=== PATIENT | female | born 1965 | race Caucasian/White ===

== ENCOUNTER 2021-01-29 20:25 | Emergency (ER) | payer MEDICARE, MEDICAID, SELFPAY ==
--- NOTE | ~2021-01-29 | XR_ITS ---
EXAMINATION: PORTABLE CHEST 1 VIEW CLINICAL INFORMATION: AMS . COMPARISON: 10/31/2015. TECHNIQUE: Portable frontal view of the chest was obtained. FINDINGS: Left-sided chest port is seen with the tip near the expected cavoatrial junction. Lungs are well expanded. No superimposed focal infiltrate, effusion, edema, or pneumothorax. Prominent skinfold incidentally noted. Cardiac and mediastinal silhouettes within normal limits for size. No acute bony abnormality. XR/XR chest 1V IMPRESSION: Left-sided chest port. No acute airspace disease.
--- NOTE | ~2021-01-29 | CT_ITS ---
EXAMINATION: CT HEAD WITHOUT CONTRAST CLINICAL INFORMATION: Altered mental status COMPARISON: 09/22/2016 TECHNIQUE: Contiguous axial imaging was performed from the skull base to vertex without intravenous administration of contrast. This CT examination was performed using dose optimization techniques as appropriate, variously including the following: *Automated exposure control *Adjustment of mA and/or kV according to patient size (this includes techniques or standardized protocols for targeted exams where dose is matched to indication/reason for exam; i.e. extremities or head) *Use of iterative reconstruction technique DLP: 642 mGy-cm FINDINGS: There is no evidence of acute intracranial hemorrhage or territorial infarction. No abnormal mass effect or midline shift is seen. Trejo to white matter differentiation is well preserved. No extra-axial fluid collections are identified. The ventricles are normal in size. There is no abnormal attenuation within the brain parenchyma. The osseous structures and soft tissues are normal. The mastoid air cells and visualized portions of the paranasal sinuses are well aerated. CT/CT head/brain wo con IMPRESSION: No acute intracranial pathology.
--- NOTE | 2021-01-29 20:41 | ECG_ITS ---
Test Reason : AMS Blood Pressure : / mmHG Vent. Rate : 067 BPM Atrial Rate : 067 BPM P-R Int : 166 ms QRS Dur : 086 ms QT Int : 470 ms P-R-T Axes : 060 -05 044 degrees QTc Int : 496 ms Normal sinus rhythm Prolonged QT Abnormal ECG When compared with ECG of 22-SEP-2016 12:59, Vent. rate has decreased BY 39 BPM Referred By: Alma Lopes Electronically Signed By:PAIGE EVANGELISTA MD
[2021-01-29 20:43] VITALS: BP 125/74; PULSE 77; RESP 12; TEMP 36.3; O2SAT 99; BMI 29.9
--- NOTE | 2021-01-29 20:44 | ED.AMS ---
HPI - Altered Mental Status General Chief Complaint: Psychiatric Symptoms Stated Complaint: crisis Time Seen by Provider: 01/29/21 20:38 Source: EMS Mode of arrival: EMS Limitations: altered mental status History of Present Illness HPI narrative: EMS states they were called for possible seizure, patient was sitting on the toilet with just a bra on speaking in 1 word answers then became agitated per EMS she was given 6mg IV versed for agitation, found to have BS of 62 given 8mL of D10 - at this time on arrival to the ED she is somnolent and difficult to arouse, no trauma noted, review of records show hx of significant neuropsychiatric history with similar presentations in the past MD complaint: other (per EMS called for possible seizure activity) Onset (ago): unknown Severity: severe Consistency of symptoms: unknown Context: history of similar presentation Associated symptoms: denies other symptoms Treatments prior to arrival: glucose and other (IV versed 6mg) Related Data Home Medications Medication Instructions Recorded Confirmed albuterol sulfate 2 puff PO Q6H PRN 01/29/21 01/29/21 cholestyramine (with sugar) 4 g PO BID 01/29/21 01/29/21 citalopram 2 tab PO DAILY 01/29/21 01/29/21 cyclobenzaprine 1 tab PO BID PRN 01/29/21 01/29/21 dextroamphetamine-amphetamine 1 tab PO BID 01/29/21 01/29/21 levetiracetam 250 mg PO TID 01/29/21 01/29/21 ondansetron HCl 1 tab PO TID PRN 01/29/21 01/29/21 oxycodone 1 tab PO QID PRN 01/29/21 01/29/21 sumatriptan succinate 100 mg PO DAILY MRX1 PRN 01/29/21 01/29/21 Allergies Allergy/AdvReac Type Severity Reaction Status Date / Time bee pollen [Bee Stings] Allergy Mild ANAPHYLAXIS Unverified 03/27/20 15:06 codeine [Codeine] Allergy Mild ANAPHYLAXIS Unverified 03/27/20 15:06 Penicillins Allergy Mild UNKNOWN Unverified 03/27/20 15:06 bee stings Allergy Unknown anaphylaxis Uncoded 09/02/11 00:00 Codeine Phosphate Allergy Unknown stomach Uncoded 09/02/11 00:00 upset Penicillin Allergy Unknown anaphylaxis Uncoded 09/02/11 00:00 Review of Systems Review of Systems: ROS unable to be obtained due to altered mental status PMFSH Past Medical History Source: old records reviewed Medical History (Updated 01/30/21 @ 00:44 by Alma Lopes DO) Asthma Breast cancer Depression Factor V deficiency HTN (hypertension) Migraines Polysubstance abuse Seizure Uterine cancer Von Willebrand disease Surgical History (Updated 01/29/21 @ 20:50 by Alma Lopes DO) H/O gastric bypass History of hysterectomy Social History Social History (Updated 01/29/21 @ 20:50 by Alma Lopes DO) Patient Tobacco Use Status: Current everyday Tobacco user Patient : No Physical Exam Vital Signs: Vital Signs: Last Vital Signs Temp 97.4 F 01/29/21 20:43 Pulse 67 01/29/21 22:23 Resp 10 L 01/29/21 22:23 BP 137/80 01/29/21 22:23 Pulse Ox 99 01/29/21 22:23 Body Mass Index 29.9 Appearance: Somnolent difficult to arouse, moderate acute distress Eyes: Pupils equal, round and reactive to light. no nystagmus, sluggish ENT: Pharynx normal. Neck: Normal inspection. Neck supple. CVS: Normal heart rate and rhythm. Pulses normal. Respiratory: No respiratory distress. Breath sounds normal. Abdomen: Soft and nontender. Skin: Skin warm and dry. Normal skin color. Normal skin turgor. Extremities: No lower extremity edema. No calf ttp Neuro: due to degree of somnolence unable to participate in exam Course Course Course Narrative: patient still very sedated VS stable patient with stable VS still very sleepy from prehospital versed, signed out to Dr. Fernandes pending metabolization and recheck of AMS MDM - Altered Mental Status MDM Narrative Medical decision making narrative: 56 yo female with hx of neuropsychiatric history, polysubstance abuse, asthma, seizures, von willebrand at this time unsure what event occured prior to arrival will need labs, UA, CT head for ICH, close respiratory monitoring on end tidal patient given 6mg of versed for agitation, review of EMR notes hx of similar episodes in the past and then deep sedation following IV medications, dispo per reuslts and findings. Lab Data Result diagrams: 01/29/21 21:42 01/29/21 21:42 Labs: Lab Results 01/29/21 01/29/21 01/29/21 Range/Units 21:15 21:41 21:42 WBC 7.5 (4.8-10.8) X10*3/uL RBC 4.00 L (4.20-5.50) X10*6/uL Hgb 12.8 (12.0-16.0) g/dl Hct 38.2 (37-47) % MCV 95.5 (80-98) fL MCH 32.0 (27.0-33.0) pg MCHC 33.5 (31.0-35.0) g/dl RDW 13.3 (11.0-16.0) % Plt Count 143 L (160-400) X10*3/uL MPV 10.8 (9.4-12.3) fL Immature Gran % (Auto) 0.4 (0.0-0.4) % Neut % (Auto) 66.4 (45-73) % Lymph % (Auto) 27.0 (20-40) % [place] % (Auto) 6.1 (2-11) % Eos % (Auto) 0.0 (0-4) % Baso % (Auto) 0.1 (0-2) % Lymph # (Auto) 2.0 (1.2-4.9) X10*3/uL [place] # (Auto) 0.5 (0.1-1.2) X10*3/uL Eos # (Auto) 0.0 (0.0-0.4) X10*3/uL Baso # (Auto) 0.0 (0.0-0.2) X10*3/uL Abs Immat Gran (auto) 0.03 (0.00-0.03) X10*3/uL Absolute Neuts (auto) 5.0 (2.0-8.3) X10*3/uL Absolute Nucleated RBC 0.000 (0.0-0.012) X10*3/uL Nucleated RBC % (auto) 0.0 (0.0-0.2) /100WBC PT (9.9-13.0) SEC INR (0.9-1.1) APTT (24.1-38.0) SEC VBG pH (7.32-7.43) VBG pCO2 mmHg VBG pO2 mmHg VBG HCO3 (22-26) mmol/L VBG O2 Saturation % VBG Base Excess mmol/L Sodium (135-145) mmol/L Potassium (3.3-5.1) mmol/L Chloride (96-108) mmol/L Carbon Dioxide (22-29) mmol/L Anion Gap (12-20) BUN (9-16) mg/dL Creatinine (0.5-1.4) mg/dL Estim Creat Clear Calc Estimated GFR POC Glucose 86 (60-115) mg/dL Random Glucose (60-115) mg/dL Calcium (8.4-10.2) mg/dL Magnesium (1.6-2.6) mg/dL Total Bilirubin (0.0-1.0) mg/dL Direct Bilirubin (0.0-0.5) mg/dL AST (5-31) U/L ALT (0-31) U/L Alkaline Phosphatase (39-117) U/L Ammonia 20 (13-55) umol/L Total Creatine Kinase (26-140) U/L Troponin I High Sens (<3.5-17.0) ng/L Total Protein (6.5-8.0) g/dL Albumin (3.5-5.0) g/dL Lipase (8-78) U/L TSH (0.32-4.0) uIU/mL Urine Color Urine Appearance Urine pH (5.0-8.0) Ur Specific [place] (1.005-1.025) Urine Protein (NEG-TRACE) MG/DL Urine Glucose (UA) (NEG) MG/DL Urine Ketones (NEG) MG/DL Urine Blood (NEG) Urine Nitrite (NEG) Ur Leukocyte Esterase (NEG) Salicylates (15-30) mg/dL Urine Opiates Screen (Not Detect) Acetaminophen (<30) mcg/mL Ur Barbiturates Screen (Not Detect) Ur Phencyclidine Scrn (Not Detect) Ur Amphetamines Screen (Not Detect) U Benzodiazepines Scrn (Not Detect) Urine Cocaine Screen (Not Detect) U Marijuana (THC) Screen (Not Detect) Ethyl Alcohol mg/dL COVID-19 (YOLIS) (Negative) COVID-19 Clin Com 01/29/21 01/29/21 01/29/21 Range/Units 21:42 21:42 21:42 WBC (4.8-10.8) X10*3/uL RBC (4.20-5.50) X10*6/uL Hgb (12.0-16.0) g/dl Hct (37-47) % MCV (80-98) fL MCH (27.0-33.0) pg MCHC (31.0-35.0) g/dl RDW (11.0-16.0) % Plt Count (160-400) X10*3/uL MPV (9.4-12.3) fL Immature Gran % (Auto) (0.0-0.4) % Neut % (Auto) (45-73) % Lymph % (Auto) (20-40) % [place] % (Auto) (2-11) % Eos % (Auto) (0-4) % Baso % (Auto) (0-2) % Lymph # (Auto) (1.2-4.9) X10*3/uL [place] # (Auto) (0.1-1.2) X10*3/uL Eos # (Auto) (0.0-0.4) X10*3/uL Baso # (Auto) (0.0-0.2) X10*3/uL Abs Immat Gran (auto) (0.00-0.03) X10*3/uL Absolute Neuts (auto) (2.0-8.3) X10*3/uL Absolute Nucleated RBC (0.0-0.012) X10*3/uL Nucleated RBC % (auto) (0.0-0.2) /100WBC PT 11.8 (9.9-13.0) SEC INR 1.0 (0.9-1.1) APTT 58.9 H (24.1-38.0) SEC VBG pH (7.32-7.43) VBG pCO2 mmHg VBG pO2 mmHg VBG HCO3 (22-26) mmol/L VBG O2 Saturation % VBG Base Excess mmol/L Sodium 142 (135-145) mmol/L Potassium 3.9 (3.3-5.1) mmol/L Chloride 112 H (96-108) mmol/L Carbon Dioxide 19 L (22-29) mmol/L Anion Gap 15 (12-20) BUN 30 H (9-16) mg/dL Creatinine 1.87 H (0.5-1.4) mg/dL Estim Creat Clear Calc 35.4 Estimated GFR 28 POC Glucose (60-115) mg/dL Random Glucose 80 (60-115) mg/dL Calcium 9.2 (8.4-10.2) mg/dL Magnesium 1.9 (1.6-2.6) mg/dL Total Bilirubin 0.4 (0.0-1.0) mg/dL Direct Bilirubin 0.2 (0.0-0.5) mg/dL AST 29 (5-31) U/L ALT 17 (0-31) U/L Alkaline Phosphatase 114 (39-117) U/L Ammonia (13-55) umol/L Total Creatine Kinase 193 H (26-140) U/L Troponin I High Sens 9.8 (<3.5-17.0) ng/L Total Protein 6.2 L (6.5-8.0) g/dL Albumin 4.2 (3.5-5.0) g/dL Lipase 11 (8-78) U/L TSH 1.39 (0.32-4.0) uIU/mL Urine Color Urine Appearance Urine pH (5.0-8.0) Ur Specific [place] (1.005-1.025) Urine Protein (NEG-TRACE) MG/DL Urine Glucose (UA) (NEG) MG/DL Urine Ketones (NEG) MG/DL Urine Blood (NEG) Urine Nitrite (NEG) Ur Leukocyte Esterase (NEG) Salicylates 8.1 L (15-30) mg/dL Urine Opiates Screen (Not Detect) Acetaminophen 3 (<30) mcg/mL Ur Barbiturates Screen (Not Detect) Ur Phencyclidine Scrn (Not Detect) Ur Amphetamines Screen (Not Detect) U Benzodiazepines Scrn (Not Detect) Urine Cocaine Screen (Not Detect) U Marijuana (THC) Screen (Not Detect) Ethyl Alcohol mg/dL COVID-19 (YOLIS) (Negative) COVID-19 Clin Com 01/29/21 01/29/21 01/29/21 Range/Units 21:42 21:42 21:43 WBC (4.8-10.8) X10*3/uL RBC (4.20-5.50) X10*6/uL Hgb (12.0-16.0) g/dl Hct (37-47) % MCV (80-98) fL MCH (27.0-33.0) pg MCHC (31.0-35.0) g/dl RDW (11.0-16.0) % Plt Count (160-400) X10*3/uL MPV (9.4-12.3) fL Immature Gran % (Auto) (0.0-0.4) % Neut % (Auto) (45-73) % Lymph % (Auto) (20-40) % [place] % (Auto) (2-11) % Eos % (Auto) (0-4) % Baso % (Auto) (0-2) % Lymph # (Auto) (1.2-4.9) X10*3/uL [place] # (Auto) (0.1-1.2) X10*3/uL Eos # (Auto) (0.0-0.4) X10*3/uL Baso # (Auto) (0.0-0.2) X10*3/uL Abs Immat Gran (auto) (0.00-0.03) X10*3/uL Absolute Neuts (auto) (2.0-8.3) X10*3/uL Absolute Nucleated RBC (0.0-0.012) X10*3/uL Nucleated RBC % (auto) (0.0-0.2) /100WBC PT (9.9-13.0) SEC INR (0.9-1.1) APTT (24.1-38.0) SEC VBG pH 7.26 L (7.32-7.43) VBG pCO2 39 mmHg VBG pO2 93 mmHg VBG HCO3 18 L (22-26) mmol/L VBG O2 Saturation 94.0 % VBG Base Excess -8.3 mmol/L Sodium (135-145) mmol/L Potassium (3.3-5.1) mmol/L Chloride (96-108) mmol/L Carbon Dioxide (22-29) mmol/L Anion Gap (12-20) BUN (9-16) mg/dL Creatinine (0.5-1.4) mg/dL Estim Creat Clear Calc Estimated GFR POC Glucose (60-115) mg/dL Random Glucose (60-115) mg/dL Calcium (8.4-10.2) mg/dL Magnesium (1.6-2.6) mg/dL Total Bilirubin (0.0-1.0) mg/dL Direct Bilirubin (0.0-0.5) mg/dL AST (5-31) U/L ALT (0-31) U/L Alkaline Phosphatase (39-117) U/L Ammonia (13-55) umol/L Total Creatine Kinase (26-140) U/L Troponin I High Sens (<3.5-17.0) ng/L Total Protein (6.5-8.0) g/dL Albumin (3.5-5.0) g/dL Lipase (8-78) U/L TSH (0.32-4.0) uIU/mL Urine Color Urine Appearance Urine pH (5.0-8.0) Ur Specific [place] (1.005-1.025) Urine Protein (NEG-TRACE) MG/DL Urine Glucose (UA) (NEG) MG/DL Urine Ketones (NEG) MG/DL Urine Blood (NEG) Urine Nitrite (NEG) Ur Leukocyte Esterase (NEG) Salicylates (15-30) mg/dL Urine Opiates Screen (Not Detect) Acetaminophen (<30) mcg/mL Ur Barbiturates Screen (Not Detect) Ur Phencyclidine Scrn (Not Detect) Ur Amphetamines Screen (Not Detect) U Benzodiazepines Scrn (Not Detect) Urine Cocaine Screen (Not Detect) U Marijuana (THC) Screen (Not Detect) Ethyl Alcohol < 10 mg/dL COVID-19 (YOLIS) Negative (Negative) COVID-19 Clin Com See Note 01/29/21 01/29/21 Range/Units 22:59 22:59 WBC (4.8-10.8) X10*3/uL RBC (4.20-5.50) X10*6/uL Hgb (12.0-16.0) g/dl Hct (37-47) % MCV (80-98) fL MCH (27.0-33.0) pg MCHC (31.0-35.0) g/dl RDW (11.0-16.0) % Plt Count (160-400) X10*3/uL MPV (9.4-12.3) fL Immature Gran % (Auto) (0.0-0.4) % Neut % (Auto) (45-73) % Lymph % (Auto) (20-40) % [place] % (Auto) (2-11) % Eos % (Auto) (0-4) % Baso % (Auto) (0-2) % Lymph # (Auto) (1.2-4.9) X10*3/uL [place] # (Auto) (0.1-1.2) X10*3/uL Eos # (Auto) (0.0-0.4) X10*3/uL Baso # (Auto) (0.0-0.2) X10*3/uL Abs Immat Gran (auto) (0.00-0.03) X10*3/uL Absolute Neuts (auto) (2.0-8.3) X10*3/uL Absolute Nucleated RBC (0.0-0.012) X10*3/uL Nucleated RBC % (auto) (0.0-0.2) /100WBC PT (9.9-13.0) SEC INR (0.9-1.1) APTT (24.1-38.0) SEC VBG pH (7.32-7.43) VBG pCO2 mmHg VBG pO2 mmHg VBG HCO3 (22-26) mmol/L VBG O2 Saturation % VBG Base Excess mmol/L Sodium (135-145) mmol/L Potassium (3.3-5.1) mmol/L Chloride (96-108) mmol/L Carbon Dioxide (22-29) mmol/L Anion Gap (12-20) BUN (9-16) mg/dL Creatinine (0.5-1.4) mg/dL Estim Creat Clear Calc Estimated GFR POC Glucose (60-115) mg/dL Random Glucose (60-115) mg/dL Calcium (8.4-10.2) mg/dL Magnesium (1.6-2.6) mg/dL Total Bilirubin (0.0-1.0) mg/dL Direct Bilirubin (0.0-0.5) mg/dL AST (5-31) U/L ALT (0-31) U/L Alkaline Phosphatase (39-117) U/L Ammonia (13-55) umol/L Total Creatine Kinase (26-140) U/L Troponin I High Sens (<3.5-17.0) ng/L Total Protein (6.5-8.0) g/dL Albumin (3.5-5.0) g/dL Lipase (8-78) U/L TSH (0.32-4.0) uIU/mL Urine Color YELLOW Urine Appearance CLEAR Urine pH 6.0 (5.0-8.0) Ur Specific [place] 1.015 (1.005-1.025) Urine Protein NEG (NEG-TRACE) MG/DL Urine Glucose (UA) NEG (NEG) MG/DL Urine Ketones 5 (NEG) MG/DL Urine Blood NEG (NEG) Urine Nitrite NEG (NEG) Ur Leukocyte Esterase NEG (NEG) Salicylates (15-30) mg/dL Urine Opiates Screen Not Detected (Not Detect) Acetaminophen (<30) mcg/mL Ur Barbiturates Screen Not Detected (Not Detect) Ur Phencyclidine Scrn Not Detected (Not Detect) Ur Amphetamines Screen POSITIVE H (Not Detect) U Benzodiazepines Scrn POSITIVE H (Not Detect) Urine Cocaine Screen Not Detected (Not Detect) U Marijuana (THC) Screen Not Detected (Not Detect) Ethyl Alcohol mg/dL COVID-19 (YOLIS) (Negative) COVID-19 Clin Com ECG Data ECG #1: Attestation: I personally reviewed and interpreted this ECG as follows: ECG interpretation date: 01/29/21 ECG interpretation time: 22:08 Interpretation: Rate: 67 Rhythm: NSR [place]: left Normal P waves. Normal XAVIER. Normal QRS complex. ST T wave : normal no JUANY qTC: prolonged prior studies: no acute ischemia The study has been interpreted contemporaneously by me. . Discharge Plan Discharge Clinical Impression: Acute alteration in mental status, ROBEL (acute kidney injury) Prescriptions: No Action cyclobenzaprine 10 mg tablet 1 tab PO BID PRN (Reason: Spasms) RF: 0 citalopram 10 mg tablet 2 tab PO DAILY RF: 0 sumatriptan succinate 100 mg tablet 100 mg PO DAILY MRX1 PRN (Reason: Headache) RF: 0 ondansetron HCl 8 mg tablet 1 tab PO TID PRN (Reason: nausea/vomiting) RF: 0 dextroamphetamine-amphetamine 10 mg tablet 1 tab PO BID RF: 0 oxycodone 15 mg tablet 1 tab PO QID PRN (Reason: pain) RF: 0 levetiracetam 250 mg tablet 250 mg PO TID RF: 0 albuterol sulfate 90 mcg/actuation HFA aerosol inhaler 2 puff PO Q6H PRN (Reason: wheezing) RF: 0 cholestyramine (with sugar) 4 gram powder 4 g PO BID RF: 0
[2021-01-29 21:18] LABS: Glucose, Whole Blood 86 mg/dL (60-115)
[2021-01-29] MEDS: 0.9 % Sodium Chloride 1,000 ML 999 ML IVCONT (21:46)
[2021-01-29 21:48] LABS: MANUAL DIFF FLAG NO
[2021-01-29 21:50] LABS: Venous Blood Gas Refer to POC result
[2021-01-29 21:51] LABS: Basophils Percent Auto 0.1 % (0-2); Hematocrit 38.2 % (37-47); Hemoglobin 12.8 g/dl (12.0-16.0); Imm Gran Abs Auto 0.03 X10*3/uL (0.00-0.03); Imm Gran Pct Auto 0.4 % (0.0-0.4); Mean Corpuscular HGB Conc 33.5 g/dl (31.0-35.0); Mean Corpuscular Volume 95.5 fL (80-98); Mean Platelet Volume 10.8 fL (9.4-12.3); Monocytes Absolute Auto 0.5 X10*3/uL (0.1-1.2); Monocytes Percent Auto 6.1 % (2-11); Neutrophils Percent Auto 66.4 % (45-73); Platelet Count 143 X10*3/uL (160-400); Red Cell Distribution Width 13.3 % (11.0-16.0); White Blood Count 7.5 X10*3/uL (4.8-10.8)
[2021-01-29 21:52] LABS: VBG Base Excess -8.3 mmol/L; VBG HCO3 18 mmol/L (22-26); VBG pCO2 39 mmHg; VBG pH 7.26 (7.32-7.43); VBG pO2 93 mmHg
[2021-01-29 21:59] LABS: Prothrombin Time 11.8 SEC (9.9-13.0)
[2021-01-29 22:02] LABS: Partial Thromboplastin Time 58.9 SEC (24.1-38.0)
[2021-01-29 22:07] LABS: COVID-19 Test Negative (Negative); IDNOW Serial# 9DD0AD1C
--- NOTE | 2021-01-29 22:17 | PHA.MEDREC ---
Pharmacy Consult ? Medication Reconciliation Pharmacy has completed the medication reconciliation. Patient could not be aroused. Medication reconciliation done using pharmacy history, son, and RX bottles
[2021-01-29 22:20] LABS: Ethanol < 10 mg/dL
[2021-01-29 22:23] VITALS: BP 137/80; PULSE 67; RESP 10; O2SAT 99
[2021-01-29 22:25] LABS: Acetaminophen LAB 3 mcg/mL (<30); Alanine Aminotransferase 17 U/L (0-31); Albumin Level 4.2 g/dL (3.5-5.0); Alkaline Phosphatase 114 U/L (39-117); Anion Gap 15 (12-20); Aspartate Amino Transferase 29 U/L (5-31); Bilirubin Direct 0.2 mg/dL (0.0-0.5); Bilirubin Total 0.4 mg/dL (0.0-1.0); Blood Urea Nitrogen 30 mg/dL (9-16); Calcium 9.2 mg/dL (8.4-10.2); Carbon Dioxide 19 mmol/L (22-29); Chloride 112 mmol/L (96-108); Creatinine Clr Calc Pharmacy 35.4; Estimated Glomerular Filt Rate 28; Glucose Random 80 mg/dL (60-115); Lipase 11 U/L (8-78); Magnesium 1.9 mg/dL (1.6-2.6); Potassium 3.9 mmol/L (3.3-5.1); Sodium 142 mmol/L (135-145); Total Protein 6.2 g/dL (6.5-8.0); Troponin-I High Sensitivity 9.8 ng/L (<3.5-17.0)
[2021-01-29 22:30] LABS: Ammonia 20 umol/L (13-55)
[2021-01-29 22:43] LABS: TSH reflex Free T4 1.39 uIU/mL (0.32-4.0)
[2021-01-29 23:04] LABS: Salicylate 8.1 mg/dL (15-30)
[2021-01-29 23:12] LABS: Glucose Urine UA NEG (NEG); Leukocyte Esterase Urine NEG (NEG); Nitrite Urine NEG (NEG); Specific Gravity - Urine 1.015 (1.005-1.025); Urine Blood NEG (NEG); Urine Ketones 5 MG/DL (NEG); Urine Protein NEG (NEG-TRACE)
[2021-01-29 23:13] LABS: Appearance Urine CLEAR; Color Urine YELLOW
[2021-01-29 23:38] LABS: Amphetamine Screen Urine POSITIVE (Not Detect); Barbiturates, Urine Not Detected (Not Detect); Benzodiazepines Screen Urine POSITIVE (Not Detect); Cannabinoid Screen Urine Not Detected (Not Detect); Cocaine Screen Urine Not Detected (Not Detect); Opiate Screen Urine Not Detected (Not Detect); Phencyclidine Screen Urine Not Detected (Not Detect)
[2021-01-30 01:00] LABS: Glucose, Whole Blood 118 mg/dL (60-115)
--- NOTE | 2021-01-30 01:22 | PC.NURSE ---
pts son Jeronimo ([phone]) called for an update on his mother. this nurse let him know that we are continuously monitoring her status and vital signs and are awaiting for some of the lab results to come back but otherwise she is sleeping and in stable condition. Jeronimo requests a phone call with any updates or changes in status. he has no other questions or comments at this time.
[2021-01-30 02:39] VITALS: BP 176/94; PULSE 60; RESP 12; O2SAT 100
--- NOTE | 2021-01-30 02:54 | PC.NURSE ---
bp 176/94 notified no new orders at this time
[2021-01-30 04:12] LABS: Anion Gap 15 (12-20); Blood Urea Nitrogen 26 mg/dL (9-16); Carbon Dioxide 19 mmol/L (22-29); Chloride 114 mmol/L (96-108); Creatinine Clr Calc Pharmacy 44.5; Estimated Glomerular Filt Rate 36; Glucose Random 64 mg/dL (60-115); Potassium 3.9 mmol/L (3.3-5.1); Sodium 144 mmol/L (135-145)
[2021-01-30 05:03] VITALS: BP 189/95; PULSE 56; RESP 14; O2SAT 100
--- NOTE | 2021-01-30 05:04 | PC.NURSE ---
bp 189/95 (Dom) aware, no new orders at this time.
--- NOTE | 2021-01-30 05:11 | PC.NURSE ---
pt intermittently waking up and groaning/shouting out, not verbalizing anything or saying any specific words. pt unable to provide verbal response to nurse when asked questions regarding her pain or when assessing orientation status. pt will rock back and forth in bed while groaning and then settle back down and fall asleep. MD Lopez) notified. pt is asleep again at this time. call pelletier in reach.
[2021-01-30 05:45] VITALS: BP 145/82; PULSE 76; RESP 19; O2SAT 100
--- NOTE | 2021-01-30 06:59 | PC.NURSE ---
report taken from phyllis galdamez pt here for ?seizure activity at home, per family pt recieved blood transfusion yesterday morning. 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 pt has remained unable to formulate clear thoughts while in the er, has been intermittently showing labile movements throughout er stay. pt appears to be lying in stretcher, moaning. rr even/unlabored wctm for dc needs.
[2021-01-30] MEDS: levETIRAcetam 250 MG TABLET PO (09:28)
[2021-01-30] MEDS: Amphetamine Mixed Salts 10 MG TABLET PO (09:28)
[2021-01-30] MEDS: Escitalopram Oxalate 10 MG TABLET PO (09:29)
--- NOTE | 2021-01-30 10:40 | MHC.CARE ---
CARE Team attempted to completed assessment on Pt. Pt was orientated to person only. CARE Team contacted Pts son Jeronimo to obtain collateral information. Jeronimo reported he contacted EMS after his mother had what appeared to be a seizure. 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 Pts normal basic line functioning is like any other person . Pt has neurologist through [facility] and recently underwent significant testing. He reported he believes she is medication compliant. 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 Pt has recently had a kidney infection and is unsure if antibotics have been completed or outcotme? Pt had chronic pain and is followed by a pain management clinic - Dr. Nicolas Arechiga in [place]. Pt has a history of [facility]PLOC admission 20 plus years ago. Pts son does not have concerns at this time that it is psychiatrically related. CARE Team informed attending RN and Provider of this information. CARE Team will not have further intervention at this time pending provider review of medical records from [facility] and [facility].
--- NOTE | 2021-01-30 10:48 | PC.NURSE ---
son called and wanted clients neurologist in [place] updated Nancy Lopez [phone] or [phone]
[2021-01-30] MEDS: LORazepam 0.5 MG TABLET 2 MG PO (11:07)
[2021-01-30] MEDS: Haloperidol Lactate 5 MG/ML VIAL IM (15:17)
[2021-01-30] MEDS: LORazepam 2 MG/ML VIAL IM (15:17)
[2021-01-30 16:36] VITALS: RESP 17
--- NOTE | 2021-01-30 20:53 | MHC.CARE ---
Bedsearch Note: Clinical packet faxed to the following facilities for review [facility] ~ ph: [phone] fax: [phone] [facility] ~ ph: [phone] fax: [phone] [facility] ~ ph: [phone] fax: [phone] [facility] ~ ph: [phone] fax: [phone] [facility] ~ ph: [phone] fax: [phone]
--- NOTE | 2021-01-30 21:14 | PC.NURSE ---
Cholestyramine unavailable in ED Pyxis. This RN contacted Pharmacy to bring medication. Will administer medication upon arrival.
[2021-01-31 01:25] VITALS: BP 127/91; PULSE 87; RESP 20; TEMP 36.2; O2SAT 99
--- NOTE | 2021-01-31 01:47 | PC.NURSE ---
Spoke with patient's son (Jeronimo). Given update on patient's condition. Just prior to phone call from son, pt was standing in doorway appearing confused, stated I'm cold and given warm blanket. Pt redirected to bed without issue.
--- NOTE | 2021-01-31 06:51 | PC.NURSE ---
Patient woke around 6am and was a bit restless, pacing and standing in hallway. A&Ox3, remains confused; I want to go home , reminded of why she is here and the plan for a bed search. Patient remained calm and cooperative. Tends to keep eyes closed when standing needing reminders to keep eyes open as remains a fall risk. Denies pain. Will continue to monitor.
[2021-01-31 08:00] VITALS: BP 166/92; PULSE 63; RESP 16; TEMP 36.3; O2SAT 98
--- NOTE | 2021-01-31 09:46 | PC.NURSE ---
Tentative plan per care team to d/c pt home after talking with pt and pt's son.
[2021-01-31] MEDS: Escitalopram Oxalate 10 MG TABLET PO (10:19)
[2021-01-31] MEDS: Amphetamine Mixed Salts 10 MG TABLET PO (10:19)
[2021-02-05 11:12] LABS: Levetiracetam Keppra 38.3 mcg/mL (12.0-46.0)
== END 2021-01-31 10:50 | disposition home or self-care (01) ==
PROVIDERS: Emergency Medicine; Physician Assistant Medical; Emergency Provider Emergency Medicine Emergency Medical Services
DX: F33.1 Major depressive disorder, recurrent, moderate (principal); N17.9 Acute kidney failure, unspecified; D68.0 Von Willebrand disease; D68.51 Activated protein C resistance; I10 Essential (primary) hypertension; Z20.822 Contact with and (suspected) exposure to COVID-19; Z79.899 Other long term (current) drug therapy
CPT/HCPCS: 36415; 70450; 71045; 80048; 80076; 80143; 80177; 80179; 80307; 81003; 82077; 82140; 82550; 82803; 82947; 83690; 83735; 84443; 84484; 85025; 85610; 85730; 87635; 93005; 96372; 99285; J2060

== ENCOUNTER 2023-01-05 09:59 | Outpatient (RCR) | payer MEDICARE, MEDICAID, SELFPAY | END 2023-01-05 23:59 | disposition home or self-care (01) | LOC: HO.PHPA 09:59 | PROVIDERS: Visit Provider Psychiatry & Neurology Psychiatry | DX: F33.1 Major depressive disorder, recurrent, moderate (principal); F42.9 Obsessive-compulsive disorder, unspecified; F43.10 Post-traumatic stress disorder, unspecified; F11.21 Opioid dependence, in remission; F14.21 Cocaine dependence, in remission | CPT/HCPCS: 90791 ==

== ENCOUNTER → 2023-02-03 09:28 | Outpatient (BNV) | payer MEDICARE, MEDICAID, SELFPAY | PROVIDERS: Visit Provider Psychiatry & Neurology Psychiatry | DX: F43.10 Post-traumatic stress disorder, unspecified (principal) | CPT/HCPCS: 90792 ==

== ENCOUNTER 2023-02-04 09:15 | Outpatient (RCR) | payer MEDICARE, MEDICAID, SELFPAY ==
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
--- NOTE | 2023-02-07 09:30 | HO.PHP ---
I called and left a message for the client to call as she did not come in . I requested a call back.
--- NOTE | 2023-02-07 09:52 | HO.PHP ---
I called Shaista the client emergency contact and left a message re clients absence and not returning call. I requested a return call .
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
--- NOTE | 2023-02-09 11:07 | HO.PHP ---
On 02/07/23 Terrie called stating that she is sorry she didn't call and informed us that she was at [facility] being assessed for inpt.
--- NOTE | 2023-02-09 11:11 | HO.PHP ---
I called the clients phone re check on inpatient status. I could not leave a message because her mail box was full.
--- NOTE | 2023-02-09 11:22 | HO.PHP ---
On 02/08/23 I spoke with the clients personal lines appraiser , Nataliya Tsang. She informed me that the client was admitted inpatient at [facility].
== END 2023-02-04 23:59 | disposition admitted as inpatient to this hospital (09) ==
LOC: HO.PHPA 09:15
PROVIDERS: Visit Provider Psychiatry & Neurology Psychiatry
DX: F43.10 Post-traumatic stress disorder, unspecified (principal); Z79.899 Other long term (current) drug therapy
CPT/HCPCS: 90791; 90853

== ENCOUNTER → 2023-04-29 11:45 | Outpatient (BNV) | payer MEDICARE, MEDICAID, SELFPAY | PROVIDERS: Visit Provider Psychiatry & Neurology Psychiatry | DX: F43.10 Post-traumatic stress disorder, unspecified (principal); F33.2 Major depressive disorder, recurrent severe without psychotic features | CPT/HCPCS: 90792; 99213; 99499 ==

== ENCOUNTER 2023-05-06 14:23 | Outpatient (REF) | payer MEDICARE, MEDICAID, SELFPAY ==
[2023-05-06 15:27] LABS: Amphetamine Screen Urine Not Detected (Not Detect); Barbiturates, Urine Not Detected (Not Detect); Benzodiazepines Screen Urine Not Detected (Not Detect); Cannabinoid Screen Urine Not Detected (Not Detect); Cocaine Screen Urine Not Detected (Not Detect); Fentanyl, urine Not Detected (Not Detect); Opiate Screen Urine POSITIVE (Not Detect); Phencyclidine Screen Urine Not Detected (Not Detect)
== END 2023-05-06 14:24 | disposition home or self-care (01) ==
LOC: HO.LNP 14:23
PROVIDERS: Visit Provider Psychiatry & Neurology Psychiatry
DX: F11.20 Opioid dependence, uncomplicated (principal); F14.21 Cocaine dependence, in remission
CPT/HCPCS: 80307

== ENCOUNTER 2023-05-23 11:45 | Outpatient (RCR) | payer MEDICARE, MEDICAID, SELFPAY ==
[2023-04-28 10:46] VITALS: BP 77/59; PULSE 60; TEMP 36.8
[2023-04-28 10:54] VITALS: BMI 23.0
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
--- NOTE | 2023-04-29 08:20 | HO.PHP ---
The clients case was reviewed and opened in treatment team.
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
--- NOTE | 2023-05-02 09:38 | PC.NURSE ---
Jayda did not show up to the program this morning. I called her and she stated she is not coming in today as she has a migraine headache. She reports VNA services for medication management started on Tuesday and the VNA nurse is coming to see her today also. She plans on coming to the program Tomorrow.
--- NOTE | 2023-05-06 12:50 | HO.PHP ---
PHP [facility] and med management for Liana.
--- NOTE | 2023-05-06 15:10 | HO.PHPPROGNO ---
Subjective Subjective Date of Service: 05/06/23 Reason For Visit: anxiety,depression,PTSD Interim History: Patient seen for follow-up. Wants to discuss whether medication is effective. She reports she is not having her best day, got triggered yesterday in groups. It becomes apparent to her at times that she is still struggling with anxiety, depression and it frustrated her that her medications arent helping her feel better and feeling like whats' the point of taking them and whether they are doing any good. Sleep has also been disrupted, both due to nightmares and chronic pain. She continues on Seoquel 50 mg qhs for sleep, she also has 25 mg BID prn however blood pressures have been running low and she is scheduled to followup with her community providers regarding the hypotension. For now we wont make any changes with the Serouqel, for same reasons, she also can not take prazosin) Instead will focus on general sleep hygiene and mitigating symptoms contributing to poor sleep. Namely anxiety, PTSD. She has felt the duloxetine had been helpful but never felt fully treated. She denies any AE at 90 mg qd (she takes regularly in mary AM) and is open to increasing dose to 120 mg and will split dose (60 mg BID). to target ongoing depressive sx, anxiety and sx of PTSD. Denies any thoughts of harming herself or others. No agitation or psychosis. Medication Compliance: Yes Side effects from medications: No Mental Status Exam Mental Status Exam Narrative: Patient Appearance: Well Grooomed Patient Orientation: Person, Place, Time and Situation Level of Consciousness: Awake and Alert Patient Behavior: Appropriate, Cooperative and Good Eye Contact Mood Description: Depressed and Anxious Affect Description: Appropriate and Anxious Patient Cognition Impaired: No Ability to Follow Directions: Excellent Speech Pattern: Spontaneous Speech Memory Description: Intact Hallucinations: None Delusions: Not Present Thought Process: no evidence of disorganization or poverty Thought Content: Circumstantial, ruminative Judgement: Good Diagnostics Vital Signs (24Hr): BMI result Body Mass Index 23.0 Assessment & Plan Assessment & Plan (1) Complex posttraumatic stress disorder: Status: Acute Code(s): F43.10 - Post-traumatic stress disorder, unspecified (2) Major depressive disorder in partial remission: Status: Acute Code(s): F32.4 - Major depressive disorder, single episode, in partial remission Patient educated on: diagnosis and medication risk/benefits Informed Consent: understands Reason for contiued partial hosp. stay Substantial Risk for: inability to function and med/psych decompensation Certification I certify that partial hospital treatment is medically necessary due to the symptoms and problems resulting from the patient's mental illness and the failure to treat the patient at the partial hospital level of care would likely result in the patient requiring inpatient psychiatric care which could not be prevented at a less intensive level of care. Total time managing care of this patient today __30__ minutes. Discharge Plan Discharge Attending provider: Beth Briones Medications: No Action ondansetron HCl 8 mg tablet 1 tab PO TID PRN (Reason: nausea/vomiting) albuterol sulfate 90 mcg/actuation HFA aerosol inhaler 2 puff PO Q6H PRN (Reason: wheezing) quetiapine 25 mg tablet 25 mg PO BID Patient Comments: Patient stated she takes prn. She stated her prescriber is aware. quetiapine 25 mg tablet 50 mg PO BEDTIME Rx Instructions: 2 tabs at HS. loperamide 2 mg capsule 2 mg PO Q4H PRN (Reason: diarrhea) duloxetine 30 mg capsule,delayed release(DR/EC) 30 mg PO DAILY duloxetine 60 mg capsule,delayed release(DR/EC) 60 mg PO DAILY multivitamin Tablet 1 tab PO DAILY cetirizine 10 mg tablet 10 mg PO DAILY sumatriptan succinate 100 mg tablet 100 mg PO DAILY PRN (Reason: Migraine Headache) clonazepam 0.5 mg tablet 0.5 mg PO BID PRN (Reason: anxiety) oxycodone 15 mg tablet 15 mg PO 5XD Patient Comments: Patient stated takes prn. bumetanide 0.5 mg tablet 0.5 mg PO BID omeprazole 20 mg capsule,delayed release(DR/EC) 20 mg PO DAILY epinephrine 0.3 mg/0.3 mL auto-injector 0.3 mg IM ONCE levetiracetam 1,000 mg tablet 1,000 mg PO BID
--- NOTE | 2023-05-11 00:58 | HO.PHPPROGNO ---
Subjective Subjective Date of Service: 05/10/23 Reason For Visit: anxiety,depression,PTSD Interim History: Patient seen today for follow-up. Reporting continued issues with sleep, getting out of control . Feels it is affecting her anxiety and stress tolerance. Also poor sleep making it harder to appreciate any mood changes. She has an appointment tomorrow to meet with her operating systems programmer for work-up involving issues with low blood pressures. She agrees to speak with her operating systems programmer regarding potential change from quetiapine to olanzapine to better address sleep and perhaps mood as well. She will see if he has any reservations about this plan. I am hoping she will be more sensitive to the olanzapine, which may provider more benefit at a lower dose than the equivalent dose on Seroquel which she has grown more tolerant of. She denies any thoughts of giving up on life, no thoughts harming self or others at this time. No AH or VH. Medication Compliance: Yes Side effects from medications: No Attending Groups: Yes Mental Status Exam Mental Status Exam Narrative: Patient alert and oriented. In no acute distress. Patient Appearance: Well Grooomed, adentulous Level of Consciousness: Awake and Alert Patient Behavior: Appropriate, Cooperative and Good Eye Contact Mood Description: Depressed and Anxious Affect Description: Appropriate and Anxious Patient Cognition Impaired: No Ability to Follow Directions: Excellent Speech Pattern: Spontaneous Speech Memory Description: Intact Hallucinations: None Delusions: Not Present Thought Process: no evidence of disorganization or poverty Thought Content: Circumstantial, ruminative Judgement: Good Insight: good Diagnostics Vital Signs (24Hr): BMI result Body Mass Index 23.0 Assessment & Plan Assessment & Plan (1) Major depressive disorder in partial remission: Status: Acute Code(s): F32.4 - Major depressive disorder, single episode, in partial remission (2) Complex posttraumatic stress disorder: Status: Acute Code(s): F43.10 - Post-traumatic stress disorder, unspecified Plan will continue medications without changes and plan to follow up later in the week to revisit sleep issues, once she has met with operating systems programmer for follow-up re hypotension Patient educated on: diagnosis and medication risk/benefits Informed Consent: understands Reason for contiued partial hosp. stay Substantial Risk for: med/psych decompensation Certification I certify that partial hospital treatment is medically necessary due to the symptoms and problems resulting from the patient's mental illness and the failure to treat the patient at the partial hospital level of care would likely result in the patient requiring inpatient psychiatric care which could not be prevented at a less intensive level of care. Total time managing care of this patient today __30__ minutes. Discharge Plan Discharge Attending provider: Beth Briones Medications: No Action ondansetron HCl 8 mg tablet 1 tab PO TID PRN (Reason: nausea/vomiting) albuterol sulfate 90 mcg/actuation HFA aerosol inhaler 2 puff PO Q6H PRN (Reason: wheezing) quetiapine 25 mg tablet 25 mg PO BID Patient Comments: Patient stated she takes prn. She stated her prescriber is aware. quetiapine 25 mg tablet 50 mg PO BEDTIME Rx Instructions: 2 tabs at HS. loperamide 2 mg capsule 2 mg PO Q4H PRN (Reason: diarrhea) duloxetine 30 mg capsule,delayed release(DR/EC) 30 mg PO DAILY duloxetine 60 mg capsule,delayed release(DR/EC) 60 mg PO DAILY multivitamin Tablet 1 tab PO DAILY cetirizine 10 mg tablet 10 mg PO DAILY sumatriptan succinate 100 mg tablet 100 mg PO DAILY PRN (Reason: Migraine Headache) clonazepam 0.5 mg tablet 0.5 mg PO BID PRN (Reason: anxiety) oxycodone 15 mg tablet 15 mg PO 5XD Patient Comments: Patient stated takes prn. bumetanide 0.5 mg tablet 0.5 mg PO BID omeprazole 20 mg capsule,delayed release(DR/EC) 20 mg PO DAILY epinephrine 0.3 mg/0.3 mL auto-injector 0.3 mg IM ONCE levetiracetam 1,000 mg tablet 1,000 mg PO BID
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
--- NOTE | 2023-05-11 15:20 | PC.NURSE ---
Jayda called and stated she went to complete the scheduled cardiac stress test however when she got there she was told that she needed to do the test in the hospital as they want her to do a nuclear stress test. She stated her BP at cardiac was 68/62 which is good for her. She also stated she told them she thinks she had a seizure in her sleep last night as she was incontinent of urine. She also reports she was having PTSD flashbacks last night at 3 am. She stated her BUN and creatinine are, daya high and she has an appointment tomorrow to complete more lab work and complete an EEG and other cardiac tests. She stated she is waiting for the hospital to call her with the date of the nuclear stress test. She stated she would be leaving the program early to get the tests.
[2023-05-12 11:04] VITALS: BP 108/70; PULSE 74
--- NOTE | 2023-05-12 11:09 | PC.NURSE ---
BP 108/70 P 74. Patient stated she was not feeling well this morning and her son called an ambulance. Jayda stated she got into an argument with her son this morning as she did not want him to call an ambulance however she stated she did not feel well. She stated she received IV fluids in the hospital. Stated she feels better physically. Stated she can only have 2 liters of fluids a day d/t her kidney and cardiac issues. Dr Briones is aware. Dr Briones is also aware that patient stated 2 nights ago she thinks she had a seizure as she woke up incontinent. She also stated she was struggling with PTSD sxs at 3 am that morning.
--- NOTE | 2023-05-12 22:29 | HO.PHPPROGNO ---
Subjective Subjective Date of Service: 05/12/23 Reason For Visit: anxiety,depression,PTSD Interim History: Patient seen for follow-up today. Last seen on 05/10. She had a cardiology appointment yesterday and said she would mention the plan to change to olanzapine which her provider was reportedly agreeable with. She is eager to start on this as sleep has been poor, and really has been struggling, on account of PTSD. She's been overwhelmed by constant flashbacks and traumatic re-experiencing associated with a strong sensory component which has been particularly unnerving, and is getting easily triggered by scents in the environment and mundane tactile provocations (sleeve rubbing against her arm). I cant stand being in my skin . She is more anxious and labile today, became momentarily tearful during the encounter, but was able to self-regulate. The remainder of our discussion she provided medical updates. Claims Associate reportedly did not know what to make of her low blood pressures and she said they mentioned having her see an production painter about this, but did not know specifically for what. 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 She suspects this may be contributing to seizures, as she had reportedly experienced a seizure the night before last. She will be needing to follow up with neurology and will be getting an EEG and then undergoing a nuclear stress test, as she was unable to undergo the stress test yesterday as planned because plywood layup line core layer realized there was a potential interaction between the pharmacological agents used for stress testing and her antiepileptic meds. She is mostly upset she says that now she has virtually no chance of getting her drivers license back. Relays how powerless she feels and just further pushes into a state feeling she has no control over what life I have left . She says she would be okay if something happened and she ceased to exist, she notes that she is not afraid to and that she has all her affairs in order, her son's care is all set for the future. She just adds that she could never do anything to take her life because she could not do that to her son who would be devastated she says if she ever took her life. she therefore will continue to have thoughts of dying but denies any intention or plan, saying she never will consider this an option because of the burden of guilt it would heap upon her son. Medication Compliance: Yes Side effects from medications: No Mental Status Exam Mental Status Exam Narrative: Patient alert and oriented. In no acute distress. Patient Appearance: Well Grooomed, adentulous Level of Consciousness: Awake and Alert Patient Behavior: Appropriate, Cooperative and Good Eye Contact Mood Description: Depressed and Anxious Affect Description: Appropriate and Anxious Patient Cognition Impaired: No Ability to Follow Directions: Excellent Speech Pattern: Spontaneous Speech Memory Description: Intact Hallucinations: None Delusions: Not Present Thought Process: no evidence of disorganization or poverty Thought Content: Circumstantial, ruminative Judgement: fair but adequate Insight: intact Diagnostics Vital Signs (24Hr): Vital Signs - 24 hr 05/12/23 11:04 Pulse Rate 74 Blood Pressure 108/70 BMI result Body Mass Index 23.0 Assessment & Plan Assessment & Plan (1) Major depressive disorder in partial remission: Status: Acute Code(s): F32.4 - Major depressive disorder, single episode, in partial remission (2) Complex posttraumatic stress disorder: Status: Acute Code(s): F43.10 - Post-traumatic stress disorder, unspecified Assessment and Plan: We discuss switching off Seroquel and starting Zyprexa to better address sleep and target anxiety, PTSD, mood. Plan start olanzapine 2.5 mg this evening at 6pm take another 2.5 mg olanzapine at bedtime (unless already tired enough to sleep) duloxetine increased to 60 mg BID refills also sent for Klonopin (discussed concerns/ risks for sedation with concurrent BZD and ZYprexa) pt will not take together this evneing Patient educated on: diagnosis and medication risk/benefits Informed Consent: understands Reason for contiued partial hosp. stay Substantial Risk for: harm to self, inability to function, rapid decompensation and med/psych decompensation Certification I certify that partial hospital treatment is medically necessary due to the symptoms and problems resulting from the patient's mental illness and the failure to treat the patient at the partial hospital level of care would likely result in the patient requiring inpatient psychiatric care which could not be prevented at a less intensive level of care. Total time managing care of this patient today _40___ minutes. Discharge Plan Discharge Attending provider: Beth Briones Medications: New olanzapine 5 mg tablet See Rx Instructions .ROUTE .COMPLEX Qty: 30 0RF Rx Instructions: 5 mg orally ; take 1 tablet po qHS; 1/2 tablet po BID PRN agitation Changed clonazepam 0.5 mg tablet 0.5 mg PO TID PRN (Reason: anxiety) 10 Days Qty: 30 0RF duloxetine 60 mg capsule,delayed release(DR/EC) 60 mg PO BID 15 Days Qty: 30 0RF Discontinued quetiapine 25 mg tablet 25 mg PO BID Patient Comments: Patient stated she takes prn. She stated her prescriber is aware. quetiapine 25 mg tablet 50 mg PO BEDTIME Rx Instructions: 2 tabs at HS. duloxetine 30 mg capsule,delayed release(DR/EC) 30 mg PO DAILY No Action ondansetron HCl 8 mg tablet 1 tab PO TID PRN (Reason: nausea/vomiting) albuterol sulfate 90 mcg/actuation HFA aerosol inhaler 2 puff PO Q6H PRN (Reason: wheezing) loperamide 2 mg capsule 2 mg PO Q4H PRN (Reason: diarrhea) multivitamin Tablet 1 tab PO DAILY cetirizine 10 mg tablet 10 mg PO DAILY sumatriptan succinate 100 mg tablet 100 mg PO DAILY PRN (Reason: Migraine Headache) oxycodone 15 mg tablet 15 mg PO 5XD Patient Comments: Patient stated takes prn. bumetanide 0.5 mg tablet 0.5 mg PO BID omeprazole 20 mg capsule,delayed release(DR/EC) 20 mg PO DAILY epinephrine 0.3 mg/0.3 mL auto-injector 0.3 mg IM ONCE levetiracetam 1,000 mg tablet 1,000 mg PO BID Stand Alone Forms: Patient Portal Discharge page
--- NOTE | 2023-05-13 09:43 | HO.PHP ---
Late entry: [facility] staff member followed up with Liana if she completed the [employer] paperwork for her to fax for OP therapy and med provider. Liana disclosed that she forgot it at home and will bring it in tomorrow. [facility] staff member was receptive.
--- NOTE | 2023-05-13 09:55 | PC.NURSE ---
Addendum entered by Melissa Fernandes RN 05/13/23 10:03: Kirk also stated his mother was incontinent of urine. Kirk stated he is quadriplegic. Original Note: Liana did not show up to the program this morning. I called Liana and her son Jeronimo answered the phone who stated he was going to call us. He stated his mother had another seizure last night. He stated his mother is, wiped out and not coherent and usually presents this way after a seizure. He stated his MANUFACTURING TEAM MEMBER Jina is also there and she moved his mother to the living room couch and are going to call an ambulance. I spoke to Meliza and she also stated Liana's current presentation is not unusual after a seizure. They report she is breathing. Dr Briones also present during the conversation. I told Kirk to keep us posted. Kirk called back and asked who his mother uses for a VNA as he wanted to give the ambulance drivers a list of her medications. I told him I think it is [facility]. He stated she has a new medication however he stated she did not start the new medication yet (Zyprexa). I have a release of information to speak to Jeronimo and started to give him a list written down by his MANUFACTURING TEAM MEMBER however the ambulance showed up to the home and I spoke to the lease purchase truck driver and provided him with a medication list. team otr truck driver stated that she has a pulse and is breathing and they will be transporting her to the hospital.
--- NOTE | 2023-05-16 09:25 | PC.NURSE ---
Liana stated she was admitted to the ICU over the weekend. She stated she was dx with Psychogenic Seizures and dehydration. She stated she was not coherent. She stated she has multiple tests scheduled for May 27, 2023 and has a f/u appointment with Dr Araujo in a week. BP 106/73 P 71. Requested she bring in a copy of her discharge paperwork from the hospital. Dr Briones is aware.
[2023-05-16 09:33] VITALS: BP 106/73; PULSE 71
--- NOTE | 2023-05-16 13:17 | HO.PHPPROGNO ---
Subjective Subjective Date of Service: 05/16/23 Reason For Visit: anxiety,depression,PTSD Diagnostics Vital Signs (24Hr): Vital Signs - 24 hr 05/16/23 09:33 Pulse Rate 71 Blood Pressure 106/73 BMI result Body Mass Index 23.0 Assessment & Plan Certification I certify that partial hospital treatment is medically necessary due to the symptoms and problems resulting from the patient's mental illness and the failure to treat the patient at the partial hospital level of care would likely result in the patient requiring inpatient psychiatric care which could not be prevented at a less intensive level of care. Total time managing care of this patient today ____ minutes. Discharge Plan Discharge Attending provider: Beth Briones Medications: New olanzapine 5 mg tablet See Rx Instructions .ROUTE .COMPLEX Qty: 30 0RF Rx Instructions: 5 mg orally ; take 1 tablet po qHS; 1/2 tablet po BID PRN agitation Changed clonazepam 0.5 mg tablet 0.5 mg PO TID PRN (Reason: anxiety) 10 Days Qty: 30 0RF duloxetine 60 mg capsule,delayed release(DR/EC) 60 mg PO BID 15 Days Qty: 30 0RF Discontinued quetiapine 25 mg tablet 25 mg PO BID Patient Comments: Patient stated she takes prn. She stated her prescriber is aware. quetiapine 25 mg tablet 50 mg PO BEDTIME Rx Instructions: 2 tabs at HS. duloxetine 30 mg capsule,delayed release(DR/EC) 30 mg PO DAILY No Action ondansetron HCl 8 mg tablet 1 tab PO TID PRN (Reason: nausea/vomiting) albuterol sulfate 90 mcg/actuation HFA aerosol inhaler 2 puff PO Q6H PRN (Reason: wheezing) loperamide 2 mg capsule 2 mg PO Q4H PRN (Reason: diarrhea) multivitamin Tablet 1 tab PO DAILY cetirizine 10 mg tablet 10 mg PO DAILY sumatriptan succinate 100 mg tablet 100 mg PO DAILY PRN (Reason: Migraine Headache) oxycodone 15 mg tablet 15 mg PO 5XD Patient Comments: Patient stated takes prn. bumetanide 0.5 mg tablet 0.5 mg PO BID omeprazole 20 mg capsule,delayed release(DR/EC) 20 mg PO DAILY epinephrine 0.3 mg/0.3 mL auto-injector 0.3 mg IM ONCE levetiracetam 1,000 mg tablet 1,000 mg PO BID Stand Alone Forms: Patient Portal Discharge page
--- NOTE | 2023-05-16 15:59 | HO.PHP ---
[facility] staff member faxed over the referral for OP therapy and a med provider appointment through [facility] for Liana. PHP staff member is awaiting on a scheduled intake date.
--- NOTE | 2023-05-16 17:47 | P.EN_ITS ---
Event Note Date of Service: 05/16/23 Event Note: Telephone check in with patient today as telemedicine visit not an option due to staffing availability. Jayda returned to the program today since having the latest seizure Tuesday morning. Was hospitalized over the weekend, admitted to ICU. 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 Today she is normotensive 106/73. P71. Jayda continues to experience acute PTSD symptoms, nightmares, high anxiety/hypervigilence, flashbacks. She recalls waking at 4am Tuesday from a nightmare, prior to seizure. She is aware PTSD likely causing pseudoseizures. She started on olanzapine last night, taking 1/2 tablet (=2.5 mg) in evening and repeating another 2.5 mg at bedtime as per our plan. She denies any adverse effects so far, she slept her usual 4 hours (same as she did on the 75 mg of Ser oquel). Did not feel sedated this AM so she took another 2.5 mg. She can not say for sure if it is helping with anxiety, but at least she notes not feeling sedated, and she says this is despite being very tired from being in the hospital. She notes also being sore all over from the fall and seizure. We also review fluid parameters and recommendations by med providers. She is still being held on the higher dose of diuretic until her swelling/fluid retention is reduced, and then dose will be returned. 2L water restriction is still in place, but is allowed to increase water intake so long as she is not having more swelling. She relays it is a difficult balance to strike between maintaining her blood pressure and not causes significant water retention/swelling with SIADH/ESRD. She denies restricting water for any other reason than medical, and although she says she has passive SI she says she would not intentionally mismanage her fluid intake. She states she is happy to be back at the program and is agreeable to increasing the olanzapine tonight to see if we can better manage anxiety and sleep. Plan to take 2.5 mg in evening and take 5 mg at bedtime. If she is not sedated in the morning, she can continue with 2.5 mg in Am prn anxiety/agitation. Will follow up tomorrow. Time Spent With Patient Time: Total time managing care of this patient today ____ minutes.
--- NOTE | 2023-05-17 08:30 | HO.PHP ---
[facility] staff member contacted [facility]'s insurance [employer] to explore an extension. [facility] staff member is awaiting a response.
--- NOTE | 2023-05-17 11:45 | HO.PHP ---
[facility] staff member met with Liana and explored if she would be okay with her disclosing the medical reasons as to why she missed services to her insurance company. Liana gave consent to give the insurance company details. Liana disclosed that she found out yesterday when she met with her nurse, that she may be taking medication wrong, which could have led to the seizures. Liana voiced that they did not find anything in her system that would have led to the cardiac issues so she is uncertain if medication played a role. [facility] staff explored if she was intentionally taking medication wrong. Liana disclosed that she was not and voiced that she has a VNA and her son provides her medication in a lock box. Liana voiced that she needs the medication list to be more clear around doses. [facility] staff was receptive. Liana expressed feeling anxious around not having a provider. [facility] staff contacted [employer] with Liana and left a message. [facility] staff member is awaiting a call back.
[2023-05-17 12:29] VITALS: BP 109/70; PULSE 66
--- NOTE | 2023-05-17 13:00 | HO.PHP ---
Liana informed the clinician that she received a phone call from [facility], in which they informed her it is a 4 to 6 week wait. Liana expressed concerns around how long the wait time is. [facility] staff member voiced that she can place a referral for medication to [facility] while she waits for an OP therapist through [facility]. Liana was receptive.
--- NOTE | 2023-05-17 14:15 | HO.PHP ---
[facility] staff received a VM from Francesca, through [employer]. [facility] staff returned Francesca's call, in which she provided an intake appointment through [facility] on May 24, 2023 at 2:30 PM. Francesca disclosed that it is at the [place] location and she be no longer then a month wait for the services since they prioritize hospital discharges. [facility] staff member was receptive. Francesca voiced that Liana cannot be in the partial program for that appointment and would need to be discharged. [facility] staff member was receptive and voiced she will relay to Liana.
--- NOTE | 2023-05-17 14:30 | HO.PHP ---
[facility] staff member informed Liana of her conversation with [facility] since she was anxious about the appointment. Liana was receptive and voiced that she is okay with discharging from [facility] on May 23, 2023 so she can attend this appointment. [facility] staff member was receptive. Liana disclosed she is going to contact [facility] for transportation to that appointment and follow up with her insurance to drop [employer] from her medicare plan. [facility] staff was receptive.
--- NOTE | 2023-05-17 14:40 | HO.PHPPROGNO ---
Subjective Subjective Date of Service: 05/17/23 Reason For Visit: anxiety,depression,PTSD Interim History: Patient seen for follow up. She reports being pleased that she was able to sleep over 5 hours, deeply. DId not get woken by nightmares, felt refreshed upon waking. Was able to tolerate taking another 2.5 mg this morning, and feels the additoin 2.5 mg in the evneing (as it is getting dark) is helpful in managing some of the anxiety/hypervigilence/flashbacks associated with nighttime. She reports mood is better but currently is worried about getting discharged because she does not have any current treaters and could be a number of weeks before she sees a therapist and psych provider. She says her PCP is not comfortable managing psych meds. She also said her visiting nurse noted she has limited prn clonazepam, although she has just started into the 14 day bottle I sent last week. She has been tolerating 2.5 mg olanzapine during the day and hopefully this will better manage the anxiety, and cut down on need for the clonazepam. We agree she can bump up the HS dose of olanzapine to 7.5 to see if there's room to improve sleep and symptoms, will dose to allow for flexibility of HS dose. Will continue 2.5 mg BID (AM and 1800). Denies any thoughts of harming self, denies SI. Medication Compliance: Yes Side effects from medications: No Mental Status Exam Mental Status Exam Narrative: Patient alert and oriented. In no acute distress. Patient Appearance: Well groomed, adentulous Level of Consciousness: Awake and Alert Patient Behavior: Appropriate, Cooperative and Good Eye Contact Mood Description: Anxious Affect Description: Full range, reactive, without tearfulness or lability, congruent Patient Cognition Impaired: No Ability to Follow Directions: Excellent Speech Pattern: Spontaneous Speech Memory Description: Intact Hallucinations: None Delusions: Not Present Thought Process: linear, coherent Thought Content: future-oriented, relevant to stressors, No h/h/SI Judgment: fair but adequate Insight: intact Diagnostics Vital Signs (24Hr): Vital Signs - 24 hr 05/17/23 12:29 Pulse Rate 66 Blood Pressure 109/70 BMI result Body Mass Index 23.0 Assessment & Plan Assessment & Plan (1) Complex posttraumatic stress disorder: Status: Acute Code(s): F43.10 - Post-traumatic stress disorder, unspecified (2) Major depressive disorder in partial remission: Qualifiers: Major depression recurrence: recurrent Qualified Code(s): F33.41 - Major depressive disorder, recurrent, in partial remission Status: Acute Code(s): F32.4 - Major depressive disorder, single episode, in partial remission Plan continue in PHP increase olanzapine to flex 5-7.5 mg qHS as directed continue olanzapine 2.5 mg BID prn (in AM and 1700) incr duloxetine to 60 mg BID (pt hasnt been able to access 120 mg dose until new rx written for visiting rn, has been at 90 mg/d) continue other medications Patient educated on: diagnosis and medication risk/benefits Informed Consent: understands Reason for contiued partial hosp. stay Substantial Risk for: med/psych decompensation Certification I certify that partial hospital treatment is medically necessary due to the symptoms and problems resulting from the patient's mental illness and the failure to treat the patient at the partial hospital level of care would likely result in the patient requiring inpatient psychiatric care which could not be prevented at a less intensive level of care. Total time managing care of this patient today _30___ minutes. Discharge Plan Discharge Attending provider: Beth Briones Medications: New olanzapine 2.5 mg tablet 2.5 mg PO BID PRN (Reason: anxiety, agitation) 14 Days Qty: 28 0RF Changed clonazepam 0.5 mg tablet 0.5 mg PO TID PRN (Reason: anxiety) 10 Days Qty: 30 0RF olanzapine 5 mg tablet 5 - 7.5 mg PO BEDTIME 14 Days Qty: 21 0RF Rx Instructions: as directed duloxetine 60 mg capsule,delayed release(DR/EC) 60 mg PO BID 15 Days Qty: 30 0RF Discontinued quetiapine 25 mg tablet 25 mg PO BID Patient Comments: Patient stated she takes prn. She stated her prescriber is aware. quetiapine 25 mg tablet 50 mg PO BEDTIME Rx Instructions: 2 tabs at HS. duloxetine 30 mg capsule,delayed release(DR/EC) 30 mg PO DAILY No Action ondansetron HCl 8 mg tablet 1 tab PO TID PRN (Reason: nausea/vomiting) albuterol sulfate 90 mcg/actuation HFA aerosol inhaler 2 puff PO Q6H PRN (Reason: wheezing) loperamide 2 mg capsule 2 mg PO Q4H PRN (Reason: diarrhea) multivitamin Tablet 1 tab PO DAILY cetirizine 10 mg tablet 10 mg PO DAILY sumatriptan succinate 100 mg tablet 100 mg PO DAILY PRN (Reason: Migraine Headache) oxycodone 15 mg tablet 15 mg PO 5XD Patient Comments: Patient stated takes prn. bumetanide 0.5 mg tablet 0.5 mg PO BID omeprazole 20 mg capsule,delayed release(DR/EC) 20 mg PO DAILY epinephrine 0.3 mg/0.3 mL auto-injector 0.3 mg IM ONCE levetiracetam 1,000 mg tablet 1,000 mg PO BID Stand Alone Forms: Patient Portal Discharge page
--- NOTE | 2023-05-18 12:45 | HO.PHP ---
[facility] staff member met with Liana to explore if she is comfortable with a male completing the intake assessment for her. Liana disclosed that she is not comfortable with talking about the trauma with him but is open to reviewing the family dynamics and the basic information. [facility] staff assessed if Liana would be okay with her providing the intake assessment from here so they can review the trauma. Liana disclosed that she is okay with that, just is not comfortable with discussing with a male due to that being a trigger. [facility] staff was receptive.
--- NOTE | 2023-05-18 13:15 | HO.PHP ---
[facility] staff contacted Francesca from [employer] asking if there was a female to complete the intake, Francesca mentioned that they only have a male who completes the hospital discharage intakes. PHP staff explored if she could fax over our assessment so he can review Liana's trauma history since she is not comfortable discussing with a male. Francesca disclosed that she understands and encouraged the PHP staff member to contact the main line and speak to the individual completing the intake. [facility] staff member was receptive. [facility] staff member contacted the main line but was unable to get through. A message was left. [facility] staff member is awaiting a call back.
--- NOTE | 2023-05-19 13:32 | HO.PHP ---
PHP staff met with Liana after group three due to her expressing concerns around family dynamics. Liana expressed that her brother and sister law did not notify her that they were coming to her home today. Liana was emotional around feeling like she was not being respected due to them not communicating this to her after 5 months of not speaking to one another. PHP staff member explored if Liana spoke about this in the first group. Liana disclosed that she did a little but needed to further process, not within a group setting. [facility] staff was receptive and actively listened to Liana. [facility] staff member provided support and empathized with Liana. PHP staff voiced if she is not ready to engage in a conversation due to not being in the right head space, to inform them that if they try. Liana was receptive. Liana talked about her past mistakes and trauma. Liana disclosed that she has the support of her mother and son. Liana stated if her brother and sister in law are at her home, she is going to take space and remove herself from the situation by going to her room.Liana voiced she will be able to have a conversation such as how are you but if they push for information on what she is doing for treatment, she does not want to do that. PHP staff was receptive and expressed that it is okay to set boundaries if she is not ready. Liana was in agreement. PHP staff explored safety. Liana voiced that she has SI without a plan or intent. Liana voiced that she will be safe and process in group tomorrow what the outcome was. PHP staff was receptive.
[2023-05-20 10:30] VITALS: BP 106/70; PULSE 65
--- NOTE | 2023-05-20 22:13 | P.PNPSP_ITS ---
Subjective Subjective Date of Service: 05/20/23 Reason For Visit: anxiety,depression,PTSD Interim History: Jayda reports improvements in sleep with olanzapine (she consolidated evening and HS doses =7.5 mg at bedtime). Slept a solid 5+ hours and says she is feeling better and rested . Continues with 2.5 mg dose olanzapine in the AM and feels her anxiety and PTSD symptoms are much more manageable. She is also alotted an additional 2.5 mg PRN for agitaiton, sleep. She would like to continue at these doses for now without change, and will see if she needs to utilize any prn dosing over the weekend before sending refills prior to discharge next week. She denies any suicidal ideation. Feeling more hopeful now with feeling she is better able to function and tolerate stressors with PTSD sx better managed. Remains normotensive, still complaining of LLE swelling, WIll be following up with providers next week. She denies any acute issues or concerns. Medication Compliance: Yes Side effects from medications: No Attending Groups: Yes Review of Systems Acute medical concerns: No Mental Status Exam Mental Status Exam Narrative: Patient alert and oriented. In no acute distress. Patient Appearance: Well groomed, adentulous Level of Consciousness: Awake and Alert Patient Behavior: Appropriate, Cooperative and Good Eye Contact Mood Description: Better , Less anxious, less depressed Affect Description: Full range, reactive, without tearfulness or lability, congruent Patient Cognition Impaired: No Ability to Follow Directions: Excellent Speech Pattern: Spontaneous Speech Memory Description: Intact Hallucinations: None Delusions: Not Present Thought Process: linear, coherent Thought Content: future-oriented, relevant to stressors, No h/h/SI Judgment: fair but adequate Insight: intact Diagnostics Vital Signs (24Hr): Vital Signs - 24 hr 05/20/23 10:30 Pulse Rate 65 Blood Pressure 106/70 BMI result Body Mass Index 23.0 Assessment & Plan Assessment & Plan (1) Complex posttraumatic stress disorder: Status: Acute Code(s): F43.10 - Post-traumatic stress disorder, unspecified (2) Major depressive disorder, recurrent severe without psychotic features: Status: Acute Code(s): F33.2 - Major depressive disorder, recurrent severe without psychotic features Plan continue Zyprexa at 7.5 mg at bedtime continue Zyprexa 2.5 mg qAM prn continue continue other regular medications continue in PHP Patient educated on: diagnosis, medication risk/benefits and substance abuse Informed Consent: understands Reason for contiued partial hosp. stay Substantial Risk for: rapid decompensation and med/psych decompensation Certification I certify that partial hospital treatment is medically necessary due to the symptoms and problems resulting from the patient's mental illness and the f ailure to treat the patient at the partial hospital level of care would likely result in the patient requiring inpatient psychiatric care which could not be prevented at a less intensive level of care. Total time managing care of this patient today __30__ minutes. Discharge Plan Discharge Attending provider: Beth Briones Medications: New olanzapine 2.5 mg tablet 2.5 mg PO BID PRN (Reason: anxiety, agitation) 14 Days Qty: 28 0RF Changed clonazepam 0.5 mg tablet 0.5 mg PO TID PRN (Reason: anxiety) 10 Days Qty: 30 0RF olanzapine 5 mg tablet 5 - 7.5 mg PO BEDTIME 14 Days Qty: 21 0RF Rx Instructions: as directed duloxetine 60 mg capsule,delayed release(DR/EC) 60 mg PO BID 15 Days Qty: 30 0RF Discontinued quetiapine 25 mg tablet 25 mg PO BID Patient Comments: Patient stated she takes prn. She stated her prescriber is aware. quetiapine 25 mg tablet 50 mg PO BEDTIME Rx Instructions: 2 tabs at HS. duloxetine 30 mg capsule,delayed release(DR/EC) 30 mg PO DAILY No Action ondansetron HCl 8 mg tablet 1 tab PO TID PRN (Reason: nausea/vomiting) albuterol sulfate 90 mcg/actuation HFA aerosol inhaler 2 puff PO Q6H PRN (Reason: wheezing) loperamide 2 mg capsule 2 mg PO Q4H PRN (Reason: diarrhea) multivitamin Tablet 1 tab PO DAILY cetirizine 10 mg tablet 10 mg PO DAILY sumatriptan succinate 100 mg tablet 100 mg PO DAILY PRN (Reason: Migraine Headache) oxycodone 15 mg tablet 15 mg PO 5XD Patient Comments: Patient stated takes prn. bumetanide 0.5 mg tablet 0.5 mg PO BID omeprazole 20 mg capsule,delayed release(DR/EC) 20 mg PO DAILY epinephrine 0.3 mg/0.3 mL auto-injector 0.3 mg IM ONCE levetiracetam 1,000 mg tablet 1,000 mg PO BID Stand Alone Forms: Patient Portal Discharge page
--- NOTE | 2023-05-23 09:46 | P.PNPSP_ITS ---
Subjective Subjective Date of Service: 05/23/23 Reason For Visit: anxiety,depression,PTSD Interim History: This is is a follow-up visit with Terrie. She is being discharged today. She states that the program was quite helpful to her, giving her some new tools and insight. She has tolerated switching off the Seroquel and onto Zyprexa. She reports benefitting from the Zyprexa in terms of mood, anxiety and sleep and is satisfied with medication changes. She denies any adverse effects. She has been getting a solid 5 hours of continuous, undisrupted sleep, with additional hours outside of this. She appears brighter, more energetic and feels more optimistic about managing the road ahead of her. She is currently in the process of being set up with a new therapist and psych provider through [facility]. She currently has [facility] at her home q other day whokeep her medications in a lock box aside from the 2 days of meds given at a time. She is feeling stable. Denies any hopelessness or SI. She is needing refills on most of her medications this month, as it is expected she will not be scheduled to see a new provider until next month. She can call back once she gets her appointment date if she will be needing further refill beyond the 30 days sent today. Medication Compliance: Yes Side effects from medications: No Attending Groups: Yes Review of Systems Acute medical concerns: No Mental Status Exam Mental Status Exam Narrative: Patient alert and oriented. In no acute distress. Patient Appearance: Well groomed, adentulous Level of Consciousness: Awake and Alert Patient Behavior: Appropriate, Cooperative and Good Eye Contact Mood Description: Better , Less anxious, less depressed Affect Description: Full range, reactive, without tearfulness or lability, congruent Patient Cognition Impaired: No Ability to Follow Directions: Excellent Speech Pattern: Spontaneous Speech Memory Description: Intact Hallucinations: None Delusions: Not Present Thought Process: linear, coherent Thought Content: future-oriented, relevant to stressors, No h/h/SI Judgment: fair but adequate Insight: intact Diagnostics Vital Signs (24Hr): BMI result Body Mass Index 23.0 Assessment & Plan Assessment & Plan (1) Complex posttraumatic stress disorder: Status: Acute Code(s): F43.10 - Post-traumatic stress disorder, unspecified (2) Major depressive disorder, recurrent severe without psychotic features: Status: Acute Code(s): F33.2 - Major depressive disorder, recurrent severe without psychotic features Plan [facility] from [facility] Continue olanzapine 2.5 mg qAM Continue olanzapine 2.5 mg qd in afternoon Continue olanzapine 7.5 mg qHS May take an additional 2.5 mg dose PRN agitation, sleep continue other regular medications will defer further medication management to new OP provider Patient educated on: diagnosis and medication risk/benefits Informed Consent: understands Reason for contiued partial hosp. stay Substantial Risk for: stable for discharge Certification I certify that partial hospital treatment is medically necessary due to the symptoms and problems resulting from the patient's mental illness and the failure to treat the patient at the partial hospital level of care would likely result in the patient requiring inpatient psychiatric care which could not be prevented at a less intensive level of care. Total time managing care of this patient today __30__ minutes. Discharge Plan Discharge Attending provider: Beth Briones Medications: Continued ondansetron HCl 8 mg tablet 1 tab PO TID PRN (Reason: nausea/vomiting) albuterol sulfate 90 mcg/actuation HFA aerosol inhaler 2 puff PO Q6H PRN (Reason: wheezing) loperamide 2 mg capsule 2 mg PO Q4H PRN (Reason: diarrhea) multivitamin Tablet 1 tab PO DAILY cetirizine 10 mg tablet 10 mg PO DAILY sumatriptan succinate 100 mg tablet 100 mg PO DAILY PRN (Reason: Migraine Headache) oxycodone 15 mg tablet 15 mg PO 5XD Patient Comments: Patient stated takes prn. omeprazole 20 mg capsule,delayed release(DR/EC) 20 mg PO DAILY epinephrine 0.3 mg/0.3 mL auto-injector 0.3 mg IM ONCE levetiracetam 1,000 mg tablet 1,000 mg PO BID Changed olanzapine 5 mg tablet 7.5 - 10 mg PO BEDTIME 30 Days Qty: 60 0RF Rx Instructions: take 1.5 tablet po qHS; take 1/2 tablet po qd PRN agitation, sleep olanzapine 2.5 mg tablet 2.5 mg PO BID 30 Days Qty: 60 0RF Rx Instructions: take 1 tablet po daily in AM and 1 tablet po daily in afternoon - hold for sedation Discontinued quetiapine 25 mg tablet 25 mg PO BID Patient Comments: Patient stated she takes prn. She stated her prescriber is aware. quetiapine 25 mg tablet 50 mg PO BEDTIME Rx Instructions: 2 tabs at HS. duloxetine 30 mg capsule,delayed release(DR/EC) 30 mg PO DAILY duloxetine 60 mg capsule,delayed release(DR/EC) 60 mg PO DAILY clonazepam 0.5 mg tablet 0.5 mg PO BID PRN (Reason: anxiety) No Action bumetanide 0.5 mg tablet 0.5 mg PO BID 30 Days Qty: 60 5RF clonazepam 0.5 mg tablet 0.5 mg PO BID PRN (Reason: anxiety) duloxetine 60 mg capsule,delayed release(DR/EC) 60 mg PO BID midodrine 2.5 mg tablet 2.5 mg PO BID 30 Days Qty: 60 3RF Rx Instructions: do not give last dose of day after 6PM or within 4 hrs of bedtime bumetanide 0.5 mg tablet 0.5 mg PO BID 30 Days Qty: 60 3RF Stand Alone Forms: Patient Portal Discharge page Patient Education: Post Traumatic Stress Disorder (DC)
--- NOTE | 2023-05-23 16:01 | HO.PHP ---
PHP staff member reached out to Francesca from [facility] to inform her that she never received a call back from [facility]. [facility] staff member voiced that Liana discharged from the program today and was hoping to speak with him. [facility] staff is awaiting a call back from Francesca since this was left in a VM.
--- NOTE | 2023-06-10 14:08 | PC.NURSE ---
Liana called and stated she has an appointment with a new prescriber Dr. Benítez from [facility] on June 21, 2023 and is going to run out of Zyprexa 7.5 mg QHS and 2.5 mg BID and Cymbalta 60 mg BID on Tuesday. She asked if Dr. Briones could fill the medications until her appointment. She stated she is doing well however feeling stressed as she does not want to run out of these medications. I will review with Dr. Briones for refills.
== END 2023-05-23 23:59 | disposition home or self-care (01) ==
LOC: HO.PHPA 11:45
PROVIDERS: Visit Provider Psychiatry & Neurology Psychiatry
DX: F43.10 Post-traumatic stress disorder, unspecified (principal); F32.4 Major depressive disorder, single episode, in partial remission; Z79.899 Other long term (current) drug therapy
CPT/HCPCS: 90791; 90853

== ENCOUNTER 2023-06-01 09:46 | Outpatient (AMB) | payer MEDICARE, MEDICAID, SELFPAY ==
--- NOTE | 2023-06-01 09:49 | HO.NEPHOV ---
HPI HPI Comments History of Present Illness Details I had the privilege of seeing Jayda for her chronic kidney disease. Her seizures are better controlled . She had been having significant pedal edema forcing her to take high-dose Bumex with resultant improvement. At that time her serum creatinine has gone up. She has reduced her Bumex dose to 0.5 mg twice daily. Her breast cancer is closely monitored by [facility]. She is not on any new medications. She denies any chest pain, shortness of breath, nausea, vomiting, diarrhea, weight gain, orthopnea or paroxysmal nocturnal dyspnea. She is not taking any nonsteroidal anti-inflammatory medications. She has been having orthostatic symptoms. She has history of atrial fibrillation which has been under control. [facility] Medical History (Updated 06/03/23 @ 20:13 by Marbin Dowd MD) Seizure disorder History of prolonged Q-T interval on ECG Psychogenic nonepileptic seizure CKD (chronic kidney disease) stage 3, GFR 30-59 ml/min COPD (chronic obstructive pulmonary disease) GERD (gastroesophageal reflux disease) Port-A-Cath in place Malabsorption Compression fracture of C3 vertebra Self-catheterizes urinary bladder Neuropathy SIADH (syndrome of inappropriate ADH production) Chronic anemia Enlarged liver Enlarged heart History of atrial fibrillation Polysubstance abuse Von Willebrand disease Factor V deficiency Depression Uterine cancer Breast cancer Migraines Asthma Seizure Surgical History H/O knee surgery Hx of cholecystectomy History of hysterectomy H/O gastric bypass Household Members: Children Alcohol intake: unknown Patient Tobacco Use Status: Current someday Tobacco user Tobacco use type: Cigarette Vital Signs 06/01/23 09:52 Height 5 ft 3 in Weight 145 lb 2 oz BMI 25.7 BP 110/80 Blood Pressure Location Rt brachial Position Sitting Physical Exam Vital Signs: Last Vital Signs BP 110/80 06/01/23 09:52 BMI result Body Mass Index 25.7 Const General: comfortable and no acute distress Orientation/consciousness: patient oriented x3 HEENT Head: Yes normocephalic Mouth: Normal oral and palatal mucosa present Eyes EOM: EOMs intact bilaterally Neck Neck: Yes supple Resp Auscultation: clear to auscultation bilaterally Cardio Jugular venous distension: no JVD Rate: regular rate GI Palpation (GI): Soft to palpation Auscultation: normal bowel sounds General: Yes no CVA tenderness Back/Spine/Pelvis Back: no CVA tenderness Skin General skin exam: no rashes or lesions noted Neuro General: patient oriented x3 and moves all extremities Assessment & Plan Assessment & Plan (1) CKD (chronic kidney disease) stage 3, GFR 30-59 ml/min: Code(s): N18.30 - Chronic kidney disease, stage 3 unspecified Qualifiers: Chronic kidney disease stage 3 subtype: stage 3a (GFR 45-59) Qualified Code(s): N18.31 - Chronic kidney disease, stage 3a (2) Orthostatic hypotension: Code(s): I95.1 - Orthostatic hypotension Plan Jayda has a chronic kidney disease but recently had ROBEL following excessive diuresis. Her serum creatinine had gone up at that time. Her volume status got optimized and her dose of Bumex has been reduced to 0.5 mg twice daily. She is not consuming excess salt. She has been having orthostatic symptoms. I asked her not to take excessive diuretics. I started her on midodrine 2.5 mg twice daily. She is avoiding nonsteroidal anti-inflammatory medications. She should maintain good hydration. I asked her to repeat blood work soon. She will be seen in office in follow-up in a few weeks. Time spent for patient encounter, retrieval of data and documentation 29 minutes. Orders: Orders Electrolytes 06/01/23 I95.1 - Orthostatic hypotension, N18.30 - Chronic kidney disease, stage 3 unspecified Creatinine 06/01/23 I95.1 - Orthostatic hypotension, N18.30 - Chronic kidney disease, stage 3 unspecified Blood Urea Nitrogen 06/01/23 I95.1 - Orthostatic hypotension, N18.30 - Chronic kidney disease, stage 3 unspecified Calcium 06/01/23 I95.1 - Orthostatic hypotension, N18.30 - Chronic kidney disease, stage 3 unspecified Cortisol Random 06/01/23 I95.1 - Orthostatic hypotension, N18.30 - Chronic kidney disease, stage 3 unspecified Medications: New midodrine do not give last dose of day after 6PM or within 4 hrs of bedtime 2.5 mg PO BID 30 days 60 tabs 3RF bumetanide 0.5 mg PO BID 30 days 60 tabs 3RF Coding Level of Care Code Est Pt Level 4 (88954) Diagnoses Stage 3a chronic kidney disease N18.31 Chronic kidney disease stage 3 subtype: stage 3a (GFR 45-59) Orthostatic hypotension I95.1
[2023-06-01 09:52] VITALS: BP 110/80; BMI 25.7
== END 2023-06-01 10:31 | disposition home or self-care (01) ==
PROVIDERS: PCP Family Medicine; Visit Provider Internal Medicine Nephrology
DX: N18.31 Chronic kidney disease, stage 3a (principal); I95.1 Orthostatic hypotension
CPT/HCPCS: 99214

== ENCOUNTER → 2023-06-01 09:46 | Outpatient (BNVA) | payer MEDICARE, MEDICAID, SELFPAY | PROVIDERS: PCP Family Medicine; Visit Provider Internal Medicine Nephrology | DX: I95.1 Orthostatic hypotension (principal); N18.31 Chronic kidney disease, stage 3a | CPT/HCPCS: 99212 ==

== ENCOUNTER 2023-06-06 08:55 | Outpatient (REF) | payer MEDICARE, MEDICAID, SELFPAY | END 2023-06-06 08:56 | disposition home or self-care (01) | LOC: HO.LAB 08:55 | PROVIDERS: PCP Family Medicine; Visit Provider Internal Medicine Nephrology | DX: Z13.89 Encounter for screening for other disorder (principal) ==

== ENCOUNTER 2023-07-01 15:28 | Emergency (ER) | payer MEDICARE, MEDICAID, SELFPAY ==
--- NOTE | ~2023-07-01 | XR_ITS ---
EXAMINATION: XR CHEST CLINICAL INFORMATION: Altered mental status COMPARISON: Chest x-ray January 29, 2021 TECHNIQUE: Frontal portable view of the chest was obtained. 1710 hours FINDINGS: Central port catheter tip in superior vena cava at the cavoatrial junction. No change position since prior study January 29, 2021. Lungs normally aerated. No pulmonary vascular congestion. No pleural effusion or pneumothorax. The heart size is normal. Cardiac mediastinal contours are normal XR/XR chest 1V IMPRESSION: No acute abnormality of chest.
--- NOTE | ~2023-07-01 | CT_ITS ---
CT HEAD WITHOUT CONTRAST CLINICAL INFORMATION: Headache. COMPARISON: CT head 12/30/2020. TECHNIQUE: Contiguous axial imaging was performed from the skull base to vertex without intravenous administration of contrast. This CT examination was performed using dose optimization techniques as appropriate, variously including the following: *Automated exposure control *Adjustment of mA and/or kV according to patient size (this includes techniques or standardized protocols for targeted exams where dose is matched to indication/reason for exam; i.e. extremities or head) *Use of iterative reconstruction technique FINDINGS: No definite acute intracranial findings with assessment limited by motion despite repeating the head CT. There is no intracranial hemorrhage, hydrocephalus, extra-axial surface collection, midline shift, or other herniation pattern. Trejo to white matter differentiation is diffusely maintained without evidence of an evolved acute territorial infarct. The basilar cisterns are preserved. No significant soft tissue abnormality. No acute osseous abnormality. The paranasal sinuses and the mastoid air cells are well aerated. CT/CT head/brain wo IV con IMPRESSION: No definite acute intracranial findings with assessment limited by motion despite repeating the head CT.
--- NOTE | ~2023-07-01 | CT_ITS ---
EXAMINATION: CT ABDOMEN AND PELVIS WITHOUT CONTRAST CLINICAL INFORMATION: Right lower quadrant pain COMPARISON: None available. TECHNIQUE: Multidetector volumetric imaging was performed from the superior aspect of the liver through the pubic symphysis. Sagittal and coronal reformatted images were obtained on the technologist's workstation. This CT examination was performed using dose optimization techniques as appropriate, variously including the following: *Automated exposure control *Adjustment of mA and/or kV according to patient size (this includes techniques or standardized protocols for targeted exams where dose is matched to indication/reason for exam; i.e. extremities or head) *Use of iterative reconstruction technique DLP: 560 mGy-cm FINDINGS: LUNG BASES: The visualized lung bases are unremarkable. LIVER, GALLBLADDER, AND BILIARY TREE: The liver is normal in size, shape, and attenuation. No focal hepatic lesion or biliary ductal dilatation is present. The gallbladder has been surgically removed. PANCREAS: Unremarkable. SPLEEN: Unremarkable. ADRENAL GLANDS: Unremarkable. KIDNEYS AND URETERS: The kidneys are normal in size, shape, and attenuation. There is a 2 mm radiopaque stone upper pole left kidney. No additional radiopaque calculi are hydronephrosis. No perinephric stranding. BLADDER: Unremarkable. GASTROINTESTINAL TRACT: There is scattered stool and gas seen throughout the colon without distention. The small bowel loops are normal caliber. There are likely gastric bypass surgical changes in the left epigastric region There is nonsegmental mild mural thickening of rectal wall. The perirectal soft tissues are normal. Appendix is not visualized. No inflammatory process seen in either. ABDOMINAL WALL: No significant hernia is appreciated. LYMPH NODES: Normal. VASCULAR: Abdominal aorta is normal caliber. No aneurysmal dilatation seen. PELVIC VISCERA: There is no free air or free fluid. Scattered stool is seen in the redundant sigmoid colon. OSSEOUS STRUCTURES: No aggressive lytic or sclerotic process seen. Grade 1 anterolisthesis L4-L5 is noted. CT/CT abdomen pelvis wo IV con IMPRESSION: 1. No acute intra-abdominal process seen. 2. Nonobstructive 2 mm radiopaque stone upper pole left kidney. 3. Mild constipation. Fleischner guidelines were followed.
[2023-07-01 15:22] VITALS: BP 00/00; PULSE 70; RESP 16; TEMP 36.9; O2SAT 95; BMI 21.6
[2023-07-01 15:55] VITALS: BP 105/88; PULSE 78
[2023-07-01 16:05] LABS: Glucose, Whole Blood 69 mg/dL (60-115)
--- NOTE | 2023-07-01 16:08 | ECG_ITS ---
Test Reason : AMS Blood Pressure : / mmHG Vent. Rate : 086 BPM Atrial Rate : 086 BPM P-R Int : 144 ms QRS Dur : 076 ms QT Int : 394 ms P-R-T Axes : 081 -42 042 degrees QTc Int : 471 ms Normal sinus rhythm Possible Left atrial enlargement Left axis deviation Low voltage QRS Inferior infarct , age undetermined Abnormal ECG When compared with ECG of 29-JAN-2021 21:49, No significant change was found Referred By: Berta Unger Electronically Signed By:PAIGE EVANGELISTA MD
--- NOTE | 2023-07-01 16:08 | PC.NURSE ---
pt extremely figity having a hard time staying still on the stretcher, respirations even and unlabored, pt's pupil dilated at about 3mm and slow to respond to light, pt is answering questions to her best ability, pt is not sure what year it is where she is, pt is reporting having a headache, abd pain and diarrhea that started today, pt denies using any substance, denies taking extra medications, does not drink alcohol per pt. pt is not sure why she is acting like this, vs stable at this time, pt changed over and belongings secured
--- NOTE | 2023-07-01 16:11 | ED_ITS ---
HPI - General Adult General Chief complaint: Overdose Stated complaint: OD COMBATIVE AMS Time Seen by Provider: 07/01/23 16:03 Source: patient and RN notes reviewed Mode of arrival: ambulatory Limitations: no limitations History of Present Illness HPI narrative: This is a 58-year-old female, with a past medical history asthma, breast cancer, factor 5 deficiency, hypertension, migraines, poly substance abuse, seizure disorder, and von Willebrand's disease, presenting to the emergency department via EMS for altered mental status. Per EMS report patient was unresponsive and was assumed to be an overdose, was given Narcan by EMS and became responsive. EMS reports seizure-like activity during the call. Patient reports to the emergency room, unable to report why she is currently here. She is only able to report that she is having abdominal pain and a headache. She is alert and oriented x1 MD complaint: Altered mental status Relieving factors: none Exacerbating factors: none Treatments prior to arrival: none Related Data Home Medications Medication Instructions Recorded Confirmed albuterol sulfate 90 mcg/actuation 2 puff PO Q6H PRN wheezing 01/29/21 04/28/23 aerosol inhaler ondansetron HCl 8 mg tablet 1 tab PO TID PRN nausea/vomiting 01/29/21 04/28/23 cetirizine 10 mg tablet 10 mg PO DAILY 04/28/23 04/28/23 epinephrine 0.3 mg/0.3 mL 0.3 mg IM ONCE anaphylaxis 04/28/23 04/28/23 injection, auto-injector levetiracetam 1,000 mg tablet 1,000 mg PO BID 04/28/23 04/28/23 loperamide 2 mg capsule 2 mg PO Q4H PRN diarrhea 04/28/23 04/28/23 multivitamin 1 tab PO DAILY 04/28/23 04/28/23 omeprazole 20 mg capsule,delayed 20 mg PO DAILY 04/28/23 04/28/23 release oxycodone 15 mg tablet 15 mg PO 5XD 04/28/23 04/28/23 sumatriptan succinate 100 mg tablet 100 mg PO DAILY PRN Migraine 04/28/23 04/28/23 Headache clonazepam 0.5 mg tablet 0.5 mg PO BID PRN anxiety 06/01/23 Previous Rx's Medication Instructions Recorded bumetanide 0.5 mg tablet 0.5 mg PO BID 30 days #60 tabs 05/27/23 bumetanide 0.5 mg tablet 0.5 mg PO BID 30 days #60 tabs 06/01/23 midodrine 2.5 mg tablet 2.5 mg PO BID 30 days #60 tabs 06/01/23 duloxetine 60 mg capsule,delayed 60 mg PO BID #60 caps 06/10/23 release olanzapine 2.5 mg tablet 2.5 mg PO BID 30 days #60 tabs 06/10/23 olanzapine 5 mg tablet 7.5 - 10 mg (1.5 - 2 x 5 mg) PO 06/10/23 BEDTIME 30 days #60 tabs Allergies Allergy/AdvReac Type Severity Reaction Status Date / Time bee pollen [Bee Stings] Allergy Mild ANAPHYLAXIS Verified 06/01/23 09:54 codeine [Codeine] Allergy Mild ANAPHYLAXIS Verified 06/01/23 09:54 Penicillins Allergy Mild UNKNOWN Verified 06/01/23 09:54 aspirin [ASA] Allergy Unknown Verified 06/01/23 09:54 ciprofloxacin [From Cipro] Allergy Rash Verified 06/01/23 09:54 Iodinated Contrast Media Allergy Hives Verified 06/01/23 09:54 [Contrast Dye] latex Allergy Rash Verified 06/01/23 09:54 macadamia nut Allergy Anaphylaxis Verified 06/01/23 09:54 Sulfa (Sulfonamide Allergy Anaphylaxis Verified 06/01/23 09:54 Antibiotics) sulfamethoxazole Allergy Anaphylaxis Verified 06/01/23 09:54 [From Bactrim] trimethoprim [From Bactrim] Allergy Anaphylaxis Verified 06/01/23 09:54 bee stings Allergy Unknown anaphylaxis Uncoded 09/02/11 00:00 Codeine Phosphate Allergy Unknown stomach Uncoded 09/02/11 00:00 upset Penicillin Allergy Unknown anaphylaxis Uncoded 09/02/11 00:00 Review of Systems 2 Review of Systems: Yes all other systems are reviewed and are negative Constitutional: Constitutional: Reports as per HPI Neurologic: Reports confusion Psychiatric: Psychiatric: Reports confusion PMFSH Past Medical History Attestation statement: The following information was validated with the patient. Medical History Seizure disorder History of prolonged Q-T interval on ECG Psychogenic nonepileptic seizure CKD (chronic kidney disease) stage 3, GFR 30-59 ml/min COPD (chronic obstructive pulmonary disease) GERD (gastroesophageal reflux disease) Port-A-Cath in place Malabsorption Compression fracture of C3 vertebra Self-catheterizes urinary bladder Neuropathy SIADH (syndrome of inappropriate ADH production) Chronic anemia Enlarged liver Enlarged heart History of atrial fibrillation Polysubstance abuse Von Willebrand disease Factor V deficiency Depression Uterine cancer Breast cancer Migraines Asthma Seizure Surgical History H/O knee surgery Hx of cholecystectomy History of hysterectomy H/O gastric bypass Social History Social History Household Members: Children Alcohol intake: unknown Patient Tobacco Use Status: Current someday Tobacco user Tobacco use type: Cigarette Smoked in Last 30 Days: No Use of substances other than those prescribed or required for medical reasons: No Advance Directives: No Advance Directives Information Provided: No Patient : No Physical Exam ED Vital Signs: Vital Signs - 24 hr 07/01/23 15:22 07/01/23 15:55 07/01/23 18:21 Temperature 98.5 F 98.0 F Pulse Rate 70 78 87 Respiratory Rate 16 13 Blood Pressure 00/00 L 105/88 123/79 Pulse Oximetry 95 99 Oxygen Delivery Method Room Air Room Air 07/01/23 20:23 07/01/23 22:25 Temperature 98.2 F 97.6 F Pulse Rate 74 92 Respiratory Rate 12 14 Blood Pressure 111/73 131/91 H Pulse Oximetry 99 97 Oxygen Delivery Method Room Air Room Air BMI result Body Mass Index 21.6 Const General: comfortable and confusion Orientation/consciousness: confusion Limitations: no limitations [facility] Head: Yes normal to inspection, Yes normocephalic and Yes atraumatic Ears: hearing grossly normal bilaterally General nose exam: Normal external nose present Face and sinus: Yes normal facial exam Mouth: Normal oral and palatal mucosa present, oropharynx normal and moist mucous membranes Throat: Yes posterior oropharynx normal Eyes Other: Dilated pupils bilaterally, responsive and equal General: appearance normal, both eyes and all related structures Eyelids: Yes eyelids normal Conjunctivae: conjunctivae normal Sclerae: sclerae normal Pupils: Equal, round and reactive pupils present EOM: EOMs intact bilaterally Neck Neck: Yes normal visual inspection, Yes full ROM and Yes no lymphadenopathy Lymphatic: no lymphadenopathy noted Chest Chest palpation & inspection: normal inspection of the chest Resp Effort & Inspection: normal respiratory effort and able to speak in complete sentences Auscultation: clear to auscultation bilaterally, no crackles, no rales, no rhonchi and no wheezes Cardio Rate: regular rate Rhythm: regular rhythm Heart sounds: S1 normal heart sound present and S2 normal heart sound present GI Other: Abdomen is soft with diffuse tenderness throughout, with guarding. No rebound Inspection: Yes normal to inspection Skin General skin exam: no rashes or lesions noted Trauma: no lacerations or abrasions Wounds: no wounds Neuro General: moves all extremities and confusion Cranial nerves: Yes CN's II-XII intact bilaterally and Yes Equal, round and reactive pupils present Cognition (Neuro): normal cognition Gait exam (Neuro): Normal gait present Motor exam (neuro): 5/5 motor strength present throughout and Pronator motor function not present Coordination: [id number] test normal Romberg Test: Negative Extrem General: Yes normal to inspection Right upper extremity: normal to inspection Left upper extremity: normal to inspection Right lower extremity: normal to inspection Left lower extremity: normal to inspection Course Reevaluation(s) Reevaluation #1: CT head unremarkable. Patient has no leukocytosis, stable H&H, chemistry within normal limits, BUN elevated at 33, which appears to be at her baseline. Creatinine improved since her last visit. Patient was re-evaluated and she is currently alert and oriented x3. A believes that she had a seizure and was in a postictal state upon arrival. I do not suspect a drug overdose. Her urine came back positive for oxycodone and benzodiazepines, which she is currently prescribed. She denies, alcohol or drug use. She does have issues with word finding. She states that this is very consistent with her postictal state. She believes that she had a seizure. She is unable to report to me what happened today however patient is neurologically intact other than problems with word finding. Will continue to monitor. Time: 19:21 Reevaluation #2: Patient alert and oriented, does have trouble with word finding which she states last for several hours after having a seizure. I discussed this with my attending physician, Dr. Fernandes/ Patient only reporting headache, patient typically takes oxycodone 15 mg 3 times a day. This is confirmed by her prescription monitoring site. Will medicate with oxycodone 15 mg. Time: 21:25 Reevaluation #3: Patient ambulatory, word-finding difficulty has since resolved. Requesting to be discharged. She is eating, drinking, neurologically intact. Discussed workup with patient she understands agrees with plan. Patient stable for discharge. Medications Administered Discontinued Medications Generic Name Dose Route Start Last Admin Trade Name Jorge Alberto PRN Reason Stop Dose Admin Sodium Chloride 1,000 mls @ 999 mls/hr 07/01/23 19:36 07/01/23 22:35 Ns IV 07/01/23 20:36 Infused .Q1H1M ONE Infusion Oxycodone HCl 15 mg 07/01/23 21:25 07/01/23 22:20 Oxycodone Hcl Immed Release 15 Mg Tablet PO 07/01/23 21:26 15 mg ONCE ONE Administration Medical Decision Making Medical Decision Making MDM Narrative: 58-year-old female, with a past medical history asthma, breast cancer, factor 5 deficiency, hypertension, migraines, poly substance abuse, seizure disorder, and von Willebrand's disease, presenting to the ER via EMS after being found ?unresponsive by EMS, assumed to be an overdose. She was given Narcan by EMS became responsive. On arrival, BP 105/88, vitals within limits. Patient is alert and oriented x1. She appears confused, will not answer questions appropriately. When asked if anything was bothering her she reports her head but is unable to expand on any certain details regarding her head pain. She is nontoxic appearing however refusing to answer questions Plan: Labs, EKG, chest x-ray, UA, CT head Differential Diagnosis Differential Diagnoses: The differential diagnosis associated with the presentation includes Altered mental status, substance abuse, ICH, subdural hematoma, Admission/Observation Consideration of admission/observation: Escalation of care including admission/observation considered Patient would have been admitted to the hospital had her work up had any findings where hospital admission was appropriate and her clinical presentation warranted hospital admission. Lab Data MDM Lab Attestation statement: I reviewed the patient's lab results. See above course 07/01/23 16:26 07/01/23 16:26 Labs: Lab Results 07/01/23 07/01/23 07/01/23 Range/Units 15:58 16:26 16:39 WBC 7.3 (4.8-10.8) X10*3/uL RBC 4.50 (4.20-5.50) X10*6/uL Hgb 14.6 (12.0-16.0) g/dl Hct 43.9 (37.0-47.0) % MCV 97.6 (80.0-98.0) fL MCH 32.4 (27.0-33.0) pg MCHC 33.3 (31.0-35.0) g/dl RDW 12.9 (11.0-16.0) % Plt Count 189 (160-400) X10*3/uL MPV 10.0 (9.4-12.3) fL Immature Gran % (Auto) 0.4 (0.0-0.4) % Neut % (Auto) 73.1 H (45-73) % Lymph % (Auto) 20.8 (20-40) % [place] % (Auto) 5.7 (2-11) % Eos % (Auto) 0.0 (0-4) % Baso % (Auto) 0.0 (0-2) % Lymph # (Auto) 1.5 (1.2-4.9) X10*3/uL [place] # (Auto) 0.4 (0.1-1.2) X10*3/uL Eos # (Auto) 0.0 (0.0-0.4) X10*3/uL Baso # (Auto) 0.0 (0.0-0.2) X10*3/uL Abs Immat Gran (auto) 0.03 (0.00-0.03) X10*3/uL Absolute Neuts (auto) 5.4 (2.0-8.3) x10*3/uL Absolute Nucleated RBC 0.000 (0.0-0.012) X10*3/uL Nucleated RBC % (auto) 0.0 (0.0-0.2) /100WBC Sodium 143 (135-145) mmol/L Potassium 3.4 (3.3-5.1) mmol/L Chloride 106 (96-108) mmol/L Carbon Dioxide 26 (22-29) mmol/L Anion Gap 14 (12-20) BUN 33 H (9-16) mg/dL Creatinine 1.19 (0.5-1.4) mg/dL Estim Creat Clear Calc 46.3 Estimated GFR 47 POC Glucose 69 (60-115) mg/dL Random Glucose 92 (60-115) mg/dL Lactic Acid 0.9 (0.5-2.0) mmol/L Calcium 9.5 (8.4-10.2) mg/dL Magnesium 2.3 (1.6-2.6) mg/dL Total Bilirubin 0.6 (0.0-1.0) mg/dL Direct Bilirubin 0.3 (0.0-0.5) mg/dL AST 30 (5-31) U/L ALT 32 H (0-31) U/L Alkaline Phosphatase 132 H (39-117) U/L Ammonia 23 (13-55) umol/L Troponin I High Sens 3.5 (<3.5-17.0) ng/L Total Protein 6.6 (6.5-8.0) g/dL Albumin 4.1 (3.5-5.0) g/dL Lipase 15 (8-78) U/L Urine Color Yellow Urine Appearance Clear Urine pH 5.5 (5.0-9.0) Ur Specific [place] 1.015 (1.005-1.025) Urine Protein Negative (Neg-Trace) mg/dL Urine Glucose (UA) Negative (Negative) mg/dL Urine Ketones Negative (Negative) mg/dL Urine Blood Negative (Negative) Urine Nitrite Negative (Negative) Ur Leukocyte Esterase Trace H (Negative) Urine RBC 0-2 (0-2) /HPF Urine WBC 0-5 (0-5) /HPF Ur Squamous Epith Cells 0-2 (0-2) /HPF Urine Bacteria None Seen (None Seen) Hyaline Casts 0-2 (0-2) /LPF Urine Opiates Screen POSITIVE H (Not Detect) Urine Fentanyl Screen Not Detected (Not Detect) Ur Barbiturates Screen Not Detected (Not Detect) Ur Phencyclidine Scrn Not Detected (Not Detect) Ur Amphetamines Screen Not Detected (Not Detect) U Benzodiazepines Scrn POSITIVE H (Not Detect) Urine Cocaine Screen Not Detected (Not Detect) U Marijuana (THC) Screen Not Detected (Not Detect) Ethyl Alcohol < 10 mg/dL Influenza Type A (PCR) NEGATIVE (Negative) Influenza Type B (PCR) NEGATIVE (Negative) RSV RNA Qual (PCR) NEGATIVE (Negative) SARS-CoV-2 RNA (RT-PCR) NEGATIVE (Negative) Radiology Impression Discussion of test interpretation with radiology: I have reviewed the radiologist's reading. External Record Review External record reviewed: Inpatient record, Office record, Outpatient record, Prior outpatient labs, Prior outpatient radiology, Primary care record and Outside ED record Critical Care Time Critical Care Time Critical Care Time: Yes Total Critical Care Time: 35 Attestation: I have personally provided critical care time exclusive of time spent on separately billable procedures. Time includes review of lab data, radiology results, discussion with consultants, and monitoring for potential decompensation. Intervention performed as documented. Discharge Plan Discharge Clinical Impression: Post-ictal state, Post-ictal aphasia, Seizure disorder Patient Disposition: Home, Self-Care Instructions: Recurrent Seizures in Adults (ED) Additional Instructions: You were seen in the emergency department today. Your head CT was normal. Your chest x-ray was normal. Your abdomen and pelvis CT showed some mild constipation otherwise normal. You likely had a seizure today and were in a postictal state. Your workup today was reassuring. Please follow-up with your neurologist next week. If any new or worsening symptoms occur including but not limited to worsening headaches, seizure-like activity, chest pain or shortness of breath, please return for re-evaluation. Prescriptions: No Action bumetanide 0.5 mg tablet 0.5 mg PO BID 30 Days Qty: 60 5RF ondansetron HCl 8 mg tablet 1 tab PO TID PRN (Reason: nausea/vomiting) albuterol sulfate 90 mcg/actuation HFA aerosol inhaler 2 puff PO Q6H PRN (Reason: wheezing) loperamide 2 mg capsule 2 mg PO Q4H PRN (Reason: diarrhea) multivitamin Tablet 1 tab PO DAILY cetirizine 10 mg tablet 10 mg PO DAILY sumatriptan succinate 100 mg tablet 100 mg PO DAILY PRN (Reason: Migraine Headache) oxycodone 15 mg tablet 15 mg PO 5XD Patient Comments: Patient stated takes prn. omeprazole 20 mg capsule,delayed release(DR/EC) 20 mg PO DAILY epinephrine 0.3 mg/0.3 mL auto-injector 0.3 mg IM ONCE levetiracetam 1,000 mg tablet 1,000 mg PO BID olanzapine 5 mg tablet 7.5 - 10 mg PO BEDTIME 30 Days Qty: 60 0RF Rx Instructions: take 1.5 tablet po qHS; take 1/2 tablet po qd PRN agitation, sleep olanzapine 2.5 mg tablet 2.5 mg PO BID 30 Days Qty: 60 0RF Rx Instructions: take 1 tablet po daily in AM and 1 tablet po daily in afternoon - hold for sedation duloxetine 60 mg capsule,delayed release(DR/EC) 60 mg PO BID Qty: 60 0RF clonazepam 0.5 mg tablet 0.5 mg PO BID PRN (Reason: anxiety) midodrine 2.5 mg tablet 2.5 mg PO BID 30 Days Qty: 60 3RF Rx Instructions: do not give last dose of day after 6PM or within 4 hrs of bedtime bumetanide 0.5 mg tablet 0.5 mg PO BID 30 Days Qty: 60 3RF Interventions: ED Discharge Assessment Last Done: 07/01/23 22:36 Discharge Date/Time: 07/01/23 22:36
[2023-07-01 16:33] LABS: MANUAL DIFF FLAG NO
[2023-07-01 16:37] LABS: Hematocrit 43.9 % (37.0-47.0); Hemoglobin 14.6 g/dl (12.0-16.0); Imm Gran Abs Auto 0.03 X10*3/uL (0.00-0.03); Imm Gran Pct Auto 0.4 % (0.0-0.4); Lymphocytes Absolute Auto 1.5 X10*3/uL (1.2-4.9); Lymphocytes Percent Auto 20.8 % (20-40); Mean Corpuscular HGB Conc 33.3 g/dl (31.0-35.0); Mean Corpuscular Hemoglobin 32.4 pg (27.0-33.0); Mean Corpuscular Volume 97.6 fL (80.0-98.0); Monocytes Absolute Auto 0.4 X10*3/uL (0.1-1.2); Monocytes Percent Auto 5.7 % (2-11); Neutrophils Absolute Auto 5.4 x10*3/uL (2.0-8.3); Neutrophils Percent Auto 73.1 % (45-73); Platelet Count 189 X10*3/uL (160-400); Red Cell Distribution Width 12.9 % (11.0-16.0); White Blood Count 7.3 X10*3/uL (4.8-10.8)
[2023-07-01 16:46] LABS: Appearance Urine Clear; Color Urine Yellow; Glucose Urine UA Negative (Negative); Leukocyte Esterase Urine Trace (Negative); Nitrite Urine Negative (Negative); PH 5.5 (5.0-9.0); Specific Gravity - Urine 1.015 (1.005-1.025); UMIC TRIGGER UACC YES; Urine Blood Negative (Negative); Urine Ketones Negative (Negative); Urine Protein Negative (Neg-Trace)
[2023-07-01 16:48] LABS: Bacteria Urine None Seen (None Seen); Hyaline Casts Urine 0-2 /LPF (0-2); RBC Urine 0-2 /HPF (0-2); Squamous Epithelial Cell Urine 0-2 /HPF (0-2); WBC Urine 0-5 /HPF (0-5)
[2023-07-01 16:49] LABS: Ammonia 23 umol/L (13-55)
--- NOTE | 2023-07-01 16:49 | MHC.EDTECH ---
This pct attempted to obtain an EKG but wasnt able to obtain an EKG due to patients excessive restless condition. RN Aware marilin PSachi luther
[2023-07-01 16:51] LABS: Amphetamine Screen Urine Not Detected (Not Detect); Barbiturates, Urine Not Detected (Not Detect); Benzodiazepines Screen Urine POSITIVE (Not Detect); Cannabinoid Screen Urine Not Detected (Not Detect); Cocaine Screen Urine Not Detected (Not Detect); Fentanyl, urine Not Detected (Not Detect); Opiate Screen Urine POSITIVE (Not Detect); Phencyclidine Screen Urine Not Detected (Not Detect)
[2023-07-01 16:53] LABS: Alanine Aminotransferase 32 U/L (0-31); Albumin Level 4.1 g/dL (3.5-5.0); Alkaline Phosphatase 132 U/L (39-117); Anion Gap 14 (12-20); Aspartate Amino Transferase 30 U/L (5-31); Bilirubin Direct 0.3 mg/dL (0.0-0.5); Bilirubin Total 0.6 mg/dL (0.0-1.0); Blood Urea Nitrogen 33 mg/dL (9-16); Calcium 9.5 mg/dL (8.4-10.2); Carbon Dioxide 26 mmol/L (22-29); Chloride 106 mmol/L (96-108); Creatinine Clr Calc Pharmacy 46.3; Estimated Glomerular Filt Rate 47; Glucose Random 92 mg/dL (60-115); Lactic Acid 0.9 mmol/L (0.5-2.0); Lipase 15 U/L (8-78); Magnesium 2.3 mg/dL (1.6-2.6); Potassium 3.4 mmol/L (3.3-5.1); Sodium 143 mmol/L (135-145); Total Protein 6.6 g/dL (6.5-8.0)
[2023-07-01 16:55] LABS: Ethanol < 10 mg/dL
--- NOTE | 2023-07-01 16:55 | MHC.EDTECH ---
This pct attempted to draw labs but due to patients current condition its unsafe to draw labs RN Aware
[2023-07-01 17:00] LABS: Troponin-I High Sensitivity 3.5 ng/L (<3.5-17.0)
[2023-07-01 17:13] LABS: Influenza A PCR NEGATIVE (Negative); Influenza B PCR NEGATIVE (Negative); Resp Syncy Virus RNA Qual PCR NEGATIVE (Negative); SARS COV2 PCR INHOUSE NEGATIVE (Negative)
--- NOTE | 2023-07-01 17:30 | PC.NURSE ---
spoke with son and he reports that his mother had a seizure on the stretcher right when EMS was getting her, pt has hx of seizures, pt is typical alert and oriented at baseline per her son
[2023-07-01 18:21] VITALS: BP 123/79; PULSE 87; RESP 13; TEMP 36.7; O2SAT 99
--- NOTE | 2023-07-01 18:30 | PC.NURSE ---
pt is doing better, able to rest peacefully and requesting food, still reporting a headache and neck pain
[2023-07-01 20:23] VITALS: BP 111/73; PULSE 74; RESP 12; TEMP 36.8; O2SAT 99
[2023-07-01] MEDS: 0.9 % Sodium Chloride 1,000 ML 999 ML IV (20:32)
--- NOTE | 2023-07-01 20:59 | PC.NURSE ---
Pt aox3. Unsure of todays date. Aware of self, place, and situation. Reports h/a and abd pain, 02/17. Pending Ct scan results. Pts son, Jeronimo, called for an update. Jeronimo updated per pts verbal request.
[2023-07-01] MEDS: oxyCODONE HCl Immed Release 15 MG TABLET PO (22:20)
[2023-07-01 22:25] VITALS: BP 131/91; PULSE 92; RESP 14; TEMP 36.4; O2SAT 97
== END 2023-07-01 22:36 | disposition home or self-care (01) ==
PROVIDERS: Physician Assistant Medical; Emergency Provider Internal Medicine
DX: G40.802 Other epilepsy, not intractable, without status epilepticus (principal); Z20.822 Contact with and (suspected) exposure to COVID-19; Z20.828 Contact with and (suspected) exposure to other viral communicable diseases; F19.10 Other psychoactive substance abuse, uncomplicated; N18.30 Chronic kidney disease, stage 3 unspecified; J44.9 Chronic obstructive pulmonary disease, unspecified; I48.91 Unspecified atrial fibrillation; D68.51 Activated protein C resistance; D68.00 Von Willebrand disease, unspecified; F17.210 Nicotine dependence, cigarettes, uncomplicated; Z85.3 Personal history of malignant neoplasm of breast; Z85.42 Personal history of malignant neoplasm of other parts of uterus; Z98.84 Bariatric surgery status; Z79.899 Other long term (current) drug therapy
CPT/HCPCS: 0241U; 70450; 71045; 74176; 80048; 80076; 80307; 81001; 82140; 82947; 83605; 83690; 83735; 84484; 85025; 87040; 93005; 96360; 96361; 99285

== ENCOUNTER → 2023-07-01 16:08 | Outpatient (BNV) | payer MEDICARE, MEDICAID, SELFPAY | PROVIDERS: Emergency Provider Internal Medicine; Visit Provider Internal Medicine Cardiovascular Disease | DX: R41.82 Altered mental status, unspecified (principal) | CPT/HCPCS: 93010 ==

== ENCOUNTER 2023-08-02 15:44 | Emergency (ER) | payer MEDICARE, MEDICAID, SELFPAY ==
[2023-08-02 16:06] VITALS: BP 117/79; PULSE 70; RESP 18; TEMP 36.1; O2SAT 99; BMI 24.7
--- NOTE | 2023-08-02 16:08 | ED.SEIZURE ---
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, breast cancer in remission, history of substance abuse, chronic pain on oxycodone, anxiety/PTSD with frequent seizures in the past last seizure was 2 weeks ago today patient had headache as usual took sumatriptan morning prior to arrival she had a seizure generalized tonic-clonic lasted for 5 minutes without any significant injury or seizure patient complaining of headache on the right which is usual for her patient feels sleepy and tired no injury no tongue bite patient feels nauseated postictal patient was having slightly slurred/scanning speech but on arrival patient is back to normal no focal deficit patient has CT scan month ago which was negative Related Data Home Medications Medication Instructions Recorded Confirmed albuterol sulfate 90 mcg/actuation 2 puff PO Q6H PRN wheezing 01/29/21 04/28/23 aerosol inhaler ondansetron HCl 8 mg tablet 1 tab PO TID PRN nausea/vomiting 01/29/21 04/28/23 cetirizine 10 mg tablet 10 mg PO DAILY 04/28/23 04/28/23 epinephrine 0.3 mg/0.3 mL 0.3 mg IM ONCE anaphylaxis 04/28/23 04/28/23 injection, auto-injector levetiracetam 1,000 mg tablet 1,000 mg PO BID 04/28/23 04/28/23 loperamide 2 mg capsule 2 mg PO Q4H PRN diarrhea 04/28/23 04/28/23 multivitamin 1 tab PO DAILY 04/28/23 04/28/23 omeprazole 20 mg capsule,delayed 20 mg PO DAILY 04/28/23 04/28/23 release oxycodone 15 mg tablet 15 mg PO 5XD 04/28/23 04/28/23 sumatriptan succinate 100 mg tablet 100 mg PO DAILY PRN Migraine 04/28/23 04/28/23 Headache clonazepam 0.5 mg tablet 0.5 mg PO BID PRN anxiety 06/01/23 Previous Rx's Medication Instructions Recorded bumetanide 0.5 mg tablet 0.5 mg PO BID 30 days #60 tabs 05/27/23 bumetanide 0.5 mg tablet 0.5 mg PO BID 30 days #60 tabs 06/01/23 midodrine 2.5 mg tablet 2.5 mg PO BID 30 days #60 tabs 06/01/23 duloxetine 60 mg capsule,delayed 60 mg PO BID #60 caps 06/10/23 release olanzapine 2.5 mg tablet 2.5 mg PO BID 30 days #60 tabs 06/10/23 olanzapine 5 mg tablet 7.5 - 10 mg (1.5 - 2 x 5 mg) PO 06/10/23 BEDTIME 30 days #60 tabs Allergies Allergy/AdvReac Type Severity Reaction Status Date / Time bee pollen [Bee Stings] Allergy Mild ANAPHYLAXIS Verified 06/01/23 09:54 codeine [Codeine] Allergy Mild ANAPHYLAXIS Verified 06/01/23 09:54 Penicillins Allergy Mild UNKNOWN Verified 06/01/23 09:54 aspirin [ASA] Allergy Unknown Verified 06/01/23 09:54 ciprofloxacin [From Cipro] Allergy Rash Verified 06/01/23 09:54 Iodinated Contrast Media Allergy Hives Verified 06/01/23 09:54 [Contrast Dye] latex Allergy Rash Verified 06/01/23 09:54 macadamia nut Allergy Anaphylaxis Verified 06/01/23 09:54 Sulfa (Sulfonamide Allergy Anaphylaxis Verified 06/01/23 09:54 Antibiotics) sulfamethoxazole Allergy Anaphylaxis Verified 06/01/23 09:54 [From Bactrim] trimethoprim [From Bactrim] Allergy Anaphylaxis Verified 06/01/23 09:54 bee stings Allergy Unknown anaphylaxis Uncoded 09/02/11 00:00 Codeine Phosphate Allergy Unknown stomach Uncoded 09/02/11 00:00 upset Penicillin Allergy Unknown anaphylaxis Uncoded 09/02/11 00:00 Review of Systems Review of Systems: Yes all other systems are reviewed and are negative PMFSH Past Medical History Medical History Seizure disorder History of prolonged Q-T interval on ECG Psychogenic nonepileptic seizure CKD (chronic kidney disease) stage 3, GFR 30-59 ml/min COPD (chronic obstructive pulmonary disease) GERD (gastroesophageal reflux disease) Port-A-Cath in place Malabsorption Compression fracture of C3 vertebra Self-catheterizes urinary bladder Neuropathy SIADH (syndrome of inappropriate ADH production) Chronic anemia Enlarged liver Enlarged heart History of atrial fibrillation Polysubstance abuse Von Willebrand disease Factor V deficiency Depression Uterine cancer Breast cancer Migraines Asthma Seizure Surgical History H/O knee surgery Hx of cholecystectomy History of hysterectomy H/O gastric bypass Social History Social History Household Members: Children Alcohol intake: unknown Patient Tobacco Use Status: Current someday Tobacco user Tobacco use type: Cigarette Smoked in Last 30 Days: Yes Use of substances other than those prescribed or required for medical reasons: No Advance Directives: No Advance Directives Information Provided: Yes Physical Exam Vital Signs: Vital Signs: Last Vital Signs Temp 96.9 F 08/02/23 16:06 Pulse 70 08/02/23 16:06 Resp 18 08/02/23 16:06 BP 117/79 08/02/23 16:06 Pulse Ox 99 08/02/23 16:06 O2 Del Method Room Air 08/02/23 16:06 BMI result Body Mass Index 24.7 Appearance: Alert. Oriented X3. No acute distress. Eyes: PERRLA, No Nystagmus ENT: Pharynx normal. Oral Mucosa moist no tongue bite no temporal artery tenderness Neck: Normal inspection. Neck supple. CVS: Normal heart rate and rhythm. Pulses normal. Respiratory: No respiratory distress. Equal air entry bilateral, no wheezing/rales/rhonchi Abdomen: Soft and nontender. Bowel sounds are present, no mass palpable, no CVA tenderness Skin: Skin warm and dry. Normal skin color. Normal skin turgor. Extremities: No lower extremity edema. No calf tenderness Neuro: Oriented X 3. No motor deficit. No sensory deficit.No cerebellar signs , cranial nerves II-XII intact normal speech NIH Stroke Scale Internal: Initial- Upon Arrival Level of Consciousness: Alert Level of Consciousness Questions: Answers both questions correctly Level of Consciousness Commands: Performs both tasks correctly Best Gaze: Normal Visual: No visual loss Facial Palsy: Normal Motor Arm (Right): No drift Motor Arm (Left): No drift Motor Leg (Right): No drift Motor Leg (Left): No drift Limb Ataxia: Absent Sensory: Normal Best Language: No aphasia Dysarthia: Normal Extinction and Inattention: No abnormality Score: 0 Course Course Course Narrative: RME: 58 year-old F w/ PMHx seizures, depression, SIADH, Von Willebrand's, factor 5, CKD, GERD, asthma presenting to the ED c/o speech difficulty/slurred speech, word-finding issues, difficulty ambulating, difficulty opening left eye x before arrival, unknown exact time. Patient does have history of seizures and believes she may have had a seizure [employer]ED [employer], denies head trauma or LOC Stroke protocol inititated, patient brought back to main ED Full HPI, ROS and PE to be performed by primary ED provider. Medications Administered Discontinued Medications Generic Name Dose Route Start Last Admin Trade Name Freq PRN Reason Stop Dose Admin Levetiracetam 1,000 mg 08/02/23 17:01 08/02/23 17:09 Levetiracetam 1,000 Mg Tablet PO 08/02/23 17:02 1,000 mg ONCE ONE Administration Lorazepam 2 mg 08/02/23 16:45 08/02/23 17:11 Lorazepam 1 Mg Tablet PO 08/02/23 16:46 2 mg ONCE ONE Administration Ondansetron HCl 4 mg 08/02/23 16:45 08/02/23 17:11 Ondansetron Odt 4 Mg Tab.Rapdis TRANSLINGU 08/02/23 16:46 4 mg ONCE ONE Administration Oxycodone HCl 10 mg 08/02/23 16:45 08/02/23 17:10 Oxycodone Hcl Immed Release 5 Mg Tablet PO 08/02/23 16:46 10 mg ONCE ONE Administration Medical Decision Making Medical Decision Making [facility] Narrative: Patient with migraine headaches with seizure disorder comes here with post seizure episode with postictal confusion improved during stay in the ER ambulatory no signs of CVA discharge patient home Lab Data [facility] Lab Attestation statement: I reviewed the patient's lab results. 08/02/23 16:56 08/02/23 16:56 Labs: Lab Results 08/02/23 Range/Units 16:56 WBC 4.6 L (4.8-10.8) X10*3/uL RBC 4.20 (4.20-5.50) X10*6/uL Hgb 13.6 (12.0-16.0) g/dl Hct 41.0 (37.0-47.0) % MCV 97.6 (80.0-98.0) fL MCH 32.4 (27.0-33.0) pg MCHC 33.2 (31.0-35.0) g/dl RDW 12.5 (11.0-16.0) % Plt Count 153 L (160-400) X10*3/uL MPV 10.0 (9.4-12.3) fL Immature Gran % (Auto) 0.4 (0.0-0.4) % Neut % (Auto) 62.4 (45-73) % Lymph % (Auto) 28.3 (20-40) % [place] % (Auto) 8.9 (2-11) % Eos % (Auto) 0.0 (0-4) % Baso % (Auto) 0.0 (0-2) % Lymph # (Auto) 1.3 (1.2-4.9) X10*3/uL [place] # (Auto) 0.4 (0.1-1.2) X10*3/uL Eos # (Auto) 0.0 (0.0-0.4) X10*3/uL Baso # (Auto) 0.0 (0.0-0.2) X10*3/uL Abs Immat Gran (auto) 0.02 (0.00-0.03) X10*3/uL Absolute Neuts (auto) 2.9 (2.0-8.3) x10*3/uL Absolute Nucleated RBC 0.000 (0.0-0.012) X10*3/uL Nucleated RBC % (auto) 0.0 (0.0-0.2) /100WBC PT 11.1 (11.1-13.3) SEC INR 0.9 (0.9-1.1) Sodium 144 (135-145) mmol/L Potassium 3.9 (3.3-5.1) mmol/L Chloride 107 (96-108) mmol/L Carbon Dioxide 28 (22-29) mmol/L Anion Gap 13 (12-20) BUN 39 H (9-16) mg/dL Creatinine 1.31 (0.5-1.4) mg/dL Estim Creat Clear Calc 40.3 Estimated GFR 42 Random Glucose 115 (60-115) mg/dL Calcium 8.9 D (8.4-10.2) mg/dL Total Bilirubin 0.3 (0.0-1.0) mg/dL AST 35 H (5-31) U/L ALT 36 H (0-31) U/L Alkaline Phosphatase 116 (39-117) U/L Total Protein 6.4 L (6.5-8.0) g/dL Albumin 3.9 (3.5-5.0) g/dL Discharge Plan Discharge Clinical Impression: Seizure disorder, Headache, migraine Patient Disposition: Home, Self-Care Instructions: Migraine Headache (ED), Epilepsy (ED) Additional Instructions: Continue taking medication as prescribed by your neurologist and PCP Follow-up as outpatient with your neurologist Prescriptions: No Action bumetanide 0.5 mg tablet 0.5 mg PO BID 30 Days Qty: 60 5RF ondansetron HCl 8 mg tablet 1 tab PO TID PRN (Reason: nausea/vomiting) albuterol sulfate 90 mcg/actuation HFA aerosol inhaler 2 puff PO Q6H PRN (Reason: wheezing) loperamide 2 mg capsule 2 mg PO Q4H PRN (Reason: diarrhea) multivitamin Tablet 1 tab PO DAILY cetirizine 10 mg tablet 10 mg PO DAILY sumatriptan succinate 100 mg tablet 100 mg PO DAILY PRN (Reason: Migraine Headache) oxycodone 15 mg tablet 15 mg PO 5XD Patient Comments: Patient stated takes prn. omeprazole 20 mg capsule,delayed release(DR/EC) 20 mg PO DAILY epinephrine 0.3 mg/0.3 mL auto-injector 0.3 mg IM ONCE levetiracetam 1,000 mg tablet 1,000 mg PO BID olanzapine 5 mg tablet 7.5 - 10 mg PO BEDTIME 30 Days Qty: 60 0RF Rx Instructions: take 1.5 tablet po qHS; take 1/2 tablet po qd PRN agitation, sleep olanzapine 2.5 mg tablet 2.5 mg PO BID 30 Days Qty: 60 0RF Rx Instructions: take 1 tablet po daily in AM and 1 tablet po daily in afternoon - hold for sedation duloxetine 60 mg capsule,delayed release(DR/EC) 60 mg PO BID Qty: 60 0RF clonazepam 0.5 mg tablet 0.5 mg PO BID PRN (Reason: anxiety) midodrine 2.5 mg tablet 2.5 mg PO BID 30 Days Qty: 60 3RF Rx Instructions: do not give last dose of day after 6PM or within 4 hrs of bedtime bumetanide 0.5 mg tablet 0.5 mg PO BID 30 Days Qty: 60 3RF Interventions: ED Discharge Assessment Last Done: 08/02/23 18:32 Discharge Date/Time: 08/02/23 18:32
--- NOTE | 2023-08-02 16:11 | ECG_ITS ---
Test Reason : SEIZURE Blood Pressure : / mmHG Vent. Rate : 059 BPM Atrial Rate : 059 BPM P-R Int : 128 ms QRS Dur : 082 ms QT Int : 478 ms P-R-T Axes : -04 -04 027 degrees QTc Int : 473 ms Sinus bradycardia Otherwise normal ECG When compared with ECG of 01-JUL-2023 18:25, No significant change was found Referred By: Maico Taylor Electronically Signed By:Axel Balbuena
[2023-08-02 17:00] LABS: MANUAL DIFF FLAG NO
[2023-08-02 17:02] LABS: Hemoglobin 13.6 g/dl (12.0-16.0); Imm Gran Abs Auto 0.02 X10*3/uL (0.00-0.03); Imm Gran Pct Auto 0.4 % (0.0-0.4); Lymphocytes Absolute Auto 1.3 X10*3/uL (1.2-4.9); Lymphocytes Percent Auto 28.3 % (20-40); Mean Corpuscular HGB Conc 33.2 g/dl (31.0-35.0); Mean Corpuscular Hemoglobin 32.4 pg (27.0-33.0); Mean Corpuscular Volume 97.6 fL (80.0-98.0); Monocytes Absolute Auto 0.4 X10*3/uL (0.1-1.2); Monocytes Percent Auto 8.9 % (2-11); Neutrophils Absolute Auto 2.9 x10*3/uL (2.0-8.3); Neutrophils Percent Auto 62.4 % (45-73); Platelet Count 153 X10*3/uL (160-400); Red Cell Distribution Width 12.5 % (11.0-16.0); White Blood Count 4.6 X10*3/uL (4.8-10.8)
[2023-08-02] MEDS: levETIRAcetam 1,000 MG TABLET 1000 MG PO (17:09)
[2023-08-02] MEDS: oxyCODONE HCl Immed Release 5 MG TABLET 10 MG PO (17:10)
[2023-08-02] MEDS: Ondansetron ODT 4 MG TAB.RAPDIS TRANSLINGU (17:11)
[2023-08-02] MEDS: LORazepam 1 MG TABLET 2 MG PO (17:11)
--- NOTE | 2023-08-02 17:13 | PC.NURSE ---
pt alert, oriented. Reporting 8/10 headache post seizure.pt reports that they had a seizure this afternoon. Hx of seizures. Now, pt is back to baseline, but reports photophobia with headache. seizure precautions in place. Per Dr. Sosa, no IV line is needed at this time - PO meds given per SEP. Pt SALESPERSON JEWELRY at bedside. Labs and EKG done. plan of care ongoing
[2023-08-02 17:14] LABS: INTERNATIONAL NORM RATIO 0.9 (0.9-1.1); Prothrombin Time 11.1 SEC (11.1-13.3)
[2023-08-02 17:16] LABS: Alanine Aminotransferase 36 U/L (0-31); Albumin Level 3.9 g/dL (3.5-5.0); Alkaline Phosphatase 116 U/L (39-117); Anion Gap 13 (12-20); Aspartate Amino Transferase 35 U/L (5-31); Bilirubin Total 0.3 mg/dL (0.0-1.0); Blood Urea Nitrogen 39 mg/dL (9-16); Calcium 8.9 mg/dL (8.4-10.2); Carbon Dioxide 28 mmol/L (22-29); Chloride 107 mmol/L (96-108); Creatinine Clr Calc Pharmacy 40.3; Estimated Glomerular Filt Rate 42; Glucose Random 115 mg/dL (60-115); Potassium 3.9 mmol/L (3.3-5.1); Sodium 144 mmol/L (135-145); Total Protein 6.4 g/dL (6.5-8.0)
== END 2023-08-02 18:32 | disposition home or self-care (01) ==
PROVIDERS: Physician Assistant; Emergency Provider Internal Medicine; PCP Family Medicine
DX: G40.909 Epilepsy, unspecified, not intractable, without status epilepticus (principal); G43.909 Migraine, unspecified, not intractable, without status migrainosus; I48.91 Unspecified atrial fibrillation
CPT/HCPCS: 36415; 80053; 85025; 85610; 93005; 99283; 99284

== ENCOUNTER → 2023-08-02 16:11 | Outpatient (BNV) | payer MEDICARE, MEDICAID, SELFPAY | PROVIDERS: Emergency Provider Internal Medicine; PCP Family Medicine; Visit Provider Internal Medicine Cardiovascular Disease | DX: R00.1 Bradycardia, unspecified (principal) | CPT/HCPCS: 93010 ==

== ENCOUNTER 2023-08-03 09:37 | Outpatient (AMB) | payer MEDICARE, MEDICAID, SELFPAY ==
[2023-08-03 09:42] VITALS: BP 120/82; PULSE 94; O2SAT 96; BMI 28.3
--- NOTE | 2023-08-03 09:42 | HO.NEPHOV ---
HPI HPI Comments History of Present Illness Details I had the privilege of seeing Jayda for her chronic kidney disease. Her seizures are better controlled . She had been having significant pedal edema forcing her to take high-dose Bumex with resultant improvement. At that time her serum creatinine has gone up. She has reduced her Bumex dose to 0.5 mg twice daily. Her breast cancer is closely monitored by [facility]. She is not on any new medications. She denies any chest pain, shortness of breath, nausea, vomiting, diarrhea, weight gain, orthopnea or paroxysmal nocturnal dyspnea. She is not taking any nonsteroidal anti-inflammatory medications. She had orthostatic symptoms which has improved on midodrine. She has history of atrial fibrillation which has been under control. She had a seizure and was kept in hospital last night. She is going to have knee surgery. [facility] Medical History (Updated 08/03/23 @ 10:02 by Marbin Dowd MD) Orthostatic hypotension Seizure disorder History of prolonged Q-T interval on ECG Psychogenic nonepileptic seizure CKD (chronic kidney disease) stage 3, GFR 30-59 ml/min COPD (chronic obstructive pulmonary disease) GERD (gastroesophageal reflux disease) Port-A-Cath in place Malabsorption Compression fracture of C3 vertebra Self-catheterizes urinary bladder Neuropathy SIADH (syndrome of inappropriate ADH production) Chronic anemia Enlarged liver Enlarged heart History of atrial fibrillation Polysubstance abuse Von Willebrand disease Factor V deficiency Depression Uterine cancer Breast cancer Migraines Asthma Seizure Surgical History H/O knee surgery Hx of cholecystectomy History of hysterectomy H/O gastric bypass Social History Household Members: Children Alcohol intake: unknown Patient Tobacco Use Status: Current someday Tobacco user Tobacco use type: Cigarette Vital Signs 08/03/23 09:42 Height 5 ft 2 in Weight 155 lb BMI 28.3 BP 120/82 Blood Pressure Location Lt brachial Position Sitting Pulse 94 Pulse Source Pulse Oximeter Pulse Oximetry (%) 96 Oxygen Delivery Method Room Air Physical Exam Vital Signs: Last Vital Signs Pulse 94 08/03/23 09:42 BP 120/82 08/03/23 09:42 Pulse Ox 96 08/03/23 09:42 Oxygen Delivery Method Room Air 08/03/23 09:42 BMI result Body Mass Index 28.3 Const General: comfortable and no acute distress Orientation/consciousness: patient oriented x3 HEENT Head: Yes normocephalic Mouth: Normal oral and palatal mucosa present Eyes EOM: EOMs intact bilaterally Neck Neck: Yes supple Resp Auscultation: clear to auscultation bilaterally Cardio Jugular venous distension: no JVD Rate: regular rate GI Palpation (GI): Soft to palpation Auscultation: normal bowel sounds General: Yes no CVA tenderness Back/Spine/Pelvis Back: no CVA tenderness Skin General skin exam: no rashes or lesions noted Neuro General: patient oriented x3 and moves all extremities Extrem General: Yes no pedal edema Assessment & Plan Assessment & Plan (1) CKD (chronic kidney disease) stage 3, GFR 30-59 ml/min: Code(s): N18.30 - Chronic kidney disease, stage 3 unspecified Qualifiers: Chronic kidney disease stage 3 subtype: stage 3a (GFR 45-59) Qualified Code(s): N18.31 - Chronic kidney disease, stage 3a (2) Orthostatic hypotension: Code(s): I95.1 - Orthostatic hypotension Plan Jayda has a chronic kidney disease but has H/O recurrent ROBEL following excessive diuresis. Her serum creatinine is stable now. Her volume status got optimized and is on Bumex 0.5 mg twice daily. She is not consuming excess salt. I asked her not to take excessive diuretics. She should continue on midodrine 2.5 mg twice daily. She is avoiding nonsteroidal anti-inflammatory medications. She should maintain good hydration. I asked her to repeat blood work soon. She will be seen in office in follow-up Coding Level of Care Code Est Pt Level 3 (45584) Diagnoses Stage 3a chronic kidney disease N18.31 Chronic kidney disease stage 3 subtype: stage 3a (GFR 45-59) Orthostatic hypotension I95.1 Results Reviewed Nephrology Results: Hgb 13.6 g/dl (12.0-16.0) 08/02/23 WBC 4.6 X10*3/uL (4.8-10.8) L 08/02/23 Plt Count 153 X10*3/uL (160-400) L 08/02/23 Sodium 144 mmol/L (135-145) 08/02/23 Potassium 3.9 mmol/L (3.3-5.1) 08/02/23 Chloride 107 mmol/L (96-108) 08/02/23 Carbon Dioxide 28 mmol/L (22-29) 08/02/23 BUN 39 mg/dL (9-16) H 08/02/23 Creatinine 1.31 mg/dL (0.5-1.4) 08/02/23 Calcium 8.9 mg/dL (8.4-10.2) 08/02/23 Urine Protein Negative mg/dL (Neg-Trace) 07/01/23
== END 2023-08-03 10:16 | disposition home or self-care (01) ==
PROVIDERS: Visit Provider Internal Medicine Nephrology
DX: N18.31 Chronic kidney disease, stage 3a (principal); I95.1 Orthostatic hypotension
CPT/HCPCS: 99213

== ENCOUNTER → 2023-08-03 09:37 | Outpatient (BNVA) | payer MEDICARE, MEDICAID, SELFPAY | PROVIDERS: Visit Provider Internal Medicine Nephrology | DX: I95.1 Orthostatic hypotension (principal); N18.31 Chronic kidney disease, stage 3a | CPT/HCPCS: 99212 ==

== ENCOUNTER 2023-09-05 14:20 | Inpatient (IN) | payer MEDICARE, MEDICAID, SELFPAY ==
[2023-09-05] VITALS (8 sets, daily range): BP systolic 86–144; BP diastolic 48–76; PULSE 48–86; RESP 14–18; TEMP 35.7–37; O2SAT 96–100; BMI 26.0
--- NOTE | ~2023-09-05 | CT_ITS ---
EXAMINATION: CT HEAD WITHOUT CONTRAST CT CERVICAL SPINE WITHOUT CONTRAST CLINICAL INFORMATION: Head injury and neck pain. COMPARISON: Head CT from 07/01/2023. TECHNIQUE: Contiguous axial imaging was performed from the skullbase to vertex without intravenous administration of contrast. Multidetector helical imaging was performed through the cervical spine. This CT examination was performed using dose optimization techniques as appropriate, variously including the following: *Automated exposure control *Adjustment of mA and/or kV according to patient size (this includes techniques or standardized protocols for targeted exams where dose is matched to indication/reason for exam; i.e. extremities or head) *Use of iterative reconstruction technique DLP: 1214 mGy-cm. FINDINGS: HEAD: There is no evidence of acute intracranial hemorrhage or territorial infarction. No abnormal mass effect or midline shift is seen. Trejo to white matter differentiation is well preserved. No extra-axial fluid collections are identified. The ventricles are normal in size. Brain parenchymal attenuation is normal. The osseous structures and soft tissues are normal. The mastoid air cells and visualized portions of the paranasal sinuses are well aerated. CERVICAL SPINE: No acute fracture is identified in the cervical spine. There is a mild rightward curvature of the cervical spine. Prominent endplate Schmorl's nodes with sclerotic changes noted at the C3-C4 level where there is a mild anterolisthesis and moderate to severe facet arthropathy. Moderate to severe central canal stenosis evident at the C3-C4 level with left foraminal narrowing. Moderate loss of disc height with disc-osteophyte complexes noted at the C5-C6 and C6-C7 levels. The atlantoaxial articulation is normally maintained. The paraspinal soft tissues are normal. The lung apices are clear. CT/CT cervical spine wo IV con IMPRESSION: 1. No acute intracranial pathology. 2. No evidence of acute cervical spine traumatic injury. Moderate to severe central canal stenosis and mild anterolisthesis at the C3-C4 level; correlate for any myelopathic symptoms. Moderate spondylitic changes at the C5-C6 and C6-C7 levels.
--- NOTE | ~2023-09-05 | XR_ITS ---
EXAMINATION: XR CHEST CLINICAL INFORMATION: Chest pain. COMPARISON: Chest radiograph 07/01/2023. TECHNIQUE: Frontal view of the chest was obtained. FINDINGS: Left-sided chest port with the tip projecting at the level of the superior cavoatrial junction. No focal airspace opacities, pleural effusion or pneumothorax. Normal heart size. No acute osseous findings. Visualized upper abdomen is within normal limits. XR/XR chest 1V IMPRESSION: No acute cardiopulmonary findings.
--- NOTE | 2023-09-05 14:57 | PC.NURSE ---
Pt presents to ED from home via EMS. EMS reports pt coming from home, family noticed she was confused today and then was not responding appropriately. Family noticed two of her oxyxodone (10mg each) and 1 clonazepam was missing. They called for EMS due to decrease in responsiveness. Pt also has hx of seizures and family is unsure if she had one today, none witnessed. Pt presents as only responsive to painful stimuli. Airway patent, breathing even and unlabored, skin slightly pale, dry. Pt placed on bedside monitoring manager, sinus bradycardia with brief periods into the 40s. BP noted to be low in the 80s systolic. MD notified and at bedside.
--- NOTE | 2023-09-05 15:13 | ECG_ITS ---
Test Reason : ALTERED MENTAL Blood Pressure : / mmHG Vent. Rate : 055 BPM Atrial Rate : 055 BPM P-R Int : 124 ms QRS Dur : 076 ms QT Int : 494 ms P-R-T Axes : 005 001 040 degrees QTc Int : 472 ms Sinus bradycardia Otherwise normal ECG When compared with ECG of 02-AUG-2023 17:06, No significant change was found Referred By: Meagan Hmailton Electronically Signed By:MARITZA TEJADA
--- NOTE | 2023-09-05 15:15 | PC.NURSE ---
Pt able to respond to some questions for brief period. Pt reports pain in her head. Pt denies taking any pills today, drug/alcohol use, SI or HI. Pt then goes back to sleep, stops answering questions. notified. IV established in right AC 20G. Pt medicated per SEP.
[2023-09-05 15:19] LABS: Glucose, Whole Blood 75 mg/dL (60-115)
--- NOTE | 2023-09-05 15:22 | ED_ITS ---
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 Presents today with altered mental status question took an extra pill. Patient denies any suicidal homicidal ideations. Normally is on Keppra. Has frequent seizures. History of depression. Denies any recreational drug use today. History of gastric bypass history of cholecystectomy in the past Related Data Home Medications Medication Instructions Recorded Confirmed albuterol sulfate 90 mcg/actuation 2 puff PO Q6H PRN wheezing 01/29/21 04/28/23 aerosol inhaler ondansetron HCl 8 mg tablet 1 tab PO TID PRN nausea/vomiting 01/29/21 04/28/23 cetirizine 10 mg tablet 10 mg PO DAILY 04/28/23 04/28/23 epinephrine 0.3 mg/0.3 mL 0.3 mg IM ONCE anaphylaxis 04/28/23 04/28/23 injection, auto-injector levetiracetam 1,000 mg tablet 1,000 mg PO BID 04/28/23 04/28/23 loperamide 2 mg capsule 2 mg PO Q4H PRN diarrhea 04/28/23 04/28/23 multivitamin 1 tab PO DAILY 04/28/23 04/28/23 omeprazole 20 mg capsule,delayed 20 mg PO DAILY 04/28/23 04/28/23 release sumatriptan succinate 100 mg tablet 100 mg PO DAILY PRN Migraine 04/28/23 04/28/23 Headache clonazepam 0.5 mg tablet 0.5 mg PO BID PRN anxiety 06/01/23 bumetanide 0.5 mg tablet 2 mg PO DAILY PRN 08/03/23 cephalexin 500 mg capsule 500 mg PO QID 08/03/23 olanzapine 5 mg tablet 5 mg PO BEDTIME 08/03/23 oxycodone 10 mg tablet 10 mg PO 08/03/23 Previous Rx's Medication Instructions Recorded bumetanide 0.5 mg tablet 0.5 mg PO BID 30 days #60 tabs 05/27/23 midodrine 2.5 mg tablet 2.5 mg PO BID 30 days #60 tabs 06/01/23 duloxetine 60 mg capsule,delayed 60 mg PO BID #60 caps 06/10/23 release olanzapine 2.5 mg tablet 2.5 mg PO BID 30 days #60 tabs 06/10/23 Allergies Allergy/AdvReac Type Severity Reaction Status Date / Time bee pollen [Bee Stings] Allergy Mild ANAPHYLAXIS Verified 08/03/23 09:44 codeine [Codeine] Allergy Mild ANAPHYLAXIS Verified 08/03/23 09:44 Penicillins Allergy Mild UNKNOWN Verified 08/03/23 09:44 aspirin [ASA] Allergy Unknown Verified 08/03/23 09:44 ciprofloxacin [From Cipro] Allergy Rash Verified 08/03/23 09:44 Iodinated Contrast Media Allergy Hives Verified 08/03/23 09:44 [Contrast Dye] latex Allergy Rash Verified 08/03/23 09:44 macadamia nut Allergy Anaphylaxis Verified 08/03/23 09:44 Sulfa (Sulfonamide Allergy Anaphylaxis Verified 08/03/23 09:44 Antibiotics) sulfamethoxazole Allergy Anaphylaxis Verified 08/03/23 09:44 [From Bactrim] trimethoprim [From Bactrim] Allergy Anaphylaxis Verified 08/03/23 09:44 bee stings Allergy Unknown anaphylaxis Uncoded 09/02/11 00:00 Codeine Phosphate Allergy Unknown stomach Uncoded 09/02/11 00:00 upset Penicillin Allergy Unknown anaphylaxis Uncoded 09/02/11 00:00 Review of Systems 2 Review of Systems: No fever no chills Yes all other systems are reviewed and are negative PMFSH Past Medical History Attestation statement: The following information was validated with the patient. Medical History Orthostatic hypotension Seizure disorder History of prolonged Q-T interval on ECG Psychogenic nonepileptic seizure CKD (chronic kidney disease) stage 3, GFR 30-59 ml/min COPD (chronic obstructive pulmonary disease) GERD (gastroesophageal reflux disease) Port-A-Cath in place Malabsorption Compression fracture of C3 vertebra Self-catheterizes urinary bladder Neuropathy SIADH (syndrome of inappropriate ADH production) Chronic anemia Enlarged liver Enlarged heart History of atrial fibrillation Polysubstance abuse Von Willebrand disease Factor V deficiency Depression Uterine cancer Breast cancer Migraines Asthma Seizure Surgical History H/O knee surgery Hx of cholecystectomy History of hysterectomy H/O gastric bypass Social History Social History Household Members: Children Unable to assess alcohol history related to: Unknown Alcohol intake: unknown Patient Tobacco Use Status: Current someday Tobacco user Tobacco use type: Cigarette Use of substances other than those prescribed or required for medical reasons: Unable to respond Advance Directives: No Advance Directives Information Provided: No Physical Exam ED Vital Signs: Vital Signs - 24 hr 09/05/23 14:59 09/05/23 15:04 09/05/23 16:29 Temperature 96.3 F L 96.3 F L Pulse Rate 49 L 50 50 Respiratory Rate 16 16 16 Blood Pressure 86/63 L 86/53 L 108/68 Pulse Oximetry 97 97 99 Oxygen Delivery Method Room Air Room Air Room Air 09/05/23 17:01 09/05/23 19:24 Temperature 98.6 F Pulse Rate 48 L 60 Respiratory Rate 16 15 Blood Pressure 86/48 L 95/59 L Pulse Oximetry 98 99 Oxygen Delivery Method Room Air Room Air BMI result Body Mass Index 26.0 Appearance: Lethargic but arousable to painful stimuli. Eyes: Pupils equal, round and reactive to light. There were not pinpoint. ENT: Pharynx normal. Neck: Normal inspection. Neck supple. No lymph nodes noted. No crepitus CVS: Normal heart rate and rhythm. Pulses normal. Normal S1 and S2 Respiratory: No respiratory distress. Breath sounds normal. No Wheezing. No rales Abdomen: Soft and nontender. No rigidity. No distention. good BS x4 Skin: Skin warm and dry. Normal skin color. Normal skin turgor. Extremities: No lower extremity edema. Neurovascular intact to all extremities. No Lacerations. No Rash Neuro: Lethargic but following simple commands after painful stimuli. No motor deficit. No sensory deficit. Moving all extermities. Medications Administered Discontinued Medications Generic Name Dose Route Start Last Admin Trade Name Freq PRN Reason Stop Dose Admin Sodium Chloride 1,000 mls @ 999 mls/hr 09/05/23 15:15 09/05/23 18:04 Ns IV 09/05/23 16:15 Infused .Q1H1M TAMARA Infusion Sodium Chloride 2,130 mls @ 2,130 mls/hr 09/05/23 17:41 09/05/23 21:23 Ns 30 ml/kg infuse over 1 hr (2130 ml) 09/05/23 18:40 Infused IV Infusion .Q1H STA Levofloxacin 500 mg in 100 mls @ 100 mls/hr 09/05/23 18:51 09/05/23 20:21 Levaquin IV 09/05/23 19:50 Infused ONCE ONE Infusion Medical Decision Making Medical Decision Making [facility] Narrative: Patient presented today with lethargy weakness. Question took 2 oxy per family. Patient however did not look opioid overdose. Pupils were not pinpoint. Patient was breathing spontaneously was somewhat lethargic. Very slow to respond. But localizes to pain. Patient's sugar was normal there is no evidence for hypoglycemia. CT scan of the head and C-spine were negative. There has no evidence for bleeding there is no evidence for fracture there is no evidence for traumatic injury of the neck. Patient's aspirin and Tylenol levels were negative there is no evidence for overdose. Patient did not give us a urine. Had a low blood pressure. We gave patient 30 cc/kilos IV fluids. Two nurses attempted to obtain a urine unfortunately patient very combative did not want to give a urine sample did not want to be cath. we were unsuccessful to obtain the urine. Nevertheless cultures were obtained. Lactate was normal. Blood pressure came up to 105/70. Lethargy became less. Although patient is still very slow to respond. Will admit patient overnight for observation. Question postictal state she denies any suicidal homicidal ideations. She claims compliance with her medications including Keppra 1000 mg twice a day. Her VBG showed no CO2 retention. There is no evidence for infection. No evidence for sepsis. Differential Diagnosis Differential Diagnoses: The differential diagnosis associated with the presentation includes Elevated CO2, hypoglycemia, intracranial bleed, mass, electrolyte disturbance Consult Healthcare Provider Management of the patient was discussed with: Hospitalist Lab Data [facility] Lab Attestation statement: I reviewed the patient's lab results. 09/05/23 15:35 09/05/23 15:35 Labs: Lab Results 09/05/23 09/05/23 09/05/23 Range/Units 15:15 15:35 15:38 WBC 5.2 (4.8-10.8) X10*3/uL RBC 4.10 L (4.20-5.50) X10*6/uL Hgb 13.1 (12.0-16.0) g/dl Hct 40.5 (37.0-47.0) % MCV 98.8 H (80.0-98.0) fL MCH 32.0 (27.0-33.0) pg MCHC 32.3 (31.0-35.0) g/dl RDW 12.0 (11.0-16.0) % Plt Count 156 L (160-400) X10*3/uL MPV 10.3 (9.4-12.3) fL Immature Gran % (Auto) 0.4 (0.0-0.4) % Neut % (Auto) 63.7 (45-73) % Lymph % (Auto) 27.5 (20-40) % Johnston % (Auto) 8.4 (2-11) % Eos % (Auto) 0.0 (0-4) % Baso % (Auto) 0.0 (0-2) % Lymph # (Auto) 1.4 (1.2-4.9) X10*3/uL Johnston # (Auto) 0.4 (0.1-1.2) X10*3/uL Eos # (Auto) 0.0 (0.0-0.4) X10*3/uL Baso # (Auto) 0.0 (0.0-0.2) X10*3/uL Abs Immat Gran (auto) 0.02 (0.00-0.03) X10*3/uL Absolute Neuts (auto) 3.3 (2.0-8.3) x10*3/uL Absolute Nucleated RBC 0.000 (0.0-0.012) X10*3/uL Nucleated RBC % (auto) 0.0 (0.0-0.2) /100WBC ESR 16 (0-20) MM/HR VBG pH 7.36 (7.32-7.43) VBG pCO2 51 mmHg VBG pO2 47 mmHg VBG HCO3 29 H (22-26) mmol/L VBG O2 Saturation 69.0 % VBG Base Excess 2.8 mmol/L Sodium 144 (135-145) mmol/L Potassium 4.2 (3.3-5.1) mmol/L Chloride 109 H (96-108) mmol/L Carbon Dioxide 27 (22-29) mmol/L Anion Gap 12 (12-20) BUN 28 H (9-16) mg/dL Creatinine 1.29 (0.5-1.4) mg/dL Estim Creat Clear Calc 46.9 Estimated GFR 42 POC Glucose 75 (60-115) mg/dL Random Glucose 84 (60-115) mg/dL Lactic Acid (0.5-2.0) mmol/L Calcium 9.1 (8.4-10.2) mg/dL Magnesium 2.3 (1.6-2.6) mg/dL Total Bilirubin 0.5 (0.0-1.0) mg/dL Direct Bilirubin 0.2 (0.0-0.5) mg/dL AST 32 H (5-31) U/L ALT 26 (0-31) U/L Alkaline Phosphatase 116 (39-117) U/L Troponin I High Sens < 2.7 (<3.5-17.0) ng/L Total Protein 6.2 L (6.5-8.0) g/dL Albumin 3.8 (3.5-5.0) g/dL Salicylates < 5.0 L (15-30) mg/dL Acetaminophen < 3 (<30) mcg/mL 09/05/23 Range/Units 18:53 WBC (4.8-10.8) X10*3/uL RBC (4.20-5.50) X10*6/uL Hgb (12.0-16.0) g/dl Hct (37.0-47.0) % MCV (80.0-98.0) fL MCH (27.0-33.0) pg MCHC (31.0-35.0) g/dl RDW (11.0-16.0) % Plt Count (160-400) X10*3/uL MPV (9.4-12.3) fL Immature Gran % (Auto) (0.0-0.4) % Neut % (Auto) (45-73) % Lymph % (Auto) (20-40) % Johnston % (Auto) (2-11) % Eos % (Auto) (0-4) % Baso % (Auto) (0-2) % Lymph # (Auto) (1.2-4.9) X10*3/uL Johnston # (Auto) (0.1-1.2) X10*3/uL Eos # (Auto) (0.0-0.4) X10*3/uL Baso # (Auto) (0.0-0.2) X10*3/uL Abs Immat Gran (auto) (0.00-0.03) X10*3/uL Absolute Neuts (auto) (2.0-8.3) x10*3/uL Absolute Nucleated RBC (0.0-0.012) X10*3/uL Nucleated RBC % (auto) (0.0-0.2) /100WBC ESR (0-20) MM/HR VBG pH (7.32-7.43) VBG pCO2 mmHg VBG pO2 mmHg VBG HCO3 (22-26) mmol/L VBG O2 Saturation % VBG Base Excess mmol/L Sodium (135-145) mmol/L Potassium (3.3-5.1) mmol/L Chloride (96-108) mmol/L Carbon Dioxide (22-29) mmol/L Anion Gap (12-20) BUN (9-16) mg/dL Creatinine (0.5-1.4) mg/dL Estim Creat Clear Calc Estimated GFR POC Glucose (60-115) mg/dL Random Glucose (60-115) mg/dL Lactic Acid 1.7 (0.5-2.0) mmol/L Calcium (8.4-10.2) mg/dL Magnesium (1.6-2.6) mg/dL Total Bilirubin (0.0-1.0) mg/dL Direct Bilirubin (0.0-0.5) mg/dL AST (5-31) U/L ALT (0-31) U/L Alkaline Phosphatase (39-117) U/L Troponin I High Sens (<3.5-17.0) ng/L Total Protein (6.5-8.0) g/dL Albumin (3.5-5.0) g/dL Salicylates (15-30) mg/dL Acetaminophen (<30) mcg/mL Independent Interpretation I performed an independent interpretation of an: EKG (Sinus pattern heart rate is 50 GA QRS QTC normal there has no acute ST segment elevation) and CT Scan (CT scan of the head was grossly negative) Radiology Impression Discussion of test interpretation with radiology: I have reviewed the radiologist's reading. External Record Review External record reviewed: Inpatient record Chronic Conditions Seizure Social Determinants Patient?s care significantly limited by Social Determinants of Health including: Problems related to primary support group Critical Care Time Critical Care Time Critical Care Time: Yes Total Critical Care Time: 40 Attestation: I have personally provided 40 minutes of critical care time exclusive of time spent on separately billable procedures. ?Time includes review of lab data, radiology results, discussion with consultants, and monitoring for potential decompensation. ?Interventions were performed as documented above Discharge Plan Discharge Clinical Impression: Altered mental state Patient Disposition: Admitted As Inpatient Prescriptions: No Action bumetanide 0.5 mg tablet 0.5 mg PO BID 30 Days Qty: 60 5RF ondansetron HCl 8 mg tablet 1 tab PO TID PRN (Reason: nausea/vomiting) albuterol sulfate 90 mcg/actuation HFA aerosol inhaler 2 puff PO Q6H PRN (Reason: wheezing) loperamide 2 mg capsule 2 mg PO Q4H PRN (Reason: diarrhea) multivitamin Tablet 1 tab PO DAILY cetirizine 10 mg tablet 10 mg PO DAILY sumatriptan succinate 100 mg tablet 100 mg PO DAILY PRN (Reason: Migraine Headache) omeprazole 20 mg capsule,delayed release(DR/EC) 20 mg PO DAILY epinephrine 0.3 mg/0.3 mL auto-injector 0.3 mg IM ONCE levetiracetam 1,000 mg tablet 1,000 mg PO BID olanzapine 2.5 mg tablet 2.5 mg PO BID 30 Days Qty: 60 0RF Rx Instructions: take 1 tablet po daily in AM and 1 tablet po daily in afternoon - hold for sedation duloxetine 60 mg capsule,delayed release(DR/EC) 60 mg PO BID Qty: 60 0RF clonazepam 0.5 mg tablet 0.5 mg PO BID PRN (Reason: anxiety) midodrine 2.5 mg tablet 2.5 mg PO BID 30 Days Qty: 60 3RF Rx Instructions: do not give last dose of day after 6PM or within 4 hrs of bedtime bumetanide 0.5 mg tablet 2 mg PO DAILY PRN olanzapine 5 mg tablet 5 mg PO BEDTIME oxycodone 10 mg tablet 10 mg PO cephalexin 500 mg capsule 500 mg PO QID
[2023-09-05] MEDS: 0.9 % Sodium Chloride 1,000 ML 999 ML IV (15:36)
[2023-09-05 15:39] LABS: MANUAL DIFF FLAG NO
[2023-09-05 15:44] LABS: VBG Base Excess 2.8 mmol/L; VBG HCO3 29 mmol/L (22-26); VBG pCO2 51 mmHg; VBG pH 7.36 (7.32-7.43); VBG pO2 47 mmHg
[2023-09-05 15:46] LABS: Hematocrit 40.5 % (37.0-47.0); Hemoglobin 13.1 g/dl (12.0-16.0); Imm Gran Abs Auto 0.02 X10*3/uL (0.00-0.03); Imm Gran Pct Auto 0.4 % (0.0-0.4); Lymphocytes Absolute Auto 1.4 X10*3/uL (1.2-4.9); Lymphocytes Percent Auto 27.5 % (20-40); Mean Corpuscular HGB Conc 32.3 g/dl (31.0-35.0); Mean Corpuscular Volume 98.8 fL (80.0-98.0); Mean Platelet Volume 10.3 fL (9.4-12.3); Monocytes Absolute Auto 0.4 X10*3/uL (0.1-1.2); Monocytes Percent Auto 8.4 % (2-11); Neutrophils Absolute Auto 3.3 x10*3/uL (2.0-8.3); Neutrophils Percent Auto 63.7 % (45-73); Platelet Count 156 X10*3/uL (160-400); White Blood Count 5.2 X10*3/uL (4.8-10.8)
[2023-09-05 15:49] LABS: Venous Blood Gas Refer to POC result
[2023-09-05 15:57] LABS: Acetaminophen LAB < 3 mcg/mL (<30); Alanine Aminotransferase 26 U/L (0-31); Albumin Level 3.8 g/dL (3.5-5.0); Alkaline Phosphatase 116 U/L (39-117); Aspartate Amino Transferase 32 U/L (5-31); Bilirubin Direct 0.2 mg/dL (0.0-0.5); Bilirubin Total 0.5 mg/dL (0.0-1.0); Calcium 9.1 mg/dL (8.4-10.2); Magnesium 2.3 mg/dL (1.6-2.6); Salicylate < 5.0 mg/dL (15-30); Total Protein 6.2 g/dL (6.5-8.0)
--- NOTE | 2023-09-05 16:04 | PC.NURSE ---
Son called: reports that pt was acting confused this morning and then they found her unresponsive on the couch so they called for EMS. Son reports 2 oxy and 1 clonazepam were missing from her med box today. Son reports that pt has taken 2 oxy in the past and this has never happened before. Family unsure if she had a seizure.
[2023-09-05 16:05] LABS: Troponin-I High Sensitivity < 2.7 ng/L (<3.5-17.0)
[2023-09-05 16:27] LABS: Erythrocyte Sedimentation Rate 16 MM/HR (0-20)
--- NOTE | 2023-09-05 17:16 | PC.NURSE ---
Pt taken to CT scan.
[2023-09-05 17:51] LABS: Anion Gap 12 (12-20)
[2023-09-05 17:53] LABS: Blood Urea Nitrogen 28 mg/dL (9-16); Carbon Dioxide 27 mmol/L (22-29); Chloride 109 mmol/L (96-108); Creatinine Clr Calc Pharmacy 46.9; Estimated Glomerular Filt Rate 42; Glucose Random 84 mg/dL (60-115); Potassium 4.2 mmol/L (3.3-5.1); Sodium 144 mmol/L (135-145)
--- NOTE | 2023-09-05 18:34 | PC.NURSE ---
Attempted to obtain cultures, and straight cath for urine, pt started rolling aruond dislodging 2 needles, 1 set of cultures obtained, this RN/another RN/tech attempted straight cath, however patient began screaming, clamping legs closed, staff attempted multiple times, but patient began kicking, and rolling around. Provider aware of attempts/ Per provider, give patient a chance to calm down, attempted getting lactic, if unable to obtain second set of cultures provider okay, and to attempt straight cath again to obtain urine.
[2023-09-05 19:10] LABS: Lactic Acid 1.7 mmol/L (0.5-2.0)
[2023-09-05] MEDS: levoFLOXacin/D5W 500 MG/100 ML PIGGYBACK 100 MG IV (19:21)
--- NOTE | 2023-09-05 19:23 | PC.NURSE ---
report received from previous RN pt not meeting sepsis criteria at this time, upon care of pt provider made aware of blood pressure.per provider pt does not meet sepsis criteria at this time. pt afebrile nsr on monitor.
--- NOTE | 2023-09-05 19:23 | PC.NURSE ---
this rn assumed care of pt. pt alert to touch at this time. Provider aware of antibiotic administration after failed attempts on blood cultures, one set obtained. pt unable to provider urine sample at this time, pt clamping legs closed when touched. provoder aware at this time. provider aware of blood pressure.
--- NOTE | 2023-09-05 21:23 | PC.NURSE ---
pt removed both IV access at this time, pt bed linens changed, pt repositioned in bed.
--- NOTE | 2023-09-05 21:24 | PC.NURSE ---
late entry-pt non compliant with care at this time, pt removing tele leads and blood pressure cuff. attempts to reobtain iv access at this time.
--- NOTE | 2023-09-05 21:36 | PC.NURSE ---
camera placed for pt safety at this time.
--- NOTE | 2023-09-05 21:43 | P.HPHOSP_ITS ---
History of Present Illness Date of Service: 09/05/23 Attending physician on admission: Ambar Charles Chief Complaint: ams 58-year-old female with history of epileptic seizure disorder, migraines, history of breast cancer, GERD, bipolar disorder, opiate dependence on oxycodone, chronic pain syndrome, CKD stage 3 presented to the ED earlier today via EMS due to altered mental status. Patient is very tearful and is a limited historian. Discussed with patient's son, Jeronimo, with whom she lives who reports that upon waking this morning the patient seemed confused and questioned whether she was postictal. However, denies witnessing any seizure events. He states her medications are managed by [facility] and she received medication sleeve this morning. He did check medications sleeve and reports 2 tablets of oxycodone and clonazepam were missing. He denies any knowledge of any other controlled substance or illicit substance use currently but does have a history of abusing other's controlled substances including her son's. Since arrival, patient has been hypotension with sbp in the 80s improved to 114/72 on admission with IVF though patient does remain encephalopathic. HR also initially low in the high 40s, improved to 86 on admission. No leukocytosis. Renal function baseline, electrolyte levels normal. Lactic acid 1.7. Troponin below detectable limits. VBG reassuring with pH 7.36, pCO2 51, bicarb 29. Acetaminophen and salicylate levels but low detectable limit. Urine tox screen and UA/UC ordered and pending, patient refusing urine at this time. CXR negative for any acute cardiopulmonary abnormality. Head CT negative for any acute intracranial pathology. CT cervical spine negative for any acute osseous abnormality but shows moderate to severe central canal stenosis and mild anterolisthesis at the C3-4 level. In the ED, given 2.1L IVF and empirically treated with 500mg levaquin. Review of Systems 2 Review of Systems: Yes Unobtainable due to mental status [facility] Medical History Orthostatic hypotension Seizure disorder History of prolonged Q-T interval on ECG Psychogenic nonepileptic seizure CKD (chronic kidney disease) stage 3, GFR 30-59 ml/min COPD (chronic obstructive pulmonary disease) GERD (gastroesophageal reflux disease) Port-A-Cath in place Malabsorption Compression fracture of C3 vertebra Self-catheterizes urinary bladder Neuropathy SIADH (syndrome of inappropriate ADH production) Chronic anemia Enlarged liver Enlarged heart History of atrial fibrillation Polysubstance abuse Von Willebrand disease Factor V deficiency Depression Uterine cancer Breast cancer Migraines Asthma Seizure Surgical History H/O knee surgery Hx of cholecystectomy History of hysterectomy H/O gastric bypass Social History Household Members: Children Unable to assess alcohol history related to: Unknown Alcohol intake: unknown Patient Tobacco Use Status: Current someday Tobacco user Tobacco use type: Cigarette Use of substances other than those prescribed or required for medical reasons: Unable to respond Advance Directives: No Advance Directives Information Provided: No Meds Allergies Allergy/AdvReac Type Severity Reaction Status Date / Time bee pollen [Bee Stings] Allergy Mild ANAPHYLAXIS Verified 08/03/23 09:44 codeine [Codeine] Allergy Mild ANAPHYLAXIS Verified 08/03/23 09:44 Penicillins Allergy Mild UNKNOWN Verified 08/03/23 09:44 aspirin [ASA] Allergy Unknown Verified 08/03/23 09:44 ciprofloxacin [From Cipro] Allergy Rash Verified 08/03/23 09:44 Iodinated Contrast Media Allergy Hives Verified 08/03/23 09:44 [Contrast Dye] latex Allergy Rash Verified 08/03/23 09:44 macadamia nut Allergy Anaphylaxis Verified 08/03/23 09:44 Sulfa (Sulfonamide Allergy Anaphylaxis Verified 08/03/23 09:44 Antibiotics) sulfamethoxazole Allergy Anaphylaxis Verified 08/03/23 09:44 [From Bactrim] trimethoprim [From Bactrim] Allergy Anaphylaxis Verified 08/03/23 09:44 bee stings Allergy Unknown anaphylaxis Uncoded 09/02/11 00:00 Codeine Phosphate Allergy Unknown stomach Uncoded 09/02/11 00:00 upset Penicillin Allergy Unknown anaphylaxis Uncoded 09/02/11 00:00 Active Medications: Current Medications Acetaminophen (Acetaminophen 325 Mg Tablet) 650 mg PO Q6H PRN PRN Reason: Pain, Mild (Pain Scale 1-3) Enoxaparin Sodium (Enoxaparin Sodium 40 Mg/0.4 Ml Syringe) 40 mg SUBCUT Q24H TAMARA Sodium Chloride (Ns) 1,000 mls @ 100 mls/hr IVCONT .Q10H TAMARA Ondansetron HCl (Ondansetron Hcl 4 Mg/2 Ml Vial) 4 mg IVPUSH Q8H PRN PRN Reason: Nausea and Vomiting Senna (Sennosides 8.6 Mg Tablet) 17.2 mg PO BEDTIME PRN PRN Reason: Constipation Sodium Chloride (0.9 % Sodium Chloride Flush 3 Ml Syringe) 3 [facility] Medications Medication Instructions Recorded Confirmed Last Taken Type albuterol sulfate 90 mcg/actuation 2 puff PO Q6H PRN wheezing 01/29/21 04/28/23 Unknown History aerosol inhaler ondansetron HCl 8 mg tablet 1 tab PO TID PRN nausea/vomiting 01/29/21 04/28/23 04/28/23 06:30 History cetirizine 10 mg tablet 10 mg PO DAILY 04/28/23 04/28/23 04/28/23 06:30 History epinephrine 0.3 mg/0.3 mL 0.3 mg IM ONCE anaphylaxis 04/28/23 04/28/23 Unknown History injection, auto-injector levetiracetam 1,000 mg tablet 1,000 mg PO BID 04/28/23 04/28/23 04/28/23 06:30 History loperamide 2 mg capsule 2 mg PO Q4H PRN diarrhea 04/28/23 04/28/23 04/28/23 06:30 History multivitamin 1 tab PO DAILY 04/28/23 04/28/23 04/28/23 06:30 History omeprazole 20 mg capsule,delayed 20 mg PO DAILY 04/28/23 04/28/23 04/28/23 06:30 History release sumatriptan succinate 100 mg tablet 100 mg PO DAILY PRN Migraine 04/28/23 04/28/23 Unknown History Headache clonazepam 0.5 mg tablet 0.5 mg PO BID PRN anxiety 06/01/23 Unknown History bumetanide 0.5 mg tablet 2 mg PO DAILY PRN 08/03/23 Unknown History cephalexin 500 mg capsule 500 mg PO QID 08/03/23 Unknown History olanzapine 5 mg tablet 5 mg PO BEDTIME 08/03/23 Unknown History oxycodone 10 mg tablet 10 mg PO 08/03/23 Unknown History Physical Exam 2 Vital Signs and Narrative: Vital Signs: Last Vital Signs Temp 98.6 F 09/05/23 19:24 Pulse 60 09/05/23 19:24 Resp 15 09/05/23 19:24 BP 95/59 L 09/05/23 19:24 Pulse Ox 99 09/05/23 19:24 O2 Del Method Room Air 09/05/23 19:24 BMI result Body Mass Index 26.0 Constitutional - Awake and Alert, No apparent distress Eyes - PERRLA Cardiovascular - S1S2, RRR, No edema Respiratory - Normal lung expansion, Normal respiratory effort, No respiratory distress, CTA bilaterally Gastrointestinal - suprapubic distention with ttp, +BS; No rebound or guarding Extremities - no calf tenderness bilaterally, no swelling Skin - Warm/Dry Neurological - Alert & oriented to self, knows she is in the hospital and whom she lives with, not participating in CN exam but PERRLA, 5/5 strength bue and ble Results Labs 09/05/23 15:35 09/05/23 15:35 Labs: Laboratory Results - last 24 hr 09/05/23 09/05/23 09/05/23 15:15 15:35 15:38 MCV 98.8 H MCH 32.0 MCHC 32.3 RDW 12.0 Plt Count 156 L MPV 10.3 Immature Gran % (Auto) 0.4 Neut % (Auto) 63.7 Lymph % (Auto) 27.5 [place] % (Auto) 8.4 Eos % (Auto) 0.0 Baso % (Auto) 0.0 Lymph # (Auto) 1.4 [place] # (Auto) 0.4 Eos # (Auto) 0.0 Baso # (Auto) 0.0 Abs Immat Gran (auto) 0.02 Absolute Neuts (auto) 3.3 Absolute Nucleated RBC 0.000 Nucleated RBC % (auto) 0.0 ESR 16 VBG pH 7.36 VBG pCO2 51 VBG pO2 47 VBG HCO3 29 H VBG O2 Saturation 69.0 VBG Base Excess 2.8 Anion Gap 12 Estim Creat Clear Calc 46.9 Estimated GFR 42 POC Glucose 75 Random Glucose 84 Lactic Acid Calcium 9.1 Magnesium 2.3 Total Bilirubin 0.5 Direct Bilirubin 0.2 AST 32 H ALT 26 Alkaline Phosphatase 116 Troponin I High Sens < 2.7 Total Protein 6.2 L Albumin 3.8 Salicylates < 5.0 L Acetaminophen < 3 09/05/23 18:53 MCV MCH MCHC RDW Plt Count MPV Immature Gran % (Auto) Neut % (Auto) Lymph % (Auto) [place] % (Auto) Eos % (Auto) Baso % (Auto) Lymph # (Auto) [place] # (Auto) Eos # (Auto) Baso # (Auto) Abs Immat Gran (auto) Absolute Neuts (auto) Absolute Nucleated RBC Nucleated RBC % (auto) ESR VBG pH VBG pCO2 VBG pO2 VBG HCO3 VBG O2 Saturation VBG Base Excess Anion Gap Estim Creat Clear Calc Estimated GFR POC Glucose Random Glucose Lactic Acid 1.7 Calcium Magnesium Total Bilirubin Direct Bilirubin AST ALT Alkaline Phosphatase Troponin I High Sens Total Protein Albumin Salicylates Acetaminophen Imaging Radiologist's Impressions: Impressions Chest X-Ray 09/05/23 16:24 IMPRESSION: No acute cardiopulmonary findings. Cervical Spine CT 09/05/23 17:49 IMPRESSION: 1. No acute intracranial pathology. 2. No evidence of acute cervical spine traumatic injury. Moderate to severe central canal stenosis and mild anterolisthesis at the C3-C4 level; correlate for any myelopathic symptoms. Moderate spondylitic changes at the C5-C6 and C6-C7 levels. Head CT 09/05/23 17:49 IMPRESSION: 1. No acute intracranial pathology. 2. No evidence of acute cervical spine traumatic injury. Moderate to severe central canal stenosis and mild anterolisthesis at the C3-C4 level; correlate for any myelopathic symptoms. Moderate spondylitic changes at the C5-C6 and C6-C7 levels. Assessment and Plan (1) Altered mental state: Status: Acute (2) Hypotension: Status: Acute Plan 58-year-old female with history of epileptic seizure disorder, migraines, history of breast cancer, GERD, bipolar disorder, opiate dependence on oxycodone, chronic pain syndrome, copd, CKD stage 3 admitted for acute toxic metabolic encephalopathy and hypotension # acute toxic metabolic encephalopathy -likely secondary to medication use including oxycodone and clonazepam. Reportedly took 2 oxycodone (20mg total and clonazepam prior to worsening ams per son) -head CT negative for acute intracranial abnormality. No evidence of infection at this time, though ua/uc remains pending due to pt refusal, but no sepsis/sirs -urine tox screen pending -Hold sedating medications -monitor mentation #Acute hypotension- resolved on admission following IVF -likely 2/2 narcotic/benzo coadministration/possible OD, less likely seizure. No sepsis/or other sirs criteria #Continue IVF -continue midodrine -montior bp closely #Epileptic seizure disorder -continue keppra #Bipolar disorder -continue mood stabilizers #COPD -no acute exacerbation -albuterol p.r.n. # CKD stage 3 -renal function baseline DVT prophylaxis-Lovenox Med Rec pending Full code Patient requires inpatient stay at least 2 midnights for further management of acute toxic metabolic encephalopathy and hypotension Quality Stroke Does the patient have a stroke diagnosis?: No VTE Prior VTE?: No VTE Risk Level:: Medical - moderate - high VTE Device Contraindication: Treatment Not Indicated VTE Drug Contraindication: N/A - Med Ordered
--- NOTE | 2023-09-05 21:47 | MHC.EDTECH ---
Patient inc total bed changed and repositioned
[2023-09-05] MEDS: 0.9 % Sodium Chloride 1,000 ML 100 ML IVCONT (22:26)
--- NOTE | 2023-09-05 22:26 | PC.NURSE ---
22G placed in left upper arm.
--- NOTE | 2023-09-05 23:00 | PC.NURSE ---
pt bladder scanned for 910ML at this time, pt attempting to use bedpan.
[2023-09-05] MEDS: Midodrine HCl 2.5 MG TABLET PO (23:11)
[2023-09-05] MEDS: Enoxaparin Sodium 40 MG/0.4 ML SYRINGE SUBCUT (23:11)
[2023-09-05] MEDS: levETIRAcetam 1,000 MG TABLET 1000 MG PO (23:11)
--- NOTE | 2023-09-05 23:12 | PC.NURSE ---
pt medicated per sep, tolerated well with applesauce.
--- NOTE | 2023-09-05 23:17 | PC.NURSE ---
pt voided 800ml of yellow urine on bedside commode, urine sample obtained.
--- NOTE | 2023-09-05 23:25 | PC.NURSE ---
Assumed care of pt at 2310. Pt alert and oriented X2, groggy and slow to respond. Pt able to get up with assist and use the commode. output 800ml. urine sent to lab. pt given call pelletier and verbalized understanding of how to use. Plan of care ongoing.
[2023-09-05 23:30] LABS: Appearance Urine Clear; Color Urine Yellow; Glucose Urine UA Negative (Negative); Leukocyte Esterase Urine Moderate (2+) (Negative); Nitrite Urine Negative (Negative); PH 5.5 (5.0-9.0); UMIC TRIGGER UACC YES; Urine Blood Trace (Negative); Urine Ketones Negative (Negative); Urine Protein Negative (Neg-Trace)
[2023-09-05 23:32] LABS: Bacteria Urine None Seen (None Seen); Squamous Epithelial Cell Urine 0-2 /HPF (0-2); UACC Culture Trigger YES
[2023-09-05 23:42] LABS: Amphetamine Screen Urine Not Detected (Not Detect); Barbiturates, Urine Not Detected (Not Detect); Benzodiazepines Screen Urine Not Detected (Not Detect); Cannabinoid Screen Urine Not Detected (Not Detect); Cocaine Screen Urine Not Detected (Not Detect); Fentanyl, urine Not Detected (Not Detect); Opiate Screen Urine Not Detected (Not Detect); Phencyclidine Screen Urine Not Detected (Not Detect)
--- NOTE | 2023-09-06 00:10 | PC.NURSE ---
PVR 460ml, notified. Per hold off on straight cath at this time and will continue to monitor.
[2023-09-06 04:22] VITALS: BP 141/96; PULSE 77; RESP 16; TEMP 36.3; O2SAT 98
--- NOTE | 2023-09-06 04:38 | PC.NURSE ---
This sign writer hand assumed care of this Pt at 0300. Pt A&O to self, needs prompt to answer questions. Pt one assist to bedside commode. Pt reports inablilty to void at this time. Bladder scan results >844 mL, Pt refused straight cath. Dr. Charles made aware, no new orders at this time. Plan of care on going.
[2023-09-06 05:21] LABS: MANUAL DIFF FLAG NO
[2023-09-06 05:28] LABS: Hematocrit 36.9 % (37.0-47.0); Hemoglobin 11.8 g/dl (12.0-16.0); Imm Gran Abs Auto 0.01 X10*3/uL (0.00-0.03); Imm Gran Pct Auto 0.3 % (0.0-0.4); Lymphocytes Absolute Auto 1.2 X10*3/uL (1.2-4.9); Lymphocytes Percent Auto 33.9 % (20-40); Mean Platelet Volume 10.7 fL (9.4-12.3); Monocytes Absolute Auto 0.3 X10*3/uL (0.1-1.2); Monocytes Percent Auto 9.4 % (2-11); Neutrophils Absolute Auto 2.1 x10*3/uL (2.0-8.3); Neutrophils Percent Auto 56.4 % (45-73); Platelet Count 141 X10*3/uL (160-400); Red Blood Count 3.69 X10*6/uL (4.20-5.50); White Blood Count 3.6 X10*3/uL (4.8-10.8)
[2023-09-06 05:39] LABS: Anion Gap 10 (12-20); Blood Urea Nitrogen 23 mg/dL (9-16); Calcium 8.3 mg/dL (8.4-10.2); Carbon Dioxide 24 mmol/L (22-29); Chloride 116 mmol/L (96-108); Creatinine Clr Calc Pharmacy 59.3; Estimated Glomerular Filt Rate 56; Glucose Random 85 mg/dL (60-115); Potassium 3.7 mmol/L (3.3-5.1); Sodium 146 mmol/L (135-145)
--- NOTE | 2023-09-06 06:03 | PC.NURSE ---
Pt one assist to bedside commode, Pt voided 600 mL.
[2023-09-06 06:23] VITALS: BP 121/55; PULSE 64; RESP 16; TEMP 36.4; O2SAT 100
--- NOTE | 2023-09-06 07:33 | MHC.EDTECH ---
pt was assisted to bathroom after stating she needed to make a bowel movement, rn aware
[2023-09-06] MEDS: 0.9 % Sodium Chloride 1,000 ML 100 ML IVCONT (07:46)
--- NOTE | 2023-09-06 07:46 | PC.NURSE ---
pt reports I know they think I overdosed, but I can tell how my speech is that I definitely had a seizure .
--- NOTE | 2023-09-06 08:15 | PC.NURSE ---
pt c/o migraine and back pain as well as nausea and diarrhea - tiger connect sent to Dr. Jansen requesting Imodium and home med Oxycodone 10mg.
--- NOTE | 2023-09-06 08:35 | MHC.EDTECH ---
pt was 1 assisted to bathroom in attempts to void stool
--- NOTE | 2023-09-06 09:37 | PHA.MEDREC ---
Pharmacy Consult ? Medication Reconciliation Pharmacy has completed the medication reconciliation. Called patients Son Jeronimo who said he gave a list to the excellence specialist, however it looks like the excellence specialist did not give us this list. I went to change patients room for the list when the patient asked me what I was looking for. I explained the situation and she said she could name her medications. Although patient is here for AMS she was an excellent historian. Patient knew her medications, doses, frequencies and indications without any guidance. OF NOTE: patient says she grazes instead of taking meals and will take her omeprazole 3 to 4 times a day depending on her grazing (patient has gastic sleeve). She also states she takes loperamide TAMARA and not PRN as she consistently has diarrhea. She also stated she takes her zofran every day about three times a day also depending on her grazing
--- NOTE | 2023-09-06 09:57 | MHC.EDTECH ---
pt was assisted to bathroom to void stool
[2023-09-06] MEDS: oxyCODONE HCl Immed Release 5 MG TABLET 10 MG PO ×2 (10:04→16:50)
[2023-09-06] MEDS: ondansetron HCL 4 MG/2 ML VIAL IVPUSH ×2 (10:05→20:15)
[2023-09-06] MEDS: levETIRAcetam 1,000 MG TABLET 1000 MG PO ×2 (10:05→20:18)
[2023-09-06 10:08] VITALS: BP 131/81; PULSE 66; RESP 16; TEMP 36.6; O2SAT 100
--- NOTE | 2023-09-06 10:37 | PC.NURSE ---
called pharmacy for med not available in pyxis
--- NOTE | 2023-09-06 10:38 | PC.NURSE ---
pts RR soft 9-11RR/min, pt resting comfortably in bed, awake and talking with this RN - pt in NAD. O2 on RA 97%
[2023-09-06] MEDS: Midodrine HCl 2.5 MG TABLET PO ×2 (11:02→20:18)
[2023-09-06] MEDS: Loperamide HCl 2 MG CAPSULE PO ×3 (13:23→20:18)
[2023-09-06] MEDS: DULoxetine HCl 60 MG CAPSULE.DR PO ×2 (13:23→20:18)
--- NOTE | 2023-09-06 13:32 | HO.PM.IMPN ---
Subjective Subjective Date of Service: 09/06/23 Interval History: Feeling better awake alert answering questions appropriately but feels not completely back to baseline complaining of right-sided headache,, back pain, knee pain, asking for oxycodone, feels that she might had a seizure that caused confusion, no nausea, no vomiting, no lightheadedness, no dizziness. Review of Systems All other system reviewed and negative. Physical Exam Vital Signs: Vital Signs: Last Vital Signs Temp 97.9 F 09/06/23 10:08 Pulse 66 09/06/23 10:08 Resp 16 09/06/23 10:08 BP 131/81 09/06/23 10:08 Pulse Ox 100 09/06/23 10:08 O2 Del Method Room Air 09/06/23 10:08 BMI result Body Mass Index 26.0 Const: Other: General awake alert x3, in no acute distress. Neck supple no JVD. CVS regular rate rhythm, Respiratory lungs clear to auscultation, no respiratory distress, no wheeze, no rhonchi. Gastrointestinal abdomen soft, non tender, bowel sounds audible, no no guarding , no rigidity. Extremities no edema. Neuro non focal Skin no rash Psych appropriate affect Objective Data Active Medications Acetaminophen (Acetaminophen 325 Mg Tablet) 650 mg PO Q6H PRN PRN Reason: Pain, Mild (Pain Scale 1-3) Albuterol Sulfate (Albuterol Sulfate 90 Mcg 8 Gm Inhaler) 1 puff INHALE RQ4H PRN PRN Reason: dyspnea Bumetanide (Bumetanide 1 Mg Tablet) 0.5 mg PO BID [facility]; Protocol Clonazepam (Clonazepam 0.5 Mg Tablet) 0.5 mg PO BID PRN PRN Reason: anxiety Duloxetine HCl (Duloxetine Hcl 60 Mg Capsule.Dr) 60 mg PO BID [facility] Last Admin: 09/06/23 13:23 Dose: 60 mg Documented By: EMMA Enoxaparin Sodium (Enoxaparin Sodium 40 Mg/0.4 Ml Syringe) 40 mg SUBCUT Q24H [facility] Last Admin: 09/05/23 23:11 Dose: 40 mg Documented By: ROC Levetiracetam (Levetiracetam 1,000 Mg Tablet) 1,000 mg PO BID [facility] Last Admin: 09/06/23 10:05 Dose: 1,000 mg Documented By: EMMA Loperamide HCl (Loperamide Hcl 2 Mg Capsule) 2 mg PO QID [facility] Last Admin: 09/06/23 13:23 Dose: 2 mg Documented By: EMMA Midodrine (Midodrine Hcl 2.5 Mg Tablet) 2.5 mg PO BID [facility] Last Admin: 09/06/23 11:02 Dose: 2.5 mg Documented By: EMMA Montelukast Sodium (Montelukast Sodium 10 Mg Tablet) 10 mg PO DAILY [facility] Multivitamins/Vitamin C (Multivitamin Tablet) 1 tab PO DAILY [facility] Olanzapine (Olanzapine 2.5 Mg Tablet) 2.5 mg PO TID [facility] Olanzapine (Olanzapine 5 Mg Tablet) 5 mg PO BEDTIME [facility] Ondansetron HCl (Ondansetron Hcl 4 Mg/2 Ml Vial) 4 mg IVPUSH Q8H PRN PRN Reason: Nausea and Vomiting Last Admin: 09/06/23 10:05 Dose: 4 mg Documented By: EMMA Oxycodone HCl (Oxycodone Hcl Immed Release 5 Mg Tablet) 10 mg PO Q6H PRN PRN Reason: Pain, Moderate(Pain Scale 4-6) Last Admin: 09/06/23 10:04 Dose: 10 mg Documented By: EMMA Senna (Sennosides 8.6 Mg Tablet) 17.2 mg PO BEDTIME PRN PRN Reason: Constipation Sodium Chloride (0.9 % Sodium Chloride Flush 3 Ml Syringe) 3 ml IVFLUSH QSHIFT [facility] Last Admin: 09/06/23 07:46 Dose: Not Given Documented By: EMMA Non-Admin Reason: IV Running Sumatriptan Succinate (Sumatriptan Succinate 100 Mg Tablet) 100 mg PO DAILY PRN PRN Reason: Migraine Headache Labs 09/06/23 04:46 09/06/23 04:46 Labs: Laboratory Results - last 24 hr 09/05/23 09/05/23 09/05/23 15:15 15:35 15:38 MCV 98.8 H MCH 32.0 MCHC 32.3 RDW 12.0 Plt Count 156 L MPV 10.3 Immature Gran % (Auto) 0.4 Neut % (Auto) 63.7 Lymph % (Auto) 27.5 [place] % (Auto) 8.4 Eos % (Auto) 0.0 Baso % (Auto) 0.0 Lymph # (Auto) 1.4 [place] # (Auto) 0.4 Eos # (Auto) 0.0 Baso # (Auto) 0.0 Abs Immat Gran (auto) 0.02 Absolute Neuts (auto) 3.3 Absolute Nucleated RBC 0.000 Nucleated RBC % (auto) 0.0 ESR 16 VBG pH 7.36 VBG pCO2 51 VBG pO2 47 VBG HCO3 29 H VBG O2 Saturation 69.0 VBG Base Excess 2.8 Anion Gap 12 Estim Creat Clear Calc 46.9 Estimated GFR 42 POC Glucose 75 Random Glucose 84 Lactic Acid Calcium 9.1 Magnesium 2.3 Total Bilirubin 0.5 Direct Bilirubin 0.2 AST 32 H ALT 26 Alkaline Phosphatase 116 Troponin I High Sens < 2.7 Total Protein 6.2 L Albumin 3.8 Urine Color Urine Appearance Urine pH Ur Specific [place] Urine Protein Urine Glucose (UA) Urine Ketones Urine Blood Urine Nitrite Ur Leukocyte Esterase Urine RBC Urine WBC Ur Squamous Epith Cells Urine Bacteria Hyaline Casts Salicylates < 5.0 L Urine Opiates Screen Urine Fentanyl Screen Acetaminophen < 3 Ur Barbiturates Screen Ur Phencyclidine Scrn Ur Amphetamines Screen U Benzodiazepines Scrn Urine Cocaine Screen U Marijuana (THC) Screen 09/05/23 09/05/23 09/06/23 18:53 23:19 04:46 MCV 100.0 H MCH 32.0 MCHC 32.0 RDW 12.0 Plt Count 141 L MPV 10.7 Immature Gran % (Auto) 0.3 Neut % (Auto) 56.4 Lymph % (Auto) 33.9 [place] % (Auto) 9.4 Eos % (Auto) 0.0 Baso % (Auto) 0.0 Lymph # (Auto) 1.2 [place] # (Auto) 0.3 Eos # (Auto) 0.0 Baso # (Auto) 0.0 Abs Immat Gran (auto) 0.01 Absolute Neuts (auto) 2.1 Absolute Nucleated RBC 0.000 Nucleated RBC % (auto) 0.0 ESR VBG pH VBG pCO2 VBG pO2 VBG HCO3 VBG O2 Saturation VBG Base Excess Anion Gap 10 L Estim Creat Clear Calc 59.3 Estimated GFR 56 POC Glucose Random Glucose 85 Lactic Acid 1.7 Calcium 8.3 L D Magnesium Total Bilirubin Direct Bilirubin AST ALT Alkaline Phosphatase Troponin I High Sens Total Protein Albumin Urine Color Yellow Urine Appearance Clear Urine pH 5.5 Ur Specific [place] 1.010 Urine Protein Negative Urine Glucose (UA) Negative Urine Ketones Negative Urine Blood Trace H Urine Nitrite Negative Ur Leukocyte Esterase Moderate (2+) H Urine RBC 3-5 H Urine WBC 6-10 H Ur Squamous Epith Cells 0-2 Urine Bacteria None Seen Hyaline Casts 3-5 Salicylates Urine Opiates Screen Not Detected Urine Fentanyl Screen Not Detected Acetaminophen Ur Barbiturates Screen Not Detected Ur Phencyclidine Scrn Not Detected Ur Amphetamines Screen Not Detected U Benzodiazepines Scrn Not Detected Urine Cocaine Screen Not Detected U Marijuana (THC) Screen Not Detected Assessment and Plan (1) Hypotension: Status: Acute (2) Altered mental state: Status: Acute (3) CKD (chronic kidney disease) stage 3, GFR 30-59 ml/min: Status: Acute Plan 58-year-old female with history of epileptic seizure disorder, migraines, history of breast cancer, GERD, bipolar disorder, opiate dependence on oxycodone, chronic pain syndrome, copd, CKD stage 3 admitted for acute toxic metabolic encephalopathy and hypotension # acute toxic metabolic encephalopathy -resolved patient awake alert answering questions appropriately, but still feels not at her baseline. Symptoms likely secondary to medication use including oxycodone and clonazepam. Reportedly took 2 oxycodone (20mg total and clonazepam prior to worsening ams per son) But as per patient she feels she might had a seizure. -head CT negative for acute intracranial abnormality. No evidence of infection at this time,UA neg,no sepsis/sirs -urine tox screen neg. -no seizure-like activity noted continue antiepileptics # mild acute hypernatremia and hyperchloremia due to IV normal saline recommend by mouth fluids monitor BMP #Acute hypotension- resolved on admission following IVF -likely 2/2 narcotic/benzo coadministration, and being on diuretics, No sepsis/or other sirs criteria -continue midodrine -montior bp closely # chronic pain/history of migraine resume home dose of oxycodone and Imitrex. #Epileptic seizure disorder -continue keppra, seizure precautions, no seizure-like activity noted since admission. #Bipolar disorder -resume mood stabilizers #COPD -no acute exacerbation, continue albuterol p.r.n. # CKD stage 3 -renal function baseline DVT prophylaxis-Lovenox Full code Patient requires continued hospitalization for further management of acute toxic metabolic encephalopathy and hypotension. Quality Stroke Does the patient have a stroke diagnosis?: No VTE Prior VTE?: No VTE Risk Level:: Medical - moderate - high VTE Device Contraindication: Treatment Not Indicated VTE Drug Contraindication: N/A - Med Ordered
[2023-09-06 14:04] VITALS: BP 157/94; PULSE 70; RESP 18; TEMP 37; O2SAT 96
--- NOTE | 2023-09-06 14:25 | MHC.CM.PN ---
IMM 09/06/23, Pt lives with her son, she has 41 hours of TELECOMMUNICATIONS CONSULTANT assistance from [facility], and [facility] to set up her medications. Her son, Anderson is her HCP, form to be completed here. She has a walker, shower seat, bars, ramp (for son who uses W/C). PCP is; Ailin Araujo. Pt. is able to get transport home upon DC. CM to follow and assist with DC plan.
--- NOTE | 2023-09-06 14:51 | PC.NURSE ---
PT VOIDED 300CCS URINE. ORAL FLUIDS CONTINUE TO BE PUSHED
--- NOTE | 2023-09-06 15:07 | PC.NURSE ---
Patient transitioned to overflow bed, fluids encouraged per provider order, patient voided x 1 1A to BR w/ walker. Resting comfortably in bed at this time.
[2023-09-06] MEDS: SUMAtriptan succinate 100 MG TABLET PO (15:34)
[2023-09-06] MEDS: OLANZapine 2.5 MG TABLET PO ×2 (15:35→20:18)
--- NOTE | 2023-09-06 16:27 | MHC.EDTECH ---
pt was walked from bed to bathroom with walker assistance and a steady gait
[2023-09-06 18:23] VITALS: BMI 26.0
[2023-09-06 18:51] VITALS: BP 165/80; PULSE 65; RESP 18; TEMP 36.4; O2SAT 95
[2023-09-06 19:18] VITALS: BP 137/70; PULSE 65; RESP 18; TEMP 36.7; O2SAT 97
[2023-09-06] MEDS: Bumetanide 1 MG TABLET 0.5 MG PO (20:18)
[2023-09-06] MEDS: OLANZapine 5 MG TABLET PO (20:18)
[2023-09-06] MEDS: clonazePAM 0.5 MG TABLET PO (20:23)
[2023-09-06] MEDS: Enoxaparin Sodium 40 MG/0.4 ML SYRINGE SUBCUT (22:34)
[2023-09-06] MEDS: Heparin Sodium,Porcine Flush 50 UNITS/5 ML SYRINGE IVFLUSH (22:34)
[2023-09-07] MEDS: oxyCODONE HCl Immed Release 5 MG TABLET 10 MG PO ×3 (00:56→12:27)
[2023-09-07] MEDS: Acetaminophen 325 MG TABLET 650 MG PO ×2 (00:56→06:50)
[2023-09-07 03:01] VITALS: BP 98/64; PULSE 51; RESP 18; TEMP 36.4; O2SAT 98
[2023-09-07 05:37] LABS: Hematocrit 35.8 % (37.0-47.0); Hemoglobin 11.6 g/dl (12.0-16.0); Mean Corpuscular HGB Conc 32.4 g/dl (31.0-35.0); Mean Corpuscular Volume 98.6 fL (80.0-98.0); Mean Platelet Volume 10.5 fL (9.4-12.3); Platelet Count 126 X10*3/uL (160-400); Red Blood Count 3.63 X10*6/uL (4.20-5.50); Red Cell Distribution Width 11.9 % (11.0-16.0); White Blood Count 3.8 X10*3/uL (4.8-10.8)
[2023-09-07 05:51] LABS: Anion Gap 10 (12-20); Blood Urea Nitrogen 18 mg/dL (9-16); Calcium 8.5 mg/dL (8.4-10.2); Carbon Dioxide 24 mmol/L (22-29); Chloride 114 mmol/L (96-108); Creatinine Clr Calc Pharmacy 53.6; Estimated Glomerular Filt Rate 49; Glucose Random 84 mg/dL (60-115); Potassium 3.8 mmol/L (3.3-5.1); Sodium 144 mmol/L (135-145)
[2023-09-07] MEDS: clonazePAM 0.5 MG TABLET PO ×2 (06:50→12:27)
[2023-09-07 07:32] VITALS: BP 120/80; PULSE 60; RESP 17; TEMP 35.9; O2SAT 96
[2023-09-07] MEDS: 0.9 % Sodium Chloride Flush 3 ML SYRINGE IVFLUSH (07:48)
[2023-09-07] MEDS: DULoxetine HCl 60 MG CAPSULE.DR PO (07:50)
[2023-09-07] MEDS: Montelukast Sodium 10 MG TABLET PO (07:50)
[2023-09-07] MEDS: OLANZapine 2.5 MG TABLET PO (07:50)
[2023-09-07] MEDS: Heparin Sodium,Porcine Flush 50 UNITS/5 ML SYRINGE IVFLUSH (07:50)
[2023-09-07] MEDS: Loperamide HCl 2 MG CAPSULE PO ×2 (07:50→12:27)
[2023-09-07] MEDS: Multivitamin TABLET 1 TAB PO (07:50)
[2023-09-07] MEDS: levETIRAcetam 1,000 MG TABLET 1000 MG PO (07:51)
[2023-09-07] MEDS: Midodrine HCl 2.5 MG TABLET PO (07:51)
--- NOTE | 2023-09-07 09:23 | PM.DS ---
DS: Providers Provider Date of Service: 09/07/23 Date of admission: 09/05/23 21:39 Primary care physician: Ailin Araujo MD DS: Diagnosis Discharge Diagnosis (1) Hypotension: Status: Acute (2) Altered mental state: Status: Acute (3) CKD (chronic kidney disease) stage 3, GFR 30-59 ml/min: Status: Acute DS: Summary Hospital Course Hospital Course: History of presenting illness: Date of Service: 09/05/23 Attending physician on admission: Ambar Charles Chief Complaint: ams 58-year-old female with history of epileptic seizure disorder, migraines, history of breast cancer, GERD, bipolar disorder, opiate dependence on oxycodone, chronic pain syndrome, CKD stage 3 presented to the ED earlier today via EMS due to altered mental status. Patient is very tearful and is a limited historian. Discussed with patient's son, Jeronimo, with whom she lives who reports that upon waking this morning the patient seemed confused and questioned whether she was postictal. However, denies witnessing any seizure events. He states her medications are managed by [facility] and she received medication sleeve this morning. He did check medications sleeve and reports 2 tablets of oxycodone and clonazepam were missing. He denies any knowledge of any other controlled substance or illicit substance use currently but does have a history of abusing other's controlled substances including her son's. Since arrival, patient has been hypotension with sbp in the 80s improved to 114/72 on admission with IVF though patient does remain encephalopathic. HR also initially low in the high 40s, improved to 86 on admission. No leukocytosis. Renal function baseline, electrolyte levels normal. Lactic acid 1.7. Troponin below detectable limits. VBG reassuring with pH 7.36, pCO2 51, bicarb 29. Acetaminophen and salicylate levels but low detectable limit. Urine tox screen and UA/UC ordered and pending, patient refusing urine at this time. CXR negative for any acute cardiopulmonary abnormality. Head CT negative for any acute intracranial pathology. CT cervical spine negative for any acute osseous abnormality but shows moderate to severe central canal stenosis and mild anterolisthesis at the C3-4 level. In the ED, given 2.1L IVF and empirically treated with 500mg levaquin. Hospital course: 58-year-old female with history of epileptic seizure disorder, migraines, history of breast cancer, GERD, bipolar disorder, opiate dependence on oxycodone, chronic pain syndrome, copd, CKD stage 3 admitted for acute toxic metabolic encephalopathy and hypotension. # acute toxic metabolic encephalopathy resolved was likely secondary to medication use including oxycodone and clonazepam, reportedly took 2 oxycodone 20 mg total and clonazepam prior to worsening mental status, patient now awake alert answering question appropriately, no seizure-like activity noted, head CT negative for acute intracranial abnormality, no evidence of infection, UA negative, no sepsis no sirs, urine toxicology screen, negative recommend to continue antiepileptics, also noted to have hypotension treated with IV fluid history of chronic hypotension on midodrine dose of Bumex reduced to 0.5 mg daily, case discussed with patient's primary outer diameter grinder tool Dr. Gardiner who agreed with the plan, patient is on Bumex due to chronic leg edema. # mild acute hypernatremia and hyperchloremia due to IV normal saline , improved. # chronic pain/history of migraine recommend to resume home dose of oxycodone and Imitrex. #Epileptic seizure disorder -continue home medications. #Bipolar disorder -continue mood stabilizers #COPD -no acute exacerbation, continue albuterol p.r.n. # CKD stage 3 enjoys-renal function baseline Time Attestation Discharge coordination time: Greater than 30 minutes Quality: Safe Use of Opioids Does Pt have an Active Cancer Diagnosis on the Problem List?: No Quality: Stroke Does the patient have a stroke diagnosis?: No Physical Exam Vital Signs: Vital Signs: Last Vital Signs Temp 96.6 F L 09/07/23 07:32 Pulse 60 09/07/23 07:32 Resp 17 09/07/23 07:32 BP 120/80 09/07/23 07:32 Pulse Ox 96 09/07/23 07:32 O2 Del Method Room Air 09/07/23 07:32 BMI result Body Mass Index 26.0 Const: Other: General awake alert x3, in no acute distress. Neck supple no JVD. CVS regular rate rhythm, Respiratory lungs clear to auscultation, no respiratory distress, no wheeze, no rhonchi. Gastrointestinal abdomen soft, non tender, bowel sounds audible, no guarding , no rigidity. Extremities no edema. Neuro non focal Skin no rash Psych appropriate affect DS: Data Data Completed and Pending Labs on day of discharge: Laboratory Results - last 24 hr 09/07/23 05:25 WBC 3.8 L RBC 3.63 L Hgb 11.6 L Hct 35.8 L MCV 98.6 H MCH 32.0 MCHC 32.4 RDW 11.9 Plt Count 126 L MPV 10.5 Absolute Nucleated RBC 0.000 Nucleated RBC % (auto) 0.0 Sodium 144 Potassium 3.8 Chloride 114 H Carbon Dioxide 24 Anion Gap 10 L BUN 18 H Creatinine 1.13 Estim Creat Clear Calc 53.6 Estimated GFR 49 Random Glucose 84 Calcium 8.5 Preliminary micro results at discharge 09/05/23 18:19 Blood Culture - Preliminary Blood - Venous No growth after 24 hours. Discharge Plan Discharge Anticipated Discharge Date/Time: 09/07/23 09:21 Patient Disposition: Home Health Service Discharge Diagnosis: Acute toxic metabolic encephalopathy Referrals: Physician,Unknown J [Physician] - 1 Week Discharge Medications: New bumetanide 0.5 mg tablet 0.5 mg PO DAILY Qty: 90 0RF Continued ondansetron HCl 8 mg tablet 1 tab PO TID PRN (Reason: nausea/vomiting) loperamide 2 mg capsule 2 mg PO QID multivitamin Tablet 1 tab PO DAILY cetirizine 10 mg tablet 10 mg PO DAILY sumatriptan succinate 100 mg tablet 100 mg PO DAILY PRN (Reason: Migraine Headache) omeprazole 20 mg capsule,delayed release(DR/EC) 20 mg PO TID-QID PRN (Reason: meal grazing) epinephrine 0.3 mg/0.3 mL auto-injector 0.3 mg IM ONCE levetiracetam 1,000 mg tablet 1,000 mg PO BID duloxetine 60 mg capsule,delayed release(DR/EC) 60 mg PO BID Qty: 60 0RF olanzapine 2.5 mg tablet 2.5 mg PO TID montelukast 10 mg tablet 10 mg PO DAILY albuterol sulfate 90 mcg/actuation HFA aerosol inhaler 1 puff inhalation Q4H PRN (Reason: dyspnea) clonazepam 0.5 mg tablet 0.5 mg PO BID PRN (Reason: anxiety) midodrine 2.5 mg tablet 2.5 mg PO BID 30 Days Qty: 60 3RF Rx Instructions: do not give last dose of day after 6PM or within 4 hrs of bedtime olanzapine 5 mg tablet 5 mg PO BEDTIME oxycodone 10 mg tablet 10 mg PO 5XD Changed bumetanide 0.5 mg tablet 0.5 mg PO DAILY 30 Days Qty: 60 5RF Discharge Orders: Discharge Order (Routine); Ordered 09/07/23 Ordered By: Marciano Jansen Diet: Advance to usual diet Activity on Discharge: As tolerated Stand Alone Forms: Patient Portal Discharge page Care Plan Goals: Acute toxic metabolic encephalopathy resolved Hypotension decrease dose of Bumex to 0.5 mg daily Health Concerns: Chronic pain Epileptic seizures Plan of Treatment: Outpatient follow-up with primary care physician and Nephrology Assessment: As above
--- NOTE | 2023-09-07 09:53 | MHC.CM.PN ---
pt dcd home with resumption of servies
--- NOTE | 2023-09-07 09:55 | MHC.CM.PN ---
pt lives with is indepedent has a ride home dc plan home no services
== END 2023-09-07 12:31 | disposition home health service (06) | DRG 917 ==
LOC: HO.ED 21:33 → HO.EDOVER 22:10 → HO.S3 09-06 15:37
PROVIDERS: Admitting Provider Physician Assistant; Emergency Provider Emergency Medicine Emergency Medical Services; PCP Family Medicine; Visit Provider Hospitalist
DX: T40.2X1A Poisoning by other opioids, accidental (unintentional), initial encounter (principal); G92.8 Other toxic encephalopathy; D68.51 Activated protein C resistance; F11.20 Opioid dependence, uncomplicated; E87.0 Hyperosmolality and hypernatremia; T42.4X1A Poisoning by benzodiazepines, accidental (unintentional), initial encounter; E87.8 Other disorders of electrolyte and fluid balance, not elsewhere classified; F17.210 Nicotine dependence, cigarettes, uncomplicated; J44.9 Chronic obstructive pulmonary disease, unspecified; I95.2 Hypotension due to drugs; G40.909 Epilepsy, unspecified, not intractable, without status epilepticus; F31.9 Bipolar disorder, unspecified; N18.30 Chronic kidney disease, stage 3 unspecified; G89.4 Chronic pain syndrome; Z71.6 Tobacco abuse counseling; Z79.899 Other long term (current) drug therapy
CPT/HCPCS: 0241U; 36415; 70450; 71045; 72125; 80048; 80076; 80143; 80177; 80179; 80307; 81001; 82310; 82607; 82746; 82803; 82947; 83605; 83735; 83880; 84443; 84484; 85025; 85027; 85652; 86140; 87040; 87086; 93005; 99285; J1642; J1650; J1885; J1953; J1956; J2405; J2997; J7120

== ENCOUNTER → 2023-09-05 15:13 | Outpatient (BNV) | payer MEDICARE, MEDICAID, SELFPAY | PROVIDERS: Admitting Provider Physician Assistant; Emergency Provider Emergency Medicine Emergency Medical Services; PCP Family Medicine; Visit Provider Internal Medicine | DX: R00.1 Bradycardia, unspecified (principal) | CPT/HCPCS: 93010 ==

== ENCOUNTER → 2023-09-05 15:42 | Outpatient (BNV) | payer MEDICARE, MEDICAID, SELFPAY | PROVIDERS: Emergency Provider Emergency Medicine Emergency Medical Services; Visit Provider Physician Assistant | DX: I95.9 Hypotension, unspecified (principal); R41.82 Altered mental status, unspecified; N18.31 Chronic kidney disease, stage 3a | CPT/HCPCS: 99223; 99233; 99238 ==

== ENCOUNTER 2023-09-09 20:52 | Inpatient (IN) | payer MEDICARE, MEDICAID, SELFPAY ==
--- NOTE | ~2023-09-09 | CT_ITS ---
EXAMINATION: CT HEAD WITHOUT CONTRAST CLINICAL INFORMATION: Altered mental status COMPARISON: 09/05/2023 TECHNIQUE: Contiguous axial imaging was performed from the skull base to vertex without intravenous administration of contrast. This CT examination was performed using dose optimization techniques as appropriate, variously including the following: *Automated exposure control *Adjustment of mA and/or kV according to patient size (this includes techniques or standardized protocols for targeted exams where dose is matched to indication/reason for exam; i.e. extremities or head) *Use of iterative reconstruction technique DLP: 642 mGy-cm FINDINGS: There is no evidence of acute intracranial hemorrhage or territorial infarction. No abnormal mass-effect or midline shift is seen. Trejo to white matter differentiation is well preserved. No extra-axial fluid collections are identified. The ventricles are normal in size. There is no abnormal attenuation within the brain parenchyma. The osseous structures and soft tissues are normal. The mastoid air cells and visualized portions of the paranasal sinuses are well-aerated. CT/CT head/brain wo IV con IMPRESSION: No acute intracranial pathology.
[2023-09-09 21:06] VITALS: BP 110/76; BP 121/61; PULSE 50; PULSE 57; RESP 12; O2SAT 100; O2SAT 99; BMI 26.6
--- NOTE | 2023-09-09 21:13 | ECG_ITS ---
Test Reason : OVERDOSE Blood Pressure : / mmHG Vent. Rate : 057 BPM Atrial Rate : 057 BPM P-R Int : 128 ms QRS Dur : 088 ms QT Int : 468 ms P-R-T Axes : 058 018 034 degrees QTc Int : 455 ms Sinus bradycardia Low voltage QRS Borderline ECG When compared with ECG of 05-SEP-2023 15:14, No significant change was found Referred By: Arun Nava Electronically Signed By:MARITZA TEJADA
--- NOTE | 2023-09-09 21:49 | ED.GENADULT ---
HPI - General Adult General Chief complaint: Overdose Stated complaint: MED REACTION Time Seen by Provider: 09/09/23 21:11 History of Present Illness HPI narrative: The patient is a 58-year-old woman with a complex medical and psychiatric history. She has a history of seizure-like episodes and has had extensive evaluations for these. She has had evaluations at [facility] as well as hospitals in [place]. She is on levetiracetam. According to her son with whom she lives when she was last in [place] she was told that she has a seizure disorder related to her trauma history. I think she likely has a history nonepileptic seizures. She also has a history of multiple presentations to multiple emergency rooms for altered mental status. She also has a history of psychiatric hospitalizations. According to her son the patient had been doing pretty well for a couple of months recently although she came to the hospital here on TuesdaySeptember 05 with hospitalized because of altered mental status. She was kept in the hospital for 2 days and discharged. The patient has had multiple similar hospitalizations in the past. According to the son the patient did well yesterday at home and seemed reasonably well this morning. However this afternoon at around 04:30 he says that she and the son had a stressful conversation about complex family dynamics that the patient found very upsetting. At around 17:00 the son thought that the patient seemed somewhat unsteady on her feet and confused. At that point the son encouraged her to come to the hospital for evaluation but the patient insisted she was fine. At around 20:00 the son checked on her and found her unresponsive and called an ambulance. Visiting nurses come to the home 3 times a week to deliver the patient's medications. The patient's medications are in a lock box and the son controls the patient has access to her medications. The patient is grab both oxycodone and clonazepam on a regular basis. The son does not feel the patient has any access to these medications and therefore she he does not feel she can overdose on her own medications. Additionally he does not feel that she has had any opportunity to obtain drugs from the street. There is no report of any fever. Related Data Home Medications Medication Instructions Recorded Confirmed ondansetron HCl 8 mg tablet 1 tab PO TID PRN nausea/vomiting 01/29/21 09/09/23 cetirizine 10 mg tablet 10 mg PO DAILY 04/28/23 09/09/23 epinephrine 0.3 mg/0.3 mL 0.3 mg IM ONCE anaphylaxis 04/28/23 09/09/23 injection, auto-injector levetiracetam 1,000 mg tablet 1,000 mg PO BID 04/28/23 09/09/23 loperamide 2 mg capsule 2 mg PO QID diarrhea 04/28/23 09/09/23 multivitamin 1 tab PO DAILY 04/28/23 09/09/23 omeprazole 20 mg capsule,delayed 20 mg PO TID-QID PRN meal grazing 04/28/23 09/09/23 release sumatriptan succinate 100 mg tablet 100 mg PO DAILY PRN Migraine 04/28/23 09/09/23 Headache clonazepam 0.5 mg tablet 0.5 mg PO BID PRN anxiety 06/01/23 09/09/23 olanzapine 5 mg tablet 5 mg PO BEDTIME 08/03/23 09/09/23 oxycodone 10 mg tablet 10 mg PO 5XD 08/03/23 09/09/23 albuterol sulfate 90 mcg/actuation 1 puff inhalation Q4H PRN dyspnea 09/06/23 09/09/23 aerosol inhaler montelukast 10 mg tablet 10 mg PO DAILY 09/06/23 09/09/23 olanzapine 2.5 mg tablet 2.5 mg PO TID 09/06/23 09/09/23 Previous Rx's Medication Instructions Recorded midodrine 2.5 mg tablet 2.5 mg PO BID 30 days #60 tabs 06/01/23 duloxetine 60 mg capsule,delayed 60 mg PO BID #60 caps 06/10/23 release bumetanide 0.5 mg tablet 0.5 mg PO DAILY #90 tabs 09/07/23 Allergies Allergy/AdvReac Type Severity Reaction Status Date / Time bee pollen [Bee Stings] Allergy Mild ANAPHYLAXIS Verified 08/03/23 09:44 codeine [Codeine] Allergy Mild ANAPHYLAXIS Verified 08/03/23 09:44 Penicillins Allergy Mild UNKNOWN Verified 08/03/23 09:44 aspirin [ASA] Allergy Unknown Verified 08/03/23 09:44 ciprofloxacin [From Cipro] Allergy Rash Verified 08/03/23 09:44 Iodinated Contrast Media Allergy Hives Verified 08/03/23 09:44 [Contrast Dye] latex Allergy Rash Verified 08/03/23 09:44 macadamia nut Allergy Anaphylaxis Verified 08/03/23 09:44 Sulfa (Sulfonamide Allergy Anaphylaxis Verified 08/03/23 09:44 Antibiotics) sulfamethoxazole Allergy Anaphylaxis Verified 08/03/23 09:44 [From Bactrim] trimethoprim [From Bactrim] Allergy Anaphylaxis Verified 08/03/23 09:44 bee stings Allergy Unknown anaphylaxis Uncoded 09/02/11 00:00 Codeine Phosphate Allergy Unknown stomach Uncoded 09/02/11 00:00 upset Penicillin Allergy Unknown anaphylaxis Uncoded 09/02/11 00:00 Review of Systems Review of Systems: Yes Unobtainable due to mental status PMFSH Past Medical History Medical History Orthostatic hypotension Seizure disorder History of prolonged Q-T interval on ECG Psychogenic nonepileptic seizure CKD (chronic kidney disease) stage 3, GFR 30-59 ml/min COPD (chronic obstructive pulmonary disease) GERD (gastroesophageal reflux disease) Port-A-Cath in place Malabsorption Compression fracture of C3 vertebra Self-catheterizes urinary bladder Neuropathy SIADH (syndrome of inappropriate ADH production) Chronic anemia Enlarged liver Enlarged heart History of atrial fibrillation Polysubstance abuse Von Willebrand disease Factor V deficiency Depression Uterine cancer Breast cancer Migraines Asthma Seizure Surgical History H/O knee surgery Hx of cholecystectomy History of hysterectomy H/O gastric bypass Social History Social History Household Members: Children Household Members Other:: One son Housing: House Housing Other:: House has ramps Do you presently have visiting nurse or other home services: Yes ([place] 3 days/week; also has lashawn) Unable to assess alcohol history related to: Unknown Alcohol intake: unknown Comment: [phone] Patient Tobacco Use Status: Current everyday Tobacco user Tobacco use type: Cigarette Cigarettes Per Day: 2 Advance Directives: No Advance Directives Information Provided: Yes Patient : No service: No Physical Exam ED Vital Signs: Vital Signs - 24 hr 09/09/23 21:06 09/10/23 00:18 Temperature 97.9 F Pulse Rate 57 51 Respiratory Rate 12 12 Blood Pressure 121/61 111/59 L Pulse Oximetry 100 99 Oxygen Delivery Method Room Air Room Air BMI result Body Mass Index 26.6 Const Other: The patient is a 50-year-old woman who looks quite chronically ill. She is somnolent and unresponsive to verbal stimuli. She grimaces in response to painful stimuli. She is breathing spontaneously. HENMT Other: No facial asymmetry. Patient is edentulous. Eyes Other: Pupils are small but not pinpoint. Conjunctivae are clear Neck Other: Neck is supple, no JVD Resp Other: Breath sounds clear and equal. No increased work of breathing. She has some sonorous breathing. Cardio Rate: bradycardic Rhythm: regular rhythm Heart sounds: S1 normal heart sound present and S2 normal heart sound present GI Other: Abdomen is soft and not apparently tender Skin Other: Skin is dry and unremarkable Neuro Other: The patient is somnolent and unresponsive to verbal stimuli. She grimaces in response to painful stimuli. Pupils are small but not pinpoint. Face is symmetrical and she grimaces symmetrically. Her extremities seem quite limp but when her hand was dropped on her face the hand hit her face very slowly. Tone is symmetrical. The patient is quite somnolent and unresponsive but the some degree this seems volitional. Nursing staff attempted to obtain a catheterized urine but the patient Extrem Other: No calf swelling or tenderness, no asymmetry Medications Administered Generic Name Dose Route Start Last Admin Trade Name Freq PRN Reason Stop Dose Admin Enoxaparin Sodium 40 mg 09/10/23 00:30 09/10/23 01:13 Enoxaparin Sodium 40 Mg/0.4 Ml Syringe SUBCUT Not Given BEDTIME TAMARA Discontinued Medications Generic Name Dose Route Start Last Admin Trade Name Freq PRN Reason Stop Dose Admin Sodium Chloride 1,000 mls @ 999 mls/hr 09/09/23 21:45 09/09/23 23:44 Ns IV 09/09/23 22:45 Infused .Q1H1M TAMARA Infusion Levetiracetam 1,000 mg in 100 mls @ 400 mls/hr 09/10/23 00:30 09/10/23 01:11 Keppra IV 09/10/23 00:44 400 mls/hr ONCE ONE Administration Medical Decision Making Medical Decision Making MDM Narrative: The patient is a very complex patient well known to me from multiple previous emergency room visits at [facility] in [place] with the patient is often brought for similar presentations. She has had multiple evaluations for possible seizures. According to her son with whom I spoke on the phone the latest evaluation by a [place] neurologist is that she has seizure-like activity related to psychological trauma. So she likely has nonepileptic seizures. She is on levetiracetam. It is hard to know whether her presentation tonight is entirely psychogenic or whether there is some other component to her unresponsiveness. Labs show a mild acute kidney injury. She has a mild respiratory acidosis. She is bradycardic and mildly hypotensive. These findings would probably be more consistent with drug misuse then a completely psychogenic presentation. She was given IV fluids. She will be admitted to the hospitalist service for further evaluation and monitoring. Lab Data 09/09/23 21:57 09/09/23 21:57 Labs: Lab Results 09/09/23 09/09/23 09/09/23 Range/Units 21:57 21:58 22:02 WBC 4.6 L (4.8-10.8) X10*3/uL RBC 3.79 L (4.20-5.50) X10*6/uL Hgb 12.3 (12.0-16.0) g/dl Hct 37.8 (37.0-47.0) % MCV 99.7 H (80.0-98.0) fL MCH 32.5 (27.0-33.0) pg MCHC 32.5 (31.0-35.0) g/dl RDW 12.1 (11.0-16.0) % Plt Count 129 L (160-400) X10*3/uL MPV 10.6 (9.4-12.3) fL Immature Gran % (Auto) 0.2 (0.0-0.4) % Neut % (Auto) 59.7 (45-73) % Lymph % (Auto) 31.4 (20-40) % [place] % (Auto) 8.7 (2-11) % Eos % (Auto) 0.0 (0-4) % Baso % (Auto) 0.0 (0-2) % Lymph # (Auto) 1.4 (1.2-4.9) X10*3/uL [place] # (Auto) 0.4 (0.1-1.2) X10*3/uL Eos # (Auto) 0.0 (0.0-0.4) X10*3/uL Baso # (Auto) 0.0 (0.0-0.2) X10*3/uL Abs Immat Gran (auto) 0.01 (0.00-0.03) X10*3/uL Absolute Neuts (auto) 2.7 (2.0-8.3) x10*3/uL Absolute Nucleated RBC 0.000 (0.0-0.012) X10*3/uL Nucleated RBC % (auto) 0.0 (0.0-0.2) /100WBC VBG pH 7.31 L (7.32-7.43) VBG pCO2 57 mmHg VBG pO2 45 mmHg VBG HCO3 29 H (22-26) mmol/L VBG O2 Saturation 72.0 % VBG Base Excess 2.3 mmol/L Sodium 145 (135-145) mmol/L Potassium 4.3 (3.3-5.1) mmol/L Chloride 110 H (96-108) mmol/L Carbon Dioxide 28 (22-29) mmol/L Anion Gap 11 L (12-20) BUN 30 H (9-16) mg/dL Creatinine 1.51 H (0.5-1.4) mg/dL Estim Creat Clear Calc 42.0 Estimated GFR 35 Random Glucose 90 (60-115) mg/dL Lactic Acid 0.6 (0.5-2.0) mmol/L Calcium 9.2 D (8.4-10.2) mg/dL Magnesium 2.3 (1.6-2.6) mg/dL Total Bilirubin 0.4 (0.0-1.0) mg/dL Direct Bilirubin 0.1 (0.0-0.5) mg/dL AST 31 (5-31) U/L ALT 25 (0-31) U/L Alkaline Phosphatase 112 (39-117) U/L Troponin I High Sens < 2.7 (<3.5-17.0) ng/L C-Reactive Protein 0.37 (< or = 0.50) mg/dL B-Natriuretic Peptide 87 (<100) pg/mL Total Protein 6.1 L (6.5-8.0) g/dL Albumin 3.8 (3.5-5.0) g/dL Salicylates < 5.0 L (15-30) mg/dL Acetaminophen < 3 (<30) mcg/mL Ethyl Alcohol < 10 mg/dL Influenza Type A (PCR) NEGATIVE (Negative) Influenza Type B (PCR) NEGATIVE (Negative) RSV RNA Qual (PCR) NEGATIVE (Negative) SARS-CoV-2 RNA (RT-PCR) NEGATIVE (Negative) Critical Care Time Critical Care Time Critical Care Time: Yes Total Critical Care Time: 45 Attestation: The patient was critically ill with a high probability of imminent or life-threatening deterioration. ?I spent greater than 30 minutes of discontinuous time evaluating the patient, delivering critical care at the bedside, discussing evaluating data with consultants. ?Critical care time does not include time spent performing separately billable procedures or teaching. ?Time spent performing critical care with 45 minutes. Discharge Plan Discharge Clinical Impression: Altered mental status Patient Disposition: Admitted As Inpatient
--- NOTE | 2023-09-09 21:49 | PHA.MEDREC ---
Pharmacy Consult ? Medication Reconciliation Pharmacy has completed the medication reconciliation. Patient just discharged two days ago on 09/07/23. Utilized discharge summary for med rec. Casie Jackson, AngelD
[2023-09-09 22:06] LABS: MANUAL DIFF FLAG NO
[2023-09-09 22:08] LABS: Venous Blood Gas Refer to POC result
[2023-09-09 22:08] LABS: VBG Base Excess 2.3 mmol/L; VBG HCO3 29 mmol/L (22-26); VBG pCO2 57 mmHg; VBG pH 7.31 (7.32-7.43); VBG pO2 45 mmHg
[2023-09-09 22:09] LABS: Hematocrit 37.8 % (37.0-47.0); Hemoglobin 12.3 g/dl (12.0-16.0); Imm Gran Abs Auto 0.01 X10*3/uL (0.00-0.03); Imm Gran Pct Auto 0.2 % (0.0-0.4); Lymphocytes Absolute Auto 1.4 X10*3/uL (1.2-4.9); Lymphocytes Percent Auto 31.4 % (20-40); Mean Corpuscular HGB Conc 32.5 g/dl (31.0-35.0); Mean Corpuscular Hemoglobin 32.5 pg (27.0-33.0); Mean Corpuscular Volume 99.7 fL (80.0-98.0); Mean Platelet Volume 10.6 fL (9.4-12.3); Monocytes Absolute Auto 0.4 X10*3/uL (0.1-1.2); Monocytes Percent Auto 8.7 % (2-11); Neutrophils Absolute Auto 2.7 x10*3/uL (2.0-8.3); Neutrophils Percent Auto 59.7 % (45-73); Platelet Count 129 X10*3/uL (160-400); Red Blood Count 3.79 X10*6/uL (4.20-5.50); Red Cell Distribution Width 12.1 % (11.0-16.0); White Blood Count 4.6 X10*3/uL (4.8-10.8)
[2023-09-09] MEDS: 0.9 % Sodium Chloride 1,000 ML 999 ML IV (22:14)
[2023-09-09 22:21] LABS: Lactic Acid 0.6 mmol/L (0.5-2.0)
[2023-09-09 22:25] LABS: Ethanol < 10 mg/dL
[2023-09-09 22:26] LABS: Alanine Aminotransferase 25 U/L (0-31); Albumin Level 3.8 g/dL (3.5-5.0); Alkaline Phosphatase 112 U/L (39-117); Anion Gap 11 (12-20); Aspartate Amino Transferase 31 U/L (5-31); Bilirubin Direct 0.1 mg/dL (0.0-0.5); Bilirubin Total 0.4 mg/dL (0.0-1.0); Blood Urea Nitrogen 30 mg/dL (9-16); C Reactive Protein 0.37 mg/dL (< or = 0.50); Calcium 9.2 mg/dL (8.4-10.2); Carbon Dioxide 28 mmol/L (22-29); Chloride 110 mmol/L (96-108); Estimated Glomerular Filt Rate 35; Glucose Random 90 mg/dL (60-115); Magnesium 2.3 mg/dL (1.6-2.6); Potassium 4.3 mmol/L (3.3-5.1); Sodium 145 mmol/L (135-145); Total Protein 6.1 g/dL (6.5-8.0)
[2023-09-09 22:29] LABS: Acetaminophen LAB < 3 mcg/mL (<30); Salicylate < 5.0 mg/dL (15-30)
[2023-09-09 22:34] LABS: Troponin-I High Sensitivity < 2.7 ng/L (<3.5-17.0)
[2023-09-09 22:40] LABS: B Type Natriuretic Peptide 87 pg/mL (<100)
[2023-09-09 22:46] LABS: Influenza A PCR NEGATIVE (Negative); Influenza B PCR NEGATIVE (Negative); Resp Syncy Virus RNA Qual PCR NEGATIVE (Negative); SARS COV2 PCR INHOUSE NEGATIVE (Negative)
--- NOTE | 2023-09-09 23:25 | PC.NURSE ---
Addendum entered by Soraya Case RN 09/09/23 23:43: Hallie BOYER attempted with no success. aware Original Note: Attempted to straight cath to obtain urine, bladder scan showed >400mL. I was unsuccessful in catheterizing. Will find another nurse.
[2023-09-10] VITALS (10 sets, daily range): BP systolic 83–154; BP diastolic 51–74; PULSE 49–65; RESP 11–20; TEMP 36.4–36.9; O2SAT 95–100
--- NOTE | 2023-09-10 00:30 | PM.IMHP ---
History of Present Illness Date of Service: 09/10/23 Chief Complaint: Altered mentation This is a 58-year-old female with pertinent history of bipolar disorder, seizure disorder, ?PNES, gastroesophageal reflux disease, chronic pain syndrome with chronic opioid use, migraine who was brought to the emergency department for evaluation of altered mentation. Patient is only grimacing to painful stimulus and unable to provide any history at the time of my evaluation. Patient has had multiple ER visits for altered mentation and multiple psychiatric hospitalizations. She was recently admitted on 09/05 with acute toxic metabolic encephalopathy likely in the setting of oxycodone and clonazepam use and discharged on 09/07. History obtained from ER provider, chart review and son. As per the son, the patient had a stressful conversation on the day of presentation with the son and patient was upset as a result of it. Subsequently later in the day, patient seemed confused. The son checked on her at night and she was unresponsive. The son does not know if the patient took extra pain medications. Unable to obtain review of systems. Review of Systems Review of Systems: Yes Unobtainable due to mental status PMFSH Medical History Orthostatic hypotension Seizure disorder History of prolonged Q-T interval on ECG Psychogenic nonepileptic seizure CKD (chronic kidney disease) stage 3, GFR 30-59 ml/min COPD (chronic obstructive pulmonary disease) GERD (gastroesophageal reflux disease) Port-A-Cath in place Malabsorption Compression fracture of C3 vertebra Self-catheterizes urinary bladder Neuropathy SIADH (syndrome of inappropriate ADH production) Chronic anemia Enlarged liver Enlarged heart History of atrial fibrillation Polysubstance abuse Von Willebrand disease Factor V deficiency Depression Uterine cancer Breast cancer Migraines Asthma Seizure Surgical History H/O knee surgery Hx of cholecystectomy History of hysterectomy H/O gastric bypass Social History Household Members: Children Household Members Other:: One son Housing: House Housing Other:: House has ramps Do you presently have visiting nurse or other home services: Yes ([place] 3 days/week; also has lashawn) Unable to assess alcohol history related to: Unknown Alcohol intake: unknown Comment: 352 Patient Tobacco Use Status: Current everyday Tobacco user Tobacco use type: Cigarette Cigarettes Per Day: 2 service: No Meds Allergies Allergy/AdvReac Type Severity Reaction Status Date / Time bee pollen [Bee Stings] Allergy Mild ANAPHYLAXIS Verified 08/03/23 09:44 codeine [Codeine] Allergy Mild ANAPHYLAXIS Verified 08/03/23 09:44 Penicillins Allergy Mild UNKNOWN Verified 08/03/23 09:44 aspirin [ASA] Allergy Unknown Verified 08/03/23 09:44 ciprofloxacin [From Cipro] Allergy Rash Verified 08/03/23 09:44 Iodinated Contrast Media Allergy Hives Verified 08/03/23 09:44 [Contrast Dye] latex Allergy Rash Verified 08/03/23 09:44 macadamia nut Allergy Anaphylaxis Verified 08/03/23 09:44 Sulfa (Sulfonamide Allergy Anaphylaxis Verified 08/03/23 09:44 Antibiotics) sulfamethoxazole Allergy Anaphylaxis Verified 08/03/23 09:44 [From Bactrim] trimethoprim [From Bactrim] Allergy Anaphylaxis Verified 08/03/23 09:44 bee stings Allergy Unknown anaphylaxis Uncoded 09/02/11 00:00 Codeine Phosphate Allergy Unknown stomach Uncoded 09/02/11 00:00 upset Penicillin Allergy Unknown anaphylaxis Uncoded 09/02/11 00:00 Home Medications Medication Instructions Recorded Confirmed Last Taken Type ondansetron HCl 8 mg tablet 1 tab PO TID PRN nausea/vomiting 01/29/21 09/09/23 04/28/23 06:30 History cetirizine 10 mg tablet 10 mg PO DAILY 04/28/23 09/09/23 04/28/23 06:30 History epinephrine 0.3 mg/0.3 mL 0.3 mg IM ONCE anaphylaxis 04/28/23 09/09/23 Unknown History injection, auto-injector levetiracetam 1,000 mg tablet 1,000 mg PO BID 04/28/23 09/09/23 04/28/23 06:30 History loperamide 2 mg capsule 2 mg PO QID diarrhea 04/28/23 09/09/23 04/28/23 06:30 History multivitamin 1 tab PO DAILY 04/28/23 09/09/23 04/28/23 06:30 History omeprazole 20 mg capsule,delayed 20 mg PO TID-QID PRN meal grazing 04/28/23 09/09/23 04/28/23 06:30 History release sumatriptan succinate 100 mg tablet 100 mg PO DAILY PRN Migraine 04/28/23 09/09/23 Unknown History Headache clonazepam 0.5 mg tablet 0.5 mg PO BID PRN anxiety 06/01/23 09/09/23 Unknown History olanzapine 5 mg tablet 5 mg PO BEDTIME 08/03/23 09/09/23 Unknown History oxycodone 10 mg tablet 10 mg PO 5XD 08/03/23 09/09/23 Unknown History albuterol sulfate 90 mcg/actuation 1 puff inhalation Q4H PRN dyspnea 09/06/23 09/09/23 Unknown History aerosol inhaler montelukast 10 mg tablet 10 mg PO DAILY 09/06/23 09/09/23 Unknown History olanzapine 2.5 mg tablet 2.5 mg PO TID 09/06/23 09/09/23 Unknown History Physical Exam Vital Signs and Narrative: Vital Signs: Last Vital Signs Temp 97.9 F 09/10/23 00:18 Pulse 51 09/10/23 00:18 Resp 12 09/10/23 00:18 BP 111/59 L 09/10/23 00:18 Pulse Ox 99 09/10/23 00:18 O2 Del Method Room Air 09/10/23 00:18 BMI result Body Mass Index 26.6 Middle-aged female lying in bed in no distress Neck supple, no JVD Regular rate and rhythm, S1-S2 heard Regular breath sounds bilaterally, no wheezing or crackles appreciated Abdomen soft nontender, no guarding, no rigidity Patient is asleep and only grimacing to painful stimulus, not eye opening to painful stimulus, unable to open eyes as she has them tightly shut No pedal edema Results Labs 09/09/23 21:57 09/09/23 21:57 Labs: Laboratory Results - last 24 hr 09/09/23 09/09/23 09/09/23 21:57 21:58 22:02 MCV 99.7 H MCH 32.5 MCHC 32.5 RDW 12.1 Plt Count 129 L MPV 10.6 Immature Gran % (Auto) 0.2 Neut % (Auto) 59.7 Lymph % (Auto) 31.4 [place] % (Auto) 8.7 Eos % (Auto) 0.0 Baso % (Auto) 0.0 Lymph # (Auto) 1.4 [place] # (Auto) 0.4 Eos # (Auto) 0.0 Baso # (Auto) 0.0 Abs Immat Gran (auto) 0.01 Absolute Neuts (auto) 2.7 Absolute Nucleated RBC 0.000 Nucleated RBC % (auto) 0.0 VBG pH 7.31 L VBG pCO2 57 VBG pO2 45 VBG HCO3 29 H VBG O2 Saturation 72.0 VBG Base Excess 2.3 Anion Gap 11 L Estim Creat Clear Calc 42.0 Estimated GFR 35 Random Glucose 90 Lactic Acid 0.6 Calcium 9.2 D Magnesium 2.3 Total Bilirubin 0.4 Direct Bilirubin 0.1 AST 31 ALT 25 Alkaline Phosphatase 112 Troponin I High Sens < 2.7 C-Reactive Protein 0.37 B-Natriuretic Peptide 87 Total Protein 6.1 L Albumin 3.8 Salicylates < 5.0 L Acetaminophen < 3 Ethyl Alcohol < 10 Influenza Type A (PCR) NEGATIVE Influenza Type B (PCR) NEGATIVE RSV RNA Qual (PCR) NEGATIVE SARS-CoV-2 RNA (RT-PCR) NEGATIVE Imaging Radiologist's Impressions: Impressions Head CT 09/09/23 23:50 IMPRESSION: No acute intracranial pathology. Assessment and Plan (1) Altered mental state: Status: Acute (2) Acute kidney injury: Status: Acute Plan This is a 58-year-old female with pertinent history of bipolar disorder, seizure disorder, ?PNES, gastroesophageal reflux disease, chronic pain syndrome with chronic opioid use, migraine who was brought to the emergency department for evaluation of altered mentation. #. Acute encephalopathy, likely toxic in the setting of medication use versus psychogenic: Similar admission previously thought to be due to oxycodone and clonazepam use. ?history of PNES. CT head without any acute abnormality. UA including UDS pending. Supportive care for now, monitor mentation. Consider EEG and Neurology consult if mentation does not improve #. Acute kidney injury: Resuscitating with IV crystalloids. Monitor creatinine and urine output. Avoid nephrotoxins, hold Bumex #. Seizure disorder: On Keppra #. Bipolar disorder: Resume home mood stabilizers once mentation improves and patient is able to take p.o. #. Chronic pain syndrome on chronic opiates Med rec pending DVT prophylaxis: Lovenox Full code Admit as inpatient and will require two night minimum hospital stay for close monitoring of mentation in a patient with acute encephalopathy, monitoring of kidney function (as above), which is not possible in a lesser acute setting. Quality Stroke Does the patient have a stroke diagnosis?: No VTE Prior VTE?: No VTE Risk Level:: Medical - moderate - high VTE Device Contraindication: Treatment Not Indicated VTE Drug Contraindication: N/A - Med Ordered
[2023-09-10] MEDS: levETIRAcetam in NaCl (iso-os) 1,000 MG/100 ML PIGGYBACK 400 MG IV (01:11)
[2023-09-10] MEDS: Lactated Ringers 1,000 ML 999 ML IV (02:16)
--- NOTE | 2023-09-10 04:37 | PC.NURSE ---
Pt remains asleep and minimally responsive. Pt is admitted at this time, 20g IV in the left AC that is in tact and patent. Pt waiting for bed assignment
--- NOTE | 2023-09-10 05:58 | PC.NURSE ---
This RN went into pt's room to disconnect an IV, pt's eyes appeared slightly open. Pt jumped at my touch, but when I spoke to her, she did not answer and her eyes stayed closed. Spoke with pt's son who was asking for updates. Informed son that she is being admitted, she is still minimally responsive, and she has gotten iv fluids for ROBEL.
[2023-09-10 08:26] LABS: MANUAL DIFF FLAG NO
[2023-09-10 08:29] LABS: Basophils Percent Auto 0.2 % (0-2); Hemoglobin 13.7 g/dl (12.0-16.0); Imm Gran Abs Auto 0.02 X10*3/uL (0.00-0.03); Imm Gran Pct Auto 0.4 % (0.0-0.4); Lymphocytes Absolute Auto 1.8 X10*3/uL (1.2-4.9); Lymphocytes Percent Auto 39.5 % (20-40); Mean Corpuscular HGB Conc 31.1 g/dl (31.0-35.0); Mean Corpuscular Hemoglobin 32.2 pg (27.0-33.0); Mean Corpuscular Volume 103.3 fL (80.0-98.0); Mean Platelet Volume 10.6 fL (9.4-12.3); Monocytes Absolute Auto 0.6 X10*3/uL (0.1-1.2); Monocytes Percent Auto 12.4 % (2-11); Neutrophils Absolute Auto 2.1 x10*3/uL (2.0-8.3); Neutrophils Percent Auto 47.5 % (45-73); Platelet Count 114 X10*3/uL (160-400); Red Blood Count 4.26 X10*6/uL (4.20-5.50); Red Cell Distribution Width 12.4 % (11.0-16.0); White Blood Count 4.5 X10*3/uL (4.8-10.8)
[2023-09-10 08:45] LABS: Anion Gap 14 (12-20); Blood Urea Nitrogen 24 mg/dL (9-16); Carbon Dioxide 21 mmol/L (22-29); Chloride 114 mmol/L (96-108); Creatinine Clr Calc Pharmacy 58.1; Estimated Glomerular Filt Rate 52; Glucose Random 71 mg/dL (60-115); Potassium 4.3 mmol/L (3.3-5.1); Sodium 145 mmol/L (135-145)
[2023-09-10] MEDS: Multivitamin TABLET 1 TAB PO (09:00)
[2023-09-10] MEDS: Montelukast Sodium 10 MG TABLET PO (09:00)
[2023-09-10] MEDS: levETIRAcetam 1,000 MG TABLET 1000 MG PO ×2 (09:00→20:05)
[2023-09-10] MEDS: OLANZapine 2.5 MG TABLET PO ×3 (09:01→20:05)
[2023-09-10] MEDS: Midodrine HCl 2.5 MG TABLET PO ×2 (09:01→17:20)
--- NOTE | 2023-09-10 09:05 | PC.NURSE ---
this RN resumed care of pt at this time. pt responds to verbal stimuli at this time. alert and oriented to name only. when responding to questions, her only response is, nida. pt passed nursing swallow screen prior to medication administration. pt swallowed whole pills w/ water w/o any complications. pt seemingly distraught/lethargic/confused. pt continuously mumbling w/ eyes closed. pt able to hold cup of water and position cup to her lips and take a sip independently. no sob/wob noted. pt positioned upright to promote patent airway. respirations even and unlabored. pt waiting for bed assignment. call pelletier placed within reach.
--- NOTE | 2023-09-10 10:52 | MHC.CM.PN ---
PT UNABLE TO PARTICIPATE IN ASSESSMENT DUE TO AMS CM CALLED PTS SON, [place] [phone] HE REPORTS SHE LIVES IN THE HOME WITH HIM SHE HAS MANAGER OF CHANGE DAILY AND EXCEL VNA FOR USP PT USES A WALKER AND TUB BENCH, THERE ARE ALSO GRAB BARS AND A W/C RAMP AT THE HOME THE SON IS DISABLED WELL PT DOES NOT HAVE A HCP, CM WILL OFFER ONCE PTS MENTATION IMPROVES PCP: CORRINA HAMLIN IMM DELIVERED DCP: HOME [facility]ME [facility] VS WITH HOME PT [facility] HOME HEALTH OR FAMILY TO TRANSPORT
--- NOTE | 2023-09-10 10:59 | PC.NURSE ---
vss and up to date at this time. nsr on the playground monitor. pt non responsive to verbal stimuli but responds to sternal rub appropriately. pt still alert and oriented to self only. not responding to questions appropriately. pt continues to mumble at this time in response to questions. no sob/wob noted. respirations remain even and unlabored. call pelletier placed within reach.
--- NOTE | 2023-09-10 11:22 | HO.PM.IMPN ---
Subjective Subjective Date of Service: 09/10/23 Review of Systems Review of Systems: Yes Unobtainable due to mental condition Physical Exam Vital Signs: Vital Signs: Last Vital Signs Temp 98.0 F 09/10/23 10:57 Pulse 63 09/10/23 10:57 Resp 12 09/10/23 10:57 BP 116/68 09/10/23 10:57 Pulse Ox 95 09/10/23 10:57 O2 Del Method Room Air 09/10/23 10:57 BMI result Body Mass Index 26.6 obtunded, non cooperative, lungs clears, RRR Objective Data Active Medications Acetaminophen (Acetaminophen 325 Mg Tablet) 650 mg PO Q6H PRN PRN Reason: Pain, Mild (Pain Scale 1-3) Acetaminophen (Acetaminophen Supp 650 Mg Supp.Rect) 650 mg OR Q6H PRN PRN Reason: Pain, Mild (Pain Scale 1-3) Enoxaparin Sodium (Enoxaparin Sodium 40 Mg/0.4 Ml Syringe) 40 mg SUBCUT BEDTIME [facility] Last Admin: 09/10/23 01:13 Dose: Not Given Documented By: MACHO Non-Admin Reason: Med Not Available Levetiracetam (Levetiracetam 1,000 Mg Tablet) 1,000 mg PO BID [facility] Last Admin: 09/10/23 09:00 Dose: 1,000 mg Documented By: JENNIFER Midodrine (Midodrine Hcl 2.5 Mg Tablet) 2.5 mg PO BIDAC [facility] Last Admin: 09/10/23 09:01 Dose: 2.5 mg Documented By: JENNIFER Montelukast Sodium (Montelukast Sodium 10 Mg Tablet) 10 mg PO DAILY [facility] Last Admin: 09/10/23 09:00 Dose: 10 mg Documented By: JENNIFER Multivitamins/Vitamin C (Multivitamin Tablet) 1 tab PO DAILY [facility] Last Admin: 09/10/23 09:00 Dose: 1 tab Documented By: JENNIFER Olanzapine (Olanzapine 2.5 Mg Tablet) 2.5 mg PO TID [facility] Last Admin: 09/10/23 09:01 Dose: 2.5 mg Documented By: JENNIFER Olanzapine (Olanzapine 5 Mg Tablet) 5 mg PO BEDTIME [facility] Ondansetron HCl (Ondansetron Hcl 4 Mg/2 Ml Vial) 4 mg IVPUSH Q8H PRN PRN Reason: Nausea and Vomiting Sodium Chloride (0.9 % Sodium Chloride Flush 3 Ml Syringe) 3 ml IVFLUSH QSHIFT TAMARA Last Admin: 09/10/23 08:02 Dose: Not Given Documented By: JENNIFER Non-Admin Reason: Patient Asleep Labs 09/10/23 08:22 09/10/23 08:22 Labs: Laboratory Results - last 24 hr 09/09/23 09/09/23 09/09/23 21:57 21:58 22:02 MCV 99.7 H MCH 32.5 MCHC 32.5 RDW 12.1 Plt Count 129 L MPV 10.6 Immature Gran % (Auto) 0.2 Neut % (Auto) 59.7 Lymph % (Auto) 31.4 [place] % (Auto) 8.7 Eos % (Auto) 0.0 Baso % (Auto) 0.0 Lymph # (Auto) 1.4 [place] # (Auto) 0.4 Eos # (Auto) 0.0 Baso # (Auto) 0.0 Abs Immat Gran (auto) 0.01 Absolute Neuts (auto) 2.7 Absolute Nucleated RBC 0.000 Nucleated RBC % (auto) 0.0 VBG pH 7.31 L VBG pCO2 57 VBG pO2 45 VBG HCO3 29 H VBG O2 Saturation 72.0 VBG Base Excess 2.3 Anion Gap 11 L Estim Creat Clear Calc 42.0 Estimated GFR 35 Random Glucose 90 Lactic Acid 0.6 Calcium 9.2 D Magnesium 2.3 Total Bilirubin 0.4 Direct Bilirubin 0.1 AST 31 ALT 25 Alkaline Phosphatase 112 Troponin I High Sens < 2.7 C-Reactive Protein 0.37 B-Natriuretic Peptide 87 Total Protein 6.1 L Albumin 3.8 Salicylates < 5.0 L Acetaminophen < 3 Ethyl Alcohol < 10 Influenza Type A (PCR) NEGATIVE Influenza Type B (PCR) NEGATIVE RSV RNA Qual (PCR) NEGATIVE SARS-CoV-2 RNA (RT-PCR) NEGATIVE 09/10/23 08:22 MCV 103.3 H MCH 32.2 MCHC 31.1 RDW 12.4 Plt Count 114 L MPV 10.6 Immature Gran % (Auto) 0.4 Neut % (Auto) 47.5 Lymph % (Auto) 39.5 [place] % (Auto) 12.4 H Eos % (Auto) 0.0 Baso % (Auto) 0.2 Lymph # (Auto) 1.8 [place] # (Auto) 0.6 Eos # (Auto) 0.0 Baso # (Auto) 0.0 Abs Immat Gran (auto) 0.02 Absolute Neuts (auto) 2.1 Absolute Nucleated RBC 0.000 Nucleated RBC % (auto) 0.0 VBG pH VBG pCO2 VBG pO2 VBG HCO3 VBG O2 Saturation VBG Base Excess Anion Gap 14 Estim Creat Clear Calc 58.1 Estimated GFR 52 Random Glucose 71 Lactic Acid Calcium 9.0 Magnesium Total Bilirubin Direct Bilirubin AST ALT Alkaline Phosphatase Troponin I High Sens C-Reactive Protein B-Natriuretic Peptide Total Protein Albumin Salicylates Acetaminophen Ethyl Alcohol Influenza Type A (PCR) Influenza Type B (PCR) RSV RNA Qual (PCR) SARS-CoV-2 RNA (RT-PCR) Assessment and Plan (1) Altered mental status: Status: Acute Plan 58F PMH bipolar, seizure disorder, gerd, chronic pain, opiate dependence, presented with ams Acute toxic metabolic encephalopathy Possible medication use versus acute psychiatric illness Holding opiates, monitor Hypotension Due to meds, not sepsis Continue midodrine Acute kidney injury on CKD 2 Back to baseline Seizure disorder Keppra Bipolar Olanzapine DVT prophylaxis with Lovenox Full Code reason for continued hospitalization: Not at baseline mental status Quality Stroke Does the patient have a stroke diagnosis?: No VTE Prior VTE?: No VTE Risk Level:: Medical - moderate - high VTE Device Contraindication: Treatment Not Indicated VTE Drug Contraindication: N/A - Med Ordered
[2023-09-10 12:01] LABS: Thyroid Stimulating Hormone 1.43 uIU/mL (0.32-4.0)
--- NOTE | 2023-09-10 12:05 | PC.NURSE ---
report given to MERLIN Us in overflow at this time.
[2023-09-10 12:14] LABS: Folate 14.3 ng/mL (> or = 4.0); Vitamin B12 972 pg/mL (200-900)
--- NOTE | 2023-09-10 12:21 | MHC.EDTECH ---
Patient given new edis and repositioned
[2023-09-10] MEDS: ondansetron HCL 4 MG/2 ML VIAL IVPUSH (14:43)
[2023-09-10] MEDS: Acetaminophen 325 MG TABLET 650 MG PO (14:44)
--- NOTE | 2023-09-10 14:49 | MHC.EDTECH ---
Patient used commode
[2023-09-10 14:54] LABS: Appearance Urine Clear; Color Urine Yellow; Glucose Urine UA Negative (Negative); Leukocyte Esterase Urine Trace (Negative); Nitrite Urine Negative (Negative); Specific Gravity - Urine 1.015 (1.005-1.025); UMIC TRIGGER UACC YES; Urine Blood Negative (Negative); Urine Ketones Negative (Negative); Urine Protein Negative (Neg-Trace)
[2023-09-10 15:01] LABS: Amphetamine Screen Urine Not Detected (Not Detect); Barbiturates, Urine Not Detected (Not Detect); Benzodiazepines Screen Urine Not Detected (Not Detect); Cannabinoid Screen Urine Not Detected (Not Detect); Cocaine Screen Urine Not Detected (Not Detect); Fentanyl, urine Not Detected (Not Detect); Opiate Screen Urine POSITIVE (Not Detect); Phencyclidine Screen Urine Not Detected (Not Detect)
[2023-09-10 16:49] LABS: Bacteria Urine None Seen (None Seen); Hyaline Casts Urine 0-2 /LPF (0-2); RBC Urine 0-2 /HPF (0-2); Squamous Epithelial Cell Urine 0-2 /HPF (0-2); WBC Urine 0-5 /HPF (0-5)
[2023-09-10] MEDS: 0.9 % Sodium Chloride Flush 3 ML SYRINGE IVFLUSH (17:19)
[2023-09-10] MEDS: oxyCODONE HCl Immed Release 5 MG TABLET PO ×2 (18:18→23:55)
[2023-09-10] MEDS: OLANZapine 5 MG TABLET PO (20:05)
[2023-09-10] MEDS: Enoxaparin Sodium 40 MG/0.4 ML SYRINGE SUBCUT (20:07)
[2023-09-10] MEDS: Ketorolac Tromethamine 15 MG/ML VIAL IM (21:19)
[2023-09-10] MEDS: Alteplase Cath Clear 2 MG/2 ML VIAL INTRACATH (22:07)
--- NOTE | 2023-09-10 23:27 | PC.NURSE ---
Nurses attempted peripheral IV previous shift unsuccessful, Pt has a L side Port-a-cath placed four years ago last time access was a week ago per patient. Md order to access port attempted once no return with 3/4 inch needle tolerated well, ED nurse attempted a second time with 1 inch needle tolerated well no return. order a one time dose 2mg alteplase, checked for return 30 min later no blood return. Dr. Charles notified. awaiting orders.
[2023-09-11 02:10] VITALS: BP 120/59; PULSE 64; RESP 16
[2023-09-11] MEDS: clonazePAM 0.5 MG TABLET PO (02:23)
[2023-09-11 03:53] VITALS: BP 100/60; PULSE 82; RESP 16; TEMP 36.1; O2SAT 93
[2023-09-11] MEDS: oxyCODONE HCl Immed Release 5 MG TABLET PO ×2 (04:14→10:30)
[2023-09-11 04:53] VITALS: RESP 16
--- NOTE | 2023-09-11 06:42 | PC.NURSE ---
contacted this night at 0022 via [employer] because patient repeatedly asking for oxycodone and IV Morphine. MD replied Morning team told to avoid opioids as she came in with encephalopathic due to opioids so cant give her Patient requested another MD and ultimately I messaged prepared foods supervisor and both she and MD saw patient who at that point wanted to leave AMA. Klonopin ordered and given as well as a one time dose at 0400 of 5mg oxy.
[2023-09-11 06:53] VITALS: BP 121/77; PULSE 58; RESP 17; TEMP 36.6; O2SAT 98
[2023-09-11] MEDS: Multivitamin TABLET 1 TAB PO (08:01)
[2023-09-11] MEDS: OLANZapine 2.5 MG TABLET PO (08:01)
[2023-09-11] MEDS: Midodrine HCl 2.5 MG TABLET PO (08:01)
[2023-09-11] MEDS: Montelukast Sodium 10 MG TABLET PO (08:01)
[2023-09-11] MEDS: levETIRAcetam 1,000 MG TABLET 1000 MG PO (08:01)
--- NOTE | 2023-09-11 09:02 | P.DS_ITS ---
DS: Providers Provider Date of Service: 09/11/23 Date of admission: 09/10/23 00:38 Primary care physician: Unknown Physician DS: Diagnosis Discharge Diagnosis (1) Altered mental status: Status: Acute DS: Summary Hospital Course Hospital Course: from initial hpi: 58-year-old female with pertinent history of bipolar disorder, seizure disorder, ?PNES, gastroesophageal reflux disease, chronic pain syndrome with chronic opioid use, migraine who was brought to the emergency department for evaluation of altered mentation. Patient is only grimacing to painful stimulus and unable to provide any history at the time of my evaluation. Patient has had multiple ER visits for altered mentation and multiple psychiatric hospitalizations. She was recently admitted on 09/05 with acute toxic metabolic encephalopathy likely in the setting of oxycodone and clonazepam use and discharged on 09/07. History obtained from ER provider, chart review and son. As per the son, the patient had a stressful conversation on the day of presentation with the son and patient was upset as a result of it. Subsequently later in the day, patient seemed confused. The son checked on her at night and she was unresponsive. The son does not know if the patient took extra pain medications. Unable to obtain review of systems. hospital course: Patient was admitted for acute toxic metabolic encephalopathy likely due to opiate and benzodiazepine unintentional overdose. These were held and patient's mental status returned to baseline. Patient was educated on medication compliance and avoiding extra doses. Her hypotension resolved. Her acute kidney injury on CKD 2 resolved. For seizure disorder was continued on Keppra. For bipolar was continued on olanzapine. Patient is back to baseline and will be discharged home. Time Attestation Discharge coordination time: Greater than 30 minutes Quality: Safe Use of Opioids Does Pt have an Active Cancer Diagnosis on the Problem List?: No Quality: Stroke Does the patient have a stroke diagnosis?: No Physical Exam Vital Signs: Vital Signs: Last Vital Signs Temp 98 F 09/11/23 06:53 Pulse 58 09/11/23 06:53 Resp 17 09/11/23 06:53 BP 121/77 09/11/23 06:53 Pulse Ox 98 09/11/23 06:53 O2 Del Method Room Air 09/11/23 06:53 BMI result Body Mass Index 26.6 General: AO X 3, no acute distress Resp: CTA bilateral, no accessory muscles used CVS: S1,S2,RRR GI: soft, non tender, non distended Neuro: motor grossly intact, alert Psych: appropriate affect, appropriate insight DS: Data Data Completed and Pending Labs on day of discharge: Laboratory Results - last 24 hr 09/09/23 09/10/23 09/10/23 21:58 08:22 14:43 Vitamin B12 972 H Folate 14.3 TSH 1.43 Urine Color Yellow Urine Appearance Clear Urine pH 6.0 Ur Specific [place] 1.015 Urine Protein Negative Urine Glucose (UA) Negative Urine Ketones Negative Urine Blood Negative Urine Nitrite Negative Ur Leukocyte Esterase Trace H Urine RBC 0-2 Urine WBC 0-5 Ur Squamous Epith Cells 0-2 Urine Bacteria None Seen Hyaline Casts 0-2 Urine Opiates Screen POSITIVE H Urine Fentanyl Screen Not Detected Ur Barbiturates Screen Not Detected Ur Phencyclidine Scrn Not Detected Ur Amphetamines Screen Not Detected U Benzodiazepines Scrn Not Detected Urine Cocaine Screen Not Detected U Marijuana (THC) Screen Not Detected Discharge Plan Discharge Anticipated Discharge Date/Time: 09/11/23 09:00 Patient Disposition: Home, Self-Care Discharge Diagnosis: unintentional overdose, [place] Referrals: Physician,Unknown J [Primary Care Provider] - 1 Week Discharge Medications: Continued ondansetron HCl 8 mg tablet 1 tab PO TID PRN (Reason: nausea/vomiting) loperamide 2 mg capsule 2 mg PO QID multivitamin Tablet 1 tab PO DAILY cetirizine 10 mg tablet 10 mg PO DAILY sumatriptan succinate 100 mg tablet 100 mg PO DAILY PRN (Reason: Migraine Headache) omeprazole 20 mg capsule,delayed release(DR/EC) 20 mg PO TID-QID PRN (Reason: meal grazing) epinephrine 0.3 mg/0.3 mL auto-injector 0.3 mg IM ONCE levetiracetam 1,000 mg tablet 1,000 mg PO BID duloxetine 60 mg capsule,delayed release(DR/EC) 60 mg PO BID Qty: 60 0RF olanzapine 2.5 mg tablet 2.5 mg PO TID montelukast 10 mg tablet 10 mg PO DAILY albuterol sulfate 90 mcg/actuation HFA aerosol inhaler 1 puff inhalation Q4H PRN (Reason: dyspnea) bumetanide 0.5 mg tablet 0.5 mg PO DAILY Qty: 90 0RF clonazepam 0.5 mg tablet 0.5 mg PO BID PRN (Reason: anxiety) midodrine 2.5 mg tablet 2.5 mg PO BID 30 Days Qty: 60 3RF Rx Instructions: do not give last dose of day after 6PM or within 4 hrs of bedtime olanzapine 5 mg tablet 5 mg PO BEDTIME oxycodone 10 mg tablet 10 mg PO 5XD Discharge Orders: Discharge Order (Routine); Ordered 09/11/23 Ordered By: Terry Ladd Diet: Advance to usual diet Activity on Discharge: As tolerated Stand Alone Forms: Patient Portal Discharge page Care Plan Goals: avoid episodes Health Concerns: medication abuse Plan of Treatment: only take meds as prescribed Assessment: see above
--- NOTE | 2023-09-11 09:31 | MHC.CM.PN ---
pt is being dcd today called [employer] answering service and faxed dc summary
--- NOTE | 2023-09-11 11:53 | PC.NURSE ---
Unable to flush chest port w heparin flush. MD Ladd aware. Deaccesed port. Per Pt, will follow up outpatient w her oncology clinic regarding port.
[2023-09-14 10:31] LABS: Levetiracetam Keppra 58.1 mcg/mL (6.0-46.0)
== END 2023-09-11 12:27 | disposition home health service (06) | DRG 917 ==
LOC: HO.ED 09-10 01:00 → HO.EDOVER 09-10 01:05 → HO.S3 09-10 16:25
PROVIDERS: Admitting Provider Student in an Organized Health Care Education/Training Program; Emergency Provider Emergency Medicine; PCP Family Medicine; Visit Provider Internal Medicine
DX: T42.4X1A Poisoning by benzodiazepines, accidental (unintentional), initial encounter (principal); G92.8 Other toxic encephalopathy; N17.9 Acute kidney failure, unspecified; T40.601A Poisoning by unspecified narcotics, accidental (unintentional), initial encounter; N18.2 Chronic kidney disease, stage 2 (mild); I95.2 Hypotension due to drugs; G40.909 Epilepsy, unspecified, not intractable, without status epilepticus; G89.4 Chronic pain syndrome; F31.9 Bipolar disorder, unspecified; Z20.822 Contact with and (suspected) exposure to COVID-19; Z91.041 Radiographic dye allergy status; Z91.040 Latex allergy status; Z79.899 Other long term (current) drug therapy
CPT/HCPCS: 0241U; 36415; 70450; 80048; 80076; 80143; 80177; 80179; 80307; 81001; 82607; 82746; 82803; 83605; 83735; 83880; 84443; 84484; 85025; 86140; 93005; 99285; J1650; J1885; J1953; J2405; J2997; J7120

== ENCOUNTER → 2023-09-09 21:13 | Outpatient (BNV) | payer MEDICARE, MEDICAID, SELFPAY | PROVIDERS: Admitting Provider Student in an Organized Health Care Education/Training Program; Emergency Provider Emergency Medicine; Visit Provider Internal Medicine | DX: R00.1 Bradycardia, unspecified (principal) | CPT/HCPCS: 93010 ==

== ENCOUNTER → 2023-09-10 00:37 | Outpatient (BNV) | payer MEDICARE, MEDICAID, SELFPAY | PROVIDERS: Emergency Provider Emergency Medicine; Visit Provider Student in an Organized Health Care Education/Training Program | DX: R41.82 Altered mental status, unspecified (principal) | CPT/HCPCS: 99222; 99238; 99499 ==

== ENCOUNTER 2023-10-14 14:38 | Emergency (ER) | payer MEDICARE, MEDICAID, SELFPAY ==
[2023-10-14 14:50] VITALS: BP 144/88; PULSE 86; O2SAT 98
--- NOTE | 2023-10-14 14:53 | ED_ITS ---
HPI - Seizure General Chief Complaint: General Medical Stated Complaint: SEIZURE Time Seen by Provider: 10/14/23 14:50 Source: patient Mode of arrival: ambulatory Limitations: no limitations History of Present Illness HPI Narrative: 58-year-old female past medical history of seizures on Keppra bipolar disorder psychogenic nonepileptic seizures gases have reflux disease chronic pain syndrome chronic opioid abuse migraines has been admitted for altered mental status as well as acute kidney injury within the past month. Presents emergency department after she states she had a seizure. She states she has had a psychogenic non well as regular seizures and has a migraine. MD complaint: seizure and possible seizure Related Data Home Medications ?Medication ?Instructions ?Recorded ?Confirmed ondansetron HCl 8 mg tablet 1 tab PO TID PRN nausea/vomiting 01/29/21 09/09/23 cetirizine 10 mg tablet 10 mg PO DAILY 04/28/23 09/09/23 epinephrine 0.3 mg/0.3 mL 0.3 mg IM ONCE anaphylaxis 04/28/23 09/09/23 injection, auto-injector levetiracetam 1,000 mg tablet 1,000 mg PO BID 04/28/23 09/09/23 loperamide 2 mg capsule 2 mg PO QID diarrhea 04/28/23 09/09/23 multivitamin 1 tab PO DAILY 04/28/23 09/09/23 omeprazole 20 mg capsule,delayed 20 mg PO TID-QID PRN meal grazing 04/28/23 09/09/23 release sumatriptan succinate 100 mg tablet 100 mg PO DAILY PRN Migraine 04/28/23 09/09/23 Headache clonazepam 0.5 mg tablet 0.5 mg PO BID PRN anxiety 06/01/23 09/09/23 olanzapine 5 mg tablet 5 mg PO BEDTIME 08/03/23 09/09/23 oxycodone 10 mg tablet 10 mg PO 5XD 08/03/23 09/09/23 albuterol sulfate 90 mcg/actuation 1 puff inhalation Q4H PRN dyspnea 09/06/23 09/09/23 aerosol inhaler montelukast 10 mg tablet 10 mg PO DAILY 09/06/23 09/09/23 olanzapine 2.5 mg tablet 2.5 mg PO TID 09/06/23 09/09/23 Previous Rx's ?Medication ?Instructions ?Recorded duloxetine 60 mg capsule,delayed 60 mg PO BID #60 caps 06/10/23 release bumetanide 0.5 mg tablet 0.5 mg PO DAILY #90 tabs 09/07/23 midodrine 2.5 mg tablet 2.5 mg PO BID #60 tabs 09/28/23 Allergies Allergy/AdvReac Type Severity Reaction Status Date / Time bee pollen [Bee Stings] Allergy Mild ANAPHYLAXIS Verified 10/14/23 15:00 codeine [Codeine] Allergy Mild ANAPHYLAXIS Verified 10/14/23 15:00 Penicillins Allergy Mild UNKNOWN Verified 10/14/23 15:00 aspirin [ASA] Allergy Unknown Verified 10/14/23 15:00 ciprofloxacin [From Cipro] Allergy Rash Verified 10/14/23 15:00 Iodinated Contrast Media Allergy Hives Verified 10/14/23 15:00 [Contrast Dye] latex Allergy Rash Verified 10/14/23 15:00 macadamia nut Allergy Anaphylaxis Verified 10/14/23 15:00 Sulfa (Sulfonamide Allergy Anaphylaxis Verified 10/14/23 15:00 Antibiotics) sulfamethoxazole Allergy Anaphylaxis Verified 10/14/23 15:00 [From Bactrim] trimethoprim [From Bactrim] Allergy Anaphylaxis Verified 08/03/23 09:44 bee stings Allergy Unknown anaphylaxis Uncoded 09/02/11 00:00 Codeine Phosphate Allergy Unknown stomach Uncoded 09/02/11 00:00 upset Penicillin Allergy Unknown anaphylaxis Uncoded 09/02/11 00:00 Review of Systems 2 Review of Systems: Review of systems: General: Patient denies any fever chills recent illness or falls Musculoskeletal: Denies back pain or body aches or other injuries HEENT: denies headache, runny nose, ear pain Respiratory: denies shortness of breath, cough Cardiovascular: no chest pain or palpitations : denies dysuria, frequency Abdomen: no nausea vomiting denies abdominal pain Extremities: no swelling, no pain Skin: no diaphoresis Yes all other systems are reviewed and are negative PMFSH Past Medical History Medical History Orthostatic hypotension Seizure disorder History of prolonged Q-T interval on ECG Psychogenic nonepileptic seizure CKD (chronic kidney disease) stage 3, GFR 30-59 ml/min COPD (chronic obstructive pulmonary disease) GERD (gastroesophageal reflux disease) Port-A-Cath in place Malabsorption Compression fracture of C3 vertebra Self-catheterizes urinary bladder Neuropathy SIADH (syndrome of inappropriate ADH production) Chronic anemia Enlarged liver Enlarged heart History of atrial fibrillation Polysubstance abuse Von Willebrand disease Factor V deficiency Depression Uterine cancer Breast cancer Migraines Asthma Seizure Surgical History H/O knee surgery Hx of cholecystectomy History of hysterectomy H/O gastric bypass Social History Social History Household Members: Children Household Members Other:: One son Housing: House Housing Other:: House has ramps Do you presently have visiting nurse or other home services: Yes ([facility] services 3x/week, [employer]IOUS ACTIVITIES DIRECTOR 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) Unable to assess alcohol history related to: Unknown Alcohol intake: unknown Comment: 352 Patient Tobacco Use Status: Current someday Tobacco user Tobacco use type: Cigarette Cigarettes Per Day: 2 e-Cigarette/Vaping Use: Never Used Advance Directives: No Advance Directives Information Provided: No service: No Physical Exam 2 Vital Signs: Vital Signs: Last Vital Signs Temp 98.0 F 10/14/23 14:58 Pulse 87 10/14/23 14:58 Resp 16 10/14/23 14:58 BP 120/71 10/14/23 14:58 Pulse Ox 94 10/14/23 14:58 O2 Del Method Room Air 10/14/23 14:58 BMI result Body Mass Index 30.7 Neurological exam: CN II- XII tested. Patient is alert and oriented to person place and time. Patient has no dysphagia or dysarthia, denies good vision in all four vision [place] no nystagmus on exam, good strength to upper and lower extremities with normal reflexes to brachioradialis, wrist, patella and achilles. Negative romberg, good finger to nose and heel to jackson. General: Well-appearing well-nourished in no signs of distress HEENT: Normocephalic atraumatic Neck: No signs of JVD, no masses no tenderness or lymphadenopathy Cardiovascular: Regular rate and rhythm Respiratory: Clear to auscultation bilaterally Abdomen: Soft nontender no masses Extremities: Normal pedal pulses no signs of edema Skin: Dry warm no rashes Back: No tenderness full ROM Course Reevaluation(s) Reevaluation #1: Patient sleeping comfortably in the room I did arouse her she states she is feeling much better and just wants to go home. Labs were all normal patient does have slight ROBEL but is baseline for the patient. Medications Administered Discontinued Medications Generic Name Dose Route Start Last Admin Trade Name Juliusq PRN Reason Stop Dose Admin Acetaminophen 975 mg 10/14/23 15:03 10/14/23 15:49 Acetaminophen 325 Mg Tablet PO 10/14/23 15:04 975 mg ONCE ONE Administration Diphenhydramine HCl 25 mg 10/14/23 15:03 10/14/23 15:48 Diphenhydramine Hcl 50 Mg/Ml Vial IVPUSH 10/14/23 15:04 25 mg ONCE ONE Administration Haloperidol Lactate 5 mg 10/14/23 15:03 10/14/23 15:48 Haloperidol Lactate 5 Mg/Ml Vial IVPUSH 10/14/23 15:04 5 mg STAT STA Administration Sodium Chloride 1,000 mls @ 999 mls/hr 10/14/23 15:00 10/14/23 15:03 Ns IV 10/14/23 16:00 999 mls/hr .Q1H1M TAMARA Administration Lorazepam 1 mg 10/14/23 15:03 10/14/23 15:48 Lorazepam 2 Mg/Ml Vial IVPUSH 10/14/23 15:04 1 mg ONCE ONE Administration Medical Decision Making Medical Decision Making [facility] Narrative: I will check labs patient has headache he recently I will check labs if the patient fluids and reassess I will give patient Haldol Tylenol Benadryl fluids Differential Diagnosis Differential Diagnoses: The differential diagnosis associated with the presentation includes Seizure psychogenic now only 2 seizures dehydration status mentioned bipolar electrolyte hyperglycemia I will Admission/Observation Consideration of admission/observation: Escalation of care including admission/observation considered Lab Data [facility] Lab Attestation statement: I reviewed the patient's lab results. 10/14/23 15:45 10/14/23 15:45 Labs: Lab Results 10/14/23 Range/Units 15:45 WBC 7.4 (4.8-10.8) X10*3/uL RBC 3.79 L (4.20-5.50) X10*6/uL Hgb 12.3 (12.0-16.0) g/dl Hct 37.9 (37.0-47.0) % MCV 100.0 H (80.0-98.0) fL MCH 32.5 (27.0-33.0) pg MCHC 32.5 (31.0-35.0) g/dl RDW 12.8 (11.0-16.0) % Plt Count 155 L D (160-400) X10*3/uL MPV 10.0 (9.4-12.3) fL Immature Gran % (Auto) 0.1 (0.0-0.4) % Neut % (Auto) 73.9 H (45-73) % Lymph % (Auto) 18.9 L (20-40) % [place] % (Auto) 7.1 (2-11) % Eos % (Auto) 0.0 (0-4) % Baso % (Auto) 0.0 (0-2) % Lymph # (Auto) 1.4 (1.2-4.9) X10*3/uL [place] # (Auto) 0.5 (0.1-1.2) X10*3/uL Eos # (Auto) 0.0 (0.0-0.4) X10*3/uL Baso # (Auto) 0.0 (0.0-0.2) X10*3/uL Abs Immat Gran (auto) 0.01 (0.00-0.03) X10*3/uL Absolute Neuts (auto) 5.4 (2.0-8.3) x10*3/uL Absolute Nucleated RBC 0.000 (0.0-0.012) X10*3/uL Nucleated RBC % (auto) 0.0 (0.0-0.2) /100WBC Sodium 142 (135-145) mmol/L Potassium 4.0 (3.3-5.1) mmol/L Chloride 115 H (96-108) mmol/L Carbon Dioxide 20 L (22-29) mmol/L Anion Gap 11 L (12-20) BUN 30 H (9-16) mg/dL Creatinine 1.41 H (0.5-1.4) mg/dL Estim Creat Clear Calc 43.1 Estimated GFR 38 Random Glucose 103 (60-115) mg/dL Lactic Acid 0.9 (0.5-2.0) mmol/L Calcium 8.8 (8.4-10.2) mg/dL Total Bilirubin 0.3 (0.0-1.0) mg/dL Direct Bilirubin 0.2 (0.0-0.5) mg/dL AST 23 (5-31) U/L ALT 24 (0-31) U/L Alkaline Phosphatase 119 H (39-117) U/L Total Protein 6.2 L (6.5-8.0) g/dL Albumin 3.9 (3.5-5.0) g/dL Lipase 32 (8-78) U/L Ethyl Alcohol < 10 mg/dL Independent Interpretation I performed an independent interpretation of an: EKG and Rhythm Strip Interpretation: Rate 70 normal sinus rhythm normal intervals no signs of ischemia unchanged from previous SC intervals normal QT intervals normal there is no right bundle-branch block and V1 or V2 concerning for Brugada syndrome there are no Q-waves or LVH concerning for HOCM and there is no epsilon wave suggest right ventricular arrhythmogenic hypertrophy External Record Review External record reviewed: Inpatient record and Office record Chronic Conditions Bipolar disorder psychogenic nonepileptic seizures versus seizure disorder GERD chronic pain syndrome with chronic opioid use and migraines Discharge Plan Discharge Clinical Impression: Psychogenic nonepileptic seizure, Headache Patient Disposition: Home, Self-Care Instructions: Acute Headache (DC) Additional Instructions: You were seen today for a headache and seizure. You had labs checked and regular medications. Please call follow-up with her doctor if you have any other concerns please do not hesitate to come back to the emergency department. Prescriptions: No Action midodrine 2.5 mg tablet 2.5 mg PO BID Qty: 60 3RF ondansetron HCl 8 mg tablet 1 tab PO TID PRN (Reason: nausea/vomiting) loperamide 2 mg capsule 2 mg PO QID multivitamin Tablet 1 tab PO DAILY cetirizine 10 mg tablet 10 mg PO DAILY sumatriptan succinate 100 mg tablet 100 mg PO DAILY PRN (Reason: Migraine Headache) omeprazole 20 mg capsule,delayed release(DR/EC) 20 mg PO TID-QID PRN (Reason: meal grazing) epinephrine 0.3 mg/0.3 mL auto-injector 0.3 mg IM ONCE levetiracetam 1,000 mg tablet 1,000 mg PO BID duloxetine 60 mg capsule,delayed release(DR/EC) 60 mg PO BID Qty: 60 0RF olanzapine 2.5 mg tablet 2.5 mg PO TID montelukast 10 mg tablet 10 mg PO DAILY albuterol sulfate 90 mcg/actuation HFA aerosol inhaler 1 puff inhalation Q4H PRN (Reason: dyspnea) bumetanide 0.5 mg tablet 0.5 mg PO DAILY Qty: 90 0RF clonazepam 0.5 mg tablet 0.5 mg PO BID PRN (Reason: anxiety) olanzapine 5 mg tablet 5 mg PO BEDTIME oxycodone 10 mg tablet 10 mg PO 5XD Print Language: Khmer
--- NOTE | 2023-10-14 14:56 | ECG_ITS ---
Test Reason : SEIZURE Blood Pressure : / mmHG Vent. Rate : 070 BPM Atrial Rate : 070 BPM P-R Int : 126 ms QRS Dur : 076 ms QT Int : 416 ms P-R-T Axes : 045 -12 020 degrees QTc Int : 449 ms Normal sinus rhythm Normal ECG When compared with ECG of 09-SEP-2023 21:28, No significant change was found Referred By: Marvin Nunez Electronically Signed By:PAIGE EVANGELISTA MD
[2023-10-14 14:58] VITALS: BP 120/71; PULSE 87; RESP 16; TEMP 36.7; O2SAT 94; BMI 30.7
[2023-10-14] MEDS: 0.9 % Sodium Chloride 1,000 ML 999 ML IV (15:03)
[2023-10-14] MEDS: diphenhydrAMINE HCL 50 MG/ML VIAL 25 MG IVPUSH (15:48)
[2023-10-14] MEDS: Haloperidol Lactate 5 MG/ML VIAL IVPUSH (15:48)
[2023-10-14] MEDS: LORazepam 2 MG/ML VIAL 1 MG IVPUSH (15:48)
[2023-10-14] MEDS: Acetaminophen 325 MG TABLET 975 MG PO (15:49)
[2023-10-14 15:51] LABS: MANUAL DIFF FLAG NO
--- NOTE | 2023-10-14 15:51 | PC.NURSE ---
alert and oriented, respirations even and unlabored. patient ambulated to bathroom using walker with strong, steady gait. labs obtained and sent, urine obtained and sent. medicated per the MAR with first liter of fluids infusing. call pelletier within reach.
[2023-10-14 15:55] LABS: Hematocrit 37.9 % (37.0-47.0); Hemoglobin 12.3 g/dl (12.0-16.0); Imm Gran Abs Auto 0.01 X10*3/uL (0.00-0.03); Imm Gran Pct Auto 0.1 % (0.0-0.4); Lymphocytes Absolute Auto 1.4 X10*3/uL (1.2-4.9); Lymphocytes Percent Auto 18.9 % (20-40); Mean Corpuscular HGB Conc 32.5 g/dl (31.0-35.0); Mean Corpuscular Hemoglobin 32.5 pg (27.0-33.0); Monocytes Absolute Auto 0.5 X10*3/uL (0.1-1.2); Monocytes Percent Auto 7.1 % (2-11); Neutrophils Absolute Auto 5.4 x10*3/uL (2.0-8.3); Neutrophils Percent Auto 73.9 % (45-73); Platelet Count 155 X10*3/uL (160-400); Red Blood Count 3.79 X10*6/uL (4.20-5.50); Red Cell Distribution Width 12.8 % (11.0-16.0); White Blood Count 7.4 X10*3/uL (4.8-10.8)
[2023-10-14 16:09] LABS: Lactic Acid 0.9 mmol/L (0.5-2.0)
[2023-10-14 16:10] LABS: Ethanol < 10 mg/dL
[2023-10-14 16:14] LABS: Alanine Aminotransferase 24 U/L (0-31); Albumin Level 3.9 g/dL (3.5-5.0); Alkaline Phosphatase 119 U/L (39-117); Anion Gap 11 (12-20); Aspartate Amino Transferase 23 U/L (5-31); Bilirubin Direct 0.2 mg/dL (0.0-0.5); Bilirubin Total 0.3 mg/dL (0.0-1.0); Blood Urea Nitrogen 30 mg/dL (9-16); Calcium 8.8 mg/dL (8.4-10.2); Carbon Dioxide 20 mmol/L (22-29); Chloride 115 mmol/L (96-108); Creatinine Clr Calc Pharmacy 43.1; Estimated Glomerular Filt Rate 38; Glucose Random 103 mg/dL (60-115); Lipase 32 U/L (8-78); Sodium 142 mmol/L (135-145); Total Protein 6.2 g/dL (6.5-8.0)
[2023-10-14 16:52] VITALS: BP 120/71; PULSE 87; RESP 16; TEMP 36.7; O2SAT 94
[2023-10-14 18:16] LABS: Amphetamine Screen Urine POSITIVE (Not Detect); Barbiturates, Urine Not Detected (Not Detect); Benzodiazepines Screen Urine Not Detected (Not Detect); Cannabinoid Screen Urine Not Detected (Not Detect); Cocaine Screen Urine Not Detected (Not Detect); Fentanyl, urine Not Detected (Not Detect); Opiate Screen Urine POSITIVE (Not Detect); Phencyclidine Screen Urine Not Detected (Not Detect)
== END 2023-10-14 17:21 | disposition home or self-care (01) ==
PROVIDERS: Emergency Provider Student in an Organized Health Care Education/Training Program; PCP Family Medicine
DX: F44.5 Conversion disorder with seizures or convulsions (principal); R51.9 Headache, unspecified; N18.30 Chronic kidney disease, stage 3 unspecified; J45.909 Unspecified asthma, uncomplicated; Z79.899 Other long term (current) drug therapy; Z88.1 Allergy status to other antibiotic agents; Z88.2 Allergy status to sulfonamides; Z88.5 Allergy status to narcotic agent
CPT/HCPCS: 36415; 80048; 80076; 80307; 83605; 83690; 85025; 93005; 96374; 96375; 99284; 99285; J1200; J1630; J2060

== ENCOUNTER → 2023-10-14 14:56 | Outpatient (BNV) | payer MEDICARE, MEDICAID, SELFPAY | PROVIDERS: Emergency Provider Student in an Organized Health Care Education/Training Program; PCP Family Medicine; Visit Provider Internal Medicine Cardiovascular Disease | DX: G40.909 Epilepsy, unspecified, not intractable, without status epilepticus (principal) | CPT/HCPCS: 93010 ==

== ENCOUNTER 2023-11-09 13:29 | Outpatient (AMB) | payer MEDICARE, MEDICAID, SELFPAY ==
--- NOTE | 2023-11-09 13:35 | HO.NEPHOV ---
Vital Signs 11/09/23 13:38 Height 5 ft 3 in Weight 162 lb 8 oz BMI 28.8 BP 88/60 L Blood Pressure Location Rt brachial Position Sitting Pulse 99 Pulse Source Pulse Oximeter Pulse Oximetry (%) 95 Oxygen Delivery Method Room Air Intake Visit Reasons: 3 month follow up/ Confirmed Central Lab Technician Required: No Accompanied by: Self / Same As Patient Allergies bee pollen [Bee Stings] Allergy (Mild, Verified 11/09/23 13:41) ANAPHYLAXIS codeine [Codeine] Allergy (Mild, Verified 11/09/23 13:41) ANAPHYLAXIS Penicillins Allergy (Mild, Verified 11/09/23 13:41) UNKNOWN aspirin [ASA] Allergy (Verified 11/09/23 13:41) Unknown ciprofloxacin [From Cipro] Allergy (Verified 11/09/23 13:41) Rash Iodinated Contrast Media [Contrast Dye] Allergy (Verified 11/09/23 13:41) Hives latex Allergy (Verified 11/09/23 13:41) Rash macadamia nut Allergy (Verified 11/09/23 13:41) Anaphylaxis Sulfa (Sulfonamide Antibiotics) Allergy (Verified 11/09/23 13:41) Anaphylaxis sulfamethoxazole [From Bactrim] Allergy (Verified 11/09/23 13:41) Anaphylaxis trimethoprim [From Bactrim] Allergy (Verified 11/09/23 13:41) Anaphylaxis bee stings Allergy (Unknown, Uncoded 09/02/11 00:00) anaphylaxis Codeine Phosphate Allergy (Unknown, Uncoded 09/02/11 00:00) stomach upset Penicillin Allergy (Unknown, Uncoded 09/02/11 00:00) anaphylaxis HPI Comments Details: I had the privilege of seeing Jayda for her chronic kidney disease. Her seizures are better controlled . She had been having significant pedal edema forcing her to take high-dose Bumex with resultant improvement. She remains on Bumex dose 0.5 mg twice daily. Her breast cancer is closely monitored by [facility]. She is not on any new medications. She denies any chest pain, shortness of breath, nausea, vomiting, diarrhea, weight gain, orthopnea or paroxysmal nocturnal dyspnea. She is not taking any nonsteroidal anti-inflammatory medications. She had orthostatic symptoms which has improved on midodrine. She has history of atrial fibrillation which has been under control. She had a seizure and was kept in hospital last night. She had right knee surgery. [facility] Medical History Orthostatic hypotension Seizure disorder History of prolonged Q-T interval on ECG Psychogenic nonepileptic seizure CKD (chronic kidney disease) stage 3, GFR 30-59 ml/min COPD (chronic obstructive pulmonary disease) GERD (gastroesophageal reflux disease) Port-A-Cath in place Malabsorption Compression fracture of C3 vertebra Self-catheterizes urinary bladder Neuropathy SIADH (syndrome of inappropriate ADH production) Chronic anemia Enlarged liver Enlarged heart History of atrial fibrillation Polysubstance abuse Von Willebrand disease Factor V deficiency Depression Uterine cancer Breast cancer Migraines Asthma Seizure Surgical History H/O knee surgery Hx of cholecystectomy History of hysterectomy H/O gastric bypass Social History Household Members: Children Household Members Other:: One son Housing: House Housing Other:: House has ramps Do you presently have visiting nurse or other home services: Yes ([facility] services 3x/week, [employer] OF [employer]ISING 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) Unable to assess alcohol history related to: Unknown Alcohol intake: unknown Comment: 352 Patient Tobacco Use Status: Current someday Tobacco user Tobacco use type: Cigarette Cigarettes Per Day: 2 e-Cigarette/Vaping Use: Never Used service: No Physical Exam Vital Signs: Last Vital Signs Pulse 99 11/09/23 13:38 BP 88/60 L 11/09/23 13:38 Pulse Ox 95 11/09/23 13:38 Oxygen Delivery Method Room Air 11/09/23 13:38 BMI result Body Mass Index 28.8 Const General: comfortable and no acute distress Orientation/consciousness: patient oriented x3 HEENT Head: Yes normocephalic Mouth: Normal oral and palatal mucosa present Eyes EOM: EOMs intact bilaterally Neck Neck: Yes supple Resp Auscultation: clear to auscultation bilaterally Cardio Jugular venous distension: no JVD Rate: regular rate GI Palpation (GI): Soft to palpation Auscultation: normal bowel sounds General: Yes no CVA tenderness Back/Spine/Pelvis Back: no CVA tenderness Skin General skin exam: no rashes or lesions noted Neuro General: patient oriented x3 and moves all extremities Extrem General: Yes no pedal edema Results Reviewed Nephrology Results: Hgb 12.3 g/dl (12.0-16.0) 10/14/23 WBC 7.4 X10*3/uL (4.8-10.8) 10/14/23 Plt Count 155 X10*3/uL (160-400) L 10/14/23 Sodium 142 mmol/L (135-145) 10/14/23 Potassium 4.0 mmol/L (3.3-5.1) 10/14/23 Chloride 115 mmol/L (96-108) H 10/14/23 Carbon Dioxide 20 mmol/L (22-29) L 10/14/23 BUN 30 mg/dL (9-16) H 10/14/23 Creatinine 1.41 mg/dL (0.5-1.4) H 10/14/23 Calcium 8.8 mg/dL (8.4-10.2) 10/14/23 Urine Protein Negative mg/dL (Neg-Trace) 09/10/23 Assessment & Plan Assessment & Plan (1) Acute kidney injury: Code(s): N17.9 - Acute kidney failure, unspecified Category: Medical (2) Orthostatic hypotension: Code(s): I95.1 - Orthostatic hypotension Category: Medical (3) CKD stage 3a, GFR 45-59 ml/min: Code(s): N18.31 - Chronic kidney disease, stage 3a Category: Medical Plan Jayda has a chronic kidney disease but has H/O recurrent ROBEL following excessive diuresis. She had ROBEL but her serum creatinine is better now. Her volume status got optimized and is on Bumex 0.5 mg twice daily. She is not consuming excess salt. I asked her not to take excessive diuretics. I increased her midodrine to 5 mg twice daily. She is avoiding nonsteroidal anti-inflammatory medications. She should maintain good hydration. I asked her to repeat blood work soon. She will be seen in office in follow-up Orders: Orders Blood Urea Nitrogen Today N17.9 - Acute kidney failure, unspecified, N18.31 - Chronic kidney disease, stage 3a Creatinine Today N17.9 - Acute kidney failure, unspecified, N18.31 - Chronic kidney disease, stage 3a Calcium Today N17.9 - Acute kidney failure, unspecified, N18.31 - Chronic kidney disease, stage 3a Electrolytes Today N17.9 - Acute kidney failure, unspecified, N18.31 - Chronic kidney disease, stage 3a Medications: Changed From midodrine 2.5 mg PO BID 60 tabs 3RF To midodrine 5 mg PO BID 60 tabs 5RF Coding Level of Care Code Est Pt Level 4 (02278) Diagnoses Acute kidney injury N17.9 Orthostatic hypotension I95.1 CKD stage 3a, GFR 45-59 ml/min N18.31
[2023-11-09 13:38] VITALS: BP 88/60; PULSE 99; O2SAT 95; BMI 28.8
== END 2023-11-09 14:13 | disposition home or self-care (01) ==
PROVIDERS: Visit Provider Internal Medicine Nephrology
DX: N17.9 Acute kidney failure, unspecified (principal); I95.1 Orthostatic hypotension; N18.31 Chronic kidney disease, stage 3a
CPT/HCPCS: 99214

== ENCOUNTER → 2023-11-09 13:29 | Outpatient (BNVA) | payer MEDICARE, MEDICAID, SELFPAY | PROVIDERS: Visit Provider Internal Medicine Nephrology | DX: N17.9 Acute kidney failure, unspecified (principal); R56.9 Unspecified convulsions; I95.1 Orthostatic hypotension; N18.31 Chronic kidney disease, stage 3a | CPT/HCPCS: 99212 ==

== ENCOUNTER 2023-12-08 18:21 | Inpatient (IN) | payer MEDICARE, MEDICAID, SELFPAY ==
--- NOTE | ~2023-12-08 | CT_ITS ---
EXAMINATION: CT HEAD WITHOUT CONTRAST CLINICAL INFORMATION: Unresponsive. COMPARISON: CT head dated 09/09/2023. TECHNIQUE: Contiguous axial imaging was performed from the skull base to vertex without intravenous administration of contrast. This CT examination was performed using dose optimization techniques as appropriate, variously including the following: *Automated exposure control *Adjustment of mA and/or kV according to patient size (this includes techniques or standardized protocols for targeted exams where dose is matched to indication/reason for exam; i.e. extremities or head) *Use of iterative reconstruction technique DLP: 649 mGy-cm FINDINGS: There is no acute intracranial hemorrhage. There is no evidence of acute/subacute cerebral or cerebellar infarction. There is no midline shift or mass effect. There is no extra-axial fluid collection. There is probable mild small vessel ischemic change. The ventricles are normal in size. The orbits are symmetric and within normal limits. The calvarium is intact. The paranasal sinuses are clear. There are very small inferior mastoid air cell effusions bilaterally. CT/CT head/brain wo IV con IMPRESSION: No acute intracranial pathology.
[2023-12-08 18:37] VITALS: BP 101/62; BP 116/82; PULSE 88; PULSE 90; RESP 20; TEMP 37.2; O2SAT 96; O2SAT 98; BMI 25.0
--- NOTE | 2023-12-08 18:58 | ECG_ITS ---
Test Reason : AMS Blood Pressure : / mmHG Vent. Rate : 056 BPM Atrial Rate : 056 BPM P-R Int : 160 ms QRS Dur : 082 ms QT Int : 478 ms P-R-T Axes : 058 -13 065 degrees QTc Int : 461 ms Sinus bradycardia Otherwise normal ECG When compared with ECG of 14-OCT-2023 15:12, No significant change was found Referred By: Lucina Fernandes Electronically Signed By:MARITZA TEJADA
--- NOTE | 2023-12-08 19:05 | ED_ITS ---
HPI - Altered Mental Status General Chief Complaint: Altered Mental Status Stated Complaint: AMS X 30 MINS, HX EPILEPSY, ?SEIZURE Time Seen by Provider: 12/08/23 18:57 Source: EMS Mode of arrival: EMS Limitations: altered mental status History of Present Illness ED Provider: Dr. Lucina Fernandes HPI narrative: Patient comes to the emergency room via ambulance from home. According to EMS, the patient's son who is the patient's healthcare proxy and candy catcher reported that the patient was acting strange, walking around, pacing. Patient states that the patient usually accident way after having a seizure. There was no witnessed seizure today. When patient arrived to the emergency room, patient is sleeping, difficult to arouse, vitals stable. Reviewing patient's past medical records. Patient has presented several times to the ED in a similar way. Usually secondary to acute toxic metabolic encephalopathy secondary to opiate and benzodiazepine unintentional overdose Related Data Home Medications ?Medication ?Instructions ?Recorded ?Confirmed ondansetron HCl 8 mg tablet 1 tab PO TID PRN nausea/vomiting 01/29/21 09/09/23 cetirizine 10 mg tablet 10 mg PO DAILY 04/28/23 09/09/23 epinephrine 0.3 mg/0.3 mL 0.3 mg IM ONCE anaphylaxis 04/28/23 09/09/23 injection, auto-injector levetiracetam 1,000 mg tablet 1,000 mg PO BID 04/28/23 09/09/23 loperamide 2 mg capsule 2 mg PO QID diarrhea 04/28/23 09/09/23 multivitamin 1 tab PO DAILY 04/28/23 09/09/23 omeprazole 20 mg capsule,delayed 20 mg PO TID-QID PRN meal grazing 04/28/23 09/09/23 release sumatriptan succinate 100 mg tablet 100 mg PO DAILY PRN Migraine 04/28/23 09/09/23 Headache clonazepam 0.5 mg tablet 0.5 mg PO BID PRN anxiety 06/01/23 09/09/23 olanzapine 5 mg tablet 5 mg PO BEDTIME 08/03/23 09/09/23 oxycodone 10 mg tablet 10 mg PO 5XD 08/03/23 09/09/23 albuterol sulfate 90 mcg/actuation 1 puff inhalation Q4H PRN dyspnea 02/27/24 03/01/24 aerosol inhaler montelukast 10 mg tablet 10 mg PO DAILY 09/06/23 09/09/23 olanzapine 2.5 mg tablet 2.5 mg PO TID 09/06/23 09/09/23 bumetanide 0.5 mg tablet 2 mg PO BID 11/09/23 Previous Rx's ?Medication ?Instructions ?Recorded duloxetine 60 mg capsule,delayed 60 mg PO BID #60 caps 06/10/23 release midodrine 5 mg tablet 5 mg PO BID #60 tabs 11/09/23 Allergies Allergy/AdvReac Type Severity Reaction Status Date / Time bee pollen [Bee Stings] Allergy Mild ANAPHYLAXIS Verified 12/08/23 18:40 codeine [Codeine] Allergy Mild ANAPHYLAXIS Verified 11/09/23 13:41 Penicillins Allergy Mild UNKNOWN Verified 11/09/23 13:41 aspirin [ASA] Allergy Unknown Verified 11/09/23 13:41 ciprofloxacin [From Cipro] Allergy Rash Verified 11/09/23 13:41 Iodinated Contrast Media Allergy Hives Verified 11/09/23 13:41 [Contrast Dye] latex Allergy Rash Verified 11/09/23 13:41 macadamia nut Allergy Anaphylaxis Verified 11/09/23 13:41 Sulfa (Sulfonamide Allergy Anaphylaxis Verified 11/09/23 13:41 Antibiotics) sulfamethoxazole Allergy Anaphylaxis Verified 11/09/23 13:41 [From Bactrim] trimethoprim [From Bactrim] Allergy Anaphylaxis Verified 11/09/23 13:41 bee stings Allergy Unknown anaphylaxis Uncoded 09/02/11 00:00 Codeine Phosphate Allergy Unknown stomach Uncoded 09/02/11 00:00 upset Penicillin Allergy Unknown anaphylaxis Uncoded 09/02/11 00:00 Review of Systems 2 Review of Systems: Yes Unobtainable due to mental condition and Unobtainable due to mental status PMFSH Past Medical History Medical History Hypotension Orthostatic hypotension Seizure disorder History of prolonged Q-T interval on ECG Psychogenic nonepileptic seizure CKD (chronic kidney disease) stage 3, GFR 30-59 ml/min COPD (chronic obstructive pulmonary disease) GERD (gastroesophageal reflux disease) Port-A-Cath in place Malabsorption Compression fracture of C3 vertebra Self-catheterizes urinary bladder Neuropathy SIADH (syndrome of inappropriate ADH production) Chronic anemia Enlarged liver Enlarged heart History of atrial fibrillation Polysubstance abuse Von Willebrand disease Factor V deficiency Depression Uterine cancer Breast cancer Migraines Asthma Seizure Surgical History H/O knee surgery Hx of cholecystectomy History of hysterectomy H/O gastric bypass Social History Social History Household Members: Children Household Members Other:: One son Housing: House Housing Other:: House has ramps Do you presently have visiting nurse or other home services: Yes ([facility] services 3x/week, [employer] 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) Unable to assess alcohol history related to: Unknown Alcohol intake: unknown Comment: 352 Patient Tobacco Use Status: Current someday Tobacco user Tobacco use type: Cigarette Cigarettes Per Day: 2 e-Cigarette/Vaping Use: Never Used Advance Directives: No Advance Directives Information Provided: No service: No Physical Exam ED Vital Signs: Vital Signs - 24 hr 12/08/23 18:37 12/08/23 21:08 12/08/23 23:10 Temperature 98.9 F 98.1 F Pulse Rate 88 50 50 Respiratory Rate 20 18 18 Blood Pressure 101/62 133/72 120/71 Pulse Oximetry 96 99 98 Oxygen Delivery Method Room Air Room Air Room Air BMI result Body Mass Index 25.0 Const Other: Appearance: Somnolent, difficult to arouse, stable vitals Eyes: Pinpoint pupils bilaterally, round and reactive to light. ENT: Pharynx normal. Neck: Normal inspection. Neck supple. No lymph nodes noted. No crepitus CVS: Normal heart rate and rhythm. Pulses normal. Normal S1 and S2 Respiratory: No respiratory distress. Breath sounds normal. No Wheezing. No rales Abdomen: Soft and nontender. No rigidity. No distention. Skin: Skin warm and dry. Normal skin color. Normal skin turgor. Extremities: No lower extremity edema. No Lacerations. No Rash Neuro: Unable to participate in cranial nerve assessment Psych: Unresponsive Course Course Course Narrative: -patient has history of multiple similar presentations secondary to acute toxic metabolic encephalopathy due to opiate and benzodiazepine overdose -patient may be postictal. -vital stable, patient going to CAT scan now -all labs and imaging pending Medical Decision Making Medical Decision Making MDM Narrative: -my interpretation of CT scan of the head: No acute abnormality, no bleeding. -my interpretation of labs, normal hematology, chemistry shows slightly bumped creatinine, urine toxicology positive for opiates, oxycodone, amphetamines -given the patient's labs, I do not suspect that the patient had a seizure and is postictal, patient states likely secondary to medication overdose. -my interpretation of head CT negative for intracranial bleed -patient wakes up with IV placements and straight cath -I discussed the patient with Dr. Kimball from the medicine team, patient being accepted Differential Diagnosis Differential Diagnoses: The differential diagnosis associated with the presentation includes (Encephalopathy, UTI, accidental drug overdose) Admission/Observation Consideration of admission/observation: Escalation of care including admission/observation considered Consult Healthcare Provider Management of the patient was discussed with: Hospitalist Lab Data MDM Lab Attestation statement: I reviewed the patient's lab results. 12/08/23 19:44 12/08/23 19:44 Labs: Lab Results 12/08/23 12/08/23 12/09/23 Range/Units 19:44 19:48 00:30 WBC 7.8 (4.8-10.8) X10*3/uL RBC 4.34 (4.20-5.50) X10*6/uL Hgb 13.8 (12.0-16.0) g/dl Hct 41.5 (37.0-47.0) % MCV 95.6 (80.0-98.0) fL MCH 31.8 (27.0-33.0) pg MCHC 33.3 (31.0-35.0) g/dl RDW 12.7 (11.0-16.0) % Plt Count 171 (160-400) X10*3/uL MPV 10.5 (9.4-12.3) fL Immature Gran % (Auto) 0.1 (0.0-0.4) % Neut % (Auto) 72.0 (45-73) % Lymph % (Auto) 20.9 (20-40) % [place] % (Auto) 6.9 (2-11) % Eos % (Auto) 0.0 (0-4) % Baso % (Auto) 0.1 (0-2) % Lymph # (Auto) 1.6 (1.2-4.9) X10*3/uL [place] # (Auto) 0.5 (0.1-1.2) X10*3/uL Eos # (Auto) 0.0 (0.0-0.4) X10*3/uL Baso # (Auto) 0.0 (0.0-0.2) X10*3/uL Abs Immat Gran (auto) 0.01 (0.00-0.03) X10*3/uL Absolute Neuts (auto) 5.6 (2.0-8.3) x10*3/uL Absolute Nucleated RBC 0.000 (0.0-0.012) X10*3/uL Nucleated RBC % (auto) 0.0 (0.0-0.2) /100WBC PT 11.8 (11.1-13.3) SEC INR 1.0 (0.9-1.1) VBG pH 7.37 (7.32-7.43) VBG pCO2 55 mmHg VBG pO2 39 mmHg VBG HCO3 32 H (22-26) mmol/L VBG O2 Saturation 64.0 % VBG Base Excess 5.3 mmol/L Sodium 146 H (135-145) mmol/L Potassium 4.4 (3.3-5.1) mmol/L Chloride 106 (96-108) mmol/L Carbon Dioxide 27 (22-29) mmol/L Anion Gap 17 (12-20) BUN 25 H (9-16) mg/dL Creatinine 1.56 H (0.5-1.4) mg/dL Estim Creat Clear Calc 35.4 Estimated GFR 34 Random Glucose 119 H (60-115) mg/dL Lactic Acid 1.2 (0.5-2.0) mmol/L Calcium 10.1 D (8.4-10.2) mg/dL Magnesium 2.1 (1.6-2.6) mg/dL Total Bilirubin 0.4 (0.0-1.0) mg/dL Direct Bilirubin 0.2 (0.0-0.5) mg/dL AST 28 (5-31) U/L ALT 18 (0-31) U/L Alkaline Phosphatase 144 H (39-117) U/L Ammonia 19 (13-55) umol/L Troponin I High Sens 4.4 D (<3.5-17.0) ng/L Total Protein 7.1 (6.5-8.0) g/dL Albumin 4.3 (3.5-5.0) g/dL TSH 1.36 (0.32-4.0) uIU/mL Urine Color Yellow Urine Appearance Clear Urine pH 5.5 (5.0-9.0) Ur Specific [place] 1.010 (1.005-1.025) Urine Protein Negative (Neg-Trace) mg/dL Urine Glucose (UA) Negative (Negative) mg/dL Urine Ketones Negative (Negative) mg/dL Urine Blood Trace H (Negative) Urine Nitrite Negative (Negative) Ur Leukocyte Esterase Moderate (2+) H (Negative) Urine RBC 0-2 (0-2) /HPF Urine WBC 0-5 (0-5) /HPF Ur Squamous Epith Cells 0-2 (0-2) /HPF Urine Bacteria None Seen (None Seen) Hyaline Casts 3-5 (0-2) /LPF Urine Opiates Screen POSITIVE H (Not Detect) Ur Buprenorphine Scrn Not Detected (Not Detect) ng/mL Ur Oxycodone Screen Positive H (Not Detect) ng/mL Urine Methadone Screen Not Detected (Not Detect) ng/mL Urine Fentanyl Screen Not Detected (Not Detect) Ur Barbiturates Screen Not Detected (Not Detect) Ur Phencyclidine Scrn Not Detected (Not Detect) Ur Amphetamines Screen POSITIVE H (Not Detect) U Benzodiazepines Scrn Not Detected (Not Detect) Urine Cocaine Screen Not Detected (Not Detect) U Marijuana (THC) Screen Not Detected (Not Detect) Ethyl Alcohol < 10 mg/dL Independent Interpretation I performed an independent interpretation of an: CT Scan Radiology Impression Discussion of test interpretation with radiology: I have reviewed the radiologist's reading. Radiologist Impression: FINDINGS: There is no acute intracranial hemorrhage. There is no evidence of acute/subacute cerebral or cerebellar infarction. There is no midline shift or mass effect. There is no extra-axial fluid collection. There is probable mild small vessel ischemic change. The ventricles are normal in size. The orbits are symmetric and within normal limits. The calvarium is intact. The paranasal sinuses are clear. There are very small inferior mastoid air cell effusions bilaterally. CT/CT head/brain wo IV con IMPRESSION: No acute intracranial pathology. Critical Care Time Critical Care Time Critical Care Time: Yes Total Critical Care Time: 60 Attestation: I have personally provided critical care time. Time includes review of lab data, radiology results, discussion with consultants, and monitoring for potential decompensation. Intervention performed as documented. Discharge Plan Discharge Clinical Impression: Encephalopathy, Accidental medication overdose Patient Disposition: Admitted As Inpatient Prescriptions: No Action ondansetron HCl 8 mg tablet 1 tab PO TID PRN (Reason: nausea/vomiting) loperamide 2 mg capsule 2 mg PO QID multivitamin Tablet 1 tab PO DAILY cetirizine 10 mg tablet 10 mg PO DAILY sumatriptan succinate 100 mg tablet 100 mg PO DAILY PRN (Reason: Migraine Headache) omeprazole 20 mg capsule,delayed release(DR/EC) 20 mg PO TID-QID PRN (Reason: meal grazing) epinephrine 0.3 mg/0.3 mL auto-injector 0.3 mg IM ONCE levetiracetam 1,000 mg tablet 1,000 mg PO BID duloxetine 60 mg capsule,delayed release(DR/EC) 60 mg PO BID Qty: 60 0RF olanzapine 2.5 mg tablet 2.5 mg PO TID montelukast 10 mg tablet 10 mg PO DAILY albuterol sulfate 90 mcg/actuation HFA aerosol inhaler 1 puff inhalation Q4H PRN (Reason: dyspnea) clonazepam 0.5 mg tablet 0.5 mg PO BID PRN (Reason: anxiety) olanzapine 5 mg tablet 5 mg PO BEDTIME oxycodone 10 mg tablet 10 mg PO 5XD bumetanide 0.5 mg tablet 2 mg PO BID midodrine 5 mg tablet 5 mg PO BID Qty: 60 5RF Print Language: Georgian
[2023-12-08 19:50] LABS: MANUAL DIFF FLAG NO
--- NOTE | 2023-12-08 19:54 | PC.NURSE ---
20g RAC. pt awake for blood work
[2023-12-08 19:56] LABS: VBG Base Excess 5.3 mmol/L; VBG HCO3 32 mmol/L (22-26); VBG pCO2 55 mmHg; VBG pH 7.37 (7.32-7.43); VBG pO2 39 mmHg
[2023-12-08 19:57] LABS: Venous Blood Gas Refer to POC result
[2023-12-08 20:01] LABS: Ammonia 19 umol/L (13-55); Basophils Percent Auto 0.1 % (0-2); Hematocrit 41.5 % (37.0-47.0); Hemoglobin 13.8 g/dl (12.0-16.0); Imm Gran Abs Auto 0.01 X10*3/uL (0.00-0.03); Imm Gran Pct Auto 0.1 % (0.0-0.4); Lymphocytes Absolute Auto 1.6 X10*3/uL (1.2-4.9); Lymphocytes Percent Auto 20.9 % (20-40); Mean Corpuscular HGB Conc 33.3 g/dl (31.0-35.0); Mean Corpuscular Hemoglobin 31.8 pg (27.0-33.0); Mean Corpuscular Volume 95.6 fL (80.0-98.0); Mean Platelet Volume 10.5 fL (9.4-12.3); Monocytes Absolute Auto 0.5 X10*3/uL (0.1-1.2); Monocytes Percent Auto 6.9 % (2-11); Neutrophils Absolute Auto 5.6 x10*3/uL (2.0-8.3); Platelet Count 171 X10*3/uL (160-400); Red Blood Count 4.34 X10*6/uL (4.20-5.50); Red Cell Distribution Width 12.7 % (11.0-16.0); White Blood Count 7.8 X10*3/uL (4.8-10.8)
[2023-12-08 20:03] LABS: Lactic Acid 1.2 mmol/L (0.5-2.0)
[2023-12-08 20:13] LABS: Prothrombin Time 11.8 SEC (11.1-13.3)
[2023-12-08 20:15] LABS: Troponin-I High Sensitivity 4.4 ng/L (<3.5-17.0)
[2023-12-08 20:19] LABS: Alanine Aminotransferase 18 U/L (0-31); Albumin Level 4.3 g/dL (3.5-5.0); Alkaline Phosphatase 144 U/L (39-117); Anion Gap 17 (12-20); Aspartate Amino Transferase 28 U/L (5-31); Bilirubin Direct 0.2 mg/dL (0.0-0.5); Bilirubin Total 0.4 mg/dL (0.0-1.0); Blood Urea Nitrogen 25 mg/dL (9-16); Calcium 10.1 mg/dL (8.4-10.2); Carbon Dioxide 27 mmol/L (22-29); Chloride 106 mmol/L (96-108); Creatinine Clr Calc Pharmacy 35.4; Estimated Glomerular Filt Rate 34; Ethanol < 10 mg/dL; Glucose Random 119 mg/dL (60-115); Magnesium 2.1 mg/dL (1.6-2.6); Potassium 4.4 mmol/L (3.3-5.1); Sodium 146 mmol/L (135-145); Total Protein 7.1 g/dL (6.5-8.0)
[2023-12-08 20:29] LABS: TSH reflex Free T4 1.36 uIU/mL (0.32-4.0)
[2023-12-08 21:08] VITALS: BP 133/72; PULSE 50; RESP 18; O2SAT 99
[2023-12-08 23:10] VITALS: BP 120/71; PULSE 50; RESP 18; TEMP 36.7; O2SAT 98
[2023-12-09] VITALS (7 sets, daily range): BP systolic 105–179; BP diastolic 71–100; PULSE 57–93; RESP 14–20; TEMP 36.2–37; O2SAT 94–97
[2023-12-09 00:36] LABS: Appearance Urine Clear; Color Urine Yellow; Glucose Urine UA Negative (Negative); Leukocyte Esterase Urine Moderate (2+) (Negative); Nitrite Urine Negative (Negative); PH 5.5 (5.0-9.0); UMIC TRIGGER UACC YES; Urine Blood Trace (Negative); Urine Ketones Negative (Negative); Urine Protein Negative (Neg-Trace)
[2023-12-09 00:47] LABS: Bacteria Urine None Seen (None Seen); RBC Urine 0-2 /HPF (0-2); Squamous Epithelial Cell Urine 0-2 /HPF (0-2); WBC Urine 0-5 /HPF (0-5)
[2023-12-09 00:57] LABS: Amphetamine Screen Urine POSITIVE (Not Detect); Barbiturates, Urine Not Detected (Not Detect); Benzodiazepines Screen Urine Not Detected (Not Detect); Buprenorphine Scr Not Detected (Not Detect); Cannabinoid Screen Urine Not Detected (Not Detect); Cocaine Screen Urine Not Detected (Not Detect); Fentanyl, urine Not Detected (Not Detect); Methadone Screen, Urine Not Detected (Not Detect); Opiate Screen Urine POSITIVE (Not Detect); Oxycodone Screen Urine Positive (Not Detect); Phencyclidine Screen Urine Not Detected (Not Detect)
[2023-12-09] MEDS: 0.9 % Sodium Chloride 1,000 ML 999 ML IVCONT (01:20)
--- NOTE | 2023-12-09 01:37 | P.HPHOSP_ITS ---
History of Present Illness Date of Service: 12/09/23 Attending physician on admission: Karen Partida Chief Complaint: Altered mental status Liana Krishnamurthy is a 58 years old woman has past medical history significant for bipolar disorder, seizure disorder, polysubstance abuse, depression, asthma, GERD, chronic pain syndrome, chronic opiate use and migraine was brought to the emergency department via EMS after the patient's son noted the patient was acting strange, walking around and pacing. HPI was obtained from ED provider and chart review. No seizure activity was reported. Patient has been hospitalized multiple occasions with diagnosis of toxic encephalopathy secondary to overdoses including benzodiazepine and oxycodone. She also has had multiple hospitalization due to multiple psychiatric issues. In the ED, she was found to have normal vital signs. Blood workup is remarkable for normal CBC. There is hyponatremia 146. There are no other electrolyte imbalances. Mildly C level is not available. Creatinine is 1.56 (prior 1.41) and BUN 25. LFTs are normal except for elevated alk-phos at 144. Troponin is 4.4. UA showed trace blood, leukocyte esterase moderate with normal WBC. Toxicology is positive for opiates, oxycodone and amphetamines. Head CT scan showed no acute intracranial abnormality. ED tx: NS 1 L bolus Review of Systems 2 Review of Systems: Yes Unobtainable due to mental status PMFSH Medical History Hypotension Orthostatic hypotension Seizure disorder History of prolonged Q-T interval on ECG Psychogenic nonepileptic seizure CKD (chronic kidney disease) stage 3, GFR 30-59 ml/min COPD (chronic obstructive pulmonary disease) GERD (gastroesophageal reflux disease) Port-A-Cath in place Malabsorption Compression fracture of C3 vertebra Self-catheterizes urinary bladder Neuropathy SIADH (syndrome of inappropriate ADH production) Chronic anemia Enlarged liver Enlarged heart History of atrial fibrillation Polysubstance abuse Von Willebrand disease Factor V deficiency Depression Uterine cancer Breast cancer Migraines Asthma Seizure Surgical History H/O knee surgery Hx of cholecystectomy History of hysterectomy H/O gastric bypass Social History Household Members: Children Household Members Other:: One son Housing: House Housing Other:: House has ramps Do you presently have visiting nurse or other home services: Yes (VNA services 3x/week, [employer] 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) Unable to assess alcohol history related to: Unknown Alcohol intake: unknown Comment: 352 Patient Tobacco Use Status: Current someday Tobacco user Tobacco use type: Cigarette Cigarettes Per Day: 2 e-Cigarette/Vaping Use: Never Used Advance Directives: No Advance Directives Information Provided: No service: No Meds Allergies Allergy/AdvReac Type Severity Reaction Status Date / Time bee pollen [Bee Stings] Allergy Mild ANAPHYLAXIS Verified 12/08/23 18:40 codeine [Codeine] Allergy Mild ANAPHYLAXIS Verified 11/09/23 13:41 Penicillins Allergy Mild UNKNOWN Verified 11/09/23 13:41 aspirin [ASA] Allergy Unknown Verified 11/09/23 13:41 ciprofloxacin [From Cipro] Allergy Rash Verified 11/09/23 13:41 Iodinated Contrast Media Allergy Hives Verified 11/09/23 13:41 [Contrast Dye] latex Allergy Rash Verified 11/09/23 13:41 macadamia nut Allergy Anaphylaxis Verified 11/09/23 13:41 Sulfa (Sulfonamide Allergy Anaphylaxis Verified 11/09/23 13:41 Antibiotics) sulfamethoxazole Allergy Anaphylaxis Verified 11/09/23 13:41 [From Bactrim] trimethoprim [From Bactrim] Allergy Anaphylaxis Verified 11/09/23 13:41 bee stings Allergy Unknown anaphylaxis Uncoded 09/02/11 00:00 Codeine Phosphate Allergy Unknown stomach Uncoded 09/02/11 00:00 upset Penicillin Allergy Unknown anaphylaxis Uncoded 09/02/11 00:00 Active Medications: Current Medications Heparin Sodium (Porcine) (Heparin Sodium,Porcine 5,000 Unit/Ml Vial) 5,000 unit SUBCUT Q8H TAMARA Sodium Chloride (Ns) 1,000 mls @ 100 mls/hr IVCONT .Q10H TAMARA Sodium Chloride (0.9 % Sodium Chloride Flush 3 Ml Syringe) 3 ml IVFLUSH QSHIFT [facility] Home Medications ?Medication ?Instructions ?Recorded ?Confirmed ?Last Taken ?Type ondansetron HCl 8 mg tablet 1 tab PO TID PRN nausea/vomiting 01/29/21 09/09/23 04/28/23 06:30 History cetirizine 10 mg tablet 10 mg PO DAILY 04/28/23 09/09/23 04/28/23 06:30 History epinephrine 0.3 mg/0.3 mL 0.3 mg IM ONCE anaphylaxis 04/28/23 09/09/23 Unknown History injection, auto-injector levetiracetam 1,000 mg tablet 1,000 mg PO BID 04/28/23 09/09/23 04/28/23 06:30 History loperamide 2 mg capsule 2 mg PO QID diarrhea 04/28/23 09/09/23 04/28/23 06:30 History multivitamin 1 tab PO DAILY 04/28/23 09/09/23 04/28/23 06:30 History omeprazole 20 mg capsule,delayed 20 mg PO TID-QID PRN meal grazing 04/28/23 09/09/23 04/28/23 06:30 History release sumatriptan succinate 100 mg tablet 100 mg PO DAILY PRN Migraine 04/28/23 09/09/23 Unknown History Headache clonazepam 0.5 mg tablet 0.5 mg PO BID PRN anxiety 06/01/23 09/09/23 Unknown History olanzapine 5 mg tablet 5 mg PO BEDTIME 08/03/23 09/09/23 Unknown History oxycodone 10 mg tablet 10 mg PO 5XD 08/03/23 09/09/23 Unknown History albuterol sulfate 90 mcg/actuation 1 puff inhalation Q4H PRN dyspnea 09/06/23 09/09/23 Unknown History aerosol inhaler montelukast 10 mg tablet 10 mg PO DAILY 09/06/23 09/09/23 Unknown History olanzapine 2.5 mg tablet 2.5 mg PO TID 09/06/23 09/09/23 Unknown History bumetanide 0.5 mg tablet 2 mg PO BID 11/09/23 Unknown History Physical Exam 2 Vital Signs and Narrative: Vital Signs: Last Vital Signs Temp 98.1 F 12/08/23 23:10 Pulse 50 12/08/23 23:10 Resp 18 12/08/23 23:10 BP 120/71 12/08/23 23:10 Pulse Ox 98 12/08/23 23:10 O2 Del Method Room Air 12/08/23 23:10 BMI result Body Mass Index 25.0 Constitutional - Lethargic, responsive to sternum rub. HEENT - Atraumatic head. Heart - Bradycardia, regular rhythm. No murmur. Lungs - Normal lung expansion, Normal respiratory effort, No respiratory distress, CTA bilaterally Abdomen - NT / ND; +BS; No rebound or guarding Extremities - no calf tenderness bilaterally, no swelling. Musculoskeletal - Normal inspection, normal ROM Skin - Warm/Dry. No open wounds Neurological - Lethargic, no facial droop. Psychological - No agitation. Results Labs 12/08/23 19:44 12/08/23 19:44 Labs: Laboratory Results - last 24 hr 12/08/23 12/08/23 12/09/23 19:44 19:48 00:30 MCV 95.6 MCH 31.8 MCHC 33.3 RDW 12.7 Plt Count 171 MPV 10.5 Immature Gran % (Auto) 0.1 Neut % (Auto) 72.0 Lymph % (Auto) 20.9 [place] % (Auto) 6.9 Eos % (Auto) 0.0 Baso % (Auto) 0.1 Lymph # (Auto) 1.6 [place] # (Auto) 0.5 Eos # (Auto) 0.0 Baso # (Auto) 0.0 Abs Immat Gran (auto) 0.01 Absolute Neuts (auto) 5.6 Absolute Nucleated RBC 0.000 Nucleated RBC % (auto) 0.0 PT 11.8 INR 1.0 VBG pH 7.37 VBG pCO2 55 VBG pO2 39 VBG HCO3 32 H VBG O2 Saturation 64.0 VBG Base Excess 5.3 Anion Gap 17 Estim Creat Clear Calc 35.4 Estimated GFR 34 Random Glucose 119 H Lactic Acid 1.2 Calcium 10.1 D Magnesium 2.1 Total Bilirubin 0.4 Direct Bilirubin 0.2 AST 28 ALT 18 Alkaline Phosphatase 144 H Ammonia 19 Troponin I High Sens 4.4 D Total Protein 7.1 Albumin 4.3 TSH 1.36 Urine Color Yellow Urine Appearance Clear Urine pH 5.5 Ur Specific [place] 1.010 Urine Protein Negative Urine Glucose (UA) Negative Urine Ketones Negative Urine Blood Trace H Urine Nitrite Negative Ur Leukocyte Esterase Moderate (2+) H Urine RBC 0-2 Urine WBC 0-5 Ur Squamous Epith Cells 0-2 Urine Bacteria None Seen Hyaline Casts 3-5 Urine Opiates Screen POSITIVE H Ur Buprenorphine Scrn Not Detected Ur Oxycodone Screen Positive H Urine Methadone Screen Not Detected Urine Fentanyl Screen Not Detected Ur Barbiturates Screen Not Detected Ur Phencyclidine Scrn Not Detected Ur Amphetamines Screen POSITIVE H U Benzodiazepines Scrn Not Detected Urine Cocaine Screen Not Detected U Marijuana (THC) Screen Not Detected Ethyl Alcohol < 10 Imaging Radiologist's Impressions: Impressions Head CT 12/08/23 19:23 IMPRESSION: No acute intracranial pathology. Assessment and Plan (1) Toxic encephalopathy: Status: Acute (2) Acute kidney injury: Status: Acute Plan Liana Krishnamurthy is a 58 y/o woman admitted with: * Decreased level of consciousness likely toxic encephalopathy due to clonazepam, oxycodone, amphetamine + other psych meds + mild hypernatremia. Admit to hospitalist service. NPO. Neuro checks every 4 hours. Aspiration and fall precautions. * Mild hypernatremia. Likely secondary to poor injected of free water. Start IV fluids with D5. Continue to monitor Na+ level. * Acute on chronic renal failure. Likely secondary to poor p.o. intake due to decreased level of consciousness. Continue IV fluids. Continue to monitor renal function. Avoid nephrotoxic agents. * Polysubstance abuse. Urine drug screen positive for opiates, oxycodone, amphetamine. Addiction medicine consult. * Seizure disorder. Continue Keppra. * Bipolar disorder. Restart home medication once mental status improves. * Chronic pain syndrome on chronic abuse. Oxycodone on hold due to decreased level of consciousness. Tylenol IV as needed. * Asthma. Not in acute exacerbation. DuoNeb nebs as needed. DVT prophylaxis: Heparin Code status: Full Patient will need hospitalization for at least 2 midnights for acute encephalopathy treatment for close monitoring of neurological status and evaluation by addiction Medicine. Quality Stroke Does the patient have a stroke diagnosis?: No VTE Prior VTE?: No VTE Risk Level:: Medical - moderate - high VTE Device Contraindication: Treatment Not Indicated VTE Drug Contraindication: N/A - Med Ordered
[2023-12-09] MEDS: Dextrose 5 % and 0.45 % NaCl 1,000 ML 80 ML IVCONT (03:10)
[2023-12-09 05:52] LABS: Basophils Percent Auto 0.1 % (0-2); Hematocrit 37.8 % (37.0-47.0); Hemoglobin 12.2 g/dl (12.0-16.0); Imm Gran Abs Auto 0.02 X10*3/uL (0.00-0.03); Imm Gran Pct Auto 0.2 % (0.0-0.4); Lymphocytes Absolute Auto 2.6 X10*3/uL (1.2-4.9); Lymphocytes Percent Auto 32.4 % (20-40); MANUAL DIFF FLAG SCAN; Mean Corpuscular HGB Conc 32.3 g/dl (31.0-35.0); Mean Corpuscular Hemoglobin 31.5 pg (27.0-33.0); Mean Corpuscular Volume 97.7 fL (80.0-98.0); Mean Platelet Volume 10.7 fL (9.4-12.3); Monocytes Absolute Auto 1.8 X10*3/uL (0.1-1.2); Monocytes Percent Auto 21.9 % (2-11); Neutrophils Absolute Auto 3.6 x10*3/uL (2.0-8.3); Neutrophils Percent Auto 45.4 % (45-73); Platelet Count 133 X10*3/uL (160-400); Red Blood Count 3.87 X10*6/uL (4.20-5.50); Red Cell Distribution Width 12.8 % (11.0-16.0); SCAN SMEAR FLAG 1
[2023-12-09 06:12] LABS: SLIDE REVIEW VERIFIED
[2023-12-09 06:20] LABS: Alanine Aminotransferase 13 U/L (0-31); Albumin Level 3.5 g/dL (3.5-5.0); Alkaline Phosphatase 120 U/L (39-117); Anion Gap 15 (12-20); Aspartate Amino Transferase 19 U/L (5-31); Bilirubin Total 0.4 mg/dL (0.0-1.0); Blood Urea Nitrogen 24 mg/dL (9-16); Calcium 9.3 mg/dL (8.4-10.2); Carbon Dioxide 20 mmol/L (22-29); Chloride 113 mmol/L (96-108); Creatinine Clr Calc Pharmacy 47.9; Estimated Glomerular Filt Rate 48; Glucose Random 103 mg/dL (60-115); Magnesium 2.2 mg/dL (1.6-2.6); Potassium 4.1 mmol/L (3.3-5.1); Sodium 144 mmol/L (135-145)
--- NOTE | 2023-12-09 06:23 | PC.NURSE ---
pt continues to rst quietly with eyes closed, breathing even and unlabored. no apparent distress noted at this time. pt on monitor, VSS
--- NOTE | 2023-12-09 08:47 | MHC.CM.PN ---
Patient is here with Toxic Encephalopathy; CM spoke with Son/Jeronimo @ [phone] and addressed IMM with him (original will be mailed certified letter to Jeronimo and a copy will be placed on the chart). Patient lives in a house with her Son and she uses a cane to assist with mobility. Patient has a [employer] 22 hours/week(Jeronimo has a BAKER HEAD as well,for himself)and she is active with [facility]. Home/resume said services is the goal and CM has initiated and will follow for dc planning. Per Jeronimo, Patient's Sister/Yael is the HCP but Patient has been wanting to change the Agent to him(a new HCP may be able to be completed with improvement in Patient's MS).PCP is Dr. Ailin Araujo. CM will follow.
--- NOTE | 2023-12-09 09:34 | PHA.MEDREC ---
Pharmacy Consult ? Medication Reconciliation Pharmacy has completed the medication reconciliation. spoke with patients son over the phone. He confirmed her medications with a list he has from home. He reports that the patient takes oxycodone 10mg TID scheduled along with another 2 tablets throughout the day prn for breakthrough pain (prescription directions say 5x/day). Patients son confirmed she is taking loperamide q4h scheduled (what it says on his list) and she has history of this as a prescription last picked up 03/2023 (can also be OTC). Patients son was unsure about the cetirizine however since it is on her previous med recs, discharges, and has claims from 03/2023, I will keep as prn. He also confirmed omeprazole 20mg once daily.
[2023-12-09] MEDS: Heparin Sodium,Porcine 5,000 UNIT/ML VIAL 5000 UNIT SUBCUT (11:26)
[2023-12-09 11:59] LABS: ABG Base Excess 0.3 mmol/L; ABG HCO3 23 mmol/L (22-26); ABG pCO2 34 mmHg (32-45); ABG pH 7.44 (7.35-7.45); ABG pO2 88 mmHg (83-108)
--- NOTE | 2023-12-09 12:36 | PM.EVENT ---
Event Note Date of Service: 12/09/23 Event Note: Seen and examined this morning Follow-up for toxic metabolic encephalopathy presumed secondary to unintentional drug overdose Patient with multiple recent admissions for the same Patient remains confused, opens eyes intermittently, follows simple commands intermittently. Intermittently moaning, not answering questions. Brain CT with no acute intracranial pathology, ammonia, renal function, LFTs normal, TSH within normal limits. Moving all extremities, ABG without CO2 retention No seizure activity Continue home seizure medications Psych consult ? primary psych issue Unclear why on Eliquis, will continue for now Will change Keppra to IV to avoid missing doses Currently NPO, bedside swallow eval when more awake Continue neuro checks, aspiration, seizure precautions If no improvement will consider Neurology evaluation Time Spent With Patient Time: Total time managing care of this patient today ____ minutes.
[2023-12-09 13:09] LABS: ABG Refer to POC result
[2023-12-09] MEDS: LORazepam 2 MG/ML VIAL 1 MG IVPUSH ×2 (15:10→20:53)
--- NOTE | 2023-12-09 15:12 | P.CNPS_ITS ---
History of Present Illness Date of Service: 12/09/2023 Chief Complaint: Decreased level of consciousness Reason for Consult: recurrent overdoses, depression Requesting physician: Melanie Sharif Discussed with referring provider: Yes Sources of Information: patient interviewed and chart reviewed HPI Narrative: Patient is a 58 year old woman with past medical history significant for bipolar disorder, seizure disorder, polysubstance abuse, depression, asthma, GERD, chronic pain syndrome, chronic opiate use and migraine was brought to the emergency department via EMS after the patient's son noted the patient was acting strange, walking around and pacing. Psychiatric consult for: recurrent overdoses, depression Patient laying in bed wearing hospital edis; pt observed restless in bed without undergarments. RN reported staff attempting to cover patient with blanket, but patient removing blankets. T/W called out patient's name numerous times; pt turning frequently in bed with eyes closed. Would not respond to directions or name being called by T/W offset plate preparation supervisor. Moaning frequently. Discussed case with SHAMA Thomas; T/W and Ms. Sharif contacted patient's son via phone, who reported patient usually acts this way after having a seizure . Pt's son reports, pt has VNA and lock box, which makes it not likely that she took more medications than she is supposed to . Past Psychiatric History: pt is prescribed: Klonopin, duloxetine and zyprexa. hx of substance abuse. One prior psychiatric hospitalization and outpatient treatment. Medical Evaluation Reviewed: Yes Review of Systems Constitutional: Reports as per HPI Eyes: Reports as per HPI Reports as per HPI Cardiovascular: Reports as per HPI Respiratory: Reports as per HPI Gastrointestinal: Reports as per HPI Genitourinary: Reports as per HPI Musculoskeletal: Reports as per HPI Skin/Breast: Reports as per HPI Reports as per HPI Psychiatric: Reports as per HPI Endocrine: Reports as per HPI Hematologic/Lymphatic: Reports as per HPI Allergic/Immunologic: Reports as per HPI [facility] Medical History (Updated 12/09/23 @ 16:07 by Lori Rowan NP) Altered mental state Hypotension Orthostatic hypotension Seizure disorder History of prolonged Q-T interval on ECG Psychogenic nonepileptic seizure CKD (chronic kidney disease) stage 3, GFR 30-59 ml/min COPD (chronic obstructive pulmonary disease) GERD (gastroesophageal reflux disease) Port-A-Cath in place Malabsorption Compression fracture of C3 vertebra Self-catheterizes urinary bladder Neuropathy SIADH (syndrome of inappropriate ADH production) Chronic anemia Enlarged liver Enlarged heart History of atrial fibrillation Polysubstance abuse Von Willebrand disease Factor V deficiency Depression Uterine cancer Breast cancer Migraines Asthma Seizure Surgical History H/O knee surgery Hx of cholecystectomy History of hysterectomy H/O gastric bypass Family History: unable to assess Social History: unable to assess Substance History: unable to assess Trauma History: unable to assess Diagnostics Vital Signs (24Hr): Vital Signs - 24 hr 12/08/23 18:37 12/08/23 21:08 12/08/23 23:10 Temperature 98.9 F 98.1 F Pulse Rate 88 50 50 Respiratory Rate 20 18 18 Blood Pressure 101/62 133/72 120/71 Pulse Oximetry 96 99 98 Oxygen Delivery Method Room Air Room Air Room Air 12/09/23 04:31 12/09/23 08:00 12/09/23 11:40 Temperature 97.6 F 97.2 F 97.5 F Pulse Rate 57 64 63 Respiratory Rate 14 20 20 Blood Pressure 113/71 105/85 147/89 H Pulse Oximetry 97 94 95 Oxygen Delivery Method Room Air Room Air Room Air BMI result Body Mass Index 25.0 Labs 12/09/23 05:40 12/09/23 05:40 Labs: Laboratory Results - last 48 hr 12/08/23 12/08/23 12/09/23 19:44 19:48 00:30 WBC 7.8 RBC 4.34 Hgb 13.8 Hct 41.5 MCV 95.6 MCH 31.8 MCHC 33.3 RDW 12.7 Plt Count 171 MPV 10.5 Immature Gran % (Auto) 0.1 Neut % (Auto) 72.0 Lymph % (Auto) 20.9 [place] % (Auto) 6.9 Eos % (Auto) 0.0 Baso % (Auto) 0.1 Lymph # (Auto) 1.6 [place] # (Auto) 0.5 Eos # (Auto) 0.0 Baso # (Auto) 0.0 Abs Immat Gran (auto) 0.01 Absolute Neuts (auto) 5.6 Absolute Nucleated RBC 0.000 Nucleated RBC % (auto) 0.0 Smear Tech's Comments PT 11.8 INR 1.0 O2 Saturation ABG pH at Pt Temp ABG pCO2 at Pt Temp ABG pO2 at Pt Temp ABG HCO3 ABG Base Excess (Actual) VBG pH 7.37 VBG pCO2 55 VBG pO2 39 VBG HCO3 32 H VBG O2 Saturation 64.0 VBG Base Excess 5.3 Sodium 146 H Potassium 4.4 Chloride 106 Carbon Dioxide 27 Anion Gap 17 BUN 25 H Creatinine 1.56 H Estim Creat Clear Calc 35.4 Estimated GFR 34 Random Glucose 119 H Lactic Acid 1.2 Calcium 10.1 D Magnesium 2.1 Total Bilirubin 0.4 Direct Bilirubin 0.2 AST 28 ALT 18 Alkaline Phosphatase 144 H Ammonia 19 Troponin I High Sens 4.4 D Total Protein 7.1 Albumin 4.3 TSH 1.36 Urine Color Yellow Urine Appearance Clear Urine pH 5.5 Ur Specific [place] 1.010 Urine Protein Negative Urine Glucose (UA) Negative Urine Ketones Negative Urine Blood Trace H Urine Nitrite Negative Ur Leukocyte Esterase Moderate (2+) H Urine RBC 0-2 Urine WBC 0-5 Ur Squamous Epith Cells 0-2 Urine Bacteria None Seen Hyaline Casts 3-5 Urine Opiates Screen POSITIVE H Ur Buprenorphine Scrn Not Detected Ur Oxycodone Screen Positive H Urine Methadone Screen Not Detected Urine Fentanyl Screen Not Detected Ur Barbiturates Screen Not Detected Ur Phencyclidine Scrn Not Detected Ur Amphetamines Screen POSITIVE H U Benzodiazepines Scrn Not Detected Urine Cocaine Screen Not Detected U Marijuana (THC) Screen Not Detected Ethyl Alcohol < 10 12/09/23 12/09/23 05:40 11:51 WBC 8.0 RBC 3.87 L Hgb 12.2 Hct 37.8 MCV 97.7 MCH 31.5 MCHC 32.3 RDW 12.8 Plt Count 133 L MPV 10.7 Immature Gran % (Auto) 0.2 Neut % (Auto) 45.4 Lymph % (Auto) 32.4 [place] % (Auto) 21.9 H Eos % (Auto) 0.0 Baso % (Auto) 0.1 Lymph # (Auto) 2.6 [place] # (Auto) 1.8 H Eos # (Auto) 0.0 Baso # (Auto) 0.0 Abs Immat Gran (auto) 0.02 Absolute Neuts (auto) 3.6 Absolute Nucleated RBC 0.000 Nucleated RBC % (auto) 0.0 Smear Tech's Comments VERIFIED PT INR O2 Saturation 96.0 ABG pH at Pt Temp 7.44 ABG pCO2 at Pt Temp 34 ABG pO2 at Pt Temp 88 ABG HCO3 23 ABG Base Excess (Actual) 0.3 VBG pH VBG pCO2 VBG pO2 VBG HCO3 VBG O2 Saturation VBG Base Excess Sodium 144 Potassium 4.1 Chloride 113 H Carbon Dioxide 20 L Anion Gap 15 BUN 24 H Creatinine 1.15 Estim Creat Clear Calc 47.9 Estimated GFR 48 Random Glucose 103 Lactic Acid Calcium 9.3 D Magnesium 2.2 Total Bilirubin 0.4 Direct Bilirubin AST 19 ALT 13 Alkaline Phosphatase 120 H Ammonia Troponin I High Sens Total Protein 6.0 L Albumin 3.5 TSH Urine Color Urine Appearance Urine pH Ur Specific [place] Urine Protein Urine Glucose (UA) Urine Ketones Urine Blood Urine Nitrite Ur Leukocyte Esterase Urine RBC Urine WBC Ur Squamous Epith Cells Urine Bacteria Hyaline Casts Urine Opiates Screen Ur Buprenorphine Scrn Ur Oxycodone Screen Urine Methadone Screen Urine Fentanyl Screen Ur Barbiturates Screen Ur Phencyclidine Scrn Ur Amphetamines Screen U Benzodiazepines Scrn Urine Cocaine Screen U Marijuana (THC) Screen Ethyl Alcohol Imaging Radiology Impressions: ITS Impressions Head CT 12/08/23 19:23 IMPRESSION: No acute intracranial pathology. Mental Status Exam Mental Status Exam Narrative: Pt presents restless, observed turning frequently in bed with eyes closed. Would not respond to directions or name being called by T/W offset plate preparation supervisor. Moaning frequently. Patient Appearance: Disheveled Level of Consciousness: Sedated and Restless Patient Behavior: Restless and Poor Eye Contact Affect Description: Constricted Ability to Follow Directions: Poor Medications Medications Current Medications Albuterol Sulfate (Albuterol Sulfate (0.083%) 2.5 Mg/3 Ml Vial.Neb) 2.5 mg INHALE Q2H PRN PRN Reason: Shortness of Breath/Wheezing Albuterol Sulfate (Albuterol Sulfate 90 Mcg 8 Gm Inhaler) 1 puff INHALE RQ4H PRN PRN Reason: dyspnea Apixaban (Apixaban 2.5 Mg Tablet) 2.5 mg PO BID [facility] Last Admin: 12/09/23 13:42 Dose: Not Given Bumetanide (Bumetanide 1 Mg Tablet) 0.5 mg PO BID TAMARA; Protocol Dextrose/Sodium Chloride (D51/2ns) 1,000 mls @ 80 mls/hr IVCONT .[id number] [facility] Last Infusion: 12/09/23 13:16 Dose: 0 mls/hr Levetiracetam (Keppra) 1,000 mg in 100 mls @ 400 mls/hr IV Q12H [facility] Loratadine (Loratadine 10 Mg Tablet) 10 mg PO DAILY PRN PRN Reason: allergies Midodrine (Midodrine Hcl 5 Mg Tablet) 5 mg PO BID [facility] Montelukast Sodium (Montelukast Sodium 10 Mg Tablet) 10 mg PO DAILY [facility] Multivitamins/Vitamin C (Multivitamin Tablet) 1 tab PO DAILY [facility] Omeprazole (Omeprazole 20 Mg Capsule.Dr) 20 mg PO DAILY@0630 [facility] Sodium Chloride (0.9 % Sodium Chloride Flush 3 Ml Syringe) 3 ml IVFLUSH QSHIFT [facility] Last Admin: 12/09/23 07:32 Dose: Not Given Allergies Allergies Allergy/AdvReac Type Severity Reaction Status Date / Time bee pollen [Bee Stings] Allergy Mild ANAPHYLAXIS Verified 12/08/23 18:40 codeine [Codeine] Allergy Mild ANAPHYLAXIS Verified 11/09/23 13:41 Penicillins Allergy Mild UNKNOWN Verified 11/09/23 13:41 aspirin [ASA] Allergy Unknown Verified 11/09/23 13:41 ciprofloxacin [From Cipro] Allergy Rash Verified 11/09/23 13:41 Iodinated Contrast Media Allergy Hives Verified 11/09/23 13:41 [Contrast Dye] latex Allergy Rash Verified 11/09/23 13:41 macadamia nut Allergy Anaphylaxis Verified 11/09/23 13:41 Sulfa (Sulfonamide Allergy Anaphylaxis Verified 11/09/23 13:41 Antibiotics) sulfamethoxazole Allergy Anaphylaxis Verified 11/09/23 13:41 [From Bactrim] trimethoprim [From Bactrim] Allergy Anaphylaxis Verified 11/09/23 13:41 bee stings Allergy Unknown anaphylaxis Uncoded 09/02/11 00:00 Codeine Phosphate Allergy Unknown stomach Uncoded 09/02/11 00:00 upset Penicillin Allergy Unknown anaphylaxis Uncoded 09/02/11 00:00 Assessment & Plan Assessment & Plan (1) Altered mental state: Status: Acute Code(s): R41.82 - Altered mental status, unspecified Plan Psychiatric consult for: recurrent overdoses, depression Patient laying in bed wearing [facility]; pt observed restless in bed without undergarments. RN reported staff attempting to cover patient with blanket, but patient removing blankets. T/W called out patient's name numerous times; pt turning frequently in bed with eyes closed. Would not respond to directions or name being called by T/W offset plate preparation supervisor. Moaning frequently. Discussed case with SHAMA Thomas; T/W and Ms. Sharif contacted patient's son via phone, who reported patient usually acts this way after having a seizure . Pt's son reports, pt has VNA and lock box, which makes it not likely that she took more medications than she is supposed to . Recommdations: -Consult neurology to control seizure activity/neurology management -Continue psychiatric home medications once pt's mental status improves/ etiology of delirium is better understood. Total time managing care of this patient today _30___ minutes. Patient educated on: other (unable to educate d/t mental status.)
--- NOTE | 2023-12-09 15:24 | MHC.RECOVRN ---
Received Addiction Medicine consult for polysubstance use. Chart reviewed. Per triage note, per EMS - pt from home. Hx of seizure disorder. Lives with son who is marketing administrator. Son says that he did not witness a seizure but pt has been acting how she does when she is postictal. Pt is confused, altered, not answering questions. EMS says she was walking around apartment not answering squestions or obeying commands. Upon evaluation, pt admitted for toxic encephalopathy and ROBEL. Pts UDS positive for opiates, oxycodone, amphetamines. Per [facility], pt is prescribed oxycodone. Spoke with pts RN who informed t/w pt is still not opening her eyes or answering questions. Will continue to follow.
--- NOTE | 2023-12-09 15:54 | PC.NURSE ---
Pt observed to be becoming agitated and restless. At around 1300, pt began tossing and turning in bed, crying and moaning. Pt not following commands or answering questions. Pt noted to be soiled at this time and a full bed change was completed. Pt remained restless in bed and crying. Pt got up and began pacin around room twice, crying, not following commands. Pt guided back to bed and provider notified with findings. New orders obtained for psych and neuro consults, 1:1 sitter, and IV ativan. Ativan administered and sitter at bedside. Pt quietly resting in bed with equal and unlabored respirations. No other concerns at this time.
[2023-12-09] MEDS: levETIRAcetam in NaCl (iso-os) 1,000 MG/100 ML PIGGYBACK 400 MG IV (16:42)
[2023-12-09] MEDS: 0.9 % Sodium Chloride Flush 3 ML SYRINGE IVFLUSH (16:47)
[2023-12-09] MEDS: LORazepam 2 MG/ML VIAL 0.5 MG IVPUSH (17:03)
[2023-12-10] VITALS (7 sets, daily range): BP systolic 114–145; BP diastolic 56–85; PULSE 68–95; RESP 17–20; TEMP 36.4–37.2; O2SAT 98–100
[2023-12-10] MEDS: OLANZapine 10 MG VIAL 5 MG IM (01:49)
[2023-12-10] MEDS: 0.9 % Sodium Chloride Flush 3 ML SYRINGE IVFLUSH ×4 (01:52→20:00)
--- NOTE | 2023-12-10 02:17 | PM.EVENT ---
Event Note Date of Service: 12/10/23 Event Note: 8:18 PM - Contacted by nursing to notify pt is very restless, agitated, kicking and moaning . Ativan 1 mg IV given. Patient is NPO. 1:17 AM - Ativan IV did not help much with restlessness. IV access is not working -missed evening Keppra. New IV will be obtained once patient calms down. 1:45 AM - Patient is very restless. Eyes clenched shut. Moaning. No seizure activity noted by nursing. No facial droop or obvious focal weakness. Patient does not seems to be on opiate withdrawals. Olanzapine 5 mg IM ordered (pt is on olanzapine at home). Fall precautions active. Sitter at bedside. Time Spent With Patient Time: Total time managing care of this patient today ____ minutes.
[2023-12-10 02:25] LABS: Glucose, Whole Blood 78 mg/dL (60-115)
[2023-12-10] MEDS: OLANZapine 10 MG VIAL 7.5 MG IM (03:47)
[2023-12-10 07:03] LABS: Hematocrit 39.6 % (37.0-47.0); Mean Corpuscular HGB Conc 32.8 g/dl (31.0-35.0); Mean Corpuscular Hemoglobin 31.7 pg (27.0-33.0); Mean Corpuscular Volume 96.6 fL (80.0-98.0); Mean Platelet Volume 11.1 fL (9.4-12.3); Platelet Count 133 X10*3/uL (160-400); Red Cell Distribution Width 12.4 % (11.0-16.0); White Blood Count 6.5 X10*3/uL (4.8-10.8)
[2023-12-10 07:08] LABS: Anion Gap 17 (12-20); Blood Urea Nitrogen 16 mg/dL (9-16); Calcium 9.6 mg/dL (8.4-10.2); Carbon Dioxide 17 mmol/L (22-29); Chloride 116 mmol/L (96-108); Creatinine Clr Calc Pharmacy 68.9; Estimated Glomerular Filt Rate > 60; Glucose Random 96 mg/dL (60-115); Potassium 3.8 mmol/L (3.3-5.1); Sodium 146 mmol/L (135-145)
[2023-12-10] MEDS: levETIRAcetam in NaCl (iso-os) 1,000 MG/100 ML PIGGYBACK 400 MG IV ×2 (10:22→23:36)
--- NOTE | 2023-12-10 10:32 | HO.PM.IMPN ---
Subjective Subjective Date of Service: 12/10/23 Interval History: Seen and examined this morning For toxic metabolic encephalopathy Patient received multiple doses of IV benzos in IM Zyprexa overnight due to ongoing agitation This morning patient is calm, remains confused but able to answer some simple questions and follow some basic commands Unable to provide full review of systems Physical Exam Vital Signs: Vital Signs: Last Vital Signs Temp 97.6 F 12/10/23 08:00 Pulse 87 12/10/23 08:00 Resp 20 12/10/23 08:00 BP 145/85 H 12/10/23 08:00 Pulse Ox 98 12/10/23 08:00 O2 Del Method Room Air 12/10/23 08:00 BMI result Body Mass Index 25.0 Const: Other: constitutionalPatient observed resting in bed, less agitated/restless this morning. Opens eyes intermittently, answers her name. when her eyes are closed she squeezes her eyes shut and resists her eyes being opened CV - Heart regular and rate pulm-lungs clear, no respiratory distress breathing easy and nonlabored Musculoskeletal-patient is able to move all 4 extremities; well healed scar right knee Neuro-difficult to assess but patient is moving all 4 extremities, face is symmetrical, no focal neurological deficits are appreciated Objective Data Active Medications Albuterol Sulfate (Albuterol Sulfate (0.083%) 2.5 Mg/3 Ml Vial.Neb) 2.5 mg INHALE Q2H PRN PRN Reason: Shortness of Breath/Wheezing Albuterol Sulfate (Albuterol Sulfate 90 Mcg 8 Gm Inhaler) 1 puff INHALE RQ4H PRN PRN Reason: dyspnea Apixaban (Apixaban 2.5 Mg Tablet) 2.5 mg PO BID [facility] Last Admin: 12/10/23 09:25 Dose: Not Given Documented By: JESUS ALBERTO Non-Admin Reason: NPO/ wont cooperate to take medications po Bumetanide (Bumetanide 1 Mg Tablet) 0.5 mg PO BID [facility]; Protocol Last Admin: 12/10/23 09:25 Dose: Not Given Documented By: JESUS ALBERTO Non-Admin Reason: NPO/ wont cooperate to take medications po Dextrose/Sodium Chloride (D51/2ns) 1,000 mls @ 80 mls/hr IVCONT .[id number] [facility] Last Infusion: 12/10/23 09:53 Dose: 0 mls/hr Documented By: JESUS ALBERTO Levetiracetam (Keppra) 1,000 mg in 100 mls @ 400 mls/hr IV Q12H [facility] Last Admin: 12/10/23 10:22 Dose: 400 mls/hr Documented By: JESUS ALBERTO Loratadine (Loratadine 10 Mg Tablet) 10 mg PO DAILY PRN PRN Reason: allergies Midodrine (Midodrine Hcl 5 Mg Tablet) 5 mg PO BID [facility] Last Admin: 12/10/23 09:26 Dose: Not Given Documented By: JESUS ALBERTO Non-Admin Reason: NPO/ wont cooperate to take medications po Montelukast Sodium (Montelukast Sodium 10 Mg Tablet) 10 mg PO DAILY [facility] Last Admin: 12/10/23 09:26 Dose: Not Given Documented By: JESUS ALBERTO Non-Admin Reason: NPO/ wont cooperate to take medications po Multivitamins/Vitamin C (Multivitamin Tablet) 1 tab PO DAILY [facility] Last Admin: 12/10/23 09:26 Dose: Not Given Documented By: JESUS ALBERTO Non-Admin Reason: NPO/ wont cooperate to take medications po Omeprazole (Omeprazole 20 Mg Capsule.Dr) 20 mg PO DAILY@0630 [facility] Last Admin: 12/10/23 09:25 Dose: Not Given Documented By: JESUS ALBERTO Non-Admin Reason: NPO/ wont cooperate to take medications po Sodium Chloride (0.9 % Sodium Chloride Flush 3 Ml Syringe) 3 ml IVFLUSH QSHIFT [facility] Last Admin: 12/10/23 09:22 Dose: 3 ml Documented By: JESUS ALBERTO Labs 12/10/23 06:38 12/10/23 06:38 Labs: Laboratory Results - last 24 hr 12/09/23 12/10/23 12/10/23 11:51 00:53 06:38 MCV 96.6 MCH 31.7 MCHC 32.8 RDW 12.4 Plt Count 133 L MPV 11.1 Absolute Nucleated RBC 0.000 Nucleated RBC % (auto) 0.0 O2 Saturation 96.0 ABG pH at Pt Temp 7.44 ABG pCO2 at Pt Temp 34 ABG pO2 at Pt Temp 88 ABG HCO3 23 ABG Base Excess (Actual) 0.3 Anion Gap 17 Estim Creat Clear Calc 68.9 Estimated GFR > 60 POC Glucose 78 Random Glucose 96 Calcium 9.6 Microbiology Microbiology Results: Microbiology 12/08/23 19:48 Blood Culture - Preliminary Blood - Venous No growth after 24 hours. 12/08/23 19:48 Blood Culture - Preliminary Blood - Venous No growth after 24 hours. Assessment and Plan (1) Toxic encephalopathy: Status: Acute Plan Liana Krishnamurthy is a 58 y/o woman with history of bipolar disorder, seizure disorder, polysubstance abuse, depression, asthma, GERD, chronic pain syndrome, migraine, chronic opiate use we initially presented to the emergency department after the patient's son noticed she was acting strange, pacing and then became minimally responsive, she was admitted due to presumed overdose toxic encephalopathy. marginally better this am tox screen + for benzos, oxycodone, amphetamine Per son, patient's medications are locked box and she does not have access to them, but she is not Brain CT negative, LFTs, ammonia, renal function, TSH within normal limits No focal neurological deficits afebrile Son says that agitation sometimes occurs in postictal state for the patient, however patient was not witnessed to have any seizure activity in the emergency department or since admission. ?primary psychiatric issue Kejameel changed to IV for consistent administration Unable to take baseline psychiatric medications as she has NPO and not awake enough to safely take po Continue neuro checks, aspiration precautions Neurology consult pending Mild hypernatremia. decreased free water intake due to encephalopathy continue IV fluids with D5. Continue to monitor Na+ level. Pyuria No bacteria seen, less likely UTI Unable to assess for symptoms Follow urine culture Acute on chronic renal failure. resolved with IVF Polysubstance abuse. Urine drug screen positive for opiates, oxycodone, amphetamine. Addiction medicine consult when more awake Status post right total knee arthroplasty 11/02 at [facility] per records from [facility] on Eliquis 2.5 mg b.i.d. for 30 days for DVT prophylaxis - should've ended 12/03 Seizure disorder Kejameel changed to IV as unable to take po Seizure precautions Bipolar disorder. Unable to take p.o. Psych following Chronic pain syndrome on chronic abuse. Oxycodone on hold due to decreased level of consciousness. Tylenol IV as needed. Asthma. Not in acute exacerbation. DuoNeb nebs as needed. DVT prophylaxis: lovenox Code status: Full Patient requires ongoing inpatient hospitalization for acute encephalopathy treatment for close monitoring of neurological status and evaluation by neurology, psychology Quality Stroke Does the patient have a stroke diagnosis?: No VTE Prior VTE?: No VTE Risk Level:: Medical - moderate - high VTE Device Contraindication: Treatment Not Indicated VTE Drug Contraindication: N/A - Med Ordered
--- NOTE | 2023-12-10 10:52 | P.CNNE_ITS ---
History of Present Illness Data of Consult Service Date: 12/10/23 Primary Care Provider: Ailin Araujo MD [facility] Reason for consult: Seizure disorder 58 years old woman with longstanding history of behavioral disorder and seizure disorder. First seizure happened in 2013 after which she was admitted at [facility] [place]. She also had history of substance abuse and was admitted in hospital this time with change in behavior and possibility of seizure disorder but no obvious convulsion was noted. She has received significant amount of sedation because of agitation last night and was unable to provide any history. Review of Systems 2 Review of Systems: Could not be done with her [facility] Past Medical History Medical History (Updated 12/09/23 @ 16:07 by Lori Rowan NP) Altered mental state Hypotension Orthostatic hypotension Seizure disorder History of prolonged Q-T interval on ECG Psychogenic nonepileptic seizure CKD (chronic kidney disease) stage 3, GFR 30-59 ml/min COPD (chronic obstructive pulmonary disease) GERD (gastroesophageal reflux disease) Port-A-Cath in place Malabsorption Compression fracture of C3 vertebra Self-catheterizes urinary bladder Neuropathy SIADH (syndrome of inappropriate ADH production) Chronic anemia Enlarged liver Enlarged heart History of atrial fibrillation Polysubstance abuse Von Willebrand disease Factor V deficiency Depression Uterine cancer Breast cancer Migraines Asthma Seizure Surgical History Surgical History H/O knee surgery Hx of cholecystectomy History of hysterectomy H/O gastric bypass Social History Social History Household Members: Spouse Household Members Other:: One son Housing: Unknown / Unable to assess Housing Other:: House has ramps Unable to assess alcohol history related to: Unknown Alcohol intake: unknown Comment: 1:1 sitter Patient Tobacco Use Status: Tobacco use Unknown Tobacco use type: Cigarette Cigarettes Per Day: 2 e-Cigarette/Vaping Use: Never Used service: No Meds Allergies Allergy/AdvReac Type Severity Reaction Status Date / Time bee pollen [Bee Stings] Allergy Mild ANAPHYLAXIS Verified 12/08/23 18:40 codeine [Codeine] Allergy Mild ANAPHYLAXIS Verified 11/09/23 13:41 Penicillins Allergy Mild UNKNOWN Verified 11/09/23 13:41 aspirin [ASA] Allergy Unknown Verified 11/09/23 13:41 ciprofloxacin [From Cipro] Allergy Rash Verified 11/09/23 13:41 Iodinated Contrast Media Allergy Hives Verified 11/09/23 13:41 [Contrast Dye] latex Allergy Rash Verified 11/09/23 13:41 macadamia nut Allergy Anaphylaxis Verified 11/09/23 13:41 Sulfa (Sulfonamide Allergy Anaphylaxis Verified 11/09/23 13:41 Antibiotics) sulfamethoxazole Allergy Anaphylaxis Verified 11/09/23 13:41 [From Bactrim] trimethoprim [From Bactrim] Allergy Anaphylaxis Verified 11/09/23 13:41 bee stings Allergy Unknown anaphylaxis Uncoded 09/02/11 00:00 Codeine Phosphate Allergy Unknown stomach Uncoded 09/02/11 00:00 upset Penicillin Allergy Unknown anaphylaxis Uncoded 09/02/11 00:00 Active Medications: Current Medications Albuterol Sulfate (Albuterol Sulfate (0.083%) 2.5 Mg/3 Ml Vial.Neb) 2.5 mg INHALE Q2H PRN PRN Reason: Shortness of Breath/Wheezing Albuterol Sulfate (Albuterol Sulfate 90 Mcg 8 Gm Inhaler) 1 puff INHALE RQ4H PRN PRN Reason: dyspnea Apixaban (Apixaban 2.5 Mg Tablet) 2.5 mg PO BID [facility] Last Admin: 12/10/23 09:25 Dose: Not Given Bumetanide (Bumetanide 1 Mg Tablet) 0.5 mg PO BID [facility]; Protocol Last Admin: 12/10/23 09:25 Dose: Not Given Duloxetine HCl (Duloxetine Hcl 60 Mg Capsule.Dr) 60 mg PO BID [facility] Dextrose/Sodium Chloride (D51/2ns) 1,000 mls @ 80 mls/hr IVCONT .[id number] [facility] Last Infusion: 12/10/23 09:53 Dose: 0 mls/hr Levetiracetam (Keppra) 1,000 mg in 100 mls @ 400 mls/hr IV Q12H [facility] Last Admin: 12/10/23 10:22 Dose: 400 mls/hr Loratadine (Loratadine 10 Mg Tablet) 10 mg PO DAILY PRN PRN Reason: allergies Midodrine (Midodrine Hcl 5 Mg Tablet) 5 mg PO BID [facility] Last Admin: 12/10/23 09:26 Dose: Not Given Montelukast Sodium (Montelukast Sodium 10 Mg Tablet) 10 mg PO DAILY [facility] Last Admin: 12/10/23 09:26 Dose: Not Given Multivitamins/Vitamin C (Multivitamin Tablet) 1 tab PO DAILY [facility] Last Admin: 12/10/23 09:26 Dose: Not Given Olanzapine (Olanzapine 2.5 Mg Tablet) 2.5 mg PO TID [facility] Olanzapine (Olanzapine 5 Mg Tablet) 5 mg PO BEDTIME [facility] Omeprazole (Omeprazole 20 Mg Capsule.Dr) 20 mg PO DAILY@0630 [facility] Last Admin: 12/10/23 09:25 Dose: Not Given Sodium Chloride (0.9 % Sodium Chloride Flush 3 Ml Syringe) 3 ml IVFLUSH QSHIFT [facility] Last Admin: 12/10/23 09:22 Dose: 3 ml Home Medications ?Medication ?Instructions ?Recorded ?Confirmed ?Last Taken ?Type ondansetron HCl 8 mg tablet 1 tab PO TID PRN nausea/vomiting 01/29/21 12/09/23 04/28/23 06:30 History cetirizine 10 mg tablet 10 mg PO DAILY PRN allergies 04/28/23 12/09/23 04/28/23 06:30 History epinephrine 0.3 mg/0.3 mL 0.3 mg IM ONCE PRN anaphylaxis 04/28/23 12/09/23 Unknown History injection, auto-injector levetiracetam 1,000 mg tablet 1,000 mg PO BID 04/28/23 12/09/23 04/28/23 06:30 History loperamide 2 mg capsule 2 mg PO Q4H diarrhea 04/28/23 12/09/23 04/28/23 06:30 History multivitamin 1 tab PO DAILY 04/28/23 12/09/23 04/28/23 06:30 History omeprazole 20 mg capsule,delayed 20 mg PO DAILY meal grazing 04/28/23 12/09/23 04/28/23 06:30 History release sumatriptan succinate 100 mg tablet 100 mg PO DAILY PRN Migraine 04/28/23 12/09/23 Unknown History Headache clonazepam 0.5 mg tablet 0.5 mg PO BID PRN anxiety 06/01/23 12/09/23 Unknown History olanzapine 5 mg tablet 5 mg PO BEDTIME 08/03/23 12/09/23 Unknown History oxycodone 10 mg tablet 10 mg PO BID PRN Breakthrough Pain 08/03/23 12/09/23 Unknown History albuterol sulfate 90 mcg/actuation 1 puff inhalation Q4H PRN dyspnea 09/06/23 12/09/23 Unknown History aerosol inhaler montelukast 10 mg tablet 10 mg PO DAILY 09/06/23 12/09/23 Unknown History olanzapine 2.5 mg tablet 2.5 mg PO TID 09/06/23 12/09/23 Unknown History bumetanide 0.5 mg tablet 0.5 mg PO BID 11/09/23 12/09/23 Unknown History apixaban 2.5 mg tablet (Eliquis) 2.5 mg PO BID 12/09/23 12/09/23 Unknown History oxycodone 10 mg tablet 10 mg PO TID 12/09/23 12/09/23 Unknown History Physical Exam 2 Vital Signs: Vital Signs: Last Vital Signs Temp 97.6 F 12/10/23 08:00 Pulse 87 12/10/23 08:00 Resp 20 12/10/23 08:00 BP 145/85 H 12/10/23 08:00 Pulse Ox 98 12/10/23 08:00 O2 Del Method Room Air 12/10/23 08:00 BMI result Body Mass Index 25.0 Neuro: Other: Deeply asleep and I was unable to wake her up. She was resisting to eye opening. There was no abnormal posturing. Deep tendon reflexes were trace to absent. Exam was limited. Results Labs 12/10/23 06:38 12/10/23 06:38 Labs: Short CBC 12/10/23 Range/Units 06:38 WBC 6.5 (4.8-10.8) X10*3/uL Hgb 13.0 (12.0-16.0) g/dl Hct 39.6 (37.0-47.0) % Plt Count 133 L (160-400) X10*3/uL BMP 12/10/23 06:38 Sodium 146 H Potassium 3.8 Chloride 116 H Carbon Dioxide 17 L BUN 16 Creatinine 0.[address] revealed mild cortical atrophy. Microbiology Microbiology Results: Microbiology 12/08/23 19:48 Blood - Venous Blood Culture - Preliminary No growth after 24 hours. 12/08/23 19:48 Blood - Venous Blood Culture - Preliminary No growth after 24 hours. Assessment and Plan (1) Encephalopathy: Status: Acute 58 years old woman with complex underlying neuropsychiatric history. She had a generalized convulsion in 2013 after her son had a diving accident. She was admitted [facility] [place] and then continued to take anticonvulsant. Previously, there was no EEG evidence of seizure disorder. Her present admission to this hospital likely is from multifactorial etiologies including polydrug exposure and behavioral disease. Seizure disorder seems unlikely to be the main factor at this time. An EEG can be done to rule out any possibility of epileptic encephalopathy. Otherwise main issue is behavioral and drug abuse. Procedures Date of Service Date of Service: 12/10/23
[2023-12-10] MEDS: Enoxaparin Sodium 40 MG/0.4 ML SYRINGE SUBCUT (12:21)
--- NOTE | 2023-12-10 12:38 | MHC.RECOVRN ---
Went to [phone] to in response to request for Addiction Medicine consult for polysubstance use. Pt had a lot of behavioral issues last night per nurse MERLIN Conley and received multiple doses of sedating medication. Pt is currently not waking to voice or touch per nurse. T/W will attempt visit tomorrow.
[2023-12-10] MEDS: Dextrose 5 % and 0.45 % NaCl 1,000 ML 80 ML IVCONT (15:22)
[2023-12-10] MEDS: OLANZapine 2.5 MG TABLET PO ×2 (15:22→19:52)
[2023-12-10] MEDS: Acetaminophen 325 MG TABLET 650 MG PO ×2 (16:08→22:03)
[2023-12-10] MEDS: DULoxetine HCl 60 MG CAPSULE.DR PO (19:52)
[2023-12-10] MEDS: OLANZapine 5 MG TABLET PO (19:52)
[2023-12-10] MEDS: Bumetanide 1 MG TABLET 0.5 MG PO (19:52)
[2023-12-10] MEDS: Midodrine HCl 5 MG TABLET PO (20:00)
[2023-12-10] MEDS: SUMAtriptan succinate 50 MG TABLET PO (21:07)
[2023-12-11 04:00] VITALS: BP 129/64; PULSE 86; RESP 18; TEMP 36.2; O2SAT 97
[2023-12-11] MEDS: Omeprazole 20 MG CAPSULE.DR PO (06:08)
[2023-12-11 08:00] VITALS: BP 117/71; PULSE 72; RESP 20; TEMP 37.1; O2SAT 98
[2023-12-11] MEDS: DULoxetine HCl 60 MG CAPSULE.DR PO (08:11)
[2023-12-11] MEDS: Midodrine HCl 5 MG TABLET PO (08:11)
[2023-12-11 08:12] VITALS: BP 117/71
[2023-12-11] MEDS: OLANZapine 2.5 MG TABLET PO (08:12)
[2023-12-11] MEDS: Bumetanide 1 MG TABLET 0.5 MG PO (08:12)
[2023-12-11] MEDS: Montelukast Sodium 10 MG TABLET PO (08:12)
[2023-12-11] MEDS: Multivitamin TABLET 1 TAB PO (08:12)
[2023-12-11] MEDS: 0.9 % Sodium Chloride Flush 3 ML SYRINGE IVFLUSH (08:14)
--- NOTE | 2023-12-11 10:12 | P.DS_ITS ---
DS: Providers Provider Date of Service: 12/11/23 Date of admission: 12/09/23 01:35 Date of discharge: 12/11/23 Primary care physician: Ailin Araujo MD Consults: 12/09/23 02:58 Addiction Medicine Routine Consulting Provider: Addiction Covering Reason for consultation: Polysubstance abuse Has provider been notified: No 12/09/23 11:00 Consult to Psychiatry Routine Consulting Provider: Psych Covering Reason for consultation: recurrent overdoses, depression Has provider been notified: No 12/09/23 14:31 Consult for Sitter Routine Reason for consultation: safety Has provider been notified: No 12/09/23 14:38 Consult to Neurology Routine Consulting Provider: [facility] Reason for consultation: agitation ?seizur related Has provider been notified: No Attending physician on discharge: Wing Sosa Discharging clinician: Melanie Sharif DS: Diagnosis Discharge Diagnosis (1) Toxic encephalopathy: Status: Acute DS: Summary Hospital Course Hospital Course: From H&P on the day of admission Liana Krishnamurthy is a 58 years old woman has past medical history significant for bipolar disorder, seizure disorder, polysubstance abuse, depression, asthma, GERD, chronic pain syndrome, chronic opiate use and migraine was brought to the emergency department via EMS after th e patient's son noted the patient was acting strange, walking around and pacing. HPI was obtained from ED provider and chart review. No seizure activity was reported. Patient has been hospitalized multiple occasions with diagnosis of toxic encephalopathy secondary to overdoses including benzodiazepine and oxycodone. She also has had multiple hospitalization due to multiple psychiatric issues. In the ED, she was found to have normal vital signs. Blood workup is remarkable for normal CBC. There is hyponatremia 146. There are no other electrolyte imbalances. Mildly C level is not available. Creatinine is 1.56 (prior 1.41) and BUN 25. LFTs are normal except for elevated alk-phos at 144. Troponin is 4.4. UA showed trace blood, leukocyte esterase moderate with normal WBC. Toxicology is positive for opiates, oxycodone and amphetamines. Head CT scan showed no acute intracranial abnormality. ED tx: NS 1 L bolus toxic encephalopathy tox screen + for benzos, oxycodone, amphetamine. Was initially thought encephalopathy was due to over-medication with patient taking too much medication. Per son, patient's medications are locked box and she does not have access to them. Full work up including Brain CT negative, LFTs, ammonia, renal function, and TSH were all within normal limits.She did not have any focal neurological deficits, she remained afebrile. After discussion with her Son he said sometimes agitation occurs in postictal and she does reportedly have history of nonepileptic seizure in addition to epileptic seizures, however the patient was not witnessed to have any seizure activity in the emergency department or since admission. Her Keppra was changed to IV for consistent administration. She was seen by Neurology who did not feel that this represented any primary neurological or epileptic condition. Patient was initially very agitated and restless and was noted to ambulate in her room crying. Following that she slept for 12+ hours after which time she woke up awake and alert. She states that on the day prior to discharge she had her 1st exposure therapy session. This seems to have been a trigger for this event and her behavior could represent a stress induced dissociative state. She is now awake, alert, oriented, tolerating a regular diet and requesting to be discharged home. She has a follow[facility]up appointment with [facility] tomorrow. Time Attestation Discharge Coordination Time (in mins): 35 Quality: Safe Use of Opioids Does Pt have an Active Cancer Diagnosis on the Problem List?: No Quality: Stroke Does the patient have a stroke diagnosis?: No Physical Exam Vital Signs: Vital Signs: Last Vital Signs Temp 98.8 F 12/11/23 08:00 Pulse 72 12/11/23 08:00 Resp 20 12/11/23 08:00 BP 117/71 12/11/23 08:12 Pulse Ox 98 12/11/23 08:00 O2 Del Method Room Air 12/11/23 08:00 BMI result Body Mass Index 25.0 Const: General: cooperative, comfortable, no acute distress, alert and awake Nutritional Appearance: average body habitus Orientation/consciousness: patient oriented x3 Resp: Effort & Inspection: normal respiratory effort, able to speak in complete sentences, no respiratory distress and no use of accessory muscles Neuro: General: patient oriented x3, moves all extremities and CN's II-XI intact bilaterally Extrem: General: Yes no pedal edema DS: Data Data Completed and Pending Labs on day of discharge: Preliminary micro results at discharge 12/08/23 19:48 Blood Culture - Preliminary Blood - Venous No growth after 48 hours. 12/08/23 19:48 Blood Culture - Preliminary Blood - Venous No growth after 48 hours. Discharge Plan Discharge Anticipated Discharge Date/Time: 12/11/23 10:27 Patient Disposition: Home, Self-Care Discharge Diagnosis: Encephalopathy Referrals: Ailin Araujo MD [Primary Care Provider] - 1 Week Discharge Medications: Continued ondansetron HCl 8 mg tablet 1 tab PO TID PRN (Reason: nausea/vomiting) loperamide 2 mg capsule 2 mg PO Q4H multivitamin Tablet 1 tab PO DAILY cetirizine 10 mg tablet 10 mg PO DAILY PRN (Reason: allergies) sumatriptan succinate 100 mg tablet 100 mg PO DAILY PRN (Reason: Migraine Headache) omeprazole 20 mg capsule,delayed release(DR/EC) 20 mg PO DAILY epinephrine 0.3 mg/0.3 mL auto-injector 0.3 mg IM ONCE PRN (Reason: anaphylaxis) levetiracetam 1,000 mg tablet 1,000 mg PO BID duloxetine 60 mg capsule,delayed release(DR/EC) 60 mg PO BID Qty: 60 0RF oxycodone 10 mg tablet 10 mg PO TID olanzapine 2.5 mg tablet 2.5 mg PO TID montelukast 10 mg tablet 10 mg PO DAILY albuterol sulfate 90 mcg/actuation HFA aerosol inhaler 1 puff inhalation Q4H PRN (Reason: dyspnea) clonazepam 0.5 mg tablet 0.5 mg PO BID PRN (Reason: anxiety) olanzapine 5 mg tablet 5 mg PO BEDTIME oxycodone 10 mg tablet 10 mg PO BID PRN (Reason: Breakthrough Pain) bumetanide 0.5 mg tablet 0.5 mg PO BID midodrine 5 mg tablet 5 mg PO BID Qty: 60 5RF Discontinued Eliquis 2.5 mg tablet 2.5 mg PO BID Discharge Orders: Discharge Order (Routine); Ordered 12/11/23 Ordered By: Melanie Sharif Activity on Discharge: As tolerated Stand Alone Forms: Patient Portal Discharge page Print Language: Georgian Care Plan Goals: See below Health Concerns: Encephalopathy Plan of Treatment: Eliquis dose stopped as completed DVT prophylaxis following right knee surgery in October, was prescribed for 30 days and ended at end of November. Follow-up with psychiatric provider as scheduled Follow-up with PCP as needed Assessment: See discharge summary
[2023-12-11] MEDS: levETIRAcetam 1,000 MG TABLET 1000 MG PO (10:17)
[2023-12-11] MEDS: Enoxaparin Sodium 40 MG/0.4 ML SYRINGE SUBCUT (10:17)
[2023-12-11] MEDS: Loperamide HCl 2 MG CAPSULE PO (10:21)
[2023-12-11] MEDS: oxyCODONE HCl Immed Release 5 MG TABLET 10 MG PO (10:25)
[2023-12-11 10:26] LABS: Anion Gap 13 (12-20); Blood Urea Nitrogen 13 mg/dL (9-16); Calcium 9.6 mg/dL (8.4-10.2); Carbon Dioxide 21 mmol/L (22-29); Chloride 113 mmol/L (96-108); Creatinine Clr Calc Pharmacy 59.3; Estimated Glomerular Filt Rate > 60; Glucose Random 124 mg/dL (60-115); Potassium 3.8 mmol/L (3.3-5.1); Sodium 143 mmol/L (135-145)
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
--- NOTE | 2023-12-11 10:58 | MHC.CM.PN ---
Pt has been medically cleared for DC, she will go home via her [employer] PROF[employer] to transport her and resume her [employer] FIN[employer] and [facility]
[2023-12-11 11:15] VITALS: BP 108/65; PULSE 64; RESP 20; TEMP 36.8; O2SAT 96
--- NOTE | 2023-12-11 14:04 | MHC.RECOVRN ---
Met with pt in 461 after consult placed to Addiction Medicine for polysubstance use. ?Chart review completed and received report from floor nurse Yael. ? Pt BIBA. H/O seizure disorder and living with son who is her ethologist and says that pt. was acting like she had just had a seizure. She was confused, altered, not answering questions and EMS stated she was walking around apt. not responding to questions or answering commands. Pt was pt admitted for toxic encephalopathy and ROBEL. Pt sitting up in bed awake and alert. mental status has returned to baseline following the increased sedation the last few days. ? Pt reports that she is active in recovery and has been since last fall. She attends meetings regularly, has a sponsor and has a therapist she sees regularly. ? She denies misuse of prescribed meds and reports that they are locked up and she only has access to what her visiting nurse gives her. She does have multiple medical and mental health conditions that could have possibly contributed to the change in mental status. Educated pt. on resources available and she declined need for further resources at this time. Pt denies questions or concerns for t/w and denies need for follow up at this time.
== END 2023-12-11 14:16 | disposition home or self-care (01) | DRG 917 ==
LOC: HO.ED 12-09 01:37 → HO.EDOVER 12-09 01:42 → HO.IMC 12-09 07:30
PROVIDERS: Admitting Provider Internal Medicine; Emergency Provider Emergency Medicine; PCP Family Medicine; Visit Provider Physician Assistant Medical
DX: T42.4X1A Poisoning by benzodiazepines, accidental (unintentional), initial encounter (principal); G92.8 Other toxic encephalopathy; E87.0 Hyperosmolality and hypernatremia; T40.2X1A Poisoning by other opioids, accidental (unintentional), initial encounter; F19.10 Other psychoactive substance abuse, uncomplicated; F31.9 Bipolar disorder, unspecified; G40.909 Epilepsy, unspecified, not intractable, without status epilepticus; G89.4 Chronic pain syndrome; J45.909 Unspecified asthma, uncomplicated; Z91.410 Personal history of adult physical and sexual abuse; Z98.84 Bariatric surgery status; Z79.899 Other long term (current) drug therapy
CPT/HCPCS: 36415; 36600; 70450; 80048; 80053; 80076; 80307; 81001; 82140; 82803; 82947; 83605; 83735; 84443; 84484; 85025; 85027; 85610; 87040; 87086; 93005; 99285; J1642; J1644; J1650; J1953; J2060; J2359

== ENCOUNTER → 2023-12-08 18:58 | Outpatient (BNV) | payer MEDICARE, MEDICAID, SELFPAY | PROVIDERS: Admitting Provider Internal Medicine; Emergency Provider Emergency Medicine; PCP Family Medicine; Visit Provider Internal Medicine | DX: R00.1 Bradycardia, unspecified (principal) | CPT/HCPCS: 93010 ==

== ENCOUNTER → 2023-12-09 01:35 | Outpatient (BNV) | payer MEDICARE, MEDICAID, SELFPAY | PROVIDERS: Admitting Provider Internal Medicine; Emergency Provider Emergency Medicine; PCP Family Medicine; Visit Provider Internal Medicine | DX: G92.9 Unspecified toxic encephalopathy (principal) | CPT/HCPCS: 99223; 99232; 99239; 99499 ==

== ENCOUNTER → 2023-12-09 01:35 | Outpatient (BNV) | payer MEDICARE, MEDICAID, SELFPAY | PROVIDERS: Admitting Provider Internal Medicine; Emergency Provider Emergency Medicine; PCP Family Medicine; Visit Provider Psychiatry & Neurology Neurology | DX: G93.40 Encephalopathy, unspecified (principal) | CPT/HCPCS: 99222 ==

== ENCOUNTER → 2023-12-09 01:35 | Outpatient (BNV) | payer MEDICARE, MEDICAID, SELFPAY | PROVIDERS: Admitting Provider Internal Medicine; Emergency Provider Emergency Medicine; PCP Family Medicine; Visit Provider Registered Nurse | DX: F31.32 Bipolar disorder, current episode depressed, moderate (principal); R41.82 Altered mental status, unspecified | CPT/HCPCS: 99222; 99499 ==

== ENCOUNTER 2024-02-10 13:56 | Outpatient (AMB) | payer MEDICARE, MEDICAID, SELFPAY ==
--- NOTE | 2024-02-10 14:01 | HO.NEPHOV ---
Vital Signs 02/10/24 14:03 Height 5 ft 5 in Weight 150 lb 2 oz BMI 25.0 BP 104/70 Blood Pressure Location Rt brachial Position Sitting Pulse 103 H Pulse Source Pulse Oximeter Pulse Oximetry (%) 96 Oxygen Delivery Method Room Air Intake Visit Reasons: ROBEL SOSA Cyber Operator Required: No Accompanied by: Self / Same As Patient Allergies bee pollen [Bee Stings] Allergy (Mild, Verified 02/10/24 14:05) ANAPHYLAXIS codeine [Codeine] Allergy (Mild, Verified 02/10/24 14:05) ANAPHYLAXIS Penicillins Allergy (Mild, Verified 02/10/24 14:05) UNKNOWN aspirin [ASA] Allergy (Verified 02/10/24 14:05) Unknown ciprofloxacin [From Cipro] Allergy (Verified 02/10/24 14:05) Rash Iodinated Contrast Media [Contrast Dye] Allergy (Verified 02/10/24 14:05) Hives latex Allergy (Verified 02/10/24 14:05) Rash macadamia nut Allergy (Verified 02/10/24 14:05) Anaphylaxis Sulfa (Sulfonamide Antibiotics) Allergy (Verified 02/10/24 14:05) Anaphylaxis sulfamethoxazole [From Bactrim] Allergy (Verified 02/10/24 14:05) Anaphylaxis trimethoprim [From Bactrim] Allergy (Verified 02/10/24 14:05) Anaphylaxis bee stings Allergy (Unknown, Uncoded 09/02/11 00:00) anaphylaxis Codeine Phosphate Allergy (Unknown, Uncoded 09/02/11 00:00) stomach upset Penicillin Allergy (Unknown, Uncoded 09/02/11 00:00) anaphylaxis HPI Comments Details: I had the privilege of seeing Jayda for her chronic kidney disease. Her seizures are better controlled . She had been having significant pedal edema forcing her to take high-dose Bumex with resultant improvement. She remains on Bumex dose 0.5 mg twice daily. Her breast cancer is closely monitored by [facility]. She is not on any new medications. She denies any chest pain, shortness of breath, nausea, vomiting, diarrhea, weight gain, orthopnea or paroxysmal nocturnal dyspnea. She is not taking any nonsteroidal anti-inflammatory medications. She had orthostatic symptoms which has improved on midodrine. She has history of atrial fibrillation which has been under control. [facility] Medical History (Updated 12/19/23 @ 00:01 by Suzie Hernandez) Accidental medication overdose Altered mental state Hypotension Orthostatic hypotension Seizure disorder History of prolonged Q-T interval on ECG Psychogenic nonepileptic seizure CKD (chronic kidney disease) stage 3, GFR 30-59 ml/min COPD (chronic obstructive pulmonary disease) GERD (gastroesophageal reflux disease) Port-A-Cath in place Malabsorption Compression fracture of C3 vertebra Self-catheterizes urinary bladder Neuropathy SIADH (syndrome of inappropriate ADH production) Chronic anemia Enlarged liver Enlarged heart History of atrial fibrillation Polysubstance abuse Von Willebrand disease Factor V deficiency Depression Uterine cancer Breast cancer Migraines Asthma Seizure Surgical History H/O knee surgery Hx of cholecystectomy History of hysterectomy H/O gastric bypass Social History Household Members: Spouse Household Members Other:: One son Housing: Unknown / Unable to assess Housing Other:: House has ramps Unable to assess alcohol history related to: Unknown Alcohol intake: unknown Comment: 1:1 Sitter at bedside Patient Tobacco Use Status: Tobacco use Unknown Tobacco use type: Cigarette Cigarettes Per Day: 2 e-Cigarette/Vaping Use: Never Used service: No Review of Systems Const All systems reviewed & are unremarkable except as noted in HPI and below Physical Exam Vital Signs: Last Vital Signs Pulse 103 H 02/10/24 14:03 BP 104/70 02/10/24 14:03 Pulse Ox 96 02/10/24 14:03 Oxygen Delivery Method Room Air 02/10/24 14:03 BMI result Body Mass Index 25.0 Const General: comfortable and no acute distress Orientation/consciousness: patient oriented x3 HEENT Head: Yes normocephalic Mouth: Normal oral and palatal mucosa present Eyes EOM: EOMs intact bilaterally Neck Neck: Yes supple Resp Auscultation: clear to auscultation bilaterally Cardio Jugular venous distension: no JVD Rate: regular rate GI Palpation (GI): Soft to palpation Auscultation: normal bowel sounds General: Yes no CVA tenderness Back/Spine/Pelvis Back: no CVA tenderness Skin General skin exam: no rashes or lesions noted Neuro General: patient oriented x3 and moves all extremities Extrem General: Yes no pedal edema Results Reviewed Nephrology Results: Hgb 13.0 g/dl (12.0-16.0) 12/10/23 WBC 6.5 X10*3/uL (4.8-10.8) 12/10/23 Plt Count 133 X10*3/uL (160-400) L 12/10/23 Sodium 143 mmol/L (135-145) 12/11/23 Potassium 3.8 mmol/L (3.3-5.1) 12/11/23 Chloride 113 mmol/L (96-108) H 12/11/23 Carbon Dioxide 21 mmol/L (22-29) L 12/11/23 BUN 13 mg/dL (9-16) 12/11/23 Creatinine 0.93 mg/dL (0.5-1.4) 12/11/23 Calcium 9.6 mg/dL (8.4-10.2) 12/11/23 Urine Protein Negative mg/dL (Neg-Trace) 12/09/23 Assessment & Plan Assessment & Plan (1) Orthostatic hypotension: Code(s): I95.1 - Orthostatic hypotension Category: Medical (2) CKD stage 3a, GFR 45-59 ml/min: Code(s): N18.31 - Chronic kidney disease, stage 3a Category: Medical Plan Jayda has a chronic kidney disease but has H/O recurrent ROBEL following excessive diuresis. She had ROBEL but her serum creatinine is better & stable. Her volume status got optimized and is on Bumex 0.5 mg twice daily. She can have 2 mg if needed if she has excess swelling while on Bumex 0.5 mg bid. She is not consuming excess salt. I asked her not to take excessive diuretics. She can continue midodrine 5 mg twice daily. She is avoiding nonsteroidal anti-inflammatory medications. She should maintain good hydration. I asked her to repeat blood work soon. She will be seen in office in follow-up Orders: Orders Creatinine Today I95.1 - Orthostatic hypotension, N18.31 - Chronic kidney disease, stage 3a Blood Urea Nitrogen Today I95.1 - Orthostatic hypotension, N18.31 - Chronic kidney disease, stage 3a Electrolytes Today I95.1 - Orthostatic hypotension, N18.31 - Chronic kidney disease, stage 3a Calcium Today I95.1 - Orthostatic hypotension, N18.31 - Chronic kidney disease, stage 3a Medications: New bumetanide 0.5 mg PO BID 90 days 180 tabs 3RF Coding Level of Care Code Est Pt Level 4 (66574) Diagnoses Orthostatic hypotension I95.1 CKD stage 3a, GFR 45-59 ml/min N18.31
[2024-02-10 14:03] VITALS: BP 104/70; PULSE 103; O2SAT 96; BMI 25.0
== END 2024-02-10 14:30 | disposition home or self-care (01) ==
PROVIDERS: PCP Family Medicine; Visit Provider Internal Medicine Nephrology
DX: I95.1 Orthostatic hypotension (principal); N18.31 Chronic kidney disease, stage 3a
CPT/HCPCS: 99214

== ENCOUNTER → 2024-02-10 13:56 | Outpatient (BNVA) | payer MEDICARE, MEDICAID, SELFPAY | PROVIDERS: PCP Family Medicine; Visit Provider Internal Medicine Nephrology | DX: I95.1 Orthostatic hypotension (principal); N18.31 Chronic kidney disease, stage 3a | CPT/HCPCS: 99212 ==

== ENCOUNTER 2024-05-08 14:24 | Outpatient (REF) | payer MEDICARE, MEDICAID, SELFPAY ==
--- NOTE | ~2024-05-08 | XR_ITS ---
EXAMINATION: XR SHOULDER, LEFT CLINICAL INFORMATION: Pain COMPARISON: None available. TECHNIQUE: AP external rotation, Grashey, scapular Y, and axillary views of the left shoulder. FINDINGS: The bones and soft tissues are normal. No fracture. Glenohumeral and acromioclavicular alignment is anatomic with normal joint space. No abnormal soft tissue calcifications. Tunneled left-sided chest port with attention to the superior vena cava. Visualized left lung is clear. XR/XR shoulder LT min 2V IMPRESSION: Unremarkable left shoulder. Electronically signed by: Ana Pavon MD 05/08/2024 05:03 PM EDT
== END 2024-05-08 14:25 | disposition home or self-care (01) ==
LOC: HO.XRAY 14:24
PROVIDERS: PCP Family Medicine; Visit Provider Physical Medicine & Rehabilitation
DX: M25.512 Pain in left shoulder (principal)
CPT/HCPCS: 73030

== ENCOUNTER 2024-05-16 10:44 | Outpatient (AMB) | payer MEDICARE, MEDICAID, SELFPAY ==
--- NOTE | 2024-05-16 10:54 | HO.NEPHOV ---
Vital Signs 05/16/24 10:56 Height 5 ft 5 in Weight 154 lb 6 oz BMI 25.7 BP 120/80 Blood Pressure Location Lt brachial Position Sitting Intake Visit Reasons: ROBEL-Conf Automation Analyst Required: No Accompanied by: Self / Same As Patient Allergies bee pollen [Bee Stings] Allergy (Mild, Verified 05/16/24 10:56) ANAPHYLAXIS codeine [Codeine] Allergy (Mild, Verified 05/16/24 10:56) ANAPHYLAXIS Penicillins Allergy (Mild, Verified 05/16/24 10:56) UNKNOWN aspirin [ASA] Allergy (Verified 05/16/24 10:56) Unknown ciprofloxacin [From Cipro] Allergy (Verified 05/16/24 10:56) Rash Iodinated Contrast Media [Contrast Dye] Allergy (Verified 05/16/24 10:56) Hives latex Allergy (Verified 05/16/24 10:56) Rash macadamia nut Allergy (Verified 05/16/24 10:56) Anaphylaxis Sulfa (Sulfonamide Antibiotics) Allergy (Verified 05/16/24 10:56) Anaphylaxis sulfamethoxazole [From Bactrim] Allergy (Verified 05/16/24 10:56) Anaphylaxis trimethoprim [From Bactrim] Allergy (Verified 05/16/24 10:56) Anaphylaxis bee stings Allergy (Unknown, Uncoded 09/02/11 00:00) anaphylaxis Codeine Phosphate Allergy (Unknown, Uncoded 09/02/11 00:00) stomach upset Penicillin Allergy (Unknown, Uncoded 09/02/11 00:00) anaphylaxis HPI Comments Details: Jayda was seen for her chronic kidney disease. Her seizures are better controlled . She remains on Bumex dose 0.5 mg twice daily. Her breast cancer is closely monitored by [facility]. She is not on any new medications. She denies any chest pain, shortness of breath, nausea, vomiting, diarrhea, weight gain, orthopnea or paroxysmal nocturnal dyspnea. She is not taking any nonsteroidal anti-inflammatory medications. She had orthostatic symptoms which has improved on midodrine. She has history of atrial fibrillation which has been under control [facility] Medical History (Updated 12/19/23 @ 00:01 by Background Daemon) Accidental medication overdose Altered mental state Hypotension Orthostatic hypotension Seizure disorder History of prolonged Q-T interval on ECG Psychogenic nonepileptic seizure CKD (chronic kidney disease) stage 3, GFR 30-59 ml/min COPD (chronic obstructive pulmonary disease) GERD (gastroesophageal reflux disease) Port-A-Cath in place Malabsorption Compression fracture of C3 vertebra Self-catheterizes urinary bladder Neuropathy SIADH (syndrome of inappropriate ADH production) Chronic anemia Enlarged liver Enlarged heart History of atrial fibrillation Polysubstance abuse Von Willebrand disease Factor V deficiency Depression Uterine cancer Breast cancer Migraines Asthma Seizure Surgical History H/O knee surgery Hx of cholecystectomy History of hysterectomy H/O gastric bypass Social History Household Members: Spouse Household Members Other:: One son Housing: Unknown / Unable to assess Housing Other:: House has ramps Unable to assess alcohol history related to: Unknown Alcohol intake: unknown Comment: 1:1 Sitter at bedside Patient Tobacco Use Status: Tobacco use Unknown Tobacco use type: Cigarette Cigarettes Per Day: 2 e-Cigarette/Vaping Use: Never Used service: No Review of Systems Const All systems reviewed & are unremarkable except as noted in HPI and below Physical Exam Vital Signs: Last Vital Signs BP 120/80 05/16/24 10:56 BMI result Body Mass Index 25.7 Const General: comfortable and no acute distress Orientation/consciousness: patient oriented x3 HEENT Head: Yes normocephalic Mouth: Normal oral and palatal mucosa present Eyes EOM: EOMs intact bilaterally Neck Neck: Yes supple Resp Auscultation: clear to auscultation bilaterally Cardio Jugular venous distension: no JVD Rate: regular rate GI Palpation (GI): Soft to palpation Auscultation: normal bowel sounds General: Yes no CVA tenderness Back/Spine/Pelvis Back: no CVA tenderness Skin General skin exam: no rashes or lesions noted Neuro General: patient oriented x3 and moves all extremities Extrem General: Yes no pedal edema Assessment & Plan Assessment & Plan (1) CKD stage 3a, GFR 45-59 ml/min: Code(s): N18.31 - Chronic kidney disease, stage 3a Category: Medical (2) Orthostatic hypotension: Code(s): I95.1 - Orthostatic hypotension Category: Medical Plan Jayda has chronic kidney disease but has H/O recurrent ROBEL following excessive diuresis. Her serum creatinine is better & stable. Her volume status got optimized and is on Bumex 0.5 mg twice daily. She can have 2 mg if needed if she has excess swelling while on Bumex 0.5 mg bid. She is not consuming excess salt. I asked her not to take excessive diuretics. She can continue midodrine 5 mg twice daily. She is avoiding nonsteroidal anti-inflammatory medications. She should maintain good hydration. I asked her to repeat blood work soon. She will be seen in office in follow-up Orders: Orders Creatinine 4 Months I95.1 - Orthostatic hypotension, N18.31 - Chronic kidney disease, stage 3a Blood Urea Nitrogen 4 Months I95.1 - Orthostatic hypotension, N18.31 - Chronic kidney disease, stage 3a Electrolytes 4 Months I95.1 - Orthostatic hypotension, N18.31 - Chronic kidney disease, stage 3a Calcium 4 Months I95.1 - Orthostatic hypotension, N18.31 - Chronic kidney disease, stage 3a Medications: Refilled bumetanide 0.5 mg PO BID 90 days 180 tabs 3RF midodrine 5 mg PO BID 60 tabs 11RF Coding Level of Care Code Est Pt Level 4 (69951) Diagnoses CKD stage 3a, GFR 45-59 ml/min N18.31 Orthostatic hypotension I95.1
[2024-05-16 10:56] VITALS: BP 120/80; BMI 25.7
== END 2024-05-16 11:28 | disposition home or self-care (01) ==
LOC: HO.HKA 10:45
PROVIDERS: PCP Family Medicine; Visit Provider Internal Medicine Nephrology
DX: N18.31 Chronic kidney disease, stage 3a (principal); I95.1 Orthostatic hypotension
CPT/HCPCS: 99214

== ENCOUNTER → 2024-05-16 10:44 | Outpatient (BNVA) | payer MEDICARE, MEDICAID, SELFPAY | PROVIDERS: PCP Family Medicine; Visit Provider Internal Medicine Nephrology | DX: N18.31 Chronic kidney disease, stage 3a (principal); I95.1 Orthostatic hypotension; Z79.899 Other long term (current) drug therapy | CPT/HCPCS: 99212 ==

== ENCOUNTER 2024-08-30 11:46 | Emergency (ER) | payer MEDICARE, MEDICAID, SELFPAY ==
[2024-08-30 13:15] VITALS: BP 132/82; PULSE 58; O2SAT 97
[2024-08-30 13:16] VITALS: BP 131/79; PULSE 59; RESP 18; TEMP 36.9; O2SAT 98; BMI 28.8
[2024-08-30 13:26] LABS: Glucose, Whole Blood 86 mg/dL (60-115)
--- NOTE | 2024-08-30 13:52 | PC.NURSE ---
Pt. left AMA without notifying. This RN was notified by a bystander EMS personnel that pt. walked out and stated that she is leaving.
--- OUTSIDE RECORDS SUMMARY | 2024-08-30 14:56 | XMS_ITS | Continuity of Care Document ---
Author Organization [facility] [place] Address [address] [place] [id number]- Care Team Providers Care Sales Office Coordinator Name Role Phone Van [place], Ailin Pyle Primary Care Physician [place] [facility] [place]): [place]18[place] 08/17/24 [facility] [address] [place] [id number] Attending Physician: Parth Srinivasan Admitting Physician: Parth Srinivasan Referring Physician: Parth Srinivasan Encounter Type: Triage Allergies, Adverse Reactions, Alerts Substance Criticality Severity Reaction Reaction Severity Status codeine itchy with codeine alone Active penicillin Unable to assess criticality Persistent Severe anaphylaxis Active aspirin Unable to assess criticality Persistent Moderate Von Willebrand Active sulfa drugs anaphylaxis Active Depakote Drug-induced liver injury Active Contrast Dye itchy Active Latex rash Active Bee Stings Active Nuts 1 macadamia nuts cause anaphylaxis Active 1macadamia nuts Immunizations Given and Recorded Vaccine Date Status Refusal Reason SARS-CoV-2(COVID-19)mRNA-LNP vac([id number]) 05/25/24 Recorded SARS-CoV-2(COVID-19)mRNA-LNP vac([id number]) 05/06/23 Recorded influenza virus vaccine, inactivated 04/19/24 Give n influenza virus vaccine, inactivated 1 04/20/23 Gi kamar influenza virus vaccine, inactivated 04/03/22 Gregorio rded influenza virus vaccine, inactivated 2 05/20/21 Gi kamar influenza virus vaccine, inactivated 3 04/12/19 Gi kamar influenza virus vaccine, inactivated 04/17/18 Gregorio rded influenza virus vaccine, inactivated 4 06/10/17 Gi kamar influenza virus vaccine, inactivated 04/03/16 Gregorio rded influenza virus vaccine, inactivated 04/17/15 Give n influenza virus vaccine, inactivated 04/15/14 Give n influenza virus vaccine, inactivated 5 04/10/13 Gi kamar influenza virus vaccine, inactivated 03/28/13 Gregorio rded influenza virus vaccine, inactivated 04/24/12 Gregorio rded influenza virus vaccine, inactivated 04/14/11 Gregorio rded tetanus/diphtheria/pertussis, acel(Tdap) 04/19/22 Recorded tetanus/diphtheria/pertussis, acel(Tdap) 02/06/14 Given [id number] 12y+ bivalent booster vax 04/03/22 Recorded SARS-CoV-2 mRNA ([id number]) vax 11/25/21 Recorded SARS-CoV-2 (COVID-19) mRNA BNT-162b2 vac 06/24/21 Recorded SARS-CoV-2 (COVID-19) mRNA BNT-162b2 vac 10/15/20 Recorded SARS-CoV-2 (COVID-19) mRNA BNT-162b2 vac 09/24/20 Recorded Influenza Virus Vaccine (oldterm) 6 06/18/20 Recor ded pneumococcal 23-valent vaccine 04/03/14 Given 1Result Comment: [facility] [id number] 2Result Comment: [facility] [id number] 3Result Comment: [facility]# [id number] 4Result Comment: [06/10/2017] [facility]# [id number] 5Result Comment: [02/06/2014] Received Octaviano 6Result Comment: in cis Medications acetaminophen 325 mg oral tablet 650 mg, By Mouth, Every 6 hours, May take OTC not to exceed 3000 mg/day, Refills 0, Maintenance, 11/04/23 9:34:00 AM EDT, Partial fill upon patient request if the prescription is for a schedule II opioid drug. Start Date: 11/04/23 Status: Ordered Repeat number: 1 acetaminophen-butalbital 325 mg-50 mg oral tablet See Instructions, PRN as needed, 1 tablet By Mouth Every 6 hours as needed not to exceed 6 tablets/day, # 90 tablet, 1 Refills, Maintenance, 08/06/24 3:11:00 PM EST, Tablet, [facility] #[id number], Partial fill upon patient request if the prescription is for a schedule II opioid drug., 1 tabletBy Mouth Every 6 hours as needed ; not to exceed 6 tablets/day,PRN:as needed, 160, cm, 08/01/24 11:48:00 EST, Height, 67.9, kg, 04/19/24 13:50:00 EDT, Dry Weight Start Date: 08/06/24 Status: Ordered Quantity: 90.0 Unit: tablet Repeat number: 2 Indication: Migraine, unspecified, not intractable, without status migrainosus bumetanide 0.5 mg oral tablet 0.5 mg, 1, tablet, By Mouth, 2 times a day, Refills 0, Maintenance, 06/13/24 10:26:00 AM EST, Partial fill upon patient request if the prescription is for a schedule II opioid drug. Start Date: 06/13/24 Status: Ordered Repeat number: 1 clonazePAM 0.5 mg oral tablet 1 tablet = 0.5 mg, By Mouth, 2 times a day, PRN Anxiety, # 56 tablet, 0 Refills, Maintenance, 02/23/24 6:15:00 PM EDT, Tablet, [facility] #[id number], Partial fill upon patient request if the prescription is for a schedule II opioid drug., 160, cm, 02/23/24 13:31:00 EDT, Height, 67.5, kg, 02/23/24 13:31:00 EDT, Dry Weight Start Date: 02/23/24 Stop Date: 03/22/24 Status: Ordered Quantity: 56.0 Unit: tablet Repeat number: 1 duloxetine 60 mg oral enteric coated capsule 1 capsule = 60 mg, By Mouth, 2 times a day, # 180 capsule, 3 Refills, Maintenance, 12/14/25 4:39:00 PM EDT, EC Capsule, [facility] #[id number], Partial fill upon patient request if the prescription is for a schedule II opioid drug., 160, cm, 02/27/24 16:01:00 EDT, Height, 67.5, kg, 02/23/24 13:31 :00 EDT, Dry Weight Start Date: 12/14/25 Stop Date: 12/09/26 Status: Ordered Quantity: 180.0 Unit: capsule Repeat number: 4 EPINEPHrine 0.3 mg injectable solution = 0.3 mg, Intramuscular, Once, As needed for life threatening allergic reaction, # 1 each, 1 Refills, Soft Stop, 12/04/21 4:48:00 PM EDT, [facility] #[id number], dispense autoinjector, 160, cm, 12/04/21 16:21:00 EDT, Height, 55.4, kg, 10/13/21 10:10:00 EDT, Dry Weight Start Date: 12/04/21 Status: Ordered Quantity: 1.0 Unit: each Repeat number: 2 escitalopram 10 mg oral tablet 1 tablet = 10 mg, By Mouth, Daily, # 30 tablet, 5 Refills, Maintenance, 01/03/24 10:27:00 AM EDT, Tablet, Partial fill upon patient request if the prescription is for a schedule II opioid drug. Start Date: 01/03/24 Status: Ordered Quantity: 30.0 Unit: tablet Repeat number: 1 levETIRAcetam 500 mg oral tablet 2 tablet, By Mouth, 2 times a day, # 360 tablet, 1 Refills, Maintenance, 03/16/24 3:12:00 PM EDT, [facility] #[id number], 160, cm, 02/27/24 16:01:00 EDT, Height, 67.5, kg, 02/23/24 13:31:00 EDT, Dry Weight Start Date: 03/16/24 Stop Date: 09/12/24 Status: Ordered Quantity: 360.0 Unit: tablet Repeat number: 2 loperamide 2 mg oral capsule 1, capsule, By Mouth, Every 4 hours, PRN, # 180 capsule, Refills 0, Maintenance, NEEDED FOR LOOSE STOOLS, 04/03/24 7:49:00 PM EDT, Route to Pharmacy Electronically, [facility] #[id number], 160, cm, 02/27/24 16:01:00 EDT, Height, 67.5, kg, 02/23/24 13:31:00 EDT, Dry Weight Start Date: 04/03/24 Status: Ordered Quantity: 180.0 Unit: capsule Repeat number: 1 midodrine 2.5 mg oral tablet 5 mg, 2, tablet, By Mouth, 2 times a day, Refills 0, Maintenance, 10/27/23 9:46:00 AM EDT, Partial fill upon patient request if the prescription is for a schedule II opioid drug. Start Date: 10/27/23 Status: Ordered Repeat number: 1 montelukast 10 mg oral tablet 1, tablet, By Mouth, Daily, # 90 tablet, Refills 1, Maintenance, 03/29/24 11:25:00 AM EDT, Route to Pharmacy Electronically, [facility] #[id number], 160, cm, 02/27/24 16:01:00 EDT, Height, 67.5, kg, 02/23/24 13:31:00 EDT, Dry Weight Start Date: 03/29/24 Status: Ordered Quantity: 90.0 Unit: tablet Repeat number: 1 olanzapine 5 mg oral tablet 2.5 mg, 0.5, tablet, By Mouth, 2 times a day, # 30 tablet, Refills 0, Maintenance, 11/13/23 5:31:00 AM EDT, Partial fill upon patient request if the prescription is for a schedule II opioid drug. Start Date: 11/13/23 Status: Ordered Quantity: 30.0 Unit: tablet Repeat number: 1 omeprazole 20 mg oral enteric coated capsule 1 capsule, By Mouth, Daily, # 90 capsule, 0 Refills, Maintenance, 07/16/24 8:49:00 PM EST, [facility] #[id number], 160, cm, 06/13/24 10:24:00 EST, Height, 67.9, kg, 04/19/24 13:50:00 EDT, Dry Weight Start Date: 07/16/24 Status: Ordered Quantity: 90.0 Unit: capsule Repeat number: 1 ondansetron 8 mg oral tablet 1 tablet = 8 mg, By Mouth, 3 times a day, for 30 days, # 90 tablet, 5 Refills, Acute 10/16/24 2:04:00PM EDT, 04/19/24 2:04:00 PM EDT, Tablet, [facility] #[id number], Partial fill upon patient request if the prescription is for a schedule II opioid drug., 160, cm, 04/19/24 13:50:00 EDT, Height, 67.9, kg, 04/19/24 13:50:00 EDT, Dry Weight Start Date: 04/19/24 Stop Date: 10/16/24 Status: Ordered Quantity: 90.0 Unit: tablet Repeat number: 6 oxyCODONE 10 mg oral tablet 1 tablet = 10 mg, By Mouth, Every 6 hours, 0 Refills, Maintenance, 06/13/24 10:24:00 AM EST, Partialfill upon patient request if the prescription is for a schedule II opioid drug. Start Date: 06/13/24 Status: Ordered Repeat number: 1 SUMAtriptan 100 mg oral tablet See Instructions, PRN for migraine headache, 1 tablet By Mouth prn for migraine ROLLE may repeat dose in 2 hours if needed, # 9 tablet, 11 Refills, Maintenance, 04/06/23 8:42:00 AM EDT, Tablet, [email or web address] #[id number], Partial fill upon patient request if the prescription is for a schedule II opioid drug., 160, cm, 03/28/23 15:23:00 EDT, Height, 61.5, kg, 03/31/23 16:59:00 EDT, Dry Weight Start Date: 04/06/23 Status: Ordered Quantity: 9.0 Unit: tablet Repeat number: 12 Problem List Condition Confirmation Course Effective Dates Status H ealth Status Informant Altered mental status Confirmed Active Anemia Confirmed Active Anxiety Confirmed Active Asthma Confirmed Active ADHD (attention deficit hyperactivity disorder) Confirmed Active UTI (urinary tract infection) due to Enterococcus Confirmed Active Benign Mammary Dysplasia, Unspecified Confirmed Active Bipolar disease, chronic Confirmed Active Body dysmorphic disorder Confirmed Active Chronic kidney disease, stage 3b 1 Confirmed Active Chronic low back pain Confirmed Active Chronic obstructive pulmonary disease (COPD) Confirmed Active Chronic pain Confirmed Active Clostridium difficile colitis Confirmed Active Depression Confirmed Active Opiate analgesic use agreement exists Confirmed 04/07/17 Active Controlled substance agreement signed Confirmed 12/31/20 Active Eating disorder Confirmed Active Edentulous Confirmed Active History of clavicle fracture Confirmed Active Esophageal reflux disease Confirmed Active Grand mal seizure Confirmed Active History of breast cancer Confirmed Active S/P total knee arthroplasty Confirmed Active Hypertension Confirmed Active Hyponatremia Confirmed Active Malabsorption syndrome Confirmed Active Malabsorption syndrome Confirmed Active Cervical dystonia Confirmed Active Hypotension Confirmed Active Esophageal cancer Confirmed Active Laryngeal cancer Confirmed Active Migraines Confirmed Active Greater saphenous vein incompetence (per Cardiol) Confirmed Active Hypoglycemia after GI (gastrointestinal) surgery Confirmed Active Post traumatic stress disorder (PTSD) Confirmed Active Renal failure Confirmed Active Seizure Confirmed Active 1Per chart review meeting GFR criteria Social History Social History Type Response Smoking Status Former smoker, quit more than 30 days ago entered on: 06/21/18 Sex Sex Representation Female (finding) Laboratory * Monika Tracey: PERFORM Event Display: Laboratory Results Scanned Authored Date: Patient Care team information Care Team Personnel Name: Nichole Hammer Position: [facility] Onco RN Member Role: Primary Care Nurse Name: Hallie Francisco RN Position: [facility] RN Member Role: Primary Care Nurse Name: Ailin Araujo MD Position: [facility] Physician - Primary Care Member Role: PCP Address: [address] [place] [id number]- Telecom: Name: Enid Stein RN Position: [facility] RN Member Role: Primary Care Nurse Name: Danuta Canela RN Position: [facility] ED RN W/OE and Tasks Member Role: Primary Care Nurse Name: Francisca Galicia RN Position: [facility] RN Member Role: Primary Care Nurse Name: Marbin Dowd MD Position: [facility] Renal MD Member Role: Lifetime Consulting Physician Address: [address] [place] [address] [id number] [facility] [place] [address]- Telecom: Name: Ashleigh Appiah RN Position: [facility] RN Member Role: Primary Care Nurse Name: Zehra Bledsoe RN Position: [facility] RN Member Role: Primary Care Nurse Name: Loren Hatch RN Position: [facility] RN Member Role: Primary Care Nurse Name: Francisco Trevino RN Position: [facility] RN Member Role: Primary Care Nurse Name: Radha Tesfaye NP Position: [facility] Associate Professional Member Role: Primary Care Nurse Address: [address] [place] [address]- [place] Telecom: Name: Shabnam Diaz RN Position: [facility] RN Member Role: Primary Care Nurse Name: Hoa Melgar MD Position: [facility] LIME VAT TENDER MD Member Role: Lifetime LIME VAT TENDER Physician Address: [address] [facility] [place] [address]- [place] Telecom: Name: Inge Chavira RN Position: [facility] RN Member Role: Primary Care Nurse Name: Salina Whitney RN Position: [facility] Onco RN Member Role: Primary Care Nurse Name: Geri Gavin RN Position: [facility] [place] Member Role: Primary Care Nurse Name: Joan Kelly RN Position: [facility] RN Member Role: Primary Care Nurse Name: Melanie Lopez RN Position: [facility] RN Member Role: Primary Care Nurse Name: Danielle Garcia RN Position: [facility] RN Supv Member Role: Primary Care Nurse Name: Angelika Guajardo RN Position: [facility] AMB Nurse Member Role: Primary Care Nurse Name: Tamela Short RN Position: [facility] RN Member Role: Primary Care Nurse Name: Willard Vazquez RN Position: [facility] Onco RN Member Role: Primary Care Nurse Name: Orlando Persaud MD Position: [facility] Renal MD Member Role: Lifetime Consulting Physician Address: [address] [facility] [address] [facility] [place] [address]- [place] Telecom: Name: Nicolas Burnett RN Position: [facility] RN Member Role: Primary Care Nurse Name: Ailin Reeves RN Position: [facility] RN Member Role: Primary Care Nurse Name: Sandra Villalta RN Position: [facility] [place] Member Role: Primary Care Nurse Care Team Related Persons Name: MAIK RODRIGEZ Name: ORLANDO EUCEDA Name: JOANNA EUCEDA Name: AILIN EUCEDA Name: LAMONTE EUCEDA Name: SHANNAN AGUILLON Insurance Providers Guarantor name: BRIANDA EUCEDA Health Plan Information #: 1 Payer: MEDICARE PART B OUTPT Member Number: NA Policy Number: NA Group Number: NA Health Plan Information #: 2 Payer: [facility] Member Number: NA Policy Number: NA Group Number: NA
== END 2024-08-30 13:55 | disposition left against medical advice (07) ==
PROVIDERS: Emergency Provider Emergency Medicine
DX: R56.9 Unspecified convulsions (principal)
CPT/HCPCS: 82947; 85610; 99281

== ENCOUNTER 2024-09-12 10:52 | Outpatient (AMB) | payer MEDICARE, MEDICAID, SELFPAY ==
--- NOTE | 2024-09-12 10:59 | HO.NEPHOV_ITS ---
Vital Signs 09/12/24 11:03 Height 5 ft 3 in Weight 156 lb 2 oz BMI 27.7 BP 110/78 Blood Pressure Location Rt brachial Position Sitting Pulse 81 Pulse Source Pulse Oximeter Pulse Oximetry (%) 97 Oxygen Delivery Method Room Air Intake Visit Reasons: 4mon follow up-Conf w/service Donor Relations Officer Required: No Accompanied by: Self / Same As Patient Allergies bee pollen [Bee Stings] Allergy (Mild, Verified 09/12/24 11:02) ANAPHYLAXIS codeine [Codeine] Allergy (Mild, Verified 09/12/24 11:02) ANAPHYLAXIS Penicillins Allergy (Mild, Verified 09/12/24 11:02) UNKNOWN aspirin [ASA] Allergy (Verified 09/12/24 11:02) Unknown ciprofloxacin [From Cipro] Allergy (Verified 09/12/24 11:02) Rash Iodinated Contrast Media [Contrast Dye] Allergy (Verified 09/12/24 11:02) Hives latex Allergy (Verified 09/12/24 11:02) Rash macadamia nut Allergy (Verified 09/12/24 11:02) Anaphylaxis Sulfa (Sulfonamide Antibiotics) Allergy (Verified 09/12/24 11:02) Anaphylaxis sulfamethoxazole [From Bactrim] Allergy (Verified 09/12/24 11:02) Anaphylaxis trimethoprim [From Bactrim] Allergy (Verified 09/12/24 11:02) Anaphylaxis bee stings Allergy (Unknown, Uncoded 08/30/24 13:19) anaphylaxis Codeine Phosphate Allergy (Unknown, Uncoded 09/02/11 00:00) stomach upset Penicillin Allergy (Unknown, Uncoded 08/30/24 13:19) anaphylaxis HPI Comments Details: Jayda was seen for her chronic kidney disease. Her seizures had been better controlled but had 3 episodes for seizures last week with fall . She remains on Bumex dose 0.5 mg twice daily. Her breast cancer is closely monitored by [facility]. She is not on any new medications. She denies any chest pain, shortness of breath, nausea, vomiting, diarrhea, weight gain, orthopnea or paroxysmal nocturnal dyspnea. She is not taking any nonsteroidal anti- inflammatory medications. She had orthostatic symptoms which has improved on midodrine. She has history of atrial fibrillation which has been under control [facility] Medical History (Updated 12/19/23 @ 00:01 by Suzie Daemmatias) Accidental medication overdose Altered mental state Hypotension Orthostatic hypotension Seizure disorder History of prolonged Q-T interval on ECG Psychogenic nonepileptic seizure CKD (chronic kidney disease) stage 3, GFR 30-59 ml/min COPD (chronic obstructive pulmonary disease) GERD (gastroesophageal reflux disease) Port-A-Cath in place Malabsorption Compression fracture of C3 vertebra Self-catheterizes urinary bladder Neuropathy SIADH (syndrome of inappropriate ADH production) Chronic anemia Enlarged liver Enlarged heart History of atrial fibrillation Polysubstance abuse Von Willebrand disease Factor V deficiency Depression Uterine cancer Breast cancer Migraines Asthma Seizure Surgical History H/O knee surgery Hx of cholecystectomy History of hysterectomy H/O gastric bypass Social History Household Members: Spouse Household Members Other:: One son Housing: Unknown / Unable to assess Housing Other:: House has ramps Unable to assess alcohol history related to: Unknown Alcohol intake: unknown Comment: 1:1 Sitter at bedside Patient Tobacco Use Status: Tobacco use Unknown Tobacco use type: Cigarette Cigarettes Per Day: 2 e-Cigarette/Vaping Use: Never Used service: No Review of Systems Const All systems reviewed & are unremarkable except as noted in HPI and below Physical Exam Const General: comfortable and no acute distress Orientation/consciousness: patient oriented x3 HEENT Head: Yes normocephalic Mouth: Normal oral and palatal mucosa present Eyes EOM: EOMs intact bilaterally Neck Neck: Yes supple Resp Auscultation: clear to auscultation bilaterally Cardio Jugular venous distension: no JVD Rate: regular rate GI Palpation (GI): Soft to palpation Auscultation: normal bowel sounds General: Yes no CVA tenderness Back/Spine/Pelvis Back: no CVA tenderness Skin General skin exam: no rashes or lesions noted Neuro General: patient oriented x3 and moves all extremities Extrem General: Yes no pedal edema Results Reviewed Nephrology Results: Hgb 13.0 g/dl (12.0-16.0) 12/10/23 WBC 6.5 X10*3/uL (4.8-10.8) 12/10/23 Plt Count 133 X10*3/uL (160-400) L 12/10/23 Sodium 143 mmol/L (135-145) 12/11/23 Potassium 3.8 mmol/L (3.3-5.1) 12/11/23 Chloride 113 mmol/L (96-108) H 12/11/23 Carbon Dioxide 21 mmol/L (22-29) L 12/11/23 BUN 13 mg/dL (9-16) 12/11/23 Creatinine 0.93 mg/dL (0.5-1.4) 12/11/23 Calcium 9.6 mg/dL (8.4-10.2) 12/11/23 Urine Protein Negative mg/dL (Neg-Trace) 12/09/23 Assessment & Plan Assessment & Plan (1) CKD stage 3a, GFR 45-59 ml/min: Code(s): N18.31 - Chronic kidney disease, stage 3a Category: Medical (2) Orthostatic hypotension: Code(s): I95.1 - Orthostatic hypotension Category: Medical Plan Jayda has chronic kidney disease but has H/O recurrent ROBEL following excessive diuresis. Her serum creatinine is better & stable. Her volume status got optimized and is on Bumex 0.5 mg twice daily. She can have 2 mg if needed if she has excess swelling while on Bumex 0.5 mg bid. She is not consuming excess salt. I asked her not to take excessive diuretics. She can continue midodrine 5 mg twice daily. She is avoiding nonsteroidal anti-inflammatory medications. She should maintain good hydration. I asked her to repeat blood work soon. She will be seen in office in follow-up Orders: Orders Blood Urea Nitrogen 4 Months I95.1 - Orthostatic hypotension, N18.31 - Chronic kidney disease, stage 3a Calcium 4 Months I95.1 - Orthostatic hypotension, N18.31 - Chronic kidney disease, stage 3a Creatinine 4 Months I95.1 - Orthostatic hypotension, N18.31 - Chronic kidney disease, stage 3a Electrolytes 4 Months I95.1 - Orthostatic hypotension, N18.31 - Chronic kidney disease, stage 3a Medications: Refilled bumetanide 0.5 mg PO BID 90 days 180 tabs 3RF midodrine 5 mg PO BID 60 tabs 11RF Coding Level of Care Code Est Pt Level 4 (80609) Diagnoses CKD stage 3a, GFR 45-59 ml/min N18.31 Orthostatic hypotension I95.1
[2024-09-12 11:03] VITALS: BP 110/78; PULSE 81; O2SAT 97; BMI 27.7
--- OUTSIDE RECORDS SUMMARY | 2024-09-12 13:02 | XMS_ITS | Clinical Summary ---
Author Organization [employer] Address [address] [place] [address] [address] [place] [address] Care Team Providers Care Electronics Parts Sales Representative Name Role Phone Unavailable Primary Care Provider Unavailabl e Allergies Active Allergy Reactions Criticality Noted Date Comments Sulfamethoxazole-Trimethoprim 2023 Penicillins 12/15/2023 Sulfa Antibiotics 12/15/2023 Medications No known medications Encounters Date Type Department Care Team Description 08/07/2024 Telephone [facility] [address] [place] [address] [id number] Collins Mendiola, FAIZA Currie denture update from Last 3 Months Social History Tobacco Use Types Packs/Day Years Used Date Smoking Tobacco: Never Assessed Comments Unknown Sex and Gender Information Value Date Recorded Sex Assigned at Female 03/01/2023 5:26 PM EDT Legal Sex Female 4:17 PM EDT Gender Identity Female 03/01/2023 5:26 PM EDT Sexual Orientation Straight 03/07/2023 10 :24 AM EDT Plan of Treatment Health Maintenance Due Date Last Done Comments CT Colonography 1965 Colonoscopy 1965 Colorectal Cancer Screening 1965 Dental Oral Exam 1965 Dental Prophylaxis 1965 Dental X-Ray: Bitewings 1965 Dental X-Ray: Full Mouth 1965 Depression Screening 1965 FIT DNA/Cologuard 1965 FIT 1965 FOBT 1965 HIV Screening 1965 Lipid Panel 1965 SDOH Screening 1965 Sigmoidoscopy 1965 Alcohol/Substance Use Screening 1977 Tobacco Screening 1977 Hepatitis C Screening 1983 Pap Smear 1986 Cervical Cancer Screening 1995 HPV/Cotest 1995 Hepatitis B Vaccines (2 of 3 - Hep B Twinrix 3-dose series) 01/17/2013 12/20/2012 Zoster Vaccines (1 of 2) 2015 Pneumococcal Vaccine: 50+ Years (2 of 2 - PCV) 04/03/2015 04/03/2014, 02/23/2000 COVID-19 Vaccine ( - season) 2024 04/03/2022, 06/24/2021, 10/15/2020, Additional history exists Influenza Vaccine (#1) 2024 , 04/03/2022, 05/20/2021, Additional history exists DTaP/Tdap/Td Vaccines (3 - Td or Tdap) 04/19/2032 04/19/2022, 02/06/2014 RSV Patients and Patients Aged 60 years or older (1 - 1-dose 75+ series) 01/09/2040 Hepatitis A Vaccines Aged Out 12/20/2012 No long er eligible based on patient's age to complete this topic HIB Vaccines Aged Out No longer eligi ble based on patient's age to complete this topic HPV Vaccines Aged Out No longer eligi ble based on patient's age to complete this topic IPV Vaccines Aged Out No longer eligi ble based on patient's age to complete this topic Meningococcal Vaccine Aged Out No patrick ming eligible based on patient's age to complete this topic RSV under 20 months Aged Out No longe r eligible based on patient's age to complete this topic Rotavirus Vaccines Aged Out No longer eligible based on patient's age to complete this topic Insurance [facility] MEDICAID STAND ADULT
--- OUTSIDE RECORDS SUMMARY | 2024-09-12 13:02 | XMS_ITS | Encounter Summary ---
Author Organization [employer] [facility] Address [address] [place] [address] 7[address] [place] [address] Care Team Providers Care Breast Worker Name Role Phone Unavailable Primary Care Provider Unavailabl e Reason for Visit * Reason Onset Date Comments Dr. Currie denture update 08/07/2024 Encounter Details Date Type Department Care Team (Late st Contact Info) Description 08/07/2024 Telephone [facility] [address] [place] [id number] Collins Mendiola, BDS [address] [place] [id number] Currie denture update Social History Tobacco Use Types Packs/Day Years Used Date Smoking Tobacco: Never Assessed Comments Unknown Sex and Gender Information Value Date Recorded Sex Assigned at Female 03/01/2023 5:26 PM EDT Legal Sex Female 4:17 PM EDT Gender Identity Female 03/01/2023 5:26 PM EDT Sexual Orientation Straight 03/07/2023 10 :24 AM EDT documented as of this encounter Miscellaneous Notes * Telephone Encounter - Jonna De La Fuente - 08/07/2024 12:21 PM EST Patient calling in to get an update on process for dentures. Per portal patient is not due for new set until 10/2025. She states that provider was going to get in touch with insurance to provide narrative for medical necessity due to being a cancer patient and having lost so much bone. She is unable to use the dentures that she currently has even with adhesive. If you can please follow up with darlene esteves as she would like an update. She understands that currently provider is out of the office DR documented in this encounter Plan of Treatment Not on file documented as of this encounter Visit Diagnoses Not on filedocumented in this encounter
--- OUTSIDE RECORDS SUMMARY | 2024-09-12 13:02 | XMS_ITS | Encounter Summary ---
Author Organization [facility] Address [address] [place] [address] Phone Care Team Providers Care Offset Lithographic Press Setter Name Role Phone Ailin Araujo MD Primary Care Provider [phone] Encounter Details Date Type Department Care Team (Late st Contact Info) Description 04/15/2022 Telephone [facility] [address] [place] [address] Marbin Dowd MD Social History Tobacco Use Types Packs/Day Years Used Date Smoking Tobacco: Former Cigarettes Q uit: 09/02/2013 Smokeless Tobacco: Former Comments:Smoking History Inf o:Every day Alcohol Use Standard Drinks/Week Comments No 0 (1 standard drink = 0.6 oz pur e alcohol) Comments Unknown Sex and Gender Information Value Date Recorded Sex Assigned at Not on file Legal Sex Female 5:05 PM EST Gender Identity Not on file Sexual Orientation Not on file documented as of this encounter Miscellaneous Notes * Telephone Encounter - Aaliyah Partida - 04/15/2022 11:36 AM EDT Pt called to make aware that she missed her appt in March due to being Hospitalized in [place]. A follow up is already scheduled for her. documented in this encounter Plan of Treatment Not on file documented as of this encounter Visit Diagnoses Not on filedocumented in this encounter Care Teams Offset Lithographic Press Setter Relationship Specialty Start Date End Date Ailin Araujo MD [address] [place] [address] PCP - General 07/21/20 documented as of this encounter
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
== END 2024-09-12 11:28 | disposition home or self-care (01) ==
PROVIDERS: PCP Family Medicine; Visit Provider Internal Medicine Nephrology
DX: N18.31 Chronic kidney disease, stage 3a (principal); I95.1 Orthostatic hypotension
CPT/HCPCS: 99214

== ENCOUNTER → 2024-09-12 10:52 | Outpatient (BNVA) | payer MEDICARE, MEDICAID, SELFPAY | PROVIDERS: PCP Family Medicine; Visit Provider Internal Medicine Nephrology | DX: N18.31 Chronic kidney disease, stage 3a (principal); I95.1 Orthostatic hypotension | CPT/HCPCS: 99212 ==

== ENCOUNTER 2024-11-13 13:05 | Outpatient (REF) | payer MEDICARE, MEDICAID, SELFPAY ==
--- NOTE | ~2024-11-13 | XR_ITS ---
CLINICAL HISTORY: PAIN IN LEFT ANKLE Three views of the left ankle. COMPARISON: None FINDINGS: No ankle joint effusion. Small plantar calcaneal spur. Ankle mortise appears symmetric on non-stressed views. Talar dome appears intact. Distal tibia and fibula appear intact. Visualized tarsal bones appear intact. IMPRESSION: 1. No radiographic evidence of acute injury to the left ankle. 2. Plantar calcaneal spur. This document has been electronically signed by: Luigi Zaman MD on 11/14/2024 13:24:12
--- OUTSIDE RECORDS SUMMARY | 2024-11-13 14:21 | XMS_ITS | Clinical Summary ---
Author Organization [facility] Address [address] [place] [phone] Phone Care Team Providers Care Phytopathology Teacher Name Role Phone Ailin Araujo MD Primary Care Provider [phone] Allergies No known active allergies Medications bumetanide (BUMEX) 0.5 mg tablet Take 1 tablet (0.5 mg total) by mouth 2 (two) times a day. Active buPROPion SR (WELLBUTRIN SR) 200 mg 12 hr tablet Take 1 tablet (200 mg total) by mouth 1 (one) time each day in the morning. 5 Active clonazePAM (KlonoPIN) 0.5 mg tablet Take 1 tablet (0.5 mg total) by mouth 2 (two) times a day if needed. for anxiety Active DULoxetine (CYMBALTA) [address] capsule Take 2 capsules (40 mg total) by mouth 1 (one) time each day. 5 Active escitalopram (LEXAPRO) 10 mg tablet Take 1 tablet (10 mg total) by mouth 1 (one) time each day. Active escitalopram (LEXAPRO) 5 mg tablet Take 1 tablet (5 mg total) by mouth 1 (one) time each day. 5 Active levETIRAcetam (KEPPRA) 500 mg tablet Take 2 tablets (1,000 mg total) by mouth 2 times daily. 2 02/25/20 25 Active midodrine (PROAMATINE) 5 mg tablet Take 1 tablet (5 mg total) by mouth 2 (two) times a day. Active montelukast (SINGULAIR) 10 mg tablet Take 1 tablet (10 mg total) by mouth daily. 3 Active omeprazole (PriLOSEC) [address] capsule Take 1 capsule (20 mg total) by mouth 1 (one) time each day. Active oxyCODONE (ROXICODONE) 10 mg immediate release tablet Take 1 tablet (10 mg total) by mouth every 5 (five) hours if needed (breakthrough pain). Active SUMAtriptan (IMITREX) 100 mg tablet Take 1 tablet (100 mg total) by mouth 1 (one) time if needed for migraine. Active butalbitaL-acet aminophen 50-325 mg tablet Take 1 tablet by mouth every 6 (six) hours if needed (migraine). 5 Active albuterol HFA (PROAIR HFA ; PROVENTIL HFA ; VENTOLIN HFA) 90 mcg/actuation inhaler Inhale 1 puff by mouth Every 4 hours as needed. 4 Active loperamide (IMODIUM) 2 mg capsule Take 1 capsule (2 mg total) by mouth 2 times daily as needed. 3 Active ondansetron (ZOFRAN) 8 mg tablet Take 1 tablet (8 mg total) by mouth every 8 (eight) hours if needed for nausea. 4 10/17/19 25 Active Problems Problem Noted Date Diagnosed Date Seizure-like activity ([facility] V24, [facility] V28) 10/01/2024 Encounters Date Type Department Care Team Description 10/01/2024 5:07 PM EDT - 10/03/2024 11:51 AM EDT Hospital Encounter [facility] [address] [place] [phone] Tai Shepard MD Japaridze, Anna, MD Seizure-like activity ([facility] V24, [facility] V28) (Primary Dx) Discharge Disposition: Hospice/Home from Last 3 Months Surgical History Surgery Date Site/Laterality Comments HYSTERECTOMY Medical History Medical History Date Comments Seizure disorder ([facility] V24, [facility] V28) CKD (chronic kidney disease) History of migraine headaches Breast cancer ([facility] V24, [facility] V28) Uterine cancer ([facility] V24, [facility] V28) Asthma Orthostatic hypotension Venous insufficiency History of anemia due to chronic kidney disease Migraine headache PTSD (post-traumatic stress disorder) Bipolar disorder ([facility] V24, [facility] V28) Social History Tobacco Use Types Packs/Day Years Used Date Smoking Tobacco: Never Smokeless Tobacco: Never Tobacco Cessation:Counseling Given: Not Answered Housing Instability Answer Date Recorde d Are you worried that in the next 2 months you may not have stable housing? No 10/02/2024 Food Access & Nutrition Answer Date Rec orded Do you have access to a vari ety of food including fruits and vegetables? Yes 10/02/2024 Access to Healthcare Answer Date Record ed Within the last 3 months, ho w many times did you visit the emergency department for your medical care? 1 10/02/2024 Health Literacy Answer Date Recorded How often do you need to hav e someone help you when you read instructions, pamphlets, or other written material from your doctor or pharmacy? Never 10/02/2024 Caregiver: How often do you need to have someone help you when you read instructions, pamphlets, or other written material from your doctor or pharmacy? Not on file 10/02/2024 Financial Risk Answer Date Recorded How hard is it for you to pa y for the very basics like food, housing, medical care, and air conditioning / heating? Not very hard 10/02/2024 Transportation Answer Date Recorded Has the lack of transportati on kept you from meetings, work, or from getting things needed for daily living? No Has the lack of transportati on kept you from medical appointments or from getting medications? No 10/02/2024 Social Isolation Answer Date Recorded How often do you feel lonely or isolated from th ose around you? Never 10/02/2024 Food Risk Answer Date Recorded Within the past 12 months we worried whether our food would run out before we got money to buy more. Never true 10/02/2024 Within the past 12 months th e food we bought just didn't last and we didn't have money to get more. Never true 10/02/2024 Dependent Care Answer Date Recorded Do you need help finding or paying for care for your loved ones. For example, children's nursery assistant or elderly care for an older adult? No 10/02/2024 Education Answer Date Recorded Do you think completing more education or training, like finishing a GED, going to college, or learning a trade, would be helpful for you? No 10/02/2024 Employment and Income Answer Date Recor ded During the last four weeks, have you been actively looking for work? No 10/02/2024 Living Situation Answer Date Recorded What is your living situation? 0 10/02/2024 Interpersonal Safety Answer Date Record ed Physical Abuse 10/02/2024 Verbal Abuse 10/02/2024 Comments Unknown Sex and Gender Information Value Date Recorded Sex Assigned at Female 10/01/2024 6:01 PM EDT Legal Sex Female 2:21 PM EDT Gender Identity Female 10/01/2024 6:01 PM EDT Sexual Orientation Straight 10/01/2024 6: 01 PM EDT Obstetrics History Last Filed Vital Signs Vital Sign Reading Time Taken Comments Blood Pressure 124/79 10/03/2024 7:29 AM EDT Pulse 59 10/03/2024 7:29 AM EDT Temperature 36.4 ??C (97.6 ??F) 10/03/2024 7:29 AM ED T Respiratory Rate 18 10/03/2024 7:29 AM EDT Oxygen Saturation 99% 10/03/2024 7:29 AM EDT Inhaled Oxygen Concentration - - Weight 62.1 kg (137 lb) 10/01/2024 2:53 PM EDT Height 162.6 cm (5' 4 ) 10/01/2024 2:53 PM EDT Body Mass Index 23.52 10/01/2024 2:53 PM EDT Plan of Treatment Health Maintenance Due Date Last Done Comments Breast Cancer Screening 1965 Zoster Vaccines (1 of 2) 01/09/1984 Cervical Cancer Screening: Pap Smear 1986 Hepatitis A Vaccines (2 of 3 - Hep A Twinrix risk 3-dose series) 01/17/2013 12/20/2012 Hepatitis B Vaccines (2 of 3 - Hep B Twinrix 3-dose series) 01/17/2013 12/20/2012 Pneumococcal Vaccine: 50+ Years (3 of 3 - PCV) 04/03/2015 04/03/2014, 02/23/2000 Pneumococcal Vaccine: Pediatrics (0 to 5 Years) and At-Risk Patients (6 to 64 Years) (3 of 3 - PCV) 04/03/2015 04/03/2014, 02/23/2000 Colorectal Cancer Screening: Colonoscopy 10/02/2024 Depression Screening 10/02/2024 HIV Screening 10/02/2024 Hepatitis C Screening 10/02/2024 Medicare Annual Wellness Visit 10/02/2024 COVID-19 Vaccine (8 - Pfizer risk season) 2024 05/25/2024, 05/06/2023, 04/03/2022, Additional history exists Social Influencers of Health Screening 10/02/2025 10/02/2024 Hypertension/CHF/CAD Annual BMP Blood Test 10/03/2025 10/03/2024, 10/02/2024, 10/01/2024, Additional history exists Cholesterol Screening (Lipid Panel) 01/29/2028 01/28/2023 DTaP,Tdap,and Td Vaccines (3 - Td or Tdap) 04/19/2032 04/19/2022, 02/06/2014 RSV Immunization Adult Patients (1 - 1-dose 75+ series) 01/09/2040 Influenza Vaccine Completed 04/19/2024, , 04/03/2022, Additional history exists HIB Vaccines Aged Out No longer eligi ble based on patient's age to complete this topic HPV Vaccines Aged Out No longer eligi ble based on patient's age to complete this topic IPV Vaccines Aged Out No longer eligi ble based on patient's age to complete this topic MMR Vaccines Aged Out No longer eligi ble based on patient's age to complete this topic Meningococcal ACWY Vaccine Aged Out N o longer eligible based on patient's age to complete this topic Meningococcal B Vaccine Aged Out No l onger eligible based on patient's age to complete this topic RSV Immunization Patients Under 20 months Aged Out No longer eligible based on patient's age to complete this topic Varicella Vaccines Aged Out No longer eligible based on patient's age to complete this topic Procedures Procedure Name Priority Date/Time Associated Diagnosis Comments CBC WITH AUTO DIFFERENTIAL Routine 10/03/2024 5:51 AM EDT CBC AND DIFFERENTIAL Routine 10/03/2024 5:51 AM EDT BASIC METABOLIC PANEL Routine 10/03/2024 5:51 AM EDT XR KNEE 4+ VIEWS BILAT Routine 9:32 AM EDT CBC WITH AUTO DIFFERENTIAL Routine 10/02/2024 5:06 AM EDT BASIC METABOLIC PANEL Routine 10/02/2024 5:06 AM EDT CBC AND DIFFERENTIAL Routine 10/02/2024 5:06 AM EDT POC GLUCOSE STAT 10/01/2024 9:53 PM EDT POCT GLUCOSE BLOOD Routine 10/01/2024 9: 52 PM EDT XR CHEST 1 VIEW STAT 10/01/2024 8:47 PM EDT TREJO URINE CULTURE TUBE STAT 10/01/2024 8:27 PM EDT URINALYSIS WITH REFLEX MICROSCOPIC AND CULTURE STAT 10/01/2024 8:27 PM EDT URINALYSIS WITH REFLEX MICROSCOPIC AND CULTURE STAT 10/01/2024 8:27 PM EDT CULTURE URINE STAT 10/01/2024 8:27 PM EDT TROPONIN I HIGH SENSITIVITY STAT 10/01/2024 8:[address] CERVICAL SPINE WO CONTRAST STAT 10/01/2024 6:[address] MAXILLOFACIAL WO CONTRAST STAT 10/01/2024 6:[address] HEAD WO CONTRAST STAT 10/01/2024 6 :21 PM EDT RESPIRATORY VIRUS PANEL MOLECULAR STUDY STAT 10/01/2024 6:14 PM EDT TROPONIN I HIGH SENSITIVITY STAT 10/01/2024 6:10 PM EDT LACTATE, WITH REFLEX STAT 10/01/2024 6:10 PM EDT CBC WITH AUTO DIFFERENTIAL STAT 10/01/2024 6:08 PM EDT LEVETIRACETAM LEVEL STAT 10/01/2024 6 :08 PM EDT PROLACTIN STAT 10/01/2024 6:08 PM EDT MAGNESIUM STAT 10/01/2024 6:08 PM EDT BASIC METABOLIC PANEL STAT 10/01/2024 6:08 PM EDT CBC AND DIFFERENTIAL STAT 10/01/2024 6:08 PM EDT POCT GLUCOSE BLOOD Routine 10/01/2024 5: 22 PM EDT from Last 3 Months Results * (ABNORMAL) CBC auto differential (10/03/2024 5:51 AM EDT) Only the most recent of3 resultswithin the time period is included. WBC 6.9 4.8 - 10.8 K/mcL LAB HEMETOLOGY METHOD 10/03/2024 6:33 AM EDT [facility] RBC 3.60(L) 3.80 - 4.80 M/mcL LAB HEMETOLOGY METHOD 10/03/2024 6:33 AM EDT [facility] Hemoglobin 11.6 11.5 - 16.0 g/dL LAB HEMETOLOGY METHOD 10/03/2024 6:33 AM EDT [facility] Hematocrit 36.0 35.0 - 47.0 % LAB HEMETOLOGY METHOD 10/03/2024 6:33 AM T [facility] MCV 100.0(H) 79.0 - 98.0 FL LAB HEMETOLOGY METHOD 10/03/2024 6:33 AM [facility] MCH 32.2(H) 27.0 - 32.0 pcg LAB HEMETOLOGY METHOD 10/03/2024 6:33 AM [facility] MCHC 32.2 32.0 - 37.0 g/dL LAB HEMETOLOGY METHOD 10/03/2024 6:33 AM [facility] RDW 13.2 11.0 - 15.0 % LAB HEMETOLOGY METHOD 10/03/2024 6:33 AM [facility] Platelets 157 130 - 400 K/mcL LAB HEMETOLOGY METHOD 10/03/2024 6:33 AM [facility] MPV 10.9 7.0 - 11.0 FL LAB HEMETOLOGY METHOD 10/03/2024 6:33 AM [facility] NRBC 0.0 <1.0 % LAB HEMETOLOGY METHOD 10/03/2024 6:33 AM [facility] NRBC Absolute 0.00 <0.10 K/mcL LAB HEMETOLOGY METHOD 10/03/2024 6:33 AM [facility] Neutrophils Relative 65.9 % LAB HEMETOLOGY METHOD 10/03/2024 6:33 AM [facility] Lymphocytes Relative 26.7 % LAB HEMETOLOGY METHOD 10/03/2024 6:33 AM [facility] Monocytes Relative 7.0 % LAB HEMETOLOGY METHOD 10/03/2024 6:33 AM [facility] Eosinophils Relative 0.0 % LAB HEMETOLOGY METHOD 10/03/2024 6:33 AM [facility] Basophils Relative 0.0 % LAB HEMETOLOGY METHOD 10/03/2024 6:33 AM [facility] Immature Granulocytes Relative 0.4 % LAB HEMETOLOGY METHOD 10/03/2024 6:33 AM EDT [facility] Neutrophils Absolute 4.52 1.50 - 7.00 K/mcL LAB HEMETOLOGY METHOD 10/03/2024 6:33 AM EDT [facility] Lymphocytes Absolute 1.83 1.00 - 5.00 K/mcL LAB HEMETOLOGY METHOD 10/03/2024 6:33 AM EDT [facility] Monocytes Absolute 0.48 0.20 - 1.00 K/mcL LAB HEMETOLOGY METHOD 10/03/2024 6:33 AM EDT [facility] Eosinophils Absolute 0.00 0.00 - 0.50 K/mcL LAB HEMETOLOGY METHOD 10/03/2024 6:33 AM EDT [facility] Basophils Absolute 0.00 0.00 - 0.20 K/mcL LAB HEMETOLOGY METHOD 10/03/2024 6:33 AM EDT [facility] Immature Granulocytes Absolute 0.03 0.00 - 0.03 K/mcL LAB HEMETOLOGY METHOD 10/03/2024 6:33 AM EDT [facility] Blood Venous blood specimen / Unknown Venipuncture / Unknown 10/03/2024 5:51 AM EDT 10/03/2024 6:13 AM EDT us Justina Ramos MD LAB BLOOD ORDERABLES Final Res ult [facility] [address] [place] [address], * (ABNORMAL) Basic metabolic panel (10/03/2024 5:51 AM EDT) Only the most recent of3 resultswithin the time period is included. Sodium 141 133 - 145 mmol/L LAB CHEMISTRY METHOD 10/03/2024 7:09 AM EDT [facility] Potassium 3.6 3.5 - 5.5 mmol/L LAB CHEMISTRY METHOD 10/03/2024 7:09 AM [facility] Chloride 109 96 - 110 mmol/L LAB CHEMISTRY METHOD 10/03/2024 7:09 AM [facility] CO2 28 21 - 32 mmol/L LAB CHEMISTRY METHOD 10/03/2024 7:09 AM [facility] Anion Gap 4 3 - 11 LAB CHEMISTRY METHOD 10/03/2024 7:09 AM [facility] Glucose 84 70 - 100 mg/dL LAB CHEMISTRY METHOD 10/03/2024 7:09 AM [facility] BUN 16 5 - 25 mg/dL LAB CHEMISTRY METHOD 10/03/2024 7:09 AM [facility] Creatinine 1.11(H) 0.50 - 1.10 mg/dL LAB CHEMISTRY METHOD 10/03/2024 7:09 AM [facility] eGFR 57(L) >=60 mL/min/1. 73m2 LAB CHEMISTRY METHOD 10/03/2024 7:09 AM [facility] Comment:Calculation based on the??Chronic Kidney Disease Epidemiology Collaboration (CKD-EPI) equation refit??without adjustment for race. BUN/Creatinine Ratio 14.4 LAB CHEMISTRY METHOD 10/03/2024 7:09 AM [facility] Calcium 8.8 8.5 - 10.5 mg/dL LAB CHEMISTRY METHOD 10/03/2024 7:09 AM [facility] Blood Venous blood specimen / Unknown Venipuncture / Unknown 10/03/2024 5:51 AM EDT 10/03/2024 6:13 AM EDT us Justina Ramos MD LAB BLOOD ORDERABLES Final Res ult [facility] [address] [place] [address], * XR Knee 4+ Views bilat (10/02/2024 9:32 AM EDT) Anatomical Region Laterality Modality Lower Extremities, Knee Bilateral [facility] 10/02/2024 9:34 AM EDT Impressions 10/02/2024 9:36 AM EDT No acute findings. ??Satisfactory appearance following previous bilateral total knee replacement surgery. Code 14287, 00878 -------- FINAL REPORT -------- Dictated By: Rj Melara Dictated Date: 10/02/2024 09:34 ET Assigned Physician: Rj Melara Reviewed and Electronically Signed By: Rj Melara Signed Date: 10/02/2024 09:36 ET Workstation ID: [id number] Transcribed By: Self Edit Transcribed Date: 10/02/2024 09:34 ET Narrative 10/02/2024 9:36 AM EDT HISTORY: The patient is a 59-year-old female with bilateral knee pain following a fall. FINDINGS: AP, lateral, internal rotation, and external rotation views of the right knee, along with AP, lateral, internal rotation, and external rotation views of the left knee, are obtained. ??No prior study is available for comparison. ??This examination demonstrates that the patient has undergone previous bilateral total knee replacement surgery. ??There is good relationship of the prosthetic elements to each other and to the surrounding bony structures. ??There is no radiographic evidence of loosening or infection of the prostheses. There is no fracture or dislocation. ??No joint effusion or other soft tissue abnormality is seen. Procedure Note Rj Melara MD - 10/02/2024 HISTORY: The patient is a 59-year-old female with bilateral knee painfollowing a fall. FINDINGS: AP, lateral, internal rotation, and external rotation views ofthe right knee, along with AP, lateral, internal rotation, and externalrotation views of the left knee, are obtained. No prior study isavailable for comparison. This examination demonstrates that the patienthas undergone previous bilateral total knee replacement surgery. There isgood relationship of the prosthetic elements to each other and to thesurrounding bony structures. There is no radiographic evidence ofloosening or infection of the prostheses. There is no fracture ordislocation. No joint effusion or other soft tissue abnormality isseen. IMPRESSION: No acute findings. Satisfactory appearance following previous bilateraltotal knee replacement surgery. Code 14713, 23723 -------- FINAL REPORT -------- Dictated By: Rj Melara Dictated Date: 10/02/2024 09:34 ET Assigned Physician: Rj Melara Reviewed and Electronically Signed By: Rj Melara Signed Date: 10/02/2024 09:36 ET Workstation ID: [id number] Transcribed By: Self Edit Transcribed Date: 10/02/2024 09:34 ET us Nicolasa Allen TOLL TICKET CLERK IMG XR PROCEDURES Final Result * POCT glucose manually resulted (10/01/2024 9:53 PM EDT) Glucose POC 73 70 - 110 mg/dL Blood Capillary blood specimen / Unknown 10/01/2024 9:53 PM EDT us Luan SESAY POINT OF CARE TEST ENTER/ EDIT ORDERABLES Final Result * POCT Glucose, blood (10/01/2024 9:52 PM EDT) Only the most recent of2 resultswithin the time period is included. Glucose POCT 73 70 - 100 mg/dL 10/01/2024 9:52 PM EDT [facility] Blood Capillary blood specimen / Unknown 10/01/2024 9:52 PM EDT 10/01/2024 9:53 PM EDT Tai Shepard MD LAB POINT OF CARE TEST DOCKED DEVICE UNSOLICITED RESULTS Final Result [facility] [address] [place] [address], [place] [phone] * XR Chest 1 View (10/01/2024 8:47 PM EDT) Anatomical Region Laterality Modality Body Radiographic Erika ging 10/02/2024 9:01 AM EDT Impressions 10/02/2024 9:02 AM EDT Impression: 1. Port-A-Cath well positioned. 2. Lungs grossly clear. Telerad SHAMA ([id number]) -------- FINAL REPORT -------- Dictated By: Jayda Schwartz Dictated Date: 10/02/2024 09:01 ET Assigned Physician: Jayda Schwartz Reviewed and Electronically Signed By: Jayda Schwartz Signed Date: 10/02/2024 09:02 ET Workstation ID: [id number] Transcribed By: Self Edit Transcribed Date: 10/02/2024 09:01 ET Narrative 10/02/2024 9:02 AM EDT History: Syncope. Comparison: No comparison imaging at this institution. Findings: Portable AP upright chest at 8:40 PM. The cardiac silhouette is normal in size. A Port-A-Cath is seen on the left, tip position at the level of the distal SVC. Hilar contours and pulmonary vascularity are within normal limits. The lungs are grossly clear. The costophrenic angles are sharp. Procedure Note Jayda Schwartz MD - 10/02/2024 History: Syncope. Comparison: No comparison imaging at this institution. Findings: Portable AP upright chest at 8:40 PM. The cardiac silhouette is normal insize. A Port-A-Cath is seen on the left, tip position at the level of thedistal SVC. Hilar contours and pulmonary vascularity are within normallimits. The lungs are grossly clear. The costophrenic angles are sharp. IMPRESSION: Impression: 1. Port-A-Cath well positioned. 2. Lungs grossly clear. Telerad SHAMA ([id number]) -------- FINAL REPORT -------- Dictated By: Jayda Schwartz Dictated Date: 10/02/2024 09:01 ET Assigned Physician: Jayda Schwartz Reviewed and Electronically Signed By: Jayda Schwartz Signed Date: 10/02/2024 09:02 ET Workstation ID: [id number] Transcribed By: Self Edit Transcribed Date: 10/02/2024 09:01 ET us Luan SESAY IMG XR PROCEDURES Final R esult * (ABNORMAL) Urinalysis with reflex microscopic and culture (10/01/2024 8:27 PM EDT) Specific [place] Urine 1.019 1.003 - 1.030 LAB URINALYSIS - AUTOMATED METHOD 10/01/2024 9:01 PM [facility] pH, Urine 6.0 5.0 - 8.0 pH LAB URINALYSIS - AUTOMATED METHOD 10/01/2024 9:01 PM [facility] Leukocytes, Urine Small(A) Negative LAB URINALYSIS - AUTOMATED METHOD 10/01/2024 9:01 PM [facility] Nitrite, Urine Negative Negative LAB URINALYSIS - AUTOMATED METHOD 10/01/2024 9:01 PM [facility] Protein, Urine Trace <=Trace mg/dL LAB URINALYSIS - AUTOMATED METHOD 10/01/2024 9:01 PM [facility] Glucose, Urine Negative Negative mg/dL LAB URINALYSIS - AUTOMATED METHOD 10/01/2024 9:01 PM [facility] Ketones, Urine Negative Negative mg/dL LAB URINALYSIS - AUTOMATED METHOD 10/01/2024 9:01 PM [facility] Urobilinogen, Urine 0.2 0.2 - 1.0 mg/dL LAB URINALYSIS - AUTOMATED METHOD 10/01/2024 9:01 PM [facility] Bilirubin, Urine Negative Negative LAB URINALYSIS - AUTOMATED METHOD 10/01/2024 9:01 PM [facility] Blood, Urine Negative Negative LAB URINALYSIS - AUTOMATED METHOD 10/01/2024 9:01 PM [facility] RBC, Urine 1.2 0 - 4 /HPF LAB URINALYSIS - AUTOMATED METHOD 10/01/2024 9:01 PM EDT [facility] WBC, Urine 12.3(H) 0 - 4 /HPF LAB URINALYSIS - AUTOMATED METHOD 10/01/2024 9:01 PM EDT [facility] Squamous Epithelial, Urine 22 0 - 60 /LPF LAB URINALYSIS - AUTOMATED METHOD 10/01/2024 9:01 PM EDT [facility] Bacteria, Urine Negative Negative /HPF LAB URINALYSIS - AUTOMATED METHOD 10/01/2024 9:01 PM EDT [facility] Hyaline Casts, Urine 0.0 0 - 3 /LPF LAB URINALYSIS - AUTOMATED METHOD 10/01/2024 9:01 PM EDT [facility] Urine Urine specimen obtained by clean catch procedure / Unknown Non-blood Collection / Unknown 10/01/2024 8:27 PM EDT 10/01/2024 8:43 PM EDT Luan SESAY LAB URINE ORDERABLES Inna l Result Performing Organization Address City/[facility]/ZIP Co de Phone Number [facility] [address] [place] [address], [place] [phone] * Trejo urine culture tube (10/01/2024 8:27 PM EDT) Extra Tube Hold for add-ons. 10/01/2024 10:02 PM EDT [facility] Comment:Auto resulted. Urine Urine specimen obtained by clean catch procedure / Unknown Non-blood Collection / Unknown 10/01/2024 8:27 PM EDT 10/01/2024 8:43 PM EDT Luan SESAY LAB URINE ORDERABLES Inna l Result [facility] [address] [place] [address], [place] [phone] * Culture urine (10/01/2024 8:27 PM EDT) [facility] Culture, Urine <10,000 cfu/mL Mixed bacterial ciera 10/03/2024 1:19 PM EDT [facility] Urine Urine specimen obtained by clean catch procedure / Unknown Non-blood Collection / Unknown 10/01/2024 8:27 PM EDT 10/01/2024 9:01 PM EDT Luan SESAY LAB MICROBIOLOGY - GENERA L ORDERABLES Final Result Performing Organization Address City/[facility]/ZIP Co de Phone Number [facility] [address] [place] [address], [place] [phone] * Troponin I high sensitivity (NOW and then in 1 hour) (10/01/2024 8:14 PM EDT) Only the most recent of2 resultswithin the time period is included. [facility] High Sensitivity Troponin I 10 <=54 ng/L LAB CHEMISTRY METHOD 10/01/2024 8:45 PM EDT [facility] Blood Venous blood specimen / Unknown Venipuncture / Unknown 10/01/2024 8:14 PM EDT 10/01/2024 8:19 PM EDT Narrative [facility] - 10/01/2024 8:45 PM EDT High levels of biotin in samples may falsely decrease hsTroponin values. ??Use caution when interpreting hsTroponin results in patients taking biotin who exhibit renal impairment (eGFR <60) or in patients taking more than 20 mg/day of biotin. Luan SESAY LAB BLOOD ORDERABLES Inna l Result [facility] [address] [place] [address], [place] [phone] * CT Cervical Spine wo Contrast (10/01/2024 6:21 PM EDT) Anatomical Region Laterality Modality Spine, C-spine Computed Tomogra phy 10/01/2024 6:48 PM EDT Impressions 10/01/2024 6:48 PM EDT Impression: 1. No cervical vertebral fracture or traumatic malalignment. This document has been electronically signed by: Tanner Rodriguez MD on 10/01/2024 18:48:24 Narrative 10/01/2024 6:48 PM EDT INDICATION: ? seizure, found on floor in ED, AMS CT cervical spine without contrast Comparison: None Findings: Normal limited view of the intracranial contents. Soft tissues of the neck are normal. Lung apices are normal. 4 mm anterolisthesis L3 on L4 appears degenerative in nature. Otherwise, maintained vertebral body alignment. No fractures or dislocations. Diffuse degenerative disc disease is present, most significant at C3-4 and C5-7 levels. Bilateral facet arthropathy is present. Procedure Note Tanner Rodriguez MD - 10/01/2024 INDICATION: ? seizure, found on floor in ED, AMS CT cervical spine without contrast Comparison: None Findings: Normal limited view of the intracranial contents. Soft tissues of theneck are normal. Lung apices are normal. 4 mm anterolisthesis L3 on L4 appears degenerative in nature. Otherwise, maintained vertebral body alignment. No fractures or dislocations.Diffuse degenerative disc disease is present, most significant at C3-4 and C5-7 levels. Bilateral facet arthropathy is present. IMPRESSION: Impression: 1. No cervical vertebral fracture or traumatic malalignment. This document has been electronically signed by: Tanner Rodriguez MD on 10/01/2024 18:48:[address] PROCEDURES Final R esult * CT Maxillofacial wo Contrast (10/01/2024 6:21 PM EDT) Anatomical Region Laterality Modality Head and Neck Computed Tomogra phy 10/01/2024 6:51 PM EDT Impressions 10/01/2024 6:51 PM EDT Impression: 1. Unremarkable maxillofacial CT This document has been electronically signed by: Tanner Rodriguez MD on 10/01/2024 18:51:12 Narrative 10/01/2024 6:51 PM EDT INDICATION: ? seizure, found on floor in ED, AMS CT maxillofacial without contrast Comparison: None Findings: No fractures. Paranasal sinuses and mastoid air cells clear. Orbits normal. Temporomandibular joints intact. Visualized intracranial contents are normal. Soft tissues unremarkable Procedure Note Tanner Rodriguez MD - 10/01/2024 INDICATION: ? seizure, found on floor in ED, AMS CT maxillofacial without contrast Comparison: None Findings: No fractures. Paranasal sinuses and mastoid air cells clear. Orbitsnormal. Temporomandibular joints intact. Visualized intracranial contents are normal. Soft tissues unremarkable IMPRESSION: Impression: 1. Unremarkable maxillofacial CT This document has been electronically signed by: Tanner Rodriguez MD on 10/01/2024 18:51:[address] PROCEDURES Final R esult * CT Head wo Contrast (10/01/2024 6:21 PM EDT) Anatomical Region Laterality Modality Head and Neck Computed Tomogra phy 10/01/2024 6:49 PM EDT Impressions 10/01/2024 6:49 PM EDT Impression: 1. No acute intracranial abnormalities. This document has been electronically signed by: Tanner Rodriguez MD on 10/01/2024 18:49:53 Narrative 10/01/2024 6:49 PM EDT INDICATION: ? seizure, found on floor in ED, AMS CT head without contrast Comparison: None Findings: No intracranial mass, midline shift, hydrocephalus, or acute hemorrhage. No CT evidence of acute ischemia. Visualized paranasal sinuses and mastoid air cells normal. Orbits unremarkable. No skull fracture Procedure Note Tanner Rodriguez MD - 10/01/2024 INDICATION: ? seizure, found on floor in ED, AMS CT head without contrast Comparison: None Findings: No intracranial mass, midline shift, hydrocephalus, or acute hemorrhage. No CT evidence of acute ischemia. Visualized paranasal sinuses and mastoid air cells normal. Orbits unremarkable. No skull fracture IMPRESSION: Impression: 1. No acute intracranial abnormalities. This document has been electronically signed by: Tanner Rodriguez MD on 10/01/2024 18:49:[address] PROCEDURES Final R esult * Respiratory virus panel molecular study (10/01/2024 6:14 PM EDT) Adenovirus Detection by PCR Not Detected Not Detected LAB MICROBIOLOGY METHOD 10/01/2024 7:57 PM EDT [facility] Influenza A PCR Not Detected Not Detected LAB MICROBIOLOGY METHOD 10/01/2024 7:57 PM EDT [facility] Influenza B PCR Not Detected Not Detected LAB MICROBIOLOGY METHOD 10/01/2024 7:57 PM EDT [facility] Coronavirus 229E Not Detected Not Detected LAB MICROBIOLOGY METHOD 10/01/2024 7:57 PM EDT [facility] Coronavirus HKU1 Not Detected Not Detected LAB MICROBIOLOGY METHOD 10/01/2024 7:57 PM EDT [facility] Coronavirus OC43 Not Detected Not Detected LAB MICROBIOLOGY METHOD 10/01/2024 7:57 PM EDT [facility] Coronavirus NL63 Not Detected Not Detected LAB MICROBIOLOGY METHOD 10/01/2024 7:57 PM EDT [facility] Parainfluenza Virus 1 Not Detected Not Detected LAB MICROBIOLOGY METHOD 10/01/2024 7:57 PM EDT [facility] Parainfluenza Virus 2 Not Detected Not Detected LAB MICROBIOLOGY METHOD 10/01/2024 7:57 PM EDT [facility] Parainfluenza Virus 3 Not Detected Not Detected LAB MICROBIOLOGY METHOD 10/01/2024 7:57 PM EDT [facility] Parainfluenza Virus 4 Not Detected Not Detected LAB MICROBIOLOGY METHOD 10/01/2024 7:57 PM EDT [facility] RSV PCR Not Detected Not Detected LAB MICROBIOLOGY METHOD 10/01/2024 7:57 PM EDT [facility] Human Metapneumovirus A and B Not Detected Not Detected LAB MICROBIOLOGY METHOD 10/01/2024 7:57 PM EDT [facility] Rhinovirus/Entero virus Not Detected Not Detected LAB MICROBIOLOGY METHOD 10/01/2024 7:57 PM EDT [facility] Bordetella pertussis Not Detected Not Detected LAB MICROBIOLOGY METHOD 10/01/2024 7:57 PM EDT [facility] Bordetella parapertussis Not Detected Not Detected LAB MICROBIOLOGY METHOD 10/01/2024 7:57 PM EDT [facility] Mycoplasma pneumo by PCR Not Detected Not Detected LAB MICROBIOLOGY METHOD 10/01/2024 7:57 PM EDT [facility] Chlamydia pneumoniae Not Detected Not Detected LAB MICROBIOLOGY METHOD 10/01/2024 7:57 PM EDT [facility] SARS COV-2 Not Detected Not Detected LAB MICROBIOLOGY METHOD 10/01/2024 7:57 PM EDT [facility] Swab Both anterior nares / Unknown Non-blood Collection / Unknown 10/01/2024 6:14 PM EDT 10/01/2024 7:02 PM EDT Narrative [facility] - 10/01/2024 7:57 PM EDT Testing was performed using the [employer] Respiratory Pathogen PCR Assay. All results must be correlated with the clinical findings. Results should not be used as the sole basis for diagnosis. False Negative results may occur from the presence of sequence variants in the region targeted by the assay or the presence of inhibitors. Results may be affected by concurrent antiviral/antimicrobial therapy or levels of organisms that are below the limit of detection. us Luan SESAY LAB MICROBIOLOGY - GENERA L ORDERABLES Final Result [facility] [address] [place] [address], * Lactate, with reflex (10/01/2024 6:10 PM EDT) LACTIC ACID 0.5 0.4 - 2.0 mmol/L LAB CHEMISTRY METHOD 10/01/2024 7:31 PM EDT [facility] Blood Venous blood specimen / Unknown Venipuncture / Unknown 10/01/2024 6:10 PM EDT 10/01/2024 7:01 PM EDT Luan Williamson PA LAB BLOOD ORDERABLES Inna l Result Performing Organization Address [facility] de Phone Number [facility] [address] [place] [address], * Prolactin (10/01/2024 6:08 PM EDT) Pathologist [facility] [place] Prolactin 9.80 See Comment ng/mL LAB CHEMISTRY METHOD 10/01/2024 6:57 PM EDT [facility] Comment: Prolactin Reference Ranges (ng/mL) ??Non ?2.2 - ??30.3 ? 8.1 - 347.6 ??Postmenopausal 0.7 - ??31.5 Blood Venous blood specimen / Unknown Venipuncture / Unknown 10/01/2024 6:08 PM EDT 10/01/2024 6:15 PM EDT Adnrew Waldrop DO LAB BLOOD ORDERABLES Final Res ult Performing Organization Address [facility] de Phone Number [facility] [address] [place] [address], * Levetiracetam level (10/01/2024 6:08 PM EDT) Pathologist [facility] [place] Levetiracetam 27.0 3.0 - 60.0 ug/mL 10/04/2024 12:46 PM EDT [facility] Comment: Steady state trough serum or plasma levels following doses of 1000 to 3000 mg/Day: ??3 to 37 ug/mL. The same dosage regimen will typically result in peak levels of 10 to 60 ug/mL, at approximately 1.5 hours post dose. If applicable, any drug confirmation testing reported here was developed and the performance characteristics determined by [facility]. This confirmation testing has not been cleared or approved by the FDA. The laboratory is regulated under CLIA as qualified to perform high-complexity testing. This test is used for patient testing purposes. It should not be regarded as investigational or for research. Test performed at [facility], [address] , [place], [place] ??[address] ? [phone] Francine Murguia MD, PhD - Wood Form Builder Blood Venous blood specimen / Unknown Venipuncture / Unknown 10/01/2024 6:08 PM EDT 10/01/2024 6:15 PM EDT Andrew Waldrop DO LAB BLOOD ORDERABLES Edited Re sult - Final Performing Organization Address [facility]/ZIP Co de Phone Number [facility] [address] [place] [address] * Magnesium (10/01/2024 6:08 PM EDT) Magnesium 1.9 1.9 - 2.6 mg/dL LAB CHEMISTRY METHOD 10/01/2024 6:57 PM EDT [facility] Blood Venous blood specimen / Unknown Venipuncture / Unknown 10/01/2024 6:08 PM EDT 10/01/2024 6:15 PM EDT Andrew Waldrop DO LAB BLOOD ORDERABLES Final Res ult Performing Organization Address City/[facility]/ZIP Co de Phone Number [facility] [address] [place] [address], [place] [phone] from Last 3 Months Insurance MEDICARE MEDICAID - [place] Advance Directives * Full Code - Confirmed (Latest Code Status on File) Date Activated Date Inactivated Comments 10/01/2024 11:36 PM 10/03/2024 1:52 PM This code s tatus was ascertained in the following way: Code status discussion: discussion with patient To update the patient's code status, place a code status order. Do not modify or discontinue any currently active code status orders. Care Teams Phytopathology Teacher Relationship Specialty Start Date End Date Ailin Araujo MD [address] [place] [address], [address] [place] [address] PCP - General Family Medicine 10/01/24
--- OUTSIDE RECORDS SUMMARY | 2024-11-13 14:21 | XMS_ITS | Clinical Summary ---
Author Organization [employer] Address [address] [place] [address] [address] [place] [address] Care Team Providers Care Packing Line Worker Name Role Phone Unavailable Primary Care Provider Unavailabl e Allergies Active Allergy Reactions Criticality Noted Date Comments Sulfamethoxazole-Trimethoprim 2023 Penicillins 12/15/2023 Sulfa Antibiotics 12/15/2023 Medications No known medications Social History Tobacco Use Types Packs/Day Years [...] patient's age to complete this topic Insurance [facility] ST[facility] ADULT
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
--- OUTSIDE RECORDS SUMMARY | 2024-11-13 14:21 | XMS_ITS | Clinical Summary ---
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 Adams at [facility] Immunizations Immunization Administration Dates Next Due H1N1 Inj 04/20/2016 [...] Colorectal Cancer Screening: Sigmoidoscopy 2014 Pneumococcal Vaccine: 50+ Ye ars (3 of 3 - PCV) 04/03/2015 04/03/2014, 02/23/2000 Influenza Vaccine (Season Ended) 2025 04/03/2022, 06/18/2020, 05/06/2003 Pneumococcal Vaccine: Peds ( 0 to 5 Years) and At-Risk Patients (6 to 49 Years) Discontinued 04/03/2014, 02/23/2000 Insurance Medicare Medicaid [place] Care Teams Concrete Plant Laborer Relationship Specialty Start Date End Date Ailin Araujo MD [facility] [place] PCP - General 07/21/20
--- OUTSIDE RECORDS SUMMARY | 2024-11-13 14:21 | XMS_ITS | Encounter Summary ---
Author Organization [employer] Address [address] [place] [address] Care Team Providers Care Medical Imaging Technologist Name Role Phone Unavailable Primary Care Provider Unavailabl e Reason for Visit * Reason Onset Date Comments Dr. Currie denture update 08/07/2024 Encounter Details Date Type Department Care Team (Late st Contact Info) Description 08/07/2024 Telephone [facility] [address] [place] [id number] [address] Mendiola [place] [address] [place] [id number] Currie denture update Social History Tobacco [...]
--- OUTSIDE RECORDS SUMMARY | 2024-11-13 14:21 | XMS_ITS | Encounter Summary ---
Author Organization [facility] Address [address] [place] [address] Phone Care Team Providers Care Line Fixer Name Role Phone Ailin Araujo MD Primary Care Provider [phone] Encounter Details Date Type Department Care Team (Late st Contact Info) Description 04/15/2022 Telephone [facility] [address] [place] [address] Marbin Dowd MD Social History [...] in March due to being Hospital[place]. A follow up is already scheduled for her. documented in this encounter Plan of Treatment Not on file documented as of this encounter Visit Diagnoses Not on filedocumented in this encounter Care Teams Line Fixer Relationship Specialty Start Date End Date Ailin Araujo MD [address] [place] [address] PCP - General 07/21/20 documented as of this encounter
== END 2024-11-13 13:06 | disposition home or self-care (01) ==
LOC: HO.XRAY 13:05
PROVIDERS: PCP Family Medicine; Visit Provider Physical Medicine & Rehabilitation
DX: M25.572 Pain in left ankle and joints of left foot (principal)
CPT/HCPCS: 73600

== ENCOUNTER → 2024-11-13 13:15 | Outpatient (BNV) | payer MEDICARE, MEDICAID, SELFPAY | PROVIDERS: PCP Family Medicine; Visit Provider Radiology Diagnostic Radiology | DX: M77.32 Calcaneal spur, left foot (principal) | CPT/HCPCS: 73600 ==

== ENCOUNTER 2024-11-14 01:05 | Inpatient (IN) | payer MEDICARE, MEDICAID, SELFPAY ==
[2024-11-14] VITALS (14 sets, daily range): BP systolic 81–146; BP diastolic 40–82; PULSE 48–80; RESP 10–18; TEMP 35.7–37.1; O2SAT 93–100; BMI 28.1; BMI 30.1
--- NOTE | 2024-11-14 | ECG_ITS ---
Test Reason : ROCHELLE Blood Pressure : */* mmHG Vent. Rate : 49 BPM Atrial Rate : 49 BPM P-R Int : 160 ms QRS Dur : 78 ms QT Int : 474 ms P-R-T Axes : 26 -5 23 degrees QTcB Int : 428 ms Sinus bradycardia Otherwise normal ECG When compared with ECG of 08-Dec-2023 19:43, No significant change was found Referred By: Generic ED Physician Electronically Signed By: MARITZA TEJADA
--- NOTE | 2024-11-14 | EEG_ITS ---
FINDINGS: The background activity consists of high-voltage 3 Hz delta, occasionally getting up to 4 to 5 Hz with triphasic waves that occurred under frequency of 0.5 Hz in a generalized distribution. At the end of the recording, there is a prolonged paroxysmal high-voltage theta discharge that seems to originate in the left hemisphere and continues with paroxysmal theta at high voltage of 5 Hz in a generalized distribution for about a minute and then goes back into the generalized slowing. No clinical seizure was observed. Patient remains unresponsive throughout the test. Photic stimulation is limited. IMPRESSION: This is an abnormal electroencephalogram due to severe diffuse background slowing with triphasic waves consistent with diffuse encephalopathic process in postictal record. There is one period of prolonged paroxysmal high-voltage theta in a generalized distribution, which appears to be consistent with generalized seizure discharge without any clinical seizures. Clinical correlation is suggested. MD FREDERIC Wray/FROILAN / [id number]
--- NOTE | ~2024-11-14 | XR_ITS ---
CLINICAL HISTORY: alterend mental status, weakness 1 view chest x-ray Comparison: CR/ME/SR - XR CHEST 1V - 09/05/23 16:02 EST Findings: No consolidation or effusion. Heart size is normal. Left internal jugular chest port near the cavoatrial junction again noted. No acute fracture. IMPRESSION: No consolidation. This document has been electronically signed by: Roque Case MD on 11/14/2024 02:11:58
--- NOTE | ~2024-11-14 | CT_ITS ---
CLINICAL HISTORY: altered mental status CT head without contrast Comparison: CT/SR - CT HEAD/BRAIN WO IV CON - 12/08/23 19:13 EDT Findings: No intra-axial mass, midline shift, hydrocephalus, or acute hemorrhage. Mild atrophy like change. The visualized paranasal sinuses and mastoid air cells are normal. Enophthalmos. Orbits otherwise unremarkable. There is no acute fracture. IMPRESSION: 1. No acute intracranial findings. This document has been electronically signed by: Roque Case MD on 11/14/2024 04:24:44
--- NOTE | 2024-11-14 01:22 | ED.GENADULT ---
HPI - General Adult General Chief complaint: Seizure Stated complaint: POSSIBLE FALL/SEIZURE ALTERED/ SHALLOW BREATHS Time Seen by Provider: 11/14/24 01:22 History of Present Illness ED Provider: Brandy RAMSEY narrative: The patient is a 59-year-old female with a very complex past medical history. She lives with her son. Her son is quadriplegic. The patient has a history of multiple episodes of seizure activity. She has been hospitalized multiple times for altered mental status which might be related to prolonged postictal episodes. Additionally the patient has been felt to misuse her prescribed chronic narcotic medications and chronic benzodiazepines. Tonight the patient was brought to the hospital by ambulance after having possibly had a seizure at home. Apparently paramedics were told by the patient's son that the patient had had a seizure. Afterwards the patient seemed confused. She was apparently walking around in circles and then fell onto her buttocks, not striking her head, but lying down on the floor. The patient then was apparently unresponsive in the son called 911. The patient was bradycardic and hypotensive. The son had apparently asked the patient to be brought to [facility] because of the patient's vital signs the paramedics made the decision to bring the patient here instead. Related Data Home Medications ?Medication ?Instructions ?Recorded ?Confirmed ondansetron HCl 8 mg tablet 1 tab PO TID PRN nausea/vomiting 01/29/21 12/09/23 cetirizine 10 mg tablet 10 mg PO DAILY PRN allergies 04/28/23 12/09/23 epinephrine 0.3 mg/0.3 mL 0.3 mg IM ONCE PRN anaphylaxis 04/28/23 12/09/23 injection, auto-injector loperamide 2 mg capsule 2 mg PO Q4H diarrhea 04/28/23 12/09/23 multivitamin 1 tab PO DAILY 04/28/23 12/09/23 omeprazole 20 mg capsule,delayed 20 mg PO DAILY meal grazing 04/28/23 12/09/23 release sumatriptan succinate 100 mg tablet 100 mg PO DAILY PRN Migraine 04/28/23 12/09/23 Headache olanzapine 5 mg tablet 5 mg PO BEDTIME 08/03/23 12/09/23 oxycodone 10 mg tablet 10 mg PO BID PRN Breakthrough Pain 08/03/23 12/09/23 albuterol sulfate 90 mcg/actuation 1 puff inhalation Q4H PRN dyspnea 09/06/23 12/09/23 aerosol inhaler montelukast 10 mg tablet 10 mg PO DAILY 09/06/23 12/09/23 oxycodone 10 mg tablet 10 mg PO TID 12/09/23 12/09/23 apixaban 2.5 mg tablet (Eliquis) 2.5 mg PO BID 02/10/24 cyclobenzaprine 10 mg tablet 10 mg PO TID 02/10/24 escitalopram oxalate 10 mg tablet 10 mg PO DAILY 02/10/24 bupropion HCl 150 mg tablet,12 hr 150 mg PO QAM 09/12/24 sustained-release (Wellbutrin SR) duloxetine 40 mg capsule,delayed 40 mg PO QAM 09/12/24 release levetiracetam 1,000 mg tablet 2,000 mg PO BID 09/12/24 bupropion HCl 300 mg 24 hr tablet, 300 mg PO QAM 11/14/24 11/14/24 extended release acglzxbqli-toqlfnrgjnocw-bsirqvzh cap PO 11/14/24 50 mg-300 mg-40 mg capsule clonazepam 0.5 mg tablet 0.5 mg PO TID PRN anxiety 11/14/24 escitalopram oxalate 5 mg tablet 5 mg PO DAILY 11/14/24 olanzapine 2.5 mg tablet 2.5 mg PO BEDTIME 11/14/24 scopolamine base 1 mg over 3 days 1 patch topical Q3D 11/14/24 transdermal patch Previous Rx's ?Medication ?Instructions ?Recorded bumetanide 0.5 mg tablet 0.5 mg PO BID 90 days #180 tabs 09/12/24 midodrine 5 mg tablet 5 mg PO BID #60 tabs 09/12/24 Allergies Allergy/AdvReac Type Severity Reaction Status Date / Time bee pollen [Bee Stings] Allergy Mild ANAPHYLAXIS Verified 09/12/24 11:02 codeine [Codeine] Allergy Mild ANAPHYLAXIS Verified 11/14/24 01:15 Penicillins Allergy Mild UNKNOWN Verified 11/14/24 01:15 aspirin [ASA] Allergy Unknown Verified 11/14/24 01:15 ciprofloxacin [From Cipro] Allergy Rash Verified 11/14/24 01:15 Iodinated Contrast Media Allergy Hives Verified 11/14/24 01:15 [Contrast Dye] latex Allergy Rash Verified 11/14/24 01:15 macadamia nut Allergy Anaphylaxis Verified 11/14/24 01:15 Sulfa (Sulfonamide Allergy Anaphylaxis Verified 11/14/24 01:15 Antibiotics) sulfamethoxazole Allergy Anaphylaxis Verified 11/14/24 01:15 [From Bactrim] trimethoprim [From Bactrim] Allergy Anaphylaxis Verified 11/14/24 01:15 bee stings Allergy Unknown anaphylaxis Uncoded 11/14/24 01:15 Codeine Phosphate Allergy Unknown stomach Uncoded 11/14/24 01:15 upset Penicillin Allergy Unknown anaphylaxis Uncoded 11/14/24 01:15 Review of Systems Review of Systems: Yes Unobtainable due to mental status PMFSH Past Medical History Medical History (Updated 11/14/24 @ 04:43 by Arun Nava MD) Accidental medication overdose Altered mental state Hypotension Orthostatic hypotension Seizure disorder History of prolonged Q-T interval on ECG Psychogenic nonepileptic seizure CKD (chronic kidney disease) stage 3, GFR 30-59 ml/min COPD (chronic obstructive pulmonary disease) GERD (gastroesophageal reflux disease) Port-A-Cath in place Malabsorption Compression fracture of C3 vertebra Self-catheterizes urinary bladder Neuropathy SIADH (syndrome of inappropriate ADH production) Chronic anemia Enlarged liver Enlarged heart History of atrial fibrillation Polysubstance abuse Von Willebrand disease Factor V deficiency Depression Uterine cancer Breast cancer Migraines Asthma Seizure Surgical History H/O knee surgery Hx of cholecystectomy History of hysterectomy H/O gastric bypass Social History Social History Household Members: Spouse Household Members Other:: One son Housing: Unknown / Unable to assess Housing Other:: House has ramps Unable to assess alcohol history related to: Unknown Alcohol intake: unknown Comment: 1:1 Sitter at bedside Patient Tobacco Use Status: Tobacco use Unknown Tobacco use type: Cigarette Cigarettes Per Day: 2 e-Cigarette/Vaping Use: Never Used Advance Directives: No Advance Directives Information Provided: Yes Do you have a plan to hurt others: No Plan Nutrition Risks: No Nutritional Risk service: No Physical Exam ED Vital Signs: Vital Signs - 24 hr 11/14/24 01:11 11/14/24 01:53 11/14/24 02:41 Temperature 98.4 F Pulse Rate 48 L 49 L 55 Respiratory Rate 17 15 17 Blood Pressure 81/40 L 88/54 L 111/56 L Pulse Oximetry 98 100 100 Oxygen Delivery Method Room Air Room Air Room Air 11/14/24 03:14 11/14/24 03:28 11/14/24 04:09 Temperature 98.4 F Pulse Rate 51 53 52 Respiratory Rate 15 18 18 Blood Pressure 120/82 125/75 107/53 L Pulse Oximetry 100 98 98 Oxygen Delivery Method Room Air Room Air Room Air BMI result Body Mass Index 28.1 Const Other: The patient is a chronically ill-appearing 59-year-old woman who did not respond to verbal stimuli. When I 1st saw her she seemed to be resisting any interactions such as resisting me opening her eyes. She was not speaking. She was sometimes screaming or moaning. HENMT Other: No sign of trauma to the scalp or the face. Face is symmetrical. Airway is clear. Eyes Other: Initially the patient strongly resisted my attempts to open her eyes. This seemed potentially volitional. Later she seemed much more flaccid and I was able to open her eyes without difficulty. She had pupils that were about 3-4 mm in diameter and were equal. Conjunctivae were clear Neck Other: No obvious C-spine step-off. No nuchal rigidity. No adenopathy. Cardio Rate: bradycardic Rhythm: regular rhythm Heart sounds: S1 normal heart sound present and S2 normal heart sound present GI Other: The abdomen was soft and not obviously tender. Skin Other: The skin was dry and unremarkable. Neuro Other: The patient was initially keeping her eyes closed and seemed to possibly be doing this volitionally. She seemed to have symmetrical strength in her extremities. Her face was symmetrical. Tongue midline. At sometime after my initial exam I re-examined the patient and she seemed quite flaccid. I was able to open her eyes bilaterally without difficulty and visualize both of her pupils. Her neck seems supple. She seemed to have symmetrical tone to her extremities. Extrem Other: No deformities to the extremities. No significant peripheral edema. No calf swelling or tenderness or asymmetry. Medications Administered Generic Name Dose Route Start Last Admin Trade Name Freq PRN Reason Stop Dose Admin Apixaban 2.5 mg 11/14/24 09:00 11/14/24 08:03 Apixaban 2.5 Mg Tablet PO Not Given BID [facility] Levetiracetam 1,000 mg in 100 mls @ 400 mls/hr 11/14/24 04:45 11/14/24 05:19 Keppra IV Infused Q12H TAMARA Infusion Sodium Chloride 3 ml 11/14/24 08:00 11/14/24 08:02 0.9 % Sodium Chloride Flush 3 Ml Syringe IVFLUSH 3 ml QSHIFT TAMARA Administration Discontinued Medications Generic Name Dose Route Start Last Admin Trade Name Jorge Alberto PRN Reason Stop Dose Admin Sodium Chloride 1,000 mls @ 999 mls/hr 11/14/24 01:45 11/14/24 02:09 Ns IV 11/14/24 02:45 Infused .Q1H1M TAMARA Infusion Lactated Ringer's 1,000 mls @ 999 mls/hr 11/14/24 02:15 11/14/24 03:36 Lr IV 11/14/24 03:15 Infused .Q1H1M TAMARA Infusion Medical Decision Making Medical Decision Making [facility] Narrative: The patient is a medically complex 59-year-old. She is both medically and behaviorally complex. She has had multiple emergency room visits and hospitalizations over the last few years with a often her flexing presentations. She often presents with a an altered mental status apparently after having had a seizure. It has been unclear whether her seizures are epileptic seizures or functional seizures. She has had several cases of hospitalization for what has been felt to be prolonged postictal phases. Today's presentation is similar to previous presentations. My suspicion for a dangerous process is not very high. The patient had a negative CT of the brain. Other labs, such says her CBC, were unremarkable. Her CBC showed a white count of 6.0, hemoglobin 10.7, and an unremarkable differential. Other labs are largely unremarkable. I suspect this is yet another case of what might be a prolonged postictal phase. She did not seem to have ongoing seizure activity in the emergency room. A head CT is negative. The patient will be admitted to the hospitalist service for further observation and care. Lab Data 11/14/24 05:30 11/14/24 05:30 Labs: Lab Results 11/14/24 11/14/24 11/14/24 Range/Units 01:14 01:37 01:38 WBC 7.2 (4.8-10.8) X10*3/uL RBC 3.55 L (4.20-5.50) X10*6/uL Hgb 11.4 L (12.0-16.0) g/dl Hct 35.3 L (37.0-47.0) % MCV 99.4 H (80.0-98.0) fL MCH 32.1 (27.0-33.0) pg MCHC 32.3 (31.0-35.0) g/dl RDW 12.8 (11.0-16.0) % Plt Count 204 D (160-400) X10*3/uL MPV 10.2 (9.4-12.3) fL Immature Gran % (Auto) 0.1 (0.0-0.4) % Neut % (Auto) 70.7 (45-73) % Lymph % (Auto) 21.5 (20-40) % [place] % (Auto) 7.6 (2-11) % Eos % (Auto) 0.0 (0-4) % Baso % (Auto) 0.1 (0-2) % Lymph # (Auto) 1.6 (1.2-4.9) X10*3/uL [place] # (Auto) 0.6 (0.1-1.2) X10*3/uL Eos # (Auto) 0.0 (0.0-0.4) X10*3/uL Baso # (Auto) 0.0 (0.0-0.2) X10*3/uL Abs Immat Gran (auto) 0.01 (0.00-0.03) X10*3/uL Absolute Neuts (auto) 5.1 (2.0-8.3) x10*3/uL Absolute Nucleated RBC 0.000 (0.0-0.012) X10*3/uL Nucleated RBC % (auto) 0.0 (0.0-0.2) /100WBC PT 10.8 L (10.9-12.4) SEC INR 0.9 (0.9-1.1) VBG pH (7.32-7.43) VBG pCO2 mmHg VBG pO2 mmHg VBG HCO3 (22-26) mmol/L VBG O2 Saturation % VBG Base Excess mmol/L Sodium 146 H (135-145) mmol/L Potassium 5.1 D (3.3-5.1) mmol/L Chloride 113 H (96-108) mmol/L Carbon Dioxide 25 (22-29) mmol/L Anion Gap 13 (12-20) BUN 25 H (9-16) mg/dL Creatinine 1.17 (0.5-1.4) mg/dL Estim Creat Clear Calc 47.3 Estimated GFR 47 POC Glucose 94 (60-115) mg/dL Random Glucose 102 (60-115) mg/dL Calcium 9.0 D (8.4-10.2) mg/dL Magnesium 2.0 (1.6-2.6) mg/dL Total Bilirubin 0.3 (0.0-1.0) mg/dL Direct Bilirubin 0.1 (0.0-0.5) mg/dL AST 30 (5-31) U/L ALT 23 (0-31) U/L Alkaline Phosphatase 150 H (39-117) U/L Total Creatine Kinase 37 (26-140) U/L Troponin I High Sens 3.5 (<3.5-17.0) ng/L C-Reactive Protein 0.37 (< or = 0.50) mg/dL B-Natriuretic Peptide 234 H (<100) pg/mL Total Protein 6.0 L (6.5-8.0) g/dL Albumin 3.8 (3.5-5.0) g/dL Lipase 9 (8-78) U/L Salicylates < 5.0 L (15-30) mg/dL Urine Opiates Screen (Not Detect) Ur Buprenorphine Scrn (Not Detect) ng/mL Ur Oxycodone Screen (Not Detect) ng/mL Urine Methadone Screen (Not Detect) ng/mL Urine Fentanyl Screen (Not Detect) Acetaminophen < 3 (<30) mcg/mL Ur Barbiturates Screen (Not Detect) Ur Phencyclidine Scrn (Not Detect) Ur Amphetamines Screen (Not Detect) U Benzodiazepines Scrn (Not Detect) Urine Cocaine Screen (Not Detect) U Marijuana (THC) Screen (Not Detect) Ethyl Alcohol < 10 mg/dL Influenza Type A (PCR) (Negative) Influenza Type B (PCR) (Negative) RSV RNA Qual (PCR) (Negative) SARS-CoV-2 RNA (RT-PCR) (Negative) 11/14/24 11/14/24 11/14/24 Range/Units 01:39 01:44 02:43 WBC (4.8-10.8) X10*3/uL RBC (4.20-5.50) X10*6/uL Hgb (12.0-16.0) g/dl Hct (37.0-47.0) % MCV (80.0-98.0) fL MCH (27.0-33.0) pg MCHC (31.0-35.0) g/dl RDW (11.0-16.0) % Plt Count (160-400) X10*3/uL MPV (9.4-12.3) fL Immature Gran % (Auto) (0.0-0.4) % Neut % (Auto) (45-73) % Lymph % (Auto) (20-40) % [place] % (Auto) (2-11) % Eos % (Auto) (0-4) % Baso % (Auto) (0-2) % Lymph # (Auto) (1.2-4.9) X10*3/uL [place] # (Auto) (0.1-1.2) X10*3/uL Eos # (Auto) (0.0-0.4) X10*3/uL Baso # (Auto) (0.0-0.2) X10*3/uL Abs Immat Gran (auto) (0.00-0.03) X10*3/uL Absolute Neuts (auto) (2.0-8.3) x10*3/uL Absolute Nucleated RBC (0.0-0.012) X10*3/uL Nucleated RBC % (auto) (0.0-0.2) /100WBC PT (10.9-12.4) SEC INR (0.9-1.1) VBG pH 7.32 (7.32-7.43) VBG pCO2 54 mmHg VBG pO2 26 mmHg VBG HCO3 29 H (22-26) mmol/L VBG O2 Saturation 32.0 % VBG Base Excess 2.3 mmol/L Sodium (135-145) mmol/L Potassium (3.3-5.1) mmol/L Chloride (96-108) mmol/L Carbon Dioxide (22-29) mmol/L Anion Gap (12-20) BUN (9-16) mg/dL Creatinine (0.5-1.4) mg/dL Estim Creat Clear Calc Estimated GFR POC Glucose (60-115) mg/dL Random Glucose (60-115) mg/dL Calcium (8.4-10.2) mg/dL Magnesium (1.6-2.6) mg/dL Total Bilirubin (0.0-1.0) mg/dL Direct Bilirubin (0.0-0.5) mg/dL AST (5-31) U/L ALT (0-31) U/L Alkaline Phosphatase (39-117) U/L Total Creatine Kinase (26-140) U/L Troponin I High Sens (<3.5-17.0) ng/L C-Reactive Protein (< or = 0.50) mg/dL B-Natriuretic Peptide (<100) pg/mL Total Protein (6.5-8.0) g/dL Albumin (3.5-5.0) g/dL Lipase (8-78) U/L Salicylates (15-30) mg/dL Urine Opiates Screen POSITIVE H (Not Detect) Ur Buprenorphine Scrn Not Detected (Not Detect) ng/mL Ur Oxycodone Screen Positive H (Not Detect) ng/mL Urine Methadone Screen Not Detected (Not Detect) ng/mL Urine Fentanyl Screen Not Detected (Not Detect) Acetaminophen (<30) mcg/mL Ur Barbiturates Screen POSITIVE H (Not Detect) Ur Phencyclidine Scrn Not Detected (Not Detect) Ur Amphetamines Screen Not Detected (Not Detect) U Benzodiazepines Scrn Not Detected (Not Detect) Urine Cocaine Screen Not Detected (Not Detect) U Marijuana (THC) Screen Not Detected (Not Detect) Ethyl Alcohol mg/dL Influenza Type A (PCR) NEGATIVE (Negative) Influenza Type B (PCR) NEGATIVE (Negative) RSV RNA Qual (PCR) NEGATIVE (Negative) SARS-CoV-2 RNA (RT-PCR) NEGATIVE (Negative) Discharge Plan Discharge Clinical Impression: Altered mental status, Seizure disorder Patient Disposition: Admitted As Inpatient Interventions: Admission Worksheet (ED) Last Done: 11/14/24 07:10
[2024-11-14 01:24] LABS: Glucose, Whole Blood 94 mg/dL (60-115)
[2024-11-14 01:44] LABS: MANUAL DIFF FLAG NO; Venous Blood Gas Refer to POC result
[2024-11-14 01:45] LABS: Basophils Percent Auto 0.1 % (0-2); Hematocrit 35.3 % (37.0-47.0); Hemoglobin 11.4 g/dl (12.0-16.0); Imm Gran Abs Auto 0.01 X10*3/uL (0.00-0.03); Imm Gran Pct Auto 0.1 % (0.0-0.4); Lymphocytes Absolute Auto 1.6 X10*3/uL (1.2-4.9); Lymphocytes Percent Auto 21.5 % (20-40); Mean Corpuscular HGB Conc 32.3 g/dl (31.0-35.0); Mean Corpuscular Hemoglobin 32.1 pg (27.0-33.0); Mean Corpuscular Volume 99.4 fL (80.0-98.0); Mean Platelet Volume 10.2 fL (9.4-12.3); Monocytes Absolute Auto 0.6 X10*3/uL (0.1-1.2); Monocytes Percent Auto 7.6 % (2-11); Neutrophils Absolute Auto 5.1 x10*3/uL (2.0-8.3); Neutrophils Percent Auto 70.7 % (45-73); Platelet Count 204 X10*3/uL (160-400); Red Blood Count 3.55 X10*6/uL (4.20-5.50); Red Cell Distribution Width 12.8 % (11.0-16.0); White Blood Count 7.2 X10*3/uL (4.8-10.8)
[2024-11-14 01:49] LABS: VBG Base Excess 2.3 mmol/L; VBG HCO3 29 mmol/L (22-26); VBG pCO2 54 mmHg; VBG pH 7.32 (7.32-7.43); VBG pO2 26 mmHg
[2024-11-14] MEDS: 0.9 % Sodium Chloride 1,000 ML 999 ML IV (01:50)
[2024-11-14 01:51] LABS: INTERNATIONAL NORM RATIO 0.9 (0.9-1.1); Prothrombin Time 10.8 SEC (10.9-12.4)
--- NOTE | 2024-11-14 01:51 | PC.NURSE ---
pt biba from home, alert but only to painful stimuli. per ems pt son states pt had a question of seizure episode, reports she laid down on the couch and when she got up she had altered mental status, was walking around in circles and fell on butt. pt was in collar on arrival, removed it at bedside. pt only shouting to painful stimuli. pt changed into gown. 22g placed in left ac, labs obtained, fluids administering. pt sinus radha on tele 48-50bpm. aware of bp and at bedside. seziure precautions on place.
[2024-11-14 02:04] LABS: Alanine Aminotransferase 23 U/L (0-31); Albumin Level 3.8 g/dL (3.5-5.0); Anion Gap 13 (12-20); Aspartate Amino Transferase 30 U/L (5-31); Bilirubin Direct 0.1 mg/dL (0.0-0.5); Bilirubin Total 0.3 mg/dL (0.0-1.0); Blood Urea Nitrogen 25 mg/dL (9-16); C Reactive Protein 0.37 mg/dL (< or = 0.50); Carbon Dioxide 25 mmol/L (22-29); Chloride 113 mmol/L (96-108); Creatinine Clr Calc Pharmacy 47.3; Estimated Glomerular Filt Rate 47; Ethanol < 10 mg/dL; Glucose Random 102 mg/dL (60-115); Lipase 9 U/L (8-78); Potassium 5.1 mmol/L (3.3-5.1); Sodium 146 mmol/L (135-145)
[2024-11-14 02:06] LABS: Troponin-I High Sensitivity 3.5 ng/L (<3.5-17.0)
[2024-11-14 02:06] LABS: B Type Natriuretic Peptide 234 pg/mL (<100)
--- NOTE | 2024-11-14 02:09 | PC.NURSE ---
due to pt labs, stop NS and hang LR at this time.
[2024-11-14] MEDS: Lactated Ringers 1,000 ML 999 ML IV (02:11)
[2024-11-14 02:14] LABS: Alkaline Phosphatase 150 U/L (39-117)
--- NOTE | 2024-11-14 02:30 | PC.NURSE ---
pt iv fluids placed on pressure bag at this time, at bedside.
[2024-11-14 02:40] LABS: Acetaminophen LAB < 3 mcg/mL (<30); Salicylate < 5.0 mg/dL (15-30)
--- NOTE | 2024-11-14 02:43 | PC.NURSE ---
pt straight cath per provider order at this time, pt only able to scream out but is still not speaking in sentences. sample obtained. 800ml dark yellow urine voided.
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
--- OUTSIDE RECORDS SUMMARY | 2024-11-14 02:48 | XMS_ITS | Clinical Summary ---
Author Organization [employer] Address [address] [place] [address] [address] [place] [address] Care Team Providers Care Sales Clerk Name Role Phone Unavailable Primary Care Provider [...] patient's age to complete this topic Insurance [facility] MEDICA[facility] STAND ADULT
--- OUTSIDE RECORDS SUMMARY | 2024-11-14 02:48 | XMS_ITS | Encounter Summary ---
Author Organization [facility] Address [address] [place] [address] Phone Care Team Providers Care Manager Air Name Role Phone Ailin Araujo MD Primary Care Provider [phone] Encounter Details Date Type Department Care Team (Late st Contact Info) Description 04/15/2022 Telephone [facility] [address] [place] [address] Marbin Dowd MD Social History [...] in March due to being Hospitalized in [place]. A follow up is already scheduled for her. documented in this encounter Plan of Treatment Not on file documented as of this encounter Visit Diagnoses Not on filedocumented in this encounter Care Teams Manager Air Relationship Specialty Start Date End Date Ailin Araujo MD [address] [place] [address] PCP - General 07/21/20 documented as of this encounter
--- OUTSIDE RECORDS SUMMARY | 2024-11-14 02:48 | XMS_ITS | Clinical Summary ---
Author Organization [facility] Address [address] [facility] [address] [place] [address] Phone Care Team Providers Care Curb Attendant Name Role Phone Ailin Araujo MD Primary Care Provider [phone] Allergies Active Allergy Reactions Criticality Noted Date [...] day 2 Active epoetin charlie (EPOGEN,PROCRIT ) 72673 UNIT/ML injectionIndica tions:Anemia due to Renal Failure [...] 11/13/2020 Overview (11/13/2020): F/u Dr. Adams at [facility] Immunizations Immunization Administration Dates Next Due H1N1 [...] Medicaid [place] Care Teams Curb Attendant Relationship Specialty Start Date End Date Ailin Araujo MD [facility] [place] [place] PCP - General 07/21/20
--- OUTSIDE RECORDS SUMMARY | 2024-11-14 02:48 | XMS_ITS | Encounter Summary ---
Author Organization [employer] Address [address] [facility] [address] [facility] [address] [place] [address] Care Team Providers Care Solar Energy Advisor Name Role Phone Unavailable Primary Care Provider Unavailabl e Reason for Visit * Reason Onset Date Comments Dr. Currie denture update 08/07/2024 Encounter Details Date Type Department Care Team (Late st Contact Info) Description 08/07/2024 Telephone [facility] DENTAL [address] [place] [id number] [address] Mendiola BDS [address] [place] [phone] Currie denture update Social History Tobacco [...]
[2024-11-14 03:02] LABS: Amphetamine Screen Urine Not Detected (Not Detect); Barbiturates, Urine POSITIVE (Not Detect); Benzodiazepines Screen Urine Not Detected (Not Detect); Buprenorphine Scr Not Detected (Not Detect); Cannabinoid Screen Urine Not Detected (Not Detect); Cocaine Screen Urine Not Detected (Not Detect); Fentanyl, urine Not Detected (Not Detect); Methadone Screen, Urine Not Detected (Not Detect); Opiate Screen Urine POSITIVE (Not Detect); Oxycodone Screen Urine Positive (Not Detect); Phencyclidine Screen Urine Not Detected (Not Detect)
--- NOTE | 2024-11-14 04:31 | P.HPHOSP_ITS ---
History of Present Illness Date of Service: 11/14/24 Attending physician on admission: Ambar Charles Chief Complaint: seizure like activity Patient is a 59-year-old female with a past medical history significant for seizures versus pseudoseizures, CKD 3A, orthostatic hypotension, MDD, complex PTSD, history AFib, who presented to the ED via EMS after her son witnessed a possible seizure. He reported seizure-like activity followed by strange behavior. The patient was walking in circles and fell on her buttocks. She did not strike her head however she was hypotensive and bradycardic when EMS arrived. The patient has been nonresponsive aside from with painful stimuli. Patient is unable to give a history at this time therefore the history is obtained by the ED provider. Per ED note the pt has a very complex past medical history. She lives with her son. Her son is quadriplegic. The patient has a history of multiple episodes of seizure activity. She has been hospitalized multiple times for altered mental status which might be related to prolonged postictal episodes. Additionally the patient has been felt to misuse her prescribed chronic narcotic medications and chronic benzodiazepines. Review of Systems 2 Review of Systems: Yes Unobtainable due to mental condition [facility] Medical History (Updated 11/14/24 @ 04:43 by Arun Nava MD) Accidental medication overdose Altered mental state Hypotension Orthostatic hypotension Seizure disorder History of prolonged Q-T interval on ECG Psychogenic nonepileptic seizure CKD (chronic kidney disease) stage 3, GFR 30-59 ml/min COPD (chronic obstructive pulmonary disease) GERD (gastroesophageal reflux disease) Port-A-Cath in place Malabsorption Compression fracture of C3 vertebra Self-catheterizes urinary bladder Neuropathy SIADH (syndrome of inappropriate ADH production) Chronic anemia Enlarged liver Enlarged heart History of atrial fibrillation Polysubstance abuse Von Willebrand disease Factor V deficiency Depression Uterine cancer Breast cancer Migraines Asthma Seizure Functional capacity: independent ambulation Surgical History H/O knee surgery Hx of cholecystectomy History of hysterectomy H/O gastric bypass Social History Household Members: Spouse Household Members Other:: One son Housing: Unknown / Unable to assess Housing Other:: House has ramps Unable to assess alcohol history related to: Unknown Alcohol intake: unknown Comment: 1:1 Sitter at bedside Patient Tobacco Use Status: Tobacco use Unknown Tobacco use type: Cigarette Cigarettes Per Day: 2 e-Cigarette/Vaping Use: Never Used Advance Directives: No Advance Directives Information Provided: Yes Do you have a plan to hurt others: No Plan service: No Meds Allergies Allergy/AdvReac Type Severity Reaction Status Date / Time bee pollen [Bee Stings] Allergy Mild ANAPHYLAXIS Verified 09/12/24 11:02 codeine [Codeine] Allergy Mild ANAPHYLAXIS Verified 11/14/24 01:15 Penicillins Allergy Mild UNKNOWN Verified 11/14/24 01:15 aspirin [ASA] Allergy Unknown Verified 11/14/24 01:15 ciprofloxacin [From Cipro] Allergy Rash Verified 11/14/24 01:15 Iodinated Contrast Media Allergy Hives Verified 11/14/24 01:15 [Contrast Dye] latex Allergy Rash Verified 11/14/24 01:15 macadamia nut Allergy Anaphylaxis Verified 11/14/24 01:15 Sulfa (Sulfonamide Allergy Anaphylaxis Verified 11/14/24 01:15 Antibiotics) sulfamethoxazole Allergy Anaphylaxis Verified 11/14/24 01:15 [From Bactrim] trimethoprim [From Bactrim] Allergy Anaphylaxis Verified 11/14/24 01:15 bee stings Allergy Unknown anaphylaxis Uncoded 11/14/24 01:15 Codeine Phosphate Allergy Unknown stomach Uncoded 11/14/24 01:15 upset Penicillin Allergy Unknown anaphylaxis Uncoded 11/14/24 01:15 Home Medications ?Medication ?Instructions ?Recorded ?Confirmed ?Last Taken ?Type ondansetron HCl 8 mg tablet 1 tab PO TID PRN nausea/vomiting 01/29/21 12/09/23 04/28/23 06:30 History cetirizine 10 mg tablet 10 mg PO DAILY PRN allergies 04/28/23 12/09/23 04/28/23 06:30 History epinephrine 0.3 mg/0.3 mL 0.3 mg IM ONCE PRN anaphylaxis 04/28/23 12/09/23 Unknown History injection, auto-injector loperamide 2 mg capsule 2 mg PO Q4H diarrhea 04/28/23 12/09/23 04/28/23 06:30 History multivitamin 1 tab PO DAILY 04/28/23 12/09/23 04/28/23 06:30 History omeprazole 20 mg capsule,delayed 20 mg PO DAILY meal grazing 04/28/23 12/09/23 04/28/23 06:30 History release sumatriptan succinate 100 mg tablet 100 mg PO DAILY PRN Migraine 04/28/23 12/09/23 Unknown History Headache clonazepam 0.5 mg tablet 0.5 mg PO BID PRN anxiety 06/01/23 12/09/23 Unknown History olanzapine 5 mg tablet 5 mg PO BEDTIME 08/03/23 12/09/23 Unknown History oxycodone 10 mg tablet 10 mg PO BID PRN Breakthrough Pain 08/03/23 12/09/23 Unknown History albuterol sulfate 90 mcg/actuation 1 puff inhalation Q4H PRN dyspnea 09/06/23 12/09/23 Unknown History aerosol inhaler montelukast 10 mg tablet 10 mg PO DAILY 09/06/23 12/09/23 Unknown History olanzapine 2.5 mg tablet 2.5 mg PO TID 09/06/23 12/09/23 Unknown History oxycodone 10 mg tablet 10 mg PO TID 12/09/23 12/09/23 Unknown History apixaban 2.5 mg tablet (Eliquis) 2.5 mg PO BID 02/10/24 Unknown History cyclobenzaprine 10 mg tablet 10 mg PO TID 02/10/24 Unknown History escitalopram oxalate 10 mg tablet 10 mg PO DAILY 02/10/24 Unknown History bupropion HCl 150 mg tablet,12 hr 150 mg PO QAM 09/12/24 Unknown History sustained-release (Wellbutrin SR) duloxetine 40 mg capsule,delayed 40 mg PO QAM 09/12/24 Unknown History release levetiracetam 1,000 mg tablet 2,000 mg PO BID 09/12/24 Unknown History Physical Exam 2 Vital Signs and Narrative: Vital Signs: Last Vital Signs Temp 98.4 F 11/14/24 04:09 Pulse 52 11/14/24 04:09 Resp 18 11/14/24 04:09 BP 107/53 L 11/14/24 04:09 Pulse Ox 98 11/14/24 04:09 O2 Del Method Room Air 11/14/24 04:09 BMI result Body Mass Index 28.1 General: only responsive to painful stimuli, no acute distress, sleeping Resp: CTA bilaterally CVS: S1, S2, RRR GI: +BS, NT, no distention Skin: Warm, dry Neuro: PERRL, moving all extremities. Extremities: No LE edema Psych: unable to assess Results Labs 11/14/24 01:38 11/14/24 01:38 Labs: Laboratory Results - last 24 hr 11/14/24 11/14/24 11/14/24 01:14 01:37 01:38 MCV 99.4 H MCH 32.1 MCHC 32.3 RDW 12.8 Plt Count 204 D MPV 10.2 Immature Gran % (Auto) 0.1 Neut % (Auto) 70.7 Lymph % (Auto) 21.5 Sierra % (Auto) 7.6 Eos % (Auto) 0.0 Baso % (Auto) 0.1 Lymph # (Auto) 1.6 Sierra # (Auto) 0.6 Eos # (Auto) 0.0 Baso # (Auto) 0.0 Abs Immat Gran (auto) 0.01 Absolute Neuts (auto) 5.1 Absolute Nucleated RBC 0.000 Nucleated RBC % (auto) 0.0 PT 10.8 L INR 0.9 VBG pH VBG pCO2 VBG pO2 VBG HCO3 VBG O2 Saturation VBG Base Excess Anion Gap 13 Estim Creat Clear Calc 47.3 Estimated GFR 47 POC Glucose 94 Random Glucose 102 Calcium 9.0 D Magnesium 2.0 Total Bilirubin 0.3 Direct Bilirubin 0.1 AST 30 ALT 23 Alkaline Phosphatase 150 H Total Creatine Kinase 37 C-Reactive Protein 0.37 B-Natriuretic Peptide 234 H Total Protein 6.0 L Albumin 3.8 Lipase 9 Salicylates < 5.0 L Urine Opiates Screen Ur Buprenorphine Scrn Ur Oxycodone Screen Urine Methadone Screen Urine Fentanyl Screen Acetaminophen < 3 Ur Barbiturates Screen Ur Phencyclidine Scrn Ur Amphetamines Screen U Benzodiazepines Scrn Urine Cocaine Screen U Marijuana (THC) Screen Ethyl Alcohol < 10 11/14/24 11/14/24 01:44 02:43 MCV MCH MCHC RDW Plt Count MPV Immature Gran % (Auto) Neut % (Auto) Lymph % (Auto) Sierra % (Auto) Eos % (Auto) Baso % (Auto) Lymph # (Auto) Sierra # (Auto) Eos # (Auto) Baso # (Auto) Abs Immat Gran (auto) Absolute Neuts (auto) Absolute Nucleated RBC Nucleated RBC % (auto) PT INR VBG pH 7.32 VBG pCO2 54 VBG pO2 26 VBG HCO3 29 H VBG O2 Saturation 32.0 VBG Base Excess 2.3 Anion Gap Estim Creat Clear Calc Estimated GFR POC Glucose Random Glucose Calcium Magnesium Total Bilirubin Direct Bilirubin AST ALT Alkaline Phosphatase Total Creatine Kinase C-Reactive Protein B-Natriuretic Peptide Total Protein Albumin Lipase Salicylates Urine Opiates Screen POSITIVE H Ur Buprenorphine Scrn Not Detected Ur Oxycodone Screen Positive H Urine Methadone Screen Not Detected Urine Fentanyl Screen Not Detected Acetaminophen Ur Barbiturates Screen POSITIVE H Ur Phencyclidine Scrn Not Detected Ur Amphetamines Screen Not Detected U Benzodiazepines Scrn Not Detected Urine Cocaine Screen Not Detected U Marijuana (THC) Screen Not Detected Ethyl Alcohol Assessment and Plan (1) Encephalopathy acute: Status: Acute (2) Seizure: Status: Acute (3) Hyperchloremic metabolic acidosis: Status: Acute (4) CKD stage 3a, GFR 45-59 ml/min: Status: Acute Plan Patient is a 59-year-old female with a past medical history significant for seizures versus pseudoseizures, CKD 3A, orthostatic hypotension, MDD, complex PTSD, history AFib, who presented to the ED via EMS after her son witnessed a possible seizure.Patient is unable to give a history at this time therefore the history is obtained by the ED provider. She has been hospitalized multiple times for altered mental status which might be related to prolonged postictal episodes. Encephalopathy ?breakthrough seizure vs pseudoseizure - no leukocytosis, no fever, no infection identified - chest x-ray negative - head CT negative - EKG with sinus bradycardia - UTox positive for opiates, oxycodone, barbiturates - Keppra level pending - given 2L IVF in ED - contiune keppra 1000mg BID - neuro consult - EEG - admit for observation hyperchloremic metabolic acidosis - secondary to seizure vs psuedoseizure - IVF as above - monitor BMP hx a fib - EKG without a fib - continue eliquis CKD 3a - Cr at baseline hx orthostatic hypotension - hold BP meds, BP currently low - IVF as above - continue midodrine 5mg BID MDD/complex PTSD - continue home meds presumed full code, discuss with pt when alert VTE prophy: eliquis Quality Stroke Does the patient have a stroke diagnosis?: No VTE Prior VTE?: No VTE Risk Level:: Medical - moderate - high VTE Device Contraindication: Treatment Not Indicated VTE Drug Contraindication: N/A - Med Ordered
[2024-11-14] MEDS: levETIRAcetam in NaCl (iso-os) 1,000 MG/100 ML PIGGYBACK 400 MG IV ×2 (05:04→17:16)
[2024-11-14 06:10] LABS: MANUAL DIFF FLAG NO
[2024-11-14 06:16] LABS: Hematocrit 33.1 % (37.0-47.0); Hemoglobin 10.7 g/dl (12.0-16.0); Imm Gran Abs Auto 0.02 X10*3/uL (0.00-0.03); Imm Gran Pct Auto 0.3 % (0.0-0.4); Lymphocytes Absolute Auto 1.4 X10*3/uL (1.2-4.9); Lymphocytes Percent Auto 23.5 % (20-40); Mean Corpuscular HGB Conc 32.3 g/dl (31.0-35.0); Mean Corpuscular Hemoglobin 32.2 pg (27.0-33.0); Mean Corpuscular Volume 99.7 fL (80.0-98.0); Mean Platelet Volume 10.6 fL (9.4-12.3); Monocytes Absolute Auto 0.5 X10*3/uL (0.1-1.2); Monocytes Percent Auto 8.2 % (2-11); Neutrophils Absolute Auto 4.1 x10*3/uL (2.0-8.3); Platelet Count 174 X10*3/uL (160-400); Red Blood Count 3.32 X10*6/uL (4.20-5.50); Red Cell Distribution Width 12.8 % (11.0-16.0)
[2024-11-14 06:27] LABS: Influenza A PCR NEGATIVE (Negative); Influenza B PCR NEGATIVE (Negative); Resp Syncy Virus RNA Qual PCR NEGATIVE (Negative); SARS COV2 PCR INHOUSE NEGATIVE (Negative)
[2024-11-14 06:40] LABS: Anion Gap 12 (12-20); Blood Urea Nitrogen 24 mg/dL (9-16); Calcium 8.6 mg/dL (8.4-10.2); Carbon Dioxide 21 mmol/L (22-29); Chloride 117 mmol/L (96-108); Creatinine Clr Calc Pharmacy 57.1; Estimated Glomerular Filt Rate 59; Glucose Random 88 mg/dL (60-115); Sodium 146 mmol/L (135-145)
[2024-11-14] MEDS: 0.9 % Sodium Chloride Flush 3 ML SYRINGE IVFLUSH ×2 (08:02→17:16)
--- NOTE | 2024-11-14 08:48 | P.CNNE_ITS ---
History of Present Illness Data of Consult Service Date: 11/14/24 Primary Care Provider: Unknown Physician HPI Reason for consult: Possible Sz and abnormal behavior This is a 59-year-old female with a h/o psych disorder, possible seizures versus pseudoseizures, currently on Keppra 2gm bid, , CKD 3A, orthostatic hypotension, MDD, complex PTSD, AFib, who presented to the ED via EMS after her son witnessed a possible seizure. She lives with her son who is quadriplegic. He reported seizure-like activity followed by strange behavior. The patient was walking in circles and fell on her buttocks. She did not strike her head however she was hypotensive and bradycardic when EMS arrived. The patient has been nonresponsive aside from with painful stimuli. Patient is unable to give a history at this time therefore the history is obtained by the ED provider. She has a history of multiple episodes of seizure activity. She has been hospitalized multiple times for altered mental status which might be related to prolonged postictal episodes or psychogenic. Additionally the patient has been felt to misuse her prescribed chronic narcotic medications and chronic benzodiazepines. [facility] Past Medical History Medical History (Updated 11/14/24 @ 04:43 by Arun Nava MD) Accidental medication overdose Altered mental state Hypotension Orthostatic hypotension Seizure disorder History of prolonged Q-T interval on ECG Psychogenic nonepileptic seizure CKD (chronic kidney disease) stage 3, GFR 30-59 ml/min COPD (chronic obstructive pulmonary disease) GERD (gastroesophageal reflux disease) Port-A-Cath in place Malabsorption Compression fracture of C3 vertebra Self-catheterizes urinary bladder Neuropathy SIADH (syndrome of inappropriate ADH production) Chronic anemia Enlarged liver Enlarged heart History of atrial fibrillation Polysubstance abuse Von Willebrand disease Factor V deficiency Depression Uterine cancer Breast cancer Migraines Asthma Seizure Surgical History Surgical History H/O knee surgery Hx of cholecystectomy History of hysterectomy H/O gastric bypass Social History Social History Household Members: Spouse Household Members Other:: One son Housing: Unknown / Unable to assess Housing Other:: House has ramps Unable to assess alcohol history related to: Unknown Alcohol intake: unknown Comment: 1:1 Sitter at bedside Patient Tobacco Use Status: Tobacco use Unknown Tobacco use type: Cigarette Cigarettes Per Day: 2 e-Cigarette/Vaping Use: Never Used Advance Directives: No Advance Directives Information Provided: Yes Do you have a plan to hurt others: No Plan Nutrition Risks: No Nutritional Risk service: No Meds Allergies Allergy/AdvReac Type Severity Reaction Status Date / Time bee pollen [Bee Stings] Allergy Mild ANAPHYLAXIS Verified 09/12/24 11:02 codeine [Codeine] Allergy Mild ANAPHYLAXIS Verified 11/14/24 01:15 Penicillins Allergy Mild UNKNOWN Verified 11/14/24 01:15 aspirin [ASA] Allergy Unknown Verified 11/14/24 01:15 ciprofloxacin [From Cipro] Allergy Rash Verified 11/14/24 01:15 Iodinated Contrast Media Allergy Hives Verified 11/14/24 01:15 [Contrast Dye] latex Allergy Rash Verified 11/14/24 01:15 macadamia nut Allergy Anaphylaxis Verified 11/14/24 01:15 Sulfa (Sulfonamide Allergy Anaphylaxis Verified 11/14/24 01:15 Antibiotics) sulfamethoxazole Allergy Anaphylaxis Verified 11/14/24 01:15 [From Bactrim] trimethoprim [From Bactrim] Allergy Anaphylaxis Verified 11/14/24 01:15 bee stings Allergy Unknown anaphylaxis Uncoded 11/14/24 01:15 Codeine Phosphate Allergy Unknown stomach Uncoded 11/14/24 01:15 upset Penicillin Allergy Unknown anaphylaxis Uncoded 11/14/24 01:15 Active Medications: Current Medications Acetaminophen (Acetaminophen 325 Mg Tablet) 975 mg PO Q6H PRN PRN Reason: Pain, Mild 1-3,fever,headache Apixaban (Apixaban 2.5 Mg Tablet) 2.5 mg PO BID [facility] Last Admin: 11/14/24 08:03 Dose: Not Given Calcium Carbonate (Calcium Carbonate 750 Mg Tab.Chew) 750 mg PO Q4H PRN PRN Reason: Heartburn Levetiracetam (Keppra) 1,000 mg in 100 mls @ 400 mls/hr IV Q12H [facility] Last Infusion: 11/14/24 05:19 Dose: Infused Magnesium Hydroxide (Milk Of Magnesia 30 Ml Oral.Susp) 30 ml PO DAILY PRN PRN Reason: Constipation Melatonin (Melatonin 3 Mg Tablet) 6 mg PO BEDTIME PRN PRN Reason: Insomnia Ondansetron HCl (Ondansetron Hcl 4 Mg/2 Ml Vial) 4 mg IVPUSH Q8H PRN PRN Reason: Nausea and Vomiting Sodium Chloride (0.9 % Sodium Chloride Flush 3 Ml Syringe) [facility] Last Admin: 11/14/24 08:02 Dose: 3 ml Home Medications ?Medication ?Instructions ?Recorded ?Confirmed ?Last Taken ?Type ondansetron HCl 8 mg tablet 1 tab PO TID PRN nausea/vomiting 01/29/21 12/09/23 04/28/23 06:30 History cetirizine 10 mg tablet 10 mg PO DAILY PRN allergies 04/28/23 12/09/23 04/28/23 06:30 History epinephrine 0.3 mg/0.3 mL 0.3 mg IM ONCE PRN anaphylaxis 04/28/23 12/09/23 Unknown History injection, auto-injector loperamide 2 mg capsule 2 mg PO Q4H diarrhea 04/28/23 12/09/23 04/28/23 06:30 History multivitamin 1 tab PO DAILY 04/28/23 12/09/23 04/28/23 06:30 History omeprazole 20 mg capsule,delayed 20 mg PO DAILY meal grazing 04/28/23 12/09/23 04/28/23 06:30 History release sumatriptan succinate 100 mg tablet 100 mg PO DAILY PRN Migraine 04/28/23 12/09/23 Unknown History Headache olanzapine 5 mg tablet 5 mg PO BEDTIME 08/03/23 12/09/23 Unknown History oxycodone 10 mg tablet 10 mg PO BID PRN Breakthrough Pain 08/03/23 12/09/23 Unknown History albuterol sulfate 90 mcg/actuation 1 puff inhalation Q4H PRN dyspnea 09/06/23 12/09/23 Unknown History aerosol inhaler montelukast 10 mg tablet 10 mg PO DAILY 09/06/23 12/09/23 Unknown History oxycodone 10 mg tablet 10 mg PO TID 12/09/23 12/09/23 Unknown History apixaban 2.5 mg tablet (Eliquis) 2.5 mg PO BID 02/10/24 Unknown History cyclobenzaprine 10 mg tablet 10 mg PO TID 02/10/24 Unknown History escitalopram oxalate 10 mg tablet 10 mg PO DAILY 02/10/24 Unknown History bupropion HCl 150 mg tablet,12 hr 150 mg PO QAM 09/12/24 Unknown History sustained-release (Wellbutrin SR) duloxetine 40 mg capsule,delayed 40 mg PO QAM 09/12/24 Unknown History release levetiracetam 1,000 mg tablet 2,000 mg PO BID 09/12/24 Unknown History bupropion HCl 300 mg 24 hr tablet, 300 mg PO QAM 11/14/24 11/14/24 Unknown History extended release [id number] cap PO 11/14/24 Unknown History 50 mg-300 mg-40 mg capsule clonazepam 0.5 mg tablet 0.5 mg PO TID PRN anxiety 11/14/24 Unknown History escitalopram oxalate 5 mg tablet 5 mg PO DAILY 11/14/24 Unknown History olanzapine 2.5 mg tablet 2.5 mg PO BEDTIME 11/14/24 Unknown History scopolamine base 1 mg over 3 days 1 patch topical Q3D 11/14/24 Unknown History transdermal patch Physical Exam 2 Vital Signs: Vital Signs: Last Vital Signs Temp 98.5 F 11/14/24 06:11 Pulse 50 11/14/24 08:04 Resp 14 11/14/24 08:04 BP 112/60 11/14/24 08:04 Pulse Ox 98 11/14/24 08:04 O2 Del Method Room Air 11/14/24 08:04 BMI result Body Mass Index 28.1 Neuro: Other: Limited non focalexam Results Labs 11/14/24 05:30 11/14/24 05:30 Labs: Short CBC 11/14/24 11/14/24 Range/Units 01:38 05:30 WBC 7.2 6.0 (4.8-10.8) X10*3/uL Hgb 11.4 L 10.7 L (12.0-16.0) g/dl Hct 35.3 L 33.1 L (37.0-47.0) % Plt Count 204 D 174 (160-400) X10*3/uL BMP 11/14/24 11/14/24 01:38 05:30 Sodium 146 H 146 H Potassium 5.1 D 4.0 D Chloride 113 H 117 H Carbon Dioxide 25 21 L BUN 25 H 24 H Creatinine 1.17 0.97 Calcium 9.0 D 8.6 Cardiac Enzymes 11/14/24 Range/Units 01:38 Total Creatine Kinase 37 (26-140) U/L Liver Function 11/14/24 Range/Units 01:38 Total Bilirubin 0.3 (0.0-1.0) mg/dL Direct Bilirubin 0.1 (0.0-0.5) mg/dL AST 30 (5-31) U/L ALT 23 (0-31) U/L Alkaline Phosphatase 150 H (39-117) U/L Albumin 3.8 (3.5-5.0) g/dL Assessment and Plan (1) Seizure disorder: Status: Acute Sz vs PNES Recom.: EEG today. Check keppra level for compliance (2) Altered mental status: Status: Acute (3) Orthostatic hypotension: Status: Acute (4) Major depressive disorder, recurrent severe without psychotic features: Status: Acute Procedures Date of Service Date of Service: 11/14/24
--- NOTE | 2024-11-14 10:00 | PC.NURSE ---
Bladder Scanned patient and 437ML Noted in bladder. MD siu made aware. orders for straight cath placed. Pt attempted to be straight cathed and pt was extremely resistant with keeping legs clenched closed. unable to preform sterile or visualize area appropriately. Pt moaning and yelling out but will not follow commands, open eyes or answer questions. Pt pushing RN hands away from tiago area but seems in discomfort when pressing on bladder. put on purwik for time and will continue to monitor. made aware.
--- NOTE | 2024-11-14 10:08 | PC.NURSE ---
patient transported to EEG testing
--- NOTE | 2024-11-14 12:50 | P.PNIM_ITS ---
Subjective Subjective Date of Service: 11/14/24 Review of Systems Review of Systems: Yes Unobtainable due to mental condition Physical Exam 2 Vital Signs: Vital Signs: Last Vital Signs Temp 97.9 F 11/14/24 12:14 Pulse 48 L 11/14/24 12:05 Resp 10 L 11/14/24 12:05 BP 116/70 11/14/24 12:05 Pulse Ox 100 11/14/24 12:05 O2 Del Method Room Air 11/14/24 12:05 BMI result Body Mass Index 28.1 Responds to painful stimuli only, inconsistent responses, actively resisting Marin catheter placement Objective Data Active Medications Acetaminophen (Acetaminophen 325 Mg Tablet) 975 mg PO Q6H PRN PRN Reason: Pain, Mild 1-3,fever,headache Apixaban (Apixaban 2.5 Mg Tablet) 2.5 mg PO BID [facility] Last Admin: 11/14/24 08:03 Dose: Not Given Documented By: ABDIAS Non-Admin Reason: NPO Comments: failed swallow, pt unable to safely swallow at this time. Calcium Carbonate (Calcium Carbonate 750 Mg Tab.Chew) 750 mg PO Q4H PRN PRN Reason: Heartburn Levetiracetam (Keppra) 1,000 mg in 100 mls @ 400 mls/hr IV Q12H [facility] Last Infusion: 11/14/24 05:19 Dose: Infused Documented By: ROC Magnesium Hydroxide (Milk Of Magnesia 30 Ml Oral.Susp) 30 ml PO DAILY PRN PRN Reason: Constipation Melatonin (Melatonin 3 Mg Tablet) 6 mg PO BEDTIME PRN PRN Reason: Insomnia Ondansetron HCl (Ondansetron Hcl 4 Mg/2 Ml Vial) 4 mg IVPUSH Q8H PRN PRN Reason: Nausea and Vomiting Sodium Chloride (0.9 % Sodium Chloride Flush 3 Ml Syringe) 3 ml IVFLUSH QSHIFT [facility] Last Admin: 11/14/24 08:02 Dose: 3 ml Documented By: ABDIAS Labs 11/14/24 05:30 11/14/24 05:30 Labs: Laboratory Results - last 24 hr 11/14/24 11/14/24 11/14/24 01:14 01:37 01:38 MCV 99.4 H MCH 32.1 MCHC 32.3 RDW 12.8 Plt Count 204 D MPV 10.2 Immature Gran % (Auto) 0.1 Neut % (Auto) 70.7 Lymph % (Auto) 21.5 [place] % (Auto) 7.6 Eos % (Auto) 0.0 Baso % (Auto) 0.1 Lymph # (Auto) 1.6 [place] # (Auto) 0.6 Eos # (Auto) 0.0 Baso # (Auto) 0.0 Abs Immat Gran (auto) 0.01 Absolute Neuts (auto) 5.1 Absolute Nucleated RBC 0.000 Nucleated RBC % (auto) 0.0 PT 10.8 L INR 0.9 VBG pH VBG pCO2 VBG pO2 VBG HCO3 VBG O2 Saturation VBG Base Excess Anion Gap 13 Estim Creat Clear Calc 47.3 Estimated GFR 47 POC Glucose 94 Random Glucose 102 Calcium 9.0 D Magnesium 2.0 Total Bilirubin 0.3 Direct Bilirubin 0.1 AST 30 ALT 23 Alkaline Phosphatase 150 H Total Creatine Kinase 37 C-Reactive Protein 0.37 B-Natriuretic Peptide 234 H Total Protein 6.0 L Albumin 3.8 Lipase 9 Salicylates < 5.0 L Urine Opiates Screen Ur Buprenorphine Scrn Ur Oxycodone Screen Urine Methadone Screen Urine Fentanyl Screen Acetaminophen < 3 Ur Barbiturates Screen Ur Phencyclidine Scrn Ur Amphetamines Screen U Benzodiazepines Scrn Urine Cocaine Screen U Marijuana (THC) Screen Ethyl Alcohol < 10 Influenza Type A (PCR) Influenza Type B (PCR) RSV RNA Qual (PCR) SARS-CoV-2 RNA (RT-PCR) 11/14/24 11/14/24 11/14/24 01:39 01:44 02:43 MCV MCH MCHC RDW Plt Count MPV Immature Gran % (Auto) Neut % (Auto) Lymph % (Auto) [place] % (Auto) Eos % (Auto) Baso % (Auto) Lymph # (Auto) [place] # (Auto) Eos # (Auto) Baso # (Auto) Abs Immat Gran (auto) Absolute Neuts (auto) Absolute Nucleated RBC Nucleated RBC % (auto) PT INR VBG pH 7.32 VBG pCO2 54 VBG pO2 26 VBG HCO3 29 H VBG O2 Saturation 32.0 VBG Base Excess 2.3 Anion Gap Estim Creat Clear Calc Estimated GFR POC Glucose Random Glucose Calcium Magnesium Total Bilirubin Direct Bilirubin AST ALT Alkaline Phosphatase Total Creatine Kinase C-Reactive Protein B-Natriuretic Peptide Total Protein Albumin Lipase Salicylates Urine Opiates Screen POSITIVE H Ur Buprenorphine Scrn Not Detected Ur Oxycodone Screen Positive H Urine Methadone Screen Not Detected Urine Fentanyl Screen Not Detected Acetaminophen Ur Barbiturates Screen POSITIVE H Ur Phencyclidine Scrn Not Detected Ur Amphetamines Screen Not Detected U Benzodiazepines Scrn Not Detected Urine Cocaine Screen Not Detected U Marijuana (THC) Screen Not Detected Ethyl Alcohol Influenza Type A (PCR) NEGATIVE Influenza Type B (PCR) NEGATIVE RSV RNA Qual (PCR) NEGATIVE SARS-CoV-2 RNA (RT-PCR) NEGATIVE 11/14/24 05:30 MCV 99.7 H MCH 32.2 MCHC 32.3 RDW 12.8 Plt Count 174 MPV 10.6 Immature Gran % (Auto) 0.3 Neut % (Auto) 68.0 Lymph % (Auto) 23.5 [place] % (Auto) 8.2 Eos % (Auto) 0.0 Baso % (Auto) 0.0 Lymph # (Auto) 1.4 [place] # (Auto) 0.5 Eos # (Auto) 0.0 Baso # (Auto) 0.0 Abs Immat Gran (auto) 0.02 Absolute Neuts (auto) 4.1 Absolute Nucleated RBC 0.000 Nucleated RBC % (auto) 0.0 PT INR VBG pH VBG pCO2 VBG pO2 VBG HCO3 VBG O2 Saturation VBG Base Excess Anion Gap 12 Estim Creat Clear Calc 57.1 Estimated GFR 59 POC Glucose Random Glucose 88 Calcium 8.6 Magnesium Total Bilirubin Direct Bilirubin AST ALT Alkaline Phosphatase Total Creatine Kinase C-Reactive Protein B-Natriuretic Peptide Total Protein Albumin Lipase Salicylates Urine Opiates Screen Ur Buprenorphine Scrn Ur Oxycodone Screen Urine Methadone Screen Urine Fentanyl Screen Acetaminophen Ur Barbiturates Screen Ur Phencyclidine Scrn Ur Amphetamines Screen U Benzodiazepines Scrn Urine Cocaine Screen U Marijuana (THC) Screen Ethyl Alcohol Influenza Type A (PCR) Influenza Type B (PCR) RSV RNA Qual (PCR) SARS-CoV-2 RNA (RT-PCR) Assessment and Plan (1) Complex posttraumatic stress disorder: Status: Acute Plan 59F PMH epileptic and nonepileptic seizures, CKD 3, orthostatic hypotension, mood disorder, paroxysmal AFib presented with altered mental status Acute toxic metabolic encephalopathy Possible psychogenic versus postictal Follow up EEG, continue Keppra Paroxysmal AFib Continue Eliquis Orthostatic hypotension Continue midodrine CKD 3 Stable Mood disorder Restart meds when taking p.o. DVT prophylaxis with Eliquis Full Code reason for continued hospitalization: Still altered Quality Stroke Does the patient have a stroke diagnosis?: No VTE Prior VTE?: No VTE Risk Level:: Medical - moderate - high VTE Device Contraindication: Treatment Not Indicated VTE Drug Contraindication: N/A - Med Ordered
[2024-11-14 14:58] LABS: Appearance Urine Clear; Color Urine Yellow; Glucose Urine UA Negative (Negative); Leukocyte Esterase Urine Trace (Negative); Nitrite Urine Positive (Negative); UMIC TRIGGER UACC YES; Urine Blood Negative (Negative); Urine Ketones Negative (Negative); Urine Protein Trace mg/dL (Neg-Trace)
[2024-11-14 15:00] LABS: Bacteria Urine 4+ (None Seen); Hyaline Casts Urine 0-2 /LPF (0-2); RBC Urine 0-2 /HPF (0-2); Squamous Epithelial Cell Urine 0-2 /HPF (0-2); UACC Culture Trigger YES; WBC Urine 0-5 /HPF (0-5)
--- NOTE | 2024-11-14 15:26 | PC.NURSE ---
patient was able to awake to name/verbal stimuli. patient unable to state year, where she was or sons name but was trying to think but stated Im not sure Patient able to follow neuro assessment commands. equal symmetrical smile and No tongue deviation, +CSM to all four extremities.
--- NOTE | 2024-11-14 15:28 | PC.NURSE ---
pt turning self in bed independently.
--- NOTE | 2024-11-14 16:15 | PHA.MEDREC ---
Pharmacy Consult ? Medication Reconciliation Pharmacy has completed the medication reconciliation. Patient is not responsive, left multiple messages with Primary contact, but no return calls. Used medication claims to confirm. Looks like they switched from Bupropion SR to XL recently. Additionally they used to fill Olanzapine 5mg for bedtime, but since 04/2024 have been filling 2.5mg. The 5mg was removed from list along with Bupropion SR.
--- NOTE | 2024-11-14 16:25 | MHC.CM.PN ---
Pt sound asleep, AMS per record, LM for her son Anderson, awaiting return call
--- NOTE | 2024-11-14 19:11 | PC.NURSE ---
this rn assumed care of pt, pt arousable to verbal stimuli at this time and responsive to name. pt vss, seizure precautions remain in place
--- NOTE | 2024-11-14 19:49 | PC.NURSE ---
pt awake and talking to this rn at this time, pt sitting up in bed, states i do not feel good , this rn explained to pt that she will be moving upstairs to a better bed and out of the er and pt replied okay and was agreeable. pt a&ox2. unsure the situation.
[2024-11-14] MEDS: Midodrine HCl 5 MG TABLET PO (22:05)
[2024-11-14] MEDS: Apixaban 2.5 MG TABLET PO (22:05)
[2024-11-15] VITALS (7 sets, daily range): BP systolic 130–172; BP diastolic 60–90; PULSE 65–80; RESP 16–17; TEMP 36–36.6; O2SAT 97–100
[2024-11-15] MEDS: oxyCODONE HCl Immed Release 5 MG TABLET 10 MG PO ×4 (00:32→21:17)
[2024-11-15] MEDS: SUMAtriptan succinate 100 MG TABLET PO ×2 (00:33→17:02)
[2024-11-15] MEDS: levETIRAcetam in NaCl (iso-os) 1,000 MG/100 ML PIGGYBACK 400 MG IV (05:39)
[2024-11-15 07:44] LABS: MANUAL DIFF FLAG NO
[2024-11-15 07:50] LABS: Hematocrit 37.5 % (37.0-47.0); Imm Gran Abs Auto 0.02 X10*3/uL (0.00-0.03); Imm Gran Pct Auto 0.3 % (0.0-0.4); Lymphocytes Absolute Auto 1.3 X10*3/uL (1.2-4.9); Lymphocytes Percent Auto 19.6 % (20-40); Mean Corpuscular Hemoglobin 31.6 pg (27.0-33.0); Mean Corpuscular Volume 98.7 fL (80.0-98.0); Mean Platelet Volume 10.9 fL (9.4-12.3); Monocytes Absolute Auto 0.4 X10*3/uL (0.1-1.2); Monocytes Percent Auto 6.5 % (2-11); Neutrophils Absolute Auto 4.8 x10*3/uL (2.0-8.3); Neutrophils Percent Auto 73.6 % (45-73); Platelet Count 211 X10*3/uL (160-400); Red Cell Distribution Width 12.6 % (11.0-16.0); White Blood Count 6.6 X10*3/uL (4.8-10.8)
[2024-11-15 08:02] LABS: Anion Gap 12 (12-20); Blood Urea Nitrogen 16 mg/dL (9-16); Calcium 8.9 mg/dL (8.4-10.2); Carbon Dioxide 23 mmol/L (22-29); Chloride 114 mmol/L (96-108); Creatinine Clr Calc Pharmacy 73.4; Estimated Glomerular Filt Rate > 60; Glucose Random 77 mg/dL (60-115); Potassium 3.9 mmol/L (3.3-5.1); Sodium 145 mmol/L (135-145)
--- NOTE | 2024-11-15 08:41 | MHC.CM.PN ---
IMM 11/15/24, Pt. lives with her son, he is a quadriplegic. Pt. has home health services from [facility]: 40 hrs a week, she requires assistance with bathing, and dressing. She has VNA services 3 x a week from [facility], referral sent. For DME, she has a walker, raised toilet seat and grab bars in bathroom. HCP is her son, she will complete form here and it will be added to chart. PCP is Ailin Araujo. Pt. will need assistance with transport home at [place]. DCP: home, resume home care services, CM to follow for DC needs.
[2024-11-15] MEDS: cefTRIAXone sodium 1 GM VIAL IVPUSH (09:02)
[2024-11-15] MEDS: Apixaban 2.5 MG TABLET PO ×2 (09:03→21:15)
[2024-11-15] MEDS: Midodrine HCl 5 MG TABLET PO ×3 (09:03→21:17)
[2024-11-15] MEDS: 0.9 % Sodium Chloride Flush 3 ML SYRINGE IVFLUSH ×3 (09:04→21:19)
--- NOTE | 2024-11-15 09:41 | HO.PM.IMPN ---
Subjective Subjective Date of Service: 11/15/24 Interval History: awake, no complaints Physical Exam Vital Signs: Vital Signs: Last Vital Signs Temp 97.9 F 11/15/24 08:00 Pulse 80 11/15/24 08:00 Resp 17 11/15/24 08:00 BP 130/60 11/15/24 09:13 Pulse Ox 98 11/15/24 08:00 O2 Del Method Room Air 11/15/24 08:00 BMI result Body Mass Index 30.1 General: AO X 3, no acute distress Resp: CTA bilateral, no accessory muscles used CVS: S1,S2,RRR GI: soft, non tender, non distended Neuro: motor grossly intact, alert Psych: appropriate affect, appropriate insight Objective Data Active Medications Acetaminophen (Acetaminophen 325 Mg Tablet) 975 mg PO Q6H PRN PRN Reason: Pain, Mild 1-3,fever,headache Acetaminophen/Butalbital/Caffeine (Butalb/Acetamin/Caff 50/325/40 Tablet) 1 tab PO Q6H PRN PRN Reason: Migraine Headache Albuterol Sulfate (Albuterol Sulfate 90 Mcg 8 Gm Inhaler) 1 puff INHALE Q4H PRN PRN Reason: dyspnea Apixaban (Apixaban 2.5 Mg Tablet) 2.5 mg PO BID [facility] Last Admin: 11/15/24 09:03 Dose: 2.5 mg Documented By: WILLIAN Bupropion HCl (Bupropion Hcl Xl 300 Mg Tab.Er.24h) 300 mg PO DAILY [facility] Calcium Carbonate (Calcium Carbonate 750 Mg Tab.Chew) 750 mg PO Q4H PRN PRN Reason: Heartburn Ceftriaxone Sodium (Ceftriaxone Sodium 1 Gm Vial) 1 gm IVPUSH Q24H [facility] Last Admin: 11/15/24 09:02 Dose: 1 gm Documented By: WILLIAN Clonazepam (Clonazepam 0.5 Mg Tablet) 0.5 mg PO TID PRN PRN Reason: anxiety Cyclobenzaprine HCl (Cyclobenzaprine Hcl 10 Mg Tablet) 10 mg PO TID [facility] Diazepam (Diazepam 10 Mg/2 Ml Cartridge) 5 mg IVPUSH Q6H PRN PRN Reason: agitation Duloxetine HCl (Duloxetine Hcl 20 Mg Capsule.Dr) 40 mg PO DAILY [facility] Escitalopram Oxalate (Escitalopram Oxalate 5 Mg Tablet) 5 mg PO DAILY [facility] Escitalopram Oxalate (Escitalopram Oxalate 10 Mg Tablet) 10 mg PO DAILY [facility] Levetiracetam (Levetiracetam 1,000 Mg Tablet) 2,000 mg PO BID [facility] Loratadine (Loratadine 10 Mg Tablet) 10 mg PO DAILY PRN PRN Reason: allergies Magnesium Hydroxide (Milk Of Magnesia 30 Ml Oral.Susp) 30 ml PO DAILY PRN PRN Reason: Constipation Melatonin (Melatonin 3 Mg Tablet) 6 mg PO BEDTIME PRN PRN Reason: Insomnia Midodrine (Midodrine Hcl 5 Mg Tablet) 5 mg PO TID [facility] Last Admin: 11/15/24 09:03 Dose: 5 mg Documented By: WILLIAN Montelukast Sodium (Montelukast Sodium 10 Mg Tablet) 10 mg PO DAILY [facility] Multivitamins/Vitamin C (Multivitamin Tablet) 1 tab PO DAILY [facility] Olanzapine (Olanzapine 2.5 Mg Tablet) 2.5 mg PO BEDTIME [facility] Omeprazole (Omeprazole 20 Mg Capsule.Dr) 20 mg PO DAILY@0630 [facility] Ondansetron HCl (Ondansetron Hcl 4 Mg/2 Ml Vial) 4 mg IVPUSH Q8H PRN PRN Reason: Nausea and Vomiting Oxycodone HCl (Oxycodone Hcl Immed Release 5 Mg Tablet) 10 mg PO BID PRN PRN Reason: Breakthrough Pain Oxycodone HCl (Oxycodone Hcl Immed Release 5 Mg Tablet) 10 mg PO TID [facility] Sodium Chloride (0.9 % Sodium Chloride Flush 3 Ml Syringe) 3 ml IVFLUSH QSHIFT [facility] Last Admin: 11/15/24 09:04 Dose: 3 ml Documented By: WILLIAN Sumatriptan Succinate (Sumatriptan Succinate 100 Mg Tablet) 100 mg PO DAILY PRN PRN Reason: Migraine Headache Labs 11/15/24 06:56 11/15/24 06:56 Labs: Laboratory Results - last 24 hr 11/14/24 11/15/24 14:42 06:56 MCV 98.7 H MCH 31.6 MCHC 32.0 RDW 12.6 Plt Count 211 MPV 10.9 Immature Gran % (Auto) 0.3 Neut % (Auto) 73.6 H Lymph % (Auto) 19.6 L [place] % (Auto) 6.5 Eos % (Auto) 0.0 Baso % (Auto) 0.0 Lymph # (Auto) 1.3 [place] # (Auto) 0.4 Eos # (Auto) 0.0 Baso # (Auto) 0.0 Abs Immat Gran (auto) 0.02 Absolute Neuts (auto) 4.8 Absolute Nucleated RBC 0.000 Nucleated RBC % (auto) 0.0 Anion Gap 12 Estim Creat Clear Calc 73.4 Estimated GFR > 60 Random Glucose 77 Calcium 8.9 Urine Color Yellow Urine Appearance Clear Urine pH 6.0 Ur Specific [place] 1.020 Urine Protein Trace Urine Glucose (UA) Negative Urine Ketones Negative Urine Blood Negative Urine Nitrite Positive H Ur Leukocyte Esterase Trace H Urine RBC 0-2 Urine WBC 0-5 Ur Squamous Epith Cells 0-2 Urine Bacteria 4+ Hyaline Casts 0-2 Assessment and Plan (1) Complex posttraumatic stress disorder: Status: Acute Plan 59F PMH epileptic and nonepileptic seizures, CKD 3, orthostatic hypotension, mood disorder, paroxysmal AFib presented with altered mental status Acute toxic metabolic encephalopathy due to breakthrough seizure with prolonged postictal perious EEG grossly abnormal now alert d/w neuro, continue keppra 2gm bid, follow up levels if therapeutic - add depakote 500mg bid Paroxysmal AFib Continue Eliquis Orthostatic hypotension holding midodrine -normal bp CKD 3 Stable Mood disorder continue olanxapine, lexapro, sertraline DVT prophylaxis with Eliquis Full Code reason for continued hospitalization: awaaudelia adrianra level Quality Stroke Does the patient have a stroke diagnosis?: No VTE Prior VTE?: No VTE Risk Level:: Medical - moderate - high VTE Device Contraindication: Treatment Not Indicated VTE Drug Contraindication: N/A - Med Ordered
[2024-11-15] MEDS: Montelukast Sodium 10 MG TABLET PO (09:52)
[2024-11-15] MEDS: Omeprazole 20 MG CAPSULE.DR PO (09:53)
[2024-11-15] MEDS: Escitalopram Oxalate 5 MG TABLET PO (09:53)
[2024-11-15] MEDS: buPROPion HCl XL 300 MG TAB.ER.24H PO (09:53)
[2024-11-15] MEDS: Escitalopram Oxalate 10 MG TABLET PO (09:53)
[2024-11-15] MEDS: Multivitamin TABLET 1 TAB PO (09:53)
[2024-11-15] MEDS: Cyclobenzaprine HCl 10 MG TABLET PO ×2 (16:56→21:16)
[2024-11-15] MEDS: levETIRAcetam 1,000 MG TABLET 2000 MG PO (21:16)
[2024-11-15] MEDS: OLANZapine 2.5 MG TABLET PO (21:17)
[2024-11-16] VITALS: BP 123/67; PULSE 62; RESP 18; TEMP 36.2; O2SAT 96
[2024-11-16 03:25] VITALS: BP 121/69; PULSE 57; RESP 18; TEMP 36.2; O2SAT 96
[2024-11-16] MEDS: Omeprazole 20 MG CAPSULE.DR PO (05:39)
[2024-11-16 08:00] VITALS: BP 134/72; PULSE 65; RESP 17; TEMP 36.2; O2SAT 99
[2024-11-16] MEDS: oxyCODONE HCl Immed Release 5 MG TABLET 10 MG PO (08:04)
[2024-11-16] MEDS: Cyclobenzaprine HCl 10 MG TABLET PO (08:05)
[2024-11-16] MEDS: Montelukast Sodium 10 MG TABLET PO (08:06)
[2024-11-16] MEDS: Escitalopram Oxalate 5 MG TABLET PO (08:06)
[2024-11-16] MEDS: Escitalopram Oxalate 10 MG TABLET PO (08:06)
[2024-11-16] MEDS: Midodrine HCl 5 MG TABLET PO (08:06)
[2024-11-16] MEDS: Multivitamin TABLET 1 TAB PO (08:06)
[2024-11-16] MEDS: Apixaban 2.5 MG TABLET PO (08:06)
[2024-11-16] MEDS: DULoxetine HCl 20 MG CAPSULE.DR 40 MG PO (08:06)
[2024-11-16] MEDS: levETIRAcetam 1,000 MG TABLET 2000 MG PO (08:07)
[2024-11-16] MEDS: 0.9 % Sodium Chloride Flush 3 ML SYRINGE IVFLUSH (08:07)
[2024-11-16] MEDS: cefTRIAXone sodium 1 GM VIAL IVPUSH (08:07)
[2024-11-16 08:17] LABS: MANUAL DIFF FLAG NO
[2024-11-16] MEDS: buPROPion HCl XL 300 MG TAB.ER.24H PO (08:18)
[2024-11-16 08:30] LABS: Hematocrit 35.3 % (37.0-47.0); Hemoglobin 11.2 g/dl (12.0-16.0); Imm Gran Abs Auto 0.02 X10*3/uL (0.00-0.03); Imm Gran Pct Auto 0.3 % (0.0-0.4); Lymphocytes Absolute Auto 1.4 X10*3/uL (1.2-4.9); Lymphocytes Percent Auto 19.6 % (20-40); Mean Corpuscular HGB Conc 31.7 g/dl (31.0-35.0); Mean Corpuscular Hemoglobin 31.7 pg (27.0-33.0); Mean Platelet Volume 11.1 fL (9.4-12.3); Monocytes Absolute Auto 0.5 X10*3/uL (0.1-1.2); Monocytes Percent Auto 7.4 % (2-11); Neutrophils Percent Auto 72.7 % (45-73); Platelet Count 188 X10*3/uL (160-400); Red Blood Count 3.53 X10*6/uL (4.20-5.50); Red Cell Distribution Width 12.6 % (11.0-16.0); White Blood Count 6.9 X10*3/uL (4.8-10.8)
[2024-11-16 08:45] LABS: Anion Gap 9 (12-20); Blood Urea Nitrogen 13 mg/dL (9-16); Calcium 8.7 mg/dL (8.4-10.2); Carbon Dioxide 24 mmol/L (22-29); Chloride 113 mmol/L (96-108); Creatinine Clr Calc Pharmacy 71.6; Estimated Glomerular Filt Rate > 60; Glucose Random 93 mg/dL (60-115); Potassium 3.7 mmol/L (3.3-5.1); Sodium 142 mmol/L (135-145)
--- NOTE | 2024-11-16 10:49 | P.DS_ITS ---
DS: Providers Provider Date of Service: 11/16/24 Date of admission: 11/14/24 10:33 Date of discharge: 11/16/24 Primary care physician: Unknown Physician Consults: 11/14/24 04:36 Consult to Neurology Routine Consulting Provider: [facility] Reason for consultation: breakthrough seizure vs pseudoseizure Has provider been notified: No DS: Diagnosis Discharge Diagnosis (1) Complex posttraumatic stress disorder: Status: Acute DS: Summary Hospital Course Hospital Course: from initial hpi: 59-year-old female with a past medical history significant for seizures versus pseudoseizures, CKD 3A, orthostatic hypotension, MDD, complex PTSD, history AFib, who presented to the ED via EMS after her son witnessed a possible seizure. He reported seizure-like activity followed by strange behavior. The patient was walking in circles and fell on her buttocks. She did not strike her head however she was hypotensive and bradycardic when EMS arrived. The patient has been nonresponsive aside from with painful stimuli. Patient is unable to give a history at this time therefore the history is obtained by the ED provider. Per ED note the pt has a very complex past medical history. She lives with her son. Her son is quadriplegic. The patient has a history of multiple episodes of seizure activity. She has been hospitalized multiple times for altered mental status which might be related to prolonged postictal episodes. Additionally the patient has been felt to misuse her prescribed chronic narcotic medications and chronic benzodiazepines. hospital course: Patient was admitted for acute toxic metabolic encephalopathy due to breakthrough seizures with prolonged postictal.. Patient's EEG was grossly abnormal. She eventually woke up and is now back to baseline. Case was discussed with neurology recommended continuing Keppra 2 g b.i.d. and adding Depakote 500 mg b.i.d. assuming Keppra level is therapeutic which are still pending. for paroxysmal AFib was continued on Eliquis. For orthostatic hypotension midodrine was held due to normal blood pressures. For CKD 3 was stable. For mood disorder was continued on olanzapine, Lexapro, sertraline. for uti was treated with rocephin, culture growing gnr and shoould be followed up and adjusted as neccessary, will dc on 5 days ceftin Time Attestation Discharge Coordination Time (in mins): 33 Quality: Safe Use of Opioids Does Pt have an Active Cancer Diagnosis on the Problem List?: No Quality: Stroke Does the patient have a stroke diagnosis?: No Physical Exam Vital Signs: Vital Signs: Last Vital Signs Temp 97.1 F 11/16/24 08:00 Pulse 65 11/16/24 08:00 Resp 17 11/16/24 08:00 BP 134/72 11/16/24 08:00 Pulse Ox 99 11/16/24 08:00 O2 Del Method Room Air 11/16/24 08:00 BMI result Body Mass Index 30.1 General: AO X 3, no acute distress Resp: CTA bilateral, no accessory muscles used CVS: S1,S2,RRR GI: soft, non tender, non distended Neuro: motor grossly intact, alert Psych: appropriate affect, appropriate insight DS: Data Data Completed and Pending Labs on day of discharge: Laboratory Results - last 24 hr 11/16/24 07:22 WBC 6.9 RBC 3.53 L Hgb 11.2 L Hct 35.3 L MCV 100.0 H MCH 31.7 MCHC 31.7 RDW 12.6 Plt Count 188 MPV 11.1 Immature Gran % (Auto) 0.3 Neut % (Auto) 72.7 Lymph % (Auto) 19.6 L [place] % (Auto) 7.4 Eos % (Auto) 0.0 Baso % (Auto) 0.0 Lymph # (Auto) 1.4 [place] # (Auto) 0.5 Eos # (Auto) 0.0 Baso # (Auto) 0.0 Abs Immat Gran (auto) 0.02 Absolute Neuts (auto) 5.0 Absolute Nucleated RBC 0.000 Nucleated RBC % (auto) 0.0 Sodium 142 Potassium 3.7 Chloride 113 H Carbon Dioxide 24 Anion Gap 9 L BUN 13 Creatinine 0.80 Estim Creat Clear Calc 71.6 Estimated GFR > 60 Random Glucose 93 Calcium 8.7 Preliminary micro results at discharge 11/14/24 Unknown Urine Culture - Preliminary Urine clean catch - Clean Catch Midstream Culture in progress. Discharge Plan Discharge Anticipated Discharge Date/Time: 11/16/24 10:31 Patient Disposition: Home, Self-Care Discharge Diagnosis: Seizure Referrals: Physician,Unknown J [Primary Care Provider] - 1 Week Discharge Medications: New divalproex [Depakote] 500 mg tablet,delayed release (DR/EC) 500 mg PO BID Qty: 180 0RF cefuroxime axetil 500 mg tablet 500 mg PO BID Qty: 10 0RF Continued ondansetron HCl 8 mg tablet 1 tab PO TID PRN (Reason: nausea/vomiting) loperamide 2 mg capsule 2 mg PO Q4H multivitamin Tablet 1 tab PO DAILY cetirizine 10 mg tablet 10 mg PO DAILY PRN (Reason: allergies) sumatriptan succinate 100 mg tablet 100 mg PO DAILY PRN (Reason: Migraine Headache) omeprazole 20 mg capsule,delayed release(DR/EC) 20 mg PO DAILY epinephrine 0.3 mg/0.3 mL auto-injector 0.3 mg IM ONCE PRN (Reason: anaphylaxis) levetiracetam 1,000 mg tablet 2,000 mg PO BID oxycodone 10 mg tablet 10 mg PO TID clonazepam 0.5 mg tablet 0.5 mg PO TID PRN (Reason: anxiety) olanzapine 2.5 mg tablet 2.5 mg PO BEDTIME scopolamine base 1 mg over 3 days patch 3 day 1 patch topical Q3D bupropion HCl 300 mg tablet extended release 24 hr 300 mg PO DAILY escitalopram oxalate 5 mg tablet 5 mg PO DAILY [id number] 50-300-40 mg capsule 1 cap PO Q6H PRN (Reason: Migraine Headache) montelukast 10 mg tablet 10 mg PO DAILY albuterol sulfate 90 mcg/actuation HFA aerosol inhaler 1 puff inhalation Q4H PRN (Reason: dyspnea) oxycodone 10 mg tablet 10 mg PO BID PRN (Reason: Breakthrough Pain) duloxetine 40 mg capsule,delayed release(DR/EC) 40 mg PO DAILY bumetanide 0.5 mg tablet 0.5 mg PO BID 90 Days Qty: 180 3RF midodrine 5 mg tablet 5 mg PO BID Qty: 60 11RF cyclobenzaprine 10 mg tablet 10 mg PO TID Eliquis 2.5 mg tablet 2.5 mg PO BID escitalopram oxalate 10 mg tablet 10 mg PO DAILY Discharge Orders: Discharge Order (Routine); Ordered 11/16/24 Ordered By: Terry Ladd Diet: Advance to usual diet Activity on Discharge: As tolerated Stand Alone Forms: Patient Portal Discharge page Print Language: Bengali Care Plan Goals: recovery Health Concerns: seziure Plan of Treatment: added depakote, continue keppra, follow up neuro and keppra levels no driving compelte ceftin course for uti Assessment: see above
--- NOTE | 2024-11-16 10:52 | MHC.CM.PN ---
Pt has been medically cleared for DC, she will go home via [facility] shuttle, plan is self care.
[2024-11-16 12:00] VITALS: BP 130/77; PULSE 71; RESP 17; TEMP 36.2; O2SAT 100
--- NOTE | 2024-11-17 09:49 | P.CDIM_ITS ---
PROVIDER RESPONSE TEXT: To clarify, the appropriate diagnosis supported by the clinical indicators: Hypernatremia: mild QUERY TEXT: PHYSICIAN'S DOCUMENTATION REQUEST Date of Query: 11/15/2024 09:19 AM EDT Patient Name: BRIANDA EUCEDA Admit Date: 11/14/2024 Dear Terry Ladd MD, A review of the medical record indicates additional documentation may be needed. Please review below and update the documentation accordingly. Clinical Indicators: LABS: sodium 146 H 145 IVF Based on the above is there a diagnosis that correlates with these findings? Hypernatremia resolved, possible, suspected etc. Labs indicate a diagnosis of (please specify) Other (explain) Clinically unable to determine (explain) Thank you, Norma Mcgowan, CCS, CDIS Use of terms such as suspected, likely, concern for, or probable (associated with a specific diagnosi s that is being evaluated, monitored, or treated as if it exists) are acceptable and can be coded in the inpatient se tting, when documented at the time of discharge. Please use your independent medical judgment in providing your response. THIS QUERY IS PART OF THE PERMANENT MEDICAL RECORD
[2024-11-17 21:33] LABS: Levetiracetam Keppra 27.1 mcg/mL (6.0-46.0)
== END 2024-11-16 13:30 | disposition home or self-care (01) | DRG 101 ==
LOC: HO.ED 04:43 → HO.EDOVER 04:48 → HO.IMC 19:25
PROVIDERS: Physician Assistant; Admitting Provider Student in an Organized Health Care Education/Training Program; Emergency Provider Emergency Medicine; PCP Family Medicine; Visit Provider Internal Medicine
DX: G40.909 Epilepsy, unspecified, not intractable, without status epilepticus (principal); E87.0 Hyperosmolality and hypernatremia; E87.20 Acidosis, unspecified; F33.2 Major depressive disorder, recurrent severe without psychotic features; I48.0 Paroxysmal atrial fibrillation; N18.31 Chronic kidney disease, stage 3a; F43.10 Post-traumatic stress disorder, unspecified; Z20.822 Contact with and (suspected) exposure to COVID-19; Z79.01 Long term (current) use of anticoagulants; Z79.899 Other long term (current) drug therapy
CPT/HCPCS: 0241U; 36415; 70450; 71045; 73600; 80048; 80076; 80143; 80177; 80179; 80307; 81001; 82550; 82803; 82947; 83690; 83735; 83880; 84484; 85025; 85610; 86140; 87086; 87088; 87186; 93005; 95816; 99222; 99285; J0696; J1953; J7120

== ENCOUNTER → 2024-11-14 01:16 | Outpatient (BNV) | payer MEDICARE, MEDICAID, SELFPAY | PROVIDERS: Admitting Provider Student in an Organized Health Care Education/Training Program; Emergency Provider Emergency Medicine; Visit Provider Internal Medicine | DX: R00.1 Bradycardia, unspecified (principal) | CPT/HCPCS: 93010 ==

== ENCOUNTER → 2024-11-14 01:26 | Outpatient (BNV) | payer MEDICARE, MEDICAID, SELFPAY | PROVIDERS: Emergency Provider Emergency Medicine; Visit Provider Radiology Diagnostic Radiology | DX: R41.82 Altered mental status, unspecified (principal) | CPT/HCPCS: 70450; 71045 ==

== ENCOUNTER → 2024-11-14 04:27 | Outpatient (BNV) | payer MEDICARE, MEDICAID, SELFPAY | PROVIDERS: Admitting Provider Student in an Organized Health Care Education/Training Program; Emergency Provider Emergency Medicine; Visit Provider Psychiatry & Neurology Neurology | DX: G40.909 Epilepsy, unspecified, not intractable, without status epilepticus (principal); R41.82 Altered mental status, unspecified; I95.1 Orthostatic hypotension; F33.2 Major depressive disorder, recurrent severe without psychotic features | CPT/HCPCS: 99222 ==

== ENCOUNTER → 2024-11-14 04:27 | Outpatient (BNV) | payer MEDICARE, MEDICAID, SELFPAY | PROVIDERS: Admitting Provider Student in an Organized Health Care Education/Training Program; Emergency Provider Emergency Medicine; Visit Provider Physician Assistant | DX: F43.10 Post-traumatic stress disorder, unspecified (principal) | CPT/HCPCS: 99223; 99232; 99239; 99499 ==

== ENCOUNTER 2024-12-07 14:08 | Outpatient (AMB) | payer MEDICARE, MEDICAID, SELFPAY ==
--- NOTE | 2024-12-07 14:23 | HO.NEPHOV ---
Vital Signs 12/07/24 14:26 Height 5 ft 2 in Weight 148 lb 4 oz BMI 27.1 BP 140/80 H Blood Pressure Location Rt brachial Position Sitting Pulse 82 Pulse Source Pulse Oximeter Pulse Oximetry (%) 97 Oxygen Delivery Method Room Air Intake Visit Reasons: Discharged from [facility] 11/23/24 Appeals Representative Required: No Accompanied by: Self / Same As Patient Allergies bee pollen [Bee Stings] Allergy (Severe, Verified 12/07/24 14:26) ANAPHYLAXIS codeine [Codeine] Allergy (Severe, Verified 12/07/24 14:26) ANAPHYLAXIS macadamia nut Allergy (Severe, Verified 12/07/24 14:26) Anaphylaxis Penicillins Allergy (Severe, Verified 12/07/24 14:26) Anaphylaxis Sulfa (Sulfonamide Antibiotics) Allergy (Severe, Verified 12/07/24 14:) Anaphylaxis sulfamethoxazole [From Bactrim] Allergy (Severe, Verified 12/07/24 14:26) Anaphylaxis trimethoprim [From Bactrim] Allergy (Severe, Verified 12/07/24 14:26) Anaphylaxis aspirin [ASA] Allergy (Verified 12/07/24 14:26) Unknown ciprofloxacin [From Cipro] Allergy (Verified 12/07/24 14:26) Rash Iodinated Contrast Media [Contrast Dye] Allergy (Verified 12/07/24 14:26) Hives latex Allergy (Verified 12/07/24 14:) Rash HPI Comments Details: Jayda was seen for her chronic kidney disease. Her seizures had been better controlled but had relapse with seizures after she was initiated on wellbutryin . She remains on Bumex dose 0.5 mg twice daily. Her breast cancer is closely monitored by [facility]. She denies any chest pain, shortness of breath, nausea, vomiting, diarrhea, weight gain, orthopnea or paroxysmal nocturnal dyspnea. She is not taking any nonsteroidal anti-inflammatory medications. She had no orthostatic symptoms. Her BP has been high and her midodrine has been put on hold. She has history of atrial fibrillation which has been under control [facility] Medical History (Updated 11/21/24 @ 00:01 by Background Daemon) Accidental medication overdose Altered mental state Hypotension Orthostatic hypotension Seizure disorder History of prolonged Q-T interval on ECG Psychogenic nonepileptic seizure CKD (chronic kidney disease) stage 3, GFR 30-59 ml/min COPD (chronic obstructive pulmonary disease) GERD (gastroesophageal reflux disease) Port-A-Cath in place Malabsorption Compression fracture of C3 vertebra Self-catheterizes urinary bladder Neuropathy SIADH (syndrome of inappropriate ADH production) Chronic anemia Enlarged liver Enlarged heart History of atrial fibrillation Polysubstance abuse Von Willebrand disease Factor V deficiency Depression Uterine cancer Breast cancer Migraines Asthma Seizure Surgical History H/O knee surgery Hx of cholecystectomy History of hysterectomy H/O gastric bypass Social History Household Members: Children Household Members Other:: One son Housing: House Housing Other:: House has ramps Do you presently have visiting nurse or other home services: No Unable to assess alcohol history related to: Unknown Alcohol intake: unknown Comment: 1:1 Sitter at bedside Patient Tobacco Use Status: Never used Tobacco Tobacco use type: Cigarette Cigarettes Per Day: 2 e-Cigarette/Vaping Use: Never Used service: No Review of Systems Const All systems reviewed & are unremarkable except as noted in HPI and below Physical Exam Vital Signs: Last Vital Signs Pulse 82 12/07/24 14:26 BP 140/80 H 12/07/24 14:26 Pulse Ox 97 12/07/24 14:26 Oxygen Delivery Method Room Air 12/07/24 14:26 BMI result Body Mass Index 27.1 Const General: comfortable and no acute distress Orientation/consciousness: patient oriented x3 HEENT Head: Yes normocephalic Mouth: Normal oral and palatal mucosa present Eyes EOM: EOMs intact bilaterally Neck Neck: Yes supple Resp Auscultation: clear to auscultation bilaterally Cardio Jugular venous distension: no JVD Rate: regular rate GI Palpation (GI): Soft to palpation Auscultation: normal bowel sounds General: Yes no CVA tenderness Back/Spine/Pelvis Back: no CVA tenderness Skin General skin exam: no rashes or lesions noted Neuro General: patient oriented x3 and moves all extremities Extrem General: Yes no pedal edema Results Reviewed Nephrology Results: Hgb 11.2 g/dl (12.0-16.0) L 11/16/24 WBC 6.9 X10*3/uL (4.8-10.8) 11/16/24 Plt Count 188 X10*3/uL (160-400) 11/16/24 Sodium 142 mmol/L (135-145) 11/16/24 Potassium 3.7 mmol/L (3.3-5.1) 11/16/24 Chloride 113 mmol/L (96-108) H 11/16/24 Carbon Dioxide 24 mmol/L (22-29) 11/16/24 BUN 13 mg/dL (9-16) 11/16/24 Creatinine 0.80 mg/dL (0.5-1.4) 11/16/24 Calcium 8.7 mg/dL (8.4-10.2) 11/16/24 Urine Protein Trace mg/dL (Neg-Trace) 11/14/24 Assessment & Plan Assessment & Plan (1) CKD stage 3a, GFR 45-59 ml/min: Code(s): N18.31 - Chronic kidney disease, stage 3a Category: Medical Plan Jayda has chronic kidney disease . Her serum creatinine is stable. Her volume status got optimized and is on Bumex 0.5 mg twice daily. She can have 2 mg if needed if she has excess swelling while on Bumex 0.5 mg bid. She is not consuming excess salt. I asked her not to take excessive diuretics. Her midodrine is on hold. I shall consider starting low dose of metoprolol if her BP is high given her H/O A Fib. She is avoiding nonsteroidal anti-inflammatory medications. She should maintain good hydration. I asked her to repeat blood work soon. She will be seen in office in follow-up Orders: Orders Creatinine 1 Month N18.31 - Chronic kidney disease, stage 3a Blood Urea Nitrogen 1 Month N18.31 - Chronic kidney disease, stage 3a Electrolytes 1 Month N18.31 - Chronic kidney disease, stage 3a Coding Level of Care Code Est Pt Level 4 (29233) Diagnoses CKD stage 3a, GFR 45-59 ml/min N18.31
[2024-12-07 14:26] VITALS: BP 140/80; PULSE 82; O2SAT 97; BMI 27.1
== END 2024-12-07 14:45 | disposition home or self-care (01) ==
LOC: HO.HKA 14:09
PROVIDERS: PCP Family Medicine; Visit Provider Internal Medicine Nephrology
DX: N18.31 Chronic kidney disease, stage 3a (principal)
CPT/HCPCS: 99214

== ENCOUNTER → 2024-12-07 14:08 | Outpatient (BNVA) | payer MEDICARE, MEDICAID, SELFPAY | PROVIDERS: PCP Family Medicine; Visit Provider Internal Medicine Nephrology | DX: N18.31 Chronic kidney disease, stage 3a (principal) | CPT/HCPCS: 99212 ==

== ENCOUNTER 2024-12-28 11:02 | Outpatient (REF) | payer MEDICARE, MEDICAID, SELFPAY ==
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
[2024-12-28 12:55] LABS: Anion Gap 13 (12-20); Blood Urea Nitrogen 33 mg/dL (9-16); Calcium 9.7 mg/dL (8.4-10.2); Carbon Dioxide 24 mmol/L (22-29); Chloride 108 mmol/L (96-108); Estimated Glomerular Filt Rate 52; Potassium 4.1 mmol/L (3.3-5.1); Sodium 141 mmol/L (135-145)
== END 2024-12-28 11:03 | disposition home or self-care (01) ==
LOC: HO.LAB 11:02
PROVIDERS: Visit Provider Internal Medicine Nephrology
DX: I95.1 Orthostatic hypotension (principal); N18.31 Chronic kidney disease, stage 3a
CPT/HCPCS: 36415; 80051; 82310; 82565; 84520

== ENCOUNTER 2025-01-16 10:18 | Outpatient (AMB) | payer MEDICARE, MEDICAID, SELFPAY ==
--- OUTSIDE RECORDS SUMMARY | 2025-01-11 23:59 | XMS_ITS | Continuity of Care Document ---
Author Organization [facility] Address [address] [place] [address] [facility] Name Relationship Address Phone ZULAY NIETO unrelated friend Unknown Unavailable LAMAGDELAINE, JOANNA sibling Unknown Unavailab le LAMAGDELAINE, BRIANDA Personal Relationship Unknown Unavailable LAMAGDELAINE, BRIANDA Personal Relationship Unknown Unavailable LAMAGDELAINE, MARYCAROL mother Unknown Unav ailable LAMAGDELAINE, BRIANDA Personal Relationship Unknown Unavailable LAMAGDELAINE, BRIANDA Personal Relationship Unknown Unavailable LAMAGDELAINE, BRIANDA Personal Relationship Unknown Unavailable LAMAGDELAINE, BRIANDA Personal Relationship Unknown Unavailable LAMAGDELAINE, AILIN Lilly mother Unknown Unavail able SICASEY, SAYRA unrelated friend Unknown Unavaila ble PAL, SHANNAN Other Unknown Unavailab le LAMAGDELAINE, BRIANDA Personal Relationship Unknown Unavailable COLON, NITHYA unrelated friend Unknown Unavailable LAMAGDELAINE, ORLANDO child Unknown Unava ilable ELIA, MAIK unrelated friend Unknown Unavail able Care Team Providers Care Buckshot Swage Operator Name Role Phone Van [place], Ailin Pyle Primary Care Physician [phone] Encounter [facility] Date(s): 12/12/24 - 01/11/[address] [address] Encounter Type: Triage Allergies, Adverse Reactions, Alerts Substance Criticality Severity Reaction Reaction Severity Status codeine itchy with codeine alone Active penicillin Unable to assess criticality Persistent Severe anaphylaxis Active aspirin Unable to assess criticality Persistent Moderate Von Willebrand Active sulfa drugs anaphylaxis Active Depakote Drug-induced liver injury Active Bee Stings Active Contrast Dye itchy Active Latex rash Active Nuts 1 macadamia nuts cause anaphylaxis Active 1macadamia nuts Immunizations Given and Recorded Vaccine Date Status Refusal Reason SARS-CoV-2(COVID-19)mRNA-LNP vac(vhe704) 05/25/24 Recorded SARS-CoV-2(COVID-19)mRNA-LNP vac(ymz526) 05/06/23 Recorded influenza virus vaccine, inactivated 04/19/24 [...] acel(Tdap) 04/19/22 Recorded tetanus/diphtheria/pertussis, acel(Tdap) 02/06/14 Given [id number] 12y+ bivalent booster vax 04/03/22 Recorded SARS-CoV-2 mRNA (dvrapek-vjbr-utxgb) vax 11/25/21 Recorded SARS-CoV-2 (COVID-19) mRNA BNT-162b2 vac 06/24/21 Recorded SARS-CoV-2 (COVID-19) mRNA BNT-162b2 vac 10/15/20 Recorded SARS-CoV-2 (COVID-19) mRNA BNT-162b2 vac 09/24/20 Recorded Influenza Virus Vaccine (oldterm) 6 06/18/20 Recor ded pneumococcal 23-valent vaccine 04/03/14 Given 1Result Comment: [facility] [id number] 2Result Comment: [facility] [id number] 3Result Comment: [facility]# [id number] 4Result Comment: [06/10/2017] [facility]# [id number] 5Result Comment: [02/06/2014] Ronald Brumfield 6Result Comment: in cis Medications acetaminophen 325 [...] Refills, Maintenance, 08/06/24 3:11:00 PM EST, Tablet, [facility] #[id number], Partial fill upon patient request if the prescription is for a schedule II opioid drug., 1 tabletBy Mouth Every 6 hours as needed ; not to exceed 6 tablets/day,PRN:as needed, 160, cm, 08/01/24 11:48:00 EST, Height, 67.9, kg, 04/19/24 13:50:00 EDT, Dry Weight Start Date: 08/06/24 Status: Ordered Quantity: 90.0 Unit: tablet Repeat number: 2 Indications: Migraine, unspecified, not intractable, without status migrainosus; bumetanide 0.5 mg oral tablet 0.5 mg, 1, tablet, By Mouth, 2 times a day, Refills 0, Maintenance, 06/13/24 10:26:00 AM EST, Partial fill upon patient request if the prescription is for a schedule II opioid drug. Start Date: 06/13/24 Status: Ordered Repeat number: 1 buPROPion 200 mg/12 hours (SR) oral tablet, extended release 1 tablet = 200 mg, By Mouth, 2 times a day, 0 Refills, Maintenance, 10/16/24 10:37:00 AM EDT, Partialfill upon patient request if the prescription is for a schedule II opioid drug. Start Date: 10/16/24 Status: Ordered Repeat number: 1 clonazePAM 0.5 mg oral tablet 1 tablet = 0.5 mg, By Mouth, 2 times a day, PRN Anxiety, # 56 tablet, 0 Refills, Maintenance, 02/23/24 6:15:00 PM EDT, Tablet, [facility] #[id number], Partial fill upon patient request if the prescription is for a schedule II opioid drug., 160, cm, 02/23/24 13:31:00 EDT, Height, 67.5, kg, 02/23/24 13:31:00 EDT, Dry Weight Start Date: 02/23/24 Stop Date: 03/22/24 Status: Ordered Quantity: 56.0 Unit: tablet Repeat number: 1 Diflucan 150 mg oral tablet 1 tablet = 150 mg, By Mouth, Once, # 1 tablet, 0 Refills, Soft Stop, 11/27/24 11:22:00 AM EDT, Tablet, [facility] #[id number], Partial fill upon patient request if the prescription is for a schedule II opioid drug., 160, cm, 11/27/24 10:54:00 EDT, Height, 67.9, kg, 04/19/24 13:50:00 EDT, Dry Weight Start Date: 11/27/24 Status: Ordered Quantity: 1.0 Unit: tablet Repeat number: 1 DULoxetine 40 mg oral delayed release capsule 1 capsule = 40 mg, By Mouth, Daily, 0 Refills, Maintenance, 10/16/24 10:37:00 AM EDT, Partial fill upon patient request if the prescription is for a schedule II opioid drug. Start Date: 10/16/24 Status: Ordered Repeat number: 1 EPINEPHrine 0.3 mg injectable solution = 0.3 mg, Intramuscular, Once, As needed for life threatening allergic reaction, # 1 each, 1 Refills, Soft Stop, 10/16/24 10:54:00 AM EDT, [facility] #[id number], dispense autoinjector, 160, cm, 10/16/24 10:39:00 EDT, Height, 67.9, kg, 04/19/24 13:50:00 EDT, Dry Weight Start Date: 10/16/24 Status: Ordered Quantity: 1.0 Unit: each Repeat number: 2 escitalopram 10 mg oral tablet 1 tablet = 10 mg, By Mouth, Daily, 0 Refills, Maintenance, 10/16/24 10:38:00 AM EDT, Partial fill upon patient request if the prescription is for a schedule II opioid drug. Start Date: 10/16/24 Status: Ordered Repeat number: 1 escitalopram 5 mg oral tablet 2 tablet = 10 mg, By Mouth, Daily, 0 Refills, Maintenance, 10/16/24 10:38:00 AM EDT, Partial fill upon patient request if the prescription is for a schedule II opioid drug. Start Date: 10/16/24 Status: Ordered Repeat number: 1 levETIRAcetam 500 mg oral tablet 2 tablet, By Mouth, 2 times a day, # 360 tablet, 1 Refills, Maintenance, 11/19/24 6:54:00 PM EDT, [facility] #[id number], 160, cm, 10/16/24 10:39:00 EDT, Height, 67.9, kg, 04/19/24 13:50:00 EDT, Dry Weight Start Date: 11/19/24 Stop Date: 05/18/25 Status: Ordered Quantity: 360.0 Unit: tablet Repeat number: 2 loperamide 2 mg oral capsule 1, capsule, By Mouth, Every 4 hours, PRN, # 30 capsule, Refills 0, Tot. Refills 0, Maintenance, NEEDED FOR LOOSE STOOLS, 12/24/24 1:21:00 PM EDT, Route to Pharmacy Electronically, [facility] #[id number], 160, cm, 11/27/24 12:19:00 EDT, Height, 67.9, kg, 04/19/24 13:50:00 EDT, Dry Weight Start Date: 12/24/24 Status: Ordered Quantity: 30.0 Unit: capsule Repeat number: 1 montelukast 10 mg oral tablet 1, tablet, By Mouth, Daily, # 90 tablet, Refills 1, Tot. Refills 1, Maintenance, 10/08/24 4:04:00 PMEDT, Route to Pharmacy Electronically, [facility] #[id number], 160, cm, 08/01/24 11:48:00 EST,Height, 67.9, kg, 04/19/24 13:50:00 EDT, Dry Weight Start Date: 10/08/24 Status: Ordered Quantity: 90.0 Unit: tablet Repeat number: 2 olanzapine 5 mg oral tablet 2.5 mg, [...] Daily, # 90 capsule, 0 Refills, Maintenance, 10/15/24 3:33:00 PM EDT, [facility] #[id number], 160, cm, 08/01/24 11:48:00 EST, Height, 67.9, kg, 04/19/24 13:50:00 EDT, Dry Weight Start Date: 10/15/24 Status: Ordered Quantity: 90.0 Unit: capsule Repeat number: 1 ondansetron 8 mg oral tablet 1 tablet = 8 mg, By Mouth, 3 times a day, for 30 days, # 90 tablet, 5 Refills, Acute 04/14/25 2:04:00 PM EDT, 10/16/24 2:04:00 PM EDT, Tablet, [facility] #[id number], Partial fill upon patient request if the prescription is for a schedule II opioid drug., 160, cm, 10/16/24 10:39:00 EDT, Height, 67.9, kg, 04/19/24 13:50:00 EDT, Dry Weight Start Date: 10/16/24 Stop Date: 04/14/25 Status: Ordered Quantity: 90.0 Unit: tablet Repeat number: 6 oxyCODONE 10 mg oral tablet 1 tablet = 10 mg, By Mouth, Every 6 hours, 0 Refills, Maintenance, 06/13/24 10:24:00 AM EST, Partialfill upon patient request if the prescription is for a schedule II opioid drug. Start Date: 06/13/24 Status: Ordered Repeat number: 1 scopolamine 1 mg/72 hr transdermal film, extended release See Instructions, 1 patch Every 72 hours, # 5 each, 0 Refills, Maintenance, 10/16/24 6:14:00 PM EDT, [facility] #[id number], Partial fill upon patient request if the prescription is for a scheduleII opioid drug., 1 patch Every 72 hours, 160, cm, 10/16/24 10:39:00 EDT, Height, 67.9, kg, 04/19/2413:50:00 EDT, Dry Weight Start Date: 10/16/24 Status: Ordered Quantity: 5.0 Unit: each Repeat number: 1 SUMAtriptan 100 mg oral tablet See Instructions, PRN for migraine headache, 1 tablet By Mouth prn for migraine ROLLE may repeat dose in 2 hours if needed, # 9 tablet, 11 Refills, Maintenance, 04/06/23 8:42:00 AM EDT, Tablet, [facility] #[id number], Partial fill upon patient request if the [...] Laryngeal cancer Confirmed Active Migraines Confirmed Active Paroxysmal atrial fibrillation Confirmed Active Greater saphenous vein incompetence (per Cardiol) Confirmed Active Hypoglycemia after GI (gastrointestinal) surgery Confirmed Active Post traumatic stress disorder (PTSD) Confirmed Active Renal failure Confirmed Active Seizure Confirmed Active 1Per chart review meeting GFR criteria Social History Social History Type Response Smoking Status Former smoker, quit more than 30 days ago entered on: 06/21/18 Sex Sex Representation Female (finding) Patient Care team information Care Team Personnel Name: Nichole Hammer Position: [facility] Onco RN Member Role: Primary Care Nurse Name: Hallie Francisco RN Position: S RN Member Role: Primary Care Nurse Name: Ailin Araujo MD Position: [facility] Physician - Primary Care Member Role: PCP Address: [address] [place], [place] [address] [address]- [place] Telecom: Name: Enid Stein RN Position: [facility] RN Member Role: Primary Care Nurse Name: Danuta Canela RN Position: [facility] ED RN W/OE and Tasks Member Role: Primary Care Nurse Name: Francisca Galicia RN Position: [facility] RN Member Role: Primary Care Nurse Name: Marbin Dowd MD Position: [facility] Renal MD Member Role: Lifetime Consulting Physician Address: [address] [place] [address] [address] [place] [address]- [place] Telecom: Name: Ashleigh Appiah RN Position: [facility] RN Member Role: Primary Care Nurse Name: Zehra Bledsoe RN Position: [facility] RN Member Role: Primary Care Nurse Name: Loren Hatch RN Position: [facility] RN Member Role: Primary Care Nurse Name: Francisco Trevino RN Position: [facility] RN Member Role: Primary Care Nurse Name: Radha Tesfaye NP Position: [facility] Associate Professional Member Role: Primary Care Nurse Address: [address] [place] [address]- [place] Tele[employer]: Name: Shabnam Diaz RN Position: [facility] RN Member Role: Primary Care Nurse Name: Hoa Melgar MD Position: [facility] INFECTION CONTROL PRACTITIONER MD Member Role: Lifetime INFECTION CONTROL PRACTITIONER Physician Address: [address] [place] [address] [place] [address]- [place] Telecom: Name: Inge Chavira RN Position: [facility] RN Member Role: Primary Care Nurse Name: Salina Whitney RN Position: [facility] Onco RN Member Role: Primary Care Nurse Name: Geri Gavin RN Position: [facility] [place] Aide Member Role: Primary Care Nurse Name: Joan Kelly RN Position: [facility] RN Member Role: Primary Care Nurse Name: Melanie Lopez RN Position: [facility] RN Member Role: Primary Care Nurse Name: Danielle Garcia RN Position: [facility] RN Supv Member Role: Primary Care Nurse Name: Angelika Guajardo RN Position: [facility] AMB Nurse Member Role: Primary Care Nurse Name: Tamela Short RN Position: [facility] RN Member Role: Primary Care Nurse Name: Willard Vazquez RN Position: [facility] Onco RN Member Role: Primary Care Nurse Name: Orlando Persaud MD Position: [facility] Renal MD Member Role: Lifetime Consulting Physician Address: [address] [place], [place] [id number] [facility] [address] Telecom: Name: Nicolas Burnett RN Position: [facility] RN Member Role: Primary Care Nurse Name: Ailin Reeves RN Position: [facility] RN Member Role: Primary Care Nurse Name: Sandra Villalta RN Position: [facility] [place] Aide Member Role: Primary Care Nurse Care Team Related Persons Name: MAIK RODRIGEZ Name: ORLANDO EUCEDA Name: JOANNA EUCEDA Name: AILIN EUCEDA Name: LAMONTE EUCEDA Name: SHANNAN AGUILLON Insurance Providers Guarantor name: BRIANDAAsim EUCEDA Health Plan Information #: 1 Payer: MEDICARE B Payer Identifier: Member Number: [id number] Group Number: Subscriber Identifier: [id number] Relationship to Subscriber: self Coverage Type: NA Coverage Verification Date: NA Telecom: NA Address: Health Plan Information #: 2 [facility] Payer Identifier: Member Number: [id number] Group Number: Subscriber Identifier: [id number] Relationship to Subscriber: self Coverage Type: MEDICAID Coverage Verification Date: Telecom: Address:
[2025-01-16 10:28] VITALS: BP 108/78; PULSE 77; O2SAT 97; BMI 27.4
--- NOTE | 2025-01-16 10:28 | HO.NEPHOV ---
Vital Signs 01/16/25 10:28 Height 5 ft 2 in Weight 150 lb BMI 27.4 BP 108/78 Blood Pressure Location Rt brachial Position Sitting Pulse 77 Pulse Source Pulse Oximeter Pulse Oximetry (%) 97 Oxygen Delivery Method Room Air Intake Visit Reasons: 4 [facility] Room Service Server Required: No Accompanied by: Self / Same As Patient Allergies bee pollen (Bee Stings) Allergy (Severe, Verified 01/16/25 10:30) ANAPHYLAXIS codeine (Codeine) Allergy (Severe, Verified 01/16/25 10:30) ANAPHYLAXIS macadamia nut Allergy (Severe, Verified 01/16/25 10:30) Anaphylaxis Penicillins Allergy (Severe, Verified 01/16/25 10:30) Anaphylaxis Sulfa (Sulfonamide Antibiotics) Allergy (Severe, Verified 01/16/25 10:30) Anaphylaxis sulfamethoxazole (From Bactrim) Allergy (Severe, Verified 01/16/25 10:30) Anaphylaxis trimethoprim (From Bactrim) Allergy (Severe, Verified 01/16/25 10:30) Anaphylaxis aspirin (ASA) Allergy (Verified 01/16/25 10:30) Unknown ciprofloxacin (From Cipro) Allergy (Verified 01/16/25 10:30) Rash Iodinated Contrast Media (Contrast Dye) Allergy (Verified 01/16/25 10:30) Hives latex Allergy (Verified 01/16/25 10:30) Rash HPI Comments Details: Jayda was seen for her chronic kidney disease. Her seizures had been better controlled but had relapse with seizures after she was initiated on wellbutryin . She remains on Bumex dose 0.5 mg twice daily. Her breast cancer is closely monitored by [facility]. She denies any chest pain, shortness of breath, nausea, vomiting, diarrhea, weight gain, orthopnea or paroxysmal nocturnal dyspnea. She is not taking any nonsteroidal anti-inflammatory medications. She had no orthostatic symptoms. Her BP has been high and her midodrine has been put on hold. She has history of atrial fibrillation which has been under control [facility] Medical History (Updated 11/21/24 @ 00:01 by Suzie Hernandez) Accidental medication overdose Altered mental state Hypotension Orthostatic hypotension Seizure disorder History of prolonged Q-T interval on ECG Psychogenic nonepileptic seizure CKD (chronic kidney disease) stage 3, GFR 30-59 ml/min COPD (chronic obstructive pulmonary disease) GERD (gastroesophageal reflux disease) Port-A-Cath in place Malabsorption Compression fracture of C3 vertebra Self-catheterizes urinary bladder Neuropathy SIADH (syndrome of inappropriate ADH production) Chronic anemia Enlarged liver Enlarged heart History of atrial fibrillation Polysubstance abuse Von Willebrand disease Factor V deficiency Depression Uterine cancer Breast cancer Migraines Asthma Seizure Surgical History H/O knee surgery Hx of cholecystectomy History of hysterectomy H/O gastric bypass Social History Household Members: Children Household Members Other:: One son Housing: House Housing Other:: House has ramps Do you presently have visiting nurse or other home services: No Unable to assess alcohol history related to: Unknown Alcohol intake: unknown Comment: 1:1 Sitter at bedside Patient Tobacco Use Status: Never used Tobacco Tobacco use type: Cigarette Cigarettes Per Day: 2 e-Cigarette/Vaping Use: Never Used service: No Review of Systems Const All systems reviewed & are unremarkable except as noted in HPI and below Physical Exam Vital Signs: Last Vital Signs Pulse 77 01/16/25 10:28 BP 108/78 01/16/25 10:28 Pulse Ox 97 01/16/25 10:28 Oxygen Delivery Method Room Air 01/16/25 10:28 BMI result Body Mass Index 27.4 Const General: comfortable and no acute distress Orientation/consciousness: patient oriented x3 HEENT Head: Yes normocephalic Mouth: Normal oral and palatal mucosa present Eyes EOM: EOMs intact bilaterally Neck Neck: Yes supple Resp Auscultation: clear to auscultation bilaterally Cardio Jugular venous distension: no JVD Rate: regular rate GI Palpation (GI): Soft to palpation Auscultation: normal bowel sounds General: Yes no CVA tenderness Back/Spine/Pelvis Back: no CVA tenderness Skin General skin exam: no rashes or lesions noted Neuro General: patient oriented x3 and moves all extremities Extrem General: Yes no pedal edema Results Reviewed Nephrology Results: Hgb, (12.0-16.0) 11.2 g/dl L 11/16/24 WBC, (4.8-10.8) 6.9 X10*3/uL 11/16/24 Plt Count, (160-400) 188 X10*3/uL 11/16/24 Sodium, (135-145) 141 mmol/L 12/28/24 Potassium, (3.3-5.1) 4.1 mmol/L 12/28/24 Chloride, (96-108) 108 mmol/L 12/28/24 Carbon Dioxide, (22-29) 24 mmol/L 12/28/24 BUN, (9-16) 33 mg/dL H 12/28/24 Creatinine, (0.5-1.4) 1.08 mg/dL 12/28/24 Calcium, (8.4-10.2) 9.7 mg/dL Δ 12/28/24 Urine Protein, (Neg-Trace) Trace mg/dL 11/14/24 Assessment & Plan Assessment & Plan (1) CKD stage 3a, GFR 45-59 ml/min: Code(s): N18.31 - Chronic kidney disease, stage 3a Category: Medical (2) Orthostatic hypotension: Code(s): I95.1 - Orthostatic hypotension Category: Medical Plan Jayda has chronic kidney disease . Her serum creatinine is stable. Her volume status got optimized and is on Bumex 0.5 mg twice daily. She can have 2 mg if needed if she has excess swelling while on Bumex 0.5 mg daily. She is not consuming excess salt. I asked her not to take excessive diuretics. Her midodrine is on hold. She is followed by cardiology for H/O A Fib. She is avoiding nonsteroidal anti-inflammatory medications. She should maintain good hydration. I asked her to repeat blood work soon. She will be seen in office in follow-up Orders: Orders Blood Urea Nitrogen 3 Months I95.1 - Orthostatic hypotension, N18.31 - Chronic kidney disease, stage 3a Creatinine 3 Months I95.1 - Orthostatic hypotension, N18.31 - Chronic kidney disease, stage 3a Electrolytes 3 Months I95.1 - Orthostatic hypotension, N18.31 - Chronic kidney disease, stage 3a Coding Level of Care Code Est Pt Level 4 (43410) Diagnoses CKD stage 3a, GFR 45-59 ml/min N18.31 Orthostatic hypotension I95.1
--- OUTSIDE RECORDS SUMMARY | 2025-01-16 11:07 | XMS_ITS | Clinical Summary ---
Author Organization [employer] Address [address] [place] [address] [address] [place] [address] Care Team Providers Care Walnut Dehydrator Operator Name Role Phone Unavailable Primary Care [...] Panel 1965 SDOH Screening 1965 Sigmoidoscopy 1965 Disability Screening 1965 Alcohol/Substance Use Screening 1977 Tobacco Screening 1977 Hepatitis C Screening 1983 Pap Smear 1986 Cervical Cancer Screening 1995 HPV/Cotest 1995 Hepatitis B Vaccines (2 of 3 - Hep B Twinrix 3-dose series) 01/17/2013 12/20/2012 Zoster Vaccines (1 of 2) 2015 Pneumococcal Vaccine: 50+ Years (2 of 2 - PCV) 04/03/2015 04/03/2014, 02/23/2000 COVID-19 Vaccine (5 - season) 2024 04/03/2022, 06/24/2021, 10/15/2020, Additional history exists Influenza Vaccine (#1) 2025 , 04/03/2022, 05/20/2021, Additional history exists DTaP/Tdap/Td [...] patient's age to complete this topic Insurance [facility] STAND ADULT
--- OUTSIDE RECORDS SUMMARY | 2025-01-16 11:07 | XMS_ITS | Clinical Summary ---
Author Organization [facility] Address [address] [place] [id number] Phone Care Team Providers Care Business Librarian Name Role Phone Ailin Araujo MD Primary Care Provider [phone] Allergies No known active allergies Medications bumetanide (BUMEX) 0.5 mg tablet Take 1 tablet (0.5 mg total) by mouth 2 (two) times a day. Active buPROPion SR (WELLBUTRIN SR) 200 mg 12 hr tablet Take 1 tablet (200 mg total) by mouth 1 (one) time each day in the morning. 09/18/2024 Active clonazePAM (KlonoPIN) 0.5 mg tablet Take 1 tablet (0.5 mg total) by mouth 2 (two) times a day if needed. for anxiety Active DULoxetine (CYMBALTA) [address] capsule Take 2 capsules (40 mg total) by mouth 1 (one) time each day. 08/29/2024 Active escitalopram (LEXAPRO) 10 mg tablet Take 1 tablet (10 mg total) by mouth 1 (one) time each day. Active escitalopram (LEXAPRO) 5 mg tablet Take 1 tablet (5 mg total) by mouth 1 (one) time each day. 09/06/2024 Active levETIRAcetam (KEPPRA) 500 mg tablet Take 2 tablets (1,000 mg total) by mouth 2 times daily. 06/17/2022 02/25/20 25 Active midodrine (PROAMATINE) 5 mg tablet Take 1 tablet (5 mg total) by mouth 2 (two) times a day. Active montelukast (SINGULAIR) 10 mg tablet Take 1 tablet (10 mg total) by mouth daily. 02/15/2023 Active omeprazole (PriLOSEC) [address] capsule [...] every 6 (six) hours if needed (migraine). 08/06/2024 Active albuterol HFA (PROAIR HFA ; PROVENTIL HFA ; VENTOLIN HFA) 90 mcg/actuation inhaler Inhale 1 puff by mouth Every 4 hours as needed. 09/25/2013 Active loperamide (IMODIUM) 2 mg capsule Take 1 capsule (2 mg total) by mouth 2 times daily as needed. 02/15/2023 Active Active Problems Problem Noted Date Diagnosed Date Seizure-like activity ([facility] V24, CMS/[facility] V28) 10/01/2024 Surgical History Surgery Date Site/Laterality Comments HYSTERECTOMY Medical History Medical History Date Comments Seizure disorder (CMS/HCC V24, CMS/[facility] V28) CKD (chronic kidney disease) History of migraine headaches Breast cancer (CMS/HCC V24, CMS/HCC V28) Uterine cancer (CMS/HCC V24, CMS/HCC V28) Asthma Orthostatic hypotension Venous insufficiency History of anemia due to chronic kidney disease Migraine headache PTSD (post-traumatic stress disorder) Bipolar disorder (CMS/[facility] V24, CMS/[facility] V28) Social History Tobacco Use Types Packs/Day [...] Record ed Within the last 3 months, sinan silverman many times did you visit the emergency [...] for your loved ones. For example, children's counselor or elderly care for an older adult? [...] 59 10/03/2024 7:29 AM EDT Temperature 36.4 C (97.6 F) 10/03/2024 7:29 AM EDT Respiratory Rate 18 10/03/2024 7:29 AM EDT [...] and At-Risk Patients (6 to 49 Years) (3 of 3 - PCV) 04/03/2015 04/03/2014, 02/23/2000 Colorectal Cancer Screening: Colonoscopy 10/02/2024 Depression Screening 10/02/2024 HIV Screening 10/02/2024 Hepatitis C Screening 10/02/2024 Medicare Annual Wellness Visit 10/02/2024 COVID-19 Vaccine (8 - Pfizer risk season) 2024 05/25/2024, 05/06/2023, 04/03/2022, Additional history exists Social Influencers of Health Screening 10/02/2025 10/02/2024 Hypertension/CHF/CAD Annual BMP Blood Test 11/22/2025 11/22/2024, 10/03/2024, 10/02/2024, Additional history exists Cholesterol Screening (Lipid Panel) [...] Procedure Name Priority Date/Time Associated Diagnosis Comments BASIC METABOLIC PANEL Routine 10/03/2024 5:51 AM EDT from Last 3 Months or Most Recently Relevant to Health Maintenance Insurance MEDICARE [place]ICAID - [place] Advance Directives [...] currently active code status orders. Care Teams Business Librarian Relationship Specialty Start Date End Date Ailin Araujo MD [address] [place] [address], [address] [place] [address] PCP - General Family Medicine 10/01/24
--- OUTSIDE RECORDS SUMMARY | 2025-01-16 11:07 | XMS_ITS | Patient Health Record ---
Author Organization [facility] Address [address] [place] [address] Care Team Providers Care Pump Operator Name Role Phone [place] Ailin Primary Care Provider Lefty Thomas Unavailable [phone] Allergies Allergen (clinical drug ingredient) Drug/Non Drug [...] Active Botox Active Procrit Active Spinal Introducer [id number]/4 Active Tamoxifen Citrate 10 MG Oral; Duration: 30 Active vitamin Active Glucophage Active oxyCODONE HCl 15 MG Oral; Duration: 14 Active Fluconazole 150 MG Oral; Duration: 1 Not-Taking Spiriva HandiHaler 18 MCG Inhalation; Du ration: 30 Not-Taking Insulin Active Glucotrol Active OXcarbazepine 600 MG Oral; Duration: 30 Not-Taking SUMAtriptan Succinate 100 MG Oral; Duration: 30 Not-Takin g Citalopram Hydrobromide 20 MG Oral; Duration: 30 Not-Takin g Benztropine Mesylate 0.5 MG Oral; Duration: 30 Not-Taking Methylphenidate HCl 10 MG Oral; Duration: 30 Not-Taking clonazePAM 1 MG Oral; Duration: 30 Not-Taking Cogentin Active Cyclobenzaprine HCl 10 MG Oral; Duration: 30 Not-Taking Trileptal Active Omeprazole 20 MG Oral; Duration: 30 Not-Taking Cipro 500 MG 1 tablet Orally Twic e a day; Duration: 10 day(s) 09/26/2015 Active CeleXA Active Depakote Active Ibuprofen 800 MG Oral; Duration: 30 Not-Taking KlonoPIN Active Problems Problem Type SNOMED Code ICD Code Onset Dates Problem Status W/U Status Risk Notes Problem Pain in limb (36023055) Pain in unspecified foot (M79.673) Active confirmed Problem Neurological disorder associated with type I diabetes mellitus (681778329) 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 Plan Of Treatment Pending Test Test Name Order Date X ray : Foot, left 2V 06/16/2015 X ray : Foot, right 2V 06/16/2015 [id number] NAIL, 1-5 06/16/2015 [id number] Plate 09/26/2015 [id number]- Debride <25 sq cm 07/14/2015 [id number] SKIN LESIONS, OVER 4 06/16/20 15 [id number] SKIN LESIONS, 2 TO 4 09/26/19 16 Insurance Providers Payer Name Payer Address Payer Phone Subscriber Number Group Number Insured Name Patient Relationship to Insured Coverage Start Date Coverage End Date Medicare [employer] [address] [facility] [place] [address] [phone] [id number] Liana Moser Self - patient is the insured Medical (General) History Medical History History ICD Code Anemia Anxiety Arthritis Back,Hip,and Knee pain Cancer Depression Diabetic Migraines Nerve disease Neuropathy Chicken pox Measles Poor circulation Psychiatric disorder Sciatica Transfusions Seizures Surgical History Surgery Date(Month/Year) hysterectomy lumpectomy cholecystectomy gastric bypass
--- OUTSIDE RECORDS SUMMARY | 2025-01-16 11:07 | XMS_ITS | Encounter Summary ---
Author Organization [facility] Address [address] [place] [address] Phone Care Team Providers Care Automotive Professional Name Role Phone Ailin Araujo MD Primary Care Provider [phone] Encounter Details Date Type Department Care Team (Late st Contact Info) Description 04/15/2022 Telephone [facility] [address] [place] [address] Marbin Dowd MD Social History [...] in March due to being Hospitalized in [place]. A follow up is already scheduled for her. documented in this encounter Plan of Treatment Not on file documented as of this encounter Visit Diagnoses Not on filedocumented in this encounter Care Teams Automotive Professional Relationship Specialty Start Date End Date Ailin Araujo MD [address] [place] [address] PCP - General 07/21/20 documented as of this encounter
== END 2025-01-16 10:48 | disposition home or self-care (01) ==
LOC: HO.HKA 10:18
PROVIDERS: PCP Family Medicine; Visit Provider Internal Medicine Nephrology
DX: N18.31 Chronic kidney disease, stage 3a (principal); I95.1 Orthostatic hypotension
CPT/HCPCS: 99214

== ENCOUNTER → 2025-01-16 10:18 | Outpatient (BNVA) | payer MEDICARE, MEDICAID, SELFPAY | PROVIDERS: PCP Family Medicine; Visit Provider Internal Medicine Nephrology | DX: I95.1 Orthostatic hypotension (principal); N18.31 Chronic kidney disease, stage 3a | CPT/HCPCS: 99212 ==

== ENCOUNTER 2025-04-26 11:39 | Outpatient (AMB) | payer MEDICARE, MEDICAID, SELFPAY ==
--- OUTSIDE RECORDS SUMMARY | 2014-01-03 | XMS_ITS | Encounter Summary ---
Author Organization [facility] Address [address] [place] [address] Phone Care Team Providers Care Community Arts Worker Name Role Phone Unavailable Primary Care Provider Unavailabl e Encounter Details Date Type Department Care Team (Late st Contact Info) Description 01/03/2014 Hospital Encounter [facility] General Imaging [address] [place] [address] Nancy Cardenas MD, MBBS [address] [phone] JUAN [email or web address] Social History Tobacco Use Types Packs/Day Years [...] PM EDT documented as of this encounter Functional Status * Calculated C-SSRS Risk Score (Lifetime/Recent) Answer Date of Assessment Author No Risk Indicated 11/22/2024 12:21 AM EDT Heather Lopez RN * [place] Suicide Severity Rating Scale (Screener/Recent Self-Report) Question Answer Date of Assessment Author 1. Wish to be (Past 1 Month) No 11/22/2024 12:21 AM EDT Heather Lopez RN 2. Non-Specific Active Suicidal Thoughts (Past 1 Month) No 11/22/2024 12:21 AM EDT Heather Lopez RN 6. Suicidal Behavior (Lifetime) No 11/22/2024 12:21 AM EDT Heather Lopez RN 6. Suicidal Behavior (3 Months) Yes 01/07/2023 8:15 PM EDT Erin Siddiqui RN documented as of this encounter Plan of Treatment Upcoming Encounters Date Type Department Care Team (Late st Contact Info) Description 06/03/2025 11:00 AM EST Office Visit [facility] Neurology [address] [place] [address] Natalie Syed FNP 15 [facility], 2nd [place] [address] [email or web address] 12/18/2025 11:30 AM EDT Office Visit [facility] [address] [facility] 3rd Floor, [address] [place] [address] Angelic Cesar DNP 22 [facility], [address] [address] [email or web address] documented as of this encounter Procedures Procedure Name Priority Date/Time Associated Diagnosis Comments CT HEAD OUTSIDE (NO INTERPRETATION) Routine 01/03/2014 12:00 AM EDT documented in this encounter Results * CT Head Outside (No Interpretation) (01/03/2014 12:00 AM EDT) Narrative [facility]G INTERFACES - 01/13/2017 3:47 PM EDT This study is for PACS storage only and not for interpretation. us Nancy Cardenas MD, MAGDALENA IMG OUTSIDE IMAGING W/OUT INTERPRETATION Final Result [facility] IM INTERFACES documented in this encounter Visit Diagnoses [...] It is not the complete legal health record.[facility]
--- OUTSIDE RECORDS SUMMARY | 2014-04-28 | XMS_ITS | Encounter Summary ---
Author Organization [facility] Address [address] [place] [phone] Phone Care Team Providers Care Rate Clerk Passenger Name Role Phone Unavailable Primary Care Provider Unavailabl e Encounter Details Date Type Department Care Team (Late st Contact Info) Description 04/28/2014 Hospital Encounter [facility] General Imaging [address] [place] [address] Nancy Cardenas MD, MBBS [address] [phone] JUAN [email or web address] Social History Tobacco Use Types Packs/Day [...] 12:21 AM EDT Heather Lopez RN * [place] Suicide Severity Rating Scale (Screener/Recent Self-Report) Question [...] Description 06/03/2025 11:00 AM EST Office Visit [facility] Neurology [address] [place] [address] Natalie Syed FNP 15 [facility], 2nd [place] [address] [email or web address] 12/18/2025 11:30 AM EDT Office Visit [facility] [address] [facility] 3rd Floor, [address] [place] [address] Angelic Cesar DNP 22 [facility], [address] [address] [email or web address] documented as of this encounter Procedures Procedure Name Priority Date/Time Associated Diagnosis Comments CT HEAD OUTSIDE (NO INTERPRETATION) Routine 04/28/2014 12:00 AM EDT documented in this encounter Results * CT Head Outside (No Interpretation) (04/28/2014 12:00 AM EDT) Narrative [facility] INTER[facility]AC[facility] - 01/13/2017 3:47 PM EDT This study is for PACS storage only and not for interpretation. us Nancy Cardenas MD, MAGDALENA IMG OUTSIDE IMAGING W/OUT INTERPRETATION Final Result [facility] INTERFACES documented in this encounter Visit [...] It is not the complete legal health record.[facility]
--- OUTSIDE RECORDS SUMMARY | 2015-04-07 | XMS_ITS | Encounter Summary ---
Author Organization [facility] Address [address] [place] [address] Phone Care Team Providers Care Uniformer Name Role Phone Unavailable Primary Care Provider Unavailabl e Encounter Details Date Type Department Care Team (Late st Contact Info) Description 04/07/2015 Hospital Encounter [facility] General Imaging [address] [place] [address] Nancy Cardenas MD, MBBS [address] [phone] JUAN [email or web address] Social History Tobacco Use Types Packs/Day [...] 12:21 AM EDT Heather Lopez RN * [place] Suicide Severity Rating Scale (Screener/Recent Self-Report) Question [...] Description 06/03/2025 11:00 AM EST Office Visit [facility] Neurology 22 [place] [address] Natalie Syed FNP [address] [facility], 2nd [place] [address] [email or web address] 12/18/2025 11:30 AM EDT Office Visit [facility] [address] [facility] 3rd Floor, [address] [place] [address] Angelic Cesar DNP 22 [facility], [address] [address] [email or web address] documented as of this encounter Procedures Procedure Name Priority Date/Time Associated Diagnosis Comments CT HEAD OUTSIDE (NO INTERPRETATION) Routine 04/07/2015 12:00 AM EDT documented in this encounter Results * CT Head Outside (No Interpretation) (04/07/2015 12:00 AM EDT) Narrative [facility] IMG INTERFACES - 01/13/2017 3:46 PM EDT This study is for PACS storage only and not for interpretation. us Nancy Cardenas MD, MAGDALENA IMG OUTSIDE IMAGING W/OUT INTERPRETATION Final Result [facility] IM INTERFACES documented [...]
--- OUTSIDE RECORDS SUMMARY | 2015-11-25 | XMS_ITS | Encounter Summary ---
Author Organization [facility] Address [address] [place] [address] Phone Care Team Providers Care Bindery Helper Name Role Phone Unavailable Primary Care Provider Unavailabl e Encounter Details Date Type Department Care Team (Late st Contact Info) Description 11/25/2015 Hospital Encounter [facility] General Imaging [address] [place] [address] Nancy Cardenas MD, MBBS [address] [phone] JUAN [email or web address] Social History Tobacco Use Types [...] 12:21 AM EDT Heather Lopez RN * [place] Suicide Severity Rating Scale (Screener/Recent Self-Report) Question [...] Description 06/03/2025 11:00 AM EST Office Visit [facility] Neurology 22 [place] [address] Natalie Syed FNP [address] [facility], 2nd [place] [address] [email or web address] 12/18/2025 11:30 AM EDT Office Visit [facility] 22 [facility] 3rd Floor, [address] [place] [address] Angelic Cesar DNP 22 [facility], [address] [address] [email or web address] documented as of this encounter Procedures Procedure Name Priority Date/Time Associated Diagnosis Comments CT HEAD OUTSIDE (NO INTERPRETATION) Routine 11/25/2015 12:00 AM EDT documented in this encounter Results * CT Head Outside (No Interpretation) (11/25/2015 12:00 AM EDT) Narrative [facility] - 01/13/2017 3:46 PM EDT This study is for PACS storage only and not for interpretation. us Nancy Cardenas MD, MAGDALENA IMG OUTSIDE IMAGING W/OUT INTERPRETATION Final Result [facility]AC[facility] documented in this encounter Visit [...] It is not the complete legal health record.[facility]
--- OUTSIDE RECORDS SUMMARY | 2016-01-02 | XMS_ITS | Encounter Summary ---
Author Organization [facility] Address [address] [place] [address] Phone Care Team Providers Care Button Cutter Name Role Phone Unavailable Primary Care Provider Unavailabl e Encounter Details Date Type Department Care Team (Late st Contact Info) Description 01/02/2016 Hospital Encounter [facility] Imaging [address] [place] [address] Nancy Cardenas MD, MBBS [address] [phone] JUAN [email or web address] Social History Tobacco Use Types Packs/Day Years [...] 12:21 AM EDT Heather Lopez RN * [place] Suicide Severity Rating Scale (Screener/Recent Self-Report) Question [...] Description 06/03/2025 11:00 AM EST Office Visit [facility] Neurology 22 [place] [address] Natalie Syed FNP 15 [facility], 2nd [place] [address] [email or web address] 12/18/2025 11:30 AM EDT Office Visit [facility] 22 [facility] 3rd Floor, [address] [place] [address] Angelic Cesar DNP 22 [facility], [address] [address] [email or web address] documented as of this encounter Procedures Procedure Name Priority Date/Time Associated Diagnosis Comments CT HEAD OUTSIDE (NO INTERPRETATION) Routine 01/02/2016 12:00 AM EDT documented in this encounter Results * CT Head Outside (No Interpretation) (01/02/2016 12:00 AM EDT) Narrative [facility] IMG INTERFACES - 01/13/2017 3:46 PM EDT This study is for PACS storage only and not for interpretation. us Nancy Cardenas MD, MAGDALENA IMG OUTSIDE IMAGING W/OUT INTERPRETATION Final Result [facility] IM INTERFACES documented in this encounter Visit [...] It is not the complete legal health record.[facility]
--- OUTSIDE RECORDS SUMMARY | 2016-02-24 | XMS_ITS | Encounter Summary ---
Author Organization [facility] General [facility] Address [address] [place] [address] Phone Care Team Providers Care Urology Surgeon Name Role Phone Unavailable Primary Care Provider Unavailabl e Encounter Details Date Type Department Care Team (Late st Contact Info) Description 02/24/2016 Hospital Encounter [facility] General Imaging [address] [place] [address] Nancy Cardenas MD, MBBS [address] [phone] JUAN [email or web address] Social History Tobacco Use Types Packs/Day [...] 12:21 AM EDT Heather Lopez RN * [place] Suicide Severity Rating Scale (Screener/Recent Self-Report) Question [...] Description 06/03/2025 11:00 AM EST Office Visit [facility] Neurology [address] [place] [address] Natalie Syed FNP 15 [facility], 2nd [place] [address] 12/18/2025 11:30 AM EDT Office Visit [facility] 22 [facility] 3rd Floor, [address] [place] [address] Angelic Cesar DNP 22 [facility], [address] [address] documented as of this encounter Procedures Procedure Name Priority Date/Time Associated Diagnosis Comments CT HEAD OUTSIDE (NO INTERPRETATION) Routine 02/24/2016 12:00 AM EDT documented in this encounter Results * CT Head Outside (No Interpretation) (02/24/2016 12:00 AM EDT) Narrative [facility] [place] - 01/13/2017 3:46 PM EDT This study is for PACS storage only and not for interpretation. us Nancy Cardenas MD, MAGDALENA IMG OUTSIDE IMAGING W/OUT INTERPRETATION Final Result [facility] [place] IM INTERFACES documented [...] It is not the complete legal health record.[facility]
--- OUTSIDE RECORDS SUMMARY | 2016-03-26 | XMS_ITS | Encounter Summary ---
Author Organization [facility] General [facility] Address [address] [place] [address] Phone Care Team Providers Care Director Public Name Role Phone Unavailable Primary Care Provider Unavailabl e Encounter Details Date Type Department Care Team (Late st Contact Info) Description 03/26/2016 Hospital Encounter [facility] General Imaging [address] [place] [address] Nancy Cardenas MD, MBBS [address] [phone] JUAN [email or web address] [email or web address] Social History Tobacco Use Types Packs/Day [...] 12:21 AM EDT Heather Lopez RN * [place] Suicide Severity Rating Scale (Screener/Recent Self-Report) Question [...] Description 06/03/2025 11:00 AM EST Office Visit [facility] Neurology 22 [place] [address] Natalie Syed FNP 15 [facility], 2nd [place] [address] [email or web address] 12/18/2025 11:30 AM EDT Office Visit [facility] 22 [facility] 3rd Floor, [address] [place] [address] Angelic Cesar DNP 22 [facility], [address] [address] [email or web address] documented as of this encounter Procedures Procedure Name Priority Date/Time Associated Diagnosis Comments CT HEAD OUTSIDE (NO INTERPRETATION) Routine 03/26/2016 12:00 AM EDT documented in this encounter Results * CT Head Outside (No Interpretation) (03/26/2016 12:00 AM EDT) Narrative [facility] [place]G INTERFACES - 01/13/2017 3:45 PM EDT This study is for PACS storage only and not for interpretation. us Nancy Cardenas MD, MAGDALENA IMG OUTSIDE IMAGING W/OUT INTERPRETATION Final Result [facility] [place] IM INTERFACES documented in this encounter Visit [...] is not the complete legal health record.[facility]
--- OUTSIDE RECORDS SUMMARY | 2016-03-27 | XMS_ITS | Encounter Summary ---
Author Organization [facility] Address [address] [place] [address] Phone Care Team Providers Care Marble Rubber Name Role Phone Unavailable Primary Care Provider Unavailabl e Encounter Details Date Type Department Care Team (Late st Contact Info) Description 03/27/2016 Hospital Encounter [facility] General Imaging [address] [place] [address] Nancy Cardenas MD, MBBS [address] [phone] JUAN [email or web address] [email or web address] Social History Tobacco Use Types Packs/Day [...] 12:21 AM EDT Heather Lopez RN * [place] Suicide Severity Rating Scale (Screener/Recent Self-Report) Question [...] Description 06/03/2025 11:00 AM EST Office Visit [facility] Neurology [address] [place] [address] Natalie Syed FNP 15 [facility], 2nd [place] [address] [email or web address] 12/18/2025 11:30 AM EDT Office Visit [facility] 22 [facility] 3rd Floor, [address] [place] [address] Angelic Cesar DNP 22 [facility], [address] [address] [email or web address] documented as of this encounter Procedures Procedure Name Priority Date/Time Associated Diagnosis Comments MRI NECK OUTSIDE (NO INTERPRETATION) Routine 03/27/2016 12:00 AM EDT documented in this encounter Results * MRI Neck Outside (No Interpretation) (03/27/2016 12:00 AM EDT) Narrative [facility] [place] [place] [place] - 01/13/2017 3:28 PM EDT This study is for PACS storage only and not for interpretation. us Nancy Cardenas MD, MAGDALENA IMG OUTSIDE IMAGING W/OUT INTERPRETATION Final Result [facility] [place] documented in this encounter Visit [...] It is not the complete legal health record.[facility]
--- OUTSIDE RECORDS SUMMARY | 2016-03-27 00:15 | XMS_ITS | Encounter Summary ---
Author Organization [facility] General [facility] Address [address] [place] [address] Phone Care Team Providers Care System Sales Consultant Name Role Phone Unavailable Primary Care Provider Unavailabl e Encounter Details Date Type Department Care Team (Late st Contact Info) Description 03/27/2016 12:15 AM EDT Hospital Encounter [facility] General Imaging [address] [place] [address] Nancy Cardenas MD, MBBS [address] [phone] JUAN [email or web address] Social History Tobacco Use Types [...] 12:21 AM EDT Heather Lopez RN * [place] Suicide Severity Rating Scale (Screener/Recent Self-Report) Question [...] Description 06/03/2025 11:00 AM EST Office Visit [facility] Neurology [address] [place] [address] Natalie Syed FNP 15 [facility], 2nd [place] [address] [email or web address] 12/18/2025 11:30 AM EDT Office Visit [facility] [address] [place] [address] 3rd [facility], [address] [place] [address] Angelic Cesar DNP [address] [place] [address], [address] [address] [email or web address] documented as of this encounter Procedures Procedure Name Priority Date/Time Associated Diagnosis Comments MRI BRAIN OUTSIDE (NO INTERPRETATION) Routine 03/27/2016 12:15 AM EDT documented in this encounter Results * MRI Brain Outside (No Interpretation) (03/27/2016 12:15 AM EDT) Narrative [facility] [place] - 01/13/2017 3:29 PM EDT This study is for PACS storage only and not for interpretation. us Nancy Cardenas MD, MAGDALENA IMG OUTSIDE IMAGING W/OUT INTERPRETATION Final Result [facility] [place] [facility] [place] documented in [...] It is not the complete legal health record.[facility]
--- OUTSIDE RECORDS SUMMARY | 2020-11-26 13:00 | XMS_ITS | Encounter Summary ---
Author Organization [facility] Address [address] [place] [address] Phone Care Team Providers Care Clerk General Name Role Phone Ailin Araujo MD Primary Care Provider Encounter Details Date Type Department Care Team (Late st Contact Info) Description 11/26/2020 1:00 PM EDT Hospital Encounter [facility] Department of Neurology [address] [facility], [address] [place] [address] Nancy Cardenas MD, MBBS [address] [phone] JUAN [email or web address] Social History Tobacco Use Types Packs/Day [...] 12:21 AM EDT Heather Lopez RN * [place] Suicide Severity Rating Scale (Screener/Recent Self-Report) Question [...] Siddiqui RN documented as of this encounter Progress Notes * Stanley Luevano MD, PhD - 11/29/2020 11:11 AM EDT Images from the original note were not included. Please be advised: This patient is enrolled in a research study: the Study to Assess & Monitor Brain Activity ([facility], PI: Chloé) As part of the study, a small EEG device was placed on top of their head, which can be documented in the LDA Avatar while enrolled. *If the device falls off or is removed for any reason, please put the device in a plastic bag with the date and time it fell off, and place the bagged device in the [facility] collection bin (located in the dirty supply [...] and can be removed with the provided [employer] Remover Wipes (also stocked in the clean supply room, often near stoma supplies). Wipe the edges of the tape and hair todissolve the adhesive and gently free the device. For any urgent questions about the study or device, please page Dr. Luevano via pager [phone]. For any non-urgent questions, please email documented in this encounter Consult Notes * Derek Mei MD - 11/26/2020 1:00 PM EDT EPILEPSY MONITORING UNIT ADMISSION NOTE SERVICE DATE: 11/26/2020 d Patient Information: Liana Krishnamurthy [id number] 55 y.o.female HPI: Liana Krishnamurthy is a [...] had video EEGs, and EMU admission at [facility] during which her EEG was normal. She had several headaches episodes with no EEG correlate, however did not have any of her typical symptoms. At the time shewas started on Zonisamide. She was admitted to the [facility] EMU for characterization of spells. No typical [...] in-between), please page the epilepsy EMU fellow ([phone]) Tuesday to Tuesday and give Lorazepam 2 mg x1. Over the weekend, [place] [phone]. For technical issues related to the [place] [phone]. The above plan was discussed with the attending epileptologist, . Derek Mei MD, Epilepsy Fellow, PGY-5 EMU Consult Pager # [phone] Cosigned by Delisa Burton MD, MPH at 12/09/2020 4:11 PM EDT documented in this encounter Plan of Treatment Upcoming Encounters Date Type Department Care Team (Late st Contact Info) Description 06/03/2025 11:00 AM EST Office Visit [facility] [address] [place] [address] Natalie Syed FNP [address] [facility], 2nd [place] [address] [email or web address] 12/18/2025 11:30 AM EDT Office Visit [facility] 22 [facility] 3rd Floor, [address] [place] [address] Angelic Cesar DNP 22 [facility], [address] [place] [address] [email or web address] documented as of [...] * * * Derek Mei MD, 11/29/20 [facility] Epilepsy Fellow, PGY-5 I (Delisa Esparza) have reviewed this EEG recording with the fellow and edited this final report. Start Date: 11/26/2020 Start Time: 5:18 PM End Date: 12/01/2020 End Time: 8:30 AM * * Result [facility] Nancy Cardenas MD, MBBS NEUROLOGY ORDERABLES Inna stone Result documented in this encounter Visit Diagnoses Diagnosis Convulsions, unspecified convulsion type documented in this encounter Additional Health Concerns Infection Onset Date Last Indicated Resolved Time CoV-Risk 07/20/2023 07/20/2023 07/31/2023 1:22 AM EST CoV-Risk Comment:Per note documentation 06/06/2024 06/06/2024 10:40 AM EST CoV-Risk 08/31/2024 08/31/2024 09/11/2024 1:23 AM EST documented as of this encounter Care Teams Clerk General Relationship Specialty Start Date End Date Ailin Araujo MD [address] [place] [id number] PCP - General Family Medicine 05/13/17 documented as of this encounter Additional Source Comments The information contained in this document represents components of the legal health record. It is not the complete legal health record.[facility]
--- OUTSIDE RECORDS SUMMARY | 2022-09-23 14:35 | XMS_ITS | Encounter Summary ---
Author Organization [facility] Address [address] [place] [address] Phone Care Team Providers Care Laceworker Name Role Phone Ailin Araujo MD Primary Care Provider Encounter Details Date Type Department Care Team (Late st Contact Info) Description 09/23/2022 2:35 PM EDT Hospital Encounter [facility] Department of Neurology [address] [place] [address], [address] [place] [address] Nancy Cardenas MD, MBBS [address] [place] [address] [address] [place] [phone] JUAN [email or web address] Social History Tobacco Use Types Packs/Day Years [...] 12:21 AM EDT Heather Lopez RN * [place] Suicide Severity Rating Scale (Screener/Recent Self-Report) Question [...] Description 06/03/2025 11:00 AM EST Office Visit [facility] Neurology [address] [place] [address] Natalie Syed FNP 15 [facility], 2nd [place] [address] [email or web address] 12/18/2025 11:30 AM EDT Office Visit [facility] [address] [place] [address] Dr 3rd Floor, [address] [place] [address] Angelic Cesar DNP 22 [facility], [address] [address] documented as of this encounter Procedures Procedure Name Priority Date/Time Associated Diagnosis Comments OUTSIDE EEG (WITH INTERPRETATION) Routine 08/10/2022 11:36 AM EST Convulsions, unspecified convulsion type documented in this encounter Results * college and career counselor Use Only-Outside EEG (with Interpretation) (08/10/2022 11:36 AM EST) Anatomical Region Laterality Modality EEG Impressions 09/26/2022 9:31 AM EDT 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 Data was recorded on a 24-channel [employer] EEG recording device with a sampling rate of 200 samples per second/per channel, at impedance levels less than 10 K Ohms. Once the exam was completed, the recording was halted, electrodes carefully removed, and data transferred. INTERMITTENT MONITORING with VIDEO TECHNICAL SUMMARY Long-Term EEG with Video was monitored intermittently by a qualified chemistry technologist for the entirety of the recording; quality check-ins were performed at a minimum of every two hours, checking and documenting real-time data to assure the integrity and quality of the recording (e.g., electrode integrity and impedance), and identify the need for maintenance. For intermittent monitoring, an party coordinator monitored no more than 12 patients concurrently. [...] documented as of this encounter Care Teams Laceworker Relationship Specialty Start Date End Date Ailin Araujo MD [address] [place] [id number] PCP - General Family Medicine 05/13/17 documented as of this encounter Additional Source Comments The information contained in this document represents components of the legal health record. It is not the complete legal health record.[facility]
--- OUTSIDE RECORDS SUMMARY | 2023-07-07 09:23 | XMS_ITS | Encounter Summary ---
Author Organization [facility] Address [address] [employer] [facility] [address] [place] [phone] Phone Care Team Providers Care Controls Designer Name Role Phone Ailin Araujo MD Primary Care Provider Encounter Details Date Type Department Care Team (Late st Contact Info) Description 07/07/2023 8:23 AM EST Hospital Encounter [facility] [address] [place] [address] [phone] Aldair Barrera, SITE ACQUISITION SPECIALIST [address] [place], [place] [phone] [email or web address] Social History Tobacco Use Types Packs/Day Years [...] 12:21 AM EDT Heather Lopez RN * [place] Suicide Severity Rating Scale (Screener/Recent Self-Report) Question Answer Date of Assessment Author 1. Wish to be (Past 1 Month) No 025 12:21 AM EDT Heather Lopez RN 2. Non-Specific Active Suici luis Thoughts (Past 1 Month) No 11/22/2024 12:21 AM EDT Heather Lopez RN 6. Suicidal Behavior (Lifetime) No 12:21 AM EDT Heather Lopez RN documented as of this encounter Plan of Treatment Upcoming Encounters Date Type Department Care Team (Late st Contact Info) Description 06/03/2025 11:00 AM EST Office Visit [facility] [address] [place] [phone] Natalie Syed, NATA [address] [facility], 2nd [place] [address] 12/18/2025 11:30 AM EDT Office Visit [facility] [address] [place] [address] 3rd Floor, [address] [place] [address] Angelic Cesar DNP 22 [facility], [address] [address] documented as of this encounter Procedures Procedure [...] clinician's provided indication for this examination in [facility]: Trauma; hit lateral ankle on Tuesday, Also, has signs of infection. R/O osteomylitis and fracture COMPARISON: None FINDINGS: Lateral ankle soft tissue edema without acute fracture, dislocation, radiopaque foreign body, or erosion. Intact ankle mortise. No ankle joint effusion. Procedure Note Consuelo Haywood MD - 07/07/2023 XR ANKLE 3 OR MORE VIEWS (RIGHT) Referring clinician's provided indication for this examination in [facility]:Trauma; hit lateral ankle on Tuesday, Also, has signs of infection. R/Oosteomylitis and fracture COMPARISON: None FINDINGS: Lateral ankle soft tissue edema without acute fracture, dislocation,radiopaque foreign body, or erosion. Intact ankle mortise. No ankle jointeffusion. IMPRESSION: Lateral ankle soft tissue edema without fracture, dislocation, or evidenceof osteomyelitis. Aldair Barrera [facility] IMG XR LOWER EXTREMITY Final Result documented in this encounter Visit Diagnoses Not on filedocumented in this encounter Additional Health Concerns Infection Onset Date Last Indicated Resolved Time CoV-Risk 07/20/2023 07/20/2023 07/31/2023 1:22 AM EST CoV-Risk Comment:Per note documentation 06/06/2024 06/06/2024 10:40 AM EST CoV-Risk 08/31/2024 08/31/2024 09/11/2024 1:23 AM EST documented as of this encounter Care Teams Controls Designer Relationship Specialty Start Date End Date Ailin Araujo MD [address] [place] [phone] PCP - General Family Medicine 05/13/17 documented as of this encounter Additional Source Comments The information contained in this document represents components of the legal health record. It is not the complete legal health record.[facility]
--- OUTSIDE RECORDS SUMMARY | 2025-04-23 08:45 | XMS_ITS | Encounter Summary ---
Author Organization [facility] Address [address] [facility] [address] [place] [address] Phone Care Team Providers Care Road Cleaner Name Role Phone Ailin Araujo MD Primary Care Provider Reason for Referral * - New Request Specialty Diagnoses / Procedures Referred By Ambar alarcon Referred To Contact Radiology Diagnoses Left leg pain Procedures US Lower Extremity Veins Duplex (Left) Dante Osborn DO [address] [facility] [address] [place] [address] Phone: tel: fax: mailto:[email or web address] Referral ID Status Reason Start Date Expiration Date V isits Requested Visits Authorized [id number] New Request 04/23/2025 1 1 Encounter Details Date Type Department Care Team (Latest Contact Info) Description 04/23/2025 8:45 AM EDT Office Visit [facility] [address] [facility] 3rd Floor, [address] [place] [address] Dante Osborn DO [address] [facility] [address] [place] [address] [email or web address] Varicose veins of bilateral lower extremities with other complications (Primary Dx); Left leg pain; Palpitations; Orthostatic hypotension Social History Tobacco Use Types Packs/Day Years [...] PM EDT documented as of this encounter Last Filed Vital Signs Vital Sign Reading Time Taken Comments Blood Pressure 122/76 04/23/2025 8:49 AM EDT Pulse 90 04/23/2025 8:49 AM EDT Temperature - - Respiratory Rate - - Oxygen Saturation 97% 04/23/2025 8:49 AM EDT Inhaled Oxygen Concentration - - Weight 68.5 kg (151 lb) 04/23/2025 8:49 AM EDT Height 162.6 cm (5' 4.02 ) 04/23/2025 8:49 AM ED T Body Mass Index 25.91 04/23/2025 8:49 AM EDT documented in this encounter Progress Notes * Dante Osborn, - 04/23/2025 8:45 AM EDT History of present illness: I the pleasure of seeing your patient Terrie in the office. As you knowrita is a very pleasant 60-year-old female patient who has signs and symptoms classic for venous insufficiency. She is a CEAP class IV patient. Her left leg has many more symptoms than the right she has pain heaviness and swelling there especially when she walks. This does interfere with her abilityto perform activities of daily living and is despite conservative management with compression for greater than 6 months. I explained risk benefits and alternatives to her regarding a GSV ablation with the VenaSeal system on that left side. She has 10 seconds of reflux on the left and almost 7 on the right she agrees to proceed. We will get this done in the office. She was also having palpitationsbut recent MCT monitor showed no evidence of atrial fibrillation GENERAL ROS: General Negative for:, fever, chills. HEENT Negative for: headache, sore throat, congestion. Cardiovascular Negative for:, chest pain. Respiratory Negative for: cough, shortness of breath. GI/ Negative for: abdominal pain, nausea, vomiting, diarrhea. Musculoskeletal Negative for:, joint pain, muscle pain. Extremities Negative for, edema. Skin Negative for: rash, Negative. Neurological negative for headaches. Psychiatric Negative for, anxiety, depression. Endocrinology negative for: polyuria, polydipsia, polyphagia, weight loss. Discussed importance of leading heart healthy lifestyle with regular exercise of 30 minutes daily, Mediterranean diet, restriction of sodium intake, and maintenance of ideal body weight. Details of office evaluation below. Liana Krishnamurthy is a 60 y.o. female 60 y.o. Varicose veins of bilateral lower extremities with other complications [I83.893] Current Outpatient Medications Medication Sig Dispense Refill Last Dispense albuterol 90 mcg/actuation inhaler Inhale 1 puff into the lungs every 4 (four) hours as needed for shortness of breath/dyspnea. 18 g 0 Unknown (outside pharmacy) ARIPiprazole (ABILIFY) 10 MG disintegrating tablet Take 5 mg by mouth daily. Unknown (patient-reported) bumetanide (BUMEX) 0.5 MG tablet Take 1 tablet (0.5 mg total) by mouth 2 (two) times a day (once inthe morning and once in the afternoon). 60 tablet 1 Unknown (outside pharmacy) hcbpgrswwh-rqxykiztcfalb-obwhpdwh (FIORICET) 50-300-40 mg per capsule Take 1 capsule by mouth as needed. Unknown (patient-reported) clonazePAM (KLONOPIN) 0.5 MG disintegrating tablet Take 1 tablet (0.5 mg total) by mouth 2 (two) times a day as needed. 60 tablet 1 Unknown (outside pharmacy) dextroamphetamine-amphetamine (ADDERALL) 5 mg Tab Take 5 mg by mouth as needed. Unknown (patient-reported) DULoxetine (CYMBALTA) 40 mg capsule Take 40 mg by mouth daily. Unknown (patient-reported) EPINEPHrine 0.3 mg/0.3 mL auto-injector 0.3 mg as needed. Unknown (patient-reported) escitalopram oxalate (LEXAPRO) 10 MG tablet Take 15 mg by mouth daily. Unknown (patient-reported) levETIRAcetam (KEPPRA) 500 MG tablet Take 2.5 tablets (1,250 mg total) by mouth 2 (two) times a day. 150 tablet 2 Unknown (outside pharmacy) loperamide (IMODIUM) 2 mg capsule Take 1 capsule (2 mg total) by mouth 2 (two) times a day as needed for diarrhea. 30 capsule 0 Unknown (outside pharmacy) montelukast (SINGULAIR) 10 mg tablet Take 1 tablet (10 mg total) by mouth every morning. 30 tablet 1 Unknown (outside pharmacy) omeprazole (PRILOSEC) 20 MG capsule Take 1 capsule by mouth every morning. Unknown (patient-reported) ondansetron (ZOFRAN) 8 MG tablet Take 8 mg by mouth 3 (three) times a day. Unknown (patient-reported) oxyCODONE HCl 10 mg Tab take 1 tablet by mouth five times daily Unknown (patient-reported) rimegepant (NURTEC) 75 mg tablet Take 1 tablet (75 mg total) by mouth every other day. 16 tablet 11Unknown (outside pharmacy) SUMAtriptan (IMITREX) 100 MG tablet Take 1 tablet (100 mg total) by mouth daily as needed for migraine. Can repeat dose in 2 hours if needed. Do not exceed 2 doses in a 24 hour period. Max dose 200mg/ day 30 tablet 0 Unknown (outside pharmacy) No current facility-administered medications for this visit. Macadamia nut, Penicillins, Reglan [metoclopramide hcl], Venom-honey bee, Aspirin, Divalproex, Gabapentin, Latex, Metoclopramide, Sulfa (sulfonamide antibiotics), Tizanidine, Codeine, and Iodinated contrast media Past Medical History: Diagnosis Date Anxiety Asthma Bipolar disease, chronic Breast CA Depression Hypertensive disorder PTSD (post-traumatic stress disorder) Renal insufficiency Seizure-like activity EPILEPTIC VS NONEPILEPTIC Substance abuse Past Surgical History: Procedure Laterality Date GASTRIC BYPASS TOTAL KNEE ARTHROPLASTY Left 01/2024 No family history on file. Social History Tobacco Use Smoking status: Some Days Current packs/day: 0.25 Types: Cigarettes Smokeless tobacco: Never Tobacco comments: UPDATE: per pt she quit over 1 yr ago Vaping Use Vaping status: never used Substance Use Topics Alcohol use: Not Currently Drug use: Not Currently Examination BP 122/76 Pulse 90 Ht 162.6 cm (5' 4.02 ) Wt 68.5 kg (151 lb) SpO2 97% BMI 25.91 kg/m?? GENERAL APPEARANCE: NAD. HEENT: NC/AT, EOMI, PERRL, nose clear and TMs WNL. CAROTID UPSTROKE: normal. JVD: normal. HEART SOUNDS: LUNGS: clear to auscultation. ABDOMEN: no hepatomegaly; no hepato-jugular reflux. EXTREMITIES: no leg edema. PERIPHERAL PULSES: intact. NEUROLOGIC: grossly intact. Assessment and Plan: Palpitations I went over her MCT monitor showing no evidence of A-fib Varicose veins of bilateral lower extremities with other complications She is pretty symptomatic from this worse on the left than the right she has 10 seconds of reflux on that left great saphenous vein which we will ablate with the VenaSeal system I will see her after the postintervention ultrasound is performed I explained the risk benefits and alternatives to regarding this Orthostatic hypotension No symptoms of dizziness Dante Osborn DO . 04/23/2025 documented in this encounter Miscellaneous Notes * Assessment & Plan Note - Dante Osborn DO - 04/23/2025 9:05 AM EDT Associated Problem(s): Orthostatic hypotension No symptoms of dizziness * Assessment & Plan Note - Dante Osborn DO - 04/23/2025 9:05 AM EDT Associated Problem(s): Varicose veins of bilateral lower extremities with other complications She is pretty symptomatic from this worse on the left than the right she has 10 seconds of reflux on that left great saphenous vein which we will ablate with the VenaSeal system I will see her after the postintervention ultrasound is performed I explained the risk benefits and alternatives to regarding this * Assessment & Plan Note - Dante Osborn DO - 04/23/2025 9:04 AM EDT Associated Problem(s): Palpitations I went over her MCT monitor showing no evidence of A-fib documented in this encounter Plan of Treatment Upcoming Encounters Date Type Department Care Team (Late st Contact Info) Description 06/03/2025 11:00 AM EST Office Visit [facility] Neurology [address] [place] [address] Natalie Syed FNP [address] [facility], 2nd [place] [address] 12/18/2025 11:30 AM EDT Office Visit [facility] [address] [facility] 3rd Floor, [address] [place] [address] Angelic Cesar DNP [address] [facility], [address] [place] [address] [email or web address] Scheduled Orders Name Type Priority Associated Diagnoses Orde r Schedule US Endovenous Ablation Chemical Adhesive (Left) Vascular Routine Varicose veins of bilateral lower extremities with other complications Expected: 05/24/2025, Expires: 07/24/2025 US Lower Extremity Veins Duplex (Left) Vascular Routine Left leg pain Expected: 07/24/2025, Expires: 01/21/2026 documented as of this encounter Visit Diagnoses Diagnosis Varicose veins of bilateral lower extremities with other complications- Primary Left leg pain Pain in soft tissues of limb Palpitations Orthostatic hypotension documented in this encounter Additional Health Concerns Assessment Noted Time PHQ-9 Depression Total Score: 6 12/15/19 11:48 AM EDT PHQ-2 Depression Total Score: 2 12/15/19 11:48 AM EDT documented as of this encounter Care Teams Road Cleaner Relationship Specialty Start Date End Date Ailin Araujo MD [address] [place] [phone] PCP - General Family Medicine 05/13/17 documented as of this encounter Additional Source Comments The information contained in this document represents components of the legal health record. It is not the complete legal health record.[facility]
--- NOTE | 2025-04-26 11:50 | HO.NEPHOV ---
Vital Signs 04/26/25 11:57 Height 5 ft 2 in Weight 149 lb 2 oz BMI 27.3 BP 98/70 Blood Pressure Location Rt brachial Position Sitting Intake Visit Reasons: Request to be seen sooner, Having cardiology issue Well Drill Operator Helper Cable Tool Required: No Accompanied by: Self / Same As Patient Allergies bee pollen (Bee Stings) Allergy (Severe, Verified 04/26/25 11:57) ANAPHYLAXIS codeine (Codeine) Allergy (Severe, Verified 04/26/25 11:57) ANAPHYLAXIS macadamia nut Allergy (Severe, Verified 04/26/25 11:57) Anaphylaxis Penicillins Allergy (Severe, Verified 04/26/25 11:57) Anaphylaxis Sulfa (Sulfonamide Antibiotics) Allergy (Severe, Verified 04/26/25 11:57) Anaphylaxis sulfamethoxazole (From Bactrim) Allergy (Severe, Verified 04/26/25 11:57) Anaphylaxis trimethoprim (From Bactrim) Allergy (Severe, Verified 04/26/25 11:57) Anaphylaxis aspirin (ASA) Allergy (Verified 04/26/25 11:57) Unknown ciprofloxacin (From Cipro) Allergy (Verified 04/26/25 11:57) Rash Iodinated Contrast Media (Contrast Dye) Allergy (Verified 04/26/25 11:57) Hives latex Allergy (Verified 04/26/25 11:57) Rash HPI Comments Details: Jayda was seen for her chronic kidney disease. Her seizures had been better controlled but had relapse with seizures after she was initiated on wellbutryin which is reasonably controlled now. She remains on Bumex dose 0.5 mg daily as needed . Her breast cancer is closely monitored by [facility]. She denies any chest pain, shortness of breath, nausea, vomiting, diarrhea, weight gain, orthopnea or paroxysmal nocturnal dyspnea. She is not taking any nonsteroidal anti-inflammatory medications. She had no orthostatic symptoms. Her BP has been running low and was not taking her midodrine . She has history of atrial fibrillation which has been under control [facility] Medical History (Updated 11/21/24 @ 00:01 by Suzie Hernandez) Accidental medication overdose Altered mental state Hypotension Orthostatic hypotension Seizure disorder History of prolonged Q-T interval on ECG Psychogenic nonepileptic seizure CKD (chronic kidney disease) stage 3, GFR 30-59 ml/min COPD (chronic obstructive pulmonary disease) GERD (gastroesophageal reflux disease) Port-A-Cath in place Malabsorption Compression fracture of C3 vertebra Self-catheterizes urinary bladder Neuropathy SIADH (syndrome of inappropriate ADH production) Chronic anemia Enlarged liver Enlarged heart History of atrial fibrillation Polysubstance abuse Von Willebrand disease Factor V deficiency Depression Uterine cancer Breast cancer Migraines Asthma Seizure Surgical History H/O knee surgery Hx of cholecystectomy History of hysterectomy H/O gastric bypass Social History Household Members: Children Household Members Other:: One son Housing: House Housing Other:: House has ramps Do you presently have visiting nurse or other home services: No Alcohol intake: unknown Comment: 1:1 Sitter at bedside Patient Tobacco Use Status: Never used Tobacco Tobacco use type: Cigarette Cigarettes Per Day: 2 e-Cigarette/Vaping Use: Never Used service: No Review of Systems Const All systems reviewed & are unremarkable except as noted in HPI and below Physical Exam Vital Signs: Last Vital Signs BP 98/70 04/26/25 11:57 BMI result Body Mass Index 27.3 Const General: comfortable and no acute distress Orientation/consciousness: patient oriented x3 HEENT Head: Yes normocephalic Mouth: Normal oral and palatal mucosa present Eyes EOM: EOMs intact bilaterally Neck Neck: Yes supple Resp Auscultation: clear to auscultation bilaterally Cardio Jugular venous distension: no JVD Rate: regular rate GI Palpation (GI): Soft to palpation Auscultation: normal bowel sounds General: Yes no CVA tenderness Back/Spine/Pelvis Back: no CVA tenderness Skin General skin exam: no rashes or lesions noted Neuro General: patient oriented x3 and moves all extremities Extrem General: Yes no pedal edema Results Reviewed Nephrology Results: Hgb, (12.0-16.0) 11.2 g/dl L 11/16/24 WBC, (4.8-10.8) 6.9 X10*3/uL 11/16/24 Plt Count, (160-400) 188 X10*3/uL 11/16/24 Sodium, (135-145) 141 mmol/L 12/28/24 Potassium, (3.3-5.1) 4.1 mmol/L 12/28/24 Chloride, (96-108) 108 mmol/L 12/28/24 Carbon Dioxide, (22-29) 24 mmol/L 12/28/24 BUN, (9-16) 33 mg/dL H 12/28/24 Creatinine, (0.5-1.4) 1.08 mg/dL 12/28/24 Calcium, (8.4-10.2) 9.7 mg/dL Δ 12/28/24 Urine Protein, (Neg-Trace) Trace mg/dL 11/14/24 Assessment & Plan Assessment & Plan (1) Orthostatic hypotension: Code(s): I95.1 - Orthostatic hypotension Category: Medical (2) CKD stage 3a, GFR 45-59 ml/min: Code(s): N18.31 - Chronic kidney disease, stage 3a Category: Medical Plan Jayda has chronic kidney disease . Her serum creatinine had been stable. Her volume status is good and can have Bumex 0.5 mg daily as on a needed basis. She is not consuming excess salt. I asked her not to take excessive diuretics. I restarted her midodrine at 2.5 mg bid . She is followed by cardiology for H/O A Fib. She is avoiding nonsteroidal anti-inflammatory medications. She should maintain good hydration. I asked her to repeat blood work soon. She will be seen in office in follow-up Orders: Orders Complete Blood Count Auto Diff Today I95.1 - Orthostatic hypotension, N18.31 - Chronic kidney disease, stage 3a Calcium Today I95.1 - Orthostatic hypotension, N18.31 - Chronic kidney disease, stage 3a Electrolytes Today I95.1 - Orthostatic hypotension, N18.31 - Chronic kidney disease, stage 3a Blood Urea Nitrogen Today I95.1 - Orthostatic hypotension, N18.31 - Chronic kidney disease, stage 3a Creatinine Today I95.1 - Orthostatic hypotension, N18.31 - Chronic kidney disease, stage 3a Medications: New midodrine 2.5 mg PO BID 180 tabs 3RF 90 days Coding Level of Care Code Est Pt Level 4 (66266) Diagnoses Orthostatic hypotension I95.1 CKD stage 3a, GFR 45-59 ml/min N18.31
[2025-04-26 11:57] VITALS: BP 98/70; BMI 27.3
--- OUTSIDE RECORDS SUMMARY | 2025-04-26 14:27 | XMS_ITS | Encounter Summary ---
Author Organization [facility] Address [address] [facility] [address] [place] [address] Phone Care Team Providers Care Architectural Modeler Name Role Phone Pcp, Not Required Primary Care Provider Ailin Middleton MD Primary Care Provider Encounter Details Date Type Department Care Team (Late st Contact Info) Description 01/13/2017 Procedure Pass [facility] [address] [place] [address] Social History Tobacco Use Types Packs/Day Years [...] Description 06/03/2025 11:00 AM EST Office Visit [facility] Neurology [address] [place] [address] Yamilet Syedh Meliza, AMMONIUM SULFATE OPERATOR [address] [facility], 2nd [place] [address] 12/18/2025 11:30 AM EDT Office Visit [facility] [address] [facility] 3rd Floor, [address] [place] [address] Angelic Cesar DNP [address] [facility], [address] [place] [address] [email or web address] documented as of this encounter Visit Diagnoses Not on filedocumented in this encounter Additional Health Concerns Infection Onset Date Last Indicated Resolved Time CoV-Risk 07/20/2023 07/20/2023 07/31/2023 1:22 AM EST CoV-Risk Comment:Per note documentation 06/06/2024 06/06/2024 10:40 AM EST CoV-Risk 08/31/2024 08/31/2024 09/11/2024 1:23 AM EST documented as of this encounter Care Teams Architectural Modeler Relationship Specialty Start Date End Date Pcp, Not Required [address] [place] [address] PCP - General 12/31/16 05/12/17 Ailin Araujo MD [address] [place] [address] PCP - General Family Medicine 05/13/17 documented as of this encounter Additional Source Comments The information contained in this document represents components of the legal health record. It is not the complete legal health record.[facility]
--- OUTSIDE RECORDS SUMMARY | 2025-04-26 14:27 | XMS_ITS | Encounter Summary ---
Author Organization [facility] Address [address] [facility] [address] [place] [address] Phone Care Team Providers Care Interventional Technologist Name Role Phone Pcp, Not Required Primary Care Provider Ailin Middleton MD Primary Care Provider Encounter Details Date Type Department Care Team (Late st Contact Info) Description 01/13/2017 Procedure Pass [facility] [address] [place] [address] Social History Tobacco Use Types Packs/Day Years [...] Description 06/03/2025 11:00 AM EST Office Visit [facility] Neurology [address] [place] [address] Yamilet Syedh Meliza, ENTRY LEVEL MACHINE OPERATOR [address] [facility], 2nd [place] [address] 12/18/2025 11:30 AM EDT Office Visit [facility] [address] [facility] 3rd Floor, [address] [place] [address] Angelic Cesar DNP [address] [facility], [address] [place] [address] [email or web address] documented as of this encounter Visit Diagnoses Not on filedocumented in this encounter Additional Health Concerns Infection Onset Date Last Indicated Resolved Time CoV-Risk 07/20/2023 07/20/2023 07/31/2023 1:22 AM EST CoV-Risk Comment:Per note documentation 06/06/2024 06/06/2024 10:40 AM EST CoV-Risk 08/31/2024 08/31/2024 09/11/2024 1:23 AM EST documented as of this encounter Care Teams Interventional Technologist Relationship Specialty Start Date End Date Pcp, Not Required [address] [place] [address] PCP - General 12/31/16 05/12/17 Ailin Araujo MD [address] [place] [address] PCP - General Family Medicine 05/13/17 documented as of this encounter Additional Source Comments The information contained in this document represents components of the legal health record. It is not the complete legal health record.[facility]
--- OUTSIDE RECORDS SUMMARY | 2025-04-26 14:27 | XMS_ITS | Encounter Summary ---
Author Organization [facility] Address [address] [facility] [address] [place] [address] Phone Care Team Providers Care Baseball Winder Name Role Phone Pcp, Not Required Primary Care Provider Ailin Middleton MD Primary Care Provider Encounter Details Date Type Department Care Team (Late st Contact Info) Description 01/13/2017 Procedure Pass [facility] [address] [place] [address] Social History Tobacco Use Types Packs/Day Years [...] 06/03/2025 11:00 AM EST Office Visit [facility]rology [address] [place] [address] Yamilet Syedh Meliza, COKE OV[employer] MASON [address] [facility], 2nd [place] [address] 12/18/2025 11:30 AM EDT Office Visit [facility] [address] [facility] 3rd Floor, [address] [place] [address] Angelic Cesar DNP [address] [facility], [address] [place] [address] [email or web address] documented as of this encounter Visit Diagnoses Not on filedocumented in this encounter Additional Health Concerns Infection Onset Date Last Indicated Resolved Time CoV-Risk 07/20/2023 07/20/2023 07/31/2023 1:22 AM EST CoV-Risk Comment:Per note documentation 06/06/2024 06/06/2024 10:40 AM EST CoV-Risk 08/31/2024 08/31/2024 09/11/2024 1:23 AM EST documented as of this encounter Care Teams Baseball Winder Relationship Specialty Start Date End Date Pcp, Not Required [address] [place] [address] PCP - General 12/31/16 05/12/17 Ailin Araujo MD [address] [place] [address] PCP - General Family Medicine 05/13/17 documented as of this encounter Additional Source Comments The information contained in this document represents components of the legal health record. It is not the complete legal health record.[facility]
--- OUTSIDE RECORDS SUMMARY | 2025-04-26 14:27 | XMS_ITS | Encounter Summary ---
Author Organization [facility] Address [address] [facility] [address] [place] [address] Phone Care Team Providers Care Lav Crewman Name Role Phone Pcp, Not Required Primary Care Provider Ailin Middleton MD Primary Care Provider Encounter Details Date Type Department Care Team (Late st Contact Info) Description 01/13/[address] [facility] [address] [place] [address] Social History Tobacco Use Types Packs/Day Years [...] Description 06/03/2025 11:00 AM EST Office Visit [facility] Neurology [address] [place] [address] Yamilet Syedh Meliza, PEDIATRIC DENTAL ASSISTANT [address] [facility], 2nd [place] [address] 12/18/2025 11:30 AM EDT Office Visit [facility] [address] [facility] 3rd Floor, [address] [place] [address] Angelic Cesar DNP [address] [facility], [address] [place] [address] [email or web address] documented as of this encounter Visit Diagnoses Not on filedocumented in this encounter Additional Health Concerns Infection Onset Date Last Indicated Resolved Time CoV-Risk 07/20/2023 07/20/2023 07/31/2023 1:22 AM EST CoV-Risk Comment:Per note documentation 06/06/2024 06/06/2024 10:40 AM EST CoV-Risk 08/31/2024 08/31/2024 09/11/2024 1:23 AM EST documented as of this encounter Care Teams Lav Crewman Relationship Specialty Start Date End Date Pcp, Not Required [address] [place] [address] PCP - General 12/31/16 05/12/17 Ailin Araujo MD [address] [place] [id number] PCP - General Family Medicine 05/13/17 documented as of this encounter Additional Source Comments The information contained in this document represents components of the legal health record. It is not the complete legal health record.[facility]
--- OUTSIDE RECORDS SUMMARY | 2025-04-26 14:27 | XMS_ITS | Patient Health Record ---
Author Organization [facility] Address [address] [place] [address] Care Team Providers Care Amusement Equipment Operator Name Role Phone Ailin Araujo MD Primary Care Provider UnavailLefty Shepard Unavailable [phone] Allergies Allergen (clinical drug ingredient) Drug/Non Drug [...] Active Botox Active Procrit Active Spinal Introducer [id number] Active Tamoxifen Citrate 10 MG Oral; Duration: [...] Status Risk Notes Problem Pain in limb (38220121) Pain in unspecified foot (M79.673) Active confirmed Problem Neurological disorder associated with type I diabetes mellitus (866696772) 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 Plan Of Treatment Pending Test Test Name Order Date X ray : Foot, left 2V 06/16/2015 X ray : Foot, right 2V 06/16/2015 [id number] NAIL, 1-5 06/16/2015 12267-Ndipwirm Plate 09/26/2015 14641- Debride <25 sq cm 07/14/2015 [id number] SKIN LESIONS, OVER 4 06/16/20 15 [id number] SKIN LESIONS, 2 TO 4 09/26/19 16 Insurance Providers Payer Name Payer Address Payer Phone Subscriber Number Group Number Insured Name Patient Relationship to Insured Coverage Start Date Coverage End Date Medicare National Govt Svcs [employer] [address] [place] [address] [id number] Liana Moser Self - patient is the insured Medical (General) History Medical History History ICD Code Anemia Anxiety Arthritis Back,Hip,and Knee pain Cancer Depression Diabetic Migraines Nerve disease Neuropathy Chicken pox Measles Poor circulation Psychiatric disorder Sciatica Transfusions Seizures Surgical History Surgery Date(Month/Year) hysterectomy lumpectomy cholecystectomy gastric bypass
--- OUTSIDE RECORDS SUMMARY | 2025-04-26 14:27 | XMS_ITS | Encounter Summary ---
Author Organization [facility] Address [address] [facility] [address] [place] [address] Phone Care Team Providers Care Client Support Professional Name Role Phone Pcp, Not Required Primary Care Provider Ailin Middleton MD Primary Care Provider Encounter Details Date Type Department Care Team (Late st Contact Info) Description 01/13/2017 Procedure Pass [facility] Imaging [address] [place] [address] Social History Tobacco Use Types Packs/Day Years [...] 06/03/2025 11:00 AM EST Office Visit [facility] Neurology [address] [place] [address] Yamilet Syedh Meliza, ROOFING SUPERINTENDENT [address] [facility], 2nd [place] [address] 12/18/2025 11:30 AM EDT Office Visit [facility] [address] [facility] 3rd Floor, [address] [place] [address] Angelic Cesar DNP [address] [facility], [address] [place] [address] [email or web address] documented as of this encounter Visit Diagnoses Not on filedocumented in this encounter Additional Health Concerns Infection Onset Date Last Indicated Resolved Time CoV-Risk 07/20/2023 07/20/2023 07/31/2023 1:22 AM EST CoV-Risk Comment:Per note documentation 06/06/2024 06/06/2024 10:40 AM EST CoV-Risk 08/31/2024 08/31/2024 09/11/2024 1:23 AM EST documented as of this encounter Care Teams Client Support Professional Relationship Specialty Start Date End Date Pcp, Not Required [address] [place] [address] PCP - General 12/31/16 05/12/17 Ailin Araujo MD [address] [place] [address] PCP - General Family Medicine 05/13/17 documented as of this encounter Additional Source Comments The information contained in this document represents components of the legal health record. It is not the complete legal health record.[facility]
--- OUTSIDE RECORDS SUMMARY | 2025-04-26 14:27 | XMS_ITS | Encounter Summary ---
Author Organization [facility] Address [address] [facility] [address] [place] [address] Phone Care Team Providers Care Equipment Maint Tech Name Role Phone Pcp, Not Required Primary Care Provider Ailin Middleton MD Primary Care Provider Encounter Details Date Type Department Care Team (Late st Contact Info) Description 01/13/[address] [facility] Imaging [address] [place] [address] Social History Tobacco Use Types Packs/Day Years [...] Description 06/03/2025 11:00 AM EST Office Visit [facility] Neurology [address] [place] [address] Yamilet Syedh Meliza, WOOL FLEECE SORTER [address] [facility], 2nd [place] [address] 12/18/2025 11:30 AM EDT Office Visit [facility] [address] [facility] 3rd Floor, [address] [place] [address] Angelic Cesar DNP [address] [facility], [address] [place] [address] [email or web address] documented as of this encounter Visit Diagnoses Not on filedocumented in this encounter Additional Health Concerns Infection Onset Date Last Indicated Resolved Time CoV-Risk 07/20/2023 07/20/2023 07/31/2023 1:22 AM EST CoV-Risk Comment:Per note documentation 06/06/2024 06/06/2024 10:40 AM EST CoV-Risk 08/31/2024 08/31/2024 09/11/2024 1:23 AM EST documented as of this encounter Care Teams Equipment Maint Tech Relationship Specialty Start Date End Date Pcp, Not Required [address] [place] [address] PCP - General 12/31/16 05/12/17 Ailin Araujo MD [address] [place] [address] PCP - General Family Medicine 05/13/17 documented as of this encounter Additional Source Comments The information contained in this document represents components of the legal health record. It is not the complete legal health record.[facility]
--- OUTSIDE RECORDS SUMMARY | 2025-04-26 14:28 | XMS_ITS | Encounter Summary ---
Author Organization [facility] Address [address] [facility] [address] [place] [address] Phone Care Team Providers Care Career Coach Name Role Phone Ailin Araujo MD Primary Care Provider Encounter Details Date Type Department Care Team (Late st Contact Info) Description 07/20/2023 Transcribe Orders [facility] Specimen Processing [address] [place] [address] Ailin Araujo MD [address] [place] [address] Social History Tobacco Use Types Packs/Day Years [...] on file 11/04/2022 No 11/04/2022 No 11/04/2022 Digital Access Answer Date Recorded No 12/01/2022 No 12/01/2022 Reliable internet access at home? Not on file 12/01/2022 Device with a working camera? Not on file Comments Unknown Sex and Gender Information Value Date Recorded Sex Assigned at Female 12/22/2020 4:54 PM EDT Legal Sex Female 9:49 AM EDT Gender Identity Female 03/04/2021 1:51 PM EDT Sexual Orientation Straight 10/05/2021 6: 22 PM EDT documented as of this encounter Functional Status * Calculated C-SSRS Risk Score (Lifetime/Recent) Answer Date of Assessment Author No Risk Indicated 07/20/2023 3:53 PM Abeba Hu RN * [place] Suicide Severity Rating Scale (Screener/Recent Self-Report) Question Answer Date of Assessment Author 1. Wish to be (Past 1 Month) No 024 3:53 PM Abeba Hu RN 2. Non-Specific Active Suici luis Thoughts (Past 1 Month) No 07/20/2023 3:53 PM Dixie Hu RN 6. Suicidal Behavior (Lifetime) No 3:53 PM Abeba Hu RN documented as of this encounter Plan of Treatment Upcoming Encounters Date Type Department Care Team (Late st Contact Info) Description 06/03/2025 11:00 AM EST Office Visit [facility] Neurology [address] [place] [address] Natalie Syed, NATA [address] [facility], 2nd [place] [address] 12/18/2025 11:30 AM EDT Office Visit [facility] [address], [address] [place] [address] Angelic Cesar DNP [address] [facility], [address] [place] [address] documented as of this encounter Visit Diagnoses Not on filedocumented in this encounter Additional Health Concerns Infection Onset Date Last Indicated Resolved Time CoV-Risk 07/20/2023 07/20/2023 07/31/2023 1:22 AM EST CoV-Risk Comment:Per note documentation 06/06/2024 06/06/2024 10:40 AM EST CoV-Risk 08/31/2024 08/31/2024 09/11/2024 1:23 AM EST documented as of this encounter Care Teams Career Coach Relationship Specialty Start Date End Date Ailin Araujo MD [address] [place] [address] PCP - General Family Medicine 05/13/17 documented as of this encounter Additional Source Comments The information contained in this document represents components of the legal health record. It is not the complete legal health record.[facility]
--- OUTSIDE RECORDS SUMMARY | 2025-04-26 14:28 | XMS_ITS | Encounter Summary ---
Author Organization [facility] Address [address] [facility] [address] [place] [address] Phone Care Team Providers Care Manager Shell Name Role Phone Ailin Araujo MD Primary Care Provider Encounter Details Date Type Department Care Team (Late st Contact Info) Description 07/23/2022 Procedure Pass [facility], Ct Scan - [address] [address] Social History Tobacco Use Types Packs/Day Years Used Date Smoking Tobacco: Former Cigarettes Smokeless Tobacco: Never Comments:UPDATE: per pt [...] Description 06/03/2025 11:00 AM EST Office Visit [facility] Neurology [address] [place] [address] Yamilet Syedh Meliza, COMPUTER ART INSTRUCTOR [address] [facility], 2nd [place] [address] 12/18/2025 11:30 AM EDT Office Visit [facility] [address] [facility] 3rd Floor, [address] [place] [address] Angelic Cesar DNP [address] [facility], [address] [place] [address] [email or web address] documented as of this encounter Visit Diagnoses Not on filedocumented in this encounter Additional Health Concerns Infection Onset Date Last Indicated Resolved Time CoV-Risk 07/20/2023 07/20/2023 07/31/2023 1:22 AM EST CoV-Risk Comment:Per note documentation 06/06/2024 06/06/2024 10:40 AM EST CoV-Risk 08/31/2024 08/31/2024 09/11/2024 1:23 AM EST documented as of this encounter Care Teams Manager Shell Relationship Specialty Start Date End Date Ailin Araujo MD [address] [place] [address] PCP - General Family Medicine 05/13/17 documented as of this encounter Additional Source Comments The information contained in this document represents components of the legal health record. It is not the complete legal health record.[facility]
--- OUTSIDE RECORDS SUMMARY | 2025-04-26 14:28 | XMS_ITS | Encounter Summary ---
Author Organization [facility] Address [address] [facility] [address] [place] [address] Phone Care Team Providers Care Oil Distributor Tender Name Role Phone Ailin Araujo MD Primary Care Provider Encounter Details Date Type Department Care Team (Late st Contact Info) Description 10/19/2023 Procedure Pass [facility], Ct Scan - [address] [address] Social History Tobacco Use Types Packs/Day Years [...] Date of Assessment Author No Risk Indicated 10/20/2023 2:00 AM EDT Do Reinoso, MERLIN * [place] Suicide Severity Rating Scale (Screener/Recent Self-Report) Question Answer Date of Assessment Author 1. Wish to be (Past 1 Month) No 2:00 AM EDT Do Reinoso, MERLIN 2. Non-Specific Active Suici luis Thoughts (Past 1 Month) No 10/20/2023 2:00 AM EDT Faye eRinoso RN 6. Suicidal Behavior (Lifetime) No 2:00 AM EDT Do Reinoso RN documented as of this encounter Plan of Treatment Upcoming Encounters Date Type Department Care Team (Late st Contact Info) Description 06/03/2025 11:00 AM EST [facility] [address] [place] [address] Natalie Syed FNP [address] [facility], 2nd [place] [address] 12/18/2025 11:30 AM EDT Office Visit [facility] [address], [address] [place] [address] Angelic Cesar DNP [address] [facility], [address] [address] documented as of this encounter Visit Diagnoses Not on filedocumented in this encounter Additional Health Concerns Infection Onset Date Last Indicated Resolved Time CoV-Risk Comment:Per note documentation 06/06/2024 06/06/2024 10:40 AM EST CoV-Risk 08/31/2024 08/31/2024 09/11/2024 1:23 AM EST documented as of this encounter Care Teams Oil Distributor Tender Relationship Specialty Start Date End Date Ailin Araujo MD [address] [place] [address] PCP - General Family Medicine 05/13/17 documented as of this encounter Additional Source Comments The information contained in this document represents components of the legal health record. It is not the complete legal health record.[facility]
--- OUTSIDE RECORDS SUMMARY | 2025-04-26 14:28 | XMS_ITS | Encounter Summary ---
Author Organization [facility] Address [address] [facility] [address] [place] [address] Phone Care Team Providers Care Licensed Architect Name Role Phone Pcp, Not Required Primary Care Provider Ailin Middleton MD Primary Care Provider Reason for Visit * Reason Onset Date Comments Information 04/05/2017 I left a vm to c all back to verify if the last name is spelled correctly Information 04/05/2017 Pt called to reinaldo smith her correct last name Encounter Details Date Type Department Care Team (Late st Contact Info) Description 04/05/2017 Telephone [facility] Epilepsy Service [address] [facility], 8th Floor, [address] [place] [address] Nancy Cardenas MD, MBBS [address] [address] [email or web address] Information (I left a vm to call back to verify if the last name is spelled correctly); Information (Pt called to verify her correct last name) Social History Tobacco Use Types Packs/Day Years Used Date Smoking Tobacco: Every Day Comments Unknown Sex and Gender Information Value [...] Description 06/03/2025 11:00 AM EST Office Visit [facility] Neurology [address] [place] [address] Natalie Syed, MERCERIZER MACHINE OPERATOR [address] [facility], 2nd [place] [address] 12/18/2025 11:30 AM EDT Office Visit [facility] [address] [facility] 3rd Floor, [address] [place] [address] Angelic Cesar DNP [address] [facility], [address] [place] [address] documented as of this encounter Visit Diagnoses Not on filedocumented in this encounter Additional Health Concerns Infection Onset Date Last Indicated Resolved Time CoV-Risk 07/20/2023 07/20/2023 07/31/2023 1:22 AM EST CoV-Risk Comment:Per note documentation 06/06/2024 06/06/2024 10:40 AM EST CoV-Risk 08/31/2024 08/31/2024 09/11/2024 1:23 AM EST documented as of this encounter Care Teams Licensed Architect Relationship Specialty Start Date End Date Pcp, Not Required [address] [place] [address] PCP - General 12/31/16 05/12/17 Ailin Araujo MD [address] [place] [address] PCP - General Family Medicine 05/13/17 documented as of this encounter Additional Source Comments The information contained in this document represents components of the legal health record. It is not the complete legal health record.[facility]
--- OUTSIDE RECORDS SUMMARY | 2025-04-26 14:28 | XMS_ITS | Clinical Summary ---
Author Organization [employer] [facility] Address [address] [place] [address] 7t [place] [address] Care Team Providers Care Bridal Sales Consultant Name Role Phone Unavailable Primary [...] 04/03/2014, 02/23/2000 COVID-19 Vaccine (5 - season) 2025 04/03/2022, 06/24/2021, 10/15/2020, Additional history exists Influenza [...]
--- OUTSIDE RECORDS SUMMARY | 2025-04-26 14:28 | XMS_ITS | Encounter Summary ---
Author Organization [employer] [facility] Address [address] [facility] [address] [place] [address] Care Team Providers Care Core Shaper Name Role Phone Unavailable Primary Care Provider Unavailabl e Reason for Visit * Reason Onset Date Comments Dr. Currie denture update 08/07/2024 Encounter Details Date Type Department Care Team (Late st Contact Info) Description 08/07/2024 Telephone [facility] [address] [place] [address] Collins Mendiola BDS [address] [place] [address] Currie denture update Social History Tobacco [...] provider is out of the office DR Jonesally signed by Jonna De La Fuente at 08/07/2024 12:23 PM EST documented in this encounter Plan of Treatment Not on file documented as of this encounter Visit Diagnoses Not on filedocumented in this encounter
--- OUTSIDE RECORDS SUMMARY | 2025-04-26 14:28 | XMS_ITS | Encounter Summary ---
Author Organization [facility] Address [address] [facility] [address] [place] [address] Phone Care Team Providers Care Milk And Cream Grader Name Role Phone Pcp, Not Required Primary Care Provider Ailin Middleton MD Primary Care Provider Reason for Visit * Reason Onset Date Comments Appointment 05/11/2017 Left a vm Encounter Details Date Type Department Care Team (Late st Contact Info) Description 05/11/2017 Telephone [facility] Epilepsy Service [address] [place] [address], 8th Floor, [address] [place], [place] [id number] Nancy Cardenas MD, MBBS [address] [place] [phone] [email or web address] Appointment (Left a vm) Social History Tobacco Use Types Packs/Day Years [...] Description 06/03/2025 11:00 AM EST Office Visit [facility] Neurology [address] [place] [address] Natalie Syed FNP 15 [facility], 2nd [place] [address] 12/18/2025 11:30 AM EDT Office Visit [facility] [address] 3rd Floor, [address] [place] [address] Angelic Cesar DNP 22 [facility], [address] [place] [address] [email or web address] documented as of this encounter Visit Diagnoses Not on filedocumented in this encounter Additional Health Concerns Infection Onset Date Last Indicated Resolved Time CoV-Risk 07/20/2023 07/20/2023 07/31/2023 1:22 AM EST CoV-Risk Comment:Per note documentation 06/06/2024 06/06/2024 10:40 AM EST CoV-Risk 08/31/2024 08/31/2024 09/11/2024 1:23 AM EST documented as of this encounter Care Teams Milk And Cream Grader Relationship Specialty Start Date End Date Pcp, Not Required [address] [place] [address] PCP - General 12/31/16 05/12/17 Ailin Araujo MD [address] [place] [address] PCP - General Family Medicine 05/13/17 documented as of this encounter Additional Source Comments The information contained in this document represents components of the legal health record. It is not the complete legal health record.[facility]
--- OUTSIDE RECORDS SUMMARY | 2025-04-26 14:28 | XMS_ITS | Encounter Summary ---
Author Organization [facility] Address [address] [facility] [address] [place] [address] Phone Care Team Providers Care Director Security Risk Management Name Role Phone Pcp, Not Required Primary Care Provider Ailin Middleton MD Primary Care Provider Encounter Details Date Type Department Care Team (Late st Contact Info) Description 01/13/2017 Procedure Pass [facility] [address] [place] [address] Social History Tobacco Use Types Packs/Day Years [...] Description 06/03/2025 11:00 AM EST Office Visit [facility] Neurology [address] [place] [address] Yamilet Syedh Meliza, MIXOLOGIST [address] [facility], 2nd [place] [address] 12/18/2025 11:30 AM EDT Office Visit [facility] 22 [facility] 3rd Floor, [address] [place] [address] Angelic Cesar DNP [address] [facility], [address] [place] [address] [email or web address] documented as of this encounter Visit Diagnoses Not on filedocumented in this encounter Additional Health Concerns Infection Onset Date Last Indicated Resolved Time CoV-Risk 07/20/2023 07/20/2023 07/31/2023 1:22 AM EST CoV-Risk Comment:Per note documentation 06/06/2024 06/06/2024 10:40 AM EST CoV-Risk 08/31/2024 08/31/2024 09/11/2024 1:23 AM EST documented as of this encounter Care Teams Director Security Risk Management Relationship Specialty Start Date End Date Pcp, Not Required [address] [place] [address] PCP - General 12/31/16 05/12/17 Ailin Araujo MD [address] [place] [address] PCP - General Family Medicine 05/13/17 documented as of this encounter Additional Source Comments The information contained in this document represents components of the legal health record. It is not the complete legal health record.[facility]
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
--- OUTSIDE RECORDS SUMMARY | 2025-04-26 14:28 | XMS_ITS | Encounter Summary ---
Author Organization [facility] Address [address] [facility] [address] [place] [address] Phone Care Team Providers Care Butadiene Convertor Operator Name Role Phone Ailin Araujo MD Primary Care Provider Encounter Details Date Type Department Care Team (Late st Contact Info) Description 12/22/2020 Procedure Pass , Ct Scan - [address] [address] Social History Tobacco Use Types Packs/Day Years Used Date Smoking Tobacco: Former Cigarettes Smokeless Tobacco: Never Comments:UPDATE: per pt she quit over 1 yr ago Comments Unknown Sex and Gender Information Value Date Recorded Sex Assigned at Female 12/22/2020 4:54 PM EDT Legal Sex Female 9:49 AM EDT Gender Identity Female 03/04/2021 1:51 PM EDT Sexual Orientation Straight 10/05/2021 6: 22 PM EDT documented as of this encounter Functional Status * Calculated C-SSRS Risk Score (Lifetime/Recent) Answer Date of Assessment Author No Risk Indicated 12/22/2020 4:51 PM EDT Abelardo Kline, MERLIN * [place] Suicide Severity Rating Scale (Screener/Recent Self-Report) Question Answer Date of Assessment Author 1. Wish to be (Past 1 Month) No 021 4:51 PM EDT Abelardo Kline, RN 2. Non-Specific Active Suici luis Thoughts (Past 1 Month) No 12/22/2020 4:51 PM EDT Teodoro Kline, RN 6. Suicidal Behavior (Lifetime) No 4:51 PM EDT Abelardo Kline, RN documented as of this encounter Plan of Treatment Upcoming Encounters Date Type Department Care Team (Late st Contact Info) Description 06/03/2025 11:00 AM EST Office Visit [facility] Neurology [address] [place] [address] Natalie Syed FNP [address] [facility], 2nd [place] [address] 12/18/2025 11:30 AM EDT Office Visit [facility] [address] [facility] 3rd Floor, [address] [place] [address] Angelic Cesar DNP 22 [facility], [address] [address] [email or web address] documented as of this encounter Visit Diagnoses Not on filedocumented in this encounter Additional Health Concerns Infection Onset Date Last Indicated Resolved Time CoV-Risk 07/20/2023 07/20/2023 07/31/2023 1:22 AM EST CoV-Risk Comment:Per note documentation 06/06/2024 06/06/2024 10:40 AM EST CoV-Risk 08/31/2024 08/31/2024 09/11/2024 1:23 AM EST documented as of this encounter Care Teams Butadiene Convertor Operator Relationship Specialty Start Date End Date Ailin Araujo MD [address] [place] [phone] PCP - General Family Medicine 05/13/17 documented as of this encounter Additional Source Comments The information contained in this document represents components of the legal health record. It is not the complete legal health record.[facility]
--- OUTSIDE RECORDS SUMMARY | 2025-04-26 14:28 | XMS_ITS | Clinical Summary ---
Author Organization [facility] Address [address] [place] [phone] Phone Care Team Providers Care Linux Consultant Name Role Phone Ailin Araujo MD Primary Care Provider [phone] Allergies No known active allergies Medications bumetanide [...] 1 (one) time each day. 09/06/2024 Active midodrine (PROAMATINE) 5 mg tablet Take [...] Noted Date Diagnosed Date Seizure-like activity ([facility] V24, [facility] V28) 10/01/2024 Surgical History Surgery Date Site/Laterality Comments HYSTERECTOMY Medical History Medical History Date Comments Seizure disorder ([facility] V24, [facility] V28) CKD (chronic kidney disease) History of migraine headaches Breast cancer ([facility] V24, [facility] V28) Uterine cancer ([facility] V24, [facility] V28) Asthma Orthostatic hypotension Venous insufficiency History of anemia due to chronic kidney disease Migraine headache PTSD (post-traumatic stress disorder) Bipolar disorder ([facility] V24, [facility] V28) Social History Tobacco Use Types Packs/Day [...] do you feel lonely or isolated from ose around you? Never 10/02/2024 Food Risk [...] care for your loved ones. For example, child protection specialist or elderly care for an older adult? [...] Date Recorded What is your living situation? Unrecognized valu e 10/02/2024 Interpersonal Safety Answer Date Record ed Physical Abuse Unrecognized value 10/02/2024 Verbal Abuse Unrecognized value 10/02/2024 Comments Unknown Sex and Gender Information [...] Last Done Comments Breast Cancer Screening 1965 Colorectal Cancer Screening: Colonoscopy 1965 Zoster Vaccines (1 of 2) 01/09/1984 Cervical Cancer Screening: Pap Smear 1986 Hepatitis A Vaccines (2 of 3 - Hep A Twinrix risk 3-dose series) 01/17/2013 12/20/2012 Hepatitis B Vaccines (2 of 3 - Hep B Twinrix 3-dose series) 01/17/2013 12/20/2012 RSV Immunization Adult Patients (1 - Risk 50-74 years 1-dose series) 2015 Pneumococcal Vaccine: 50+ Years (3 of 3 - PCV) 04/03/2015 04/03/2014, 02/23/2000 Depression Screening 07/11/2024 HIV Screening 10/02/2024 Hepatitis C Screening 10/02/2024 Medicare Annual Wellness Visit 10/02/2024 COVID-19 Vaccine (8 - Pfizer risk 2023- season) 2025 05/25/2024, 05/06/2023, 04/03/2022, Additional history exists Influenza Vaccine (#1) 2025 , 04/20/2023, 04/03/2022, Additional history exists Social Influencers of Health Screening 10/02/2025 10/02/2024 Hypertension/CHF/CAD Annual BMP Blood Test 11/22/2025 11/22/2024, 10/03/2024, 10/02/2024, Additional history exists Cholesterol Screening (Lipid Panel) 01/29/2028 01/28/2023 DTaP,Tdap,and Td Vaccines (3 - Td or Tdap) 04/19/2032 04/19/2022, 02/06/2014 HIB Vaccines Aged Out No longer eligi [...] or Most Recently Relevant to Health Maintenance Results * (ABNORMAL) Basic metabolic panel (10/03/2024 5:51 AM EDT) Sodium 141 133 - 145 mmol/L LAB CHEMISTRY METHOD 10/03/2024 7:09 AM [facility] Potassium 3.6 3.5 - 5.5 mmol/L LAB CHEMISTRY METHOD 10/03/2024 7:09 AM [facility] Chloride 109 96 - 110 mmol/L LAB CHEMISTRY METHOD 10/03/2024 7:09 AM [facility] CO2 28 21 - 32 mmol/L LAB CHEMISTRY METHOD 10/03/2024 7:09 AM [facility] Anion Gap 4 3 - 11 LAB CHEMISTRY METHOD 10/03/2024 7:09 AM [facility] Glucose 84 70 - 100 mg/dL LAB CHEMISTRY METHOD 10/03/2024 7:09 AM [facility] BUN 16 5 - 25 mg/dL LAB CHEMISTRY METHOD 10/03/2024 7:09 AM [facility] Creatinine 1.11(H) 0.50 - 1.10 mg/dL LAB CHEMISTRY METHOD 10/03/2024 7:09 AM EDT [facility] eGFR 57(L) >=60 mL/min/1. 73m2 LAB CHEMISTRY METHOD 10/03/2024 7:09 AM EDT [facility] Comment:Calculation based on the Chronic Kidney Disease Epidemiology Collaboration (CKD-EPI) equation refit without adjustment for race. BUN/Creatinine Ratio 14.4 LAB CHEMISTRY METHOD 10/03/2024 7:09 AM EDT [facility] Calcium 8.8 8.5 - 10.5 mg/dL LAB CHEMISTRY METHOD 10/03/2024 7:09 AM EDT [facility] Blood Venous blood specimen / Unknown Venipuncture / Unknown 10/03/2024 5:51 AM EDT 10/03/2024 6:13 AM EDT us Justina Ramos MD LAB BLOOD ORDERABLES Final Res ult [facility] [address] [place] [address], from Last 3 Months or Most Recently [...] currently active code status orders. Care Teams Linux Consultant Relationship Specialty Start Date End Date Ailin Araujo MD [address] [place] [address], [address] [place] [address] PCP - General Family Medicine 10/01/24
--- OUTSIDE RECORDS SUMMARY | 2025-04-26 14:28 | XMS_ITS | Encounter Summary ---
Author Organization [facility] Address [address] [place] [address] Phone Care Team Providers Care Folder Inspector Name Role Phone Pcp, Not Required Primary Care Provider Ailin Middleton MD Primary Care Provider Encounter Details Date Type Department Care Team (Late st Contact Info) Description 03/25/2017 Telephone [facility] [address] [facility], 8th Floor, [address] [place] [address] Nancy Cardenas MD, MBBS [address] [facility] [address] [place] [address] [email or web address] Social History Tobacco Use Types Packs/Day Years [...] Description 06/03/2025 11:00 AM EST Office [facility] Neurology [address] [place] [address] Natalie Syed, SLUBBER HAND [address] [facility], 2nd [place] [address] 12/18/2025 11:30 AM EDT Office Visit [facility] [address] Floor, [address] [place] [address] Angelic Cesar DNP [address] [facility], [address] [place] [address] [email or web address] documented as of this encounter Visit Diagnoses Not on filedocumented in this encounter Additional Health Concerns Infection Onset Date Last Indicated Resolved Time CoV-Risk 07/20/2023 07/20/2023 07/31/2023 1:22 AM EST CoV-Risk Comment:Per note documentation 06/06/2024 06/06/2024 10:40 AM EST CoV-Risk 08/31/2024 08/31/2024 09/11/2024 1:23 AM EST documented as of this encounter Care Teams Folder Inspector Relationship Specialty Start Date End Date Pcp, Not Required [address] [place] [phone] PCP - General 12/31/16 05/12/17 Ailin Araujo MD [address] [place] [address] PCP - General Family Medicine 05/13/17 documented as of this encounter Additional Source Comments The information contained in this document represents components of the legal health record. It is not the complete legal health record.[facility]
--- OUTSIDE RECORDS SUMMARY | 2025-04-26 14:29 | XMS_ITS | Encounter Summary ---
Author Organization [facility] Address [address] [facility] [address] [place] [address] Phone Care Team Providers Care Chief Wellness Officer Name Role Phone Ailin Araujo MD Primary Care Provider Encounter Details Date Type Department Care Team (Late st Contact Info) Description 10/05/2021 Procedure Pass [facility], Ct Scan - [address] [address] Social History Tobacco Use Types Packs/Day Years [...] Date of Assessment Author No Risk Indicated 10/05/2021 6:22 PM EDT Diann William RN * [place] Suicide Severity Rating Scale (Screener/Recent Self-Report) Question Answer Date of Assessment Author 1. Wish to be (Past 1 Month) No 022 6:22 PM EDT Diann William, RN 2. Non-Specific Active Suici luis Thoughts (Past 1 Month) No 10/05/2021 6:22 PM EDT Maciel William, RN 6. Suicidal Behavior (Lifetime) No 6:22 PM EDT Diann William, RN documented as of this encounter Plan of Treatment Upcoming Encounters Date Type Department Care Team (Late st Contact Info) Description 06/03/2025 11:00 AM EST Office Visit [facility] Neurology [address] [place] [phone] Natalie Syed FNP 15 [facility], 2nd [place] [address] 12/18/2025 11:30 AM EDT Office Visit [facility] 22 [facility] 3rd Floor, [address] [place] [address] Angelic Cesar DNP 22 [facility], [address] [place] [address] [email or web address] documented as of this encounter Visit Diagnoses Not on filedocumented in this encounter Additional Health Concerns Infection Onset Date Last Indicated Resolved Time CoV-Risk 07/20/2023 07/20/2023 07/31/2023 1:22 AM EST CoV-Risk Comment:Per note documentation 06/06/2024 06/06/2024 10:40 AM EST CoV-Risk 08/31/2024 08/31/2024 09/11/2024 1:23 AM EST documented as of this encounter Care Teams Chief Wellness Officer Relationship Specialty Start Date End Date Ailin Araujo MD [address] [place] [phone] PCP - General Family Medicine 05/13/17 documented as of this encounter Additional Source Comments The information contained in this document represents components of the legal health record. It is not the complete legal health record.[facility]
--- OUTSIDE RECORDS SUMMARY | 2025-04-26 14:29 | XMS_ITS | Encounter Summary ---
Author Organization [facility] Address [address] [place] [address] Phone Care Team Providers Care Office Machine Technician Name Role Phone Ailin Araujo MD Primary Care Provider Encounter Details Date Type Department Care Team (Late st Contact Info) Description 06/06/2024 Procedure Pass [facility], Ct Scan - [address] [address] Social History Tobacco Use Types Packs/Day Years [...] we got money to buy more. Never True 06/08/2024 Within the past 6 months the food we bought just didn't last and we didn't have enough money to get more. Never True Residential Stability Answer Date Recor ded What is your housing situation today? I have justyna lennon 06/08/2024 How many times have you move d in the past 12 months? Zero (I did not move) 06/08/2024 Paying for Meds Answer Date Recorded Do you have trouble paying for medicines? No 06/08/2024 Paying Utility Bills Answer Date Record ed Do you have trouble paying your heating or elect ricity bill? No 06/08/2024 Transportation Answer Date Recorded Has the lack of transportati on kept you from medical appointments or from getting medications? No 06/08/2024 Digital Access Answer Date Recorded No 06/08/2024 Yes 06/08/2024 Do you have reliable internet access at home? Ye s 06/08/2024 Do you have a device (e.g., phone, tablet, computer) with a working camera? Yes 06/08/2024 Intimate Partner Violence Answer Date R ecorded Are you denied basic needs s uch as food, clothing, or medical care? No 06/08/2024 In the past 12 months have y ou been in a relationship with a person who hurts, threatens, or tries to control you? No 06/08/2024 Are you denied basic needs s uch as food, clothing, or medical care? No 06/08/2024 In the past 12 months have y ou been in a relationship with a person who hurts, threatens, or tries to control you? No 06/08/2024 Comments Unknown Sex and Gender Information Value Date Recorded Sex Assigned at Female 12/22/2020 4:54 PM EDT Legal Sex Female 9:49 AM EDT Gender Identity Female 03/04/2021 1:51 PM EDT Sexual Orientation Straight 10/05/2021 6: 22 PM EDT documented as of this encounter Functional Status * Calculated C-SSRS Risk Score (Lifetime/Recent) Answer Date of Assessment Author No Risk Indicated 06/08/2024 6:58 AM Jennyfer Burt RN * [place] Suicide Severity Rating Scale (Screener/Recent Self-Report) Question Answer Date of Assessment Author 1. Wish to be (Past 1 Month) No 06/08/2024 6:58 AM Kavon Burt RN 2. Non-Specific Active Suicidal Thoughts (Past 1 Month) No 06/08/2024 6:58 AM Kavon Burt RN 6. Suicidal Behavior (Lifetime) No 06/08/2024 6:58 AM Kavon Burt RN documented as of this encounter Plan of Treatment Upcoming Encounters Date Type Department Care Team (Late st Contact Info) Description 06/03/2025 11:00 AM EST Office Visit [facility] Neurology [address] [place] [address] Natalie Syed FNP [address] [facility], 2nd [place] [address] [email or web address] 12/18/2025 11:30 AM EDT Office Visit [facility] 22 [facility] 3rd Floor, [address] [place] [address] Angelic Csear DNP 22 [facility], [address] [address] [email or web address] documented as of this encounter Visit Diagnoses Not on filedocumented in this encounter Additional Health Concerns Infection Onset Date Last Indicated Resolved Time CoV-Risk Comment:Per note documentation 06/06/2024 06/06/2024 10:40 AM EST CoV-Risk 08/31/2024 08/31/2024 09/11/2024 1:23 AM EST documented as of this encounter Care Teams Office Machine Technician Relationship Specialty Start Date End Date Ailin Araujo MD [address] [place] [phone] PCP - General Family Medicine 05/13/17 documented as of this encounter Additional Source Comments The information contained in this document represents components of the legal health record. It is not the complete legal health record.[facility]
--- OUTSIDE RECORDS SUMMARY | 2025-04-26 14:29 | XMS_ITS | Encounter Summary ---
Author Organization [facility] Address [address] [facility] [address] [place] [address] Phone Care Team Providers Care Sales And Catering Coordinator Name Role Phone Ailin Araujo MD Primary Care Provider Encounter Details Date Type Department Care Team (Late st Contact Info) Description 08/02/2022 Procedure Pass [facility], Ct Scan - [address] [address] Social History Tobacco Use Types Packs/Day Years [...] Unable or Declines to Respond No 07/29/2022 Comments Unknown Sex and Gender Information Value Date Recorded Sex Assigned at Female 12/22/2020 4:54 PM EDT Legal Sex Female 9:49 AM EDT Gender Identity Female 03/04/2021 1:51 PM EDT Sexual Orientation Straight 10/05/2021 6: 22 PM EDT documented as of this encounter Functional Status * Calculated C-SSRS Risk Score (Lifetime/Recent) Answer Date of Assessment Author No Risk Indicated 08/02/2022 5:32 AM Darryl Henriquez RN * [place] Suicide Severity Rating Scale (Screener/Recent Self-Report) Question Answer Date of Assessment Author 1. Wish to be (Past 1 Month) No 023 5:32 AM Darryl Henriquez RN 2. Non-Specific Active Suici luis Thoughts (Past 1 Month) No 08/02/2022 5:32 AM Sohail Henriquez RN 6. Suicidal Behavior (Lifetime) No 5:32 AM Darryl Henriquez RN documented as of this encounter Plan of Treatment Upcoming Encounters Date Type Department Care Team (Late st Contact Info) Description 06/03/2025 11:00 AM EST Office Visit [facility] Neurology [address] [place] [address] Natalie Syed, NATA [address] [facility], 2nd [place] [address] 12/18/2025 11:30 AM EDT Office Visit [facility] [address] [place] [address] [address] [facility], [address] [place] [address] Angelic Cesar DNP 22 [facility], [address] [address] documented as of this encounter Visit Diagnoses Not on filedocumented in this encounter Additional Health Concerns Infection Onset Date Last Indicated Resolved Time CoV-Risk 07/20/2023 07/20/2023 07/31/2023 1:22 AM EST CoV-Risk Comment:Per note documentation 06/06/2024 06/06/2024 10:40 AM EST CoV-Risk 08/31/2024 08/31/2024 09/11/2024 1:23 AM EST documented as of this encounter Care Teams Sales And Catering Coordinator Relationship Specialty Start Date End Date Ailin Araujo MD [address] [place] [phone] PCP - General Family Medicine 05/13/17 documented as of this encounter Additional Source Comments The information contained in this document represents components of the legal health record. It is not the complete legal health record.[facility]
--- OUTSIDE RECORDS SUMMARY | 2025-04-26 14:29 | XMS_ITS | Encounter Summary ---
Author Organization [facility] Address [address] [facility] [address] [place] [address] Phone Care Team Providers Care Web Ui Designer Name Role Phone Ailin Araujo MD Primary Care Provider Encounter Details Date Type Department Care Team (Late st Contact Info) Description 08/11/2022 Procedure Pass [facility], Ct Scan - [address] [address] Social History Tobacco Use Types Packs/Day Years [...] Date of Assessment Author No Risk Indicated 08/11/2022 9:11 PM Candace Harris RN * [place] Suicide Severity Rating Scale (Screener/Recent Self-Report) Question Answer Date of Assessment Author 1. Wish to be (Past 1 Month) No 023 9:11 PM Candace Harris RN 2. Non-Specific Active Suici luis Thoughts (Past 1 Month) No 08/11/2022 9:11 PM Jody Harris RN 6. Suicidal Behavior (Lifetime) No 9:11 PM Candace Harris RN documented as of this encounter Plan of Treatment Upcoming Encounters Date Type Department Care Team (Late st Contact Info) Description 06/03/2025 11:00 AM EST Office Visit [facility] Neurology [address] [place] [address] Natalie Syed FNP 15 [facility], 2nd [place] [address] [email or web address] 12/18/2025 11:30 AM EDT Office Visit [facility] [address] [place] [address] [address]rd [facility], [address] [place] [address] Angelic Cesar DNP 22 [facility], [address] [address] [email or web address] documented as of this encounter Visit Diagnoses Not on filedocumented in this encounter Additional Health Concerns Infection Onset Date Last Indicated Resolved Time CoV-Risk 07/20/2023 07/20/2023 07/31/2023 1:22 AM EST CoV-Risk Comment:Per note documentation 06/06/2024 06/06/2024 10:40 AM EST CoV-Risk 08/31/2024 08/31/2024 09/11/2024 1:23 AM EST documented as of this encounter Care Teams Web Ui Designer Relationship Specialty Start Date End Date Ailin Araujo MD [address] [place] [phone] PCP - General Family Medicine 05/13/17 documented as of this encounter Additional Source Comments The information contained in this document represents components of the legal health record. It is not the complete legal health record.[facility]
--- OUTSIDE RECORDS SUMMARY | 2025-04-26 14:29 | XMS_ITS | Clinical Summary ---
Author Organization [facility] Address [address] [address] Phone Care Team Providers Care Dialysis Patient Care Technician Name Role Phone Ailin Araujo MD Primary Care Provider Allergies Active Allergy Reactions Criticality Noted Date Comments Aspirin Other (See Comments) 01/21/2017 Bleeding Codeine Rash Low 01/21/2017 Divalproex 05/07/2022 Other reaction(s): Drug-induced liver injury Gabapentin Swelling 12/22/2017 Iodinated Contrast Media Itching,Rash Low Other reaction(s): itchy Latex 08/27/2021 Macadamia Nut Anaphylaxis High 02/05/2023 Metoclopramide 11/14/2017 Penicillins Anaphylaxis High 01/21/2017 Metoclopramide Hcl Tardive Dyskinesia High 8 Sulfa (Sulfonamide Antibiotics) 11/13/2020 Other reaction(s): Other (see comments) Tizanidine Hypotension 02/13/2024 Venom-Honey Bee Anaphylaxis High 11/13/2020 Medications * This document contains information received from the source organization and may not represent a complete record from that organization. EPINEPHrine 0.3 mg/0.3 mL auto-injector 0.3 mg as needed. Active albuterol 90 mcg/actuation inhaler Inhale 1 puff into the lungs every 4 (four) hours as needed for shortness of breath/dyspne a. 18 g 3 Active loperamide (IMODIUM) 2 mg capsule Take 1 capsule (2 mg total) by mouth 2 (two) times a day as needed for diarrhea. 30 capsule 3 Active bumetanide (BUMEX) 0.5 MG tablet Take 1 tablet (0.5 mg total) by mouth 2 (two) times a day (once in the morning and once in the afternoon). 60 tablet 1 3 Active clonazePAM (KLONOPIN) 0.5 MG disintegrating tablet Take 1 tablet (0.5 mg total) by mouth 2 (two) times a day as needed. 60 tablet 1 3 Active montelukast (SINGULAIR) 10 mg tablet Take 1 tablet (10 mg total) by mouth every morning. 30 tablet 1 3 Active SUMAtriptan (IMITREX) 100 MG tablet Take 1 tablet (100 mg total) by mouth daily as needed for migraine. Can repeat dose in 2 hours if needed. Do not exceed 2 doses in a 24 hour period. Max dose 200mg/ day 30 tablet 3 Active DULoxetine (CYMBALTA) 40 mg capsule Take 40 mg by mouth daily. Active escitalopram oxalate (LEXAPRO) 10 MG tablet Take 15 mg by mouth daily. 4 Active oxyCODONE HCl 10 mg Tab take 1 tablet by mouth five times daily Active omeprazole (PRILOSEC) 20 MG capsule Take 1 capsule by mouth every morning. 5 Active levETIRAcetam (KEPPRA) 500 MG tabletIndications: Convulsions, unspecified convulsion type Take 2.5 tablets (1,250 mg total) by mouth 2 (two) times a day. 150 tablet 2 5 Active butalbital-acetami nophen-caffeine (FIORICET) 50-300-40 mg per capsule Take 1 capsule by mouth as needed. 5 Active ondansetron (ZOFRAN) 8 MG tablet Take 8 mg by mouth 3 (three) times a day. Active ARIPiprazole (ABILIFY) 10 MG disintegrating tablet Take 5 mg by mouth daily. 5 Active dextroamphetamine- amphetamine (ADDERALL) 5 mg Tab Take 5 mg by mouth as needed. 5 Active rimegepant (NURTEC) 75 mg tabletIndications: Intractable migraine with aura with status migrainosus Take 1 tablet (75 mg total) by mouth every other day. 16 tablet 11 5 Active Active Problems Problem Noted Date Diagnosed Date Varicose veins of bilateral lower extremities with other complications 04/23/2025 Assessment & Plan (04/23/2025 9:05 AM EDT): She is pretty symptomatic from this worse on the left than the right she has 10 seconds of reflux on that left great saphenous vein which we will ablate with the VenaSeal system I will see her after the postintervention ultrasound is performed I explained the risk benefits and alternatives to regarding this Left leg pain 04/23/2025 Paroxysmal atrial fibrillation 12/18/2024 Assessment & Plan (12/18/2024 11:37 AM EDT): Was found during hospitalization on 11/26/2024. Patient states the episode lasted for 2 days. We will request these records. Patient cannot take oral anticoagulation due to a bleeding disorder and cannot take aspirin. Patient is not a candidate for watchman due to the inability to take short-term anticoagulation or dual antiplatelet therapy. Antidysrhythmic therapy is also not recommended given her medications that prolong QT. She additionally has liver dysfunction prohibiting her from taking medications that will also affect her liver such as amiodarone. Her blood pressure is on the lower end of normal and I do not recommend adding a beta-sea or a calcium channel sea at this time. Will order an MCT x 30 days to evaluate for atrial fibrillation. It is likely that we will not be able to add anything to her regimen. I will call the patient with her results. Patient will follow-up with me in 1 year Plan: MCT x 30 days Follow-up with me in 1 year Functional neurological symp dio disorder with attacks or seizures 11/21/2024 Assessment & Plan (11/22/2024 4:53 PM EDT): Patient with history of seizures as well as pseudoseizures. [place] [facility] [place]. Neuro notes reviewed. Presented with postictal picture after son noted noises consistent with previous seizure activity the night before. He has mobility issues and was not able to witness. Her chart indicates that she has a history of prolonged postictal syndrome. CT brain and neck showed no acute pathology, lab work was unremarkable other than a slightly elevated alkaline phosphatase, no fever, stable vital signs in the emergency department. The patient had been prescribed Depakote during her last hospital stay but she declined to take it due to LFT abnormalities on in the past, her primary neurologist Dr Cardenas agreed. These notes are available in the telephone triage system in [employer]. She also apparently had a abnormal EEG however both changes were not clearly epileptiform. EEG pending Keppra continued Keppra level pending Workup for infection unremarkable This may have been a pseudoseizure related to recent stress of recently diagnosed metastatic breast cancer. She had a history of breast cancer, in remission, but was recently diagnosed with bony mets per her report. Followed at [facility] and [facility]. Once EEG is available, would follow-up with her neurology team at [facility] for recommendations. Assessment & Plan (11/21/2024 5:36 PM EDT): Patient with history of seizures, some documents indicate functional seizure disorder with breakthrough seizure events including last month at [facility] and in September at [facility]. [facility] notes indicate due to noncompliance with Keppra and ED notes indicate concern for UTI at [facility]. Patient lives with her son, was suspected to have seizure-like activity last night around midnight, he has mobility issues but could hear her moaning and sounding as though she had a seizure last night and felt she had an unsteady gait today with lack of coordination and possible fall. CT brain and neck showed no acute pathology, lab work was unremarkable other than a slightly elevated alkaline phosphatase, no fever, stable vital signs in the emergency department. The patient had been prescribed Depakote during her last hospital stay but she declined to take it due to LFT abnormalities on in the past, her primary neurologist Dr Cardenas agreed. These notes are available in the telephone triage system in [employer]. She also apparently had a abnormal EEG but unclear that whether it had epileptiform discharges. Patient is an unreliable historian, disoriented, minimal answers in the ED but did say no to any pain. Unknown if she has had any recent pulmonary or urinary symptoms or diarrhea We will check an EEG and continue Keppra, seizure precautions. Keppra level, rule out infection Altered mental status, unspe cified altered mental status type 06/06/2024 Encephalopathy acute 06/06/2024 Assessment & Plan (06/07/2024 8:40 PM EST): -Unclear etiology, may be postictal versus metabolic from medications, versus other causes -No witnessed seizures at home but found lethargic -Last hospitalization with similar presentation in October -CT head showed no acute pathology -Labs showed mild hypernatremia -Unable to perform EEG today due to agitation. -Neuro consult if symptoms not improving -Utox positive for barbiturates, benzos, and opiates which is explained by her medication list, unclear if she is able to take extra doses of her medication reportedly it is kept in a locked box and distributed by a alpaca farmer. - spoke with son at length today, and he states that she has been acting normally until yesterday (maybe more affectionate that usual), and reports that she seems to go non-verbal and agitated as part of her post-ictal transition. He also mentioned that she often has headaches / migraines as her first complaint after seizures, and agrees with me that we should try and treat her headaches (she was seen holding her head today). - will defer EEG till when she is more cooperative - will give toradol 15mg q6h x 5 doses, and sumatriptan 6mg SC x 1. Assessment & Plan (06/06/2024 7:00 PM EST): -Unclear etiology, may be postictal versus metabolic from medications, versus other causes -No witnessed seizures at home but found lethargic -Last hospitalization with similar presentation in October -CT head showed no acute pathology -Labs showed mild hypernatremia -Follow up EEG if available over the weekend -Neuro consult if symptoms not improving -Utox positive for barbiturates, benzos, and opiates which is explained by her medication list, unclear if she is able to take extra doses of her medication reportedly it is kept in a locked box and distributed by a alpaca farmer Seizure 10/19/2023 Assessment & Plan (10/19/2023 9:10 PM EDT): Seizure versus PNES -Possibility patient had a PNES or seizure at home, according to son most likely PNES due to anxiety as well as lack of sleep -Unclear history, has had multiple EEGs and EMU studies performed in the past, with some documented temporal lobe epileptiform discharges as well as underlying bipolar disorder and PNES history. -Has had prolonged postictal state in the ER, with a period of being aggressive, as well as pulling out IVs subsequently improving and currently alert and oriented. -Neurology consulted recs appreciated -Basic labs did indicate ROBEL, CT scan of the head and a chest x-ray was unremarkable, urinalysis and toxicology screen are currently pending Plan: Recommend to continue Keppra per neurology recommendations Routine EEG ordered and pending Obtain toxicology and urinalysis Resume home medications as tolerated Seizure precautions ROBEL (acute kidney injury) 10/19/2023 Assessment & Plan (10/19/2023 9:10 PM EDT): ROBEL -Presenting with 1.60 improved with IVF hydration -Suspect secondary to prerenal azotemia Plan: Obtain urinalysis Encourage p.o. hydration Repeat BMP in the a.m. Venous insufficiency 08/11/2023 Assessment & Plan (12/18/2024 11:40 AM EDT): Lower extremity edema noted on exam bilaterally. Patient has superficial varicosities present. Will get an ultrasound of her lower extremities and have her follow-up with Dr. Anurag pimentel in 6 months or after ultrasound for evaluation. Verbalized understanding. Plan: Bilateral duplex venous ultrasound Follow-up with Dr. Anurag galvan Depression 02/05/2023 Assessment & Plan (11/22/2024 4:53 PM EDT): We will continue patient's Wellbutrin and SSRI Holding olanzapine today, resume when stable Assessment & Plan (11/21/2024 5:36 PM EDT): We will continue patient's Wellbutrin and SSRI, will hold olanzapine and other potentially sedating medications in the setting of altered mental status- medications are confirmed by the dispense report and with pharmacy Assessment & Plan (06/07/2024 8:40 PM EST): -While patient has AMS and is unable to take oral meds klonopin, cymbalta, lexapro, and zyprexa are on hold Assessment & Plan (06/06/2024 7:00 PM EST): -While patient has AMS and is unable to take oral meds klonopin, cymbalta, lexapro, and zyprexa are on hold Orthostatic hypotension 01/20/2023 Assessment & Plan (04/23/2025 9:05 AM EDT): No symptoms of dizziness Assessment & Plan (06/07/2024 8:40 PM EST): -Unable to take po, midodrine on hold Assessment & Plan (06/06/2024 7:00 PM EST): -Unable to take po, midodrine on hold Assessment & Plan (01/27/2023 9:23 AM EDT): SBP 90's, per pt her baseline is SBP 90-100 at home. The patient always has some degree of dizziness when she stands up and she reports this to be at baseline and not bothersome. Continue monitoring BP, with tapering of prazosin if possible. If not and orthostatic hypotension becomes bothersome or barrier to treatment, could consider use of midodrine for BP support in future. Continue bumex as above BID, hold for SBP <95. Bilateral lower extremity edema 01/20/2023 Assessment & Plan (12/18/2024 11:40 AM EDT): Bilateral lower extremity venous ultrasound ordered. Pending results. Assessment & Plan (01/27/2023 9:23 AM EDT): Patient has a history of chronic bilateral LE edema. Orthostatic vital signs have been negative. TSH slightly elevated at 4.46, Likely sick euthyroid, T4 just below normal T3 nrml. Discussed with patient plan for follow up in 6 weeks as outpatient once acute hospitalization resolved. proBNP of 4,370. Echo showed sinus rhythm normal ejection fraction no regional wall motion abnormalities, no evidence of . Trace mitral regurgitation, PA pressure normal, no prior available for comparison. Impaired left ventricular relaxation R> L LE edema ultrasound completed, no DVT Patient does have chronic mild lower extremity edema, with no acute CHF exacerbation. -Recommendation to continue on Bumex as tolerated with hold parameters in place for systolic blood pressure less than 95. -Encourage oral fluids. -Would recommend avoiding antihypertensive medication with substitution for prazosin if possible. This was discussed with Dr. Abrams, and the medication is essential for prevention of her nightmares. We did discuss clonidine which would also contribute to orthostatic hypotension. If prazosin is needed, could continue at low-dose, with continued careful management of sodium and diuretics. -Continue weekly weights. Dry wt of about 125 to 130lbs, currently 132 -Established with outpatient cardiology, outpatient surveillance appropriate Medicine to sign off. Please reconsult if needed. Posttraumatic stress disorder 01/11/2023 Overdose, undetermined intent, initial encounter 01/07/2023 Prolonged QT interval 01/07/2023 Assessment & Plan (01/10/2023 4:28 PM EDT): Noted to have prolonged QTc at time of admission. This is improving Most recent EKG showed a QTc of 489 -- We will continue to monitor Palpitations 11/15/2022 Assessment & Plan (04/23/2025 9:04 AM EDT): I went over her MCT monitor showing no evidence of A-fib Assessment & Plan (11/15/2022 2:37 PM EDT): Patient requested a consultation with cardiology as she thought she had atrial fibrillation in the ER. I reviewed all her ER notes from July and none of the notes that showed mentioned atrial fibrillation. The referral from PCP also did not send any evidence of atrial fibrillation. At this point I do not think she had any atrial fibrillation there may be some miscommunication. In order to check it further we we will order a 30-day event monitor. We will also do an echocardiogram Abnormal heart rhythm 11/15/2022 Assessment & Plan (01/27/2023 9:22 AM EDT): Pt with possible PAF although not documented in chart and she was seen by Dr. Suarez on 11/30 who opined: At this point I do not think she had any atrial fibrillation there may be some miscommunication. In order to check it further we we will order a 30-day event monitor. Prior to admission she was due for 30-day event monitor and echo. She was also scheduled for a nuclear stress test and states she does have firm plans for follow-up. -Outpatient cardiology follow-up needed after discharge. No further inpatient testing. Assessment & Plan (11/15/2022 2:38 PM EDT): Patient requested a consultation with cardiology as she thought she had atrial fibrillation in the ER. I reviewed all her ER notes from July and none of the notes that showed mentioned atrial fibrillation. The referral from PCP also did not send any evidence of atrial fibrillation. At this point I do not think she had any atrial fibrillation there may be some miscommunication. In order to check it further we we will order a 30-day event monitor. We will also do an echocardiogram Dyspnea 11/15/2022 Assessment & Plan (11/15/2022 2:40 PM EDT): Patient states she has dyspnea for long time. And she also has bronchial asthma. Her dyspnea gets better with inhalers. But she still wants to find out if it is because of heart. I told her we can do a stress test but she cannot walk on the treadmill because of her instability of gait. So the next thing would be a Lexiscan stress test I told her she should bring her inhalers because it can make her asthma worse and she will do that. Acute cystitis without hematuria 09/28/2022 Assessment & Plan (01/10/2023 4:27 PM EDT): At time of admission, UA was positive for pyuria. She was started on ceftriaxone Cultures growing gram-negative rods. This could represent asymptomatic bacteriuria versus UTI. Prior urine cultures in September demonstrated a pansensitive E. coli. Today, she is reporting dysuria and frequency -- Give third dose of ceftriaxone for cystitis Assessment & Plan (09/29/2022 2:44 PM EDT): With her pyuria and reports from her son of frequent urination, and her complaints today of dysuria, it seems that this is likely acute cystitis. She received one dose of IM ceftriaxone due to her behavior, but has settled down and can continue IV Hypernatremia 05/08/2022 Assessment & Plan (06/07/2024 8:40 PM EST): -Continue IV overnight and repeat labs in am Assessment & Plan (06/06/2024 7:00 PM EST): -Continue IV overnight and repeat labs in am Assessment & Plan (05/09/2022 4:08 PM EDT): Hypernatremia secondary to diminished p.o. intake, improved Level still mildly elevated at 147 --She is receiving D5W x500 cc -- Check BMP in a.m. Stage 3a chronic kidney disease 04/02/2022 Assessment & Plan (11/22/2024 4:53 PM EDT): Stable Assessment & Plan (11/21/2024 5:36 PM EDT): Appears to be at baseline we will monitor closely Assessment & Plan (01/27/2023 9:21 AM EDT): Patient has a history of CKD stage 3a and her Cr is 1-1.5 at baseline. Followed by Dr. Marbin Gardiner as outpatient. Cr 1.1, K 4.6 on most recent labs 01/23. Recheck in a.m., if stable, no need for further inpatient monitoring. No need for further inpatient monitoring. Assessment & Plan (08/12/2022 6:41 AM EST): Evidence of acute kidney injury with creatinine 1.6. Likely exacerbated by her diuretic use of Bumex. Per son, patient has no history of congestive heart failure, being prescribed Bumex for lower extremity edema. Possibly contributing to her encephalopathy. -Holding Bumex -Gentle hydration with LR 100 cc/h x 1 L -Repeat BMP Assessment & Plan (05/31/2022 8:26 PM EST): iso diarrhea. Resolved after IVF suggesting prerenal etiology. Assessment & Plan (04/02/2022 1:09 PM EDT): Creatinine has bumped from a baseline of [...] and iodinated contrast is much as possible Opiate use 01/20/2022 Assessment & Plan (11/22/2024 4:53 PM EDT): Chronic opiate use confirmed by PDMP, normally takes oxycodone 10 mg 5 times a day as needed, also takes clonazepam 0.5 mg 3 times daily as needed and Fioricet 3 times daily as needed - As needed oxycodone resumed, 10 mg every 6 hours as needed (slightly lower dose) -Clonazepam as needed resumed -Monitor for sedation Assessment & Plan (11/21/2024 5:36 PM EDT): Chronic opiate use confirmed by PDMP, normally takes oxycodone 10 mg 5 times a day as needed, also takes clonazepam 0.5 mg 3 times daily as needed and Fioricet 3 times daily as needed I will place her opiates on hold right now as she does appear altered still, unable to speak full sentences and sedated appearing. Will hold clonazepam for the present time although would restart as soon as able as it appears she takes these fairly regularly Assessment & Plan (05/09/2022 4:07 PM EDT): She feels she is developing some withdrawal symptoms. PDMP reviewed. Last oxycodone prescription filled was on 05/04, 15 mg tabs x180 for a 30-day supply -- Per PDMP she has been prescribed 15 mg every 4 hours as needed. And recent episodes of falls and unresponsiveness de-escalation of opioid regimen may be considered. Will defer to her usual prescriber Assessment & Plan (01/20/2022 7:23 PM EDT): - initially oxycodone held due to concern cont exacerbate/be contributing to sedation - post ictal seems like more likely explanation - gradually resuming home regimen - monitor closely for sedation - kept in hospital tonight to make sure tolerates opiate increase without recurrence of unresponsiveness, continuous pulse ox monitoring CKD (chronic kidney disease), stage III 01/20/20 22 Assessment & Plan (01/10/2023 4:28 PM EDT): She has CKD with baseline creatinine between 1-1 0.5. ROBEL at time of admission with creatinine 1.9, improved -- Renal function back to baseline. On further review of medications, it looks like she was using Bumex intermittently as needed. We will hold on additional diuretic for now Assessment & Plan (01/20/2022 7:21 PM EDT): - at baseline Seizure disorder 11/14/2017 Assessment & Plan (06/07/2024 8:40 PM EST): -Unclear if patient has a true seizure disorder versus psychogenic nonepileptic seizures -She is on Keppra which will be continued IV while she is n.p.o. -Seizure precautions Assessment & Plan (06/06/2024 7:00 PM EST): -Unclear if patient has a true seizure disorder versus psychogenic nonepileptic seizures -She is on Keppra which will be continued IV while she is n.p.o. -Seizure precautions Assessment & Plan (01/10/2023 4:30 PM EDT): She has a history of seizures, functional versus epileptic, followed by neurology -- Continue Keppra. Reviewed with pharmacy. Given improvement in renal function, resume dose of 1000 mg twice daily Assessment & Plan (09/28/2022 8:06 PM EDT): Continue with home medications. Assessment & Plan (05/31/2022 8:31 PM EST): Unclear etiology of epilepsy, concern for non epileptic seizures in chart. Follows with epilepsy specialist Dr Cardenas. Patient's keppra was recently increased to 1000mg bid earlier this month. Discussed case with neurology, advised picture is most consistent with tox/metabolic picture. Advised EEG prior to discharge and close follow up with the patient's neurologist. [ ] EEG tomorrow, unavailable today [ ] fu keppra level [ ] outpatient neurology follow up, inquire if able to make appt sooner than currently scheduled. Consider testing for paraneoplastic antibodies if concern for new types of episodes or seizures Assessment & Plan (04/02/2022 12:11 PM EDT): It seems entirely possible that this patient has had a seizure. Apparently she had 1 in February, yet was driving anyway. She was due to be in [place] today for an appointment with an epileptologist, who ever communicated with electronically. Still appears to be either postictal or conceivably in a nonconvulsive status. Noncon head CT did not reveal any acute changes or signs of bleeding. We will continue Keppra, will use IV if necessary given her mental status We will get an EEG We will get a Keppra level We will continue to assess for infectious etiology to these recurrent seizures Low threshold for ABG with reduced level of consciousness Breast CA Assessment & Plan (01/10/2023 4:30 PM EDT): She has a history of breast cancer. -- Will need routine follow-up with her oncologist Assessment & Plan (09/29/2022 2:46 PM EDT): Stage 4, treated [address] [facility]. 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 Assessment & Plan (08/12/2022 6:45 AM EST): Diagnosis unclear at this time. Per son, he was told by patient that she was receiving treatment at [facility]. -We will need to obtain records from [facility] for further clarification. Resolved Problems Problem Noted Date Diagnosed Date Resolved Date Psychogenic nonepileptic seizure 05/15/2023 05/15/2023 Altered mental status, unspe cified altered mental status type 05/13/2023 05/15/2023 Altered mental status 01/09/20232022 Assessment & Plan (01/10/2023 4:27 PM EDT): Presented to the ED with altered mental status and concern for polysubstance ingestion. Family was concerned she may have taken her son's medication after she was left alone for a short period of time. In the ED she had dilated pupils. Urine toxicology was positive for oxycodone which she is prescribed. She was treated initially in the ICU with improvement Per psychiatry notes, patient did endorse taking son's medications. RN who administers medications had left the home briefly and the patient had access to his lock box. Following the incident, pills were counted with 19 missing Dilaudid (6 found in her purse) and 22 missing baclofen --Mental status has improved. Patient appears at her baseline --Psychiatry and [facility] follow-up appreciated --Cymbalta 20 mg daily --Cont 1:1 --Transfer to [facility] when bed available --cont telemetry Delirium 09/28/2022 09/30/2022 Assessment & Plan (09/29/2022 2:45 PM EDT): Due to UTI. Required IM Zyprexa Tuesday night and some IV Zyprexa Tuesday night This is worked well and she is directable, but still becomes agitated if disturbed. Healthcare proxy invoked. By Tuesday morning she was back to baseline. We'll see if she owns again. Loss of consciousness 05/14/20222022 AMS (altered mental status) 01/19/2022 08/13/2022 Assessment & Plan (08/12/2022 6:45 AM EST): Patient has had multiple admissions over the past 7 months with similar presentation of altered mental status concerning for seizure activity and prolonged hypersomnolent phase. Patient has been evaluated multiple times with neurology including EEGs and MRIs without significant findings. Patient has been on Keppra 1 g twice daily but it is unclear if patient has been compliant with her medications. Differentials include epilepsy vs FND vs drug-induced encephalopathy. Similarly her presentation may be secondary to toxic/metabolic encephalopathy secondary to dehydration as patient again has ROBEL. No other signs or symptoms of infectious etiology. No evidence of leukocytosis or fever. UA negative chest x-ray negative. COVID-negative. U tox consistent with oxycodone except still positive for amphetamine. Per son, this should have been discontinued by neurology. -Holding oral medications at this time -N.p.o. -Gentle IV fluids with LR 100 cc/h x 1 L -Continue Keppra 1 g IV twice daily -We will order EEG -We will obtain a Keppra level -Aspiration and seizure precaution - CBC, CMP, add TSH w/ reflex in am -[place] [facility] [place] C[place] Assessment & Plan (05/09/2022 4:06 PM EDT): Presented to [facility] after concern for seizure and prolonged period of hypersomnolence following the episode. Mental status improved markedly on the afternoon of 05/08. Since this time she has remained at her baseline. Shaking episode last night was not felt to represent an epileptic seizure. MRI unremarkable, no signs of HE[employer] ECONOMIST metastases She was concerned about the possibility of a left rib fracture. X-ray is negative and more likely soft tissue injury -- Continue Keppra as scheduled. Level high normal range -- Seizure precautions --EEG if this can be obtained before discharge --Will need follow-up with neurology team in [place]. She was due to see them yesterday. The appointment has been rescheduled for 05/14 Assessment & Plan (04/02/2022 12:24 PM EDT): Patient's mental status could be depressed due to a post ictal state. However she is also on multiple sedating medications, and our med list does not seem necessarily up-to-date for her either. For now we will hold her Soma and her oxycodone until I can verify what the doses are. I will hold the Soma until her mental status is improved, likely the same with the oxycodone Throughout the hospitalization we will keep polypharmacy in mind as evaluating her baseline and what medication she should be taking going forward. Assessment & Plan (01/20/2022 7:20 PM EDT): - presented with decreased responsiveness, back to baseline - eeg showed slowing (diffuse generalized theta slowing) but not epileptiform discharges - no acute infection found thus far - likely discharge in am with outpt neurology follow up Right leg swelling 01/19/2022 Assessment & Plan (01/20/2022 7:20 PM EDT): - u/s right leg negative for DVT Hallucination 12/05/2020 09/28/2022 Generalized nonconvulsive seizures 07/21/2018 05/15/2023 Encounters Date Type Department Care Team Description 04/23/2025 8:45 AM EDT Office Visit [facility] [address], [address] [place] [address] Dante Osborn, Varicose veins of bilateral lower extremities with other complications (Primary Dx); Left leg pain; Palpitations; Orthostatic hypotension 04/17/2025 1:48 PM EDT - 04/17/2025 11:59 PM EDT Hospital Encounter [facility] [address] [place] [address] Angelic Cesar DNP Discharge Disposition: Home or Self Care 04/09/2025 Telephone [facility] [address], [address] [place] [address] Angelic Cesar DNP 03/13/2025 Orders Only [facility] [address], [address] [place] [address] Angelic Cesar DNP 03/04/2025 11:00 AM EDT Office Visit [facility] Neurology [address] [place] [address] Natalie Syed, NATA Intractable migraine with aura with status migrainosus (Primary Dx) 02/08/2025 Telephone [facility] [address] [facility], 8th Floor, [address] [place] [address] Unknown, Hien, 01/30/2025 Telephone [facility] Endocrinology [address] [place] [address] Candace Hanna MA from Last 3 Months Immunizations Immunization Administration Dates Next Due COVID-19 (Pre-05/02) Pfizer Vaccine, Bivalent 12+ 04/03/2022 [id number] FORMULATION 04/20/2016 Hep A-Hep B 12/20/2012 INFLUENZA, SPLIT VIRUS, TRIVALENT PF 04/03/2016 INFLUENZA, SPLIT VIRUS, TRIV ALENT W/ PRESERVATIVE IM 05/20/2021,04/12/2019,04/17/2018,06/10,04/17/2015,04/15/2014,04/10/2013 ,03/28/2013,04/24/2012,04/14/2011 Influenza Quadrivalent MDCK Preservative Free IM 06/18/2020 Influenza Quadrivalent Prese rvative Free IM 04/03/2022 Influenza, Unspecified Formulation 04/20/2023,,05/06/2003 Influenza, whole 06/18/2020 Pneumococcal polysaccharide PPSV23 04/03/2014, Tdap 04/19/2022,02/06/2014 Social History Tobacco Use Types Packs/Day Years Used Date Smoking Tobacco: Some Days Cigarettes Smokeless Tobacco: Never Tobacco Cessation:Ready to Q uit: Not Asked; Counseling Given: Not Answered Comments:UPDATE: per pt she quit over 1 [...] Orientation Straight 10/05/2021 6: 22 PM EDT Last Filed Vital Signs Vital Sign Reading Time Taken Comments Blood Pressure 122/76 04/23/2025 8:49 AM EDT Pulse 90 04/23/2025 8:49 AM EDT Temperature 36.9 C (98.4 F) 11/23/2024 12:00 PM EDT Respiratory Rate 16 11/23/2024 12:00 PM EDT Oxygen Saturation 97% 04/23/2025 8:49 AM EDT Inhaled Oxygen Concentration 20.9% 11/17/2022 6 :00 AM EDT Weight 68.5 kg (151 lb) 04/23/2025 8:49 AM EDT Height 162.6 cm (5' 4.02 ) 04/23/2025 8:49 AM ED T Body Mass Index 25.91 04/23/2025 8:49 AM EDT Plan of Treatment Upcoming Encounters Date Type Department Care Team (Late st Contact Info) Description 06/03/2025 11:00 AM EST Office Visit [facility] Neurology [address] [place] [address] Natalie Syed FNP [address] [facility], 2nd [place] [address] 12/18/2025 11:30 AM EDT Office Visit [facility] [address] [facility] 3rd Floor, [address] [place] [address] Angelic Cesar DNP 22 [facility], [address] [address] Health Maintenance Due Date Last Done Comments SMOKING Hx and SMOKELESS TOBACCO SCREENING 1978 HEPATITIS C SCREENING 1983 HIV ONE-TIME SCREENING (18-65 YEARS) 1983 ZOSTER VACCINES (1 of 2) 01/09/1984 PAP SMEAR 1986 MAMMOGRAM 2005 COLOGUARD 2010 COLONOSCOPY 2010 COLORECTAL CANCER SCREENING 2010 FIT TEST 2010 FOBT 2010 SIGMOIDOSCOPY 2010 VIRTUAL COLONOSCOPY 2010 PNEUMOCOCCAL VACCINES (50+ years) (3 of 3 - PCV) 04/03/2015 04/03/2014, 02/23/2000 INFLUENZA VACCINE (#1) 2025 , 04/03/2022, 04/03/2022, Additional history exists COVID-19 VACCINE (2024- season) 2025 05/06/2023, 04/03/2022, 11/25/2021, Additional history exists DEPRESSION SCREENING 12/14/2025 12/14/2024, 12/15/19 25 SCREENING FOR DIABETES 11/23/2027 11/22/2024, 2022 LIPID PANEL 01/29/2028 01/28/2023 Adult Td,Tdap Booster 04/19/2032 04/19/2022, 014 RSV VACCINE (1 - 1-dose 75+ series) 01/09/2040 HEPATITIS A VACCINES Aged Out 12/20/2012 No long er eligible based on patient's age to complete this topic HIB VACCINES Aged Out No longer eligi ble based on patient's age to complete this topic MENINGOCOCCAL VACCINES (ACWY) Aged Out No longer eligible based on patient's age to complete this topic MENINGOCOCCAL VACCINES (B) Aged Out N o longer eligible based on patient's age to complete this topic Medical Devices Not on file Procedures Procedure Name Priority Date/Time Associated Diagnosis Comments US LOWER EXTREMITY VEINS DUPLEX COMPLETE (BILATERAL) Routine 04/17/2025 2:51 PM EDT Edema, unspecified type OUTSIDE MONITOR Routine 03/13/2025 12:03 PM EDT LIPID PANEL Routine 01/28/2023 6:10 AM EDT from Last 3 Months or Most Recently Relevant to Health Maintenance Results * US Lower Extremity Veins Duplex Complete (Bilateral) (04/17/2025 2:51 PM EDT) Height 163 cm Weight 69 kg RIGHT GREAT SAPH VEIN SAPHENO-FEM JUNCT VALVE CLOSURE TIME 2.6 sec GSV Sapheno-Femoral Junction Yoly AntPost 0.7 cm Prox Great Saphenous Vein Thigh Valve Closure Time 5.8 sec Prox Great Saphenous Vein Thigh Diameter Anterior-Corporate Treasurer ior 0.5 cm Mid Great Saphenous Vein Thigh Valve Closure Time 6.7 sec Mid Great Saphenous Vein Thigh Diameter Anterior-Corporate Treasurer ior 0.5 cm Dist Great Saphenous Vein Thigh Valve Closure Time 3.0 sec Dist Great Saphenous Vein Thigh Diameter Anterior-Corporate Treasurer ior 0.5 cm Knee Great Saphenous Vein Valve Closure Time 2.6 sec Knee Great Saphenous Vein Diameter Anterior-Corporate Treasurer ior 0.5 cm Prox Great Saphenous Vein Calf Valve Closure Time 0.7 sec Prox Great Saphenous Vein Calf Diameter Anterior-Corporate Treasurer ior 0.5 cm Popliteal Fossa GSV Anterior-Corporate Treasurer ior 0.2 cm Mid Small Saphenous Vein Calf Diameter Anterior-Corporate Treasurer ior 0.2 cm GSV Sapheno-Femoral Diameter Anterior-Corporate Treasurer ior 0.8 cm Prox Great Saphenous Vein Thigh Valve Closure Time 0.7 sec Prox Great Saphenous Vein Thigh Diameter Anterior-Corporate Treasurer ior 0.3 cm Mid Great Saphenous Vein Thigh Valve Closure Time 6.0 sec Mid Great Saphenous Vein Thigh Diameter Anterior-Corporate Treasurer ior 0.3 cm Dist Great Saphenous Vein Thigh Valve Closure Time 5.0 sec Dist Great Saphenous Vein Thigh Diameter Anterior-Corporate Treasurer ior 0.3 cm Knee Great Saphenous Vein Closure time 10.0 sec Knee Great Saphenous Vein Diameter Anterior-Corporate Treasurer ior 0.4 cm Prox Great Saphenous Vein Calf Valve Closure Time 2.0 sec Prox Great Saphenous Vein Calf Diameter Anterior-Corporate Treasurer ior 0.4 cm Left Great Saphenous Vein Popliteal Fossa Anterior-Corporate Treasurer ior 0.2 cm Mid Small Saphenous Vein Calf Valve Closure Time 0.6 sec Mid Small Saphenous Vein Calf Diameter Anterior-Corporate Treasurer ior 0.2 cm Anatomical Region Laterality Modality Ultrasound Narrative 04/18/2025 1:54 PM EDT Right Great Saphenous Vein reflux is detailed above. Max reflux time is 6.7 seconds at the mid thigh location. Small Saphenous Vein no reflux detected. There is no evidence of DVT. There is no evidence of Deep Vein reflux. Left Great Saphenous Vein reflux is detailed above. Max reflux time is 10 seconds at the knee location. Small Saphenous Vein reflux lasting 0.6 seconds. There is no evidence of DVT. There is evidence of Deep Vein reflux. Max is 2 seconds at mid thigh SFV. Conclusion: There is significant venous insufficiency in the right GSV reflux time up to 6.7 seconds. Significant venous insufficiency in the left GSV reflux time up to 10 seconds. Lower Venous Left COMMON FEMORAL VEIN normal compressibility and flow characteristics; Reflux lasting 1 second. FEMORAL VEIN normal compressibility and flow characteristics; Reflux lasting 2 seconds. POPLITEAL VEIN normal compressibility and flow characteristics GREAT SAPHENOUS VEIN REFLUX FINDINGS Sapheno-Femoral Junction: no reflux Proximal thigh: reflux present Mid thigh: reflux present Distal thigh: reflux present Knee: reflux present Proximal calf: reflux present SMALL SAPHENOUS VEIN REFLUX FINDINGS Mid calf: reflux present Lower Venous Right COMMON FEMORAL VEIN normal compressibility and flow characteristics FEMORAL VEIN normal compressibility and flow characteristics POPLITEAL VEIN normal compressibility and flow characteristics GREAT SAPHENOUS VEIN REFLUX FINDINGS Sapheno-Femoral Junction: reflux present Proximal thigh: reflux present Mid thigh: reflux present Distal thigh: reflux present Knee: reflux present Proximal calf: reflux present SMALL SAPHENOUS VEIN REFLUX FINDINGS Popliteal Fossa: no reflux Mid calf: no reflux Introductory Comments Techniques used for this study included: color flow Doppler and spectral waveform Doppler. [facility] CV US VASCULAR Final Result * Outside Monitor Report Only (03/13/2025 12:03 PM EDT) [facility] CV CARDIAC SERVICES ORDERABLES F inal Result * (ABNORMAL) Lipid panel (01/28/2023 6:10 AM EDT) HDL 53 mg/dL [facility] Comment: Interpretation <40 mg/dL: Low HDL cholesterol (major risk factor for CHD) Greater than or equal to 60 mg/dL: High HDL cholesterol ( negative risk factor for CHD) HDL - cholesterol is affected by a number of factors, e.g. smoking, excerise, hormones, sex and age. CHOLESTEROL 142 0 - 240 mg/dL [facility] TRIGLYCERIDES 44 30 - 160 mg/dL [facility] LDL 80 50 - 129 mg/dL [facility] Comment: LDL levels in terms of risk for coronary heart disease: <100 mg/dL: Optimal 100-129 mg/dL: Near or above optimal 130-159 mg/dL: Borderline high 160-189 mg/dL: High >190 mg/dL: Very High CARDIAC RISK RATIO 2.7(L) 3.3 - 4.4 [facility] Blood 01/28/2023 6:10 AM EDT 01/28/2023 6:40 AM EDT us Bonnie Abrams MD LAB BLOOD ORDERABLES Final Re sult [facility] [address] [place] [address] from Last 3 Months or Most Recently Relevant to Health Maintenance Insurance MEDICARE PART A & B [facility] MEDICARE PART A & [facility] A & B [address] [place], [place] [address]HE[place] [id number] MEDICARE PART A & B [facility] [place] [address] MEDICARE PART A & B [address] [place], [place] [address]HEALTH MEDICARE PART A & B [facility] & B Member Subscriber Plan / Payer ( fective 2000-Present) Name:Liana Krishnamurthy Member ID:[id number] Relation to Subscriber:Self Name:Liana Krishnamurthy Subscriber ID:[id number] Payer ID:[id number] Group ID:Not on file Type:Medicare Address: [employer] [address] [place] [id number] [employer] [place] [address] MEDICARE PART A & B [place] Advance Directives For more information, please contact: [phone] (9AM - 5PM [facility], Tuesday-Tuesday) Documents on File Type Date Recorded Patient Poultry Boner Expl anation Healthcare Proxy 06/02/2022 12:43 PM * Full Code (Latest Code Status on File) Date Activated Date Inactivated Comments 11/21/2024 6:32 PM Question Answer Comments Code Status Confirmed With: Other (specify below ) * Full Code Date Activated Date Inactivated Comments 06/06/2024 6:45 PM 11/21/2024 6:32 PM Question Answer Comments Code Status Confirmed With: Other (specify below ) Code Discussion Comments: prior admission * Full Code Date Activated Date Inactivated Comments 10/19/2023 10:52 PM 06/06/2024 6:45 PM Question Answer Comments Code Status Confirmed With: Patient Code Status Communicated To: Inpatient Attending * Full Code Date Activated Date Inactivated Comments 05/13/2023 7:22 PM 10/19/2023 10:52 PM Question Answer Comments Code Status Confirmed With: Other (specify below ) Code Discussion Comments: Pt unable to answer. * Full Code Date Activated Date Inactivated Comments 02/14/2023 12:15 PM 05/13/2023 7:22 PM Question Answer Comments Code Status Confirmed With: Other (specify below )Patient Healthcare Agents on File Name Relationship Healthcare Agent Relationship Communication Jeronimo Raghu Son Alternate Healthcare Agent (Proxy form on file) Yael Raghu Other .Primary Heal th Care Agent (Proxy form on file) Care Teams Dialysis Patient Care Technician Relationship Specialty Start Date End Date Ailin Araujo MD [address] [place] [id number] PCP - General Family Medicine 05/13/17 Additional Source Comments The information contained in this document represents components of the legal health record. It is not the complete legal health record.[facility]
--- OUTSIDE RECORDS SUMMARY | 2025-04-26 14:29 | XMS_ITS | Encounter Summary ---
Author Organization [facility] Address [address] [facility] [address] [place] [address] Phone Care Team Providers Care Ventilation Equipment Tender Name Role Phone Ailin Araujo MD Primary Care Provider Encounter Details Date Type Department Care Team (Late st Contact Info) Description 05/13/2023 Procedure Pass [facility], Ct Scan - [address] [address] Social History Tobacco Use Types Packs/Day Years [...] Description 06/03/2025 11:00 AM EST Office Visit [facility] Neurology [address] [place] [address] Natalie Syed FNP [address] [facility], 2nd [place] [address] 12/18/2025 11:30 AM EDT Office Visit [facility] [address]rd Floor, [address] [place] [address] Angelic Cesar DNP [address] [facility], [address] [place] [address] [email or web address] documented as of this encounter Visit Diagnoses Not on filedocumented in this encounter Additional Health Concerns Infection Onset Date Last Indicated Resolved Time CoV-Risk 07/20/2023 07/20/2023 07/31/2023 1:22 AM EST CoV-Risk Comment:Per note documentation 06/06/2024 06/06/2024 10:40 AM EST CoV-Risk 08/31/2024 08/31/2024 09/11/2024 1:23 AM EST documented as of this encounter Care Teams Ventilation Equipment Tender Relationship Specialty Start Date End Date Ailin Araujo MD [address] [place] [id number] PCP - General Family Medicine 05/13/17 documented as of this encounter Additional Source Comments The information contained in this document represents components of the legal health record. It is not the complete legal health record.[facility]
--- OUTSIDE RECORDS SUMMARY | 2025-04-26 14:29 | XMS_ITS | Encounter Summary ---
Author Organization [facility] Address [address] [place] [address] Phone Care Team Providers Care Resin Filterer Name Role Phone Ailin Araujo MD Primary Care Provider [phone] Encounter Details Date Type Department Care Team (Late st Contact Info) Description 04/15/2022 Telephone [facility] [address] [place] [address] Marbin Dowd MD Social History [...] in March due to being Hospitalized in [place]. A follow up is already scheduled for her. documented in this encounter Plan of Treatment Not on file documented as of this encounter Visit Diagnoses Not on filedocumented in this encounter Care Teams Resin Filterer Relationship Specialty Start Date End Date Ailin Araujo MD [address] [place] [address] PCP - General 07/21/20 documented as of this encounter
--- OUTSIDE RECORDS SUMMARY | 2025-04-26 14:29 | XMS_ITS | Encounter Summary ---
Author Organization [facility] Address [address] [place] [address] Phone Care Team Providers Care Helpdesk Administrator Name Role Phone Ailin Araujo MD Primary Care Provider Encounter Details Date Type Department Care Team (Late st Contact Info) Description 08/31/2024 Procedure Pass [facility], Ct Scan - [address] [address] Social History Tobacco Use Types Packs/Day Years [...] as food, clothing, or medical care? No 08/31/2024 In the past 12 months have y ou been in a relationship with a person who hurts, threatens, or tries to control you? No 08/31/2024 Are you denied basic needs s uch as food, clothing, or medical care? No 08/31/2024 In the past 12 months have y ou been in a relationship with a person who hurts, threatens, or tries to control you? No 08/31/2024 Comments Unknown Sex and Gender Information Value Date Recorded Sex Assigned at Female 12/22/2020 4:54 PM EDT Legal Sex Female 9:49 AM EDT Gender Identity Female 03/04/2021 1:51 PM EDT Sexual Orientation Straight 10/05/2021 6: 22 PM EDT documented as of this encounter Functional Status * Calculated C-SSRS Risk Score (Lifetime/Recent) Answer Date of Assessment Author No Risk Indicated 08/31/2024 2:59 PM Orville Longo RN * Perry Suicide Severity Rating Scale (Screener/Recent Self-Report) Question Answer Date of Assessment Author 1. Wish to be (Past 1 Month) No 08/31/2024 2:59 PM EST Orville Tobias, RN 2. Non-Specific Active Suici luis Thoughts (Past 1 Month) No 08/31/2024 2:59 PM EST Jonel Tobias, RN 6. Suicidal Behavior (Lifetime) No 2:59 PM EST Orville Tobias RN documented as of this encounter Plan of Treatment Upcoming Encounters Date Type Department Care Team (Late st Contact Info) Description 06/03/2025 11:00 AM EST Office Visit [facility] Neurology [address] [place] [address] Natalie Syed FNP 15 [facility], 2nd [place] [address] 12/18/2025 11:30 AM EDT Office Visit [facility] [address] [facility] 3rd Floor, [address] [place] [address] Angelic Cesar DNP 22 [facility], [address] [address] documented as of this encounter Visit Diagnoses Not on filedocumented in this encounter Additional Health Concerns Infection Onset Date Last Indicated Resolved Time CoV-Risk 08/31/2024 08/31/2024 09/11/2024 1:23 AM EST documented as of this encounter Care Teams Helpdesk Administrator Relationship Specialty Start Date End Date Ailin Araujo MD [address] [place] [id number] PCP - General Family Medicine 05/13/17 documented as of this encounter Additional Source Comments The information contained in this document represents components of the legal health record. It is not the complete legal health record.[facility]
--- OUTSIDE RECORDS SUMMARY | 2025-04-26 14:29 | XMS_ITS | Encounter Summary ---
Author Organization [facility] Address [address] [place] [address] Phone Care Team Providers Care Hoop Maker Helper Machine Name Role Phone Ailin Araujo MD Primary Care Provider Encounter Details Date Type Department Care Team (Late st Contact Info) Description 08/31/2024 Procedure Pass [facility], Ct Scan - [address] [address] Social History Tobacco Use Types Packs/Day Years [...] 08/31/2024 2:59 PM Orville Longo RN * [place] Suicide Severity Rating Scale (Screener/Recent Self-Report) Question [...] 06/03/2025 11:00 AM EST Office Visit [facility] Neurology [address] [place] [address] Natalie Syed FNP 15 [facility], 2nd [place] [address] 12/18/2025 11:30 AM EDT Office Visit [facility] [address] [facility] 3rd Floor, [address] [place] [address] Angelic Cesar DNP 22 [facility], [address] [address] documented as of this encounter Visit Diagnoses Not on filedocumented in this encounter Additional Health Concerns Infection Onset Date Last Indicated Resolved Time CoV-Risk 08/31/2024 08/31/2024 09/11/2024 1:23 AM EST documented as of this encounter Care Teams Hoop Maker Helper Machine Relationship Specialty Start Date End Date Ailin Araujo MD [address] [place] [address] PCP - General Family Medicine 05/13/17 documented as of this encounter Additional Source Comments The information contained in this document represents components of the legal health record. It is not the complete legal health record.[facility]
--- OUTSIDE RECORDS SUMMARY | 2025-04-26 14:29 | XMS_ITS | Encounter Summary ---
Author Organization [facility] Address [address] [place] [address] Phone Care Team Providers Care Scrip Clerk Name Role Phone Ailin Araujo MD Primary Care Provider Encounter Details Date Type Department Care Team (Late st Contact Info) Description 08/31/2024 Procedure Pass [facility], Ct Scan - [address] [address] Social History Tobacco Use Types Packs/Day Years [...] 08/31/2024 2:59 PM Orville Longo RN * [place] Suicide Severity Rating Scale (Screener/Recent Self-Report) Question [...] Description 06/03/2025 11:00 AM EST Office Visit [facility] Neurology [address] [place] [address] Natalie Syed FNP 15 [facility], 2nd [place] [address] 12/18/2025 11:30 AM EDT Office Visit [facility] 22 [facility] 3rd Floor, [address] [place] [address] Angelic Cesar DNP 22 [facility], [address] [address] documented as of this encounter Visit Diagnoses Not on filedocumented in this encounter Additional Health Concerns Infection Onset Date Last Indicated Resolved Time CoV-Risk 08/31/2024 08/31/2024 09/11/2024 1:23 AM EST documented as of this encounter Care Teams Scrip Clerk Relationship Specialty Start Date End Date Ailin Araujo MD [address] [place] [address] PCP - General Family Medicine 05/13/17 documented as of this encounter Additional Source Comments The information contained in this document represents components of the legal health record. It is not the complete legal health record.[facility]
--- OUTSIDE RECORDS SUMMARY | 2025-04-26 14:29 | XMS_ITS | Encounter Summary ---
Author Organization [facility] Address [address] [facility] [address] [place] [address] Phone Care Team Providers Care Regulatory Compliance Director Name Role Phone Ailin Araujo MD Primary Care Provider Encounter Details Date Type Department Care Team (Late st Contact Info) Description 08/11/2022 Procedure Pass [facility], Ct Scan - [address] [address] Social History Tobacco Use Types Packs/Day Years [...] 08/11/2022 9:11 PM Candace Harris RN * [place] Suicide Severity Rating Scale (Screener/Recent Self-Report) Question [...] Description 06/03/2025 11:00 AM EST Office Visit [facility] Neu[facility] [address] [place] [address] Natalie Syed FNP 15 [facility], 2nd [place] [address] [email or web address] 12/18/2025 11:30 AM EDT Office Visit [facility] [address] [place] [address] 3rd [facility], [address] [place] [address] Angelic Cesar DNP 22 [facility], [address] [address] [email or web address] documented as of this encounter Visit Diagnoses Not on filedocumented in this encounter Additional Health Concerns Infection Onset Date Last Indicated Resolved Time CoV-Risk 07/20/2023 07/20/2023 07/31/2023 1:22 AM EST CoV-Risk Comment:Per note documentation 06/06/2024 06/06/2024 10:40 AM EST CoV-Risk 08/31/2024 08/31/2024 09/11/2024 1:23 AM EST documented as of this encounter Care Teams Regulatory Compliance Director Relationship Specialty Start Date End Date Ailin Araujo MD [address] [place] [address] PCP - General Family Medicine 05/13/17 documented as of this encounter Additional Source Comments The information contained in this document represents components of the legal health record. It is not the complete legal health record.[facility]
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
--- OUTSIDE RECORDS SUMMARY | 2025-04-26 14:29 | XMS_ITS | Encounter Summary ---
Author Organization [facility] Address [address] [place] [address] Phone Care Team Providers Care Machinist 2Nd Shift Name Role Phone Ailin Araujo MD Primary Care Provider Encounter Details Date Type Department Care Team (Late st Contact Info) Description 07/29/2022 Ancillary Orders [facility], X-Ray - [facility] [address] [place] [address] Nicolas Arechiga MD [address] [place] [phone] [email or web address] Pain in thoracic spine; Low back pain, unspecified back pain laterality, unspecified chronicity, unspecified whether sciatica present; Repeated falls Social History Tobacco Use Types Packs/Day Years [...] Description 06/03/2025 11:00 AM EST Office Visit [facility] Neurology [address] [place] [address] Natalie Syed FNP [address] [facility], 2nd [place] [address] 12/18/2025 11:30 AM EDT Office Visit [facility] 22 [facility] 3rd Floor, [address] [place] [address] Angelic Cesar DNP [address] [facility], [address] [place] [address] documented as of this encounter Results * XR LUMBOSACRAL SPINE 2-3 VIEWS (07/29/2022 9:12 AM EST) Anatomical Region Laterality Modality L-spine Computed Radiogr aphy 07/29/2022 5:25 PM EST Impressions 07/29/2022 5:28 PM EST 11 mm anterolisthesis at L4-5 which on prior supine crosstable radiograph reduces to neutral. This suggest dynamic instability at this level. Similar moderate lumbar spine degenerative changes most pronounced L3-S1. Narrative 07/29/2022 5:28 PM EST XR LUMBOSACRAL SPINE 2-3 VIEWS COMPARISON: XR LUMBOSACRAL SPINE 2-3 VIEWS ; XR LUMBOSACRAL SPINE 2-3 VIEWS FINDINGS: ALIGNMENT: 11 mm anterolisthesis at L4-5. VERTEBRAE: Vertebral body heights preserved. DISCS: Disc height loss with endplate sclerosis and marginal osteophytes L3-S1. FACETS: Facet arthropathy L2-S1. PARASPINAL SOFT TISSUES: Cholecystectomy clips in the right upper quadrant. Constipation. Procedure Note Ar Schmidt MD - 07/29/2022 XR LUMBOSACRAL SPINE 2-3 VIEWS COMPARISON: XR LUMBOSACRAL SPINE 2-3 VIEWS ; XR LUMBOSACRALSPINE 2-3 VIEWS FINDINGS: ALIGNMENT: 11 mm anterolisthesis at L4-5. VERTEBRAE: Vertebral body heights preserved. DISCS: Disc height loss with endplate sclerosis and marginal osteophytesL3-S1. FACETS: Facet arthropathy L2-S1. PARASPINAL SOFT TISSUES: Cholecystectomy clips in the right upperquadrant. Constipation. IMPRESSION: 11 mm anterolisthesis at L4-5 which on prior supine crosstable radiographreduces to neutral. This suggest dynamic instability at this level. Similar moderate lumbar spine degenerative changes most pronouncedL3-S1. us Nicolas Arechiga MD IMG XR SPINE Final R esult * XR THORACIC SPINE 3 VIEW (07/29/2022 9:11 AM EST) Anatomical Region Laterality Modality T-spine Computed Radiogr aphy 07/29/2022 5:24 PM EST Impressions 07/29/2022 5:25 PM EST No acute osseous abnormality. Upper thoracic discogenic degenerative changes. Narrative 07/29/2022 5:25 PM EST XR THORACIC SPINE 3 VIEW COMPARISON: None FINDINGS: ALIGNMENT: Thoracic kyphosis within normal limits. VERTEBRAE: Vertebral body heights preserved. DISCS: Disc height loss and this causes marginal osteophytes in the upper thoracic spine. FACETS: Facets normally aligned. PARASPINAL SOFT TISSUES: Left chest wall Port-A-Cath tip in the cavoatrial junction. Procedure Note Ar Schmidt MD - 07/29/2022 XR THORACIC SPINE 3 VIEW COMPARISON: None FINDINGS: ALIGNMENT: Thoracic kyphosis within normal limits. VERTEBRAE: Vertebral body heights preserved. DISCS: Disc height loss and this causes marginal osteophytes in the upperthoracic spine. FACETS: Facets normally aligned. PARASPINAL SOFT TISSUES: Left chest wall Port-A-Cath tip in the cavoatrialjunction. IMPRESSION: No acute osseous abnormality. Upper thoracic discogenic degenerative changes. us Nicloas Arechiga MD IMG XR SPINE Final R esult documented in this encounter Visit Diagnoses Diagnosis Pain in thoracic spine Low back pain, unspecified back pain laterality, unspecified chronicity, unspecified whether sciatica present Repeated falls Pain in thoracic spine Low back pain, unspecified back pain laterality, unspecified chronicity, unspecified whether sciatica present Repeated falls Pain in thoracic spine documented in this encounter Additional Health Concerns Infection Onset Date Last Indicated Resolved Time CoV-Risk 07/20/2023 07/20/2023 07/31/2023 1:22 AM EST CoV-Risk Comment:Per note documentation 06/06/2024 06/06/2024 10:40 AM EST CoV-Risk 08/31/2024 08/31/2024 09/11/2024 1:23 AM EST documented as of this encounter Care Teams Machinist 2Nd Shift Relationship Specialty Start Date End Date Ailin Araujo MD [address] [place] [address] PCP - General Family Medicine 05/13/17 documented as of this encounter Additional Source Comments The information contained in this document represents components of the legal health record. It is not the complete legal health record.[facility]
--- OUTSIDE RECORDS SUMMARY | 2025-04-26 14:29 | XMS_ITS | Encounter Summary ---
Author Organization [facility] Address [address] [place] [address] Phone Care Team Providers Care It Program Engagement Director Name Role Phone Ailin Araujo MD Primary Care Provider Encounter Details Date Type Department Care Team (Late st Contact Info) Description 06/18/2024 Telephone [facility] Department of Neurology [address] [place] [address], 8th Floor, [address] [place] [address] Yadi Larry MD [address] [place] [address] [place] [phone] [email or web address] Social History Tobacco Use Types Packs/Day Years [...] your housing situation today? I have justyna sing 06/08/2024 How many times have you move [...] 06/03/2025 11:00 AM EST Office Visit [facility] [address] [place] [address] Natalie Syed FNP 15 [facility], 2nd [place] [address] 12/18/2025 11:30 AM EDT Office Visit [facility] [address] 3rd Floor, [address] [place] [address] Angelic Cesar DNP 22 [facility], [address] [place] [address] [email or web address] documented as of this encounter Visit Diagnoses Not on filedocumented in this encounter Additional Health Concerns Infection Onset Date Last Indicated Resolved Time CoV-Risk 08/31/2024 08/31/2024 09/11/2024 1:23 AM EST documented as of this encounter Care Teams It Program Engagement Director Relationship Specialty Start Date End Date Ailin Araujo MD [address] [place] [address] PCP - General Family Medicine 05/13/17 documented as of this encounter Additional Source Comments The information contained in this document represents components of the legal health record. It is not the complete legal health record.[facility]
--- OUTSIDE RECORDS SUMMARY | 2025-04-26 14:29 | XMS_ITS | Encounter Summary ---
Author Organization [facility] Address [address] [facility] [address] [place] [address] Phone Care Team Providers Care Veterinary Microbiologist Name Role Phone Ailin Araujo MD Primary Care Provider Encounter Details Date Type Department Care Team (Late st Contact Info) Description 08/02/2022 Procedure Pass [facility], Ct Scan - [address] [address] Social History Tobacco Use Types Packs/Day Years [...] 08/02/2022 5:32 AM Darryl Henriquez RN * [place] Suicide Severity Rating Scale (Screener/Recent Self-Report) Question [...] Description 06/03/2025 11:00 AM EST Office Visit [facility] [address] [place] [address] Natalie Syed, NATA 15 [facility], 2nd [place] [address] 12/18/2025 11:30 AM EDT Office Visit [facility] [address] [place] [address] 3rd [facility], [address] [place] [address] Angelic Cesar DNP 22 [facility], [address] [address] documented as of this encounter Visit Diagnoses Not on filedocumented in this encounter Additional Health Concerns Infection Onset Date Last Indicated Resolved Time CoV-Risk 07/20/2023 07/20/2023 07/31/2023 1:22 AM EST CoV-Risk Comment:Per note documentation 06/06/2024 06/06/2024 10:40 AM EST CoV-Risk 08/31/2024 08/31/2024 09/11/2024 1:23 AM EST documented as of this encounter Care Teams Veterinary Microbiologist Relationship Specialty Start Date End Date Ailin Araujo MD [address] [place] [address] PCP - General Family Medicine 05/13/17 documented as of this encounter Additional Source Comments The information contained in this document represents components of the legal health record. It is not the complete legal health record.[facility]
--- OUTSIDE RECORDS SUMMARY | 2025-04-26 14:30 | XMS_ITS | Encounter Summary ---
Author Organization [facility] Address [address] [facility] [address] [place] [address] Phone Care Team Providers Care Combination Machine Tool Setter Name Role Phone Ailin Araujo MD Primary Care Provider Encounter Details Date Type Department Care Team (Late st Contact Info) Description 05/29/2022 Procedure Pass [facility], Ct Scan - [address] [address] Social History Tobacco Use Types Packs/Day Years [...] Date of Assessment Author No Risk Indicated 05/29/2022 12:04 PM Luis Rg RN * [place] Suicide Severity Rating Scale (Screener/Recent Self-Report) Question Answer Date of Assessment Author 1. Wish to be (Past 1 Month) No 022 12:04 PM Luis Rg, [place] 2. Non-Specific Active Suici luis Thoughts (Past 1 Month) No 05/29/2022 12:04 PM Dami Rg RN 6. Suicidal Behavior (Lifetime) No 12:04 PM Luis Rg, [place] documented as of this encounter Plan of Treatment Upcoming Encounters Date Type Department Care Team (Late st Contact Info) Description 06/03/2025 11:00 AM EST Office Visit [facility] Neu[facility] [address] [place] [address] Natalie Syed FNP 15 [facility], 2nd [place] [address] [email or web address] 12/18/2025 11:30 AM EDT Office Visit [facility] 22 [facility] 3rd Floor, [address] [place] [address] Angelic Cesar DNP 22 [facility], [address] [address] [email or web address] documented as of this encounter Visit Diagnoses Not on filedocumented in this encounter Additional Health Concerns Infection Onset Date Last Indicated Resolved Time CoV-Risk 07/20/2023 07/20/2023 07/31/2023 1:22 AM EST CoV-Risk Comment:Per note documentation 06/06/2024 06/06/2024 10:40 AM EST CoV-Risk 08/31/2024 08/31/2024 09/11/2024 1:23 AM EST documented as of this encounter Care Teams Combination Machine Tool Setter Relationship Specialty Start Date End Date Ailin Araujo MD [address] [place] [address] PCP - General Family Medicine 05/13/17 documented as of this encounter Additional Source Comments The information contained in this document represents components of the legal health record. It is not the complete legal health record.[facility]
--- OUTSIDE RECORDS SUMMARY | 2025-04-26 14:30 | XMS_ITS | Encounter Summary ---
Author Organization [facility] Address [address] [facility] [place] [facility] [address] [place] [address] Phone Care Team Providers Care Fabricator Artificial Breast Name Role Phone Ailin Araujo MD Primary Care Provider Encounter Details Date Type Department Care Team (Late st Contact Info) Description 06/11/2022 Procedure Pass [facility], Ct Scan - [address] [address] Social History Tobacco Use Types Packs/Day Years [...] Date of Assessment Author No Risk Indicated 06/11/2022 10:18 AM EST Onel t, Deborah L, RN * [place] Suicide Severity Rating Scale (Screener/Recent Self-Report) Question Answer Date of Assessment Author 1. Wish to be (Past 1 Month) No 022 10:18 AM Deborah Tavera RN 6. Suicidal Behavior (Lifetime) No 2 10:18 AM Deborah Tavera RN documented as of this encounter Plan of Treatment Upcoming Encounters Date Type Department Care Team (Late st Contact Info) Description 06/03/2025 11:00 AM EST Office Visit [facility] Neurology [address] [place] [address] Natalie Syed, DIRECTOR RECORDS MANAGEMENT 15 [facility], 2nd [place] [address] 12/18/2025 11:30 AM EDT Office Visit [facility] 22 [facility] 3rd Floor, [address] [place] [address] Angelic Cesar DNP 22 [facility], [address] [place] [address] documented as of this encounter Visit Diagnoses Not on filedocumented in this encounter Additional Health Concerns Infection Onset Date Last Indicated Resolved Time CoV-Risk 07/20/2023 07/20/2023 07/31/2023 1:22 AM EST CoV-Risk Comment:Per note documentation 06/06/2024 06/06/2024 10:40 AM EST CoV-Risk 08/31/2024 08/31/2024 09/11/2024 1:23 AM EST documented as of this encounter Care Teams Fabricator Artificial Breast Relationship Specialty Start Date End Date Ailin Araujo MD [address] [place] [address] PCP - General Family Medicine 05/13/17 documented as of this encounter Additional Source Comments The information contained in this document represents components of the legal health record. It is not the complete legal health record.[facility]
--- OUTSIDE RECORDS SUMMARY | 2025-04-26 14:30 | XMS_ITS | Encounter Summary ---
Author Organization [facility] Address [address] [facility] [address] [place] [address] Phone Care Team Providers Care Regional Director Of Admissions Name Role Phone Ailin Araujo MD Primary Care Provider Reason for Referral * MRI/CAT Scan - Closed Specialty Diagnoses / Procedures Referred By Ambar t Referred To Contact Radiology Diagnoses Shortness of breath Procedures NC Stress Result for Nuclear Stress Test Grover Collins MD Phone: tel: fax: [email or web address] Referral ID Status Reason Start Date Expiration Date Visits Re quested Visits Authorized [id number] Closed 05/27/2023 11/01/2023 1 1 Encounter Details Date Type Department Care Team (Late st Contact Info) Description 05/27/2023 Ancillary Orders Non-Invasive Cardiology [address] [place] [address] Grover Collins MD [address] [facility], [address] [place] [address] [email or web address] Shortness of breath Social History Tobacco Use Types Packs/Day Years [...] EST Office Visit [facility] Neurology [address] [place] [address] Natalie Syed, NATA [address] [facility], 2nd [place] [address] 12/18/2025 11:30 AM EDT Office Visit [facility] [address] 3rd Floor, [address] [place] [address] Angelic Cesar DNP [address] [facility], [address] [place] [address] documented as of this encounter Results * NC Stress Result for Nuclear Stress Test (05/27/2023 11:35 AM EST) Max BP Systolic 98 mmHg [facility] Max BP Diastolic 66 mmHg [facility] Max HR 64 BPM [facility] Resting HR 60 BPM [facility] Resting BP Systolic 98 mmHg [facility] Resting BP Diastolic 66 mmHg [facility] Peak METS 1.0 METS [facility] Peak HR 62 BPM [facility] Peak BP Systolic 90 mmHg [facility] Peak BP Diastolic 64 mmHg [facility] Anatomical Region Laterality Modality Heart Other 05/27/2023 10:0 4 AM EST 05/27/2023 11:34 AM EST Narrative 05/28/2023 8:04 AM EST Response to Stress The patient exercised for minutes and seconds, achieving 1.0 METS at peak exercise. Baseline blood pressure was 98/66 mmHg, and baseline heart rate was 60 bpm. Peak blood pressure was 90/64 mmHg. The patient achieved a peak heart rate of 62 bpm, which is% of their maximum predicted heart rate. Rate pressure product was 5580. REPORT - Dobutamine infusion started at 5 mcg/kg/min. Infusion stopped due to hypotensive response to medication. Maximum heart rate achieved only 64 bpm (39% MPHR). 1. EKG - Baseline EKG showed sinus rhythm. Further EKGs were non-diagnostic for ischemia due to inadequate heart rate achievement. 2. SYMPTOMS - No chest pain reported. Patient reported a headache after initiation of dobutamine infusion. 3. PHYSIOLOGY - Baseline blood pressure of 96/60 dropped to 80/60 after about 4 minutes of dobutamine infusion. Infusion was discontinued. Blood pressure normalized approximately 10 minutes after infusion was discontinued. 4. ARRHYTHMIAS - Rare PAC and PVC. Conclusion - Dobutamine infusion terminated early in protocol due to hypotension. Heart rate did not rise significantly from baseline, so post-stress nuclear images were deferred. Nuclear images (rest only) will be reported separately. She reports inability to walk on a treadmill (due to knee issues) and has a significant seizure history (contraindication to Lexiscan). Adelina Gray NP with Dr Osborn. us Grover Collins MD CV NM CARDIAC Final Re sult documented in this encounter Visit Diagnoses Diagnosis Shortness of breath Shortness of breath documented in this encounter Additional Health Concerns Infection Onset Date Last Indicated Resolved Time CoV-Risk 07/20/2023 07/20/2023 07/31/2023 1:22 AM EST CoV-Risk Comment:Per note documentation 06/06/2024 06/06/2024 10:40 AM EST CoV-Risk 08/31/2024 08/31/2024 09/11/2024 1:23 AM EST documented as of this encounter Care Teams Regional Director Of Admissions Relationship Specialty Start Date End Date Ailin Araujo MD [address] [place] [phone] PCP - General Family Medicine 05/13/17 documented as of this encounter Additional Source Comments The information contained in this document represents components of the legal health record. It is not the complete legal health record.[facility]
--- OUTSIDE RECORDS SUMMARY | 2025-04-26 14:30 | XMS_ITS | Encounter Summary ---
Author Organization [facility] Address [address] [facility] [address] [place] [address] Phone Care Team Providers Care Sales Assistant Institutional Sales Name Role Phone Ailin Araujo MD Primary Care Provider Encounter Details Date Type Department Care Team (Late st Contact Info) Description 05/08/2022 Procedure Pass [facility], [address] [address] Social History Tobacco Use Types Packs/Day Years [...] 06/03/2025 11:00 AM EST Office Visit [facility] Neurology [address] [place] [address] Yamilet Syedh Meliza, INSULATION WORKER [address] [facility], 2nd [place] [address] 12/18/2025 11:30 AM EDT Office Visit [facility] [address] [facility] 3rd Floor, [address] [place] [address] Angelic Cesar DNP 22 [facility], [address] [place] [address] [email or web address] documented as of this encounter Visit Diagnoses Not on filedocumented in this encounter Additional Health Concerns Infection Onset Date Last Indicated Resolved Time CoV-Risk 07/20/2023 07/20/2023 07/31/2023 1:22 AM EST CoV-Risk Comment:Per note documentation 06/06/2024 06/06/2024 10:40 AM EST CoV-Risk 08/31/2024 08/31/2024 09/11/2024 1:23 AM EST documented as of this encounter Care Teams Sales Assistant Institutional Sales Relationship Specialty Start Date End Date Ailin Araujo MD [address] [place] [phone] PCP - General Family Medicine 05/13/17 documented as of this encounter Additional Source Comments The information contained in this document represents components of the legal health record. It is not the complete legal health record.[facility]
--- OUTSIDE RECORDS SUMMARY | 2025-04-26 14:30 | XMS_ITS | Encounter Summary ---
Author Organization [facility] Address [address] [facility] [address] [place] [address] Phone Care Team Providers Care Restaurant Mgr Name Role Phone Ailin Araujo MD Primary Care Provider Encounter Details Date Type Department Care Team (Late st Contact Info) Description 05/07/2022 Procedure Pass [facility], Ct Scan - [address] [address] Social History Tobacco Use Types Packs/Day Years [...] Date of Assessment Author No Risk Indicated 05/07/2022 9:06 AM EDT Ariadna Kimball, RN * [place] Suicide Severity Rating Scale (Screener/Recent Self-Report) Question Answer Date of Assessment Author 1. Wish to be (Past 1 Month) No 022 9:06 AM EDT Ariadna Lindsay, MERLIN 2. Non-Specific Active Suici luis Thoughts (Past 1 Month) No 05/07/2022 9:06 AM EDT Ariadna Lindsay, RN 6. Suicidal Behavior (Lifetime) No 9:06 AM EDT Ariadna Lindsay, RN documented as of this encounter Plan of Treatment Upcoming Encounters Date Type Department Care Team (Late st Contact Info) Description 06/03/2025 11:00 AM EST Office Visit [facility] Neurology [address] [place] [address] Natalie Syed, NATA [address] [facility], 2nd [place] [address] [email or web address] 12/18/2025 11:30 AM EDT Office Visit [facility] [address] [facility] 3rd Floor, [address] [place] [address] Angelic Cesar DNP [address] [facility], [facility] [address] [place] [address] [email or web address] documented as of this encounter Visit Diagnoses Not on filedocumented in this encounter Additional Health Concerns Infection Onset Date Last Indicated Resolved Time CoV-Risk 07/20/2023 07/20/2023 07/31/2023 1:22 AM EST CoV-Risk Comment:Per note documentation 06/06/2024 06/06/2024 10:40 AM EST CoV-Risk 08/31/2024 08/31/2024 09/11/2024 1:23 AM EST documented as of this encounter Care Teams Restaurant Mgr Relationship Specialty Start Date End Date Ailin Araujo MD [address] [place] [phone] PCP - General Family Medicine 05/13/17 documented as of this encounter Additional Source Comments The information contained in this document represents components of the legal health record. It is not the complete legal health record.[facility]
--- OUTSIDE RECORDS SUMMARY | 2025-04-26 14:30 | XMS_ITS | Encounter Summary ---
Author Organization [facility] Address [address] [facility] [address] [place] [address] Phone Care Team Providers Care Cnc Machinist 2Nd Shift Name Role Phone Ailin Araujo MD Primary Care Provider Encounter Details Date Type Department Care Team (Late st Contact Info) Description 05/14/2022 Procedure Pass [facility], [address], [address] 1 [place] [address] Social History Tobacco Use Types Packs/Day Years [...] Description 06/03/2025 11:00 AM EST Office Visit [facility] Neurology [address] [place] [address] Yamilet Syedh Meliza, UTILITY BILL COMPLAINTS INVESTIGATOR [address] [facility], 2nd [place] [address] 12/18/2025 11:30 AM EDT Office Visit [facility] 22 [facility] 3rd Floor, [address] [place] [address] Angelic Cesar DNP [address] [facility], [address] [place] [address] [email or web address] documented as of this encounter Visit Diagnoses Not on filedocumented in this encounter Additional Health Concerns Infection Onset Date Last Indicated Resolved Time CoV-Risk 07/20/2023 07/20/2023 07/31/2023 1:22 AM EST CoV-Risk Comment:Per note documentation 06/06/2024 06/06/2024 10:40 AM EST CoV-Risk 08/31/2024 08/31/2024 09/11/2024 1:23 AM EST documented as of this encounter Care Teams Cnc Machinist 2Nd Shift Relationship Specialty Start Date End Date Ailin Araujo MD [address] [place] [id number] PCP - General Family Medicine 05/13/17 documented as of this encounter Additional Source Comments The information contained in this document represents components of the legal health record. It is not the complete legal health record.[facility]
--- OUTSIDE RECORDS SUMMARY | 2025-04-26 14:30 | XMS_ITS | Encounter Summary ---
Author Organization [facility] Address [address] [facility] [address] [place] [address] Phone Care Team Providers Care Rod Mill Operator Name Role Phone Ailin Araujo MD Primary Care Provider Reason for Referral * MRI/CAT Scan - Closed Specialty Diagnoses / Procedures Referred By Ambar t Referred To Contact Radiology Diagnoses Shortness of breath Procedures NC Myocardial Perfusion Rest Single NC Myocardial Perfusion Pharmacologic Stress Multiple CHG MYOCARDIAL SPECT MULTIPLE STUDIES Grover Collins MD Phone: tel: fax: mailto:[email or web address] Referral ID Status Reason Start Date Expiration Date Visits Re quested Visits Authorized [id number] Closed 05/12/2023 11/01/2023 4 4 Encounter Details Date Type Department Care Team (Latest Contact Info) Description 05/27/2023 Ancillary Orders [facility] [address] [place] [address] 3rd Floor, [address] [place] [address] Grover Collins MD [address] [facility], [address] [place], [place] [id number] [email or web address] Shortness of breath Social History Tobacco Use [...] 06/03/2025 11:00 AM EST Office Visit [facility] Neurology [address] [place] [address] Natalie Syed FNP [address] [facility], 2nd [place] [address] 12/18/2025 11:30 AM EDT Office Visit [facility] [address] Floor, [address] [place] [address] Angelic Cesar DNP [address] [facility], [address] [place] [address] .[employer] documented as of this encounter Results * NC Myocardial Perfusion Rest Single (05/27/2023 11:16 AM EST) Anatomical Region Laterality Modality Heart, Vascular Nuclear Medicine 05/27/2023 1:57 PM EST Impressions 05/27/2023 2:09 PM EST Normal distribution of tracer throughout the left ventricular myocardium. POS [id number] Narrative 05/27/2023 2:09 PM EST HISTORY: Atypical chest pain. Patient unable to undergo treadmill stress study due to knee pain and seizure disorder. COMPARISON: None. DOSE: 10.5 mCi technetium 99m sestamibi EXAM: Dobutamine infusion started at 5 mcg/kg/m but stopped shortly into initiation of infusion due to development of hypotension. No significant heart rate elevation. Given this, rest images only obtained. No dynamic imaging. FINDINGS: Short, long and transverse images through the left ventricular myocardium show uniform distribution of radiotracer. No ventricular defect. Procedure Note Nicolas Doran MD - 05/27/2023 HISTORY: Atypical chest pain. Patient unable to undergo treadmill stressstudy due to knee pain and seizure disorder. COMPARISON: None. DOSE: 10.5 mCi technetium 99m sestamibi EXAM: Dobutamine infusion started at 5 mcg/kg/m but stopped shortly intoinitiation of infusion due to development of hypotension. No significantheart rate elevation. Given this, rest images only obtained. No dynamicimaging. FINDINGS: Short, long and transverse images through the left ventricular myocardiumshow uniform distribution of radiotracer. No ventricular defect. IMPRESSION: Normal distribution of tracer throughout the left ventricularmyocardium. POS [id number] Grover Collins MD CV NM CARDIAC Final [...] documented as of this encounter Care Teams Rod Mill Operator Relationship Specialty Start Date End Date Ailin Araujo MD [address] [place] [address] PCP - General Family Medicine 05/13/17 documented as of this encounter Additional Source Comments The information contained in this document represents components of the legal health record. It is not the complete legal health record.[facility]
--- OUTSIDE RECORDS SUMMARY | 2025-04-26 14:30 | XMS_ITS | Encounter Summary ---
Author Organization [facility] Address [address] [facility] [address] [place] [address] Phone Care Team Providers Care Livestock Farmers Name Role Phone Ailin Araujo MD Primary Care Provider Encounter Details Date Type Department Care Team (Late st Contact Info) Description 06/11/2022 Procedure Pass [facility], Ct Scan - [address] [address] Social History Tobacco Use Types Packs/Day Years [...] EST Onel t, Deborah L, RN * [place] Suicide Severity Rating Scale (Screener/Recent Self-Report) Question [...] Visit [facility] Neurology [address] [place] [address] Natalie Syed, GUIDANCE CONSULTANT [address] [facility], 2nd [place] [address] 12/18/2025 11:30 AM EDT Office Visit [facility] 22 [facility] 3rd Floor, [address] [place] [address] Angelic Cesar DNP [address] [facility], [address] [place] [address] documented as of this encounter Visit Diagnoses Not on filedocumented in this encounter Additional Health Concerns Infection Onset Date Last Indicated Resolved Time CoV-Risk 07/20/2023 07/20/2023 07/31/2023 1:22 AM EST CoV-Risk Comment:Per note documentation 06/06/2024 06/06/2024 10:40 AM EST CoV-Risk 08/31/2024 08/31/2024 09/11/2024 1:23 AM EST documented as of this encounter Care Teams Livestock Farmers Relationship Specialty Start Date End Date Ailin Araujo MD [address] [place] [address] PCP - General Family Medicine 05/13/17 documented as of this encounter Additional Source Comments The information contained in this document represents components of the legal health record. It is not the complete legal health record.[facility]
--- OUTSIDE RECORDS SUMMARY | 2025-04-26 14:30 | XMS_ITS | Encounter Summary ---
Author Organization [facility] Address [address] [facility] [address] [place] [address] Phone Care Team Providers Care Costume Specialist Name Role Phone Ailin Araujo MD Primary Care Provider Encounter Details Date Type Department Care Team (Late st Contact Info) Description 05/29/2022 Procedure Pass [facility], Ct Scan - [address] [address] Social History Tobacco Use Types Packs/Day Years [...] 05/29/2022 12:04 PM Luis Rg RN * [place] Suicide Severity Rating Scale (Screener/Recent Self-Report) Question [...] Description 06/03/2025 11:00 AM EST Office Visit [facility] Neurology [address] [place] [address] Natalie Syed FNP [address] [facility], 2nd [place] [address] [email or web address] 12/18/2025 11:30 AM EDT Office Visit [facility] [address] [facility] 3rd Floor, [address] [place] [address] Angelic Cesar DNP 22 [facility], [address] [address] [email or web address] documented as of this encounter Visit Diagnoses Not on filedocumented in this encounter Additional Health Concerns Infection Onset Date Last Indicated Resolved Time CoV-Risk 07/20/2023 07/20/2023 07/31/2023 1:22 AM EST CoV-Risk Comment:Per note documentation 06/06/2024 06/06/2024 10:40 AM EST CoV-Risk 08/31/2024 08/31/2024 09/11/2024 1:23 AM EST documented as of this encounter Care Teams Costume Specialist Relationship Specialty Start Date End Date Ailin Araujo MD [address] [place] [phone] PCP - General Family Medicine 05/13/17 documented as of this encounter Additional Source Comments The information contained in this document represents components of the legal health record. It is not the complete legal health record.[facility]
--- OUTSIDE RECORDS SUMMARY | 2025-04-26 14:31 | XMS_ITS | Encounter Summary ---
Author Organization [facility] Address [address] [address] Phone Care Team Providers Care Reading Efficiency Course Director Name Role Phone Ailin Araujo MD Primary Care Provider Reason for Visit * Reason Comments Medication Refill Encounter Details Date Type Department Care Team (Late st Contact Info) Description 04/27/2018 Refill [facility] Neurology Resident [address] [place] [address] Luan Almonte MD [address] [place] [address] [email or web address] Medication Refill Social History Tobacco Use Types Packs/Day Years Used Date Smoking Tobacco: Every Day Cigarettes Smokeless Tobacco: Never Comments Unknown Sex and Gender Information Value [...] EST Office Visit [facility] Neurology [address] [place] [address] Natalie Syed, BENCH PATTERNMAKER METAL [address], 2nd [place] [address] 12/18/2025 11:30 AM EDT Office Visit [facility] [address] 3rd Floor, [address] [place] [address] Angelic Cesar, NEAL 22 [facility], [address] [place] [address] [email or web address] documented as of this encounter Visit Diagnoses Not on filedocumented in this encounter Additional Health Concerns Infection Onset Date Last Indicated Resolved Time CoV-Risk 07/20/2023 07/20/2023 07/31/2023 1:22 AM EST CoV-Risk Comment:Per note documentation 06/06/2024 06/06/2024 10:40 AM EST CoV-Risk 08/31/2024 08/31/2024 09/11/2024 1:23 AM EST documented as of this encounter Care Teams Reading Efficiency Course Director Relationship Specialty Start Date End Date Ailin Araujo MD [address] [place] [address] PCP - General Family Medicine 05/13/17 documented as of this encounter Additional Source Comments The information contained in this document represents components of the legal health record. It is not the complete legal health record.[facility]
--- OUTSIDE RECORDS SUMMARY | 2025-04-26 14:31 | XMS_ITS | Encounter Summary ---
Author Organization [facility] Address [address] [facility] [address] [place] [address] Phone Care Team Providers Care Pants Presser Name Role Phone Ailin Araujo MD Primary Care Provider Encounter Details Date Type Department Care Team (Late st Contact Info) Description 11/21/2024 Procedure Pass [facility], Ct Scan - [address] [address] Social History Tobacco Use Types Packs/Day Years [...] have you moved in the past 12 mon ths? Unable to assess 11/21/2024 Paying for [...] 12:21 AM EDT Heather Lopez RN * [place] Suicide Severity Rating Scale (Screener/Recent Self-Report) Question Answer Date of Assessment Author 1. Wish to be (Past 1 Month) No 025 12:21 AM EDT Heather Lopez RN 2. Non-Specific Active Suici luis Thoughts (Past 1 Month) No 11/22/2024 12:21 AM [place]ER[place] Heather Lopez RN 6. Suicidal Behavior (Lifetime) No 12:21 AM EDT Heather Lopez RN documented as of this encounter Plan of Treatment Upcoming Encounters Date Type Department Care Team (Late st Contact Info) Description 06/03/2025 11:00 AM EST Office Visit [facility] Neurology [address] [place] [address] Natalie Syed FNP 15 [facility], 2nd [place] [address] 12/18/2025 11:30 AM EDT Office Visit [facility] 22 [facility] 3rd Floor, [address] [place] [address] Angelic Cesar DNP 22 [facility], [address] [address] [email or web address] documented as of this encounter Visit Diagnoses Not on filedocumented in this encounter Care Teams Pants Presser Relationship Specialty Start Date End Date Ailin Araujo MD [address] [place] [address] PCP - General Family Medicine 05/13/17 documented as of this encounter Additional Source Comments The information contained in this document represents components of the legal health record. It is not the complete legal health record.[facility]
--- OUTSIDE RECORDS SUMMARY | 2025-04-26 14:31 | XMS_ITS | Encounter Summary ---
Author Organization [facility] Address [address] [facility] [address] [place] [address] Phone Care Team Providers Care Typesetter Perforator Operator Name Role Phone Ailin Araujo MD Primary Care Provider Encounter Details Date Type Department Care Team (Late st Contact Info) Description 09/06/2022 Procedure Pass [facility], Ct Scan - [address] [address] Social History Tobacco Use Types Packs/Day Years [...] Date of Assessment Author No Risk Indicated 09/07/2022 6:30 AM Jinny Goff RN * [place] Suicide Severity Rating Scale (Screener/Recent Self-Report) Question Answer Date of Assessment Author 1. Wish to be (Past 1 Month) No 09/07/2022 6:[address] RN 2. Non-Specific Active Suicidal Thoughts (Past 1 Month) No 09/07/2022 6:[address] RN 6. Suicidal Behavior (Lifetime) No 09/07/2022 6:[address] RN documented as of this encounter Plan of Treatment Upcoming Encounters Date Type Department Care Team (Late st Contact Info) Description 06/03/2025 11:00 AM EST Office Visit [facility] Neurology [address] [place] [address] Natalie Syed FNP 15 [facility], 2nd [place] [address] 12/18/2025 11:30 AM EDT Office Visit [facility] [address] [place] [address] [facility], [address] [place] [address] Angelic Cesar DNP 22 [facility], [address] [address] documented as of this encounter Visit Diagnoses Not on filedocumented in this encounter Additional Health Concerns Infection Onset Date Last Indicated Resolved Time CoV-Risk 07/20/2023 07/20/2023 07/31/2023 1:22 AM EST CoV-Risk Comment:Per note documentation 06/06/2024 06/06/2024 10:40 AM EST CoV-Risk 08/31/2024 08/31/2024 09/11/2024 1:23 AM EST documented as of this encounter Care Teams Typesetter Perforator Operator Relationship Specialty Start Date End Date Ailin Araujo MD [address] [place] [address] PCP - General Family Medicine 05/13/17 documented as of this encounter Additional Source Comments The information contained in this document represents components of the legal health record. It is not the complete legal health record.[facility]
--- OUTSIDE RECORDS SUMMARY | 2025-04-26 14:31 | XMS_ITS | Encounter Summary ---
Author Organization [facility] Address [address] [facility] [address] [place] [address] Phone Care Team Providers Care Vice President Quality Name Role Phone Ailin Araujo MD Primary Care Provider Encounter Details Date Type Department Care Team (Late st Contact Info) Description 11/21/2024 Procedure Pass [facility], Ct Scan - [address] [address] Social History Tobacco Use Types Packs/Day Years [...] 12:21 AM EDT Heather Lopez RN * [place] Suicide Severity Rating Scale (Screener/Recent Self-Report) Question [...] Description 06/03/2025 11:00 AM EST Office Visit [facility] Neurology [address] [place] [address] Natalie Syed FNP 15 [facility], 2nd [place] [address] 12/18/2025 11:30 AM EDT Office Visit [facility] 22 [facility] 3rd Floor, [address] [place] [address] Angelic Cesar DNP 22 [facility], [address] [address] [email or web address] documented as of this encounter Visit Diagnoses Not on filedocumented in this encounter Care Teams Vice President Quality Relationship Specialty Start Date End Date Ailin Araujo MD [address] [place] [address] PCP - General Family Medicine 05/13/17 documented as of this encounter Additional Source Comments The information contained in this document represents components of the legal health record. It is not the complete legal health record.[facility]
--- OUTSIDE RECORDS SUMMARY | 2025-04-26 14:31 | XMS_ITS | Encounter Summary ---
Author Organization [facility] Address [address] [facility] [address] [place] [address] Phone Care Team Providers Care Career Placement Specialist Name Role Phone Ailin Araujo MD Primary Care Provider Encounter Details Date Type Department Care Team (Late st Contact Info) Description 10/24/2022 Procedure Pass [facility], Ct Scan - [address] [address] Social History Tobacco Use Types Packs/Day Years [...] Date of Assessment Author No Risk Indicated 10/27/2022 11:02 AM EDT Abeba Diaz RN * [place] Suicide Severity Rating Scale (Screener/Recent Self-Report) Question Answer Date of Assessment Author 1. Wish to be (Past 1 Month) No 10/27/2022 11:02 AM EDT Dixie Correa RN 2. Non-Specific Active Suicidal Thoughts (Past 1 Month) No 10/27/2022 11:02 AM EDT Dixie Correa RN 6. Suicidal Behavior (Lifetime) No 10/27/2022 11:02 AM EDT Dixie Correa RN documented as of this encounter Plan of Treatment Upcoming Encounters Date Type Department Care Team (Late st Contact Info) Description 06/03/2025 11:00 AM EST Office Visit [facility] Neurology [address] [place] [address] Natalie Syed, WINDOWS SOFTWARE DEVELOPER 15 [facility], 2nd [place] [address] 12/18/2025 11:30 AM EDT Office Visit [facility] [address] [place] [address] 3rd [facility], [address] [place] [address] Angelic Cesar DNP 22 [facility], [address] [address] documented as of this encounter Visit Diagnoses Not on filedocumented in this encounter Additional Health Concerns Infection Onset Date Last Indicated Resolved Time CoV-Risk 07/20/2023 07/20/2023 07/31/2023 1:22 AM EST CoV-Risk Comment:Per note documentation 06/06/2024 06/06/2024 10:40 AM EST CoV-Risk 08/31/2024 08/31/2024 09/11/2024 1:23 AM EST documented as of this encounter Care Teams Career Placement Specialist Relationship Specialty Start Date End Date Ailin Araujo MD [address] [place] [address] PCP - General Family Medicine 05/13/17 documented as of this encounter Additional Source Comments The information contained in this document represents components of the legal health record. It is not the complete legal health record.[facility]
--- OUTSIDE RECORDS SUMMARY | 2025-04-26 14:31 | XMS_ITS | Encounter Summary ---
Author Organization [facility] Address 399 [facility] [address] [place] [address] Phone Care Team Providers Care Web Communications Specialist Name Role Phone Pcp, Not Required Primary Care Provider Ailin Middleton MD Primary Care Provider Encounter Details Date Type Department Care Team (Late st Contact Info) Description 01/13/2017 Procedure Pass [facility] [address] [place] [address] Social History Tobacco Use Types Packs/Day Years [...] Description 06/03/2025 11:00 AM EST Office Visit [facility] Neurology [address] [place] [address] Yamilet Syedh Meliza, FOOD CLERK 15 [facility], 2nd [place] [address] 12/18/2025 11:30 AM EDT Office Visit [facility] 22 [facility] 3rd Floor, [address] [place] [address] Angelic Cesar DNP 22 [facility], [address] [place] [address] [email or web address] documented as of this encounter Visit Diagnoses Not on filedocumented in this encounter Additional Health Concerns Infection Onset Date Last Indicated Resolved Time CoV-Risk 07/20/2023 07/20/2023 07/31/2023 1:22 AM EST CoV-Risk Comment:Per note documentation 06/06/2024 06/06/2024 10:40 AM EST CoV-Risk 08/31/2024 08/31/2024 09/11/2024 1:23 AM EST documented as of this encounter Care Teams Web Communications Specialist Relationship Specialty Start Date End Date Pcp, Not Required [address] [place] [address] PCP - General 12/31/16 05/12/17 Ailin Araujo MD [address] [place] [address] PCP - General Family Medicine 05/13/17 documented as of this encounter Additional Source Comments The information contained in this document represents components of the legal health record. It is not the complete legal health record.[facility]
--- OUTSIDE RECORDS SUMMARY | 2025-04-26 14:31 | XMS_ITS | Encounter Summary ---
Author Organization [facility] Address [address] [facility] [address] [place] [address] Phone Care Team Providers Care Identity Management Consultant Name Role Phone Ailin Araujo MD Primary Care Provider Encounter Details Date Type Department Care Team (Late st Contact Info) Description 04/02/2022 Procedure Pass [facility], Ct Scan - [address] [address] Social History Tobacco Use Types Packs/Day Years [...] Date of Assessment Author No Risk Indicated 04/02/2022 3:58 AM EDT Sylvia Hernandez RN * [place] Suicide Severity Rating Scale (Screener/Recent Self-Report) Question Answer Date of Assessment Author 1. Wish to be (Past 1 Month) No 04/02/2022 3:58 AM EDT Sylvia Padilla RN 2. Non-Specific Active Suicidal Thoughts (Past 1 Month) No 04/02/2022 3:58 AM EDT Sylvia Padilla RN 6. Suicidal Behavior (Lifetime) No 04/02/2022 3:58 AM EDT Sylvia Padilla RN documented as of this encounter Plan of Treatment Upcoming Encounters Date Type Department Care Team (Late st Contact Info) Description 06/03/2025 11:00 AM EST Office Visit [facility] Neurology [address] [place] [address] Natalie Syed FNP 15 [facility], 2nd [place] [address] [email or web address] 12/18/2025 11:30 AM EDT Office Visit [facility] 22 [facility] 3rd Floor, [address] [place] [address] Angelic Cesar DNP 22 [facility], [address] [address] [email or web address] documented as of this encounter Visit Diagnoses Not on filedocumented in this encounter Additional Health Concerns Infection Onset Date Last Indicated Resolved Time CoV-Risk 07/20/2023 07/20/2023 07/31/2023 1:22 AM EST CoV-Risk Comment:Per note documentation 06/06/2024 06/06/2024 10:40 AM EST CoV-Risk 08/31/2024 08/31/2024 09/11/2024 1:23 AM EST documented as of this encounter Care Teams Identity Management Consultant Relationship Specialty Start Date End Date Ailin Araujo MD [address] [place] [address] PCP - General Family Medicine 05/13/17 documented as of this encounter Additional Source Comments The information contained in this document represents components of the legal health record. It is not the complete legal health record.[facility]
--- OUTSIDE RECORDS SUMMARY | 2025-04-26 14:31 | XMS_ITS | Encounter Summary ---
Author Organization [facility] Address 399 [facility] [address] [place] [address] Phone Care Team Providers Care Wing Scorer Name Role Phone Pcp, Not Required Primary Care Provider Ailin Middleton MD Primary Care Provider Encounter Details Date Type Department Care Team (Late st Contact Info) Description 01/13/2017 Procedure Pass [facility] [address] [place] [address] Social History Tobacco Use Types Packs/Day Years [...] Description 06/03/2025 11:00 AM EST Office Visit [facility] Neurology [address] [place] [address] Yamliet Syedh Meliza, APPLIANCE SALES ASSOCIATE 15 [facility], 2nd [place] [address] 12/18/2025 11:30 AM EDT Office Visit [facility] 22 [facility] 3rd Floor, [address] [place] [address] Angelic Cesar DNP 22 [facility], [address] [place] [address] [email or web address] documented as of this encounter Visit Diagnoses Not on filedocumented in this encounter Additional Health Concerns Infection Onset Date Last Indicated Resolved Time CoV-Risk 07/20/2023 07/20/2023 07/31/2023 1:22 AM EST CoV-Risk Comment:Per note documentation 06/06/2024 06/06/2024 10:40 AM EST CoV-Risk 08/31/2024 08/31/2024 09/11/2024 1:23 AM EST documented as of this encounter Care Teams Wing Scorer Relationship Specialty Start Date End Date Pcp, Not Required [address] [place] [address] PCP - General 12/31/16 05/12/17 Ailin Araujo MD [address] [place] [address] PCP - General Family Medicine 05/13/17 documented as of this encounter Additional Source Comments The information contained in this document represents components of the legal health record. It is not the complete legal health record.[facility]
--- OUTSIDE RECORDS SUMMARY | 2025-04-26 14:31 | XMS_ITS | Encounter Summary ---
Author Organization [facility] Address 399 [facility] [address] [place] [phone] Phone Care Team Providers Care Cyber Security Instructor Name Role Phone Ailin Araujo MD Primary Care Provider Encounter Details Date Type Department Care Team (Late st Contact Info) Description 10/27/[address] [facility] [place] [address] [place] [address], 6th [place] [address] Social History Tobacco Use Types Packs/Day Years [...] 06/03/2025 11:00 AM EST Office Visit [facility] Neurology [address] [place] [address] Natalie Syed FNP 15 [facility], 2nd [place] [address] 12/18/2025 11:30 AM EDT Office Visit [facility] 22 [facility] 3rd Floor, [address] [place] [address] Angelic Cesar DNP 22 [facility], [address] [place] [address] [email or web address] documented as of this encounter Visit Diagnoses Not on filedocumented in this encounter Additional Health Concerns Infection Onset Date Last Indicated Resolved Time CoV-Risk 07/20/2023 07/20/2023 07/31/2023 1:22 AM EST CoV-Risk Comment:Per note documentation 06/06/2024 06/06/2024 10:40 AM EST CoV-Risk 08/31/2024 08/31/2024 09/11/2024 1:23 AM EST documented as of this encounter Care Teams Cyber Security Instructor Relationship Specialty Start Date End Date Ailin Araujo MD [address] [place] [address] PCP - General Family Medicine 05/13/17 documented as of this encounter Additional Source Comments The information contained in this document represents components of the legal health record. It is not the complete legal health record.[facility]
--- OUTSIDE RECORDS SUMMARY | 2025-04-26 14:31 | XMS_ITS | Encounter Summary ---
Author Organization [facility] Address [address] [employer] [facility] [address] [place] [address] Phone Care Team Providers Care Staff Radiographer Name Role Phone Ailin Araujo MD Primary Care Provider Encounter Details Date Type Department Care Team (Late st Contact Info) Description 01/19/2022 Procedure Pass [facility], Ct Scan - [address] [address] Social History Tobacco Use Types Packs/Day Years [...] Date of Assessment Author No Risk Indicated 01/19/2022 1:32 PM EDT Vickie Tate RN * [place] Suicide Severity Rating Scale (Screener/Recent Self-Report) Question Answer Date of Assessment Author 1. Wish to be (Past 1 Month) No 022 1:32 PM EDT Vickie Tate, [place] 2. Non-Specific Active Suici luis Thoughts (Past 1 Month) No 01/19/2022 1:32 PM EDT Vickie Tate , [place] 6. Suicidal Behavior (Lifetime) No 1:32 PM EDT Vickie Tate, [place] documented as of this encounter Plan of Treatment Upcoming Encounters Date Type Department Care Team (Late st Contact Info) Description 06/03/2025 11:00 AM EST Office Visit [facility] Neurology [address] [place] [address] Natalie Syed FNP 15 [facility], 2nd [place] [address] 12/18/2025 11:30 AM EDT Office Visit [facility] 22 [facility] 3rd Floor, [address] [place] [address] Angelic Cesar DNP 22 [facility], [address] [address] [email or web address] documented as of this encounter Visit Diagnoses Not on filedocumented in this encounter Additional Health Concerns Infection Onset Date Last Indicated Resolved Time CoV-Risk 07/20/2023 07/20/2023 07/31/2023 1:22 AM EST CoV-Risk Comment:Per note documentation 06/06/2024 06/06/2024 10:40 AM EST CoV-Risk 08/31/2024 08/31/2024 09/11/2024 1:23 AM EST documented as of this encounter Care Teams Staff Radiographer Relationship Specialty Start Date End Date Ailin Araujo MD [address] [place] [address] PCP - General Family Medicine 05/13/17 documented as of this encounter Additional Source Comments The information contained in this document represents components of the legal health record. It is not the complete legal health record.[facility]
--- OUTSIDE RECORDS SUMMARY | 2025-04-26 14:31 | XMS_ITS | Encounter Summary ---
Author Organization [facility] Address [address] [facility] [facility] [address] [place] [phone] Phone Care Team Providers Care Home Service Demonstrator Name Role Phone Ailin Araujo MD Primary Care Provider Encounter Details Date Type Department Care Team (Late st Contact Info) Description 01/19/2022 Procedure Pass [facility], Ct Scan - [address] [address] Social History Tobacco Use Types Packs/Day Years [...] 1:32 PM EDT Vickie Tate RN * [place] Suicide Severity Rating Scale (Screener/Recent Self-Report) Question [...] Description 06/03/2025 11:00 AM EST Office Visit [facility] Neurology [address] [place] [address] Natalie Syed FNP 15 [facility], 2nd [place] [address] 12/18/2025 11:30 AM EDT Office Visit [facility] 22 [facility] 3rd Floor, [address] [place] [address] Angelic Cesar DNP 22 [facility], [address] [address] [email or web address] documented as of this encounter Visit Diagnoses Not on filedocumented in this encounter Additional Health Concerns Infection Onset Date Last Indicated Resolved Time CoV-Risk 07/20/2023 07/20/2023 07/31/2023 1:22 AM EST CoV-Risk Comment:Per note documentation 06/06/2024 06/06/2024 10:40 AM EST CoV-Risk 08/31/2024 08/31/2024 09/11/2024 1:23 AM EST documented as of this encounter Care Teams Home Service Demonstrator Relationship Specialty Start Date End Date Ailin Araujo MD [address] [place] [phone] PCP - General Family Medicine 05/13/17 documented as of this encounter Additional Source Comments The information contained in this document represents components of the legal health record. It is not the complete legal health record.[facility]
--- OUTSIDE RECORDS SUMMARY | 2025-04-26 14:31 | XMS_ITS | Encounter Summary ---
Author Organization [facility] Address 399 [facility] [address] [place] [address] Phone Care Team Providers Care Escalator Installer Name Role Phone Ailin Araujo MD Primary Care Provider Encounter Details Date Type Department Care Team (Late st Contact Info) Description 09/06/2022 Procedure Pass [facility], Ct Scan - [address] [address] Social History Tobacco Use Types Packs/Day Years [...] 09/07/2022 6:30 AM Jinny Goff RN * [place] Suicide Severity Rating Scale (Screener/Recent Self-Report) Question [...] Description 06/03/2025 11:00 AM EST Office Visit [facility] Neurology [address] [place] [address] Natalie Syed FNP 15 [facility], 2nd [place] [address] 12/18/2025 11:30 AM EDT Office Visit [facility] [address] [place] [address] 3rd [facility], [address] [place] [address] Angelic Cesar DNP 22 [facility], [address] [address] documented as of this encounter Visit Diagnoses Not on filedocumented in this encounter Additional Health Concerns Infection Onset Date Last Indicated Resolved Time CoV-Risk 07/20/2023 07/20/2023 07/31/2023 1:22 AM EST CoV-Risk Comment:Per note documentation 06/06/2024 06/06/2024 10:40 AM EST CoV-Risk 08/31/2024 08/31/2024 09/11/2024 1:23 AM EST documented as of this encounter Care Teams Escalator Installer Relationship Specialty Start Date End Date Ailin Araujo MD [address] [place] [address] PCP - General Family Medicine 05/13/17 documented as of this encounter Additional Source Comments The information contained in this document represents components of the legal health record. It is not the complete legal health record.[facility]
--- OUTSIDE RECORDS SUMMARY | 2025-04-26 14:31 | XMS_ITS | Encounter Summary ---
Author Organization [facility] Address 399 [facility] [address] [place] [address] Phone Care Team Providers Care Filing And Polishing Supervisor Name Role Phone Ailin Araujo MD Primary Care Provider Encounter Details Date Type Department Care Team (Latest Contact Info) Description 11/24/2020 Transcribe Orders Virtual Department [address] [place] [address] Nancy Cardenas MD, MBBS [address] [phone] [email or web address] Pre-procedure lab exam (Primary Dx) Social History Tobacco Use Types Packs/Day Years [...] Date of Assessment Author No Risk Indicated 11/26/2020 5:00 PM EDT Vidya Simpson RN * [place] Suicide Severity Rating Scale (Screener/Recent Self-Report) Question Answer Date of Assessment Author 1. Wish to be (Past 1 Month) No 11/26/2020 5:00 PM EDT Vidya Simpson RN 2. Non-Specific Active Suici luis Thoughts (Past 1 Month) No 11/26/2020 5:00 PM EDT Willie Simpson RN 6. Suicidal Behavior (Lifetime) No 5:00 PM EDT Vidya Simpson RN documented as of this encounter Plan of Treatment Upcoming Encounters Date Type Department Care Team (Late st Contact Info) Description 06/03/2025 11:00 AM EST Office Visit [facility] Neurology [address] [place] [address] [place] [address] Natalie Syed FNP 15 [facility], 2nd [place] [address] 12/18/2025 11:30 AM EDT Office Visit [facility] [address] [place] [address] 3rd Floor, [address] [place] [address] Angelic Cesar DNP 22 [facility], [address] [address] [email or web address] documented as of this encounter Results * COVID-19 PCR Order (11/24/2020 11:25 AM EDT) COVID-19 Comment [id number] [facility] COVID Testing Status Sent to [facility] 11/24/2020 11:2 5 AM EDT 11/24/2020 12:59 PM EDT us Nancy Cardenas MD, MAGDALENA BODY FLUIDS AND STOOLS OR DERABLES Final Result [facility] [address] [place] [address] documented in this encounter Visit Diagnoses Diagnosis Pre-procedure lab exam- Primary Pre-procedural laboratory examination documented in this encounter Additional Health Concerns Infection Onset Date Last Indicated Resolved Time CoV-Risk 07/20/2023 07/20/2023 07/31/2023 1:22 AM EST CoV-Risk Comment:Per note documentation 06/06/2024 06/06/2024 10:40 AM EST CoV-Risk 08/31/2024 08/31/2024 09/11/2024 1:23 AM EST documented as of this encounter Care Teams Filing And Polishing Supervisor Relationship Specialty Start Date End Date Ailin Araujo MD [address] [place] [address] PCP - General Family Medicine 05/13/17 documented as of this encounter Additional Source Comments The information contained in this document represents components of the legal health record. It is not the complete legal health record.[facility]
--- OUTSIDE RECORDS SUMMARY | 2025-04-26 14:31 | XMS_ITS | Encounter Summary ---
Author Organization [facility] Address [address] [facility] [address] [place] [address] Phone Care Team Providers Care Secretary Of State Name Role Phone Pcp, Not Required Primary Care Provider Ailin Middleton MD Primary Care Provider Encounter Details Date Type Department Care Team (Late st Contact Info) Description 01/13/2017 Procedure Pass [facility] [address] [place] [address] Social History Tobacco Use Types Packs/Day Years [...] Description 06/03/2025 11:00 AM EST Office Visit [facility] [address] [place] [address] Yamilet Syedh Meliza, AUDIO VISUAL MANAGER 15 [facility], 2nd [place] [address] 12/18/2025 11:30 AM EDT Office Visit [facility] 22 [facility] 3rd Floor, [address] [place] [address] Angelic Cesar DNP 22 [facility], [address] [place] [address] [email or web address] documented as of this encounter Visit Diagnoses Not on filedocumented in this encounter Additional Health Concerns Infection Onset Date Last Indicated Resolved Time CoV-Risk 07/20/2023 07/20/2023 07/31/2023 1:22 AM EST CoV-Risk Comment:Per note documentation 06/06/2024 06/06/2024 10:40 AM EST CoV-Risk 08/31/2024 08/31/2024 09/11/2024 1:23 AM EST documented as of this encounter Care Teams Secretary Of State Relationship Specialty Start Date End Date Pcp, Not Required [address] [place] [address] PCP - General 12/31/16 05/12/17 Ailin Araujo MD [address] [place] [address] PCP - General Family Medicine 05/13/17 documented as of this encounter Additional Source Comments The information contained in this document represents components of the legal health record. It is not the complete legal health record.[facility]
--- OUTSIDE RECORDS SUMMARY | 2025-04-26 14:32 | XMS_ITS | Encounter Summary ---
Author Organization [facility] Address [address] [employer] [facility] [address] [place] [address] Phone Care Team Providers Care Search Engine Optimization Manager Name Role Phone Ailin Araujo MD Primary Care Provider Encounter Details Date Type Department Care Team (Late st Contact Info) Description 04/19/2022 Procedure Pass [facility], Ct Scan - [address] [address] Social History Tobacco Use Types Packs/Day Years [...] Date of Assessment Author No Risk Indicated 04/19/2022 4:47 PM EDT Trammell, Melanie A, RN * [place] Suicide Severity Rating Scale (Screener/Recent Self-Report) Question Answer Date of Assessment Author 1. Wish to be (Past 1 Month) No 04/19/2022 4:47 PM EDT Melanie Trammell RN 2. Non-Specific Active Suici luis Thoughts (Past 1 Month) No 04/19/2022 4:47 PM EDT David Trammell RN 6. Suicidal Behavior (Lifetime) No 4:47 PM EDT Melanie Trammell RN documented as of this encounter Plan of Treatment Upcoming Encounters Date Type Department Care Team (Late st Contact Info) Description 06/03/2025 11:00 AM EST Office Visit [facility] Neurology [address] [place] [address] Natalie Syed FNP 15 [facility], 2nd [place] [address] [email or web address] 12/18/2025 11:30 AM EDT Office Visit [facility] 22 [facility] 3rd Floor, [address] [place] [address] Angelic Cesar DNP 22 [facility], [address] [address] [email or web address] documented as of this encounter Visit Diagnoses Not on filedocumented in this encounter Additional Health Concerns Infection Onset Date Last Indicated Resolved Time CoV-Risk 07/20/2023 07/20/2023 07/31/2023 1:22 AM EST CoV-Risk Comment:Per note documentation 06/06/2024 06/06/2024 10:40 AM EST CoV-Risk 08/31/2024 08/31/2024 09/11/2024 1:23 AM EST documented as of this encounter Care Teams Search Engine Optimization Manager Relationship Specialty Start Date End Date Ailin Araujo MD [address] [place] [address] PCP - General Family Medicine 05/13/17 documented as of this encounter Additional Source Comments The information contained in this document represents components of the legal health record. It is not the complete legal health record.[facility]
--- OUTSIDE RECORDS SUMMARY | 2025-04-26 14:32 | XMS_ITS | Encounter Summary ---
Author Organization [facility] Address [address] [facility] [address] [place] [address] Phone Care Team Providers Care Data Technician Name Role Phone Ailin Araujo MD Primary Care Provider Encounter Details Date Type Department Care Team (Late st Contact Info) Description 05/04/2022 Procedure Pass [facility], Ct Scan - [address] [address] Social History Tobacco Use Types Packs/Day Years [...] 9:06 AM EDT Ariadna Kimball, RN * [place] Suicide Severity Rating Scale (Screener/Recent Self-Report) Question [...] 11:00 AM EST Office Visit [facility] [address] [place] [address] Natalie Syed, NATA 15 [facility], 2nd [place] [address] [email or web address] 12/18/2025 11:30 AM EDT Office Visit [facility] 22 [facility] 3rd Floor, [address] [place] [address] Angelic Cesar DNP 22 [facility], [facility] [address] [place] [address] [email or web address] documented as of this encounter Visit Diagnoses Not on filedocumented in this encounter Additional Health Concerns Infection Onset Date Last Indicated Resolved Time CoV-Risk 07/20/2023 07/20/2023 07/31/2023 1:22 AM EST CoV-Risk Comment:Per note documentation 06/06/2024 06/06/2024 10:40 AM EST CoV-Risk 08/31/2024 08/31/2024 09/11/2024 1:23 AM EST documented as of this encounter Care Teams Data Technician Relationship Specialty Start Date End Date Ailin Araujo MD [address] [place] [address] PCP - General Family Medicine 05/13/17 documented as of this encounter Additional Source Comments The information contained in this document represents components of the legal health record. It is not the complete legal health record.[facility]
--- OUTSIDE RECORDS SUMMARY | 2025-04-26 14:32 | XMS_ITS | Encounter Summary ---
Author Organization [facility] Address [address] [facility] [address] [place] [address] Phone Care Team Providers Care Cupola Mechanic Name Role Phone Ailin Araujo MD Primary Care Provider Encounter Details Date Type Department Care Team (Late st Contact Info) Description 10/27/2022 Procedure Pass [facility], Ct Scan - [address] [address] Social History Tobacco Use Types Packs/Day Years [...] 11:02 AM EDT Abeba Diaz RN * [place] Suicide Severity Rating Scale (Screener/Recent Self-Report) Question [...] Description 06/03/2025 11:00 AM EST Office Visit [facility]rology [address] [place] [address] Natalie Syed, FISH CHECKER 15 [facility], 2nd [place] [address] 12/18/2025 11:30 AM EDT Office Visit [facility] [address] [place] [address] 3rd Floor, [address] [place] [address] Angelic Cesar DNP 22 [facility], [address] [address] documented as of this encounter Visit Diagnoses Not on filedocumented in this encounter Additional Health Concerns Infection Onset Date Last Indicated Resolved Time CoV-Risk 07/20/2023 07/20/2023 07/31/2023 1:22 AM EST CoV-Risk Comment:Per note documentation 06/06/2024 06/06/2024 10:40 AM EST CoV-Risk 08/31/2024 08/31/2024 09/11/2024 1:23 AM EST documented as of this encounter Care Teams Cupola Mechanic Relationship Specialty Start Date End Date Ailin Araujo MD [address] [place] [address] PCP - General Family Medicine 05/13/17 documented as of this encounter Additional Source Comments The information contained in this document represents components of the legal health record. It is not the complete legal health record.[facility]
--- OUTSIDE RECORDS SUMMARY | 2025-04-26 14:32 | XMS_ITS | Encounter Summary ---
Author Organization [facility] Address [address] [facility] [address] [place] [address] Phone Care Team Providers Care Manager Ems Name Role Phone Ailin Araujo MD Primary Care Provider Encounter Details Date Type Department Care Team (Late st Contact Info) Description 10/27/2022 Procedure Pass [facility], Ct Scan - [address] [address] Social History Tobacco Use Types Packs/Day Years [...] 11:02 AM EDT Abeba Diaz RN * [place] Suicide Severity Rating Scale (Screener/Recent Self-Report) Question [...] Office Visit [facility] [address] [place] [address] Natalie Syed, ASSOCIATE PROFESSOR OF HISTORY 15 [facility], 2nd [place] [address] 12/18/2025 11:30 AM EDT Office Visit [facility] [address] [place] [address] 3rd Floor, [address] [place] [address] Angelic Cesar DNP 22 [facility], [address] [address] documented as of this encounter Visit Diagnoses Not on filedocumented in this encounter Additional Health Concerns Infection Onset Date Last Indicated Resolved Time CoV-Risk 07/20/2023 07/20/2023 07/31/2023 1:22 AM EST CoV-Risk Comment:Per note documentation 06/06/2024 06/06/2024 10:40 AM EST CoV-Risk 08/31/2024 08/31/2024 09/11/2024 1:23 AM EST documented as of this encounter Care Teams Manager Ems Relationship Specialty Start Date End Date Ailin Araujo MD [address] [place] [address] PCP - General Family Medicine 05/13/17 documented as of this encounter Additional Source Comments The information contained in this document represents components of the legal health record. It is not the complete legal health record.[facility]
--- OUTSIDE RECORDS SUMMARY | 2025-04-26 14:32 | XMS_ITS | Encounter Summary ---
Author Organization [facility] Address [address] [facility] [address] [place] [address] Phone Care Team Providers Care Tile Erector Name Role Phone Ailin Araujo MD Primary Care Provider Encounter Details Date Type Department Care Team (Late st Contact Info) Description 10/27/2022 Procedure Pass [facility], Ct Scan - [address] [address] Social History Tobacco Use Types Packs/Day Years [...] 11:02 AM EDT Abeba Diaz RN * [place] Suicide Severity Rating Scale (Screener/Recent Self-Report) Question [...] Description 06/03/2025 11:00 AM EST Office Visit [facility] [address] [place] [address] Natalie Syed, DIRECT CARE WORKER 15 [facility], 2nd [place] [address] 12/18/2025 11:30 AM EDT Office Visit [facility] [address] [place] [address] 3rd Floor, [address] [place] [address] Angelic Cesar DNP 22 [facility], [address] [address] documented as of this encounter Visit Diagnoses Not on filedocumented in this encounter Additional Health Concerns Infection Onset Date Last Indicated Resolved Time CoV-Risk 07/20/2023 07/20/2023 07/31/2023 1:22 AM EST CoV-Risk Comment:Per note documentation 06/06/2024 06/06/2024 10:40 AM EST CoV-Risk 08/31/2024 08/31/2024 09/11/2024 1:23 AM EST documented as of this encounter Care Teams Tile Erector Relationship Specialty Start Date End Date Ailin Araujo MD [address] [place] [address] PCP - General Family Medicine 05/13/17 documented as of this encounter Additional Source Comments The information contained in this document represents components of the legal health record. It is not the complete legal health record.[facility]
--- OUTSIDE RECORDS SUMMARY | 2025-04-26 14:32 | XMS_ITS | Encounter Summary ---
Author Organization [facility] Address [address] [facility] [address] [place] [address] Phone Care Team Providers Care Hand Drawer In Name Role Phone Ailin Araujo MD Primary Care Provider Encounter Details Date Type Department Care Team (Late st Contact Info) Description 12/05/2018 EpicOnHand Encounter [facility] [place] [facility] 6 Neuro ICU [address] [place] [phone] Tima Girard MD [address] [place] [address] [email or web address] Social History Tobacco Use Types Packs/Day [...] Description 06/03/2025 11:00 AM EST [facility] [address] [place] [address] Natalie Syed, CONTRACT SPECIALIST [facility] [address], 2nd [place] [address] 12/18/2025 11:30 AM EDT Office Visit [facility] [address] 3rd Floor, [address] [place] [address] Angelic Cesar DNP 22 [facility], [address] [place] [address] [email or web address] documented as of this encounter Visit Diagnoses Not on filedocumented in this encounter Additional Health Concerns Infection Onset Date Last Indicated Resolved Time CoV-Risk 07/20/2023 07/20/2023 07/31/2023 1:22 AM EST CoV-Risk Comment:Per note documentation 06/06/2024 06/06/2024 10:40 AM EST CoV-Risk 08/31/2024 08/31/2024 09/11/2024 1:23 AM EST documented as of this encounter Care Teams Hand Drawer In Relationship Specialty Start Date End Date Ailin Araujo MD [address] [place] [address] PCP - General Family Medicine 05/13/17 documented as of this encounter Additional Source Comments The information contained in this document represents components of the legal health record. It is not the complete legal health record.[facility]
--- OUTSIDE RECORDS SUMMARY | 2025-04-26 14:32 | XMS_ITS | Encounter Summary ---
Author Organization [facility] Address [address] [facility] [address] [place] [address] Phone Care Team Providers Care Gaggerman Name Role Phone Ailin Araujo MD Primary Care Provider Encounter Details Date Type Department Care Team (Late st Contact Info) Description 04/19/2022 Procedure Pass [facility], Ct Scan - [address] [address] Social History Tobacco Use Types Packs/Day Years [...] PM EDT Trammell, Melanie A, RN * [place] Suicide Severity Rating Scale (Screener/Recent Self-Report) Question [...] Description 06/03/2025 11:00 AM EST Office Visit [facility] Neurology [address] [place] [address] Natalie Syed FNP 15 [facility], 2nd [place] [address] [email or web address] 12/18/2025 11:30 AM EDT Office Visit [facility] 22 [facility] 3rd Floor, [address] [place] [address] Angelic Cesar DNP 22 [facility], [address] [address] [email or web address] documented as of this encounter Visit Diagnoses Not on filedocumented in this encounter Additional Health Concerns Infection Onset Date Last Indicated Resolved Time CoV-Risk 07/20/2023 07/20/2023 07/31/2023 1:22 AM EST CoV-Risk Comment:Per note documentation 06/06/2024 06/06/2024 10:40 AM EST CoV-Risk 08/31/2024 08/31/2024 09/11/2024 1:23 AM EST documented as of this encounter Care Teams Gaggerman Relationship Specialty Start Date End Date Ailin Araujo MD [address] [place] [address] PCP - General Family Medicine 05/13/17 documented as of this encounter Additional Source Comments The information contained in this document represents components of the legal health record. It is not the complete legal health record.[facility]
--- OUTSIDE RECORDS SUMMARY | 2025-04-26 14:32 | XMS_ITS | Encounter Summary ---
Author Organization [facility] Address [address] [facility] [address] [place] [address] Phone Care Team Providers Care Bow Maker Name Role Phone Ailin Araujo MD Primary Care Provider Encounter Details Date Type Department Care Team (Late st Contact Info) Description 05/05/2022 Procedure Pass [facility], Ct Scan - [address] [address] Social History Tobacco Use Types Packs/Day Years [...] 9:06 AM EDT Ariadna Kimball, RN * [place] Suicide Severity Rating Scale (Screener/Recent Self-Report) Question [...] Description 06/03/2025 11:00 AM EST Office Visit [facility] Neurology [address] [place] [address] Natalie Syed, NATA 15 [facility], 2nd [place] [address] [email or web address] 12/18/2025 11:30 AM EDT Office Visit [facility] 22 [facility] 3rd Floor, [address] [place] [address] Angelic Cesar DNP 22 [facility], [facility] 301 [place] [address] [email or web address] documented as of this encounter Visit Diagnoses Not on filedocumented in this encounter Additional Health Concerns Infection Onset Date Last Indicated Resolved Time CoV-Risk 07/20/2023 07/20/2023 07/31/2023 1:22 AM EST CoV-Risk Comment:Per note documentation 06/06/2024 06/06/2024 10:40 AM EST CoV-Risk 08/31/2024 08/31/2024 09/11/2024 1:23 AM EST documented as of this encounter Care Teams Bow Maker Relationship Specialty Start Date End Date Ailin Araujo MD [address] [place] [phone] PCP - General Family Medicine 05/13/17 documented as of this encounter Additional Source Comments The information contained in this document represents components of the legal health record. It is not the complete legal health record.[facility]
--- OUTSIDE RECORDS SUMMARY | 2025-04-26 14:32 | XMS_ITS | Encounter Summary ---
Author Organization [facility] Address [address] [facility] [address] [place] [address] Phone Care Team Providers Care Long Chain Dyeing Machine Operator Name Role Phone Ailin Araujo MD Primary Care Provider Encounter Details Date Type Department Care Team (Late st Contact Info) Description 05/04/2022 Procedure Pass [facility], Ct Scan - [address] [address] Social History Tobacco Use Types Packs/Day Years [...] 9:06 AM EDT Ariadna Kimball, RN * [place] Suicide Severity Rating Scale (Screener/Recent Self-Report) Question [...] AM EST Office Visit [facility] Neurology [address] [place] [address] Natalie Syed, NATA 15 [facility], 2nd [place] [address] [email or web address] 12/18/2025 11:30 AM EDT Office Visit [facility] 22 [facility] 3rd Floor, [address] [place] [address] Angelic Cesar DNP 22 [facility], [facility] 301 [place] [address] [email or web address] documented as of this encounter Visit Diagnoses Not on filedocumented in this encounter Additional Health Concerns Infection Onset Date Last Indicated Resolved Time CoV-Risk 07/20/2023 07/20/2023 07/31/2023 1:22 AM EST CoV-Risk Comment:Per note documentation 06/06/2024 06/06/2024 10:40 AM EST CoV-Risk 08/31/2024 08/31/2024 09/11/2024 1:23 AM EST documented as of this encounter Care Teams Long Chain Dyeing Machine Operator Relationship Specialty Start Date End Date Ailin Araujo MD [address] [place] [address] PCP - General Family Medicine 05/13/17 documented as of this encounter Additional Source Comments The information contained in this document represents components of the legal health record. It is not the complete legal health record.[facility]
--- OUTSIDE RECORDS SUMMARY | 2025-04-26 14:33 | XMS_ITS | Encounter Summary ---
Author Organization [facility] Address [address] [employer] [facility] [address] [place] [address] Phone Care Team Providers Care Hydraulic Chair Assembler Name Role Phone Ailin Araujo MD Primary Care Provider Encounter Details Date Type Department Care Team (Late st Contact Info) Description 05/05/2022 Procedure Pass [facility], Ct Scan - [address] [address] Social History Tobacco Use Types Packs/Day Years [...] 9:06 AM EDT Ariadna Kimball, RN * [place] Suicide Severity Rating Scale (Screener/Recent Self-Report) Question [...] Description 06/03/2025 11:00 AM EST Office Visit [facility]rology [address] [place] [address] Natalie Syed, NATA 15 [facility], 2nd [place] [address] [email or web address] 12/18/2025 11:30 AM EDT Office Visit [facility] 22 [facility] 3rd Floor, [address] [place] [address] Angelic Cesar DNP 22 [facility], [facility] 301 [place] [address] [email or web address] documented as of this encounter Visit Diagnoses Not on filedocumented in this encounter Additional Health Concerns Infection Onset Date Last Indicated Resolved Time CoV-Risk 07/20/2023 07/20/2023 07/31/2023 1:22 AM EST CoV-Risk Comment:Per note documentation 06/06/2024 06/06/2024 10:40 AM EST CoV-Risk 08/31/2024 08/31/2024 09/11/2024 1:23 AM EST documented as of this encounter Care Teams Hydraulic Chair Assembler Relationship Specialty Start Date End Date Ailin Araujo MD [address] [place] [phone] PCP - General Family Medicine 05/13/17 documented as of this encounter Additional Source Comments The information contained in this document represents components of the legal health record. It is not the complete legal health record.[facility]
--- OUTSIDE RECORDS SUMMARY | 2025-04-26 14:33 | XMS_ITS | Encounter Summary ---
Author Organization [facility] Address [address] [place] [address] Phone Care Team Providers Care Entry Level Lab Technician Name Role Phone Ailin Araujo MD Primary Care Provider Encounter Details Date Type Department Care Team (Late st Contact Info) Description 01/20/2023 Procedure Pass [facility] [address] [place] [address] Social History Tobacco Use Types Packs/Day Years [...] Office Visit [facility] Neurology 22 [place] [address] Natalie Syed FNP 15 [facility], 2nd [place] [address] 12/18/2025 11:30 AM EDT Office Visit [facility] 22 [facility] 3rd Floor, [address] [place] [address] Angelic Cesar DNP 22 [facility], [place] [address] [place] [address] [email or web address] documented as of this encounter Visit Diagnoses Not on filedocumented in this encounter Additional Health Concerns Infection Onset Date Last Indicated Resolved Time CoV-Risk 07/20/2023 07/20/2023 07/31/2023 1:22 AM EST CoV-Risk Comment:Per note documentation 06/06/2024 06/06/2024 10:40 AM EST CoV-Risk 08/31/2024 08/31/2024 09/11/2024 1:23 AM EST documented as of this encounter Care Teams Entry Level Lab Technician Relationship Specialty Start Date End Date Ailin Araujo MD [address] [place] [address] PCP - General Family Medicine 05/13/17 documented as of this encounter Additional Source Comments The information contained in this document represents components of the legal health record. It is not the complete legal health record.[facility]
--- OUTSIDE RECORDS SUMMARY | 2025-04-26 14:33 | XMS_ITS | Encounter Summary ---
Author Organization [facility] Address [address] [email or web address] [facility] [address] [place] [address] Phone Care Team Providers Care Reservoir Caretaker Name Role Phone Ailin Araujo MD Primary Care Provider Encounter Details Date Type Department Care Team (Late st Contact Info) Description 05/05/2022 Procedure Pass [facility], Ct Scan - [address] [address] Social History Tobacco Use Types Packs/Day Years [...] 9:06 AM EDT Ariadna Kimball, RN * Str[place]hers Suicide Severity Rating Scale (Screener/Recent Self-Report) Question [...] Description 06/03/2025 11:00 AM EST Office Visit [facility]rology [address] [place] [address] Natalei Syed, NATA 15 [facility], 2nd [place] [address] [email or web address] 12/18/2025 11:30 AM EDT Office Visit [facility] 22 [facility] 3rd Floor, [address] [place] [address] Angelic Cesar DNP 22 [facility], [facility] 301 [place] [address] [email or web address] documented as of this encounter Visit Diagnoses Not on filedocumented in this encounter Additional Health Concerns Infection Onset Date Last Indicated Resolved Time CoV-Risk 07/20/2023 07/20/2023 07/31/2023 1:22 AM EST CoV-Risk Comment:Per note documentation 06/06/2024 06/06/2024 10:40 AM EST CoV-Risk 08/31/2024 08/31/2024 09/11/2024 1:23 AM EST documented as of this encounter Care Teams Reservoir Caretaker Relationship Specialty Start Date End Date Ailin Araujo MD [address] [place] [address] PCP - General Family Medicine 05/13/17 documented as of this encounter Additional Source Comments The information contained in this document represents components of the legal health record. It is not the complete legal health record.[facility]
--- OUTSIDE RECORDS SUMMARY | 2025-04-26 14:33 | XMS_ITS | Encounter Summary ---
Author Organization [facility] Address [address] [employer] [place] [facility] [address] [place] [address] Phone Care Team Providers Care Dowel Machine Operator Name Role Phone Ailin Araujo MD Primary Care Provider Encounter Details Date Type Department Care Team (Late st Contact Info) Description 05/05/2022 Procedure Pass [facility], Ct Scan - [address] [address] Social History Tobacco Use Types Packs/Day Years [...] 9:06 AM EDT Ariadna Kimball, RN * [place] Suicide Severity Rating Scale (Screener/Recent Self-Report) Question [...] Office Visit [facility] Neurology [address] [place] [address] Natalie Syed, NATA 15 [facility], 2nd [place] [address] [email or web address] 12/18/2025 11:30 AM EDT Office Visit [facility] 22 [facility] 3rd Floor, [address] [place] [address] Angelic Cesar DNP 22 [facility], [facility] 301 [place] [address] [email or web address] documented as of this encounter Visit Diagnoses Not on filedocumented in this encounter Additional Health Concerns Infection Onset Date Last Indicated Resolved Time CoV-Risk 07/20/2023 07/20/2023 07/31/2023 1:22 AM EST CoV-Risk Comment:Per note documentation 06/06/2024 06/06/2024 10:40 AM EST CoV-Risk 08/31/2024 08/31/2024 09/11/2024 1:23 AM EST documented as of this encounter Care Teams Dowel Machine Operator Relationship Specialty Start Date End Date Ailin Araujo MD [address] [place] [address] PCP - General Family Medicine 05/13/17 documented as of this encounter Additional Source Comments The information contained in this document represents components of the legal health record. It is not the complete legal health record.[facility]
--- OUTSIDE RECORDS SUMMARY | 2025-04-26 14:33 | XMS_ITS | Encounter Summary ---
Author Organization [facility] Address 399 [facility] [address] [place] [address] Phone Care Team Providers Care Mohel Name Role Phone Ailin Araujo MD Primary Care Provider Encounter Details Date Type Department Care Team (Late st Contact Info) Description 11/16/2022 Procedure Pass [facility], Ct Scan - [address] [address] Social History Tobacco Use Types Packs/Day Years [...] on file 11/04/2022 No 11/04/2022 No 11/04/2022 Comments Unknown Sex and Gender Information Value [...] Description 06/03/2025 11:00 AM EST Office Visit [facility] Neurology 22 [place] [address] Natalie Syed, FOOD MIXER 15 [facility], 2nd [place] [address] 12/18/2025 11:30 AM EDT Office Visit [facility] 22 [facility] 3rd Floor, [address] [place] [address] Angelic Cesar DNP 22 [facility], [facility] 301 [place] [address] documented as of this encounter Visit Diagnoses Not on filedocumented in this encounter Additional Health Concerns Infection Onset Date Last Indicated Resolved Time CoV-Risk 07/20/2023 07/20/2023 07/31/2023 1:22 AM EST CoV-Risk Comment:Per note documentation 06/06/2024 06/06/2024 10:40 AM EST CoV-Risk 08/31/2024 08/31/2024 09/11/2024 1:23 AM EST documented as of this encounter Care Teams Mohel Relationship Specialty Start Date End Date Ailin Araujo MD [address] [place] [address] PCP - General Family Medicine 05/13/17 documented as of this encounter Additional Source Comments The information contained in this document represents components of the legal health record. It is not the complete legal health record.[facility]
== END 2025-04-26 12:15 | disposition home or self-care (01) ==
LOC: HO.HKA 11:40
PROVIDERS: PCP Family Medicine; Visit Provider Internal Medicine Nephrology
DX: I95.1 Orthostatic hypotension (principal); N18.31 Chronic kidney disease, stage 3a
CPT/HCPCS: 99214

== ENCOUNTER → 2025-04-26 11:39 | Outpatient (BNVA) | payer MEDICARE, MEDICAID, SELFPAY | PROVIDERS: PCP Family Medicine; Visit Provider Internal Medicine Nephrology | DX: I95.1 Orthostatic hypotension (principal); N18.31 Chronic kidney disease, stage 3a | CPT/HCPCS: 99212 ==

== ENCOUNTER 2025-05-02 11:01 | Outpatient (REF) | payer MEDICARE, MEDICAID, SELFPAY ==
[2025-05-02 11:19] LABS: MANUAL DIFF FLAG NO
[2025-05-02 11:58] LABS: Hematocrit 40.8 % (37.0-47.0); Hemoglobin 13.2 g/dl (12.0-16.0); Imm Gran Abs Auto 0.01 X10*3/uL (0.00-0.03); Imm Gran Pct Auto 0.2 % (0.0-0.4); Lymphocytes Absolute Auto 1.7 X10*3/uL (1.2-4.9); Mean Corpuscular HGB Conc 32.4 g/dl (31.0-35.0); Mean Corpuscular Hemoglobin 31.0 pg (27.0-33.0); Mean Corpuscular Volume 95.8 fL (80.0-98.0); NRBC Abs Auto 0.000 X10*3/uL (0.0-0.012); NRBC Pct Auto 0.0 /100WBC (0.0-0.2); Platelet Count 185 X10*3/uL (160-400); Red Blood Count 4.26 X10*6/uL (4.20-5.50); White Blood Count 5.5 X10*3/uL (4.8-10.8)
[2025-05-02 12:34] LABS: Anion Gap 10 (12-20); Blood Urea Nitrogen 14 mg/dL (9-16); Calcium 8.6 mg/dL (8.4-10.2); Carbon Dioxide 21 mmol/L (22-29); Chloride 116 mmol/L (96-108); Estimated Glomerular Filt Rate 57; Potassium 3.7 mmol/L (3.3-5.1); Sodium 143 mmol/L (135-145)
== END 2025-05-02 11:02 | disposition home or self-care (01) ==
LOC: HO.LAB 11:01
PROVIDERS: Visit Provider Internal Medicine Nephrology
DX: I95.1 Orthostatic hypotension (principal); N18.31 Chronic kidney disease, stage 3a
CPT/HCPCS: 36415; 80051; 82310; 82565; 84520; 85025

== ENCOUNTER 2025-07-10 10:57 | Outpatient (AMB) | payer MEDICARE, MEDICAID, SELFPAY ==
--- OUTSIDE RECORDS SUMMARY | 2014-01-02 23:00 | XMS_ITS | Encounter Summary ---
Author Organization [facility] Address [address] [place] [address] Phone Care Team Providers Care Clinical Rehabilitation Specialist Name Role Phone Unavailable Primary Care Provider Unavailabl e Encounter Details Date Type Department Care Team (Late st Contact Info) Description 01/03/2014 Hospital Encounter [facility] General Imaging [address] [place] [address] Nancy Cardenas MD, MBBS [address] [phone] JUAN [email or web address] Social History Tobacco Use Types Packs/Day Years Used Date Smoking Tobacco: Some Days Cigarettes Smokeless Tobacco: Never Comments:UPDATE: per pt she quit over 1 yr ago Alcohol Use Standard Drinks/Week Comments Not Currently 0 (1 standard drink = 0.6 oz pur e alcohol) Home Health Assessment: Transportation Answer Date Recorded Lack of Transportation (Medical) No 07/29/2022 Lack of Transportation (Non-Medical) No 07/29/2022 Patient Unable or Declines to Respond No 07/29/2022 Education Answer Date Recorded Are you interested in more education? Not on vega e 11/04/2022 Are you concerned about learning? Not on file 11/04/2022 No 11/04/2022 No 11/04/2022 Food Answer Date Recorded Within the past 6 months we worried whether our food would run out before we got money to buy more. Unable to assess 025 Within the past 6 months the food we bought just didn't last and we didn't have enough money to get more. Unable to assess 11/21/2024 Residential Stability Answer Date Recor ded What is your housing situation today? Unable to assess 11/21/2024 How many times have you moved in the past 12 tue th? Unable to assess 11/21/2024 Paying for Meds Answer Date Recorded Do you have trouble paying for medicines? Unable to assess 11/21/2024 Paying Utility Bills Answer Date Record ed Do you have trouble paying y our heating or electricity bill? Unable to assess 11/21/2024 Transportation Answer Date Recorded Has the lack of transportati on kept you from medical appointments or from getting medications? Unable to assess 11/21/2024 Digital Access Answer Date Recorded No 11/21/2024 No 11/21/2024 Do you have reliable internet access at home? Un able to assess 11/21/2024 Do you have a device (e.g., phone, tablet, computer) with a working camera? Unable to assess 11/21/2024 Intimate Partner Violence Answer Date R ecorded Are you denied basic needs s uch as food, clothing, or medical care? Patient unable to respond 11/21/2024 In the past 12 months have y ou been in a relationship with a person who hurts, threatens, or tries to control you? Patient unable to respond 11/21/2024 Are you denied basic needs s uch as food, clothing, or medical care? Patient unable to respond 11/21/2024 In the past 12 months have y ou been in a relationship with a person who hurts, threatens, or tries to control you? Patient unable to respond 11/21/2024 Comments Unknown Sex and Gender Information Value Date Recorded Sex Assigned at Female 12/22/2020 4:54 PM EDT Legal Sex Female 9:49 AM EDT Gender Identity Female 03/04/2021 1:51 PM EDT Sexual Orientation Straight 10/05/2021 6: 22 PM EDT documented as of this encounter Plan of Treatment Upcoming Encounters Date Type Department Care Team (Late st Contact Info) Description 08/08/2025 1:30 PM EST Office Visit [facility] [address] [place] [address] [place] [address] Natalie Syed, [address] [address] [email or web address] Meaghan Houser, PT [address] [place] [address] 08/13/2025 11:15 AM EST Office Visit [facility] [address] [place] [address] [place] [address] Natalie Syed, [address] [address] [email or web address] Meaghan Houser, PT [address] [place] [address] 08/15/2025 1:30 PM EST Office Visit [facility] Physical Therapy [address] [place] [address] Natalie Syed, [address] [address] [email or web address] Meaghan Houser, PT [address] [place] [address] 08/20/2025 11:15 AM EST Office Visit [facility] [address] [place] [address] Natalie Syed, [address] [address] [email or web address] Meaghan Houser, PT [address] [place] [address] [email or web address] 08/22/2025 1:30 PM EST Office Visit [facility] [address] [place] [address] Natalie Syed, CNC GRINDER [address] [place] [address] Meaghan Houser, PT [address] [place] [address] [email or web address] 08/27/2025 11:15 AM EST Office Visit [facility] Physical Therapy [facility] [address] [place] [address] Natalie Syed, [address] [address] Meaghan Houser, PT [address] [place] [address] [email or web address] 08/29/2025 1:30 PM EST Office Visit [facility] Physical Therapy [facility] [address] [place] [address] Naatlie Syed, [address] [address] Meaghan Houser, PT [address] [place] [address] [email or web address] 09/03/2025 11:15 AM EST Office Visit [facility] Physical Therapy [facility] [address] [place] [address] Natalie Syed, [address] [address] Meaghan Houser, PT [address] [place] [address] 12/09/2025 12:30 PM EDT Office Visit [facility] [address] [place] [address] Natalie Syed, CNC GRINDER 15 [facility], 2nd [place] [address] 12/18/2025 11:30 AM EDT Office Visit [facility] [address] 3rd Floor, [address] [place] [address] Angelic Cesar, NEAL 22 [facility], [address] [place] [address] 01/17/2026 10:30 AM EDT Telemedicine [facility] Epilepsy Service [address] [place] [address], 8th Floor, [address] [place] [address] Nancy Cardenas MD, MAGDALENA [address] [place] [phone] JUAN [email or web address] documented as of this encounter Procedures Procedure Name Priority Date/Time Associated Diagnosis Comments CT HEAD OUTSIDE (NO INTERPRETATION) Routine 01/03/2014 12:00 AM EDT documented in this encounter Results * CT Head Outside (No Interpretation) (01/03/2014 12:00 AM EDT) Narrative [facility] - 01/13/2017 3:47 PM EDT This study is for PACS storage only and not for interpretation. us Nancy Cardenas MD, MAGDALENA IMG OUTSIDE IMAGING W/OUT INTERPRETATION Final Result [facility] documented in this encounter Visit Diagnoses Not on filedocumented in this encounter Additional Health Concerns Infection Onset Date Last Indicated Resolved Time CoV-Risk 07/20/2023 07/20/2023 07/31/2023 1:22 AM EST CoV-Risk Comment:Per note documentation 06/06/2024 06/06/2024 10:40 AM EST CoV-Risk 08/31/2024 08/31/2024 09/11/2024 1:23 AM EST documented as of this encounter Additional Source Comments The information contained in this document represents components of the legal health record. It is not the complete legal health record.[facility]
--- OUTSIDE RECORDS SUMMARY | 2014-01-05 23:00 | XMS_ITS | Encounter Summary ---
Author Organization [facility] Address [address] [place] [phone] Phone Care Team Providers Care Teacher [employer] Name Role Phone Unavailable Primary Care Provider Unavailabl e Encounter Details Date Type Department Care Team (Late st Contact Info) Description 01/06/2014 Hospital Encounter [facility] Imaging [address] [place] [address] Nancy Cardenas MD, MBBS [address] [phone] JUAN [email or web address] Social History Tobacco Use Types [...] Description 08/08/2025 1:30 PM EST Office Visit [facility] [address] [place] [address] [place] [address] Natalie Syed, [address] [address] Meaghan Houser, PT [address] [place] [address] 08/13/2025 11:15 AM EST Office Visit [facility] [address] [place] [address] [place] [address] Natalie Syed, [address] [address] Meaghan Houser, PT [address] [place] [address] 08/15/2025 1:30 PM EST Office Visit [facility] Physical Therapy [address] [place] [address] Natalie Syed, [address] [address] Meaghan Houser, PT [address] [place] [address] 08/20/2025 11:15 AM EST Office Visit [facility] Therapy Clinic [address] [place] [address] Natalie Syed, [address] [address] Meaghan Houser, PT [address] [place] [address] 08/22/2025 1:30 PM EST Office Visit [facility] Therapy [facility] [address] [place] [address] Natalie Syed, GENOMICS SCIENTIST [address] [place] [address] Meaghan Houser, PT [address] [place] [address] 08/27/2025 11:15 AM EST Office Visit [facility] Physical Therapy [facility] [address] [place] [address] Natalie Syed, [address] [address] Meaghan Houser, PT [address] [place] [address] 08/29/2025 1:30 PM EST Office Visit [facility] Physical Therapy [facility] [address] [place] [address] Natalie Syed, [address] [address] Meaghan Houser, PT [address] [place] [address] 09/03/2025 11:15 AM EST Office Visit [facility] Physical Therapy [facility] [address] [place] [address] Natalie Syed, [address] [address] Meaghan Houser, PT [address] [place] [address] 12/09/2025 12:30 PM EDT Office Visit [facility] Neurology Clinic [address] [place] [address] Natalie Syed, GENOMICS SCIENTIST 15 [facility], 2nd [place] [address] 12/18/2025 11:30 AM EDT Office Visit [facility] [address] 3rd Floor, [address] [place] [address] Angelic Cesar, NEAL 22 [facility], [address] [place] [address] 01/17/2026 10:30 AM EDT Telemedicine [facility] Epilepsy Service [address] [place] [address], 8th Floor, [address] [place] [address] Nancy Cardenas MD, MAGDALENA [address] [place] [phone] JUAN [email or web address] documented as of this encounter Procedures Procedure Name Priority Date/Time Associated Diagnosis Comments MRI BRAIN OUTSIDE (NO INTERPRETATION) Routine 01/06/2014 12:00 AM EDT documented in this encounter Results * MRI Brain Outside (No Interpretation) (01/06/2014 12:00 AM EDT) Narrative [facility] INTER[facility]AC[facility] - 01/13/2017 3:29 PM EDT This study is for PACS storage only and not for interpretation. us Nancy Cardenas MD, MAGDALENA IMG OUTSIDE IMAGING W/OUT INTERPRETATION Final Result [facility] INTER[facility]ACES documented in [...] It is not the complete legal health record.[facility]
--- OUTSIDE RECORDS SUMMARY | 2014-04-27 23:00 | XMS_ITS | Encounter Summary ---
Author Organization [facility] Address [address] [place] [address] Phone Care Team Providers Care Welt Butter Hand Name Role Phone Unavailable Primary Care Provider Unavailabl e Encounter Details Date Type Department Care Team (Late st Contact Info) Description 04/28/2014 Hospital Encounter [facility] General Imaging [address] [place] [address] Nancy Cardenas MD, MBBS [address] [phone] JUAN [email or web address] Social History Tobacco Use Types Packs/Day [...] Description 08/08/2025 1:30 PM EST Office Visit [facility] [address] [place] [address] [place] [address] Natalie Syed, [address] [address] [email or web address] Meaghan Houser, PT [address] [place] [address] 08/13/2025 11:15 AM EST Office Visit [facility] [address] [place] [address] [place] [address] Natalie Syed, [address] [address] [email or web address] Meaghan Houser, PT [address] [place] [address] 08/15/2025 1:30 PM EST Office Visit [facility] Physical Therapy [address] [place] [address] Natalie Syed, [address] [address] [email or web address] Meaghan Houser, PT [address] [place] [address] 08/20/2025 11:15 AM EST Office Visit [facility] [address] [place] [address] Natalie Syed, [address] [address] [email or web address] Meaghan Houser, PT [address] [place] [address] [email or web address] 08/22/2025 1:30 PM EST Office Visit [facility] [address] [place] [address] Natalie Syed, INVESTMENT SALES ASSISTANT [address] [place] [address] Meaghan Houser, PT [address] [place] [address] [email or web address] 08/27/2025 11:15 AM EST Office Visit [facility] Physical Therapy [facility] [address] [place] [address] Natalie Syed, [address] [address] Meaghan Houser, PT [address] [place] [address] [email or web address] 08/29/2025 1:30 PM EST Office Visit [facility] Physical Therapy [facility] [address] [place] [address] Natalie Syed, [address] [address] Meaghan Houser, PT [address] [place] [address] [email or web address] 09/03/2025 11:15 AM EST Office Visit [facility] Physical Therapy [facility] [address] [place] [address] Natalie Syed, [address] [address] Meaghan Houser, PT [address] [place] [address] 12/09/2025 12:30 PM EDT Office Visit [facility] [address] [place] [address] Natalie Syed, INVESTMENT SALES ASSISTANT 15 [facility], 2nd [place] [address] 12/18/2025 11:30 AM EDT Office Visit [facility] [address] 3rd Floor, [address] [place] [address] Angelic Cesar, NEAL 22 [facility], [address] [place] [address] 01/17/2026 10:30 AM EDT Telemedicine [facility] Epilepsy Service [address] [facility], 8th Floor, [address] [place] [address] Nancy Cardenas MD, MAGDALENA [address] [place] [phone] JUAN [email or web address] documented as of this encounter Procedures Procedure Name Priority Date/Time Associated Diagnosis Comments CT HEAD OUTSIDE (NO INTERPRETATION) Routine 04/28/2014 12:00 AM EDT documented in this encounter Results * CT Head Outside (No Interpretation) (04/28/2014 12:00 AM EDT) Narrative [facility] - 01/13/2017 3:47 PM EDT This study is for PACS storage only and not for interpretation. us Nancy Cardenas MD, MAGDALENA IMG OUTSIDE IMAGING W/OUT INTERPRETATION Final Result [facility] documented in this encounter Visit [...] It is not the complete legal health record.[facility]
--- OUTSIDE RECORDS SUMMARY | 2015-04-06 23:00 | XMS_ITS | Encounter Summary ---
Author Organization [facility] Address [address] [place] [address] Phone Care Team Providers Care Drafting Layout Man Name Role Phone Unavailable Primary Care Provider Unavailabl e Encounter Details Date Type Department Care Team (Late st Contact Info) Description 04/07/2015 Hospital Encounter [facility] General Imaging [address] [place] [address] Nancy Cardenas MD, MBBS [address] [phone] JUAN [email or web address] Social History Tobacco Use Types Packs/Day [...] Description 08/08/2025 1:30 PM EST Office Visit [facility] [address] [place] [address] [place] [address] Natalie Syed, [address] [address] Meaghan Houser, PT 8 [place] [address] 08/13/2025 11:15 AM EST Office Visit [facility] [address] [place] [address] [place] [address] Natalie Syed, [address] [address] Meaghan Houser, PT 8 [place] [address] 08/15/2025 1:30 PM EST Office Visit [facility] Physical Therapy [address] [place] [address] Natalie Syed, [address] [address] Meaghan Houser, PT 8 [place] [address] 08/20/2025 11:15 AM EST Office Visit [facility] [address] [place] [address] Natalie Syed, [address] [address] Meaghan Houser, PT 8 [place] [address] 08/22/2025 1:30 PM EST Office Visit [facility] [address] [place] [address] Natalie Syed, CUTTER HELPER [address] [place] [address] Meaghan Houser, PT 8 [place] [address] 08/27/2025 11:15 AM EST Office Visit [facility] Physical Therapy [facility] [address] [place] [address] Natalie Syed, [address] [address] Meaghan Houser, PT 8 [place] [address] 08/29/2025 1:30 PM EST Office Visit [facility] Physical Therapy [facility] [address] [place] [address] Natalie Syed, [address] [address] Meaghan Houser, PT 8 [place] [address] 09/03/2025 11:15 AM EST Office Visit [facility] Physical Therapy [facility] [address] [place] [address] Natalie Syed, [address] [address] Meaghan Houser, PT 8 [place] [address] 12/09/2025 12:30 PM EDT Office Visit [facility] [address] [place] [address] Natalie Syed, CUTTER HELPER [address] [facility], 2nd [place] [address] 12/18/2025 11:30 AM EDT Office Visit [facility] [address] 3rd Floor, [address] [place] [address] Angelic Cesar, NEAL [address] [facility], [address] [place] [address] 01/17/2026 10:30 AM EDT Telemedicine [facility] [address] [place] [address], 8th Floor, [address] [place] [address] Nancy Cardenas MD, MAGDALENA [address] [place] [phone] JUAN [email or web address] documented as of this encounter Procedures Procedure Name Priority Date/Time Associated Diagnosis Comments CT HEAD OUTSIDE (NO INTERPRETATION) Routine 04/07/2015 12:00 AM EDT documented in this encounter Results * CT Head Outside (No Interpretation) (04/07/2015 12:00 AM EDT) Narrative [facility] - 01/13/2017 3:46 PM EDT This study is for PACS storage only and not for interpretation. us Nancy Cardenas MD, MAGDALENA IMG OUTSIDE IMAGING W/OUT INTERPRETATION Final Result [facility] documented in this encounter Visit [...] It is not the complete legal health record.[facility]
--- OUTSIDE RECORDS SUMMARY | 2015-11-24 23:00 | XMS_ITS | Encounter Summary ---
Author Organization [facility] Address [address] [place] [address] Phone Care Team Providers Care Cashier Associate Name Role Phone Unavailable Primary Care Provider Unavailabl e Encounter Details Date Type Department Care Team (Late st Contact Info) Description 11/25/2015 Hospital Encounter [facility] General Imaging [address] [place] [address] Nancy Cardenas MD, MBBS [address] [phone] JUAN [email or web address] Social History Tobacco Use Types Packs/Day Years [...] Description 08/08/2025 1:30 PM EST Office Visit [facility] [address] [place] [address] [place] [address] Natalie Syed, [address] [address] [email or web address] Meaghan Houser, PT 8 [place] [address] 08/13/2025 11:15 AM EST Office Visit [facility] [address] [place] [address] [place] [address] Natalie Syed, [address] [address] [email or web address] Meaghan Houser, PT 8 [place] [address] 08/15/2025 1:30 PM EST Office Visit [facility] Physical Therapy [address] [place] [address] Natalie Syed, [address] [address] [email or web address] Meaghan Houser, PT 8 [place] [address] 08/20/2025 11:15 AM EST Office Visit [facility] [address] [place] [address] Natalie Syed, [address] [address] [email or web address] Meaghan Houser, PT 8 [place] [address] [email or web address] 08/22/2025 1:30 PM EST Office Visit [facility] Therapy [facility] [address] [place] [address] Natalie Syed, HULL DRAFTER [address] [place] [address] Meaghan Houser, PT 8 [place] [address] [email or web address] 08/27/2025 11:15 AM EST Office Visit [facility] Physical Therapy [facility] [address] [place] [address] Natalie Syed, [address] [address] Meaghan Houser, PT 8 [place] [address] [email or web address] 08/29/2025 1:30 PM EST Office Visit [facility] Physical Therapy [facility] [address] [place] [address] Natalie Syed, [address] [address] Meaghan Houser, PT 8 [place] [address] [email or web address] 09/03/2025 11:15 AM EST Office Visit [facility] Physical Therapy [facility] [address] [place] [address] Natalie Syed, [address] [address] Meaghan Houser, PT 8 [place] [address] 12/09/2025 12:30 PM EDT Office Visit [facility] [address] [place] [address] Natalie Syed, HULL DRAFTER 15 [facility], 2nd [place] [address] 12/18/2025 11:30 AM EDT Office Visit [facility] [address] 3rd Floor, [address] [place] [address] Angelic Cesar, NEAL 22 [facility], [address] [place] [address] 01/17/2026 10:30 AM EDT Telemedicine [facility] Epilepsy Service [address] [place] [address], 8th Floor, [address] [place] [address] Nancy Cardenas MD, MAGDALENA [address] [place] [phone] JUAN [email or web address] documented as of this encounter Procedures Procedure Name Priority Date/Time Associated Diagnosis Comments CT HEAD OUTSIDE (NO INTERPRETATION) Routine 11/25/2015 12:00 AM EDT documented in this encounter Results * CT Head Outside (No Interpretation) (11/25/2015 12:00 AM EDT) Narrative [facility]G INTERFAC[facility] - 01/13/2017 3:46 PM EDT This study is for PACS storage only and not for interpretation. us Nancy Cardenas MD, MAGDALENA IMG OUTSIDE IMAGING W/OUT INTERPRETATION Final Result [facility] documented in this encounter Visit [...] It is not the complete legal health record.[facility]
--- OUTSIDE RECORDS SUMMARY | 2016-01-01 23:00 | XMS_ITS | Encounter Summary ---
Author Organization [facility] Address [address] [place] [address] Phone Care Team Providers Care Hairmasters Manager Name Role Phone Unavailable Primary Care Provider Unavailabl e Encounter Details Date Type Department Care Team (Late st Contact Info) Description 01/02/2016 Hospital Encounter [facility] General Imaging [address] [place] [address] Nancy Cardenas MD, MBBS [address] [phone] JUAN [email or web address] Social History Tobacco Use Types [...] Description 08/08/2025 1:30 PM EST Office Visit [facility] Therapy Clinic [address] [place] [address] [place] [address] Natalie Syed, [address] [address] [email or web address] Meaghan Houser, PT 8 [place] [address] 08/13/2025 11:15 AM EST Office Visit [facility] Therapy Clinic [address] [place] [address] [place] [address] Natalie Syed, [address] [address] [email or web address] Meaghan Houser, PT 8 [place] [address] 08/15/2025 1:30 PM EST Office Visit [facility] Physical Therapy [address] [place] [address] Natalie Syed, [address] [address] [email or web address] Meaghan Houser, PT 8 [place] [address] 08/20/2025 11:15 AM EST Office Visit [facility] [address] [place] [address] Natalie Syed, [address] [address] [email or web address] Meaghan Houser, PT 8 [place] [address] [email or web address] 08/22/2025 1:30 PM EST Office Visit [facility] [address] [place] [address] Natalie Syed, FUR DRESSER [address] [place] [address] Meaghan Houser, PT 8 [place] [address] [email or web address] 08/27/2025 11:15 AM EST Office Visit [facility] Physical Therapy [facility] [address] [place] [address] Natalie Syed, [address] [address] Meaghan Houser, PT 8 [place] [address] [email or web address] 08/29/2025 1:30 PM EST Office Visit [facility] Physical Therapy [facility] [address] [place] [address] Natalie Syed, [address] [address] Meaghan Houser, PT 8 [place] [address] [email or web address] 09/03/2025 11:15 AM EST Office Visit [facility] Physical Therapy [facility] [address] [place] [address] Natalie Syed, [address] [address] Meaghan Houser, PT 8 [place] [address] 12/09/2025 12:30 PM EDT Office Visit [facility] Neurology Clinic [address] [place] [address] Natalie Syed, FUR DRESSER [facility], 2nd [place] [address] 12/18/2025 11:30 AM EDT Office Visit [facility] [address] 3rd Floor, [address] [place] [address] Angelic Cesar, NEAL [address] [facility], [address] [place] [address] 01/17/2026 10:30 AM EDT Telemedicine [facility] Epilepsy Service [address] [place] [address], 8th Floor, [address] [place] [address] Nancy Cardenas MD, MAGDALENA [address] [place] [phone] JUAN [email or web address] documented as of this encounter Procedures Procedure Name Priority Date/Time Associated Diagnosis Comments CT HEAD OUTSIDE (NO INTERPRETATION) Routine 01/02/2016 12:00 AM EDT documented in this encounter Results * CT Head Outside (No Interpretation) (01/02/2016 12:00 AM EDT) Narrative [facility] - 01/13/2017 3:46 PM EDT This study is for PACS storage only and not for interpretation. us Nancy Cardenas MD, MAGDALENA IMG OUTSIDE IMAGING W/OUT INTERPRETATION Final Result [facility] documented in this encounter Visit [...] is not the complete legal health record.[facility]
--- OUTSIDE RECORDS SUMMARY | 2016-02-23 23:00 | XMS_ITS | Encounter Summary ---
Author Organization [facility] Address [address] [place] [address] Phone Care Team Providers Care Manager [place] Name Role Phone Unavailable Primary Care Provider Unavailabl e Encounter Details Date Type Department Care Team (Late st Contact Info) Description 02/24/2016 Hospital Encounter [facility] General Imaging [address] [place] [address] Nancy Cardenas MD, MBBS [address] [phone] JUAN [email or web address] Social History Tobacco Use Types Packs/Day [...] Description 08/08/2025 1:30 PM EST Office Visit [facility] Physical Therapy Clinic [address] [place] [address] [place] [address] Natalie Syed, [address] [address] [email or web address] Meaghan Houser, PT 8 [place] [address] 08/13/2025 11:15 AM EST Office Visit [facility] Physical Therapy Clinic [address] [place] [address] [place] [address] Natalie Syed, [address] [address] [email or web address] Meaghan Houser, PT 8 [place] [address] 08/15/2025 1:30 PM EST Office Visit [facility] Physical Therapy [address] [place] [address] Natalie Syed, [address] [address] [email or web address] Meaghan Houser, PT 8 [place] [address] 08/20/2025 11:15 AM EST Office Visit [facility] Physical Therapy Clinic [address] [place] [address] Natalie Syed, [address] [address] [email or web address] Meaghan Houser, PT 8 [place] [address] [email or web address] 08/22/2025 1:30 PM EST Office Visit [facility] Physical Therapy Clinic [address] [place] [address] Natalie Syed, HAM MARKER [address] [place] [address] Meaghan Houser, PT 8 [place] [address] [email or web address] 08/27/2025 11:15 AM EST Office Visit [facility] Physical Therapy [facility] [address] [place] [address] Natalie Syed, [address] [address] Meaghan Houser, PT 8 [place] [address] [email or web address] 08/29/2025 1:30 PM EST Office Visit [facility] Physical Therapy [facility] [address] [place] [address] Natalie Syed, [address] [address] Meaghan Houser, PT 8 [place] [address] [email or web address] 09/03/2025 11:15 AM EST Office Visit [facility] Physical Therapy [facility] [address] [place] [address] Natalie Syed, [address] [address] Meaghan Houser, PT 8 [place] [address] 12/09/2025 12:30 PM EDT Office Visit [facility] Neurology Clinic [address] [place] [address] Natalie Syed, HAM MARKER 15 [facility], 2nd [place] [address] 12/18/2025 11:30 AM EDT Office Visit [facility] [address] 3rd Floor, [address] [place] [address] Angelic Cesar, NEAL 22 [facility], [address] [place] [address] 01/17/2026 10:30 AM EDT Telemedicine [facility] Epilepsy Service [address] [place] [address], 8th Floor, [address] [place] [address] Nancy Cardenas MD, MAGDALENA [address] [place] [phone] JUAN [email or web address] documented as of this encounter Procedures Procedure Name Priority Date/Time Associated Diagnosis Comments CT HEAD OUTSIDE (NO INTERPRETATION) Routine 02/24/2016 12:00 AM EDT documented in this encounter Results * CT Head Outside (No Interpretation) (02/24/2016 12:00 AM EDT) Narrative [facility] IMG INTERFACES - 01/13/2017 3:46 PM EDT This study is for PACS storage only and not for interpretation. us Nancy Cardenas MD, MAGDALENA IMG OUTSIDE IMAGING W/OUT INTERPRETATION Final Result [facility] IMG INTERFACES documented in [...] It is not the complete legal health record.[facility]
--- OUTSIDE RECORDS SUMMARY | 2016-03-25 23:00 | XMS_ITS | Encounter Summary ---
Author Organization [facility] Address [address] [place] [address] Phone Care Team Providers Care Dredge Engineer Name Role Phone Unavailable Primary Care Provider Unavailabl e Encounter Details Date Type Department Care Team (Late st Contact Info) Description 03/26/2016 Hospital Encounter [facility] General Imaging [address] [place] [address] Nancy Cardenas MD, MBBS [address] [phone] JUAN [email or web address] [email or web address] Social History Tobacco Use Types Packs/Day [...] Description 08/08/2025 1:30 PM EST Office Visit [facility] [address] [place] [address] [place] [address] Natalie Syed, [address] [address] [email or web address] Meaghan Houser, PT 8 [place] [address] 08/13/2025 11:15 AM EST Office Visit [facility] [address] [place] [address] [place] [address] Natalie Syed, [address] [address] [email or web address] Meaghan Houser, PT 8 [place] [address] 08/15/2025 1:30 PM EST Office Visit [facility] Physical Therapy [address] [place] [address] Natalie Syed, [address] [address] [email or web address] Meaghan Houser, PT 8 [place] [address] 08/20/2025 11:15 AM EST Office Visit [facility] [address] [place] [address] Natalie Syed, [address] [address] [email or web address] Meaghan Houser, PT 8 [place] [address] [email or web address] 08/22/2025 1:30 PM EST Office Visit [facility] Therapy [facility] [address] [place] [address] Natalie Syed, RAILWAY TRACTION LINE WORKER [address] [place] [address] Meaghan Houser, PT 8 [place] [address] [email or web address] 08/27/2025 11:15 AM EST Office Visit [facility] Physical Therapy [facility] [address] [place] [address] Natalie Syed, [address] [address] Meaghan Houser, PT 8 [place] [address] [email or web address] 08/29/2025 1:30 PM EST Office Visit [facility] Physical Therapy [facility] [address] [place] [address] Natalie Syed, [address] [address] Meaghan Houser, PT 8 [place] [address] [email or web address] 09/03/2025 11:15 AM EST Office Visit [facility] Physical Therapy [facility] [address] [place] [address] Natalie Syed, [address] [address] Meaghan Houser, PT 8 [place] [address] 12/09/2025 12:30 PM EDT Office Visit [facility] Neurology Clinic [address] [place] [address] Natalie Syed, RAILWAY TRACTION LINE WORKER 15 [facility], 2nd [place] [address] 12/18/2025 11:30 AM EDT Office Visit [facility] [address] 3rd Floor, [address] [place] [address] Angelic Cesar, NEAL 22 [facility], [address] [place] [address] 01/17/2026 10:30 AM EDT Telemedicine [facility] Epilepsy Service [address] [place] [address], 8th Floor, [address] [place] [address] Nancy Cardenas MD, MAGDALENA [address] [place] [phone] JUAN [email or web address] documented as of this encounter Procedures Procedure Name Priority Date/Time Associated Diagnosis Comments CT HEAD OUTSIDE (NO INTERPRETATION) Routine 03/26/2016 12:00 AM EDT documented in this encounter Results * CT Head Outside (No Interpretation) (03/26/2016 12:00 AM EDT) Narrative [facility] [place] - 01/13/2017 3:45 PM EDT This study is for PACS storage only and not for interpretation. us Nancy Cardenas MD, MAGDAL[place] IMG OUTSIDE IMAGING W/OUT INTERPRETATION Final Result [facility] [place]G INTERF[place] documented in this encounter Visit [...] is not the complete legal health record.[facility]
--- OUTSIDE RECORDS SUMMARY | 2016-03-26 23:15 | XMS_ITS | Encounter Summary ---
Author Organization [facility] General [facility] Address [address] [place] [address] Phone Care Team Providers Care Quarry Plant Crusher Operator Name Role Phone Unavailable Primary Care Provider Unavailabl e Encounter Details Date Type Department Care Team (Late st Contact Info) Description 03/27/2016 12:15 AM EDT Hospital Encounter [facility] General Imaging [address] [place] [address] Nancy Cardenas MD, MBBS [address] [phone] JUAN DAVID@[email or web address] Social History Tobacco Use Types Packs/Day Years [...] you moved in the past 12 tue ths? Unable to assess 11/21/2024 Paying for Meds [...] Description 08/08/2025 1:30 PM EST Office Visit [facility] Therapy Clinic [address] [place] [address] [place] [address] Natalie Syed, EXECUTIVE ASSOCIATE [address] [place] [address] [email or web address] Meaghan Houser, PT 8 [place] [address] [email or web address] 08/13/2025 11:15 AM EST Office Visit [facility] Physical Therapy [address] [place] [address] Natalie Syed, [address] [address] [email or web address] Meaghan Houser, PT 8 [place] [address] [email or web address] 08/15/2025 1:30 PM EST Office Visit [facility] Physical Therapy [address] [place] [address] Natalie Syed, [address] [address] [email or web address] Meaghan Houser, PT 8 [place] [address] [email or web address] 08/20/2025 11:15 AM EST Office Visit [facility] Physical Therapy Clinic [address] [place] [address] Natalie Syed, [address] [address] [email or web address] Meaghan Houser, PT 8 [place] [address] [email or web address] 08/22/2025 1:30 PM EST Office Visit [facility] Physical Therapy Clinic [address] [place] [address] Natalie Syed, EXECUTIVE ASSOCIATE [address] [address] Meaghan Houser, PT 8 [place] [address] [email or web address] 08/27/2025 11:15 AM EST Office Visit [facility] Physical Therapy Clinic [address] [place] [address] [place] [address] Natalie Syed, EXECUTIVE ASSOCIATE [address] [place] [address] [email or web address] Meaghan Houser, PT 8 [place] [address] [email or web address] 08/29/2025 1:30 PM EST Office Visit [facility] Physical Therapy [address] [place] [address] Natalie Syed, EXECUTIVE ASSOCIATE [address] [address] [email or web address] Meaghan Houser, PT 8 [place] [address] [email or web address] 09/03/2025 11:15 AM EST Office Visit [facility] Physical Therapy Clinic [address] [place] [address] Natalie Syed, EXECUTIVE ASSOCIATE [address] [address] Meaghan Houser, PT 8 [place] [address] 12/09/2025 12:30 PM EDT Office Visit [facility] [address] [place] [address] Natalie Syed, EXECUTIVE ASSOCIATE 15 [facility], 2nd [place] [address] 12/18/2025 11:30 AM EDT Office Visit [facility] [address] 3rd Floor, [address] [place] [address] Angelic Cesar DNP 22 [facility], [address] [place] [address] 01/17/2026 10:30 AM EDT Telemedicine [facility] Epilepsy Service 55 [facility], 8th Floor, [address] [place] [address] Nancy Cardenas MD, MAGDALENA [address] [place] [phone] JUAN [email or web address] documented as of this encounter Procedures Procedure Name Priority Date/Time Associated Diagnosis Comments MRI BRAIN OUTSIDE (NO INTERPRETATION) Routine 03/27/2016 12:15 AM EDT documented in this encounter Results * MRI Brain Outside (No Interpretation) (03/27/2016 12:15 AM EDT) Narrative [facility] [place]G INTERF[place]ES - 01/13/2017 3:29 PM EDT This study is for PACS storage only and not for interpretation. us Nancy Cadrenas MD, MAGDALENA IMG OUTSIDE IMAGING W/OUT INTERPRETATION Final Result [facility] [place]G INTERFACES documented [...]
--- OUTSIDE RECORDS SUMMARY | 2020-11-26 12:00 | XMS_ITS | Encounter Summary ---
Author Organization [facility] Address [address] [place] [address] Phone Care Team Providers Care Payroll Associate Name Role Phone Ailin Araujo MD Primary Care Provider Encounter Details Date Type Department Care Team (Late st Contact Info) Description 11/26/2020 1:00 PM EDT Hospital Encounter [facility] Department of Neurology [address] [facility], [address] [place] [address] Nancy Cardenas MD, MBBS [address] [phone] JUAN [email or web address] Social History Tobacco Use Types Packs/Day [...] PM EDT documented as of this encounter Progress Notes * Stanley Luevano MD, PhD - 11/29/2020 11:11 AM EDT Images from the original note were not included. Please be advised: This patient is enrolled in a research study: the Study to Assess & Monitor Brain Activity ([facility], PI: Chloé) As part of the study, a small EEG device was placed on top of their head, which can be documented in the LDA Avatar while enrolled. *If the device falls off or is removed for any reason, please put the device in a plastic bag with the date and time it fell off, and place the bagged device in the [facility] collection bin (located in the dirty supply room). Please Remove the device for: Any type of Head imaging (e.g. Head CT) Any type of MRI (e.g. Spine MRI) Going to a sterile suite (e.g. OR / IR) Shower WITHOUT a shower cap Discretion of team (e.g. emergency) The device Is Okay to stay on for: Other imaging (e.g. Chest CT, Abdominal Ultrasound) Procedure in a non-sterile unit (e.g. hemodialysis, infusion) Shower WITH a shower cap Device Removal: The device is secured with tape and can be removed with the provided [employer] Remover Wipes (also stocked in the clean supply room, often near stoma supplies). Wipe the edges of the tape and hair todissolve the adhesive and gently free the device. For any urgent questions about the study or device, please page Dr. Luevano via pager [phone]. For any non-urgent questions, please email documented in this encounter Consult Notes * Derek Mei MD - 11/26/2020 1:00 PM EDT EPILEPSY MONITORING UNIT ADMISSION NOTE SERVICE DATE: 11/26/2020 d Patient Information: Liana Lamagdelaine [id number] 55 y.o.female HPI: Liana Krishnamurthy is a 55 y.o. right handed female with history of migraines, depression, anxiety, uterine ca, breast ca s/p radiation/chemotherapy, CKD III and prior events concerning for seizures presents for spell characterization and possible phase I surgical evaluation. Age of onset : 2013 Semiology : 1. Confusion and slurred speech followed by loss of consciousness and probably generalized stiffening. 2. LOC --> generalized convulsions with urinary incontinence Post ictal confusion that can last up to 24-48 hours. In the past 5 months total of 9 episodes. Usually starts by feeling disoriented and progressing to GTC. Per her recall she got intubated twice in the past (2016/2018) for seizures. Epilpesy risk factros : Concussion at age 3-4 (hit head to corner of a table and lost consciousness). Current AED : Keppra 1250mg BID Prior AEDs: Trileptal VPA (tremors / imbalance) Dilantin lamictal zonisamide (oral blisters) Gabapentin (lower ext edema) Prior h/o (per note) She first started having spells concerning for possible seizures in 2013. The semiology is characterized by confusion and slurred speech followed by loss of consciousness. Per her son, she passes outand has generalized stiffening. Her mother has also witnesses some of the events, and reports they are characterized by flailing and thrashing movements of her arms. She frequently has associated episodes of urinary incontinence and on occasion has bitten her tongue. She has post ictal confusion that can last up to 24-48 hours. After the first event, she was taken to an OSH and was intubated and admitted to an ICU. She has had video EEGs, and EMU admission at [facility] during which her EEG was normal. She had several headaches episodes with no EEG correlate, however did not have any of her typical symptoms. At the time shewas started on Zonisamide. She was [place] [facility] [place] for characterization of spells. No typical spells captured. EEG showed left temporal spikes. She was taken off Zonisamide as it had resulted in oral blisters and discharged on gabapentin. Unfortunately after discharge she had at least 2 episodes of LOC and generalized convulsions witnessed by her son (one with incontinence). Her Gabapentin was increased and she wasalso started on VPA. However she developed lower extremity edema, and Gabapentin was tapered off. She was readmitted to the EMU in 07/2018 again for spell characterization. During this time no spells were captured. She was taken off the VPA has it was causing tremors,imbalance, bizzare behaviour and falls. On discharge she was started on keppra 500 BID. ?Past Medical History: Uterine and breast cancer s/p bilateraly lumpectomy currently in remission, on tamoxifen, received radiation and chemotherapy Stage three chronic kidney Gastrip bypass- 2000 DM - insuln dependent - resolved was in the setting of the bypass Depression / PTSD Tardive dyskinesaia - resolved Migraines Pertinent investigations: EMU Jul 2018 : Abnormal EMU EEG due to rare diffuse theta slowing of the background. No seizures orepileptiform discharges were seen. No spells were captured. EMU November 2017 : This is an abnormal videoEEG due to: 1. Intermittent generalized, semi-rhythmic delta>theta slowing occasionally with admixed sharperwaves mainly in the fronto-central head regions (Fz/F3/F4/Cz/C3/C4) which were not sufficient for diagnosis of epileptiform discharges. Mostly patient was drowsy, asleep, or confused during these runs. It probably represents sleep architecture. 2. 5 events were captured (please see details below). 2/5 events had the EEG pattern mentioned above. The 3/5 other events had no electrographic correlate. 3. Rare, left temporal epileptiform discharges 4. Occasional, very brief (1-2 second long) periods of diffuse voltage attenuations during sleep MRI Brain (3T): October 2020 1. No potentially epileptogenic structural abnormality identified. 2. Nonspecific indistinct signal abnormality within the central chacho; this may be technical in etiology given high-resolution SPACE FLAIR sequence, or may reflect microangiopathic changes given this patient's demographics. ROS Negative except noted in HPI Exam General : NAD Intact naming/ repetition EPOMI, VF, Face symmteric, Tongue midline 5/5 strength in all extremities Intact light touch Intact FNF Normal gait Impression/Recommendations Impression: 55 y.o. right handed female with history of depression, anxiety, uterine ca, breast ca s/p radiation/chemotherapy, CKD III and prior events concerning for seizures presents for spell characterization and possible phase I surgical evaluation. Recommendations: Antiseizure medications: - Home medication regimen: Keppra 1250mg BID -Tapering Plan: 11/26 : Lev 1250/1250 11/27 : Lev 1000/1000 For EMU pts if sz>5 min or cluster of seizures (>4 consecutive sz in 24 h, or multiple seizures without return to baseline in-between), please page the epilepsy EMU fellow ([phone]) Tuesday to Tuesday and give Lorazepam 2 mg x1. Over the weekend[place] [phone]. For technical issues related [place] [phone]. The above plan was discussed with the attending epileptologist, . Derek Mei MD, Epilepsy Fellow, PGY-5 EMU Consult Pager # [phone] Cosigned by Delisa Burton MD, MPH at 12/09/2020 4:11 PM EDT documented in this encounter Plan of Treatment Upcoming Encounters Date Type Department Care Team (Late st Contact Info) Description 08/08/2025 1:30 PM EST Office Visit [facility] [address] [place] [address] Natalie Syed FNP 15 [facility], 2nd [place] [address] Meaghan Houser, PT 8 [place] [address] [email or web address] 08/13/2025 11:15 AM EST Office Visit [facility] [address] [place] [id number] Natalie Syed, GASOLINE TESTER [address] [address] [email or web address] Meaghan Huoser, PT 8 [place] [address] [email or web address] 08/15/2025 1:30 PM EST Office Visit [facility] [address] [place] [address] [place] [address] Natalie Syed, [address] [address] Meaghan Houser, PT 8 [place] [address] [email or web address] 08/20/2025 11:15 AM EST Office Visit [facility] [address] [place] [address] Natalie Syed, GASOLINE TESTER [address] [place] [address] Meaghan Houser, PT 8 [place] [address] [email or web address] 08/22/2025 1:30 PM EST Office Visit [facility] [address] [place] [address] [place] [address] Natalie Syed, GASOLINE TESTER [address] [address] Meaghan Houser, PT 8 [place] [address] [email or web address] 08/27/2025 11:15 AM EST Office Visit [facility] 8 [place] [address] Natalie Syed, GASOLINE TESTER [address] [address] Meaghan Houser, PT 8 [place] [address] [email or web address] 08/29/2025 1:30 PM EST Office Visit [facility] 8 [place] [address] Natalie Syed, GASOLINE TESTER [address] [address] Meaghan Houser, PT 8 [place] [address] [email or web address] 09/03/2025 11:15 AM EST Office Visit [facility] [address] [place] [address] Natalie Syed, NATA [address] [address] Meaghan Houser, PT 8 [place] [address] [email or web address] 12/09/2025 12:30 PM EDT Office Visit [facility] [address] [place] [address] Natalie Syed, GASOLINE TESTER [address] [address] 12/18/2025 11:30 AM EDT Office Visit [facility] [address] [facility] 3rd Floor, [address] [place] [address] Angelic Cesar NEAL 22 [facility], [address] [place] [address] 01/17/2026 10:30 AM EDT Telemedicine [facility] [address] [place] [address], 8th Floor, [address] [place] [address] Nancy Cardenas MD, MBBS [address] [place], [place] [address] [place] [phone] JUAN [email or web address] documented as of this encounter Procedures Procedure Name Priority Date/Time Associated Diagnosis Comments EPILEPSY MONITORING UNIT Routine 12/01/2020 8:30 AM EDT Convulsions, unspecified convulsion type documented in this encounter Results * EMU (12/01/2020 8:30 AM EDT) Anatomical Region Laterality Modality EEG Narrative 12/10/2020 11:01 AM EDT This is part I findings of the EMU admission: IMPRESSION: Abnormal EEG in awake,drowsy and asleep state due to: Rare left temporal epileptiform discharges. One event of anxiety was captured with no EEG correlate. No seizures. CLINICAL INDICATION: We conducted 5 days of EEG/CCTV monitoring on this 55 y.o. right handed female with history of migraines, depression, anxiety, uterine ca, breast ca s/p radiation/chemotherapy, CKD III and prior events concerning for seizures presents for spell characterization and possible phase I surgical evaluation. The goal of monitoring was to determine the nature of these spells and if epileptic, locate the focus (foci) of activity. METHOD: We performed continuous EEG/CCTV monitoring from 11/26/20 until 12/01/20. Standard international 10-20 system electrode placement was used including bilateral anterior temporal electrodes. Standard referential and bipolar montages were used for EEG review, as well as specifically reformatted arrays when necessary. A push-button was available for the patient/patient's family and/or staff to flag the occurrence of subjective or objective behavioral abnormalities. Continuous computerized spike and seizure detection was performed throughout the recording period. In addition, random samples of background recording from throughout the monitoring session were manually reviewed. Behavior was monitored by continuous video recordings of patient activities and by maintenance of a log of activities by both the patient/patient's family and the nursing staff. EEG was reviewed on a daily basis and interim reports were generated as required. EKG samples were reviewed daily. ANTIEPILEPTIC MEDICATIONS TITRATION SCHEDULE: - Home medication regimen: Keppra 1250mg BID -Tapering Plan: 11/26 : Lev 1250/1250 11/27 : Lev 1000/750 11/28 : Lev 750/500 11/29 : Lev OFF 11/30 : Lev OFF 12/01 : Lev OFF BACKGROUND: The awake resting background is continuous, symmetric, well organized, and characterized by a 30-70 V, 8 Hz posterior dominant rhythm, which attenuates with eye opening. Drowsiness is characterized by slow roving eye movements, generalized bursts of slowing, and vertex waves. There were POSTS (positivie occipital sharp transients of sleep) noted too. Stage II sleep is characterized by K complexes and sleep spindles. INTERICTAL EPILEPTIFORM ABNORMALITIES: Rare ~80uV left temporal (T3 maximal with field to F7/T5) sharp discharges noted. (e.g 20:54:45 11/27/20 , 02:52:16 11/27/20) PUSH BUTTON EVENTS/SEIZURES: 12/01/20 (01:28:09) : Push button as the patient is fidgety, anxious, tearful at times and overall stressful. There was muscle artifact over the temporal chains during the event but when visible there were no obvious abnormalities in the background. There was even a PDR visible during the event. Overall there was no obvious ictal EEG correlate. * * ECG: HR 70-90s. No dysrhythmia * * * * Derek Mei MD, 11/29/20 [facility] Epilepsy Fellow, PGY-5 I (Delisa Esparza) have reviewed this EEG recording with the fellow and edited this final report. Start Date: 11/26/2020 Start Time: 5:18 PM End Date: 12/01/2020 End Time: 8:30 AM * * us Nancy Cardenas MD, MBBS NEUROLOGY ORDERABLES Inna l Result documented in this encounter Visit Diagnoses Diagnosis Convulsions, unspecified convulsion type documented in this encounter Additional Health Concerns Infection Onset Date Last Indicated Resolved Time CoV-Risk 07/20/2023 07/20/2023 07/31/2023 1:22 AM EST CoV-Risk Comment:Per note documentation 06/06/2024 06/06/2024 10:40 AM EST CoV-Risk 08/31/2024 08/31/2024 09/11/2024 1:23 AM EST documented as of this encounter Care Teams Payroll Associate Relationship Specialty Start Date End Date Ailin Araujo MD [address] [place] [id number] PCP - General Family Medicine 05/13/17 documented as of this encounter Additional Source Comments The information contained in this document represents components of the legal health record. It is not the complete legal health record.[facility]
--- OUTSIDE RECORDS SUMMARY | 2022-09-23 13:35 | XMS_ITS | Encounter Summary ---
Author Organization [facility] Address [address] [place] [address] Phone Care Team Providers Care Director Of Market Intelligence Name Role Phone Ailin Araujo MD Primary Care Provider Encounter Details Date Type Department Care Team (Late st Contact Info) Description 09/23/2022 2:35 PM EDT Hospital Encounter [facility] Department of Neurology [address] [place] [address], [address] [place] [address] Nancy Cardenas MD, MBBS [address] [place] [phone] JUAN [email or web address] Social History Tobacco Use Types Packs/Day [...] Description 08/08/2025 1:30 PM EST Office Visit [facility] [address] [place] [address] [place] [address] Natalie Syed, NATA [address] [address] [email or web address] Meaghan Houser, PT 8 [place] [address] 08/13/2025 11:15 AM EST Office Visit [facility] [address] [place] [address] [place] [address] Natalie Syed FNP [address] [address] [email or web address] Meaghan Houser, PT 8 [place] [address] 08/15/2025 1:30 PM EST Office Visit [facility] Physical Therapy [address] [place] [address] Natalie Syed, NATA [address] [address] [email or web address] Meaghan Houser, PT 8 [place] [address] [email or web address] 08/20/2025 11:15 AM EST Office Visit [facility] [address] [place] [address] [place] [address] Natalie Syed FNP [address] [address] Meaghan Houser, PT 8 [place] [address] [email or web address] 08/22/2025 1:30 PM EST Office Visit [facility] Therapy Clinic 8 [place] [address] Natalie Syed, [address] [address] Meaghan Houser, PT 8 [place] [address] [email or web address] 08/27/2025 11:15 AM EST Office Visit [facility] Physical Therapy [address] [address] Natalie Syed, [address] [address] Meaghan Houser, PT 8 [place] [address] [email or web address] 08/29/2025 1:30 PM EST Office Visit [facility] Physical Therapy [facility] [address] [place] [address] Natalie Syed, [address] [address] Meaghan Houser, PT 8 [place] [address] [email or web address] 09/03/2025 11:15 AM EST Office Visit [facility] Physical Therapy [address] [address] Natalie Syed, [address] [address] Meaghan Houser, PT 8 [place] [address] 12/09/2025 12:30 PM EDT Office Visit [facility] [address] [place] [address] Natalie Syed, THIOKOL OPERATOR [facility] 2[facility] [place] [address] [email or web address] 12/18/2025 11:30 AM EDT Office Visit [facility] [address] Floor, [address] [place] [address] Angelic Cesar DNP [address] [facility], [address] [place] [address] 01/17/2026 10:30 AM EDT Telemedicine [facility] Ep[facility]psy [facility] [address] [place] [address], 8th Floor, [address] [place] [address] Nancy Cardenas MD, MBBS [address] [place] [phone] JUAN [email or web address] documented as of this encounter Procedures Procedure Name Priority Date/Time Associated Diagnosis Comments OUTSIDE EEG (WITH INTERPRETATION) Routine 08/10/2022 11:36 AM EST Convulsions, unspecified convulsion type documented in this encounter Results * land inspector Use Only-Outside EEG (with Interpretation) (08/10/2022 11:36 AM EST) Anatomical Region Laterality Modality EEG Impressions 09/26/2022 9:31 AM EDT 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 None of the patient's typical events are reported during the course of this study. Signature: Physician Name and Credentials: Rosalinda Pickering MD, PHD Date: 09/06/2022 Narrative 09/26/2022 9:31 AM EDT Images from the original result were not included. LONG-TERM EEG RECORDING REPORT PATIENT NAME: Liana Krishnamurthy DATE OF : 1965 ORDERING PROVIDER: Nancy Cardenas MD DX CODE(s): R56.9 EXAM DURATION: 89 Hours CLINICAL HISTORY: 57 year old female with history of Diabetes, CKD Stage 3, depression, anxiety, HTN, cervical cancer, PTSD, multiple concussions, and episodes since 2013 concerning for possible seizures. Events occur weekly, and are described as consisting of shaking, slurred speech, falling, loss of time, confusion, memory response and delay/unresponsiveness. Events last 60 seconds, no known triggers. MEDICATION(s): levetiracetam. Other medications include Imitrex, Flexeril, addreall, Flovent, albuterol, lsaic, nolvadex, incruse, ellipta, benztropine, bumetanide, citalopram. LONG-TERM EEG/VEEG RECORDING SET-UP and TAKE-DOWN TECHNICAL SUMMARY: Twenty-five (25) disposable electrodes were applied according to the standard 10-20 international measurement and placement protocol in person by an diet consultant for the purposes of recording long-term video EEG: (19) cephalic, (2) T1/T2 sub-temporal, (1) ground, (1) system reference, and (2) ECG. Data was recorded on a 24-channel [employer] EEG recording device with a sampling rate of 200 samples per second/per channel, at impedance levels less than 10 K Ohms. Once the exam was completed, the recording was halted, electrodes carefully removed, and data transferred. INTERMITTENT MONITORING with VIDEO TECHNICAL SUMMARY Long-Term EEG with Video was monitored intermittently by a qualified eeg technologist for the entirety of the recording; quality check-ins were performed at a minimum of every two hours, checking and documenting real-time data to assure the integrity and quality of the recording (e.g., electrode integrity and impedance), and identify the need for maintenance. For intermittent monitoring, an diet consultant monitored no more than 12 patients concurrently. Long-Term EEG Interpretation: The best waking background is symmetric and continuous, with good organization, and a reactive, 30-50 uV, 10-11 Hz posterior dominant rhythm. There is moderate beta activity bilaterally. The latter portion of the study is limited by lead artifact in F8, and later F7 as well. Drowsiness is characterized by background attenuation, and appearance of slow roving eye movements and bilateral slowing in the theta/delta range, and positive occipital sharp transients of sleep (POSTS), a normal variant. Stage N2 sleep is characterized by further slowing, vertex waves, and sleep spindles. PUSH BUTTON EVENTS: There were no patient event button pushes, and the patient did not report any of their typical symptoms in the event diary. Single lead EKG shows an apparent sinus rhythm of approximately 50-80 beats per minute. us Nancy Cardenas MD, MBBS NEUROLOGY ORDERABLES [...] documented as of this encounter Care Teams Director Of Market Intelligence Relationship Specialty Start Date End Date Ailin Araujo MD [address] [place] [phone] PCP - General Family Medicine 05/13/17 documented as of this encounter Additional Source Comments The information contained in this document represents components of the legal health record. It is not the complete legal health record.[facility]
--- OUTSIDE RECORDS SUMMARY | 2023-07-07 08:23 | XMS_ITS | Encounter Summary ---
Author Organization [facility] Address [address] [facility] [address] [place] [phone] Phone Care Team Providers Care Roll Changer Name Role Phone Ailin Araujo MD Primary Care Provider Encounter Details Date Type Department Care Team (Late st Contact Info) Description 07/07/2023 8:23 AM EST Hospital Encounter [facility] [address] [place] [address] [phone] Aldair Barrera, AUTO CLUB TRAVEL COUNSELOR [address] [place], [place] [phone] [email or web address] Social History Tobacco Use Types Packs/Day Years [...] Description 08/08/2025 1:30 PM EST Office Visit [facility] [address] [place] [address] Natalie Syed, [employer] [address] [place] [phone] Meaghan Houser, PT [address] [place] [address] 08/13/2025 11:15 AM EST Office Visit [facility] [address] [place] [address] Natalie Syed, [employer] [address] [place] [phone] Meaghan Houser, PT 8 [place] [address] 08/15/2025 1:30 PM EST Office Visit [facility] [address] [place] [address] Natalie Syed, [employer] [address] [place] [phone] Meaghan Houser, PT 8 [place] [address] 08/20/2025 11:15 AM EST Office Visit [facility] [address] [place] [address] Natalie Syed, [employer] [address] [place] [phone] Meaghan Houser, PT 8 [place] [address] 08/22/2025 1:30 PM EST Office Visit [facility] [address] [place] [address] [place] [address] Natalie Syed, [employer] [address] [address] Meaghan Houser, PT 8 [place] [address] 08/27/2025 11:15 AM EST Office Visit [facility] [address] [place] [address] Natalie Syed, [address] [address] Meaghan Houser, PT 8 [place] [address] 08/29/2025 1:30 PM EST Office Visit [facility] [address] [place] [address] Natalie Syed, [employer] [address] [address] Meaghan Houser, PT 8 [place] [address] 09/03/2025 11:15 AM EST Office Visit [facility] [address] [place] [address] [place] [address] Natalie Syed, [employer] [address] [address] Meaghan Houser, PT 8 [place] [address] 12/09/2025 12:30 PM EDT Office Visit [facility] [address] [place] [address] Natalie Syed, [employer] [facility] 2nd [place] [address] 12/18/2025 11:30 AM EDT Office Visit [facility] [address] Floor, [address] [place] [address] Angelic Cesar DNP 22 [facility], [address] [place] [address] 01/17/2026 10:30 AM EDT Telemedicine [facility] [address] [place] [address], 8th Floor, [address] [place] [address] Nancy Cardenas MD, MBBS [address] [place] [phone] [email or web address] documented as of this encounter Procedures Procedure Name Priority Date/Time Associated Diagnosis Comments XR ANKLE 3 OR MORE VIEWS (RIGHT) Urgent/patient waiting 07/07/2023 8:28 AM EST Cellulitis of right ankle documented in this encounter Results * XR ANKLE 3 OR MORE VIEWS (RIGHT) (07/07/2023 8:28 AM EST) Anatomical Region Laterality Modality Ankle Right Computed Radiogr aphy 07/07/2023 8:47 AM EST Impressions 07/07/2023 8:49 AM EST Lateral ankle soft tissue edema without fracture, dislocation, or evidence of osteomyelitis. Narrative 07/07/2023 8:49 AM EST XR ANKLE 3 OR MORE VIEWS (RIGHT) Referring clinician's provided indication for this examination in [facility]: Trauma; hit lateral ankle on Tuesday, Also, has signs of infection. R/O osteomylitis and fracture COMPARISON: None FINDINGS: Lateral ankle soft tissue edema without acute fracture, dislocation, radiopaque foreign body, or erosion. Intact ankle mortise. No ankle joint effusion. Procedure Note Consuelo Haywood MD - 07/07/2023 XR ANKLE 3 OR MORE VIEWS (RIGHT) Referring clinician's provided indication for this examination in [facility]:Trauma; hit lateral ankle on Tuesday, Also, has signs of infection. R/Oosteomylitis and fracture COMPARISON: None FINDINGS: Lateral ankle soft tissue edema without acute fracture, dislocation,radiopaque foreign body, or erosion. Intact ankle mortise. No ankle jointeffusion. IMPRESSION: Lateral ankle soft tissue edema without fracture, dislocation, or evidenceof osteomyelitis. Aldair Barrera [employer] TRAVEL COUNSELOR IMG XR LOWER EXTREMITY Final Result documented in this encounter Visit Diagnoses Not on filedocumented in this encounter Additional Health Concerns Infection Onset Date Last Indicated Resolved Time CoV-Risk 07/20/2023 07/20/2023 07/31/2023 1:22 AM EST CoV-Risk Comment:Per note documentation 06/06/2024 06/06/2024 10:40 AM EST CoV-Risk 08/31/2024 08/31/2024 09/11/2024 1:23 AM EST documented as of this encounter Care Teams Roll Changer Relationship Specialty Start Date End Date Ailin Araujo MD [address] [place] [phone] PCP - General Family Medicine 05/13/17 documented as of this encounter Additional Source Comments The information contained in this document represents components of the legal health record. It is not the complete legal health record.[facility]
[2025-07-10 10:58] VITALS: BP 132/90; BMI 26.9
--- NOTE | 2025-07-10 10:58 | HO.NEPHOV ---
Vital Signs 07/10/25 10:58 Height 5 ft 2 in Weight 147 lb BMI 26.9 BP 132/90 H Blood Pressure Location Rt brachial Position Sitting Intake Visit Reasons: 3 mo f/u-Conf Chief Lock Tender Operator Required: No Accompanied by: Self / Same As Patient Allergies bee pollen (Bee Stings) Allergy (Severe, Verified 07/10/25 11:00) ANAPHYLAXIS codeine (Codeine) Allergy (Severe, Verified 07/10/25 11:00) ANAPHYLAXIS macadamia nut Allergy (Severe, Verified 07/10/25 11:00) Anaphylaxis Penicillins Allergy (Severe, Verified 07/10/25 11:00) Anaphylaxis Sulfa (Sulfonamide Antibiotics) Allergy (Severe, Verified 07/10/25 11:00) Anaphylaxis sulfamethoxazole (From Bactrim) Allergy (Severe, Verified 07/10/25 11:00) Anaphylaxis trimethoprim (From Bactrim) Allergy (Severe, Verified 07/10/25 11:00) Anaphylaxis aspirin (ASA) Allergy (Verified 07/10/25 11:00) Unknown ciprofloxacin (From Cipro) Allergy (Verified 07/10/25 11:00) Rash Iodinated Contrast Media (Contrast Dye) Allergy (Verified 07/10/25 11:00) Hives latex Allergy (Verified 07/10/25 11:00) Rash HPI Comments Details: Jayda was seen for her chronic kidney disease. Her seizures had been better controlled but had relapse with seizures after she was initiated on wellbutryin which is reasonably controlled now. She remains on Bumex dose 0.5 mg daily as needed . Her breast cancer is closely monitored by [facility]. She denies any chest pain, shortness of breath, nausea, vomiting, diarrhea, weight gain, orthopnea or paroxysmal nocturnal dyspnea. She is not taking any nonsteroidal anti-inflammatory medications. She had no orthostatic symptoms. Her BP has been running low and was not taking her midodrine . She has history of atrial fibrillation which has been under control [facility] Medical History (Updated 11/21/24 @ 00:01 by Suzie Dabrionna) Accidental medication overdose Altered mental state Hypotension Orthostatic hypotension Seizure disorder History of prolonged Q-T interval on ECG Psychogenic nonepileptic seizure CKD (chronic kidney disease) stage 3, GFR 30-59 ml/min COPD (chronic obstructive pulmonary disease) GERD (gastroesophageal reflux disease) Port-A-Cath in place Malabsorption Compression fracture of C3 vertebra Self-catheterizes urinary bladder Neuropathy SIADH (syndrome of inappropriate ADH production) Chronic anemia Enlarged liver Enlarged heart History of atrial fibrillation Polysubstance abuse Von Willebrand disease Factor V deficiency Depression Uterine cancer Breast cancer Migraines Asthma Seizure Surgical History H/O knee surgery Hx of cholecystectomy History of hysterectomy H/O gastric bypass Social History Household Members: Children Household Members Other:: One son Housing: House Housing Other:: House has ramps Do you presently have visiting nurse or other home services: No Alcohol intake: unknown Comment: 1:1 Sitter at bedside Patient Tobacco Use Status: Never used Tobacco Tobacco use type: Cigarette Cigarettes Per Day: 2 e-Cigarette/Vaping Use: Never Used service: No Review of Systems Const All systems reviewed & are unremarkable except as noted in HPI and below Physical Exam Vital Signs: BMI result Body Mass Index 26.9 Const General: comfortable and no acute distress Orientation/consciousness: patient oriented x3 HEENT Head: Yes normocephalic Mouth: Normal oral and palatal mucosa present Eyes EOM: EOMs intact bilaterally Neck Neck: Yes supple Resp Auscultation: clear to auscultation bilaterally Cardio Jugular venous distension: no JVD Rate: regular rate GI Palpation (GI): Soft to palpation Auscultation: normal bowel sounds General: Yes no CVA tenderness Back/Spine/Pelvis Back: no CVA tenderness Skin General skin exam: no rashes or lesions noted Neuro General: patient oriented x3 and moves all extremities Extrem General: Yes no pedal edema Results Reviewed Nephrology Results: Hgb, (12.0-16.0) 13.2 g/dl 05/02/25 WBC, (4.8-10.8) 5.5 X10*3/uL 05/02/25 Plt Count, (160-400) 185 X10*3/uL 05/02/25 Sodium, (135-145) 143 mmol/L 05/02/25 Potassium, (3.3-5.1) 3.7 mmol/L 05/02/25 Chloride, (96-108) 116 mmol/L H 05/02/25 Carbon Dioxide, (22-29) 21 mmol/L L 05/02/25 BUN, (9-16) 14 mg/dL 05/02/25 Creatinine, (0.5-1.4) 1.00 mg/dL 05/02/25 Calcium, (8.4-10.2) 8.6 mg/dL Δ 05/02/25 Urine Protein, (Neg-Trace) Trace mg/dL 11/14/24 Assessment & Plan Assessment & Plan (1) CKD stage 3a, GFR 45-59 ml/min: Code(s): N18.31 - Chronic kidney disease, stage 3a Category: Medical (2) Orthostatic hypotension: Code(s): I95.1 - Orthostatic hypotension Category: Medical Plan Jayda has chronic kidney disease . Her serum creatinine had been stable. Her volume status is good and can have Bumex 0.5 mg daily as on a needed basis. She is not consuming excess salt. I asked her not to take excessive diuretics. She is on midodrine 2.5 mg bid . She is followed by cardiology for H/O A Fib. She is avoiding nonsteroidal anti-inflammatory medications. She should maintain good hydration. I asked her to repeat blood work soon. She will be seen in office in follow-up Orders: Orders Creatinine 3 Months I95.1 - Orthostatic hypotension, N18.31 - Chronic kidney disease, stage 3a Blood Urea Nitrogen 3 Months I95.1 - Orthostatic hypotension, N18.31 - Chronic kidney disease, stage 3a Electrolytes 3 Months I95.1 - Orthostatic hypotension, N18.31 - Chronic kidney disease, stage 3a Coding Level of Care Code Est Pt Level 4 (74808) Diagnoses CKD stage 3a, GFR 45-59 ml/min N18.31 Orthostatic hypotension I95.1
--- OUTSIDE RECORDS SUMMARY | 2025-07-10 12:30 | XMS_ITS | Encounter Summary ---
Author Organization [facility] Address 399 [facility] [address] [place] [address] Phone Care Team Providers Care Needle Felt Making Machine Operator Name Role Phone Pcp, Not Required Primary Care Provider Ailin Middleton MD Primary Care Provider Encounter Details Date Type Department Care Team (Late Contact Info) Description 01/13/2017 Procedure Pass [facility] [address] [place] [address] Social History Tobacco Use Types Packs/Day Years [...] Encounters Date Type Department Care Team (Late Contact Info) Description 08/08/2025 1:30 PM EST Office Visit [facility] [address] [place] [address] ElianNatalie little Meliza, PROPERTY CLAIMS MANAGER [address] [address] Meaghan Houser, PT 8 [place] [address] 08/13/2025 11:15 AM EST Office Visit [facility] [address] [place] [address] Yamilet Syedh Meliza, PROPERTY CLAIMS MANAGER [address] [address] Meaghan Houser, PT 8 [place] [address] 08/15/2025 1:30 PM EST Office Visit [facility] Physical Therapy [address] [place] [address] ElianNatalie little Meliza, [facility] [address] [address] [email or web address] Meaghan Houser, PT 8 [place] [address] 08/20/2025 11:15 AM EST Office Visit [facility] Therapy [address] [place] [address] Natalie Syed, PROPERTY CLAIMS MANAGER [address] [address] Meaghan Houser, PT 8 [place] [address] 08/22/2025 1:30 PM EST Office Visit [facility] [address] [place] [address] Natalie Syed, PROPERTY CLAIMS MANAGER [address] [address] Meaghan Houser, PT 8 [place] [address] 08/27/2025 11:15 AM EST Office Visit [facility] [address] [place] [address] [place] [address] Natalie Syed, [address] [address] Meaghan Houser, PT 8 [place] [address] 08/29/2025 1:30 PM EST Office Visit [facility] [address] [place] [address] [place] [address] Natalie Syed, [address] [address] Meaghan Houser, PT 8 [place] [address] 09/03/2025 11:15 AM EST Office Visit [facility] [address] [place] [address] Natalie Syed, PROPERTY CLAIMS MANAGER [address] [address] Meaghan Houser, PT 8 [place] [address] 12/09/2025 12:30 PM EDT Office Visit [facility] Clinic [address] [place] [address] Natalie Syed FNP 15 [facility], 2nd [place] [address] [email or web address] 12/18/2025 11:30 AM EDT Office Visit [facility] [address] 3rd Floor, [address] [place] [address] Angelic Cesar DNP 22 [facility], [address] [place] [address] [email or web address] 01/17/2026 10:30 AM EDT Telemedicine [facility] [address] [place] [address], 8th Floor, [address] [place] [address] Nancy Cardenas MD, MBBS 55 [facility] [address] [place] [id number] [email or web address] documented as of this encounter Visit Diagnoses Not on filedocumented in this encounter Additional Health Concerns Infection Onset Date Last Indicated Resolved Time CoV-Risk 07/20/2023 07/20/2023 07/31/2023 1:22 AM EST CoV-Risk Comment:Per note documentation 06/06/2024 06/06/2024 10:40 AM EST CoV-Risk 08/31/2024 08/31/2024 09/11/2024 1:23 AM EST documented as of this encounter Care Teams Needle Felt Making Machine Operator Relationship Specialty Start Date End Date Pcp, Not Required PCP - General 12/31/16 05/12/17 Ailin Araujo MD [address] [place] [address] PCP - General Family Medicine 05/13/17 documented as of this encounter Additional Source Comments The information contained in this document represents components of the legal health record. It is not the complete legal health record.[facility]
--- OUTSIDE RECORDS SUMMARY | 2025-07-10 12:30 | XMS_ITS | Patient Health Record ---
Author Organization [facility] Address [address] [facility] [place] [address] Care Team Providers Care Air Press Operator Name Role Phone Ailin Araujo MD Primary Care Provider UnavailLefty Shepard Unavailable [phone] Allergies Allergen (clinical drug ingredient) Drug/Non Drug [...] Active Botox Active Procrit Active Spinal Introducer 15Dr9-0/4 Active Tamoxifen Citrate 10 MG Oral; Duration: [...] Status Risk Notes Problem Pain in limb (31243527) Pain in unspecified foot (M79.673) Active confirmed Problem Neurological disorder associated with type I diabetes mellitus (168272466) 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 [address] [id number] Liana Moser Self - patient is the insured Medical (General) History Medical History History ICD Code Anemia Anxiety Arthritis Back,Hip,and Knee pain Cancer Depression Diabetic Migraines Nerve disease Neuropathy Chicken pox Measles Poor circulation Psychiatric disorder Sciatica Transfusions Seizures Surgical History Surgery Date(Month/Year) hysterectomy lumpectomy cholecystectomy gastric bypass
--- OUTSIDE RECORDS SUMMARY | 2025-07-10 12:30 | XMS_ITS | Encounter Summary ---
Author Organization [facility] Address 399 [facility] [address] [place] [address] Phone Care Team Providers Care Custom Ski Maker Name Role Phone Pcp, Not Required Primary Care Provider Ailin Middleton MD Primary Care Provider Encounter Details Date Type Department Care Team (Late Contact Info) Description 01/13/[address] [facility] [address] [place] [address] Social History Tobacco Use Types Packs/Day Years [...] Visit [facility] [address] [place] [address] ElianNatalie little Mleiza, OTR [employer] TRUCK DRIVER [address] [address] Meaghan Houser, PT 8 [place] [address] 08/13/2025 11:15 AM EST Office Visit [facility] [address] [place] [address] Yamilet Syedh Meliza, OTR [employer] TRUCK DRIVER [address] [address] Meaghan Houser, PT 8 [place] [address] 08/15/2025 1:30 PM EST Office Visit [facility] Therapy [address] [place] [address] ElianNatalie little Meliza, [facility] [address] [address] [email or web address] Meaghan Houser, PT 8 [place] [address] 08/20/2025 11:15 AM EST Office Visit [facility] [address] [place] [address] Natalie Syed, OTR [employer] TRUCK DRIVER [address] [address] Meaghan Houser, PT 8 [place] [address] 08/22/2025 1:30 PM EST Office Visit [facility] [address] [place] [address] Natalie Syed, OTR [employer] TRUCK DRIVER [address] [address] Meaghan Houser, PT 8 [place] [address] 08/27/2025 11:15 AM EST Office Visit [facility] [address] [place] [address] [place] [address] Natalie Syed, [address] [address] Meaghan Houser, PT 8 [place] [address] 08/29/2025 1:30 PM EST Office Visit [facility] [address] [place] [address] [place] [address] Natalie Syed, [address] [address] Meaghan Houser, PT 8 [place] [address] 09/03/2025 11:15 AM EST Office Visit [facility] [address] [place] [address] Natalie Syed, OTR [employer] TRUCK DRIVER [address] [address] Meaghan Houser, PT 8 [place] [address] 12/09/2025 12:30 PM EDT Office Visit [facility] [address] [place] [address] Natalie Syed FNP 15 [facility], 2nd [place] [address] [email or web address] 12/18/2025 11:30 AM EDT Office Visit [facility] [address] 3rd Floor, [address] [place] [address] Angelic Cesar DNP 22 [facility], [address] [place] [address] [email or web address] 01/17/2026 10:30 AM EDT Telemedicine [facility] [address] [place] [address], 8th Floor, [address] [place] [address] Nancy Cardenas MD, MBBS 55 [facility] 720 [place] [id number] [email or web address] documented as of this encounter Visit Diagnoses Not on filedocumented in this encounter Additional Health Concerns Infection Onset Date Last Indicated Resolved Time CoV-Risk 07/20/2023 07/20/2023 07/31/2023 1:22 AM EST CoV-Risk Comment:Per note documentation 06/06/2024 06/06/2024 10:40 AM EST CoV-Risk 08/31/2024 08/31/2024 09/11/2024 1:23 AM EST documented as of this encounter Care Teams Custom Ski Maker Relationship Specialty Start Date End Date Pcp, Not Required PCP - General 12/31/16 05/12/17 Ailin Araujo MD [address] [place] [address] PCP - General Family Medicine 05/13/17 documented as of this encounter Additional Source Comments The information contained in this document represents components of the legal health record. It is not the complete legal health record.[facility]
--- OUTSIDE RECORDS SUMMARY | 2025-07-10 12:30 | XMS_ITS | Encounter Summary ---
Author Organization [facility] Address 399 [facility] [address] [place] [address] Phone Care Team Providers Care Relays Draftsperson Name Role Phone Pcp, Not Required Primary Care Provider Ailin Middleton MD Primary Care Provider Encounter Details Date Type Department Care Team (Late Contact Info) Description 01/13/2017 Procedure Pass [facility] Imaging [address] [place] [address] Social History Tobacco Use Types Packs/Day Years [...] Visit [facility] [address] [place] [address] ElianNatalie little Meliza, CREDIT REPRESENTATIVE [address] [address] Meaghan Houser, PT 8 [place] [address] 08/13/2025 11:15 AM EST Office Visit [facility] [address] [place] [address] Yamilet Syedh Meliza, CREDIT REPRESENTATIVE [address] [address] Meaghan Houser, PT 8 [place] [address] 08/15/2025 1:30 PM EST Office Visit [facility] Physical Therapy [address] [place] [address] ElianNatalie little Meliza, [facility] [address] [address] [email or web address] Meaghan Houser, PT 8 [place] [address] 08/20/2025 11:15 AM EST Office Visit [facility] Physical Therapy [address] [place] [address] Natalie Syed, CREDIT REPRESENTATIVE [address] [address] Meaghan Houser, PT 8 [place] [address] 08/22/2025 1:30 PM EST Office Visit [facility] Therapy [facility] [address] [place] [address] Natalie Syed, CREDIT REPRESENTATIVE [address] [address] Meaghan Houser, PT 8 [place] [address] 08/27/2025 11:15 AM EST Office Visit [facility] Clinic [address] [place] [address] [place] [address] Natalie Syed, [address] [address] Meaghan Houser, PT 8 [place] [address] [email or web address] 08/29/2025 1:30 PM EST Office Visit [facility] [address] [place] [address] [place] [address] Natalie Syed, [address] [address] Meaghan Houser, PT 8 [place] [address] 09/03/2025 11:15 AM EST Office Visit [facility] [address] [place] [address] Natalie Syed, CREDIT REPRESENTATIVE [address] [address] Meaghan Houser, PT 8 [place] [address] [email or web address] 12/09/2025 12:30 PM EDT Office Visit [facility] [address] [place] [address] Natalie Syed FNP 15 [facility], 2nd [place] [address] [email or web address] 12/18/2025 11:30 AM EDT Office Visit [facility] [address] 3rd Floor, [address] [place] [address] Angelic Cesar DNP 22 [facility], [address] [place] [address] [email or web address] 01/17/2026 10:30 AM EDT Telemedicine [facility] Service [address] [place] [address], 8th Floor, [address] [place] [address] Nancy Cardenas MD, MBBS 55 [facility] [address] [place] [phone] [email or web address] documented as of this encounter Visit Diagnoses Not on filedocumented in this encounter Additional Health Concerns Infection Onset Date Last Indicated Resolved Time CoV-Risk 07/20/2023 07/20/2023 07/31/2023 1:22 AM EST CoV-Risk Comment:Per note documentation 06/06/2024 06/06/2024 10:40 AM EST CoV-Risk 08/31/2024 08/31/2024 09/11/2024 1:23 AM EST documented as of this encounter Care Teams Relays Draftsperson Relationship Specialty Start Date End Date Pcp, Not Required PCP - General 12/31/16 05/12/17 Ailin Araujo MD [address] [place] [address] PCP - General Family Medicine 05/13/17 documented as of this encounter Additional Source Comments The information contained in this document represents components of the legal health record. It is not the complete legal health record.[facility]
--- OUTSIDE RECORDS SUMMARY | 2025-07-10 12:31 | XMS_ITS | Encounter Summary ---
Author Organization [facility] Address 399 [facility] [address] [place] [address] Phone Care Team Providers Care Central Office Worker Name Role Phone Pcp, Not Required Primary Care Provider Ailin Middleton MD Primary Care Provider Encounter Details Date Type Department Care Team (Late Contact Info) Description 01/13/2017 Procedure Pass [facility] Imaging [address] [place] [address] Social History Tobacco Use Types Packs/Day Years [...] Visit [facility] [address] [place] [address] ElianNatalie little Meliza, WET ROASTER [address] [address] Meaghan Houser, PT 8 [place] [address] 08/13/2025 11:15 AM EST Office Visit [facility] Therapy Clinic [address] [place] [address] Yamilet Syedh Meliza, WET ROASTER [address] [address] Meaghan Houser, PT 8 [place] [address] 08/15/2025 1:30 PM EST Office Visit [facility] Physical Therapy [address] [place] [address] ElianNatalie little Meliza, [facility] [address] [address] [email or web address] Meaghan Houser, PT 8 [place] [address] 08/20/2025 11:15 AM EST Office Visit [facility] Physical Therapy [address] [place] [address] Natalie Syed, WET ROASTER [address] [address] Meaghan Houser, PT 8 [place] [address] 08/22/2025 1:30 PM EST Office Visit [facility] Therapy Clinic [address] [place] [address] Natalie Syed, WET ROASTER [address] [address] Meaghan Houser, PT 8 [place] [address] 08/27/2025 11:15 AM EST Office Visit [facility] Therapy Clinic [address] [place] [address] [place] [address] Natalie Syed, [address] [address] Meaghan Houser, PT 8 [place] [address] [email or web address] 08/29/2025 1:30 PM EST Office Visit [facility] Clinic [address] [place] [address] [place] [address] Natalie Syed, [address] [address] Meaghan Houser, PT 8 [place] [address] 09/03/2025 11:15 AM EST Office Visit [facility] Clinic [address] [place] [address] Natalie Syed, WET ROASTER [address] [address] Meaghan Houser, PT 8 [place] [address] [email or web address] 12/09/2025 12:30 PM EDT Office Visit [facility] Neurology Clinic [address] [place] [address] Natalie Syed FNP 15 [facility], 2nd [place] [address] [email or web address] 12/18/2025 11:30 AM EDT Office Visit [facility] [address] 3rd Floor, [address] [place] [address] Angelic Cesar DNP 22 [facility], [address] [place] [address] [email or web address] 01/17/2026 10:30 AM EDT Telemedicine [facility] Service [address] [place] [address], 8th Floor, [address] [place] [address] Nancy Cardenas MD, MBBS 55 [facility] [address] [place] [phone] JUAN [email or web address] documented as of this encounter Visit Diagnoses Not on filedocumented in this encounter Additional Health Concerns Infection Onset Date Last Indicated Resolved Time CoV-Risk 07/20/2023 07/20/2023 07/31/2023 1:22 AM EST CoV-Risk Comment:Per note documentation 06/06/2024 06/06/2024 10:40 AM EST CoV-Risk 08/31/2024 08/31/2024 09/11/2024 1:23 AM EST documented as of this encounter Care Teams Central Office Worker Relationship Specialty Start Date End Date Pcp, Not Required PCP - General 12/31/16 05/12/17 Ailin Araujo MD [address] [place] [address] PCP - General Family Medicine 05/13/17 documented as of this encounter Additional Source Comments The information contained in this document represents components of the legal health record. It is not the complete legal health record.[facility]
--- OUTSIDE RECORDS SUMMARY | 2025-07-10 12:31 | XMS_ITS | Encounter Summary ---
Author Organization [facility] Address 399 [facility] [address] [place] [address] Phone Care Team Providers Care Oiling Machine Operator Name Role Phone Pcp, Not Required Primary Care Provider Ailin Middleton MD Primary Care Provider Encounter Details Date Type Department Care Team (Late Contact Info) Description 01/13/2017 Procedure Pass [facility] Imaging [address] [place] [address] Social History Tobacco Use Types Packs/Day Years [...] Visit [facility] [address] [place] [address] ElianNatalie little Meliza, CHANDELIER MAKER [address] [address] Meaghan Houser, PT 8 [place] [address] 08/13/2025 11:15 AM EST Office Visit [facility] Physical Therapy Clinic [address] [place] [address] Yamilet Syedh Meliza, CHANDELIER MAKER [address] [address] Meaghan Houser, PT 8 [place] [address] 08/15/2025 1:30 PM EST Office Visit [facility] Physical Therapy [address] [place] [address] ElianNatalie little Meliza, [facility] [address] [address] [email or web address] Meaghan Houser, PT 8 [place] [address] 08/20/2025 11:15 AM EST Office Visit [facility] Physical Therapy [address] [place] [address] Natalie Syed, CHANDELIER MAKER [address] [address] Meaghan Houser, PT 8 [place] [address] 08/22/2025 1:30 PM EST Office Visit [facility] Physical Therapy Clinic [address] [place] [address] Natalie Syed, CHANDELIER MAKER [address] [address] Meaghan Houser, PT 8 [place] [address] 08/27/2025 11:15 AM EST Office Visit [facility] Therapy Clinic [address] [place] [address] [place] [address] Natalie Syed, [address] [address] Meaghan Houser, PT 8 [place] [address] [email or web address] 08/29/2025 1:30 PM EST Office Visit [facility] Physical Therapy Clinic [address] [place] [address] [place] [address] Natalie Syed, [address] [address] Meaghan Houser, PT 8 [place] [address] 09/03/2025 11:15 AM EST Office Visit [facility] Physical Therapy Clinic [address] [place] [address] Natalie Syed, CHANDELIER MAKER [address] [address] Meaghan Houser, PT 8 [place] [address] [email or web address] 12/09/2025 12:30 PM EDT Office Visit [facility] Neurology Clinic [address] [place] [address] Natalie Syed FNP 15 [facility], 2nd [place] [address] [email or web address] 12/18/2025 11:30 AM EDT Office Visit [facility] [address] 3rd Floor, [address] [place] [address] Angelic Cesar DNP 22 [facility], [address] [place] [address] [email or web address] 01/17/2026 10:30 AM EDT Telemedicine [facility] Service [address] [place] [address], 8th Floor, [address] [place] [address] Nancy Cardenas MD, MBBS 55 [facility] 720 [place] [phone] JUAN [email or web address] documented as of this encounter Visit Diagnoses Not on filedocumented in this encounter Additional Health Concerns Infection Onset Date Last Indicated Resolved Time CoV-Risk 07/20/2023 07/20/2023 07/31/2023 1:22 AM EST CoV-Risk Comment:Per note documentation 06/06/2024 06/06/2024 10:40 AM EST CoV-Risk 08/31/2024 08/31/2024 09/11/2024 1:23 AM EST documented as of this encounter Care Teams Oiling Machine Operator Relationship Specialty Start Date End Date Pcp, Not Required PCP - General 12/31/16 05/12/17 Ailin Araujo MD [address] [place] [address] PCP - General Family Medicine 05/13/17 documented as of this encounter Additional Source Comments The information contained in this document represents components of the legal health record. It is not the complete legal health record.[facility]
--- OUTSIDE RECORDS SUMMARY | 2025-07-10 12:31 | XMS_ITS | Encounter Summary ---
Author Organization [facility] Address 399 [facility] [address] [place] [address] Phone Care Team Providers Care Briquetter Operator Name Role Phone Ailin Araujo MD Primary Care Provider Encounter Details Date Type Department Care Team (Late st Contact Info) Description 10/19/2023 Procedure Pass [facility], Ct Scan - [address] [address] Social History Tobacco Use Types Packs/Day Years [...] Description 08/08/2025 1:30 PM EST Office Visit [facility] Therapy Clinic [address] [place] [address] [place] [address] Natalie Syed, FISH HOUSEKEE[address] [address] Meaghan Houser, PT 8 [place] [address] 08/13/2025 11:15 AM EST Office Visit [facility] Physical Therapy [address] [place] [address] Natalie Syed, [address] [address] Meaghan Houser, PT 8 [place] [address] 08/15/2025 1:30 PM EST Office Visit [facility] [address] [place] [address] [place] [address] Natalie Syed, [address] [address] Meaghan Houser, PT 8 [place] [address] 08/20/2025 11:15 AM EST Office Visit [facility] [address] [place] [address] Natalie Syed, [address] [address] Meaghan Houser, PT 8 [place] [address] 08/22/2025 1:30 PM EST Office Visit [facility] [address] [place] [address] Natalie Syed, [address] [address] Meaghan Houser, PT 8 [place] [address] 08/27/2025 11:15 AM EST Office Visit [facility] [address] [place] [address] Natalie Syed, [address] [address] Meaghan Houser, PT 8 [place] [address] 08/29/2025 1:30 PM EST Office Visit [facility] Therapy Clinic [address] [place] [address] Natalie Syed, [address] [address] Meaghan Houser, PT 8 [place] [address] 09/03/2025 11:15 AM EST Office Visit [facility] [address] [place] [address] Natalie Syed, FISH HOUSEKEEPER 15 [facility], [address] [place] [address] Meaghan Houser, PT 8 [place] [address] 12/09/2025 12:30 PM EDT Office Visit [facility]rology [facility] [address] [place] [address] Natalie Syed, FISH HOUSEKEEPER 15 [facility], [address] [place] [address] 12/18/2025 11:30 AM EDT Office Visit [facility] 22 [facility] 3rd Floor, [address] [place] [address] Angelic Cesar DNP 22 [facility], [address] [address] 01/17/2026 10:30 AM EDT Telemedicine [facility] Service [address] [place] [address], 8th Floor, [address] [place] [address] Nancy Cardenas MD, MBBS [address] [phone] JUAN [email or web address] documented as of this encounter Visit Diagnoses Not on filedocumented in this encounter Additional Health Concerns Infection Onset Date Last Indicated Resolved Time CoV-Risk Comment:Per note documentation 06/06/2024 06/06/2024 10:40 AM EST CoV-Risk 08/31/2024 08/31/2024 09/11/2024 1:23 AM EST documented as of this encounter Care Teams Briquetter Operator Relationship Specialty Start Date End Date Ailin Araujo MD [address] [place] [address] PCP - General Family Medicine 05/13/17 documented as of this encounter Additional Source Comments The information contained in this document represents components of the legal health record. It is not the complete legal health record.[facility]
--- OUTSIDE RECORDS SUMMARY | 2025-07-10 12:31 | XMS_ITS | Encounter Summary ---
Author Organization [facility] Address [address] [place] [address] Phone Care Team Providers Care Straw Hat Machine Operator Name Role Phone Pcp, Not Required Primary Care Provider Ailin Middleton MD Primary Care Provider Reason for Visit * Reason Onset Date Comments Appointment 05/11/2017 Left a vm Encounter Details Date Type Department Care Team (Late st Contact Info) Description 05/11/2017 Telephone [facility] Epilepsy Service [address] [place] [address], 8th Floor, [address] [place], [place] [phone] Nancy Cardenas MD, MBBS [address] [phone] JUAN [email or web address] Appointment (Left a vm) Social History [...] Description 08/08/2025 1:30 PM EST Office Visit [facility] Clinic [address] [place] [address] [place] [address] Natalie Syed, VENEER JOINTER OFFBEARER [address] [address] Meaghan Houser, PT 8 [place] [address] 08/13/2025 11:15 AM EST Office Visit [facility] Physical Therapy [address] [place] [address] Natalie Syed, [address] [address] Meaghan Houser, PT 8 [place] [address] 08/15/2025 1:30 PM EST Office Visit [facility] Physical Therapy [address] [place] [address] Natalie Syed, [address] [address] Meaghan Houser, PT 8 [place] [address] 08/20/2025 11:15 AM EST Office Visit [facility] Physical Therapy [facility] [address] [place] [address] Natalie Syed, [address] [address] Meaghan Houser, PT 8 [place] [address] 08/22/2025 1:30 PM EST Office Visit [facility] [address] [place] [address] Natalie Syed, VENEER JOINTER OFFBEARER [address] [address] Meaghan Houser, PT 8 [place] [address] 08/27/2025 11:15 AM EST Office Visit [facility] [address] [place] [address] Natalie Syed, [address] [address] Meaghan Houser, PT 8 [place] [address] 08/29/2025 1:30 PM EST Office Visit [facility] Physical Therapy [facility] [address] [place] [address] Natalie Syed, [address] [address] Meaghan Houser, PT 8 [place] [address] 09/03/2025 11:15 AM EST Office Visit [facility] Clinic [address] [place] [address] Natalie Syed, VENEER JOINTER OFFBEARER [address] [address] Meaghan Houser, PT 8 [place] [address] 12/09/2025 12:30 PM EDT Office Visit [facility] Neurology Clinic [address] [place] [address] Natalie Syed, VENEER JOINTER OFFBEARER 15 [facility], 2nd [place] [address] 12/18/2025 11:30 AM EDT Office Visit [facility] [address] 3rd Floor, [address] [place] [address] Angelic Cesar DNP 22 [facility], [address] [place] [address] 01/17/2026 10:30 AM EDT Telemedicine [facility] Epilepsy Service [address] [place] [address], 8th Floor, [address] [place] [address] Nancy Cardenas MD, MBBS [address] [phone] JUAN [email or web address] documented as of this encounter Visit Diagnoses Not on filedocumented in this encounter Additional Health Concerns Infection Onset Date Last Indicated Resolved Time CoV-Risk 07/20/2023 07/20/2023 07/31/2023 1:22 AM EST CoV-Risk Comment:Per note documentation 06/06/2024 06/06/2024 10:40 AM EST CoV-Risk 08/31/2024 08/31/2024 09/11/2024 1:23 AM EST documented as of this encounter Care Teams Straw Hat Machine Operator Relationship Specialty Start Date End Date Pcp, Not Required PCP - General 12/31/16 05/12/17 Ailin Araujo MD [address] [place] [address] PCP - General Family Medicine 05/13/17 documented as of this encounter Additional Source Comments The information contained in this document represents components of the legal health record. It is not the complete legal health record.[facility]
--- OUTSIDE RECORDS SUMMARY | 2025-07-10 12:31 | XMS_ITS | Clinical Summary ---
Author Organization [facility] Address [address] [place] [phone] Phone Care Team Providers Care Furniture Duster Name Role Phone Ailin Araujo MD Primary Care Provider Allergies No known active allergies Medications bumetanide [...] Problem Noted Date Diagnosed Date Seizure-like activity 10/01/2024 Surgical History Surgery Date Site/Laterality Comments HYSTERECTOMY Medical History Medical History Date Comments Seizure disorder ([facility] V24, [facility] V28) CKD (chronic kidney disease) History of migraine headaches Breast cancer ([facility] V24, [facility] V28[facility] Uterine cancer ([facility] V24, [facility] V28) Asthma Orthostatic hypotension Venous insufficiency History of anemia due to chronic kidney disease Migraine headache PTSD (post-traumatic stress disorder) Bipolar disorder ([facility] V24, [facility] V28) Social History Tobacco Use [...] ed Within the last 3 months, sinan w many times did you visit the [...] for your loved ones. For example, child welfare manager or elderly care for an older adult? [...] Orientation Straight 10/01/2024 6: 01 PM EDT Last Filed Vital Signs Vital [...] Screening 1965 Colorectal Cancer Screening: Colonoscopy 1965 Drug Screen 1965 Non-Opioid Controlled Substance Agreement 1965 Zoster Vaccines (1 of 2) 01/09/1984 [...] Medicare Annual Wellness Visit 10/02/2024 COVID-19 Vaccine ( season) 2025 05/25/2024, 05/06/2023, 04/03/2022, Additional history [...] mmol/L LAB CHEMISTRY METHOD 10/03/2024 7:09 AM [facility] Potassium 3.6 3.5 - 5.5 mmol/L LAB CHEMISTRY METHOD 10/03/2024 7:09 AM [facility] Chloride 109 96 - 110 mmol/L LAB CHEMISTRY METHOD 10/03/2024 7:09 AM [facility] CO2 28 21 - 32 mmol/L LAB CHEMISTRY METHOD 10/03/2024 7:09 AM [facility] Anion Gap 4 3 - 11 LAB CHEMISTRY METHOD 10/03/2024 7:09 AM [facility] Glucose 84 70 - 100 mg/dL LAB CHEMISTRY METHOD 10/03/2024 7:09 AM [facility] BUN 16 5 - 25 mg/dL LAB CHEMISTRY METHOD 10/03/2024 7:09 AM EDT [facility] Creatinine 1.11(H) 0.50 - 1.10 mg/dL LAB CHEMISTRY METHOD 10/03/2024 7:09 AM EDT [facility] eGFR 57(L) >=60 mL/min/1. 73m2 LAB CHEMISTRY METHOD 10/03/2024 7:09 AM EDT [facility] Comment:Calculation based on the Chronic Kidney Disease Epidemiology Collaboration (CKD-EPI) equation refit without adjustment for race. BUN/Creatinine Ratio 14.4 LAB CHEMISTRY METHOD 10/03/2024 7:09 AM T [facility] Calcium 8.8 8.5 - 10.5 mg/dL LAB CHEMISTRY METHOD 10/03/2024 7:09 AM [facility] Blood Venous blood specimen / Unknown Venipuncture / Unknown 10/03/2024 5:51 AM EDT 10/03/2024 6:13 AM EDT us Justina Ramos MD LAB BLOOD ORDERABLES Final Res ult [facility] [address] [place] [address], from Last 3 Months or Most Recently [...] currently active code status orders. Care Teams Furniture Duster Relationship Specialty Start Date End Date Ailin Araujo MD [address] [place] [address], [address] [place] [address] PCP - General Family Medicine 10/01/24
--- OUTSIDE RECORDS SUMMARY | 2025-07-10 12:31 | XMS_ITS | Encounter Summary ---
Author Organization [facility] Address [address] [facility] [address] [place] [phone] Phone Care Team Providers Care Reimbursement Specialist Name Role Phone Ailin Araujo MD Primary Care Provider Encounter Details Date Type Department Care Team (Late st Contact Info) Description 12/22/2020 Procedure Pass [facility], Ct Scan - [address] [address] Social History Tobacco Use Types Packs/Day Years [...] Description 08/08/2025 1:30 PM EST Office Visit [facility] [address] [place] [address] Natalie Syed FNP [address] [address] Meaghan Houser, PT 8 [place] [address] 08/13/2025 11:15 AM EST Office Visit [facility] [address] [place] [address] Natalie Syed, [address] [address] Meaghan Houser, PT 8 [place] [address] 08/15/2025 1:30 PM EST Office Visit [facility] Physical Therapy [address] [place] [address] Natalie Syed, [address] [address] [email or web address] Meaghan Houser, PT 8 [place] [address] 08/20/2025 11:15 AM EST Office Visit [facility] Physical Therapy [facility] [address] [place] [address] Natalie Syed, [address] [address] Meaghan Houser, PT 8 [place] [address] 08/22/2025 1:30 PM EST Office Visit [facility] [address] [place] [address] Natalie Syed, PIPE OR STEAM FITTER FURNACE INSTALLER [address] [address] Meaghan Houser, PT 8 [place] [address] 08/27/2025 11:15 AM EST Office Visit [facility] [address] [place] [address] KunalNatalie Meliza, PIPE OR STEAM FITTER FURNACE INSTALLER [address] [address] Meaghan Houser, PT 8 [place] [address] 08/29/2025 1:30 PM EST Office Visit [facility] [address] [place] [address] ElianNatalie little Meliza, [facility] [address] [address] Meaghan Houser, PT 8 [place] [address] 09/03/2025 11:15 AM EST Office Visit [facility] [address] [place] [address] Natalie Syed, PIPE OR STEAM FITTER FURNACE INSTALLER [address] [address] Meaghan Houser, PT 8 [place] [address] 12/09/2025 12:30 PM EDT Office Visit [facility] Neurology Clinic [address] [place] [address] Natalie Syed, PIPE OR STEAM FITTER FURNACE INSTALLER 15 [facility], 2nd [place] [address] 12/18/2025 11:30 AM EDT Office Visit [facility] [address] 3rd Floor, [address] [place] [address] Angelic Cesar DNP 22 [facility], [address] [place] [address] 01/17/2026 10:30 AM EDT Telemedicine [facility] Service 55 [facility], 8th Floor, [address] [place] [address] Nancy Cardenas MD, MBBS [address] [phone] JUAN [email or web address] documented as of this encounter Visit Diagnoses Not on filedocumented in this encounter Additional Health Concerns Infection Onset Date Last Indicated Resolved Time CoV-Risk 07/20/2023 07/20/2023 07/31/2023 1:22 AM EST CoV-Risk Comment:Per note documentation 06/06/2024 06/06/2024 10:40 AM EST CoV-Risk 08/31/2024 08/31/2024 09/11/2024 1:23 AM EST documented as of this encounter Care Teams Reimbursement Specialist Relationship Specialty Start Date End Date Ailin Araujo MD [address] [place] [address] PCP - General Family Medicine 05/13/17 documented as of this encounter Additional Source Comments The information contained in this document represents components of the legal health record. It is not the complete legal health record.[facility]
--- OUTSIDE RECORDS SUMMARY | 2025-07-10 12:31 | XMS_ITS | Encounter Summary ---
Author Organization [employer] Address [address] [facility] [address] 7 [place] [address] Care Team Providers Care Health Editor Name Role Phone Unavailable Primary Care Provider Unavailabl e Reason for Visit * Reason Onset Date Comments Dr. Currie denture update 08/07/2024 Encounter Details Date Type Department Care Team (Late st Contact Info) Description 08/07/2024 Telephone [facility] DENT[facility] [address] [place] [address] Collins Mendiola BDS [address] [place] [address] Currie denture update Social History Tobacco [...]
--- OUTSIDE RECORDS SUMMARY | 2025-07-10 12:31 | XMS_ITS | Encounter Summary ---
Author Organization [facility] Address [address] [facility] [address] [place] [address] Phone Care Team Providers Care Junior Linux Systems Administrator Name Role Phone Pcp, Not Required Primary Care Provider Ailin Middleton MD Primary Care Provider Encounter Details Date Type Department Care Team (Late Contact Info) Description 01/13/2017 Procedure Pass [facility] [address] [place] [address] Social History Tobacco Use Types Packs/Day Years [...] Visit [facility] [address] [place] [address] ElianNatalie little Meliza, FIELD CROPS HARVEST MACHINE OPERATOR [address] [address] Meaghan Houser, PT 8 [place] [address] 08/13/2025 11:15 AM EST Office Visit [facility] [address] [place] [address] Yamilet Syedh Meliza, FIELD CROPS HARVEST MACHINE OPERATOR [address] [address] Meaghan Houser, PT 8 [place] [address] 08/15/2025 1:30 PM EST Office Visit [facility] Physical Therapy [address] [place] [address] ElianNatalie little Meliza, [facility] [address] [address] [email or web address] Meaghan Houser, PT 8 [place] [address] 08/20/2025 11:15 AM EST Office Visit [facility] Physical Therapy [address] [place] [address] Natalie Syed, FIELD CROPS HARVEST MACHINE OPERATOR [address] [address] Meaghan Houser, PT 8 [place] [address] 08/22/2025 1:30 PM EST Office Visit [facility] [address] [place] [address] Natalie Syed, FIELD CROPS HARVEST MACHINE OPERATOR [address] [address] Meaghan Houser, PT 8 [place] [address] 08/27/2025 11:15 AM EST Office Visit [facility] [address] [place] [address] [place] [address] Natalie Syed, [address] [address] Meaghan Houser, PT 8 [place] [address] 08/29/2025 1:30 PM EST Office Visit [facility] [address] [place] [address] [place] [address] Natalie Syed, [address] [address] Meaghan Houser, PT 8 [place] [address] 09/03/2025 11:15 AM EST Office Visit [facility] [address] [place] [address] Natalie Syed, FIELD CROPS HARVEST MACHINE OPERATOR [address] [address] Meaghan Houser, PT 8 [place] [address] 12/09/2025 12:30 PM EDT Office Visit [facility]rology [facility] [address] [place] [address] Natalie Syed FNP 15 [facility], 2nd [place] [address] [email or web address] 12/18/2025 11:30 AM EDT Office Visit [facility] [address] 3rd Floor, [address] [place] [address] Angelic Cesar DNP 22 [facility], [address] [place] [address] [email or web address] 01/17/2026 10:30 AM EDT Telemedicine [facility] Service [address] [place] [address], 8th Floor, [address] [place] [address] Nancy Cardenas MD, MBBS 55 [facility] [address] [place] [phone] JUAN [email or web address] documented as of this encounter Visit Diagnoses Not on filedocumented in this encounter Additional Health Concerns Infection Onset Date Last Indicated Resolved Time CoV-Risk 07/20/2023 07/20/2023 07/31/2023 1:22 AM EST CoV-Risk Comment:Per note documentation 06/06/2024 06/06/2024 10:40 AM EST CoV-Risk 08/31/2024 08/31/2024 09/11/2024 1:23 AM EST documented as of this encounter Care Teams Junior Linux Systems Administrator Relationship Specialty Start Date End Date Pcp, Not Required PCP - General 12/31/16 05/12/17 Ailin Araujo MD [address] [place] [address] PCP - General Family Medicine 05/13/17 documented as of this encounter Additional Source Comments The information contained in this document represents components of the legal health record. It is not the complete legal health record.[facility]
--- OUTSIDE RECORDS SUMMARY | 2025-07-10 12:31 | XMS_ITS | Encounter Summary ---
Author Organization [facility] Address [address] [facility] [address] [place] [address] Phone Care Team Providers Care Production Stage Manager Name Role Phone Ailin Araujo MD Primary Care Provider Encounter Details Date Type Department Care Team (Late st Contact Info) Description 07/20/2023 Transcribe Orders [facility] Specimen Processing 30 [place] [address] Ailin Araujo MD 95 [place] [address] Social History Tobacco Use Types Packs/Day Years [...] Description 08/08/2025 1:30 PM EST Office Visit [facility] [address] [place] [address] Natalie Syed, [address] [address] [email or web address] Meaghan Houser, PT 8 [place] [address] [email or web address] 08/13/2025 11:15 AM EST Office Visit [facility] 8 [place] [address] Natalie Syed, [address] [address] [email or web address] Meaghan Houser, PT 8 [place] [address] [email or web address] 08/15/2025 1:30 PM EST Office Visit [facility] [address] [place] [address] Natalie Syed, [facility] [address] [address] [email or web address] Meaghan Houser, PT 8 [place] [address] 08/20/2025 11:15 AM EST Office Visit [facility] [address] [place] [address] [place] [address] Natalie Syed, MOBILE MARKETING MANAGER [address] [address] Meaghan Houser, PT 8 [place] [address] [email or web address] 08/22/2025 1:30 PM EST Office Visit [facility] Physical Therapy [address] [place] [address] Natalie Syed, [address] [address] Meaghan Houser, PT 8 [place] [address] 08/27/2025 11:15 AM EST Office Visit [facility] Therapy [address] [place] [address] Natalie Syed, MOBILE MARKETING MANAGER [address] [address] Meaghan Houser, PT 8 [place] [address] [email or web address] 08/29/2025 1:30 PM EST Office Visit [facility] [address] [place] [address] [place] [address] Natalie Syed, MOBILE MARKETING MANAGER [address] [address] Meaghan Houser, PT 8 [place] [address] 09/03/2025 11:15 AM EST Office Visit [facility] [address] [place] [address] Natalie Syed, MOBILE MARKETING MANAGER 15 [facility], 2nd [place] [address] Meaghan Houser, PT 8 [place] [address] 12/09/2025 12:30 PM EDT Office Visit [facility] [address] [place] [address] Natalie Syed, MOBILE MARKETING MANAGER 15 [facility], 2nd [place] [address] 12/18/2025 11:30 AM EDT Office Visit [facility] 22 [facility] 3rd Floor, [address] [place] [address] Angelic Cesar DNP 22 [facility], [address] [place] [address] 01/17/2026 10:30 AM EDT Telemedicine [facility] Epilepsy Service [address] [place] [address], 8th Floor, [address] [place] [address] Nancy Cardenas MD, MBBS [address] [phone] JUAN [email or web address] documented as of this encounter Visit Diagnoses Not on filedocumented in this encounter Additional Health Concerns Infection Onset Date Last Indicated Resolved Time CoV-Risk 07/20/2023 07/20/2023 07/31/2023 1:22 AM EST CoV-Risk Comment:Per note documentation 06/06/2024 06/06/2024 10:40 AM EST CoV-Risk 08/31/2024 08/31/2024 09/11/2024 1:23 AM EST documented as of this encounter Care Teams Production Stage Manager Relationship Specialty Start Date End Date Ailin Araujo MD [address] [place] [address] PCP - General Family Medicine 05/13/17 documented as of this encounter Additional Source Comments The information contained in this document represents components of the legal health record. It is not the complete legal health record.[facility]
--- OUTSIDE RECORDS SUMMARY | 2025-07-10 12:31 | XMS_ITS | Encounter Summary ---
Author Organization [facility] Address [address] [facility] [address] [place] [address] Phone Care Team Providers Care Associate Professor Of Library Science Name Role Phone Pcp, Not Required Primary [...] (Late st Contact Info) Description 04/05/2017 Telephone [facility]psy Service 55 [facility], 8th Floor, [address] [place] [address] Nancy Cardenas MD, MBBS [address] [phone] JUAN [email or web address] Information (I left a vm to call [...] Description 08/08/2025 1:30 PM EST Office Visit [facility] [address] [place] [address] [place] [address] Natalie Syed, [address] [address] Meaghan Houser, PT 8 [place] [address] [email or web address] 08/13/2025 11:15 AM EST Office Visit [facility] Physical Therapy [facility] [address] [place] [address] Natalie Syed, [address] [address] Meaghan Houser, PT 8 [place] [address] [email or web address] 08/15/2025 1:30 PM EST Office Visit [facility] Physical Therapy [facility] [address] [place] [address] Natalie Syed, [address] [address] [email or web address] Meaghan Houser, PT 8 [place] [address] [email or web address] 08/20/2025 11:15 AM EST Office Visit [facility] [address] [place] [address] Natalie Syedley, CLOCK SMITH [address] [address] [email or web address] Meaghan Houser, PT 8 [place] [address] 08/22/2025 1:30 PM EST Office Visit [facility] [address] [place] [address] KunalNatalie Meliza, [address] [address] [email or web address] Meaghan Hosuer, PT 8 [place] [address] [email or web address] 08/27/2025 11:15 AM EST Office Visit [facility] [address] [place] [address] KunalNatalie Meliaz, [address] [address] [email or web address] Meaghan Houser, PT 8 [place] [address] 08/29/2025 1:30 PM EST Office Visit [facility] [address] [place] [address] Natalie Syed, [facility] [address] [address] [email or web address] Meaghan Houser, PT 8 [place] [address] 09/03/2025 11:15 AM EST Office Visit [facility] [address] [place] [address] Natalie Syed, CLOCK SMITH [facility], 2nd [place] [address] [email or web address] Meaghan Houser, PT 8 [place] [address] 12/09/2025 12:30 PM EDT Office Visit [facility] [address] [place] [address] Natalie Syed, CLOCK SMITH 15 [facility], 2nd [place] [address] 12/18/2025 11:30 AM EDT Office Visit [facility] 22 [facility] 3rd Floor, [address] [place] [address] Angelic Cesar, NEAL 22 [facility], [address] [place] [address] 01/17/2026 10:30 AM EDT Telemedicine [facility] Service [address] [place] [address], 8th Floor, [address] [place] [address] Nancy Cardenas MD, MBBS [address] [place] [phone] JUAN [email or web address] documented as of this encounter Visit Diagnoses Not on filedocumented in this encounter Additional Health Concerns Infection Onset Date Last Indicated Resolved Time CoV-Risk 07/20/2023 07/20/2023 07/31/2023 1:22 AM EST CoV-Risk Comment:Per note documentation 06/06/2024 06/06/2024 10:40 AM EST CoV-Risk 08/31/2024 08/31/2024 09/11/2024 1:23 AM EST documented as of this encounter Care Teams Associate Professor Of Library Science Relationship Specialty Start Date End Date Pcp, Not Required PCP - General 12/31/16 05/12/17 Ailin Araujo MD [address] [place] [address] PCP - General Family Medicine 05/13/17 documented as of this encounter Additional Source Comments The information contained in this document represents components of the legal health record. It is not the complete legal health record.[facility]
--- OUTSIDE RECORDS SUMMARY | 2025-07-10 12:31 | XMS_ITS | Clinical Summary ---
Author Organization [employer] Address [address] [place] [address] 7t [place] [address] Care Team Providers Care Floor Space Allocator Name Role Phone Unavailable Primary Care Provider [...]
--- OUTSIDE RECORDS SUMMARY | 2025-07-10 12:31 | XMS_ITS | Encounter Summary ---
Author Organization [facility] Address [address] [place] [address] Phone Care Team Providers Care Biometric Fingerprinting Technician Name Role Phone Pcp, Not Required Primary Care Provider Ailin Middleton MD Primary Care Provider Encounter Details Date Type Department Care Team (Late st Contact Info) Description 03/25/2017 Telephone [facility] Epilepsy Service [address] [place] [address], 8th Floor, [address] [place] [address] Nancy Cardenas MD, MBBS 55 [facility] 150 [place] [phone] JUAN [email or web address] Social History Tobacco Use Types [...] Description 08/08/2025 1:30 PM EST Office Visit [facility] Therapy Clinic [address] [place] [address] [place] [address] Natalie Syed, [address] [address] Meaghan Houser, PT 8 [place] [address] 08/13/2025 11:15 AM EST Office Visit [facility] [address] [place] [address] [place] [address] Natalie Syed, [address] [address] Meaghan Houser, PT 8 [place] [address] 08/15/2025 1:30 PM EST Office Visit [facility] Physical Therapy [address] [place] [address] Natalie Syed, [address] [address] Meaghan Houser, PT 8 [place] [address] 08/20/2025 11:15 AM EST Office Visit [facility] Physical Therapy [address] [place] [address] Natalie Syed, [address] [address] [email or web address] Meaghan Houser, PT 8 [place] [address] 08/22/2025 1:30 PM EST Office Visit [facility] [address] [place] [address] Natalie Syed, [address] [address] Meaghan Houser, PT 8 [place] [address] 08/27/2025 11:15 AM EST Office Visit [facility] Physical Therapy [address] [place] [address] Natalie Syed, [address] [address] Meaghan Houser, PT 8 [place] [address] 08/29/2025 1:30 PM EST Office Visit [facility] Physical Therapy [address] [place] [address] Natalie Syed, [address] [address] Meaghan Houser, PT 8 [place] [address] 09/03/2025 11:15 AM EST Office Visit [facility] Physical Therapy [facility] [address] [place] [address] Natalie Syed, [address] [address] Meaghan Houser, PT 8 [place] [address] 12/09/2025 12:30 PM EDT Office Visit [facility] [address] [place] [address] Natalie Syed, BODY ARTIST 15 [facility], 2nd [place] [address] 12/18/2025 11:30 AM EDT Office Visit [facility] [address] 3rd Floor, [address] [place] [address] Angelic Cesar, NEAL 22 [facility], [address] [place] [address] 01/17/2026 10:30 AM EDT Telemedicine [facility] Service 55 [facility], 8th Floor, [address] [place] [address] Nancy Cardenas MD, MBBS 55 [facility] 720 [place] [phone] JUAN [email or web address] documented as of this encounter Visit Diagnoses Not on filedocumented in this encounter Additional Health Concerns Infection Onset Date Last Indicated Resolved Time CoV-Risk 07/20/2023 07/20/2023 07/31/2023 1:22 AM EST CoV-Risk Comment:Per note documentation 06/06/2024 06/06/2024 10:40 AM EST CoV-Risk 08/31/2024 08/31/2024 09/11/2024 1:23 AM EST documented as of this encounter Care Teams Biometric Fingerprinting Technician Relationship Specialty Start Date End Date Pcp, Not Required PCP - General 12/31/16 05/12/17 Ailin Araujo MD [address] [place] [address] PCP - General Family Medicine 05/13/17 documented as of this encounter Additional Source Comments The information contained in this document represents components of the legal health record. It is not the complete legal health record.[facility]
--- OUTSIDE RECORDS SUMMARY | 2025-07-10 12:31 | XMS_ITS | Encounter Summary ---
Author Organization [facility] Address [address] [facility] [address] [place] [address] Phone Care Team Providers Care Dustless Operator Name Role Phone Ailin Araujo MD Primary Care Provider Encounter Details Date Type Department Care Team (Late st Contact Info) Description 07/23/2022 Procedure Pass [facility], Ct Scan - [address] [address] Social History Tobacco Use Types Packs/Day Years [...] Description 08/08/2025 1:30 PM EST Office Visit [facility] [address] [place] [address] ElianNatalie little Meliza, BEER STILL RUNNER COMPOUNDER [address] [address] Meaghan Houser, PT 8 [place] [address] 08/13/2025 11:15 AM EST Office Visit [facility] [address] [place] [address] Yamilet Syedh Meliza, BEER STILL RUNNER COMPOUNDER [address] [address] Meaghan Houser, PT 8 [place] [address] 08/15/2025 1:30 PM EST Office Visit [facility] [address] [place] [address] ElianNatalie little Meliza, [facility] [address] [address] [email or web address] Meaghan Houser, PT 8 [place] [address] 08/20/2025 11:15 AM EST Office Visit [facility] [address] [place] [address] Natalie Syed, BEER STILL RUNNER COMPOUNDER [address] [address] Meaghan Houser, PT 8 [place] [address] 08/22/2025 1:30 PM EST Office Visit [facility] [address] [place] [address] Natalie Syed, BEER STILL RUNNER COMPOUNDER [address] [address] Meaghan Houser, PT 8 [place] [address] 08/27/2025 11:15 AM EST Office Visit [facility] [address] [place] [address] [place] [address] Natalie Syed, [address] [address] Meaghan Houser, PT 8 [place] [address] [email or web address] 08/29/2025 1:30 PM EST Office Visit [facility] [address] [place] [address] [place] [address] Natalie Syed, [address] [address] Meaghan Houser, PT 8 [place] [address] 09/03/2025 11:15 AM EST Office Visit [facility] [address] [place] [address] Natalie Syed, BEER STILL RUNNER COMPOUNDER [address] [address] Meaghan Houser, PT 8 [place] [address] [email or web address] 12/09/2025 12:30 PM EDT Office Visit [facility] [address] [place] [address] Natalie Syed FNP 15 [facility], 2nd [place] [address] [email or web address] 12/18/2025 11:30 AM EDT Office Visit [facility] [address] 3rd Floor, [address] [place] [address] Angelic Cesar DNP 22 [facility], [address] [place] [address] 01/17/2026 10:30 AM EDT Telemedicine [facility] [address] [place] [address], 8th Floor, [address] [place] [address] Nancy Cardenas MD, MBBS 55 [facility] 720 [place] [phone] JUAN [email or web address] documented as of this encounter Visit Diagnoses Not on filedocumented in this encounter Additional Health Concerns Infection Onset Date Last Indicated Resolved Time CoV-Risk 07/20/2023 07/20/2023 07/31/2023 1:22 AM EST CoV-Risk Comment:Per note documentation 06/06/2024 06/06/2024 10:40 AM EST CoV-Risk 08/31/2024 08/31/2024 09/11/2024 1:23 AM EST documented as of this encounter Care Teams Dustless Operator Relationship Specialty Start Date End Date Ailin Araujo MD [address] [place] [address] PCP - General Family Medicine 05/13/17 documented as of this encounter Additional Source Comments The information contained in this document represents components of the legal health record. It is not the complete legal health record.[facility]
--- OUTSIDE RECORDS SUMMARY | 2025-07-10 12:31 | XMS_ITS | Encounter Summary ---
Author Organization [facility] Address 399 [facility] [address] [place] [address] Phone Care Team Providers Care Toggle Press Folder And Feeder Name Role Phone Pcp, Not Required Primary Care Provider Ailin Middleton MD Primary Care Provider Encounter Details Date Type Department Care Team (Late Contact Info) Description 01/13/2017 Procedure Pass [facility] [address] [place] [address] Social History Tobacco Use Types Packs/Day Years [...] Visit [facility] [address] [place] [address] ElianNatalie little Meliza, ENGINEER FIRST ASSISTANT [address] [address] Meaghan Houser, PT 8 [place] [address] 08/13/2025 11:15 AM EST Office Visit [facility] [address] [place] [address] Yamilet Syedh Meliza, ENGINEER FIRST ASSISTANT [address] [address] Meaghan Houser, PT 8 [place] [address] 08/15/2025 1:30 PM EST Office Visit [facility] Physical Therapy [address] [place] [address] ElianNatalie little Meliza, [facility] [address] [address] [email or web address] Meaghan Houser, PT 8 [place] [address] 08/20/2025 11:15 AM EST Office Visit [facility] Physical Therapy [address] [place] [address] Natalie Syed, ENGINEER FIRST ASSISTANT [address] [address] Meaghan Houser, PT 8 [place] [address] 08/22/2025 1:30 PM EST Office Visit [facility] [address] [place] [address] Natalie Syed, ENGINEER FIRST ASSISTANT [address] [address] Meaghan Houser, PT 8 [place] [address] 08/27/2025 11:15 AM EST Office Visit [facility] [address] [place] [address] [place] [address] Natalie Syed, [address] [address] Meaghan Houser, PT 8 [place] [address] [email or web address] 08/29/2025 1:30 PM EST Office Visit [facility] [address] [place] [address] [place] [address] Natalie Syed, [address] [address] Meaghan Houser, PT 8 [place] [address] 09/03/2025 11:15 AM EST Office Visit [facility] [address] [place] [address] Natalie Syed, ENGINEER FIRST ASSISTANT [address] [address] Meaghan Houser, PT 8 [place] [address] [email or web address] 12/09/2025 12:30 PM EDT Office Visit [facility] [address] [place] [address] Natalie Syed FNP 15 [facility], 2nd [place] [address] [email or web address] 12/18/2025 11:30 AM EDT Office Visit [facility] [address] 3rd Floor, [address] [place] [address] Angelic Cesar DNP 22 [facility], [address] [place] [address] [email or web address] 01/17/2026 10:30 AM EDT Telemedicine [facility] [address] [place] [address], 8th Floor, [address] [place] [address] Nancy Cardenas MD, MBBS 55 [facility] 720 [place] [phone] JUAN [email or web address] documented as of this encounter Visit Diagnoses Not on filedocumented in this encounter Additional Health Concerns Infection Onset Date Last Indicated Resolved Time CoV-Risk 07/20/2023 07/20/2023 07/31/2023 1:22 AM EST CoV-Risk Comment:Per note documentation 06/06/2024 06/06/2024 10:40 AM EST CoV-Risk 08/31/2024 08/31/2024 09/11/2024 1:23 AM EST documented as of this encounter Care Teams Toggle Press Folder And Feeder Relationship Specialty Start Date End Date Pcp, Not Required PCP - General 12/31/16 05/12/17 Ailin Araujo MD [address] [place] [address] PCP - General Family Medicine 05/13/17 documented as of this encounter Additional Source Comments The information contained in this document represents components of the legal health record. It is not the complete legal health record.[facility]
--- OUTSIDE RECORDS SUMMARY | 2025-07-10 12:32 | XMS_ITS | Encounter Summary ---
Author Organization [facility] Address 399 [facility] [address] [place] [address] Phone Care Team Providers Care Retail Field Representative Name Role Phone Ailin Araujo MD Primary Care Provider Encounter Details Date Type Department Care Team (Late st Contact Info) Description 08/11/2022 Procedure Pass [facility], Ct Scan - [address] [address] Social History Tobacco Use Types Packs/Day Years [...] Description 08/08/2025 1:30 PM EST Office Visit [facility] [address] [place] [address] [place] [address] Natalie Syed, GLUE SPECIALTY SUPERVISOR [address] [place] [address] Meaghan Houser, PT 8 [place] [address] 08/13/2025 11:15 AM EST Office Visit [facility] Physical Therapy [address] [place] [address] Natalie Syed, [address] [address] Meaghan Houser, PT 8 [place] [address] 08/15/2025 1:30 PM EST Office Visit [facility] Physical Therapy [address] [place] [address] Natalie Syed, [address] [address] Meaghan Houser, PT 8 [place] [address] 08/20/2025 11:15 AM EST Office Visit [facility] [address] [place] [address] Natalie Syed, GLUE SPECIALTY SUPERVISOR [address] [place] [address] Meaghan Houser, PT 8 [place] [address] 08/22/2025 1:30 PM EST Office Visit [facility] [address] [place] [address] Natalie Syed, GLUE SPECIALTY SUPERVISOR [address] [address] Meaghan Houser, PT 8 [place] [address] 08/27/2025 11:15 AM EST Office Visit [facility] Physical Therapy [address] [place] [address] Natalie Syed, [address] [address] Meaghan Houser, PT 8 [place] [address] 08/29/2025 1:30 PM EST Office Visit [facility] Therapy [address] [place] [address] Natalie Syed, [address] [address] Meaghan Houser, PT 8 [place] [address] 09/03/2025 11:15 AM EST Office Visit [facility] [address] [place] [address] Natalie Syed, GLUE SPECIALTY SUPERVISOR [address] [address] Meaghna Houser, PT 8 [place] [address] 12/09/2025 12:30 PM EDT Office Visit [facility] [address] [place] [address] Natalie Syed, GLUE SPECIALTY SUPERVISOR 15 [facility], 2nd [place] [address] 12/18/2025 11:30 AM EDT Office Visit [facility] [address] 3rd Floor, [address] [place] [address] Angelic Cesar, NEAL 22 [facility], [address] [place] [address] 01/17/2026 10:30 AM EDT Telemedicine [facility]psy Service 55 [facility], 8th Floor, [address] [place] [address] Nancy Cardenas MD, MBBS [address] [address] JUAN [email or web address] documented as of this encounter Visit Diagnoses Not on filedocumented in this encounter Additional Health Concerns Infection Onset Date Last Indicated Resolved Time CoV-Risk 07/20/2023 07/20/2023 07/31/2023 1:22 AM EST CoV-Risk Comment:Per note documentation 06/06/2024 06/06/2024 10:40 AM EST CoV-Risk 08/31/2024 08/31/2024 09/11/2024 1:23 AM EST documented as of this encounter Care Teams Retail Field Representative Relationship Specialty Start Date End Date Ailin Araujo MD [address] [place] [address] PCP - General Family Medicine 05/13/17 documented as of this encounter Additional Source Comments The information contained in this document represents components of the legal health record. It is not the complete legal health record.[facility]
--- OUTSIDE RECORDS SUMMARY | 2025-07-10 12:32 | XMS_ITS | Encounter Summary ---
Author Organization [facility] Address 399 [facility] [address] [place] [address] Phone Care Team Providers Care Terminal Makeup Operator Name Role Phone Ailin Araujo MD Primary Care Provider Encounter Details Date Type Department Care Team (Late st Contact Info) Description 10/05/2021 Procedure Pass [facility], Ct Scan - [address] [address] Social History Tobacco Use Types Packs/Day Years [...] Description 08/08/2025 1:30 PM EST Office Visit [facility] [address] [place] [address] Natalie Syed FNP [address] [address] Meaghan Houser, PT 8 [place] [address] 08/13/2025 11:15 AM EST Office Visit [facility] [address] [place] [address] Natalie Syed, [address] [address] Meaghan Houser, PT 8 [place] [address] [email or web address] 08/15/2025 1:30 PM EST Office Visit [facility] Physical Therapy [address] [place] [address] Natalie Syed, [address] [address] [email or web address] Meaghan Houser, PT 8 [place] [address] [email or web address] 08/20/2025 11:15 AM EST Office Visit [facility] Physical Therapy [facility] [address] [place] [address] Natalie Syed, [address] [address] Meaghan Houser, PT 8 [place] [address] 08/22/2025 1:30 PM EST Office Visit [facility] [address] [place] [address] Natalie Syed, DUST COLLECTOR ORE CRUSHING [address] [address] Meaghan Houser, PT 8 [place] [address] [email or web address] 08/27/2025 11:15 AM EST Office Visit [facility] [address] [place] [address] KunalNatalie Meliza, DUST COLLECTOR ORE CRUSHING [address] [address] Meaghan Houser, PT 8 [place] [address] [email or web address] 08/29/2025 1:30 PM EST Office Visit [facility] [address] [place] [address] ElianNatalie little Meliza, [facility] [address] [address] Meaghan Houser, PT 8 [place] [address] [email or web address] 09/03/2025 11:15 AM EST Office Visit [facility] [address] [place] [address] Natalie Syed, DUST COLLECTOR ORE CRUSHING [address] [address] Meaghan Houser, PT 8 [place] [address] [email or web address] 12/09/2025 12:30 PM EDT Office Visit [facility]rology Clinic [address] [place] [address] Natalie Syed, DUST COLLECTOR ORE CRUSHING 15 [facility], 2nd [place] [address] 12/18/2025 11:30 AM EDT Office Visit [facility] [address] 3rd Floor, [address] [place] [address] Angelic Cesar DNP 22 [facility], [address] [place] [address] 01/17/2026 10:30 AM EDT Telemedicine [facility] 55 [facility], 8th Floor, [address] [place] [address] Nancy Cardenas MD, MBBS [address] [phone] JUAN [email or web address] documented as of this encounter Visit Diagnoses Not on filedocumented in this encounter Additional Health Concerns Infection Onset Date Last Indicated Resolved Time CoV-Risk 07/20/2023 07/20/2023 07/31/2023 1:22 AM EST CoV-Risk Comment:Per note documentation 06/06/2024 06/06/2024 10:40 AM EST CoV-Risk 08/31/2024 08/31/2024 09/11/2024 1:23 AM EST documented as of this encounter Care Teams Terminal Makeup Operator Relationship Specialty Start Date End Date Ailin Araujo MD [address] [place] [address] PCP - General Family Medicine 05/13/17 documented as of this encounter Additional Source Comments The information contained in this document represents components of the legal health record. It is not the complete legal health record.[facility]
--- OUTSIDE RECORDS SUMMARY | 2025-07-10 12:32 | XMS_ITS | Encounter Summary ---
Author Organization [facility] Address [address] [facility] [address] [place] [address] Phone Care Team Providers Care Director Of Labor And Delivery Name Role Phone Ailin Araujo MD Primary Care Provider Encounter Details Date Type Department Care Team (Late st Contact Info) Description 08/31/2024 Procedure Pass [facility], Ct Scan - [address] [address] Social History Tobacco Use Types Packs/Day Years [...] Visit [facility] [address] [place] [address] Natalie Syed Meliza, STAFF CYTOTECHNOLOGIST [address] [address] Meaghan Houser, PT 8 [place] [address] 08/13/2025 11:15 AM EST Office Visit [facility] Therapy Clinic [address] [place] [address] KunalNatalie Meliza, STAFF CYTOTECHNOLOGIST [address] [place] [address] [email or web address] Meaghan Houser, PT 8 [place] [address] 08/15/2025 1:30 PM EST Office Visit [facility] Therapy Clinic [address] [place] [address] ElianNatalie little Meliza, [address] [address] [email or web address] Meaghan Houser, PT 8 [place] [address] 08/20/2025 11:15 AM EST Office Visit [facility] [address] [place] [address] Natalie Syed, [facility] [address] [address] [email or web address] Meaghan Houser, PT 8 [place] [address] 08/22/2025 1:30 PM EST Office Visit [facility] [address] [place] [address] Natalie Syed, STAFF CYTOTECHNOLOGIST [address] [address] Meaghan Houser, PT 8 [place] [address] 08/27/2025 11:15 AM EST Office Visit [facility] Therapy [facility] [address] [place] [address] Natalie Syed, STAFF CYTOTECHNOLOGIST [address] [address] Meaghan Houser, PT 8 [place] [address] [email or web address] 08/29/2025 1:30 PM EST Office Visit [facility] Therapy Clinic [address] [place] [address] [place] [address] Natalie Syed, [facility] [address] [address] Meaghan Houser, PT 8 [place] [address] [email or web address] 09/03/2025 11:15 AM EST Office Visit [facility] [address] [place] [address] Natalie Syed, STAFF CYTOTECHNOLOGIST [address] [address] Meaghan Houser, PT 8 [place] [address] [email or web address] 12/09/2025 12:30 PM EDT Office Visit [facility]rology [facility] [address] [place] [address] Natalie Syed, STAFF CYTOTECHNOLOGIST [facility] 2nd [place] [address] [email or web address] 12/18/2025 11:30 AM EDT Office Visit [facility] [address] 3rd Floor, [address] [place] [address] Angelic Cesar DNP 22 [facility], [address] [place] [address] [email or web address] 01/17/2026 10:30 AM EDT Telemedicine [facility] Epilepsy Service 55 [facility], 8th Floor, [address] [place] [address] Nancy Cardenas MD, MBBS 55 [facility] 720 [place] [phone] JUAN [email or web address] documented as of this encounter Visit Diagnoses Not on filedocumented in this encounter Additional Health Concerns Infection Onset Date Last Indicated Resolved Time CoV-Risk 08/31/2024 08/31/2024 09/11/2024 1:23 AM EST documented as of this encounter Care Teams Director Of Labor And Delivery Relationship Specialty Start Date End Date Ailin Araujo MD [address] [place] [address] PCP - General Family Medicine 05/13/17 documented as of this encounter Additional Source Comments The information contained in this document represents components of the legal health record. It is not the complete legal health record.[facility]
--- OUTSIDE RECORDS SUMMARY | 2025-07-10 12:32 | XMS_ITS | Encounter Summary ---
Author Organization [facility] Address [address] [place] [address] Phone Care Team Providers Care Personal Injury Legal Assistant Name Role Phone Ailin Araujo MD Primary Care Provider [phone] Encounter Details Date Type Department Care Team ([facility] st Contact Info) Description 04/15/2022 Telephone [facility] [address] [place] [phone] Marbin Dowd MD [address] [place] [address] Social History Tobacco Use Types Packs/Day Years Used Date Smoking Tobacco: Former Cigarettes 1 Q uit: 09/02/2013 Smokeless Tobacco: Former Comments:Smoking [...] in March due to being [place]. A follow up is already scheduled for her. documented in this encounter Plan of Treatment Not on file documented as of this encounter Visit Diagnoses Not on filedocumented in this encounter Care Teams Personal Injury Legal Assistant Relationship Specialty Start Date End Date Ailin Araujo MD [address] [place] [address] PCP - General 07/21/20 documented as of this encounter
--- OUTSIDE RECORDS SUMMARY | 2025-07-10 12:32 | XMS_ITS | Clinical Summary ---
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 Adams at [facility] Immunizations Immunization Administration Dates Next Due H1N1 [...] 1 Q uit: 09/02/2013 Smokeless Tobacco: Former Tobacco [...] 04/03/2015 04/03/2014, 02/23/2000 Influenza Vaccine (#1) 2025 2, 06/18/2020, 05/06/2003 Pneumococcal Vaccine: Peds ( 0 to 5 Years) and At-Risk Patients (6 to 49 Years) Discontinued 04/03/2014, 02/23/2000 Insurance Medicare Medicaid [place] Medicaid [place] Medicare Care Teams Medical Technical Writer Relationship Specialty Start Date End Date Ailin Araujo MD [address] [place] [address] EVANGELINAAlejandra [place] PCP - General 07/21/20
--- OUTSIDE RECORDS SUMMARY | 2025-07-10 12:32 | XMS_ITS | Encounter Summary ---
Author Organization [facility] Address [address] [facility] [address] [place] [address] Phone Care Team Providers Care Upholstery Cleaner Name Role Phone Ailin Araujo MD Primary Care Provider Encounter Details Date Type Department Care Team (Late st Contact Info) Description 08/02/2022 Procedure Pass [facility], Ct Scan - [address] [address] Social History Tobacco Use Types Packs/Day Years [...] Description 08/08/2025 1:30 PM EST Office Visit [facility] [address] [place] [address] [place] [address] Natalie Syed, PRODUCTION LINE MANAGER [address] [place] [address] [email or web address] Meaghan Houser, PT 8 [place] [address] [email or web address] 08/13/2025 11:15 AM EST Office Visit [facility] Physical Therapy [address] [place] [address] Natalie Syed, [address] [address] [email or web address] Meaghan Houser, PT 8 [place] [address] [email or web address] 08/15/2025 1:30 PM EST Office Visit [facility] Physical Therapy [address] [place] [address] Natalie Syed, [address] [address] [email or web address] Meaghan Houser, PT 8 [place] [address] [email or web address] 08/20/2025 11:15 AM EST Office Visit [facility] [address] [place] [address] Natalie Syed, PRODUCTION LINE MANAGER [address] [place] [address] [email or web address] Meaghan Houser, PT 8 [place] [address] [email or web address] 08/22/2025 1:30 PM EST Office Visit [facility] [address] [place] [address] Natalie Syed, PRODUCTION LINE MANAGER [address] [address] Meaghan Houser, PT 8 [place] [address] [email or web address] 08/27/2025 11:15 AM EST Office Visit [facility] Physical Therapy [address] [place] [address] Natalie Syed, [address] [address] [email or web address] Meaghan Houser, PT 8 [place] [address] [email or web address] 08/29/2025 1:30 PM EST Office Visit [facility] Physical Therapy [address] [place] [address] Natalie Syed, [address] [address] Meaghan Houser, PT 8 [place] [address] 09/03/2025 11:15 AM EST Office Visit [facility] [address] [place] [address] Natalie Syed, PRODUCTION LINE MANAGER [address] [address] Meaghan Houser, PT 8 [place] [address] 12/09/2025 12:30 PM EDT Office Visit [facility] [address] [place] [address] Natalie Syed, PRODUCTION LINE MANAGER 15 [facility], 2nd [place] [address] 12/18/2025 11:30 AM EDT Office Visit [facility] [address] 3rd Floor, [address] [place] [address] Angelic Cesar, NEAL 22 [facility], [address] [place] [address] 01/17/2026 10:30 AM EDT Telemedicine [facility] Epilepsy Service 55 [facility], 8th Floor, [address] [place] [address] Nancy Cardenas MD, MBBS [address] [address] JUAN [email or web address] documented as of this encounter Visit Diagnoses Not on filedocumented in this encounter Additional Health Concerns Infection Onset Date Last Indicated Resolved Time CoV-Risk 07/20/2023 07/20/2023 07/31/2023 1:22 AM EST CoV-Risk Comment:Per note documentation 06/06/2024 06/06/2024 10:40 AM EST CoV-Risk 08/31/2024 08/31/2024 09/11/2024 1:23 AM EST documented as of this encounter Care Teams Upholstery Cleaner Relationship Specialty Start Date End Date Ailin Araujo MD [address] [place] [address] PCP - General Family Medicine 05/13/17 documented as of this encounter Additional Source Comments The information contained in this document represents components of the legal health record. It is not the complete legal health record.[facility]
--- OUTSIDE RECORDS SUMMARY | 2025-07-10 12:32 | XMS_ITS | Encounter Summary ---
Author Organization [facility] Address [address] [place] [address] Phone Care Team Providers Care Cryptologic Support Specialist Name Role Phone Ailin Araujo MD Primary Care Provider Encounter Details Date Type Department Care Team (Late st Contact Info) Description 06/06/2024 Procedure Pass [facility], Ct Scan - [address] [address] Social History Tobacco Use Types Packs/Day Years [...] Visit [facility] [address] [place] [address] Natalie Syed Meliza, FORMING PRESS OPERATOR [address] [address] Meaghan Houser, PT 8 [place] [address] 08/13/2025 11:15 AM EST Office Visit [facility] [address] [place] [address] KunalNatalie Meliza, FORMING PRESS OPERATOR [address] [place] [address] [email or web address] Meaghan Houser, PT 8 [place] [address] 08/15/2025 1:30 PM EST Office Visit [facility] [address] [place] [address] ElianNatalie little Meliza, [address] [address] [email or web address] Maeghan Houser, PT 8 [place] [address] 08/20/2025 11:15 AM EST Office Visit [facility] [address] [place] [address] Natalie Syed, [facility] [address] [address] [email or web address] Meaghan Houser, PT 8 [place] [address] 08/22/2025 1:30 PM EST Office Visit [facility] [address] [place] [address] Natalie Syed, FORMING PRESS OPERATOR [address] [address] Meaghan Houser, PT 8 [place] [address] 08/27/2025 11:15 AM EST Office Visit [facility] [address] [place] [address] Natalie Syed, FORMING PRESS OPERATOR [address] [address] Meaghan Houser, PT 8 [place] [address] [email or web address] 08/29/2025 1:30 PM EST Office Visit [facility] [address] [place] [address] [place] [address] Natalie Syed, [facility] [address] [address] Meaghan Houser, PT 8 [place] [address] [email or web address] 09/03/2025 11:15 AM EST Office Visit [facility] [address] [place] [address] Natalie Syed, FORMING PRESS OPERATOR [address] [address] Meaghan Houser, PT 8 [place] [address] [email or web address] 12/09/2025 12:30 PM EDT Office Visit [facility]rology Clinic [address] [place] [address] Natalie Syed, FORMING PRESS OPERATOR [address], 2nd [place] [address] [email or web address] 12/18/2025 11:30 AM EDT Office Visit [facility] [address] 3rd Floor, [address] [place] [address] Angelic Cesar DNP 22 [facility], [address] [place] [address] [email or web address] 01/17/2026 10:30 AM EDT Telemedicine [facility] Epilepsy Service 55 [facility], 8th Floor, [address] [place] [address] Nancy Cardenas MD, MBBS 55 [facility] [address] [place] [phone] JUAN [email or web address] documented as of this encounter Visit Diagnoses Not on filedocumented in this encounter Additional Health Concerns Infection Onset Date Last Indicated Resolved Time CoV-Risk Comment:Per note documentation 06/06/2024 06/06/2024 10:40 AM EST CoV-Risk 08/31/2024 08/31/2024 09/11/2024 1:23 AM EST documented as of this encounter Care Teams Cryptologic Support Specialist Relationship Specialty Start Date End Date Ailin Araujo MD [address] [place] [address] PCP - General Family Medicine 05/13/17 documented as of this encounter Additional Source Comments The information contained in this document represents components of the legal health record. It is not the complete legal health record.[facility]
--- OUTSIDE RECORDS SUMMARY | 2025-07-10 12:32 | XMS_ITS | Encounter Summary ---
Author Organization [facility] Address [address] [facility] [address] [place] [address] Phone Care Team Providers Care Regulatory Analyst Name Role Phone Ailin Araujo MD Primary Care Provider Encounter Details Date Type Department Care Team (Late st Contact Info) Description 08/11/2022 Procedure Pass [facility], Ct Scan - [address] [address] Social History Tobacco Use Types Packs/Day Years [...] Description 08/08/2025 1:30 PM EST Office Visit [facility] [address] [place] [address] [place] [address] Natalie Syed, TALENT BUYER [address] [place] [address] Meaghan Houser, PT [address] [place] [address] 08/13/2025 11:15 AM EST Office Visit [facility] Physical Therapy [address] [place] [address] Natalie Syed, [address] [address] Meaghan Houser, PT [address] [place] [address] 08/15/2025 1:30 PM EST Office Visit [facility] Physical Therapy [address] [place] [address] Natalie Syed, [address] [address] Meaghan Houser, PT [address] [place] [address] 08/20/2025 11:15 AM EST Office Visit [facility] [address] [place] [address] Natalie Syed, TALENT BUYER [address] [place] [address] Meaghan Houser, PT [address] [place] [address] 08/22/2025 1:30 PM EST Office Visit [facility] [address] [place] [address] Natalie Syed, TALENT BUYER [address] [address] Meaghan Houser, PT [address] [place] [address] 08/27/2025 11:15 AM EST Office Visit [facility] Physical Therapy [address] [place] [address] Natalie Syed, [address] [address] Meaghan Houser, PT [address] [place] [address] 08/29/2025 1:30 PM EST Office Visit [facility] Physical Therapy [address] [place] [address] Natalie Syed, [address] [address] Meaghan Houser, PT [address] [place] [address] 09/03/2025 11:15 AM EST Office Visit [facility] [address] [place] [address] Natalie Syed, TALENT BUYER [address] [address] Meaghan Houser, PT [address] [place] [address] 12/09/2025 12:30 PM EDT Office Visit [facility] Neurology Clinic [address] [place] [address] Natalie Syed, TALENT BUYER 15 [facility], 2nd [place] [address] 12/18/2025 11:30 AM EDT Office Visit [facility] [address] 3rd Floor, [address] [place] [address] Angelic Cesar, NEAL 22 [facility], [address] [place] [address] 01/17/2026 10:30 AM EDT Telemedicine [facility] Ep[facility] Service 55 [facility], 8th Floor, [address] [place] [address] Nancy Cardenas MD, MBBS [address] [phone] JUAN [email or web address] documented as of this encounter Visit Diagnoses Not on filedocumented in this encounter Additional Health Concerns Infection Onset Date Last Indicated Resolved Time CoV-Risk 07/20/2023 07/20/2023 07/31/2023 1:22 AM EST CoV-Risk Comment:Per note documentation 06/06/2024 06/06/2024 10:40 AM EST CoV-Risk 08/31/2024 08/31/2024 09/11/2024 1:23 AM EST documented as of this encounter Care Teams Regulatory Analyst Relationship Specialty Start Date End Date Ailin Araujo MD [address] [place] [address] PCP - General Family Medicine 05/13/17 documented as of this encounter Additional Source Comments The information contained in this document represents components of the legal health record. It is not the complete legal health record.[facility]
--- OUTSIDE RECORDS SUMMARY | 2025-07-10 12:32 | XMS_ITS | Encounter Summary ---
Author Organization [facility] Address [address] [place] [address] Phone Care Team Providers Care Antichecking Iron Worker Name Role Phone Ailin Araujo MD Primary Care Provider Encounter Details Date Type Department Care Team (Late st Contact Info) Description 08/31/2024 Procedure Pass [facility], Ct Scan - [address] [address] Social History Tobacco Use Types Packs/Day Years [...] Visit [facility] [address] [place] [address] Natalie Syed Meliza, ALLIED HEALTH TEACHER [address] [address] Meaghan Houser, PT 8 [place] [address] 08/13/2025 11:15 AM EST Office Visit [facility] [address] [place] [address] KunalNatalie Meliza, ALLIED HEALTH TEACHER [address] [place] [address] [email or web address] Meaghan Houser, PT 8 [place] [address] 08/15/2025 1:30 PM EST Office Visit [facility] Therapy [facility] [address] [place] [address] ElianNatalie little Meliza, [address] [address] [email or web address] Meaghan Houser, PT 8 [place] [address] 08/20/2025 11:15 AM EST Office Visit [facility] Therapy [facility] [address] [place] [address] Natalie Syed, [facility] [address] [address] [email or web address] Meaghan Houser, PT 8 [place] [address] 08/22/2025 1:30 PM EST Office Visit [facility] Physical Therapy Clinic [address] [place] [address] Natalie Syed, ALLIED HEALTH TEACHER [address] [address] Meaghan Houser, PT 8 [place] [address] 08/27/2025 11:15 AM EST Office Visit [facility] Physical Therapy Clinic [address] [place] [address] Natalie Syed, ALLIED HEALTH TEACHER [address] [address] Meaghan Houser, PT 8 [place] [address] [email or web address] 08/29/2025 1:30 PM EST Office Visit [facility] Therapy Clinic [address] [place] [address] [place] [address] Natalie Syed, [facility] [address] [address] Meaghan Houser, PT 8 [place] [address] [email or web address] 09/03/2025 11:15 AM EST Office Visit [facility] [address] [place] [address] Natalie Syed, ALLIED HEALTH TEACHER [address] [address] Meaghan Houser, PT 8 [place] [address] [email or web address] 12/09/2025 12:30 PM EDT Office Visit [facility]rology [facility] [address] [place] [address] Natalie Seyd, ALLIED HEALTH TEACHER [facility] 2nd [place] [address] [email or web address] 12/18/2025 11:30 AM EDT Office Visit [facility] [address] 3rd Floor, [address] [place] [address] Angelic Cesar DNP 22 [facility], [address] [place] [address] [email or web address] 01/17/2026 10:30 AM EDT Telemedicine [facility] Epilepsy Service 55 [facility], 8th Floor, [address] [place] [address] Nancy Cardenas MD, MBBS 55 [facility] [address] [place] [phone] JUAN [email or web address] documented as of this encounter Visit Diagnoses Not on filedocumented in this encounter Additional Health Concerns Infection Onset Date Last Indicated Resolved Time CoV-Risk 08/31/2024 08/31/2024 09/11/2024 1:23 AM EST documented as of this encounter Care Teams Antichecking Iron Worker Relationship Specialty Start Date End Date Ailin Araujo MD [address] [place] [address] PCP - General Family Medicine 05/13/17 documented as of this encounter Additional Source Comments The information contained in this document represents components of the legal health record. It is not the complete legal health record.[facility]
--- OUTSIDE RECORDS SUMMARY | 2025-07-10 12:32 | XMS_ITS | Encounter Summary ---
Author Organization [facility] Address [address] [facility] [address] [place] [address] Phone Care Team Providers Care Presser Hand Name Role Phone Ailin Araujo MD Primary Care Provider Encounter Details Date Type Department Care Team (Late st Contact Info) Description 08/02/2022 Procedure Pass [facility], Ct Scan - [address] [address] Social History Tobacco Use Types Packs/Day Years [...] Description 08/08/2025 1:30 PM EST Office Visit [facility] Physical Therapy Clinic [address] [place] [address] [place] [address] Natalie Syed, DESKTOP SUPPORT SPECIALIST [address] [place] [address] Meaghan Houser, PT 8 [place] [address] 08/13/2025 11:15 AM EST Office Visit [facility] Physical Therapy [address] [place] [address] Natalie Syed, [address] [address] Meaghan Houser, PT 8 [place] [address] 08/15/2025 1:30 PM EST Office Visit [facility] Physical Therapy [address] [place] [address] Natalie Syed, [address] [address] Meaghan Houser, PT 8 [place] [address] 08/20/2025 11:15 AM EST Office Visit [facility] Physical Therapy Clinic [address] [place] [address] Natalie Syed, DESKTOP SUPPORT SPECIALIST [address] [place] [address] Meaghan Houser, PT 8 [place] [address] 08/22/2025 1:30 PM EST Office Visit [facility] Physical Therapy Clinic [address] [place] [address] Natalie Syed, DESKTOP SUPPORT SPECIALIST [address] [address] Meaghan Houser, PT 8 [place] [address] 08/27/2025 11:15 AM EST Office Visit [facility] Physical Therapy [address] [place] [address] Natalie Syed, [address] [address] Meaghan Houser, PT 8 [place] [address] 08/29/2025 1:30 PM EST Office Visit [facility] Physical Therapy [address] [place] [address] Natalie Syed, [address] [address] Meaghan Houser, PT 8 [place] [address] 09/03/2025 11:15 AM EST Office Visit [facility] Physical Therapy Clinic [address] [place] [address] Natalie Syed, DESKTOP SUPPORT SPECIALIST [address] [address] Meaghan Houser, PT 8 [place] [address] 12/09/2025 12:30 PM EDT Office Visit [facility] Neurology Clinic [address] [place] [address] Natalie Syed, DESKTOP SUPPORT SPECIALIST 15 [facility], 2nd [place] [address] 12/18/2025 11:30 AM EDT Office Visit [facility] [address] 3rd Floor, [address] [place] [address] Angelic Cesar, NEAL 22 [facility], [address] [place] [address] 01/17/2026 10:30 AM EDT Telemedicine [facility] Epilepsy Service 55 [facility], 8th Floor, [address] [place] [address] Nancy Cardenas MD, MBBS [address] [address] JUAN [email or web address] documented as of this encounter Visit Diagnoses Not on filedocumented in this encounter Additional Health Concerns Infection Onset Date Last Indicated Resolved Time CoV-Risk 07/20/2023 07/20/2023 07/31/2023 1:22 AM EST CoV-Risk Comment:Per note documentation 06/06/2024 06/06/2024 10:40 AM EST CoV-Risk 08/31/2024 08/31/2024 09/11/2024 1:23 AM EST documented as of this encounter Care Teams Presser Hand Relationship Specialty Start Date End Date Ailin Araujo MD [address] [place] [address] PCP - General Family Medicine 05/13/17 documented as of this encounter Additional Source Comments The information contained in this document represents components of the legal health record. It is not the complete legal health record.[facility]
--- OUTSIDE RECORDS SUMMARY | 2025-07-10 12:32 | XMS_ITS | Encounter Summary ---
Author Organization [facility] Address [address] [place] [address] Phone Care Team Providers Care Risk Investigator Name Role Phone Ailin Araujo MD Primary Care Provider Encounter Details Date Type Department Care Team (Late st Contact Info) Description 06/18/2024 Telephone [facility] [address] [place] [address], 8th Floor, [address] [place] [address] Yadi Larry MD [address] [place] [address] [address]35 [place] [address] [email or web address] Social History Tobacco Use Types Packs/Day Years [...] Description 08/08/2025 1:30 PM EST Office Visit [facility] [address] [place] [address] Natalie Syed, REFRIGERATION ENGINEERING TEACHER [address] [place] [phone] [email or web address] Meaghan Houser, PT 8 [place] [address] [email or web address] 08/13/2025 11:15 AM EST Office Visit [facility] [address] [place] [address] Natalie Syed, REFRIGERATION ENGINEERING TEACHER [address] [place] [phone] [email or web address] Meaghan Houser, PT 8 [place] [address] [email or web address] 08/15/2025 1:30 PM EST Office Visit [facility] Physical Therapy [facility] [address] [place] [address] Natalie Syed, [address] [address] [email or web address] Meaghan Houser, PT 8 [place] [address] [email or web address] 08/20/2025 11:15 AM EST Office Visit [facility] [address] [place] [address] Natalie Syed, REFRIGERATION ENGINEERING TEACHER [address] [place] [phone] [email or web address] Meaghan Houser, PT 8 [place] [address] [email or web address] 08/22/2025 1:30 PM EST Office Visit [facility] [address] [place] [address] Natalie Syed, REFRIGERATION ENGINEERING TEACHER [address] [address] Meaghan Houser, PT 8 [place] [address] [email or web address] 08/27/2025 11:15 AM EST Office Visit [facility] Physical Therapy [address] [address] Natalie Syed, [address] [address] Meaghan Houser, PT 8 [place] [address] [email or web address] 08/29/2025 1:30 PM EST Office Visit [facility] Physical Therapy [address] [place] [address] Natalie Syed, REFRIGERATION ENGINEERING TEACHER [address] [address] Meaghan Houser, PT 8 [place] [address] [email or web address] 09/03/2025 11:15 AM EST Office Visit [facility] Physical Therapy [facility] 8 [place] [address] Natalie Syed, REFRIGERATION ENGINEERING TEACHER [address] [address] Meaghan Houser, PT 8 [place] [address] 12/09/2025 12:30 PM EDT Office Visit [facility] Neurology Clinic [address] [place] [address] Natalie Syed, REFRIGERATION ENGINEERING TEACHER 15 [facility], 2nd [place] [address] 12/18/2025 11:30 AM EDT Office Visit [facility] [address] 3rd Floor, [address] [place] [address] Angelic Cesar DNP 22 [facility], [address] [place] [address] 01/17/2026 10:30 AM EDT Telemedicine [facility] Epilepsy Service [address] [place] [address], 8th Floor, [address] [place] [address] Nancy Cardenas MD, MBBS [address] [phone] JUAN [email or web address] documented as of this encounter Visit Diagnoses Not on filedocumented in this encounter Additional Health Concerns Infection Onset Date Last Indicated Resolved Time CoV-Risk 08/31/2024 08/31/2024 09/11/2024 1:23 AM EST documented as of this encounter Care Teams Risk Investigator Relationship Specialty Start Date End Date Ailin Araujo MD [address] [place] [address] PCP - General Family Medicine 05/13/17 documented as of this encounter Additional Source Comments The information contained in this document represents components of the legal health record. It is not the complete legal health record.[facility]
--- OUTSIDE RECORDS SUMMARY | 2025-07-10 12:32 | XMS_ITS | Encounter Summary ---
Author Organization [facility] Address [address] [place] [address] Phone Care Team Providers Care Cheese Sprayer Name Role Phone Ailin Araujo MD Primary Care Provider Encounter Details Date Type Department Care Team (Late st Contact Info) Description 08/31/2024 Procedure Pass [facility], Ct Scan - [address] [address] Social History Tobacco Use Types Packs/Day Years [...] Visit [facility] [address] [place] [address] Natalie Syed Meliza, SODA TESTER [address] [address] Meaghan Houser, PT 8 [place] [address] 08/13/2025 11:15 AM EST Office Visit [facility] Physical Therapy Clinic [address] [place] [address] KunalNatalie Meliza, SODA TESTER [address] [place] [address] [email or web address] Meaghan Houser, PT 8 [place] [address] 08/15/2025 1:30 PM EST Office Visit [facility] Physical Therapy Clinic [address] [place] [address] ElianNatalie little Meliza, [address] [address] [email or web address] Meaghan Houser, PT 8 [place] [address] 08/20/2025 11:15 AM EST Office Visit [facility] Physical Therapy Clinic [address] [place] [address] Natalie Syed, [facility] [address] [address] [email or web address] Meaghan Houser, PT 8 [place] [address] 08/22/2025 1:30 PM EST Office Visit [facility] Physical Therapy Clinic [address] [place] [address] Natalie Syed, SODA TESTER [address] [address] Meaghan Houser, PT 8 [place] [address] 08/27/2025 11:15 AM EST Office Visit [facility] Physical Therapy Clinic [address] [place] [address] Natalie Syed, SODA TESTER [address] [address] Meaghan Houser, PT 8 [place] [address] 08/29/2025 1:30 PM EST Office Visit [facility] Physical Therapy Clinic [address] [place] [address] [place] [address] Natalie Syed, [facility] [address] [address] Meaghan Houser, PT 8 [place] [address] 09/03/2025 11:15 AM EST Office Visit [facility] Physical Therapy Clinic [address] [place] [address] Natalie Syed, SODA TESTER [address] [address] Meaghan Houser, PT 8 [place] [address] 12/09/2025 12:30 PM EDT Office Visit [facility] Neurology Clinic [address] [place] [address] Natalie Syed, SODA TESTER [facility] 2nd [place] [address] [email or web address] 12/18/2025 11:30 AM EDT Office Visit [facility] [address] 3rd Floor, [address] [place] [address] Angelic Cesar DNP 22 [facility], [address] [place] [address] [email or web address] 01/17/2026 10:30 AM EDT Telemedicine [facility] Epilepsy Service 55 [facility], 8th Floor, [address] [place] [address] Nancy Cardenas MD, MBBS 55 [facility] [address] [place] [phone] JUAN [email or web address] documented as of this encounter Visit Diagnoses Not on filedocumented in this encounter Additional Health Concerns Infection Onset Date Last Indicated Resolved Time CoV-Risk 08/31/2024 08/31/2024 09/11/2024 1:23 AM EST documented as of this encounter Care Teams Cheese Sprayer Relationship Specialty Start Date End Date Ailin Araujo MD [address] [place] [address] PCP - General Family Medicine 05/13/17 documented as of this encounter Additional Source Comments The information contained in this document represents components of the legal health record. It is not the complete legal health record.[facility]
--- OUTSIDE RECORDS SUMMARY | 2025-07-10 12:32 | XMS_ITS | Encounter Summary ---
Author Organization [facility] Address [address] [place] [address] Phone Care Team Providers Care Guitar Instructor Name Role Phone Ailin Araujo MD Primary Care Provider Encounter Details Date Type Department Care Team (Late st Contact Info) Description 07/29/2022 Ancillary Orders [facility], X-Ray - [facility] [address] [place] [address] Nicolas Arechiga MD [address] [place] [phone] [email or web address] Pain in thoracic spine; Low back pain, [...] Description 08/08/2025 1:30 PM EST Office Visit [facility] Physical Therapy Clinic [address] [place] [address] [place] [address] Natalie Syed, SURVEY CHIEF [address] [address] Meaghan Houser, PT 8 [place] [address] [email or web address] 08/13/2025 11:15 AM EST Office Visit [facility] Physical Therapy Clinic [address] [place] [address] [place] [address] Natalie Syed, [facility] [address] [address] Meaghan Houser, PT 8 [place] [address] [email or web address] 08/15/2025 1:30 PM EST Office Visit [facility] Physical Therapy Clinic [address] [place] [address] Natalie Syed, SURVEY CHIEF [address] [address] [email or web address] Meaghan Houser, PT 8 [place] [address] [email or web address] 08/20/2025 11:15 AM EST Office Visit [facility] Physical Therapy Clinic [address] [place] [address] Natalie Syed, SURVEY CHIEF [address] [address] Meaghan Houser, PT 8 [place] [address] 08/22/2025 1:30 PM EST Office Visit [facility] Physical Therapy Clinic [address] [place] [address] Natalie Syed, SURVEY CHIEF [address] [place] [address] Meaghan Houser, PT 8 [place] [address] 08/27/2025 11:15 AM EST Office Visit [facility] Physical Therapy Clinic [address] [place] [address] [place] [address] Natalie Syed, [address] [address] Meaghan Houser, PT 8 [place] [address] 08/29/2025 1:30 PM EST Office Visit [facility] Physical Therapy Clinic [address] [place] [address] Natalie Syed, SURVEY CHIEF [address] [address] Meaghan Houser, PT 8 [place] [address] 09/03/2025 11:15 AM EST Office Visit [facility] [address] [place] [address] Natalie Syed, NATA 15 [facility], 2nd [place] [address] Meaghan Houser, PT 8 [place] [address] 12/09/2025 12:30 PM EDT Office Visit [facility] Neurology Clinic [address] [place] [address] Natalie Syed, NATA 15 [facility], [address] [place] [address] 12/18/2025 11:30 AM EDT Office Visit [facility] 22 [facility] 3rd Floor, [address] [place] [address] Angelic Cesar DNP 22 [facility], [address] [place] [address] 01/17/2026 10:30 AM EDT Telemedicine [facility] Service [address] [place] [address], 8th Floor, [address] [place] [address] Nancy Cardenas MD, MBBS [address] [place] [phone] JUAN [email or web address] documented as of this encounter Results * [...] abnormality. Upper thoracic discogenic degenerative changes. us Nicolas Arechiga MD IMG XR SPINE [...] documented as of this encounter Care Teams Guitar Instructor Relationship Specialty Start Date End Date Ailin Araujo MD [address] [place] [address] PCP - General Family Medicine 05/13/17 documented as of this encounter Additional Source Comments The information contained in this document represents components of the legal health record. It is not the complete legal health record.[facility]
--- OUTSIDE RECORDS SUMMARY | 2025-07-10 12:33 | XMS_ITS | Encounter Summary ---
Author Organization [facility] Address [address] [facility] [address] [place] [address] Phone Care Team Providers Care Braided Band Assembler Name Role Phone Ailin Araujo MD Primary Care Provider Encounter Details Date Type Department Care Team (Late st Contact Info) Description 05/08/2022 Procedure Pass [address] [address] Social History Tobacco Use Types Packs/Day Years [...] Description 08/08/2025 1:30 PM EST Office Visit [facility] Physical Therapy Clinic [address] [place] [address] Elianens Natalie Meliza, ENERGY AND CONSERVATION TECHNICIAN [address] [address] Meaghan Houser, PT 8 [place] [address] 08/13/2025 11:15 AM EST Office Visit [facility] Physical Therapy Clinic [address] [place] [address] Natalie Syed, [facility] [address] [address] Meaghan Houser, PT 8 [place] [address] 08/15/2025 1:30 PM EST Office Visit [facility] Physical Therapy Clinic [address] [place] [address] [place] [address] ElianNatalie little Meliza, [facility] [address] [address] [email or web address] Meaghan Houser, PT 8 [place] [address] 08/20/2025 11:15 AM EST Office Visit [facility] Physical Therapy Clinic [address] [place] [address] Natalie Syed, [facility] [address] [address] Meaghan Houser, PT 8 [place] [address] 08/22/2025 1:30 PM EST Office Visit [facility] Physical Therapy Clinic [address] [place] [address] Natalie Syed, ENERGY AND CONSERVATION TECHNICIAN [address] [address] Meaghan Houser, PT 8 [place] [address] 08/27/2025 11:15 AM EST Office Visit [facility] Physical Therapy Clinic [address] [place] [address] [place] [address] Natalie Syed, [address] [address] Meaghan Houser, PT 8 [place] [address] 08/29/2025 1:30 PM EST Office Visit [facility] Physical Therapy [address] [place] [address] Natlaie Syed, [address] [address] Meaghan Houser, PT 8 [place] [address] 09/03/2025 11:15 AM EST Office Visit [facility] Physical Therapy Clinic [address] [place] [address] [place] [address] Natalie Syed, [address] [address] Meaghan Houesr, PT 8 [place] [address] 12/09/2025 12:30 PM EDT Office Visit [facility] Neurology Clinic [address] [place] [address] Natalie Syed FNP [facility] 2nd [place] [address] [email or web address] 12/18/2025 11:30 AM EDT Office Visit [facility] [address] 3rd Floor, [address] [place] [address] Angelic Cesar DNP 22 [facility], [address] [place] [address] 01/17/2026 10:30 AM EDT Telemedicine [facility] Service [address] [place] [address], 8th Floor, [address] [place] [address] Nancy Cardenas MD, MBBS 55 [facility] 720 [place] [phone] JUAN [email or web address] documented as of this encounter Visit Diagnoses Not on filedocumented in this encounter Additional Health Concerns Infection Onset Date Last Indicated Resolved Time CoV-Risk 07/20/2023 07/20/2023 07/31/2023 1:22 AM EST CoV-Risk Comment:Per note documentation 06/06/2024 06/06/2024 10:40 AM EST CoV-Risk 08/31/2024 08/31/2024 09/11/2024 1:23 AM EST documented as of this encounter Care Teams Braided Band Assembler Relationship Specialty Start Date End Date Ailin Araujo MD [address] [place] [address] PCP - General Family Medicine 05/13/17 documented as of this encounter Additional Source Comments The information contained in this document represents components of the legal health record. It is not the complete legal health record.[facility]
--- OUTSIDE RECORDS SUMMARY | 2025-07-10 12:33 | XMS_ITS | Encounter Summary ---
Author Organization [facility] Address [address] [place] [address] Phone Care Team Providers Care Pulping Machine Operator Name Role Phone Ailin Araujo MD Primary Care Provider Encounter Details Date Type Department Care Team (Late st Contact Info) Description 05/29/2022 Procedure Pass [facility], Ct Scan - [address] [address] Social History Tobacco Use Types Packs/Day Years [...] Description 08/08/2025 1:30 PM EST Office Visit [facility] [address] [place] [address] ElianNatalie little Meliza, RADIOLOGY INTERVENTIONAL PHYSICIAN [address] [address] Meaghan Houser, PT 8 [place] [address] 08/13/2025 11:15 AM EST Office Visit [facility] [address] [place] [address] Yamilet Syedh Meliza, RADIOLOGY INTERVENTIONAL PHYSICIAN [address] [address] Meaghan Houser, PT 8 [place] [address] 08/15/2025 1:30 PM EST Office Visit [facility] Physical Therapy [address] [place] [address] ElianNatalie little Meliza, [facility] [address] [address] [email or web address] Meaghan Houser, PT 8 [place] [address] 08/20/2025 11:15 AM EST Office Visit [facility] Therapy [address] [place] [address] Natalie Syed, RADIOLOGY INTERVENTIONAL PHYSICIAN [address] [address] Meaghan Houser, PT 8 [place] [address] 08/22/2025 1:30 PM EST Office Visit [facility] [address] [place] [address] Natalie Syed, RADIOLOGY INTERVENTIONAL PHYSICIAN [address] [address] Meaghan Houser, PT 8 [place] [address] 08/27/2025 11:15 AM EST Office Visit [facility] [address] [place] [address] [place] [address] Natalie Syed, [address] [address] Meaghan Houser, PT 8 [place] [address] [email or web address] 08/29/2025 1:30 PM EST Office Visit [facility] [address] [place] [address] [place] [address] Natalie Syed, [address] [address] Meaghan Houser, PT 8 [place] [address] 09/03/2025 11:15 AM EST Office Visit [facility] [address] [place] [address] Natalie Syed, RADIOLOGY INTERVENTIONAL PHYSICIAN [address] [address] Meaghan Houser, PT 8 [place] [address] [email or web address] 12/09/2025 12:30 PM EDT Office Visit [facility] Neurology Clinic [address] [place] [address] Natalie Syed FNP 15 [facility], 2nd [place] [address] [email or web address] 12/18/2025 11:30 AM EDT Office Visit [facility] [address] 3rd Floor, [address] [place] [address] Angelic Cesar DNP 22 [facility], [address] [place] [address] 01/17/2026 10:30 AM EDT Telemedicine [facility] Service [address] [place] [address], 8th Floor, [address] [place] [address] Nancy Cardenas MD, MBBS 55 [facility] 720 [place] [phone] [email or web address] [email or web address] documented as of this encounter Visit Diagnoses Not on filedocumented in this encounter Additional Health Concerns Infection Onset Date Last Indicated Resolved Time CoV-Risk 07/20/2023 07/20/2023 07/31/2023 1:2 2 AM EST CoV-Risk Comment:Per note documentation 06/06/2024 06/06/2024 10:40 AM EST CoV-Risk 08/31/2024 08/31/2024 09/11/2024 1:23 AM EST documented as of this encounter Care Teams Pulping Machine Operator Relationship Specialty Start Date End Date Ailin Araujo MD [address] [place] [address] PCP - General Family Medicine 05/13/17 documented as of this encounter Additional Source Comments The information contained in this document represents components of the legal health record. It is not the complete legal health record.[facility]
--- OUTSIDE RECORDS SUMMARY | 2025-07-10 12:33 | XMS_ITS | Encounter Summary ---
Author Organization [facility] Address 399 [facility] [address] [place] [address] Phone Care Team Providers Care Reconciliation Analyst Name Role Phone Ailin Araujo MD Primary Care Provider Encounter Details Date Type Department Care Team (Late st Contact Info) Description 05/13/2023 Procedure Pass [facility], Ct Scan - [address] [address] Social History Tobacco Use Types Packs/Day Years [...] Description 08/08/2025 1:30 PM EST Office Visit [facility] [address] [place] [address] [place] [address] Natalie Syed, CERTIFIED ORTHOPTIST[address] [address] [email or web address] Meaghan Houser, PT 8 [place] [address] 08/13/2025 11:15 AM EST Office Visit [facility] [address] [place] [address] Natalie Syed, [address] [address] [email or web address] Meaghan Houser, PT 8 [place] [address] 08/15/2025 1:30 PM EST Office Visit [facility] [address] [place] [address] [place] [address] Natalie Syed, [address] [address] [email or web address] Meaghan Houser, PT 8 [place] [address] 08/20/2025 11:15 AM EST Office Visit [facility] [address] [place] [address] Natalie Syed, [address] [address] Meaghan Houser, PT 8 [place] [address] 08/22/2025 1:30 PM EST Office Visit [facility] [address] [place] [address] Natalie Syed, [address] [address] Meaghan Houser, PT 8 [place] [address] 08/27/2025 11:15 AM EST Office Visit [facility] [address] [place] [address] Natalie Syed, [address] [address] Meaghan Houser, PT 8 [place] [address] 08/29/2025 1:30 PM EST Office Visit [facility] [address] [place] [address] Natalie Syed, [address] [address] Meaghan Houser, PT 8 [place] [address] 09/03/2025 11:15 AM EST Office Visit [facility] [address] [place] [address] Natalie Syed, CERTIFIED ORTHOPTIST 15 [facility], [address] [place] [address] Meaghan Houser, PT 8 [place] [address] 12/09/2025 12:30 PM EDT Office Visit [facility] [address] [place] [address] Natalie Syed, CERTIFIED ORTHOPTIST 15 [facility], [address] [place] [address] 12/18/2025 11:30 AM EDT Office Visit [facility] 22 [facility] 3rd Floor, [address] [place] [address] Angelic Cesar DNP 22 [facility], [address] [address] 01/17/2026 10:30 AM EDT Telemedicine [facility] [address] [place] [address], 8th Floor, [address] [place] [address] Nancy Cardenas MD, MBBS [address] [phone] JUAN [email or web address] documented as of this encounter Visit Diagnoses Not on filedocumented in this encounter Additional Health Concerns Infection Onset Date Last Indicated Resolved Time CoV-Risk 07/20/2023 07/20/2023 07/31/2023 1:22 AM EST CoV-Risk Comment:Per note documentation 06/06/2024 06/06/2024 10:40 AM EST CoV-Risk 08/31/2024 08/31/2024 09/11/2024 1:23 AM EST documented as of this encounter Care Teams Reconciliation Analyst Relationship Specialty Start Date End Date Ailin Araujo MD [address] [place] [address] PCP - General Family Medicine 05/13/17 documented as of this encounter Additional Source Comments The information contained in this document represents components of the legal health record. It is not the complete legal health record.[facility]
--- OUTSIDE RECORDS SUMMARY | 2025-07-10 12:33 | XMS_ITS | Encounter Summary ---
Author Organization [facility] Address 399 [facility] [address] [place] [address] Phone Care Team Providers Care Concessions Manager Name Role Phone Ailin Araujo MD Primary Care Provider Encounter Details Date Type Department Care Team (Late st Contact Info) Description 05/29/2022 Procedure Pass [facility], Ct Scan - [address] [address] Social History Tobacco Use Types Packs/Day Years [...] Description 08/08/2025 1:30 PM EST Office Visit [facility] [address] [place] [address] ElianNatalie little Meliza, EXTRACTING MACHINE OPERATOR [address] [address] Meaghan Houser, PT 8 [place] [address] 08/13/2025 11:15 AM EST Office Visit [facility] [address] [place] [address] Yamilet Syedh Meliza, EXTRACTING MACHINE OPERATOR [address] [address] Meaghan Houser, PT 8 [place] [address] 08/15/2025 1:30 PM EST Office Visit [facility] Physical Therapy [address] [place] [address] ElianNatalie little Meliza, [facility] [address] [address] [email or web address] Meaghan Houser, PT 8 [place] [address] 08/20/2025 11:15 AM EST Office Visit [facility] [address] [place] [address] Natalie Syed, EXTRACTING MACHINE OPERATOR [address] [address] Meaghan Houser, PT 8 [place] [address] 08/22/2025 1:30 PM EST Office Visit [facility] [address] [place] [address] Natalie Syed, EXTRACTING MACHINE OPERATOR [address] [address] Meaghan Houser, PT 8 [place] [address] 08/27/2025 11:15 AM EST Office Visit [facility] [address] [place] [address] [place] [address] Natalie Syed, [address] [address] Meaghan Houser, PT 8 [place] [address] [email or web address] 08/29/2025 1:30 PM EST Office Visit [facility] [address] [place] [address] [place] [address] Natalie Syed, [address] [address] Meaghan Houser, PT 8 [place] [address] 09/03/2025 11:15 AM EST Office Visit [facility] [address] [place] [address] Natalie Syed, EXTRACTING MACHINE OPERATOR [address] [address] Meaghan Houser, PT 8 [place] [address] [email or web address] 12/09/2025 12:30 PM EDT Office Visit [facility] [address] [place] [address] Natalie Syed FNP 15 [facility], 2nd [place] [address] [email or web address] 12/18/2025 11:30 AM EDT Office Visit [facility] [address] 3rd Floor, [address] [place] [address] Angelic Cesar DNP 22 [facility], [address] [place] [address] 01/17/2026 10:30 AM EDT Telemedicine [facility] [address] [place] [address], 8th Floor, [address] [place] [address] Nancy Cardenas MD, MBBS 55 [facility] 720 [place] [phone] JUAN [email or web address] documented as of this encounter Visit Diagnoses Not on filedocumented in this encounter Additional Health Concerns Infection Onset Date Last Indicated Resolved Time CoV-Risk 07/20/2023 07/20/2023 07/31/2023 1:2 2 AM EST CoV-Risk Comment:Per note documentation 06/06/2024 06/06/2024 10:40 AM EST CoV-Risk 08/31/2024 08/31/2024 09/11/2024 1:23 AM EST documented as of this encounter Care Teams Concessions Manager Relationship Specialty Start Date End Date Ailin Araujo MD [address] [place] [address] PCP - General Family Medicine 05/13/17 documented as of this encounter Additional Source Comments The information contained in this document represents components of the legal health record. It is not the complete legal health record.[facility]
--- OUTSIDE RECORDS SUMMARY | 2025-07-10 12:33 | XMS_ITS | Encounter Summary ---
Author Organization [facility] Address 399 [facility] [address] [place] [address] Phone Care Team Providers Care Highway Engineering Teacher Name Role Phone Ailin Araujo MD Primary Care Provider Encounter Details Date Type Department Care Team (Late st Contact Info) Description 05/14/2022 Procedure Pass [facility], [address], Floor 1 [place] [address] Social History Tobacco Use Types Packs/Day Years [...] Visit [facility] [address] [place] [address] ElianNatalie little Meliza, CERTIFIED MEDICAL BILLER [address] [address] Meaghan Houser, PT 8 [place] [address] 08/13/2025 11:15 AM EST Office Visit [facility] [address] [place] [address] Yamilet Syedh Meliza, CERTIFIED MEDICAL BILLER [address] [address] Meaghan Houser, PT 8 [place] [address] 08/15/2025 1:30 PM EST Office Visit [facility] [address] [place] [address] ElianNatalie little Meliza, [facility] [address] [address] [email or web address] Meaghan Houser, PT 8 [place] [address] 08/20/2025 11:15 AM EST Office Visit [facility] [address] [place] [address] Natalie Syed, CERTIFIED MEDICAL BILLER [address] [address] Meaghan Houser, PT 8 [place] [address] 08/22/2025 1:30 PM EST Office Visit [facility] [address] [place] [address] Natalie Syed, CERTIFIED MEDICAL BILLER [address] [address] Meaghan Houser, PT 8 [place] [address] 08/27/2025 11:15 AM EST Office Visit [facility] [address] [place] [address] [place] [address] Natalie Syed, [address] [address] Meaghan Houser, PT 8 [place] [address] [email or web address] 08/29/2025 1:30 PM EST Office Visit [facility] [address] [place] [address] [place] [address] Natalie Syed, [address] [address] Meaghan Houser, PT 8 [place] [address] 09/03/2025 11:15 AM EST Office Visit [facility] [address] [place] [address] Natalie Syed, CERTIFIED MEDICAL BILLER [address] [address] Meaghan Houser, PT 8 [place] [address] [email or web address] 12/09/2025 12:30 PM EDT Office Visit [facility] [address] [place] [address] Natalie Syed FNP 15 [facility], 2nd [place] [address] [email or web address] 12/18/2025 11:30 AM EDT Office Visit [facility] [address] 3rd Floor, [address] [place] [address] Angelic Cesar DNP 22 [facility], [address] [place] [address] 01/17/2026 10:30 AM EDT Telemedicine [facility] [address] [place] [address], 8th Floor, [address] [place] [address] Nancy Cardenas MD, MBBS 55 [facility] [place] [facility] 720 [place] [phone] JUAN [email or web address] documented as of this encounter Visit Diagnoses Not on filedocumented in this encounter Additional Health Concerns Infection Onset Date Last Indicated Resolved Time CoV-Risk 07/20/2023 07/20/2023 07/31/2023 1:22 AM EST CoV-Risk Comment:Per note documentation 06/06/2024 06/06/2024 10:40 AM EST CoV-Risk 08/31/2024 08/31/2024 09/11/2024 1:23 AM EST documented as of this encounter Care Teams Highway Engineering Teacher Relationship Specialty Start Date End Date Ailin Araujo MD [address] [place] [address] PCP - General Family Medicine 05/13/17 documented as of this encounter Additional Source Comments The information contained in this document represents components of the legal health record. It is not the complete legal health record.[facility]
--- OUTSIDE RECORDS SUMMARY | 2025-07-10 12:33 | XMS_ITS | Encounter Summary ---
Author Organization [facility] Address 399 [facility] [address] [place] [address] Phone Care Team Providers Care Bulb Brander Name Role Phone Ailin Araujo MD Primary Care Provider Encounter Details Date Type Department Care Team (Late st Contact Info) Description 06/11/2022 Procedure Pass [facility], Ct Scan - [address] [address] Social History Tobacco Use Types Packs/Day Years [...] Description 08/08/2025 1:30 PM EST Office Visit [facility] [address] [place] [address] ElianNatalie little Meliza, TIE PULLER [address] [address] Meaghan Houser, PT 8 [place] [address] 08/13/2025 11:15 AM EST Office Visit [facility] [address] [place] [address] Yamilet Syedh Meliza, TIE PULLER [address] [address] Meaghan Houser, PT 8 [place] [address] 08/15/2025 1:30 PM EST Office Visit [facility] Physical Therapy [address] [place] [address] ElianNatalie little Meliza, [facility] [address] [address] [email or web address] Meaghan Houser, PT 8 [place] [address] 08/20/2025 11:15 AM EST Office Visit [facility] Physical Therapy [address] [place] [address] Natalie Syed, TIE PULLER [address] [address] Meaghan Houser, PT 8 [place] [address] 08/22/2025 1:30 PM EST Office Visit [facility] [address] [place] [address] Natalie Syed, TIE PULLER [address] [address] Meaghan Houser, PT 8 [place] [address] 08/27/2025 11:15 AM EST Office Visit [facility] [address] [place] [address] [place] [address] Natalie Syed, [address] [address] Meaghan Houser, PT 8 [place] [address] [email or web address] 08/29/2025 1:30 PM EST Office Visit [facility] [address] [place] [address] [place] [address] Natalie Syed, [address] [address] Meaghan Houser, PT 8 [place] [address] 09/03/2025 11:15 AM EST Office Visit [facility] [address] [place] [address] Natalie Syed, TIE PULLER [address] [address] Meaghan Houser, PT 8 [place] [address] [email or web address] 12/09/2025 12:30 PM EDT Office Visit [facility] [address] [place] [address] Natalie Syed FNP 15 [facility], 2nd [place] [address] [email or web address] 12/18/2025 11:30 AM EDT Office Visit [facility] [address] 3rd Floor, [address] [place] [address] Angelic Cesar DNP 22 [facility], [address] [place] [address] 01/17/2026 10:30 AM EDT Telemedicine [facility] [address] [place] [address], 8th Floor, [address] [place] [address] Nancy Cardenas MD, MBBS 55 [facility] 720 [place] [phone] JUAN [email or web address] documented as of this encounter Visit Diagnoses Not on filedocumented in this encounter Additional Health Concerns Infection Onset Date Last Indicated Resolved Time CoV-Risk 07/20/2023 07/20/2023 07/31/2023 1:22 AM EST CoV-Risk Comment:Per note documentation 06/06/2024 06/06/2024 10:40 AM EST CoV-Risk 08/31/2024 08/31/2024 09/11/2024 1:23 AM EST documented as of this encounter Care Teams Bulb Brander Relationship Specialty Start Date End Date Ailin Araujo MD [address] [place] [address] PCP - General Family Medicine 05/13/17 documented as of this encounter Additional Source Comments The information contained in this document represents components of the legal health record. It is not the complete legal health record.[facility]
--- OUTSIDE RECORDS SUMMARY | 2025-07-10 12:33 | XMS_ITS | Encounter Summary ---
Author Organization [facility] Address 399 [facility] [address] [place] [address] Phone Care Team Providers Care Mainframe Systems Administrator Name Role Phone Ailin Araujo MD Primary Care Provider Reason for Visit * Reason Comments Medication Refill Encounter Details Date Type Department Care Team (Late st Contact Info) Description 04/27/2018 Refill [facility] [address] [place] [address] Luan Almonte MD 55 [place] [address] [email or web address] Medication Refill Social History Tobacco Use Types [...] Description 08/08/2025 1:30 PM EST Office Visit [facility] [address] [place] [address] Natalie Syed, STUDENT DEAN [address] [address] Meaghan Houser, PT 8 [place] [address] 08/13/2025 11:15 AM EST Office Visit [facility] [address] [place] [address] Natalie Syed, STUDENT DEAN [address] [place] [address] Meaghan Houser, PT 8 [place] [address] 08/15/2025 1:30 PM EST Office Visit [facility] [address] [place] [address] [place] [address] Natalie Syed, [address] [address] Meaghan Houser, PT 8 [place] [address] 08/20/2025 11:15 AM EST Office Visit [facility] [address] [place] [address] Natalie Syed, STUDENT DEAN [address] [address] Meaghan Houser, PT 8 [place] [address] 08/22/2025 1:30 PM EST Office Visit [facility] [address] [place] [address] [place] [address] Natalie Syed, [address] [address] Meaghan Houser, PT 8 [place] [address] 08/27/2025 11:15 AM EST Office Visit [facility] [address] [place] [address] [place] [address] Natalie Syed, [address] [address] Meaghan Houser, PT 8 [place] [address] 08/29/2025 1:30 PM EST Office Visit [facility] Physical Therapy [address] [place] [address] Natalie Syed, [address] [address] Meaghan Houser, PT 8 [place] [address] 09/03/2025 11:15 AM EST Office Visit [facility] Physical Therapy [employer] [address] [place] [address] Natalie Syed, [address] [address] Meaghan Houser, PT 8 [place] [address] 12/09/2025 12:30 PM EDT Office Visit [facility] [address] [place] [address] Natalie Syed, STUDENT DEAN [facility] 2nd [place] [address] [email or web address] 12/18/2025 11:30 AM EDT Office Visit [facility] [address] 3rd Floor, [address] [place] [address] Angelic Cesar DNP 22 [facility], [address] [place] [address] [email or web address] 01/17/2026 10:30 AM EDT Telemedicine [facility] 55 [facility], 8th Floor, [address] [place] [address] Nancy Cardenas MD, MBBS 55 [facility] 720 [place] [phone] JUAN [email or web address] documented as of this encounter Visit Diagnoses Not on filedocumented in this encounter Additional Health Concerns Infection Onset Date Last Indicated Resolved Time CoV-Risk 07/20/2023 07/20/2023 07/31/2023 1:22 AM EST CoV-Risk Comment:Per note documentation 06/06/2024 06/06/2024 10:40 AM EST CoV-Risk 08/31/2024 08/31/2024 09/11/2024 1:23 AM EST documented as of this encounter Care Teams Mainframe Systems Administrator Relationship Specialty Start Date End Date Ailin Araujo MD [address] [place] [address] PCP - General Family Medicine 05/13/17 documented as of this encounter Additional Source Comments The information contained in this document represents components of the legal health record. It is not the complete legal health record.[facility]
--- OUTSIDE RECORDS SUMMARY | 2025-07-10 12:33 | XMS_ITS | Encounter Summary ---
Author Organization [facility] Address 399 [facility] [address] [place] [address] Phone Care Team Providers Care Roof Tiler Name Role Phone Ailin Araujo MD Primary Care Provider Encounter Details Date Type Department Care Team (Late st Contact Info) Description 06/11/2022 Procedure Pass [facility], Ct Scan - [address] [address] Social History Tobacco Use Types Packs/Day Years [...] 08/08/2025 1:30 PM EST Office Visit [facility] [address] [place] [address] ElianNatalie little Meliza, TARGET PROTECTION SPECIALIST [address] [address] Meaghan Houser, PT 8 [place] [address] 08/13/2025 11:15 AM EST Office Visit [facility] [address] [place] [address] Yamilet Syedh Meliza, TARGET PROTECTION SPECIALIST [address] [address] Meaghan Houser, PT 8 [place] [address] 08/15/2025 1:30 PM EST Office Visit [facility] Physical Therapy [address] [place] [address] ElianNatalie little Meliza, [facility] [address] [address] [email or web address] Meaghan Houser, PT 8 [place] [address] 08/20/2025 11:15 AM EST Office Visit [facility] Therapy [address] [place] [address] Natalie Syed, TARGET PROTECTION SPECIALIST [address] [address] Meaghan Houser, PT 8 [place] [address] 08/22/2025 1:30 PM EST Office Visit [facility] [address] [place] [address] Natalie Syed, TARGET PROTECTION SPECIALIST [address] [address] Meaghan Houser, PT 8 [place] [address] 08/27/2025 11:15 AM EST Office Visit [facility] [address] [place] [address] [place] [address] Natalie Syed, [address] [address] Meaghan Houser, PT 8 [place] [address] [email or web address] 08/29/2025 1:30 PM EST Office Visit [facility] [address] [place] [address] [place] [address] Natlaie Syed, [address] [address] Meaghan Houser, PT 8 [place] [address] 09/03/2025 11:15 AM EST Office Visit [facility] [address] [place] [address] Natlaie Syed, TARGET PROTECTION SPECIALIST [address] [address] Meaghan Houser, PT 8 [place] [address] [email or web address] 12/09/2025 12:30 PM EDT Office Visit [facility] [address] [place] [address] Natalie Syed FNP 15 [facility], 2nd [place] [address] [email or web address] 12/18/2025 11:30 AM EDT Office Visit [facility] [address] 3rd Floor, [address] [place] [address] Angelic Cesar DNP 22 [facility], [address] [place] [address] 01/17/2026 10:30 AM EDT Telemedicine [facility] Service [address] [place] [address], 8th Floor, [address] [place] [address] Nancy Cardenas MD, MBBS [address] [facility] [address] [place] [id number] [email or web address] documented as of this encounter Visit Diagnoses Not on filedocumented in this encounter Additional Health Concerns Infection Onset Date Last Indicated Resolved Time CoV-Risk 07/20/2023 07/20/2023 07/31/2023 1:22 AM EST CoV-Risk Comment:Per note documentation 06/06/2024 06/06/2024 10:40 AM EST CoV-Risk 08/31/2024 08/31/2024 09/11/2024 1:23 AM EST documented as of this encounter Care Teams Roof Tiler Relationship Specialty Start Date End Date Ailin Araujo MD [address] [place] [address] PCP - General Family Medicine 05/13/17 documented as of this encounter Additional Source Comments The information contained in this document represents components of the legal health record. It is not the complete legal health record.[facility]
--- OUTSIDE RECORDS SUMMARY | 2025-07-10 12:33 | XMS_ITS | Clinical Summary ---
Author Organization [facility] Address [address] [address] Phone Care Team Providers Care Director Plans Name Role Phone Ailin Araujo MD Primary [...] seizures as well as pseudoseizures. Follows with [facility] neurology for both. Neuro notes reviewed. Presented [...] available in the telephone triage system in [place]. She also apparently had a abnormal EEG however both changes were not clearly epileptiform. EEG pending Keppra continued Keppra level pending Workup for infection unremarkable This may have been a pseudoseizure related to recent stress of recently diagnosed metastatic breast cancer. She had a history of breast cancer, in remission, but was recently diagnosed with bony mets per her report. Followed at [facility] and [facility]. Once EEG is available, would follow-up with her neurology team at [facility] for recommendations. Assessment & Plan (11/21/2024 5:36 PM EDT): Patient with history of seizures, some documents indicate functional seizure disorder with breakthrough seizure events including last month at [facility] and in September at [facility]. [facility] notes indicate due to noncompliance with Keppra and ED notes indicate concern for UTI at [facility]. Patient lives with her son, was [...] available in the telephone triage system in [place]. She also apparently had a abnormal EEG [...] a locked box and distributed by a day care attendant. - spoke with son at length today, [...] a locked box and distributed by a day care attendant Seizure 10/19/2023 Assessment & Plan (10/19/2023 9:10 [...] anyway. She was due to be in [place] today for an appointment with an epileptologist, [...] 2:46 PM EDT): Stage 4, treated at [facility]. 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 Assessment & Plan (08/12/2022 6:45 AM EST): Diagnosis unclear at this time. Per son, he was told by patient that she was receiving treatment at [facility]. -We will need to obtain records from [facility] for further clarification. Resolved Problems Problem [...] Patient appears at her baseline --Psychiatry and [facility] follow-up appreciated --Cymbalta 20 mg daily --Cont 1:1 --Transfer to [facility] when bed available --cont telemetry Delirium 09/28/2022 [...] reflex in am -Contact her neurologist at [facility] Dr Cardenas Assessment & Plan (05/09/2022 4:06 PM EDT): Presented to [facility] after concern for seizure and prolonged period of hypersomnolence following the episode. Mental status improved markedly on the afternoon of 05/08. Since this time she has remained at her baseline. Shaking episode last night was not felt to represent an epileptic seizure. MRI unremarkable, no signs of LOADING MACHINE OPERATOR HELPER metastases She was concerned about the possibility of a left rib fracture. X-ray is negative and more likely soft tissue injury -- Continue Keppra as scheduled. Level high normal range -- Seizure precautions --EEG if this can be obtained before discharge --Will need follow-up with neurology team in [place]. She was due to see them yesterday. [...] Encounters Date Type Department Care Team Description 06/03/2025 11:00 AM EST Office Visit [facility] [address] [place] [address] Natalie Syed FNP Intractable migraine with aura with status migrainosus (Primary Dx); Convulsions, unspecified convulsion type; Cervicogenic headache 04/23/2025 8:45 AM EDT Office Visit [facility] [address], [address] [place] [address] Dante Osborn DO Varicose veins of bilateral lower extremities with other complications (Primary Dx); Left leg pain; Palpitations; Orthostatic hypotension 04/17/2025 1:48 PM EDT - 04/17/2025 11:59 PM EDT Hospital Encounter [facility] [address] [place] [address] Angelic Cesar DNP Discharge Disposition: Home or Self Care 04/09/2025 Telephone [facility] [address] [facility], [address] [place] [address] Angelic Cesar DNP from Last 3 Months Immunizations Immunization Administration Dates Next Due COVID-19 (Pre-05/02) Pfizer Vaccine, Bivalent 12+ 04/03/2022 [id number] FORMULATION 04/20/2016 Hep A-Hep B 12/20/2012 INFLUENZA, [...] Sign Reading Time Taken Comments Blood Pressure 118/68 06/03/2025 11:03 AM EST Pulse 90 06/03/2025 11:03 AM EST Temperature 36.9 C (98.4 F) 11/23/2024 12:00 PM EDT Respiratory Rate 16 11/23/2024 12:00 PM EDT Oxygen Saturation 99% 06/03/2025 11:03 AM EST Inhaled Oxygen Concentration 20.9% 11/17/2022 6 :00 AM EDT Weight 68.5 kg (151 lb) 04/23/2025 8:49 AM EDT Height 162.6 cm (5' 4.02 ) 04/23/2025 8:49 AM ED T Body Mass Index 25.91 04/23/2025 8:49 AM EDT Plan of Treatment Upcoming Encounters Date Type Department Care Team (Late st Contact Info) Description 08/08/2025 1:30 PM EST Office Visit [facility] Therapy [address] [place] [address] Natalie Syed, [address] [address] Meaghan Houser, PT 8 [place] [address] [email or web address] 08/13/2025 11:15 AM EST Office Visit [facility] Therapy [address] [place] [address] Natalie Syed, [address] [address] [email or web address] Meaghan Houser, PT 8 [place] [address] [email or web address] 08/15/2025 1:30 PM EST Office Visit [facility] Physical Therapy [facility] [address] [place] [address] Natalie Syed, [address] [address] [email or web address] Meaghan Houser, PT 8 [place] [address] [email or web address] 08/20/2025 11:15 AM EST Office Visit [facility] [address] [place] [address] [place] [address] Natalie Syedley, WILDLIFE SCIENCE PROFESSOR [address] [address] [email or web address] Meaghan Houser, PT 8 [place] [address] 08/22/2025 1:30 PM EST Office Visit [facility] [address] [place] [address] KunalNatalie Meliza, [address] [address] [email or web address] Meaghan Houser, PT 8 [place] [address] [email or web address] 08/27/2025 11:15 AM EST Office Visit [facility] [address] [place] [address] KunalNatalie Meliza, [address] [address] [email or web address] Meaghan Houser, PT 8 [place] [address] 08/29/2025 1:30 PM EST Office Visit [facility] [address] [place] [address] Natalie Syed, [facility] [address] [address] [email or web address] Meaghan Houser, PT 8 [place] [address] 09/03/2025 11:15 AM EST Office Visit [facility] [address] [place] [place] [address] Natalie Syed, WILDLIFE SCIENCE PROFESSOR 15 [facility], 2nd [place] [address] Meaghan Houser, PT 8 [place] [address] 12/09/2025 12:30 PM EDT Office Visit [facility] [address] [place] [address] Natalie Syed, WILDLIFE SCIENCE PROFESSOR 15 [facility], 2nd [place] [address] 12/18/2025 11:30 AM EDT Office Visit [facility] [address] Floor, [address] [place] [address] Angelic Cesar, NEAL 22 [facility], [address] [place] [address] 01/17/2026 10:30 AM EDT Telemedicine [facility] Service 55 [facility], 8th Floor, [address] [place] [address] Nancy Cardenas MD, MBBS 55 [facility] [address] [place] [phone] [email or web address] Health Maintenance Due Date Last Done Comments [...] 04/03/2022, 04/03/2022, Additional history exists COVID-19 VACCINE ( season) 2025 05/06/2023, 04/03/2022, 11/25/2021, Additional history [...] 04/17/2025 2:51 PM EDT Edema, unspecified type LIPID PANEL Routine 01/28/2023 6:10 AM EDT [...] sec Prox Great Saphenous Vein Thigh Diameter Anterior-Service Desk Team Lead ior 0.5 cm Mid Great Saphenous Vein Thigh Valve Closure Time 6.7 sec Mid Great Saphenous Vein Thigh Diameter Anterior-Service Desk Team Lead ior 0.5 cm Dist Great Saphenous Vein Thigh Valve Closure Time 3.0 sec Dist Great Saphenous Vein Thigh Diameter Anterior-Service Desk Team Lead ior 0.5 cm Knee Great Saphenous Vein Valve Closure Time 2.6 sec Knee Great Saphenous Vein Diameter Anterior-Service Desk Team Lead ior 0.5 cm Prox Great Saphenous Vein Calf Valve Closure Time 0.7 sec Prox Great Saphenous Vein Calf Diameter Anterior-Service Desk Team Lead ior 0.5 cm Popliteal Fossa GSV Anterior-Service Desk Team Lead ior 0.2 cm Mid Small Saphenous Vein Calf Diameter Anterior-Service Desk Team Lead ior 0.2 cm GSV Sapheno-Femoral Diameter Anterior-Service Desk Team Lead ior 0.8 cm Prox Great Saphenous Vein Thigh Valve Closure Time 0.7 sec Prox Great Saphenous Vein Thigh Diameter Anterior-Service Desk Team Lead ior 0.3 cm Mid Great Saphenous Vein Thigh Valve Closure Time 6.0 sec Mid Great Saphenous Vein Thigh Diameter Anterior-Service Desk Team Lead ior 0.3 cm Dist Great Saphenous Vein Thigh Valve Closure Time 5.0 sec Dist Great Saphenous Vein Thigh Diameter Anterior-Service Desk Team Lead ior 0.3 cm Knee Great Saphenous Vein Closure time 10.0 sec Knee Great Saphenous Vein Diameter Anterior-Service Desk Team Lead ior 0.4 cm Prox Great Saphenous Vein Calf Valve Closure Time 2.0 sec Prox Great Saphenous Vein Calf Diameter Anterior-Service Desk Team Lead ior 0.4 cm Left Great Saphenous Vein Popliteal Fossa Anterior-Service Desk Team Lead ior 0.2 cm Mid Small Saphenous Vein Calf Valve Closure Time 0.6 sec Mid Small Saphenous Vein Calf Diameter Anterior-Service Desk Team Lead ior 0.2 cm Anatomical Region Laterality Modality [...] color flow Doppler and spectral waveform Doppler. us Angelic Muse DNP CV US VASCULAR Final Result * (ABNORMAL) Lipid panel (01/28/2023 6:10 AM EDT) HDL 53 mg/dL [facility] Comment: Interpretation <40 mg/dL: Low HDL cholesterol (major risk factor for CHD) Greater than or equal to 60 mg/dL: High HDL cholesterol ( negative risk factor for CHD) HDL - cholesterol is affected by a number of factors, e.g. smoking, excerise, hormones, sex and age. CHOLESTEROL 142 0 - 240 mg/dL [facility] TRIGLYCERIDES 44 30 - 160 mg/dL [facility] LDL 80 50 - 129 mg/dL [facility] Comment: LDL levels in terms of risk for coronary heart disease: <100 mg/dL: Optimal 100-129 mg/dL: Near or above optimal 130-159 mg/dL: Borderline high 160-189 mg/dL: High >190 mg/dL: Very High CARDIAC RISK RATIO 2.7(L) 3.3 - 4.4 C [facility] Blood 01/28/2023 6:10 AM EDT 01/28/2023 6:40 AM EDT Bonnie Abrams MD LAB BLOOD BKR ORDERABLES Inna l Result [address] [address] from Last 3 Months or Most Recently Relevant to Health Maintenance Insurance MEDICARE PART A & B [facility] MEDICARE PART A & B [facility] MEDICARE PART A & [facility] MEDICARE PART A & B [facility] [place] [id number] MEDICARE PART A & B [facility] [place] [id number] MEDICARE PART A & B Member Subscriber Plan / Payer (Ef fective 2000-Present) Name:Liana Krishnamurthy Member ID:[id number] Relation to Subscriber:Self Name:Liana Krishnamurthy Subscriber ID:[id number] Payer ID:[id number] Group ID:Not on file Type:Medicare Address: [employer] [address] [place] [id number] MEDICARE PART A & B [facility] [place] [id number] MEDICARE PART A & B [place] MEDICARE PART A & B [facility] Advance Directives For more information, please contact: [phone] (9AM - 5PM [facility], Tuesday-Tuesday) Documents on File Type Date Recorded Patient General Maintenance Helper Expl anation Healthcare Proxy 06/02/2022 12:43 PM [...] Name Relationship Healthcare Agent Relationship Communication Jeronimo Krishnamurthy Son Alternate Healthcare Agent (Proxy form on file) Yael Raghu Other .Primary Heal th Care Agent (Proxy form on file) Care Teams Director Plans Relationship Specialty Start Date End Date Ailin Araujo MD [address] [place] [address] PCP - General Family Medicine 05/13/17 Additional Source Comments The information contained in this document represents components of the legal health record. It is not the complete legal health record.[facility]
--- OUTSIDE RECORDS SUMMARY | 2025-07-10 12:33 | XMS_ITS | Encounter Summary ---
Author Organization [facility] Address 399 [facility] [address] [place] [address] Phone Care Team Providers Care Leather Sprayer Name Role Phone Ailin Araujo MD Primary Care Provider Reason for Referral * MRI/CAT Scan - Closed Specialty Diagnoses / Procedures Referred By Ambar t Referred To Contact Radiology Diagnoses Shortness of breath Procedures NC Stress Result for Nuclear Stress Test Grover Collins MD, PhD Phone: tel: fax: mailto:[email or web address] Referral ID Status Reason Start Date Expiration Date Visits Re quested Visits Authorized [id number] Closed 05/27/2023 11/01/2023 1 1 Encounter Details Date Type Department Care Team (Late st Contact Info) Description 05/27/2023 Ancillary Orders [facility] [address] [place] [address] Grover Collins MD, PhD [address] [place] [address] [email or web address] Shortness of breath Social History [...] Visit [facility] [address] [place] [address] Natalie Syed FNP 15 [facility], 2nd [place] [address] Meaghan Houser, PT 8 [place] [address] 08/13/2025 11:15 AM EST Office Visit [facility] [address] [place] [address] Natalie Syed FNP [address] [address] Meaghan Houser, PT 8 [place] [address] 08/15/2025 1:30 PM EST Office Visit [facility] [address] [place] [address] Natalie Syedley, [address] [address] Meaghan Houser, PT 8 [place] [address] [email or web address] 08/20/2025 11:15 AM EST Office Visit [facility] Therapy [address] [place] [address] Natalie Syed Meliza, [address] [address] [email or web address] Meaghan Houser, PT 8 [place] [address] [email or web address] 08/22/2025 1:30 PM EST Office Visit [facility] [address] [place] [address] ElianNatalie little Meliza, [address] [address] [email or web address] Meaghan Houser, PT 8 [place] [address] 08/27/2025 11:15 AM EST Office Visit [facility] [address] [place] [address] Natalie Syed, METAL PATTERNMAKER 15 [facility], [address] [place] [address] Meaghan Houser, PT 8 [place] [address] 08/29/2025 1:30 PM EST Office Visit [facility] [address] [place] [address] Natalie Syed, METAL PATTERNMAKER 15 [facility], [address] [place] [address] Meaghan Houser, PT 8 [place] [address] [email or web address] 09/03/2025 11:15 AM EST Office Visit [facility] [address] [place] [address] Natalie Syed, METAL PATTERNMAKER [address] [address] Meaghan Houser, PT 8 [place] [address] 12/09/2025 12:30 PM EDT Office Visit [facility] [address] [place] [address] Natalie Syed, METAL PATTERNMAKER [address] [address] 12/18/2025 11:30 AM EDT Office Visit [facility] [address], [address] [place] [address] Angelic Cesar DNP 22 [facility], [address] [place] [address] 01/17/2026 10:30 AM EDT Telemedicine [facility] Service 55 [facility], 8th Floor, [address] [place] [address] Nancy Cardenas MD, MBBS 55 [facility] [address] [place] [address] [email or web address] documented as of this encounter Results * NC Stress Result for Nuclear Stress Test (05/27/2023 11:35 AM EST) Max BP Systolic [address] [facility] Max BP Diastolic 66 mmHg [facility] Max HR 64 BPM [facility] Resting HR 60 BPM [facility] Resting BP Systolic 98 mmHg [facility] Resting BP Diastolic 66 mmHg [facility]1983 Peak METS 1.0 METS [facility] Peak HR 62 BPM [facility], 1928[facility]1983 Peak BP Systolic 90 mmHg [facility]1983 Peak BP Diastolic 64 mmHg [facility]1983 Anatomical Region Laterality Modality Heart Other 05/27/2023 [...] seizure history (contraindication to Lexiscan). Adelina Gray HOME CARE ATTENDANT with Dr Osborn. us Grover Collins MD, PhD CV NM CARDIAC Fin al Result documented in this encounter Visit Diagnoses Diagnosis Shortness of breath Shortness of breath documented in this encounter Additional Health Concerns Infection Onset Date Last Indicated Resolved Time CoV-Risk 07/20/2023 07/20/2023 07/31/2023 1:22 AM EST CoV-Risk Comment:Per note documentation 06/06/2024 06/06/2024 10:40 AM EST CoV-Risk 08/31/2024 08/31/2024 09/11/2024 1:23 AM EST documented as of this encounter Care Teams Leather Sprayer Relationship Specialty Start Date End Date Ailin Araujo MD [address] [place] [address] PCP - General Family Medicine 05/13/17 documented as of this encounter Additional Source Comments The information contained in this document represents components of the legal health record. It is not the complete legal health record.[facility]
--- OUTSIDE RECORDS SUMMARY | 2025-07-10 12:33 | XMS_ITS | Encounter Summary ---
Author Organization [facility] Address [address] [place] [address] Phone Care Team Providers Care Nickel Operator Name Role Phone Ailin Araujo MD Primary Care Provider Reason for Referral * MRI/CAT Scan - Closed Specialty Diagnoses / Procedures Referred By Ambar t Referred To Contact Radiology Diagnoses Shortness of breath Procedures NC Myocardial Perfusion Rest Single NC Myocardial Perfusion Pharmacologic Stress Multiple CHG MYOCARDIAL SPECT MULTIPLE STUDIES Grover Collins MD, PhD Phone: tel: fax: [email or web address] Referral ID Status Reason Start Date Expiration Date Visits Re quested Visits Authorized [id number] Closed 05/12/2023 11/01/2023 4 4 Encounter Details Date Type Department Care Team (Latest Contact Info) Description 05/27/2023 Ancillary Orders [facility] [address]rd Floor, [address] [place], [place] [phone] Grover Collins MD, PhD [address] [place] [address] [email or web address] Shortness of breath Social History Tobacco [...] Visit [facility] [address] [place] [address] Natalie Syed, [employer]DEL [employer]' [address] [facility], 2nd [place] [address] Meaghan Houser, PT 8 [place] [address] 08/13/2025 11:15 AM EST Office Visit [facility] [address] [place] [address] ElianNatalie little Meliza, [employer]' [address] [address] Meaghan Houser, PT 8 [place] [address] 08/15/2025 1:30 PM EST Office Visit [facility] [address] [place] [address] Natalie Syed, MODEL ARTISTS' [address] [address] [email or web address] Meaghan Houser, PT 8 [place] [address] 08/20/2025 11:15 AM EST Office Visit [facility] Physical Therapy [address] [place] [address] ElianNatalie little Meliza, [facility] [address] [address] [email or web address] Meaghan Houser, PT 8 [place] [address] 08/22/2025 1:30 PM EST Office Visit [facility] Physical Therapy [facility] [address] [place] [address] Natalie Syed, MODEL ARTISTS' [address] [address] [email or web address] Meaghan Houser, PT 8 [place] [address] 08/27/2025 11:15 AM EST Office Visit [facility] [address] [place] [address] Natalie Syed, NATA [address] [address] Meaghan Houser, PT 8 [place] [address] 08/29/2025 1:30 PM EST Office Visit [facility] [address] [place] [address] Natalie Syed, NATA [address] [address] Meaghan Houser, PT 8 [place] [address] 09/03/2025 11:15 AM EST Office Visit [facility] [address] [place] [address] Natalie Syed, NATA [address] [address] Meaghan Houser, PT 8 [place] [address] 12/09/2025 12:30 PM EDT Office Visit [facility]rology Clinic [address] [place] [address] Natalie Syed, NATA [address] [address] 12/18/2025 11:30 AM EDT Office Visit [facility] [address] [facility] 3rd Floor, [address] [place] [address] Angelic Cesar NEAL 22 [facility], [address] [place] [address] [email or web address] 01/17/2026 10:30 AM EDT Telemedicine [facility] Service 55 [facility], 8th Floor, [address] [place] [address] Nancy Cardenas MD, MBBS 55 [facility] WACC [address] [place] [phone] JUAN [email or web address] documented as of this encounter Results * NC Myocardial Perfusion Rest Single (05/27/2023 11:16 AM EST) Anatomical Region Laterality Modality Heart, Vascular Nuclear Medicine 05/27/2023 1:57 PM EST Impressions 05/27/2023 2:09 PM EST Normal distribution of tracer throughout the left ventricular myocardium. POS [id number] Narrative 05/27/2023 2:09 PM EST HISTORY: Atypical [...] of tracer throughout the left ventricularmyocardium. POS [id number] us Grover Collins MD, PhD CV NM [...] documented as of this encounter Care Teams Nickel Operator Relationship Specialty Start Date End Date Ailin Araujo MD [address] [place] [address] PCP - General Family Medicine 05/13/17 documented as of this encounter Additional Source Comments The information contained in this document represents components of the legal health record. It is not the complete legal health record.[facility]
--- OUTSIDE RECORDS SUMMARY | 2025-07-10 12:33 | XMS_ITS | Encounter Summary ---
Author Organization [facility] Address [address] [facility] [address] [place] [phone] Phone Care Team Providers Care Surface Supply Breathing Apparatus Name Role Phone Pcp, Not Required Primary Care Provider Ailin Middleton MD Primary Care Provider Encounter Details Date Type Department Care Team (Late Contact Info) Description 01/13/2017 Procedure Pass [facility] [address] [place] [address] Social History Tobacco Use Types Packs/Day Years [...] Visit [facility] [address] [place] [address] ElianNatalie little Meliza, PRODUCT OPERATIONS ASSOCIATE [address] [address] Meaghan Houser, PT 8 [place] [address] 08/13/2025 11:15 AM EST Office Visit [facility] [address] [place] [address] Yamilet Syedh Meliza, PRODUCT OPERATIONS ASSOCIATE [address] [address] Meaghan Houser, PT 8 [place] [address] 08/15/2025 1:30 PM EST Office Visit [facility] Physical Therapy [address] [place] [address] lEianNatalie little Meliza, [facility] [address] [address] [email or web address] Meaghan Houser, PT 8 [place] [address] 08/20/2025 11:15 AM EST Office Visit [facility] Physical Therapy [address] [place] [address] Natalie Syed, PRODUCT OPERATIONS ASSOCIATE [address] [address] Meaghan Houser, PT 8 [place] [address] 08/22/2025 1:30 PM EST Office Visit [facility] [address] [place] [address] Naatlie Syed, PRODUCT OPERATIONS ASSOCIATE [address] [address] Meaghan Houser, PT 8 [place] [address] 08/27/2025 11:15 AM EST Office Visit [facility] [address] [place] [address] [place] [address] Natalie Syed, [address] [address] Meaghan Houser, PT 8 [place] [address] [email or web address] 08/29/2025 1:30 PM EST Office Visit [facility] [address] [place] [address] [place] [address] Natalie Syed, [address] [address] Meaghan Houser, PT 8 [place] [address] 09/03/2025 11:15 AM EST Office Visit [facility] [address] [place] [address] Natalie Syed, PRODUCT OPERATIONS ASSOCIATE [address] [address] Meaghan Houser, PT 8 [place] [address] [email or web address] 12/09/2025 12:30 PM EDT Office Visit [facility] Neurology Clinic [address] [place] [address] Natalie Syed FNP [address] [facility], 2nd [place] [address] [email or web address] 12/18/2025 11:30 AM EDT Office Visit [facility] [address] 3rd Floor, [address] [place] [address] Angelic Cesar DNP [address] [facility], [address] [place] [address] [email or web address] 01/17/2026 10:30 AM EDT Telemedicine [facility] Service [address] [place] [address], 8th Floor, [address] [place] [address] Nancy Cardenas MD, MBBS 55 [facility] 720 [place] [phone] [email or web address] documented as of this encounter Visit Diagnoses Not on filedocumented in this encounter Additional Health Concerns Infection Onset Date Last Indicated Resolved Time CoV-Risk 07/20/2023 07/20/2023 07/31/2023 1:22 AM EST CoV-Risk Comment:Per note documentation 06/06/2024 06/06/2024 10:40 AM EST CoV-Risk 08/31/2024 08/31/2024 09/11/2024 1:23 AM EST documented as of this encounter Care Teams Surface Supply Breathing Apparatus Relationship Specialty Start Date End Date Pcp, Not Required PCP - General 12/31/16 05/12/17 Ailin Araujo MD [address] [place] [address] PCP - General Family Medicine 05/13/17 documented as of this encounter Additional Source Comments The information contained in this document represents components of the legal health record. It is not the complete legal health record.[facility]
--- OUTSIDE RECORDS SUMMARY | 2025-07-10 12:33 | XMS_ITS | Encounter Summary ---
Author Organization [facility] Address [address] [facility] [address] [place] [address] Phone Care Team Providers Care Lead Blender Name Role Phone Ailin Araujo MD Primary Care Provider Encounter Details Date Type Department Care Team (Latest Contact Info) Description 11/24/2020 Transcribe Orders Virtual Department 30 [place] [address] Nancy Cardenas MD, MBBS [address] [phone] [email or web address] Pre-procedure lab exam (Primary Dx) Social [...] Description 08/08/2025 1:30 PM EST Office Visit [facility] [address] [place] [address] [place] [address] Natalie Syed, [address] [address] Meaghan Houser, PT 8 [place] [address] 08/13/2025 11:15 AM EST Office Visit [facility] [address] [place] [address] [place] [address] Natalie Syed, [address] [address] Meaghan Houser, PT 8 [place] [address] 08/15/2025 1:30 PM EST Office Visit [facility] Physical Therapy [address] [place] [address] Natalie Syed, [address] [address] Meaghan Houser, PT 8 [place] [address] 08/20/2025 11:15 AM EST Office Visit [facility] [address] [place] [address] Natalie Syed, [address] [address] Meaghan Houser, PT 8 [place] [address] 08/22/2025 1:30 PM EST Office Visit [facility] Physical Therapy [address] [place] [address] Natalie Syed, [address] [address] Meaghan Houser, PT 8 [place] [address] 08/27/2025 11:15 AM EST Office Visit [facility] Physical Therapy [address] [place] [address] Natalie Syed, [address] [address] Meaghan Houser, PT 8 [place] [address] 08/29/2025 1:30 PM EST Office Visit [facility] Physical Therapy [address] [place] [address] Natalie Syed, [address] [address] Meaghan Houser, PT 8 [place] [address] 09/03/2025 11:15 AM EST Office Visit [facility] Physical Therapy [facility] [address] [place] [address] Natalie Syed, [address] [address] Meaghan Houser, PT 8 [place] [address] [email or web address] 12/09/2025 12:30 PM EDT Office Visit [facility] [address] [place] [address] Natalie Syed, PAYROLL DIRECTOR 15 [facility], 2nd [place] [address] [email or web address] 12/18/2025 11:30 AM EDT Office Visit [facility] [address] 3rd Floor, [address] [place] [address] Angelic Cesar DNP 22 [facility], [address] [place] [address] [email or web address] 01/17/2026 10:30 AM EDT Telemedicine [facility] Service 55 [facility], 8th Floor, [address] [place] [address] Nancy Cardenas MD, MAGDALENA [address] [phone] JUAN [email or web address] documented as of this encounter Results * COVID-19 PCR Order (11/24/2020 11:25 AM EDT) COVID-19 Comment [id number] [facility] COVID Testing Status Sent to [facility] [place] [facility] 11/24/2020 11:2 5 AM EDT 11/24/2020 12:59 PM EDT us Nancy Cardenas MD, MAGDALENA [facility] GENERAL ORDERABLES Fi nal Result [facility] 30 [place] [address] documented in this encounter Visit Diagnoses Diagnosis Pre-procedure lab exam- Primary Pre-procedural laboratory examination documented in this encounter Additional Health Concerns Infection Onset Date Last Indicated Resolved Time CoV-Risk 07/20/2023 07/20/2023 07/31/2023 1:22 AM EST CoV-Risk Comment:Per note documentation 06/06/2024 06/06/2024 10:40 AM EST CoV-Risk 08/31/2024 08/31/2024 09/11/2024 1:23 AM EST documented as of this encounter Care Teams Lead Blender Relationship Specialty Start Date End Date Ailin Araujo MD [address] [place] [address] PCP - General Family Medicine 05/13/17 documented as of this encounter Additional Source Comments The information contained in this document represents components of the legal health record. It is not the complete legal health record.[facility]
--- OUTSIDE RECORDS SUMMARY | 2025-07-10 12:33 | XMS_ITS | Encounter Summary ---
Author Organization [facility] Address [address] [facility] [address] [place] [address] Phone Care Team Providers Care Cement And Concrete Plant Worker Name Role Phone Ailin Araujo MD Primary Care Provider Encounter Details Date Type Department Care Team (Late st Contact Info) Description 05/07/2022 Procedure Pass [facility], Ct Scan - [address] [address] Social History Tobacco Use Types Packs/Day Years [...] 1:30 PM EST Office Visit [facility] Physical Therapy Clinic [address] [place] [address] ElianNatalie little Meliza, MONOGRAM MAKER [address] [address] Meaghan Houser, PT 8 [place] [address] 08/13/2025 11:15 AM EST Office Visit [facility] Physical Therapy Clinic [address] [place] [address] Yamilet Syedh Meliza, MONOGRAM MAKER [address] [address] Meaghan Houser, PT 8 [place] [address] 08/15/2025 1:30 PM EST Office Visit [facility] Physical Therapy [address] [place] [address] ElianNatalie little Meliza, [facility] [address] [address] [email or web address] Meaghan Houser, PT 8 [place] [address] 08/20/2025 11:15 AM EST Office Visit [facility] Physical Therapy [address] [place] [address] Natalie Syed, MONOGRAM MAKER [address] [address] Meaghan Houser, PT 8 [place] [address] 08/22/2025 1:30 PM EST Office Visit [facility] Physical Therapy Clinic [address] [place] [address] Natalie Syed, MONOGRAM MAKER [address] [address] Meaghan Houser, PT 8 [place] [address] 08/27/2025 11:15 AM EST Office Visit [facility] Physical Therapy Clinic [address] [place] [address] [place] [address] Natalie Syed, [address] [address] Meaghan Houser, PT 8 [place] [address] 08/29/2025 1:30 PM EST Office Visit [facility] Physical Therapy Clinic [address] [place] [address] [place] [address] Natalie Syed, [address] [address] Meaghan Houser, PT 8 [place] [address] 09/03/2025 11:15 AM EST Office Visit [facility] Physical Therapy Clinic [address] [place] [address] Natalie Syed, MONOGRAM MAKER [address] [address] Meaghan Houser, PT 8 [place] [address] 12/09/2025 12:30 PM EDT Office Visit [facility] Neurology Clinic [address] [place] [address] Natalie Syed FNP 15 [facility], 2nd [place] [address] [email or web address] 12/18/2025 11:30 AM EDT Office Visit [facility] [address] 3rd Floor, [address] [place] [address] Angelic Cesar DNP 22 [facility], [address] [place] [address] 01/17/2026 10:30 AM EDT Telemedicine [facility] Service [address] [place] [address], 8th Floor, [address] [place] [address] Nancy Cardenas MD, MBBS 55 [facility] 720 [place] [phone] [email or web address] [email or web address] documented as of this encounter Visit Diagnoses Not on filedocumented in this encounter Additional Health Concerns Infection Onset Date Last Indicated Resolved Time CoV-Risk 07/20/2023 07/20/2023 07/31/2023 1:22 AM EST CoV-Risk Comment:Per note documentation 06/06/2024 06/06/2024 10:40 AM EST CoV-Risk 08/31/2024 08/31/2024 09/11/2024 1:23 AM EST documented as of this encounter Care Teams Cement And Concrete Plant Worker Relationship Specialty Start Date End Date Ailin Araujo MD [address] [place] [address] PCP - General Family Medicine 05/13/17 documented as of this encounter Additional Source Comments The information contained in this document represents components of the legal health record. It is not the complete legal health record.[facility]
--- OUTSIDE RECORDS SUMMARY | 2025-07-10 12:34 | XMS_ITS | Encounter Summary ---
Author Organization [facility] Address [address] [facility] [address] [place] [address] Phone Care Team Providers Care Aircraft Engine Mechanic Name Role Phone Ailin Araujo MD Primary Care Provider Encounter Details Date Type Department Care Team (Late st Contact Info) Description 04/02/2022 Procedure Pass [facility], Ct Scan - [address] [address] Social History Tobacco Use Types Packs/Day Years [...] Description 08/08/2025 1:30 PM EST Office Visit [facility] Physical Therapy Clinic [address] [place] [address] ElianNatalie little Meliza, LOSS PREVENTION/SAFETY DISTRICT MANAGER [address] [address] Meaghan Houser, PT 8 [place] [address] 08/13/2025 11:15 AM EST Office Visit [facility] Physical Therapy Clinic [address] [place] [address] Yamilet Syedh Meliza, LOSS PREVENTION/SAFETY DISTRICT MANAGER [address] [address] Meaghan Houser, PT 8 [place] [address] 08/15/2025 1:30 PM EST Office Visit [facility] Physical Therapy [address] [place] [address] ElianNatalie little Meliza, [facility] [address] [address] [email or web address] Meaghan Houser, PT 8 [place] [address] 08/20/2025 11:15 AM EST Office Visit [facility] Physical Therapy [address] [place] [address] Natalie Syed, LOSS PREVENTION/SAFETY DISTRICT MANAGER [address] [address] Meaghan Houser, PT 8 [place] [address] 08/22/2025 1:30 PM EST Office Visit [facility] Physical Therapy Clinic [address] [place] [address] Natalie Syed, LOSS PREVENTION/SAFETY DISTRICT MANAGER [address] [address] Meaghan Houser, PT 8 [place] [address] 08/27/2025 11:15 AM EST Office Visit [facility] Physical Therapy Clinic [address] [place] [address] [place] [address] Natalie Syed, [address] [address] Meaghan Houser, PT 8 [place] [address] 08/29/2025 1:30 PM EST Office Visit [facility] Therapy Clinic [address] [place] [address] [place] [address] Natalie Syed, [address] [address] Meaghan Houser, PT 8 [place] [address] 09/03/2025 11:15 AM EST Office Visit [facility] Physical Therapy Clinic [address] [place] [address] Natalie Syed, LOSS PREVENTION/SAFETY DISTRICT MANAGER [address] [address] Meaghan Houser, PT 8 [place] [address] 12/09/2025 12:30 PM EDT Office Visit [facility] Neurology Clinic [address] [place] [address] Natalie Syed FNP 15 [facility], 2nd [place] [address] [email or web address] 12/18/2025 11:30 AM EDT Office Visit [facility] [address] 3rd Floor, [address] [place] [address] Angelic Cesar DNP 22 [facility], [address] [place] [address] 01/17/2026 10:30 AM EDT Telemedicine [facility] Service [address] [place] [address], 8th Floor, [address] [place] [address] Nancy Cardenas MD, MBBS 55 [facility] 720 [place] [phone] [email or web address] documented as of this encounter Visit Diagnoses Not on filedocumented in this encounter Additional Health Concerns Infection Onset Date Last Indicated Resolved Time CoV-Risk 07/20/2023 07/20/2023 07/31/2023 1:22 AM EST CoV-Risk Comment:Per note documentation 06/06/2024 06/06/2024 10:40 AM EST CoV-Risk 08/31/2024 08/31/2024 09/11/2024 1:23 AM EST documented as of this encounter Care Teams Aircraft Engine Mechanic Relationship Specialty Start Date End Date Ailin Araujo MD [address] [place] [address] PCP - General Family Medicine 05/13/17 documented as of this encounter Additional Source Comments The information contained in this document represents components of the legal health record. It is not the complete legal health record.[facility]
--- OUTSIDE RECORDS SUMMARY | 2025-07-10 12:34 | XMS_ITS | Encounter Summary ---
Author Organization [facility] Address [address] [facility] [address] [place] [address] Phone Care Team Providers Care Acid Purification Equipment Operator Name Role Phone Pcp, Not Required Primary Care Provider Ailin Middleton MD Primary Care Provider Encounter Details Date Type Department Care Team (Late Contact Info) Description 01/13/2017 Procedure Pass [facility] Imaging [address] [place] [address] Social History Tobacco Use Types Packs/Day Years [...] Visit [facility] [address] [place] [address] ElianNatalie little Meliza, LIVING MANAGER [address] [address] Meaghan Houser, PT 8 [place] [address] 08/13/2025 11:15 AM EST Office Visit [facility] [address] [place] [address] Yamilet Syedh Meliza, LIVING MANAGER [address] [address] Meaghan Houser, PT 8 [place] [address] 08/15/2025 1:30 PM EST Office Visit [facility] Physical Therapy [address] [place] [address] ElianNatalie little Meliza, [facility] [address] [address] [email or web address] Meaghan Houser, PT 8 [place] [address] 08/20/2025 11:15 AM EST Office Visit [facility] Physical Therapy [address] [place] [address] Natalie Syed, LIVING MANAGER [address] [address] Meaghan Houser, PT 8 [place] [address] 08/22/2025 1:30 PM EST Office Visit [facility] [address] [place] [address] Natalie Syed, LIVING MANAGER [address] [address] Meaghan Houser, PT 8 [place] [address] 08/27/2025 11:15 AM EST Office Visit [facility] [address] [place] [address] [place] [address] Natalie Syed, [address] [address] Meaghan Houser, PT 8 [place] [address] [email or web address] 08/29/2025 1:30 PM EST Office Visit [facility] [address] [place] [address] [place] [address] Natalie Syed, [address] [address] Meaghan Houser, PT 8 [place] [address] 09/03/2025 11:15 AM EST Office Visit [facility] [address] [place] [address] Natalie Syed, LIVING MANAGER [address] [address] Meaghan Houser, PT 8 [place] [address] [email or web address] 12/09/2025 12:30 PM EDT Office Visit [facility] [address] [place] [address] Natalie Syed FNP [address], 2nd [place] [address] [email or web address] 12/18/2025 11:30 AM EDT Office Visit [facility] [address] 3rd Floor, [address] [place] [address] Angelic Cesar DNP [address], [address] [place] [address] [email or web address] 01/17/2026 10:30 AM EDT Telemedicine [facility] Service [address] [place] [address], 8th Floor, [address] [place] [address] Nancy Cardenas MD, MBBS 55 [facility] [address] [place] [phone] JUAN [email or web address] documented as of this encounter Visit Diagnoses Not on filedocumented in this encounter Additional Health Concerns Infection Onset Date Last Indicated Resolved Time CoV-Risk 07/20/2023 07/20/2023 07/31/2023 1:22 AM EST CoV-Risk Comment:Per note documentation 06/06/2024 06/06/2024 10:40 AM EST CoV-Risk 08/31/2024 08/31/2024 09/11/2024 1:23 AM EST documented as of this encounter Care Teams Acid Purification Equipment Operator Relationship Specialty Start Date End Date Pcp, Not Required PCP - General 12/31/16 05/12/17 Ailin Araujo MD [address] [place] [id number] PCP - General Family Medicine 05/13/17 documented as of this encounter Additional Source Comments The information contained in this document represents components of the legal health record. It is not the complete legal health record.[facility]
--- OUTSIDE RECORDS SUMMARY | 2025-07-10 12:34 | XMS_ITS | Encounter Summary ---
Author Organization [facility] Address [address] [facility] [address] [place] [address] Phone Care Team Providers Care Gear Coding Machine Operator Name Role Phone Ailin Araujo MD Primary Care Provider Encounter Details Date Type Department Care Team (Late st Contact Info) Description 05/05/2022 Procedure Pass [facility], Ct Scan - [address] [address] Social History Tobacco Use Types Packs/Day Years [...] Description 08/08/2025 1:30 PM EST Office Visit [facility] [address] [place] [address] ElianNatalie little Meliza, DIESEL RETROFIT DESIGNER [address] [address] Meaghan Houser, PT 8 [place] [address] 08/13/2025 11:15 AM EST Office Visit [facility] [address] [place] [address] Yamilet Syedh Meliza, DIESEL RETROFIT DESIGNER [address] [address] Meaghan Huoser, PT 8 [place] [address] 08/15/2025 1:30 PM EST Office Visit [facility] Physical Therapy [address] [place] [address] ElianNatalie little Meliza, [facility] [address] [address] [email or web address] Meaghan Houser, PT 8 [place] [address] 08/20/2025 11:15 AM EST Office Visit [facility] Physical Therapy [address] [place] [address] Natalie Syed, DIESEL RETROFIT DESIGNER [address] [address] Meaghan Houser, PT 8 [place] [address] 08/22/2025 1:30 PM EST Office Visit [facility] [address] [place] [address] Natalie Syed, DIESEL RETROFIT DESIGNER [address] [address] Meaghan Houser, PT 8 [place] [address] 08/27/2025 11:15 AM EST Office Visit [facility] [address] [place] [address] [place] [address] Natalie Syed, [address] [address] Meaghan Houser, PT 8 [place] [address] 08/29/2025 1:30 PM EST Office Visit [facility] [address] [place] [address] [place] [address] Natalie Syed, [address] [address] Meaghan Houser, PT 8 [place] [address] 09/03/2025 11:15 AM EST Office Visit [facility] [address] [place] [address] Natalie Syed, DIESEL RETROFIT DESIGNER [address] [address] Meaghan Houser, PT 8 [place] [address] 12/09/2025 12:30 PM EDT Office Visit [facility] Neurology Clinic [address] [place] [address] Natalie Syed FNP 15 [facility], 2nd [place] [address] [email or web address] 12/18/2025 11:30 AM EDT Office Visit [facility] [address] 3[address] Floor, [address] [place] [address] Angelic Cesar DNP 22 [facility], [address] [place] [address] 01/17/2026 10:30 AM EDT Telemedicine [facility] Service [address] [place] [address], 8th Floor, [address] [place] [address] Nancy Cardenas MD, MBBS 55 [facility] 720 [place] [phone] JUAN [email or web address] documented as of this encounter Visit Diagnoses Not on filedocumented in this encounter Additional Health Concerns Infection Onset Date Last Indicated Resolved Time CoV-Risk 07/20/2023 07/20/2023 07/31/2023 1:22 AM EST CoV-Risk Comment:Per note documentation 06/06/2024 06/06/2024 10:40 AM EST CoV-Risk 08/31/2024 08/31/2024 09/11/2024 1:23 AM EST documented as of this encounter Care Teams Gear Coding Machine Operator Relationship Specialty Start Date End Date Ailin Araujo MD [address] [place] [address] PCP - General Family Medicine 05/13/17 documented as of this encounter Additional Source Comments The information contained in this document represents components of the legal health record. It is not the complete legal health record.[facility]
--- OUTSIDE RECORDS SUMMARY | 2025-07-10 12:34 | XMS_ITS | Encounter Summary ---
Author Organization [facility] Address [address] [facility] [address] [place] [address] Phone Care Team Providers Care Room Maid Name Role Phone Ailin Araujo MD Primary Care Provider Encounter Details Date Type Department Care Team (Late st Contact Info) Description 12/05/2018 EpicOnHand Encounter [facility] 6 Neuro ICU 55 [place] [phone] Tima Girard MD [address] [place] [address] [email or web address] Social History Tobacco Use Types Packs/Day [...] Office Visit [facility] [address] [place] [address] [place] [address] Natalie Syed, [address] [address] Meaghan Houser, PT 8 [place] [address] 08/13/2025 11:15 AM EST Office Visit [facility] [address] [place] [address] [place] [address] Natalie Syed, [address] [address] Meaghan Houser, PT 8 [place] [address] 08/15/2025 1:30 PM EST Office Visit [facility] Physical Therapy [address] [place] [address] Natalie Syed, [address] [address] Meaghan Houser, PT 8 [place] [address] 08/20/2025 11:15 AM EST Office Visit [facility] Physical Therapy [address] [place] [address] Natalie Syed, [address] [address] Meaghan Houser, PT 8 [place] [address] 08/22/2025 1:30 PM EST Office Visit [facility] [address] [place] [address] Natalie Syed, [address] [address] Meaghan Houser, PT 8 [place] [address] 08/27/2025 11:15 AM EST Office Visit [facility] [address] [place] [address] Natalie Syed, [address] [address] Meaghan Houser, PT 8 [place] [address] 08/29/2025 1:30 PM EST Office Visit [facility] Physical Therapy [address] [place] [address] Natalie Syed, [address] [address] Meaghan Houser, PT 8 [place] [address] 09/03/2025 11:15 AM EST Office Visit [facility] [address] [place] [address] Natalie Syed, [address] [address] Meaghan Houser, PT 8 [place] [address] 12/09/2025 12:30 PM EDT Office Visit [facility] Neurology Clinic [address] [place] [address] Natalie Syed, NATA 15 [facility], 2nd [place] [address] 12/18/2025 11:30 AM EDT Office Visit [facility] [address] 3rd Floor, [address] [place] [address] Angelic Cesar DNP 22 [facility], [address] [place] [address] 01/17/2026 10:30 AM EDT Telemedicine [facility] Service 55 [facility], 8th Floor, [address] [place] [address] Nancy Cardenas MD, MBBS [address] [phone] JUAN [email or web address] documented as of this encounter Visit Diagnoses Not on filedocumented in this encounter Additional Health Concerns Infection Onset Date Last Indicated Resolved Time CoV-Risk 07/20/2023 07/20/2023 07/31/2023 1:22 AM EST CoV-Risk Comment:Per note documentation 06/06/2024 06/06/2024 10:40 AM EST CoV-Risk 08/31/2024 08/31/2024 09/11/2024 1:23 AM EST documented as of this encounter Care Teams Room Maid Relationship Specialty Start Date End Date Ailin Araujo MD [address] [place] [address] PCP - General Family Medicine 05/13/17 documented as of this encounter Additional Source Comments The information contained in this document represents components of the legal health record. It is not the complete legal health record.[facility]
--- OUTSIDE RECORDS SUMMARY | 2025-07-10 12:34 | XMS_ITS | Encounter Summary ---
Author Organization [facility] Address [address] [facility] [address] [place] [address] Phone Care Team Providers Care Aoc Plans Intelligence Officer Chief Name Role Phone Ailin Araujo MD Primary Care Provider Encounter Details Date Type Department Care Team (Late st Contact Info) Description 01/19/2022 Procedure Pass [facility], Ct Scan - [address] [address] Social History Tobacco Use Types Packs/Day Years [...] Visit [facility] [address] [place] [address] Natalie Syed FNP [address] [address] Meaghan Houser, PT 8 [place] [address] 08/13/2025 11:15 AM EST Office Visit [facility] [address] [place] [address] Natalie Syed, [address] [address] Meaghan Houser, PT 8 [place] [address] [email or web address] 08/15/2025 1:30 PM EST Office Visit [facility] Physical Therapy [address] [place] [address] Natalie Syed, [address] [address] [email or web address] Meaghan Houser, PT 8 [place] [address] [email or web address] 08/20/2025 11:15 AM EST Office Visit [facility] Physical Therapy [facility] [address] [place] [address] Natalie Syed, [address] [address] Meaghan Houser, PT 8 [place] [address] 08/22/2025 1:30 PM EST Office Visit [facility] [address] [place] [address] Natalie Syed, ENGINEER AND GEOLOGIST [address] [address] Meaghan Houser, PT 8 [place] [address] [email or web address] 08/27/2025 11:15 AM EST Office Visit [facility] [address] [place] [address] KunalNatalie Meliza, ENGINEER AND GEOLOGIST [address] [address] Meaghan Houser, PT 8 [place] [address] [email or web address] 08/29/2025 1:30 PM EST Office Visit [facility] [address] [place] [address] ElianNatalie little Meliza, [facility] [address] [address] Meaghan Houser, PT 8 [place] [address] [email or web address] 09/03/2025 11:15 AM EST Office Visit [facility] [address] [place] [address] Natalie Syed, ENGINEER AND GEOLOGIST [address] [address] Meaghan Houser, PT 8 [place] [address] [email or web address] 12/09/2025 12:30 PM EDT Office Visit [facility] Neurology Clinic [address] [address] Natalie Syed, ENGINEER AND GEOLOGIST 15 [facility], 2nd [place] [address] 12/18/2025 11:30 AM EDT Office Visit [facility] [address] 3rd Floor, [address] [place] [address] Angelic Cesar DNP 22 [facility], [address] [place] [address] 01/17/2026 10:30 AM EDT Telemedicine [facility] Service 55 [facility], 8th Floor, [address] [place] [address] Nancy Cardenas MD, MBBS [address] [phone] JUAN [email or web address] documented as of this encounter Visit Diagnoses Not on filedocumented in this encounter Additional Health Concerns Infection Onset Date Last Indicated Resolved Time CoV-Risk 07/20/2023 07/20/2023 07/31/2023 1:22 AM EST CoV-Risk Comment:Per note documentation 06/06/2024 06/06/2024 10:40 AM EST CoV-Risk 08/31/2024 08/31/2024 09/11/2024 1:23 AM EST documented as of this encounter Care Teams Aoc Plans Intelligence Officer Chief Relationship Specialty Start Date End Date Ailin Araujo MD [address] [place] [address] PCP - General Family Medicine 05/13/17 documented as of this encounter Additional Source Comments The information contained in this document represents components of the legal health record. It is not the complete legal health record.[facility]
--- OUTSIDE RECORDS SUMMARY | 2025-07-10 12:34 | XMS_ITS | Encounter Summary ---
Author Organization [facility] Address [address] [facility] [address] [place] [address] Phone Care Team Providers Care Foundation Drill Operator Name Role Phone Ailin Araujo MD Primary Care Provider Encounter Details Date Type Department Care Team (Late st Contact Info) Description 11/21/2024 Procedure Pass [facility], Ct Scan - [address] [address] Social History Tobacco Use Types Packs/Day Years [...] Office Visit [facility] [address] [place] [address] [place] [address] Natalie Syed, ORTHOTIC AND PROSTHETIC TECHNICIAN [address] [address] Meaghan Houser, PT 8 [place] [address] 08/13/2025 11:15 AM EST Office Visit [facility] [address] [place] [address] [place] [address] Natalie Syed, ORTHOTIC AND PROSTHETIC TECHNICIAN [address] [place] [address] Meaghan Houser, PT 8 [place] [address] 08/15/2025 1:30 PM EST Office Visit [facility] Physical Therapy [address] [place] [address] Natalie Syed, [address] [address] Meaghan Houser, PT 8 [place] [address] 08/20/2025 11:15 AM EST Office Visit [facility] [address] [place] [address] Natalie Syed, ORTHOTIC AND PROSTHETIC TECHNICIAN [address] [address] Meaghan Houser, PT 8 [place] [address] 08/22/2025 1:30 PM EST Office Visit [facility] [address] [place] [address] [place] [address] Natalie Syed, [address] [address] Meaghan Houser, PT 8 [place] [address] 08/27/2025 11:15 AM EST Office Visit [facility] [address] [place] [address] [place] [address] Natalie Syed, [address] [address] Meaghan Houser, PT 8 [place] [address] 08/29/2025 1:30 PM EST Office Visit [facility] Therapy [address] [place] [address] Natalie Syed, [address] [address] Meaghan Houser, PT 8 [place] [address] 09/03/2025 11:15 AM EST Office Visit [facility] Physical Therapy [address] [place] [address] Natalie Syed, [address] [address] Meaghan Houser, PT 8 [place] [address] 12/09/2025 12:30 PM EDT Office Visit [facility] Neurology Clinic [address] [place] [address] Natalie Syed, ORTHOTIC AND PROSTHETIC TECHNICIAN [address], 2nd [place] [address] 12/18/2025 11:30 AM EDT Office Visit [facility] Associates [address] 3rd Floor, [address] [place] [address] Angelic Cesar DNP [address], [address] [place] [address] 01/17/2026 10:30 AM EDT Telemedicine [facility] Epilepsy Service 55 [facility], 8th Floor, [address] [place] [address] Nancy Cardenas MD, MBBS 55 [facility] 720 [place] [phone] JUAN [email or web address] documented as of this encounter Visit Diagnoses Not on filedocumented in this encounter Care Teams Foundation Drill Operator Relationship Specialty Start Date End Date Ailin Araujo MD 95 [place] [address] PCP - General Family Medicine 05/13/17 documented as of this encounter Additional Source Comments The information contained in this document represents components of the legal health record. It is not the complete legal health record.[facility]
--- OUTSIDE RECORDS SUMMARY | 2025-07-10 12:34 | XMS_ITS | Encounter Summary ---
Author Organization [facility] Address 399 [facility] [address] [place] [address] Phone Care Team Providers Care Landscape And Yardwork Laborer Name Role Phone Ailin Araujo MD Primary Care Provider Encounter Details Date Type Department Care Team (Late st Contact Info) Description 01/19/2022 Procedure Pass [facility], Ct Scan - [address] [address] Social History Tobacco Use Types Packs/Day Years [...] Description 08/08/2025 1:30 PM EST Office Visit [facility] [address] [place] [address] Natalie Syed FNP [address] [address] Meaghan Houser, PT 8 [place] [address] 08/13/2025 11:15 AM EST Office Visit [facility] [address] [place] [address] Natalie Syed, [address] [address] Meaghan Houser, PT 8 [place] [address] 08/15/2025 1:30 PM EST Office Visit [facility] Physical Therapy [address] [place] [address] Natalie Syed, [address] [address] [email or web address] Meaghan Houser, PT 8 [place] [address] 08/20/2025 11:15 AM EST Office Visit [facility] Physical Therapy [facility] [address] [place] [address] Natalie Syed, [address] [address] Meaghan Houser, PT 8 [place] [address] 08/22/2025 1:30 PM EST Office Visit [facility] [address] [place] [address] Natalie Syed, PUMP ATTENDANT [address] [address] Meaghan Houser, PT 8 [place] [address] 08/27/2025 11:15 AM EST Office Visit [facility] [address] [place] [address] KunalNatalie Meliza, PUMP ATTENDANT [address] [address] Meaghan Houser, PT 8 [place] [address] 08/29/2025 1:30 PM EST Office Visit [facility] [address] [place] [address] ElianNatalie little Meliza, [facility] [address] [address] Meaghan Houser, PT 8 [place] [address] 09/03/2025 11:15 AM EST Office Visit [facility] [address] [place] [address] Natalie Syed, PUMP ATTENDANT [address] [address] Meaghan Houser, PT 8 [place] [address] 12/09/2025 12:30 PM EDT Office Visit [facility] Neurology Clinic [address] [place] [address] Natalie Syed, PUMP ATTENDANT 15 [facility], 2nd [place] [address] 12/18/2025 11:30 AM EDT Office Visit [facility] [address] 3rd Floor, [address] [place] [address] Angelic Cesar DNP 22 [facility], [address] [place] [address] 01/17/2026 10:30 AM EDT Telemedicine [facility] Service 55 [facility], 8th Floor, [address] [place] [address] Nancy Cardenas MD, MBBS [address] [phone] JUAN [email or web address] documented as of this encounter Visit Diagnoses Not on filedocumented in this encounter Additional Health Concerns Infection Onset Date Last Indicated Resolved Time CoV-Risk 07/20/2023 07/20/2023 07/31/2023 1:22 AM EST CoV-Risk Comment:Per note documentation 06/06/2024 06/06/2024 10:40 AM EST CoV-Risk 08/31/2024 08/31/2024 09/11/2024 1:23 AM EST documented as of this encounter Care Teams Landscape And Yardwork Laborer Relationship Specialty Start Date End Date Ailin Araujo MD [address] [place] [id number] PCP - General Family Medicine 05/13/17 documented as of this encounter Additional Source Comments The information contained in this document represents components of the legal health record. It is not the complete legal health record.[facility]
--- OUTSIDE RECORDS SUMMARY | 2025-07-10 12:34 | XMS_ITS | Encounter Summary ---
Author Organization [facility] Address [address] [facility] [address] [place] [address] Phone Care Team Providers Care Extract Mixer Name Role Phone Ailin Araujo MD Primary Care Provider Encounter Details Date Type Department Care Team (Late st Contact Info) Description 05/05/2022 Procedure Pass [facility], Ct Scan - [address] [address] Social History Tobacco Use Types Packs/Day Years [...] Description 08/08/2025 1:30 PM EST Office Visit [facility] Physical Therapy Clinic [address] [place] [address] ElianNatalie little Meliza, SLEEP TECH [address] [address] Meaghan Houser, PT 8 [place] [address] 08/13/2025 11:15 AM EST Office Visit [facility] Physical Therapy Clinic [address] [place] [address] Yamilet Syedh Meliza, SLEEP TECH [address] [address] Meaghan Houser, PT 8 [place] [address] 08/15/2025 1:30 PM EST Office Visit [facility] Physical Therapy [address] [place] [address] ElianNatalie little Meliza, [facility] [address] [address] [email or web address] Meaghan Houser, PT 8 [place] [address] 08/20/2025 11:15 AM EST Office Visit [facility] Physical Therapy [address] [place] [address] Natalie Syed, SLEEP TECH [address] [address] Meaghan Houser, PT 8 [place] [address] 08/22/2025 1:30 PM EST Office Visit [facility] Physical Therapy Clinic [address] [place] [address] Natalie Syed, SLEEP TECH [address] [address] Meaghan Houser, PT 8 [place] [address] 08/27/2025 11:15 AM EST Office Visit [facility] Physical Therapy Clinic [address] [place] [address] [place] [address] Natalie Syed, [address] [address] Meaghan Houser, PT 8 [place] [address] [email or web address] 08/29/2025 1:30 PM EST Office Visit [facility] Physical Therapy Clinic [address] [place] [address] [place] [address] Natalie Syed, [address] [address] Meaghan Houser, PT 8 [place] [address] 09/03/2025 11:15 AM EST Office Visit [facility] Physical Therapy Clinic [address] [place] [address] Natalie Syed, SLEEP TECH [address] [address] Meaghan Houser, PT 8 [place] [address] [email or web address] 12/09/2025 12:30 PM EDT Office Visit [facility] Neurology Clinic [address] [place] [address] Natalie Syed FNP 15 [facility], 2nd [place] [address] [email or web address] 12/18/2025 11:30 AM EDT Office Visit [facility] [address] 3rd Floor, [address] [place] [address] Angelic Cesar DNP 22 [facility], [address] [place] [address] 01/17/2026 10:30 AM EDT Telemedicine [facility] Service [address] [place] [address], 8th Floor, [address] [place] [address] Nancy Cardenas MD, MBBS 55 [facility] 720 [place] [phone] JUAN [email or web address] documented as of this encounter Visit Diagnoses Not on filedocumented in this encounter Additional Health Concerns Infection Onset Date Last Indicated Resolved Time CoV-Risk 07/20/2023 07/20/2023 07/31/2023 1:22 AM EST CoV-Risk Comment:Per note documentation 06/06/2024 06/06/2024 10:40 AM EST CoV-Risk 08/31/2024 08/31/2024 09/11/2024 1:23 AM EST documented as of this encounter Care Teams Extract Mixer Relationship Specialty Start Date End Date Ailin Araujo MD [address] [place] [address] PCP - General Family Medicine 05/13/17 documented as of this encounter Additional Source Comments The information contained in this document represents components of the legal health record. It is not the complete legal health record.[facility]
--- OUTSIDE RECORDS SUMMARY | 2025-07-10 12:34 | XMS_ITS | Encounter Summary ---
Author Organization [facility] Address [address] [facility] [address] [place] [address] Phone Care Team Providers Care Photoengraving Apprentice Name Role Phone Ailin Araujo MD Primary Care Provider Encounter Details Date Type Department Care Team (Late st Contact Info) Description 05/04/2022 Procedure Pass [facility], Ct Scan - [address] [address] Social History Tobacco Use Types Packs/Day Years [...] Description 08/08/2025 1:30 PM EST Office Visit [facility] Therapy Clinic [address] [place] [address] ElianNatalie little Meliza, MACHINE TOOL ELECTRICIAN [address] [address] Meaghan Houser, PT 8 [place] [address] 08/13/2025 11:15 AM EST Office Visit [facility] Therapy Clinic [address] [place] [address] Yamilet Syedh Meliza, MACHINE TOOL ELECTRICIAN [address] [address] Meaghan Houser, PT 8 [place] [address] 08/15/2025 1:30 PM EST Office Visit [facility] Physical Therapy [address] [place] [address] ElianNatalie little Meliza, [facility] [address] [address] [email or web address] Meaghan Houser, PT 8 [place] [address] 08/20/2025 11:15 AM EST Office Visit [facility] Physical Therapy [address] [place] [address] Natalie Syed, MACHINE TOOL ELECTRICIAN [address] [address] Meaghan Houser, PT 8 [place] [address] 08/22/2025 1:30 PM EST Office Visit [facility] Therapy Clinic [address] [place] [address] Natalie Syed, MACHINE TOOL ELECTRICIAN [address] [address] Meaghan Houser, PT 8 [place] [address] 08/27/2025 11:15 AM EST Office Visit [facility] Physical Therapy Clinic [address] [place] [address] [place] [address] Natalie Syed, [address] [address] Meaghan Houser, PT 8 [place] [address] 08/29/2025 1:30 PM EST Office Visit [facility] Therapy Clinic [address] [place] [address] [place] [address] Natalie Syed, [address] [address] Meaghan Houser, PT 8 [place] [address] 09/03/2025 11:15 AM EST Office Visit [facility] Therapy Clinic [address] [place] [address] Natalie Syed, MACHINE TOOL ELECTRICIAN [address] [address] Meaghan Houser, PT 8 [place] [address] 12/09/2025 12:30 PM EDT Office Visit [facility] [address] [place] [address] Natalie Syed FNP 15 [place] [facility], 2nd [place] [address] [email or web address] 12/18/2025 11:30 AM EDT Office Visit [facility] [address] 3rd Floor, [address] [place] [address] Angelic Cesar DNP 22 [place] [facility], [address] [place] [address] 01/17/2026 10:30 AM EDT Telemedicine [facility] [address] [place] [address], 8th Floor, [address] [place] [address] Nancy Cardenas MD, MBBS 55 [facility] 720 [place] [phone] JUAN [email or web address] documented as of this encounter Visit Diagnoses Not on filedocumented in this encounter Additional Health Concerns Infection Onset Date Last Indicated Resolved Time CoV-Risk 07/20/2023 07/20/2023 07/31/2023 1:22 AM EST CoV-Risk Comment:Per note documentation 06/06/2024 06/06/2024 10:40 AM EST CoV-Risk 08/31/2024 08/31/2024 09/11/2024 1:23 AM EST documented as of this encounter Care Teams Photoengraving Apprentice Relationship Specialty Start Date End Date Ailin Araujo MD [address] [place] [address] PCP - General Family Medicine 05/13/17 documented as of this encounter Additional Source Comments The information contained in this document represents components of the legal health record. It is not the complete legal health record.[facility]
--- OUTSIDE RECORDS SUMMARY | 2025-07-10 12:34 | XMS_ITS | Encounter Summary ---
Author Organization [facility] Address [address] [facility] [address] [place] [address] Phone Care Team Providers Care Automatic Winder Operator Name Role Phone Ailin Araujo MD Primary Care Provider Encounter Details Date Type Department Care Team (Late st Contact Info) Description 05/04/2022 Procedure Pass [facility], Ct Scan - [address] [address] Social History Tobacco Use Types Packs/Day Years [...] Description 08/08/2025 1:30 PM EST Office Visit [facility] Physical Therapy Clinic [address] [place] [address] ElianNatalie little Meliza, SKIVER HAND [address] [address] Meaghan Houser, PT 8 [place] [address] 08/13/2025 11:15 AM EST Office Visit [facility] Physical Therapy Clinic [address] [place] [address] Yamilet Syedh Meliza, SKIVER HAND [address] [address] Meaghan Houser, PT 8 [place] [address] 08/15/2025 1:30 PM EST Office Visit [facility] Physical Therapy [address] [place] [address] ElianNatalie little Meliza, [facility] [address] [address] [email or web address] Meaghan Houser, PT 8 [place] [address] 08/20/2025 11:15 AM EST Office Visit [facility] Physical Therapy [address] [place] [address] Natalie Syed, SKIVER HAND [address] [address] Meaghan Houser, PT 8 [place] [address] 08/22/2025 1:30 PM EST Office Visit [facility] Physical Therapy Clinic [address] [place] [address] Natalie Syed, SKIVER HAND [address] [address] Meaghan Houser, PT 8 [place] [address] 08/27/2025 11:15 AM EST Office Visit [facility] Physical Therapy Clinic [address] [place] [address] [place] [address] Natalie Syed, [address] [address] Meaghan Houser, PT 8 [place] [address] 08/29/2025 1:30 PM EST Office Visit [facility] Physical Therapy Clinic [address] [place] [address] [place] [address] Natalie Syed, [address] [address] Meaghan Houser, PT 8 [place] [address] 09/03/2025 11:15 AM EST Office Visit [facility] Physical Therapy Clinic [address] [place] [address] Natalie Syed, SKIVER HAND [address] [address] Meaghan Houser, PT 8 [place] [address] 12/09/2025 12:30 PM EDT Office Visit [facility] Neurology Clinic [address] [place] [address] Natalie Syed FNP 15 [facility], 2nd [place] [address] [email or web address] 12/18/2025 11:30 AM EDT Office Visit [facility] [address] 3rd Floor, [address] [place] [address] Angelic Cesar DNP 22 [facility], [address] [place] [address] 01/17/2026 10:30 AM EDT Telemedicine [facility] [address] [place] [address], 8th Floor, [address] [place] [address] Nancy Cardenas MD, MBBS 55 [facility] 720 [place] [phone] JUAN [email or web address] documented as of this encounter Visit Diagnoses Not on filedocumented in this encounter Additional Health Concerns Infection Onset Date Last Indicated Resolved Time CoV-Risk 07/20/2023 07/20/2023 07/31/2023 1:22 AM EST CoV-Risk Comment:Per note documentation 06/06/2024 06/06/2024 10:40 AM EST CoV-Risk 08/31/2024 08/31/2024 09/11/2024 1:23 AM EST documented as of this encounter Care Teams Automatic Winder Operator Relationship Specialty Start Date End Date Ailin Araujo MD [address] [place] [address] PCP - General Family Medicine 05/13/17 documented as of this encounter Additional Source Comments The information contained in this document represents components of the legal health record. It is not the complete legal health record.[facility]
--- OUTSIDE RECORDS SUMMARY | 2025-07-10 12:34 | XMS_ITS | Encounter Summary ---
Author Organization [facility] Address [address] [facility] [address] [place] [address] Phone Care Team Providers Care Lieutenant Firefighter Name Role Phone Ailin Araujo MD Primary Care Provider Encounter Details Date Type Department Care Team (Late st Contact Info) Description 09/06/2022 Procedure Pass [facility], Ct Scan - [address] [address] Social History Tobacco Use Types Packs/Day Years [...] Description 08/08/2025 1:30 PM EST Office Visit [facility] Physical Therapy Clinic [address] [place] [address] [place] [address] Natalie Syed, NUTRITION SERVICES ASSISTANT [address] [place] [address] Meaghan Houser, PT 8 [place] [address] 08/13/2025 11:15 AM EST Office Visit [facility] Physical Therapy [address] [place] [address] Natalie Syed, [address] [address] Meaghan Houser, PT 8 [place] [address] 08/15/2025 1:30 PM EST Office Visit [facility] Physical Therapy [address] [place] [address] Natalie Syed, [address] [address] Meaghan Houser, PT 8 [place] [address] 08/20/2025 11:15 AM EST Office Visit [facility] Physical Therapy Clinic [address] [place] [address] Natalie Syed, NUTRITION SERVICES ASSISTANT [address] [place] [address] Meaghan Houser, PT 8 [place] [address] 08/22/2025 1:30 PM EST Office Visit [facility] Physical Therapy Clinic [address] [place] [address] Natalie Syed, NUTRITION SERVICES ASSISTANT [address] [address] Meaghan Houser, PT 8 [place] [address] 08/27/2025 11:15 AM EST Office Visit [facility] Physical Therapy [address] [place] [address] Natalie Syed, [address] [address] Meaghan Houser, PT 8 [place] [address] 08/29/2025 1:30 PM EST Office Visit [facility] Physical Therapy [address] [place] [address] Natalie Syed, [address] [address] Meaghan Houser, PT 8 [place] [address] 09/03/2025 11:15 AM EST Office Visit [facility] Physical Therapy Clinic [address] [place] [address] Natalie Syed, NUTRITION SERVICES ASSISTANT [address] [address] Meaghan Houser, PT 8 [place] [address] 12/09/2025 12:30 PM EDT Office Visit [facility] Neurology Clinic [address] [place] [address] Natalie Syed, NUTRITION SERVICES ASSISTANT 15 [facility], 2nd [place] [address] 12/18/2025 11:30 AM EDT Office Visit [facility] [address] 3rd Floor, [address] [place] [address] Angelic Cesar, NEAL 22 [facility], [address] [place] [address] 01/17/2026 10:30 AM EDT Telemedicine [facility] Epilepsy Service 55 [facility], 8th Floor, [address] [place] [address] Nancy Cardenas MD, MBBS [address] [phone] JUAN [email or web address] documented as of this encounter Visit Diagnoses Not on filedocumented in this encounter Additional Health Concerns Infection Onset Date Last Indicated Resolved Time CoV-Risk 07/20/2023 07/20/2023 07/31/2023 1:22 AM EST CoV-Risk Comment:Per note documentation 06/06/2024 06/06/2024 10:40 AM EST CoV-Risk 08/31/2024 08/31/2024 09/11/2024 1:23 AM EST documented as of this encounter Care Teams Lieutenant Firefighter Relationship Specialty Start Date End Date Ailin Araujo MD [address] [place] [address] PCP - General Family Medicine 05/13/17 documented as of this encounter Additional Source Comments The information contained in this document represents components of the legal health record. It is not the complete legal health record.[facility]
--- OUTSIDE RECORDS SUMMARY | 2025-07-10 12:34 | XMS_ITS | Encounter Summary ---
Author Organization [facility] Address [address] [facility] [address] [place] [address] Phone Care Team Providers Care Bar Pointer Name Role Phone Ailin Araujo MD Primary Care Provider Encounter Details Date Type Department Care Team (Late st Contact Info) Description 10/27/2022 Procedure Pass [facility], Ct Scan - [address] [address] Social History Tobacco Use Types Packs/Day Years [...] Description 08/08/2025 1:30 PM EST Office Visit [facility] Physical Therapy Clinic [address] [place] [address] [place] [address] Natalie Syed, NETWORK RELAY TESTER [address] [place] [address] Meaghan Houser, PT 8 [place] [address] 08/13/2025 11:15 AM EST Office Visit [facility] Physical Therapy [address] [place] [address] Natalie Syed, [address] [address] Meaghan Houser, PT 8 [place] [address] 08/15/2025 1:30 PM EST Office Visit [facility] Physical Therapy [address] [place] [address] Natalie Syed, [address] [address] Meaghan Houser, PT 8 [place] [address] 08/20/2025 11:15 AM EST Office Visit [facility] Physical Therapy Clinic [address] [place] [address] Natalie Syed, [address] [address] Meaghan Houser, PT 8 [place] [address] 08/22/2025 1:30 PM EST Office Visit [facility] Physical Therapy Clinic [address] [place] [address] Natalie Syed, NETWORK RELAY TESTER [address] [address] Meaghan Houser, PT 8 [place] [address] 08/27/2025 11:15 AM EST Office Visit [facility] Physical Therapy Clinic [address] [place] [address] [place] [address] Natalie Syed, NETWORK RELAY TESTER [address] [place] [address] Meaghan Houser, PT 8 [place] [address] 08/29/2025 1:30 PM EST Office Visit [facility] Physical Therapy [address] [place] [address] Natalie Syed, NETWORK RELAY TESTER [address] [address] Meaghan Houser, PT 8 [place] [address] 09/03/2025 11:15 AM EST Office Visit [facility] Physical Therapy Clinic [address] [place] [address] Natalie Syed, NETWORK RELAY TESTER [address] [address] Meaghan Houser, PT 8 [place] [address] 12/09/2025 12:30 PM EDT Office Visit [facility] Neurology Clinic [address] [place] [address] Natalie Syed, NETWORK RELAY TESTER 15 [facility], 2nd [place] [address] 12/18/2025 11:30 AM EDT Office Visit [facility] [address] 3rd Floor, [address] [place] [address] Angelic Cesar DNP 22 [facility], [address] [place] [address] 01/17/2026 10:30 AM EDT Telemedicine [facility] Epilepsy Service 55 [facility], 8th Floor, [address] [place] [address] Nancy Cardenas MD, MBBS [address] [phone] JUAN [email or web address] documented as of this encounter Visit Diagnoses Not on filedocumented in this encounter Additional Health Concerns Infection Onset Date Last Indicated Resolved Time CoV-Risk 07/20/2023 07/20/2023 07/31/2023 1:22 AM EST CoV-Risk Comment:Per note documentation 06/06/2024 06/06/2024 10:40 AM EST CoV-Risk 08/31/2024 08/31/2024 09/11/2024 1:23 AM EST documented as of this encounter Care Teams Bar Pointer Relationship Specialty Start Date End Date Ailin Araujo MD [address] [place] [address] PCP - General Family Medicine 05/13/17 documented as of this encounter Additional Source Comments The information contained in this document represents components of the legal health record. It is not the complete legal health record.[facility]
--- OUTSIDE RECORDS SUMMARY | 2025-07-10 12:34 | XMS_ITS | Encounter Summary ---
Author Organization [facility] Address [address] [facility] [address] [place] [address] Phone Care Team Providers Care Jewelry Mold Maker Name Role Phone Ailin Araujo MD Primary Care Provider Encounter Details Date Type Department Care Team (Late st Contact Info) Description 11/21/2024 Procedure Pass [facility], Ct Scan - [address] [address] Social History Tobacco Use Types Packs/Day Years [...] Office Visit [facility] [address] [place] [address] [place] [address] Natalie Syed, PROFESSOR OF RHETORIC [address] [address] Meaghan Houser, PT 8 [place] [address] 08/13/2025 11:15 AM EST Office Visit [facility] Physical Therapy Clinic [address] [place] [address] [place] [address] Natalie Syed, PROFESSOR OF RHETORIC [address] [place] [address] Meaghan Houser, PT 8 [place] [address] 08/15/2025 1:30 PM EST Office Visit [facility] Physical Therapy [address] [place] [address] Natalie Syed, [address] [address] Meaghan Houser, PT 8 [place] [address] 08/20/2025 11:15 AM EST Office Visit [facility] Physical Therapy Clinic [address] [place] [address] Natalie Syed, PROFESSOR OF RHETORIC [address] [address] Meaghan Houser, PT 8 [place] [address] 08/22/2025 1:30 PM EST Office Visit [facility] Physical Therapy Clinic [address] [place] [address] [place] [address] Natalie Syed, [address] [address] Meaghan Houser, PT 8 [place] [address] 08/27/2025 11:15 AM EST Office Visit [facility] Physical Therapy Clinic [address] [place] [address] [place] [address] Natalie Syed, [address] [address] Meaghan Houser, PT 8 [place] [address] 08/29/2025 1:30 PM EST Office Visit [facility] Physical Therapy [address] [place] [address] Natalie Syed, [address] [address] Meaghan Houser, PT 8 [place] [address] 09/03/2025 11:15 AM EST Office Visit [facility] Physical Therapy [address] [place] [address] Natalie Syed, [address] [address] Meaghan Houser, PT 8 [place] [address] 12/09/2025 12:30 PM EDT Office Visit [facility] Neurology Clinic [address] [place] [address] Natalie Syed, PROFESSOR OF RHETORIC [address], 2nd [place] [address] 12/18/2025 11:30 AM EDT Office Visit [facility] [address] 3rd Floor, [address] [place] [address] Angelic Cesar DNP 22 [facility], [address] [place] [address] 01/17/2026 10:30 AM EDT Telemedicine [facility] Epilepsy Service 55 [facility], 8th Floor, [address] [place] [address] Nancy Cardenas MD, MBBS 55 [facility] 720 [place] [phone] JUAN [email or web address] documented as of this encounter Visit Diagnoses Not on filedocumented in this encounter Care Teams Jewelry Mold Maker Relationship Specialty Start Date End Date Ailin Araujo MD 95 [place] [address] PCP - General Family Medicine 05/13/17 documented as of this encounter Additional Source Comments The information contained in this document represents components of the legal health record. It is not the complete legal health record.[facility]
--- OUTSIDE RECORDS SUMMARY | 2025-07-10 12:34 | XMS_ITS | Encounter Summary ---
Author Organization [facility] Address [address] [facility] [address] [place] [address] Phone Care Team Providers Care Pattern Hand Name Role Phone Ailin Araujo MD Primary Care Provider Encounter Details Date Type Department Care Team (Late st Contact Info) Description 10/24/2022 Procedure Pass [facility], Ct Scan - [address] [address] Social History Tobacco Use Types Packs/Day Years [...] Office Visit [facility] [address] [place] [address] [place] [address] Natalie Syed, DINKER [address] [place] [address] [email or web address] Meaghan Houser, PT 8 [place] [address] [email or web address] 08/13/2025 11:15 AM EST Office Visit [facility] Therapy [address] [place] [address] Natalie Syed, [address] [address] [email or web address] Meaghan Houser, PT 8 [place] [address] [email or web address] 08/15/2025 1:30 PM EST Office Visit [facility] [address] [place] [address] Natalie Syed, [address] [address] [email or web address] Meaghan Houser, PT 8 [place] [address] [email or web address] 08/20/2025 11:15 AM EST Office Visit [facility] [address] [place] [address] Natalie Syed, DINKER [address] [place] [address] [email or web address] Meaghan Houser, PT 8 [place] [address] [email or web address] 08/22/2025 1:30 PM EST Office Visit [facility] [address] [place] [address] Natalie Syed, DINKER [address] [address] Meaghan Houser, PT 8 [place] [address] [email or web address] 08/27/2025 11:15 AM EST Office Visit [facility] [address] [place] [address] Natalie Syed, [address] [address] [email or web address] Meaghan Houser, PT 8 [place] [address] [email or web address] 08/29/2025 1:30 PM EST Office Visit [facility] [address] [place] [address] Natalie Syed, [address] [address] Meaghan Houser, PT 8 [place] [address] 09/03/2025 11:15 AM EST Office Visit [facility] [address] [place] [address] Natalie Syed, DINKER [address] [address] Meaghan Houser, PT 8 [place] [address] 12/09/2025 12:30 PM EDT Office Visit [facility] [address] [place] [address] Natalie Syed, DINKER 15 [facility], 2nd [place] [address] 12/18/2025 11:30 AM EDT Office Visit [facility] [address] 3rd Floor, [address] [place] [address] Angelic Cesar, NEAL 22 [facility], [address] [place] [address] 01/17/2026 10:30 AM EDT Telemedicine [facility] Epilepsy Service 55 [facility], 8th Floor, [address] [place] [address] Nancy Cardenas MD, MBBS [address] [phone] [email or web address] documented as of this encounter Visit Diagnoses Not on filedocumented in this encounter Additional Health Concerns Infection Onset Date Last Indicated Resolved Time CoV-Risk 07/20/2023 07/20/2023 07/31/2023 1:22 AM EST CoV-Risk Comment:Per note documentation 06/06/2024 06/06/2024 10:40 AM EST CoV-Risk 08/31/2024 08/31/2024 09/11/2024 1:23 AM EST documented as of this encounter Care Teams Pattern Hand Relationship Specialty Start Date End Date Ailin Araujo MD [address] [place] [address] PCP - General Family Medicine 05/13/17 documented as of this encounter Additional Source Comments The information contained in this document represents components of the legal health record. It is not the complete legal health record.[facility]
--- OUTSIDE RECORDS SUMMARY | 2025-07-10 12:34 | XMS_ITS | Encounter Summary ---
Author Organization [facility] Address [address] [facility] [address] [place] [address] Phone Care Team Providers Care Lodge Attendant Name Role Phone Ailin Araujo MD Primary Care Provider Encounter Details Date Type Department Care Team (Late st Contact Info) Description 05/05/2022 Procedure Pass [facility], Ct Scan - [address] [address] Social History Tobacco Use Types Packs/Day Years [...] Description 08/08/2025 1:30 PM EST Office Visit [facility] [address] [place] [address] ElianNatalie little Meliza, PROTOTYPE FABRICATOR [address] [address] Meaghan Houser, PT 8 [place] [address] 08/13/2025 11:15 AM EST Office Visit [facility] [address] [place] [address] Yamilet ySedh Meliza, PROTOTYPE FABRICATOR [address] [address] Meaghan Houser, PT 8 [place] [address] 08/15/2025 1:30 PM EST Office Visit [facility] Physical Therapy [address] [place] [address] ElianNatalie little Meliza, [facility] [address] [address] [email or web address] Meaghan Houser, PT 8 [place] [address] 08/20/2025 11:15 AM EST Office Visit [facility] Physical Therapy [address] [place] [address] Natalie Syed, PROTOTYPE FABRICATOR [address] [address] Meaghan Houser, PT 8 [place] [address] 08/22/2025 1:30 PM EST Office Visit [facility] [address] [place] [address] Natalie Syed, PROTOTYPE FABRICATOR [address] [address] Meaghan Houser, PT 8 [place] [address] 08/27/2025 11:15 AM EST Office Visit [facility] [address] [place] [address] [place] [address] Natalie Syed, [address] [address] Meaghan Houser, PT 8 [place] [address] 08/29/2025 1:30 PM EST Office Visit [facility] [address] [place] [address] [place] [address] Natalie Syed, [address] [address] Meaghan Houser, PT 8 [place] [address] 09/03/2025 11:15 AM EST Office Visit [facility] [address] [place] [address] Natalie Syed, PROTOTYPE FABRICATOR [address] [address] Meaghan Houser, PT 8 [place] [address] 12/09/2025 12:30 PM EDT Office Visit [facility] [address] [place] [address] Natalie Syed FNP 15 [facility], 2nd [place] [address] [email or web address] 12/18/2025 11:30 AM EDT Office Visit [facility] [address] 3rd Floor, [address] [place] [address] Angelic Cesar DNP 22 [facility], [address] [place] [address] 01/17/2026 10:30 AM EDT Telemedicine [facility] Service [address] [place] [address], 8th Floor, [address] [place] [address] Nancy Cardenas MD, MBBS 55 [facility] [address] [place] [phone] JUAN [email or web address] documented as of this encounter Visit Diagnoses Not on filedocumented in this encounter Additional Health Concerns Infection Onset Date Last Indicated Resolved Time CoV-Risk 07/20/2023 07/20/2023 07/31/2023 1:22 AM EST CoV-Risk Comment:Per note documentation 06/06/2024 06/06/2024 10:40 AM EST CoV-Risk 08/31/2024 08/31/2024 09/11/2024 1:23 AM EST documented as of this encounter Care Teams Lodge Attendant Relationship Specialty Start Date End Date Ailin Araujo MD [address] [place] [address] PCP - General Family Medicine 05/13/17 documented as of this encounter Additional Source Comments The information contained in this document represents components of the legal health record. It is not the complete legal health record.[facility]
--- OUTSIDE RECORDS SUMMARY | 2025-07-10 12:34 | XMS_ITS | Encounter Summary ---
Author Organization [facility] Address [address] [facility] [address] [place] [address] Phone Care Team Providers Care Paper Supervisor Name Role Phone Pcp, Not Required Primary Care Provider Ailin Middleton MD Primary Care Provider Encounter Details Date Type Department Care Team (Late Contact Info) Description 01/13/2017 Procedure Pass [facility] Imaging [address] [place] [address] Social History Tobacco Use Types Packs/Day Years [...] Visit [facility] [address] [place] [address] ElianNatalie little Meliza, MEDICAL SECRETARY TEACHER [address] [address] Meaghan Houser, PT 8 [place] [address] 08/13/2025 11:15 AM EST Office Visit [facility] [address] [place] [address] Yamilet Syedh Meliza, MEDICAL SECRETARY TEACHER [address] [address] Meaghan Houser, PT 8 [place] [address] 08/15/2025 1:30 PM EST Office Visit [facility] Physical Therapy [address] [place] [address] ElianNatalie little Meliza, [facility] [address] [address] [email or web address] Meaghan Houser, PT 8 [place] [address] 08/20/2025 11:15 AM EST Office Visit [facility] Physical Therapy [address] [place] [address] Natalie Syed, MEDICAL SECRETARY TEACHER [address] [address] Meaghan Hosuer, PT 8 [place] [address] 08/22/2025 1:30 PM EST Office Visit [facility] [address] [place] [address] Natalie Syed, MEDICAL SECRETARY TEACHER [address] [address] Meaghan Houser, PT 8 [place] [address] 08/27/2025 11:15 AM EST Office Visit [facility] [address] [place] [address] [place] [address] Natalie Syed, [address] [address] Meaghan Houser, PT 8 [place] [address] [email or web address] 08/29/2025 1:30 PM EST Office Visit [facility] [address] [place] [address] [place] [address] Natalie Syed, [address] [address] Meaghan Houser, PT 8 [place] [address] 09/03/2025 11:15 AM EST Office Visit [facility] [address] [place] [address] Natalie Syed, MEDICAL SECRETARY TEACHER [address] [address] Meaghan Houser, PT 8 [place] [address] [email or web address] 12/09/2025 12:30 PM EDT Office Visit [facility]rology Clinic [address] [place] [address] Natalie Syed FNP 15 [facility], 2nd [place] [address] [email or web address] 12/18/2025 11:30 AM EDT Office Visit [facility] [address] 3rd Floor, [address] [place] [address] Angelic Cesar DNP 22 [facility], [address] [place] [address] [email or web address] 01/17/2026 10:30 AM EDT Telemedicine [facility] Service [address] [place] [address], 8th Floor, [address] [place] [address] Nancy Cardenas MD, MBBS 55 [facility] 720 [place] [phone] JUAN [email or web address] documented as of this encounter Visit Diagnoses Not on filedocumented in this encounter Additional Health Concerns Infection Onset Date Last Indicated Resolved Time CoV-Risk 07/20/2023 07/20/2023 07/31/2023 1:22 AM EST CoV-Risk Comment:Per note documentation 06/06/2024 06/06/2024 10:40 AM EST CoV-Risk 08/31/2024 08/31/2024 09/11/2024 1:23 AM EST documented as of this encounter Care Teams Paper Supervisor Relationship Specialty Start Date End Date Pcp, Not Required PCP - General 12/31/16 05/12/17 Ailin Araujo MD [address] [place] [address] PCP - General Family Medicine 05/13/17 documented as of this encounter Additional Source Comments The information contained in this document represents components of the legal health record. It is not the complete legal health record.[facility]
--- OUTSIDE RECORDS SUMMARY | 2025-07-10 12:34 | XMS_ITS | Encounter Summary ---
Author Organization [facility] Address [address] [facility] [address] [place] [address] Phone Care Team Providers Care Quality Specialist Name Role Phone Ailin Araujo MD Primary Care Provider Encounter Details Date Type Department Care Team (Late st Contact Info) Description 10/27/2022 Procedure Pass [facility], Ct Scan - [address] [address] Social History Tobacco Use Types Packs/Day Years [...] Description 08/08/2025 1:30 PM EST Office Visit [facility] [address] [place] [address] [place] [address] Natalie Syed, SOD FARMER [address] [place] [address] Meaghan Houser, PT 8 [place] [address] 08/13/2025 11:15 AM EST Office Visit [facility] Physical Therapy [address] [place] [address] Natalie Syed, [address] [address] Meaghan Houser, PT 8 [place] [address] 08/15/2025 1:30 PM EST Office Visit [facility] Physical Therapy [address] [place] [address] Natalie Syed, [address] [address] Meaghan Houser, PT 8 [place] [address] 08/20/2025 11:15 AM EST Office Visit [facility] Therapy Clinic [address] [place] [address] Natalie Syed, [address] [address] Meaghan Houser, PT 8 [place] [address] 08/22/2025 1:30 PM EST Office Visit [facility] Therapy Clinic [address] [place] [address] Natalie Syed, SOD FARMER [address] [address] Meaghan Houser, PT 8 [place] [address] 08/27/2025 11:15 AM EST Office Visit [facility] Therapy Clinic [address] [place] [address] [place] [address] Natalie Syed, SOD FARMER [address] [place] [address] Meaghan Houser, PT 8 [place] [address] 08/29/2025 1:30 PM EST Office Visit [facility] Physical Therapy [address] [place] [address] Natalie Syed, SOD FARMER [address] [address] Meaghan Houser, PT 8 [place] [address] 09/03/2025 11:15 AM EST Office Visit [facility] [address] [place] [address] Natalie Syed, SOD FARMER [address] [address] Meaghan Houser, PT 8 [place] [address] 12/09/2025 12:30 PM EDT Office Visit [facility]rology Clinic [address] [place] [address] Natalie Syed, SOD FARMER 15 [facility], 2nd floor [place] [address] 12/18/2025 11:30 AM EDT Office Visit [facility] [address] 3rd Floor, [address] [place] [address] Angelic Cesar DNP 22 [facility], [address] [place] [address] 01/17/2026 10:30 AM EDT Telemedicine [facility] Epilepsy Service 55 [facility], 8th Floor, [address] [place] [address] Nancy Cardenas MD, MBBS [address] [phone] JUAN [email or web address] documented as of this encounter Visit Diagnoses Not on filedocumented in this encounter Additional Health Concerns Infection Onset Date Last Indicated Resolved Time CoV-Risk 07/20/2023 07/20/2023 07/31/2023 1:22 AM EST CoV-Risk Comment:Per note documentation 06/06/2024 06/06/2024 10:40 AM EST CoV-Risk 08/31/2024 08/31/2024 09/11/2024 1:23 AM EST documented as of this encounter Care Teams Quality Specialist Relationship Specialty Start Date End Date Ailin Araujo MD [address] [place] [address] PCP - General Family Medicine 05/13/17 documented as of this encounter Additional Source Comments The information contained in this document represents components of the legal health record. It is not the complete legal health record.[facility]
--- OUTSIDE RECORDS SUMMARY | 2025-07-10 12:34 | XMS_ITS | Encounter Summary ---
Author Organization [facility] Address [address] [facility] [address] [place] [address] Phone Care Team Providers Care Legislative Assistant Name Role Phone Ailin Araujo MD Primary Care Provider Encounter Details Date Type Department Care Team (Late st Contact Info) Description 10/27/2022 Procedure Pass [facility], Ct Scan - [address] [address] Social History Tobacco Use Types Packs/Day Years [...] Description 08/08/2025 1:30 PM EST Office Visit [facility] Therapy [facility] [address] [place] [address] [place] [address] Natalie Syed, ELECTROLOGIST [address] [place] [address] Meaghan Houser, PT 8 [place] [address] 08/13/2025 11:15 AM EST Office Visit [facility] Physical Therapy [address] [place] [address] Natalie Syed, [address] [address] Meaghan Houser, PT 8 [place] [address] 08/15/2025 1:30 PM EST Office Visit [facility] Physical Therapy [address] [place] [address] Natalie Syed, [address] [address] Meaghan Houser, PT 8 [place] [address] 08/20/2025 11:15 AM EST Office Visit [facility] Therapy [facility] [address] [place] [address] Natalie Syed, [address] [address] Meaghan Houser, PT 8 [place] [address] 08/22/2025 1:30 PM EST Office Visit [facility] Therapy Clinic [address] [place] [address] Natalie Syed, ELECTROLOGIST [address] [address] Meaghan Houser, PT 8 [place] [address] 08/27/2025 11:15 AM EST Office Visit [facility] [address] [place] [address] [place] [address] Natalie Syed, ELECTROLOGIST [address] [place] [address] Meaghan Houser, PT 8 [place] [address] 08/29/2025 1:30 PM EST Office Visit [facility] Physical Therapy [address] [place] [address] Natalie Syed, ELECTROLOGIST [address] [address] Meaghan Houser, PT 8 [place] [address] 09/03/2025 11:15 AM EST Office Visit [facility] Therapy Clinic [address] [place] [address] Natalie Syed, ELECTROLOGIST [address] [address] Meaghan Houser, PT 8 [place] [address] 12/09/2025 12:30 PM EDT Office Visit [facility] Neurology Clinic [address] [place] [address] Natalie Syed, ELECTROLOGIST 15 [facility], 2nd [place] [address] 12/18/2025 11:30 AM EDT Office Visit [facility] [address] 3rd Floor, [address] [place] [address] Angelic Cesar DNP 22 [facility], [address] [place] [address] 01/17/2026 10:30 AM EDT Telemedicine [facility] Epilepsy Service 55 [facility], 8th Floor, [address] [place] [address] Nancy Cardenas MD, MBBS [address] [phone] JUAN [email or web address] documented as of this encounter Visit Diagnoses Not on filedocumented in this encounter Additional Health Concerns Infection Onset Date Last Indicated Resolved Time CoV-Risk 07/20/2023 07/20/2023 07/31/2023 1:22 AM EST CoV-Risk Comment:Per note documentation 06/06/2024 06/06/2024 10:40 AM EST CoV-Risk 08/31/2024 08/31/2024 09/11/2024 1:23 AM EST documented as of this encounter Care Teams Legislative Assistant Relationship Specialty Start Date End Date Ailin Araujo MD [address] [place] [address] PCP - General Family Medicine 05/13/17 documented as of this encounter Additional Source Comments The information contained in this document represents components of the legal health record. It is not the complete legal health record.[facility]
--- OUTSIDE RECORDS SUMMARY | 2025-07-10 12:34 | XMS_ITS | Encounter Summary ---
Author Organization [facility] Address [address] [facility] [address] [place] [address] Phone Care Team Providers Care Post Tronic Machine Operator Name Role Phone Ailin Araujo MD Primary Care Provider Encounter Details Date Type Department Care Team (Late st Contact Info) Description 04/19/[address] [facility], Ct Scan - [address] [address] Social History Tobacco Use Types Packs/Day Years [...] Description 08/08/2025 1:30 PM EST Office Visit [facility] Physical Therapy Clinic [address] [place] [address] ElianNatalie little Meliza, FISHER TRAMMEL NET [address] [address] Meaghan Houser, PT 8 [place] [address] 08/13/2025 11:15 AM EST Office Visit [facility] Therapy Clinic [address] [place] [address] Yamilet Syedh Meliza, FISHER TRAMMEL NET [address] [address] Meaghan Houser, PT 8 [place] [address] 08/15/2025 1:30 PM EST Office Visit [facility] Physical Therapy [address] [place] [address] ElianNatalie little Meliza, [facility] [address] [address] [email or web address] Meaghan Houser, PT 8 [place] [address] 08/20/2025 11:15 AM EST Office Visit [facility] Physical Therapy [address] [place] [address] Natalie Syed, FISHER TRAMMEL NET [address] [address] Meaghan Houser, PT 8 [place] [address] 08/22/2025 1:30 PM EST Office Visit [facility] Therapy Clinic [address] [place] [address] Natalie Syed, FISHER TRAMMEL NET [address] [address] Meaghan Houser, PT 8 [place] [address] 08/27/2025 11:15 AM EST Office Visit [facility] Therapy Clinic [address] [place] [address] [place] [address] Natalie Syed, [address] [address] Meaghan Houser, PT 8 [place] [address] 08/29/2025 1:30 PM EST Office Visit [facility] [address] [place] [address] [place] [address] Natalie Syed, [address] [address] Meaghan Houser, PT 8 [place] [address] 09/03/2025 11:15 AM EST Office Visit [facility] [address] [place] [address] Natalie Syed, FISHER TRAMMEL NET [address] [address] Meaghan Houser, PT 8 [place] [address] 12/09/2025 12:30 PM EDT Office Visit [facility] [address] [place] [address] Natalie Syed FNP 15 [facility], 2nd [place] [address] [email or web address] 12/18/2025 11:30 AM EDT Office Visit [facility] [address] 3rd Floor, [address] [place] [address] Angelic Cesar DNP 22 [facility], [address] [place] [address] 01/17/2026 10:30 AM EDT Telemedicine [facility] Service [address] [place] [address], 8th Floor, [address] [place] [address] Nancy Cardenas MD, MBBS 55 [facility] 720 [place] [phone] JUAN [email or web address] documented as of this encounter Visit Diagnoses Not on filedocumented in this encounter Additional Health Concerns Infection Onset Date Last Indicated Resolved Time CoV-Risk 07/20/2023 07/20/2023 07/31/2023 1:22 AM EST CoV-Risk Comment:Per note documentation 06/06/2024 06/06/2024 10:40 AM EST CoV-Risk 08/31/2024 08/31/2024 09/11/2024 1:23 AM EST documented as of this encounter Care Teams Post Tronic Machine Operator Relationship Specialty Start Date End Date Ailin Araujo MD [address] [place] [address] PCP - General Family Medicine 05/13/17 documented as of this encounter Additional Source Comments The information contained in this document represents components of the legal health record. It is not the complete legal health record.[facility]
--- OUTSIDE RECORDS SUMMARY | 2025-07-10 12:34 | XMS_ITS | Encounter Summary ---
Author Organization [facility] Address [address] [facility] [address] [place] [address] Phone Care Team Providers Care Exhaust Worker Name Role Phone Ailin Araujo MD Primary Care Provider Encounter Details Date Type Department Care Team (Late st Contact Info) Description 09/06/2022 Procedure Pass [facility], Ct Scan - [address] [address] Social History Tobacco Use Types Packs/Day Years [...] Description 08/08/2025 1:30 PM EST Office Visit [facility] [address] [place] [address] [place] [address] Natalie Syed, SIGNAL TIMER [address] [place] [address] [email or web address] Meaghan Houser, PT 8 [place] [address] [email or web address] 08/13/2025 11:15 AM EST Office Visit [facility] Physical Therapy [address] [place] [address] Natalie Syed, [address] [address] [email or web address] Meaghan Houser, PT 8 [place] [address] [email or web address] 08/15/2025 1:30 PM EST Office Visit [facility] Physical Therapy [address] [place] [address] Natalie Syed, [address] [address] [email or web address] Meaghan Houser, PT 8 [place] [address] [email or web address] 08/20/2025 11:15 AM EST Office Visit [facility] [address] [place] [address] Natalie Syed, SIGNAL TIMER [address] [place] [address] [email or web address] Meaghan Houser, PT 8 [place] [address] [email or web address] 08/22/2025 1:30 PM EST Office Visit [facility] [address] [place] [address] Natalie Syed, SIGNAL TIMER [address] [address] Meaghan Houser, PT 8 [place] [address] [email or web address] 08/27/2025 11:15 AM EST Office Visit [facility] Physical Therapy [address] [place] [address] Natalie Syed, [address] [address] [email or web address] Meaghan Houser, PT 8 [place] [address] [email or web address] 08/29/2025 1:30 PM EST Office Visit [facility] Physical Therapy [address] [place] [address] Natalie Syed, [address] [address] Meaghan Houser, PT 8 [place] [address] 09/03/2025 11:15 AM EST Office Visit [facility] [address] [place] [address] Natalie Syed, SIGNAL TIMER [address] [address] Meaghan Houser, PT 8 [place] [address] 12/09/2025 12:30 PM EDT Office Visit [facility] Neurology Clinic [address] [place] [address] Natalie Syed, SIGNAL TIMER 15 [facility], 2nd [place] [address] 12/18/2025 11:30 AM EDT Office Visit [facility] [address] 3rd Floor, [address] [place] [address] Angelic Cesar, NEAL 22 [facility], [address] [place] [address] 01/17/2026 10:30 AM EDT Telemedicine [facility] Epilepsy Service 55 [facility], 8th Floor, [address] [place] [address] Nancy Cardenas MD, MBBS [address] [phone] [email or web address] documented as of this encounter Visit Diagnoses Not on filedocumented in this encounter Additional Health Concerns Infection Onset Date Last Indicated Resolved Time CoV-Risk 07/20/2023 07/20/2023 07/31/2023 1:22 AM EST CoV-Risk Comment:Per note documentation 06/06/2024 06/06/2024 10:40 AM EST CoV-Risk 08/31/2024 08/31/2024 09/11/2024 1:23 AM EST documented as of this encounter Care Teams Exhaust Worker Relationship Specialty Start Date End Date Ailin Araujo MD [address] [place] [address] PCP - General Family Medicine 05/13/17 documented as of this encounter Additional Source Comments The information contained in this document represents components of the legal health record. It is not the complete legal health record.[facility]
--- OUTSIDE RECORDS SUMMARY | 2025-07-10 12:34 | XMS_ITS | Encounter Summary ---
Author Organization [facility] Address 399 [facility] [address] [place] [address] Phone Care Team Providers Care Conditioning Machine Operator Name Role Phone Ailin Araujo MD Primary Care Provider Encounter Details Date Type Department Care Team (Late st Contact Info) Description 04/19/2022 Procedure Pass [facility], Ct Scan - [address] [address] Social History Tobacco Use Types Packs/Day Years [...] Description 08/08/2025 1:30 PM EST Office Visit [facility] Therapy [facility] [address] [place] [address] ElianNatalie little Meliza, DIRECTOR SALES SUPPORT [address] [address] Meaghan Houser, PT 8 [place] [address] 08/13/2025 11:15 AM EST Office Visit [facility] [address] [place] [address] Yamilet Syedh Meliza, DIRECTOR SALES SUPPORT [address] [address] Meaghan Houser, PT 8 [place] [address] 08/15/2025 1:30 PM EST Office Visit [facility] Physical Therapy [address] [place] [address] ElianNatalie little Meliza, [facility] [address] [address] [email or web address] Meaghan Houser, PT 8 [place] [address] 08/20/2025 11:15 AM EST Office Visit [facility] Physical Therapy [address] [place] [address] Natalie Syed, DIRECTOR SALES SUPPORT [address] [address] Meaghan Houser, PT 8 [place] [address] 08/22/2025 1:30 PM EST Office Visit [facility] Therapy [facility] [address] [place] [address] Natalie Syed, DIRECTOR SALES SUPPORT [address] [address] Meaghan Houser, PT 8 [place] [address] 08/27/2025 11:15 AM EST Office Visit [facility] Physical Therapy Clinic [address] [place] [address] [place] [address] Natalie Syed, [address] [address] Meaghan Houser, PT 8 [place] [address] 08/29/2025 1:30 PM EST Office Visit [facility] Therapy Clinic [address] [place] [address] [place] [address] Natalie Syed, [address] [address] Meaghan Houser, PT 8 [place] [address] 09/03/2025 11:15 AM EST Office Visit [facility] Therapy [facility] [address] [place] [address] Natalie Syed, DIRECTOR SALES SUPPORT [address] [address] Meaghan Houser, PT 8 [place] [address] 12/09/2025 12:30 PM EDT Office Visit [facility] Neurology Clinic [address] [place] [address] Natalie Syed FNP 15 [facility], 2nd [place] [address] [email or web address] 12/18/2025 11:30 AM EDT Office Visit [facility] [address] 3rd Floor, [address] [place] [address] Angelic Cesar DNP 22 [facility], [address] [place] [address] 01/17/2026 10:30 AM EDT Telemedicine [facility] Service [address] [place] [address], 8th Floor, [address] [place] [address] Nancy Cardenas MD, MBBS 55 [facility] [address] [place] [phone] JUAN [email or web address] documented as of this encounter Visit Diagnoses Not on filedocumented in this encounter Additional Health Concerns Infection Onset Date Last Indicated Resolved Time CoV-Risk 07/20/2023 07/20/2023 07/31/2023 1:22 AM EST CoV-Risk Comment:Per note documentation 06/06/2024 06/06/2024 10:40 AM EST CoV-Risk 08/31/2024 08/31/2024 09/11/2024 1:23 AM EST documented as of this encounter Care Teams Conditioning Machine Operator Relationship Specialty Start Date End Date Ailin Araujo MD [address] [place] [address] PCP - General Family Medicine 05/13/17 documented as of this encounter Additional Source Comments The information contained in this document represents components of the legal health record. It is not the complete legal health record.[facility]
--- OUTSIDE RECORDS SUMMARY | 2025-07-10 12:34 | XMS_ITS | Encounter Summary ---
Author Organization [facility] Address 399 [facility] [address] [place] [address] Phone Care Team Providers Care Instructor Nurse Name Role Phone Ailin Araujo MD Primary Care Provider Encounter Details Date Type Department Care Team (Late st Contact Info) Description 01/20/2023 Procedure Pass [facility] 30 [place] [address] Social History Tobacco Use Types Packs/Day Years [...] 1:30 PM EST Office Visit [facility] Therapy [facility] [address] [place] [address] Natalie Syed, NATA [address] [address] Meaghan Houser, PT 8 [place] [address] 08/13/2025 11:15 AM EST Office Visit [facility] [address] [place] [address] Natalie Syed FNP [address] [place] [address] Meaghan Houser, PT 8 [place] [address] 08/15/2025 1:30 PM EST Office Visit [facility] [address] [place] [address] Natalie Syed FNP [address] [address] Meaghan Houser, PT 8 [place] [address] 08/20/2025 11:15 AM EST Office Visit [facility] [address] [place] [address] [place] [address] Natalie Syed, [address] [address] Meaghan Houser, PT 8 [place] [address] 08/22/2025 1:30 PM EST Office Visit [facility] [address] [place] [address] [place] [address] Natalie Syed, [address] [address] Meaghan Houser, PT 8 [place] [address] 08/27/2025 11:15 AM EST Office Visit [facility] Physical Therapy [address] [place] [address] Natalie Syed, [address] [address] Meaghan Houser, PT 8 [place] [address] 08/29/2025 1:30 PM EST Office Visit [facility] Physical Therapy [facility] [address] [place] [address] Natalie Syed, [address] [address] Meaghan Houser, PT 8 [place] [address] 09/03/2025 11:15 AM EST Office Visit [facility] [address] [place] [address] Natalie Syed, SUPERVISOR TOY ASSEMBLY 15 [facility], 2nd [place] [address] [email or web address] Meaghan Houser, PT 8 [place] [address] 12/09/2025 12:30 PM EDT Office Visit [facility] Neurology [facility] [address] [place] [address] Natalie Syed, SUPERVISOR TOY ASSEMBLY 15 [facility], 2nd [place] [address] 12/18/2025 11:30 AM EDT Office Visit [facility] [address] 3rd Floor, [address] [place] [address] Angelic Cesar DNP 22 [facility], [address] [place] [address] 01/17/2026 10:30 AM EDT Telemedicine [facility] Epilepsy Service [address] [place] [address], 8th Floor, [address] [place] [address] Nancy Cardenas MD, MBBS [address] [place] [phone] JUAN [email or web address] documented as of this encounter Visit Diagnoses Not on filedocumented in this encounter Additional Health Concerns Infection Onset Date Last Indicated Resolved Time CoV-Risk 07/20/2023 07/20/2023 07/31/2023 1:22 AM EST CoV-Risk Comment:Per note documentation 06/06/2024 06/06/2024 10:40 AM EST CoV-Risk 08/31/2024 08/31/2024 09/11/2024 1:23 AM EST documented as of this encounter Care Teams Instructor Nurse Relationship Specialty Start Date End Date Ailin Araujo MD [address] [place] [address] PCP - General Family Medicine 05/13/17 documented as of this encounter Additional Source Comments The information contained in this document represents components of the legal health record. It is not the complete legal health record.[facility]
--- OUTSIDE RECORDS SUMMARY | 2025-07-10 12:34 | XMS_ITS | Encounter Summary ---
Author Organization [facility] Address [address] [facility] [address] [place] [address] Phone Care Team Providers Care Director Of Extension Work Name Role Phone Ailin Araujo MD Primary Care Provider Encounter Details Date Type Department Care Team (Late st Contact Info) Description 10/24/2022 Procedure Pass [facility], Ct Scan - [address] [address] Social History Tobacco Use Types Packs/Day Years [...] 1:30 PM EST Office Visit [facility] Physical Therapy Clinic [address] [place] [address] [place] [address] Natalie Syed, CENTER HOLE REAMER [address] [place] [address] Meaghan Houser, PT 8 [place] [address] 08/13/2025 11:15 AM EST Office Visit [facility] Physical Therapy [address] [place] [address] Natalie Syed, [address] [address] Meaghan Houser, PT 8 [place] [address] 08/15/2025 1:30 PM EST Office Visit [facility] Physical Therapy [address] [place] [address] Natalie Syed, [address] [address] Meaghan Houser, PT 8 [place] [address] 08/20/2025 11:15 AM EST Office Visit [facility] Physical Therapy Clinic [address] [place] [address] Natalie Syed, CENTER HOLE REAMER [address] [place] [address] Meaghan Houser, PT 8 [place] [address] 08/22/2025 1:30 PM EST Office Visit [facility] Physical Therapy Clinic [address] [place] [address] Natalie Syed, CENTER HOLE REAMER [address] [address] Meaghan Houser, PT 8 [place] [address] 08/27/2025 11:15 AM EST Office Visit [facility] Physical Therapy [address] [place] [address] Natalie Syed, [address] [address] Meaghan Houser, PT 8 [place] [address] 08/29/2025 1:30 PM EST Office Visit [facility] Physical Therapy [address] [place] [address] Natalie Syed, [address] [address] Meaghan Houser, PT 8 [place] [address] 09/03/2025 11:15 AM EST Office Visit [facility] Physical Therapy Clinic [address] [place] [address] Natalie Syed, CENTER HOLE REAMER [address] [address] Meaghan Houser, PT 8 [place] [address] 12/09/2025 12:30 PM EDT Office Visit [facility] Neurology Clinic [address] [place] [address] Natalie Syed, CENTER HOLE REAMER 15 [facility], 2nd [place] [address] 12/18/2025 11:30 AM EDT Office Visit [facility] [address] 3rd Floor, [address] [place] [address] Angelic Cesar, NEAL 22 [facility], [address] [place] [address] 01/17/2026 10:30 AM EDT Telemedicine [facility] Epilepsy Service 55 [facility], 8th Floor, [address] [place] [address] Nancy Cardenas MD, MBBS [address] [phone] JUAN [email or web address] documented as of this encounter Visit Diagnoses Not on filedocumented in this encounter Additional Health Concerns Infection Onset Date Last Indicated Resolved Time CoV-Risk 07/20/2023 07/20/2023 07/31/2023 1:22 AM EST CoV-Risk Comment:Per note documentation 06/06/2024 06/06/2024 10:40 AM EST CoV-Risk 08/31/2024 08/31/2024 09/11/2024 1:23 AM EST documented as of this encounter Care Teams Director Of Extension Work Relationship Specialty Start Date End Date Ailin Araujo MD [address] [place] [address] PCP - General Family Medicine 05/13/17 documented as of this encounter Additional Source Comments The information contained in this document represents components of the legal health record. It is not the complete legal health record.[facility]
--- OUTSIDE RECORDS SUMMARY | 2025-07-10 12:34 | XMS_ITS | Encounter Summary ---
Author Organization [facility] Address 399 [facility] [address] [place] [address] Phone Care Team Providers Care Air Surveillance Operator Name Role Phone Ailin Araujo MD Primary Care Provider Encounter Details Date Type Department Care Team (Late st Contact Info) Description 10/27/2020 Procedure Pass [facility], [facility] [address] [place] [address], 6th [place] [address] Social History Tobacco Use Types Packs/Day Years [...] Visit [facility] [address] [place] [address] [place], Natalie Meliza, TRAILHEAD CONSTRUCTION WORKER[address] [address] Meaghan Houser, PT 8 [place] [address] 08/13/2025 11:15 AM EST Office Visit [facility] Physical Therapy Clinic [address] [place] [address] Natalie Syed, [address] [address] Meaghan Houser, PT 8 [place] [address] [email or web address] 08/15/2025 1:30 PM EST Office Visit [facility] Physical Therapy [address] [place] [address] Natalie Syed, [address] [address] [email or web address] Meaghan Houser, PT 8 [place] [address] [email or web address] 08/20/2025 11:15 AM EST Office Visit [facility] Physical Therapy [facility] [address] [place] [address] Natalie Syed, [address] [address] Meaghan Houser, PT 8 [place] [address] [email or web address] 08/22/2025 1:30 PM EST Office Visit [facility] Therapy Clinic [address] [place] [address] Natalie Syed, TRAILHEAD CONSTRUCTION WORKER [address] [address] Meaghan Houser, PT 8 [place] [address] 08/27/2025 11:15 AM EST Office Visit [facility] Physical Therapy Clinic [address] [place] [address] Kunal Natalie Meliza, TRAILHEAD CONSTRUCTION WORKER [address] [address] Meaghan Houser, PT 8 [place] [address] [email or web address] 08/29/2025 1:30 PM EST Office Visit [facility] Therapy Clinic [address] [place] [address] KunalNatalie Meliza, [facility] [address] [address] Meaghan Houser, PT 8 [place] [address] [email or web address] 09/03/2025 11:15 AM EST Office Visit [facility] Therapy Clinic [address] [place] [address] Natalie Syed, TRAILHEAD CONSTRUCTION WORKER [address] [address] Meaghan Houser, PT 8 [place] [address] [email or web address] 12/09/2025 12:30 PM EDT Office Visit [facility] [address] [address] Natalie Syed, TRAILHEAD CONSTRUCTION WORKER 15 [facility], 2nd [place] [address] [email or web address] 12/18/2025 11:30 AM EDT Office Visit [facility] [address] 3rd Floor, [address] [place] [address] Angelic Cesar DNP 22 [facility], [address] [place] [address] 01/17/2026 10:30 AM EDT Telemedicine [facility] 55 [facility], 8th Floor, [address] [place] [address] Nancy Cardenas MD, MBBS [address] [phone] JUAN [email or web address] documented as of this encounter Visit Diagnoses Not on filedocumented in this encounter Additional Health Concerns Infection Onset Date Last Indicated Resolved Time CoV-Risk 07/20/2023 07/20/2023 07/31/2023 1:22 AM EST CoV-Risk Comment:Per note documentation 06/06/2024 06/06/2024 10:40 AM EST CoV-Risk 08/31/2024 08/31/2024 09/11/2024 1:23 AM EST documented as of this encounter Care Teams Air Surveillance Operator Relationship Specialty Start Date End Date Ailin Araujo MD [address] [place] [address] PCP - General Family Medicine 05/13/17 documented as of this encounter Additional Source Comments The information contained in this document represents components of the legal health record. It is not the complete legal health record.[facility]
--- OUTSIDE RECORDS SUMMARY | 2025-07-10 12:35 | XMS_ITS | Encounter Summary ---
Author Organization [facility] Address 399 [facility] [address] [place] [address] Phone Care Team Providers Care Silk Screen Processor Name Role Phone Ailin Araujo MD Primary Care Provider Encounter Details Date Type Department Care Team (Late st Contact Info) Description 11/16/2022 Procedure Pass [facility], Ct Scan - [address] [address] Social History Tobacco Use Types Packs/Day Years [...] [facility] [address] [place] [address] [place] [address] Natalie Syed FNP [address] [address] Meaghan Houser, PT 8 [place] [address] [email or web address] 08/13/2025 11:15 AM EST Office Visit [facility] Therapy [facility] [address] [place] [address] Natalie Syed FNP [address] [address] [email or web address] Meaghan Houser, PT 8 [place] [address] [email or web address] 08/15/2025 1:30 PM EST Office Visit [facility] Physical Therapy [facility] [address] [place] [address] Natalie Syed FNP [address] [address] [email or web address] Meaghan Houser, PT 8 [place] [address] [email or web address] 08/20/2025 11:15 AM EST Office Visit [facility] Physical Therapy Clinic [address] [place] [address] Natalie Syed FNP [address] [address] [email or web address] Meaghan Houser, PT 8 [place] [address] 08/22/2025 1:30 PM EST Office Visit [facility] Physical Therapy Clinic [address] [place] [address] Natalie Syed, [address] [address] [email or web address] Meaghan Houser, PT 8 [place] [address] 08/27/2025 11:15 AM EST Office Visit [facility] Physical Therapy [address] [place] [address] Natalie Syed, [address] [address] [email or web address] Meaghan Houser, PT 8 [place] [address] 08/29/2025 1:30 PM EST Office Visit [facility] Physical Therapy [address] [place] [address] Natalie Syed, [address] [address] [email or web address] Meaghan Houser, PT 8 [place] [address] 09/03/2025 11:15 AM EST Office Visit [facility] Therapy [facility] [address] [place] [address] [place] [address] Natalie Syed, VP LAB 15 [facility], 2nd [place] [address] Meaghan Houser, PT 8 [place] [address] 12/09/2025 12:30 PM EDT Office Visit [facility]rology [facility] [address] [place] [address] Natalie Syed, VP LAB 15 [facility], 2nd [place] [address] [email or web address] 12/18/2025 11:30 AM EDT Office Visit [facility] 22 [facility] 3rd Floor, [address] [place] [address] Angelic Cesar, NEAL 22 [facility], [address] [place] [address] 01/17/2026 10:30 AM EDT Telemedicine [facility] Service [address] [place] [address], 8th Floor, [address] [place] [address] Nancy Cardenas MD, MBBS [address] [place] [phone] JUAN [email or web address] documented as of this encounter Visit Diagnoses Not on filedocumented in this encounter Additional Health Concerns Infection Onset Date Last Indicated Resolved Time CoV-Risk 07/20/2023 07/20/2023 07/31/2023 1:22 AM EST CoV-Risk Comment:Per note documentation 06/06/2024 06/06/2024 10:40 AM EST CoV-Risk 08/31/2024 08/31/2024 09/11/2024 1:23 AM EST documented as of this encounter Care Teams Silk Screen Processor Relationship Specialty Start Date End Date Ailin Araujo MD [address] [place] [address] PCP - General Family Medicine 05/13/17 documented as of this encounter Additional Source Comments The information contained in this document represents components of the legal health record. It is not the complete legal health record.[facility]
--- OUTSIDE RECORDS SUMMARY | 2025-07-10 12:35 | XMS_ITS | Encounter Summary ---
Author Organization [facility] Address [address] [place] [phone] Phone Care Team Providers Care Regrader Name Role Phone Ailin Araujo MD Primary Care Provider Encounter Details Date Type Department Care Team (Late st Contact Info) Description 05/05/2022 Procedure Pass [facility], Ct Scan - [address] [address] Social History Tobacco Use Types Packs/Day Years [...] [facility] [address] [place] [address] ElianNatalie little Meliza, HAT BLOCKING MACHINE OPERATOR [address] [address] Meaghan Houser, PT 8 [place] [address] 08/13/2025 11:15 AM EST Office Visit [facility] [address] [place] [address] Yamilet Syedh Meliza, HAT BLOCKING MACHINE OPERATOR [address] [address] Meaghan Houser, PT 8 [place] [address] 08/15/2025 1:30 PM EST Office Visit [facility] [address] [place] [address] ElianNatalie little Meliza, [facility] [address] [address] [email or web address] Meaghan Houser, PT 8 [place] [address] 08/20/2025 11:15 AM EST Office Visit [facility] [address] [place] [address] Natalie Syed, HAT BLOCKING MACHINE OPERATOR [address] [address] Meaghan Houser, PT 8 [place] [address] 08/22/2025 1:30 PM EST Office Visit [facility] [address] [place] [address] Natalie ySed, HAT BLOCKING MACHINE OPERATOR [address] [address] Meaghan Houser, PT 8 [place] [address] 08/27/2025 11:15 AM EST Office Visit [facility] [address] [place] [address] [place] [address] Natalie Syed, [address] [address] Meaghan Houser, PT 8 [place] [address] 08/29/2025 1:30 PM EST Office Visit [facility] [address] [place] [address] [place] [address] Natalie Syed, [address] [address] Meaghan Houser, PT 8 [place] [address] 09/03/2025 11:15 AM EST Office Visit [facility] [address] [place] [address] Natalie Syed, HAT BLOCKING MACHINE OPERATOR [address] [address] Meaghan Houser, PT 8 [place] [address] 12/09/2025 12:30 PM EDT Office Visit [facility] [address] [place] [address] Natalie Syed FNP [address] [facility], 2nd [place] [address] [email or web address] 12/18/2025 11:30 AM EDT Office Visit [facility] [address] Floor, [address] [place] [address] Angelic Cesar DNP [address] [facility], [address] [place] [address] 01/17/2026 10:30 AM EDT Telemedicine [facility] [address] [place] [address], 8th Floor, [address] [place] [address] Nancy Cardenas MD, MBBS [address] [facility] [address] [place] [id number] [email or web address] documented as of this encounter Visit Diagnoses Not on filedocumented in this encounter Additional Health Concerns Infection Onset Date Last Indicated Resolved Time CoV-Risk 07/20/2023 07/20/2023 07/31/2023 1:22 AM EST CoV-Risk Comment:Per note documentation 06/06/2024 06/06/2024 10:40 AM EST CoV-Risk 08/31/2024 08/31/2024 09/11/2024 1:23 AM EST documented as of this encounter Care Teams Regrader Relationship Specialty Start Date End Date Ailin Araujo MD [address] [place] [phone] PCP - General Family Medicine 05/13/17 documented as of this encounter Additional Source Comments The information contained in this document represents components of the legal health record. It is not the complete legal health record.[facility]
== END 2025-07-10 11:58 | disposition home or self-care (01) ==
LOC: HO.HKA 10:57
PROVIDERS: PCP Family Medicine; Visit Provider Internal Medicine Nephrology
DX: N18.31 Chronic kidney disease, stage 3a (principal); I95.1 Orthostatic hypotension
CPT/HCPCS: 99214

== ENCOUNTER → 2025-07-10 10:57 | Outpatient (BNVA) | payer MEDICARE, MEDICAID, SELFPAY | PROVIDERS: PCP Family Medicine; Visit Provider Internal Medicine Nephrology | DX: I95.1 Orthostatic hypotension (principal); N18.31 Chronic kidney disease, stage 3a | CPT/HCPCS: 99212 ==